=== PATIENT | female | born 1935 | race Caucasian/White ===

== ENCOUNTER 2016-08-16 06:38 | Inpatient (IN) | payer OTHER ==
[2016-07-18 09:13] VITALS: Ht 165.1 cm; Wt 96.3 kg
--- NOTE | 2016-07-18 09:52 | PAT Medication Instructions ---
Service Date Jul 18, 2016. Current Home Medication List Acetaminophen (Tylenol Arthritis Ext Rel), 1,300 MG PO Q8H PRN for Pain Alendronate Sodium (Fosamax), 70 MG PO WK Aspirin (Aspirin 81), 1 TAB PO QAM B-Complex Vitamins (Vitamin B Complex), 1 TAB PO NOON Baclofen (Lioresal), 10-20 MG PO HS PRN for Muscle Spasms Biotin (Biotin), 2,500 MCG PO QAM Calcium (Caltrate), 600 MG PO NOON/PM Epoetin Darci (Procrit), 10,000 UNITS SC [id number] Ferrous Sulfate (Ferrous Sulfate), 1 TAB PO NOON Fish Oil (Vallecitos-3), 1 CAP PO noon/pm Fluticasone Propionate (Nasal) (Flonase), 2 SPRAYS NOVA DAILY PRN for Nasal Congestion Glipizide (Glipizide Xl), 2.5 MG PO NOON/HS Insulin Aspart Protamine & Asp (Novolog Mix 70/30), 3 UNITS SC BIDM Levothyroxine Sodium (Synthroid), 75 MCG PO QAM Losartan Potassium (Cozaar), 50 MG PO noon Metoprolol Succ (Toprol Xl) (Toprol-Xl), 25 MG PO QAM Nitroglycerin (Nitrolingual 60 Union), 1 SPRAY for chest pain Pioglitazone Hcl (Actos), 45 MG PO QAM Probiotic Product (Probiotic), 1 TAB PO QAM Simvastatin (Zocor), 40 MG PO QPM Tramadol (Ultram), 50 MG PO Q6H PRN for Pain [Oxybutynin], 5 MG PO HS Medication Instructions For Your Scheduled Surgery Alendronate Sodium (Fosamax), 70 MG PO WK (continue as usual) Epoetin Darci (Procrit), 10,000 UNITS SC [id number] (continue as usual) Nitroglycerin (Nitrolingual 60 Union), 1 SPRAY for chest pain (if needed) - Hold the following medications 2 weeks prior to surgery: Fish Oil (Vallecitos-3), 1 CAP PO noon/pm Biotin (Biotin), 2,500 MCG PO QAM - Hold the following medications 24 hours prior to surgery: Losartan Potassium (Cozaar), 50 MG PO noon - Hold the following medications the morning of surgery: Probiotic Product (Probiotic), 1 TAB PO QAM Pioglitazone Hcl (Actos), 45 MG PO QAM Glipizide (Glipizide Xl), 2.5 MG PO NOON/HS Ferrous Sulfate (Ferrous Sulfate), 1 TAB PO NOON Insulin Aspart Protamine & Asp (Novolog Mix 70/30), 3 UNITS SC BIDM Calcium (Caltrate), 600 MG PO NOON/PM B-Complex Vitamins (Vitamin B Complex), 1 TAB PO NOON - Take the following medications the morning of surgery with a sip of water: Tramadol (Ultram), 50 MG PO Q6H PRN for Pain (can take up to four hours prior to surgery if needed) Metoprolol Succ (Toprol Xl) (Toprol-Xl), 25 MG PO QAM Levothyroxine Sodium (Synthroid), 75 MCG PO QAM Fluticasone Propionate (Nasal) (Flonase), 2 SPRAYS NOVA DAILY PRN for Nasal Congestion (if needed) Aspirin (Aspirin 81), 1 TAB PO QAM Acetaminophen (Tylenol Arthritis Ext Rel), 1,300 MG PO Q8H PRN for Pain (if needed) - Take the following medications as scheduled the night before surgery: Oxybutynin 5 MG PO HS Tramadol (Ultram), 50 MG PO Q6H PRN for Pain (if needed) Simvastatin (Zocor), 40 MG PO QPM Glipizide (Glipizide Xl), 2.5 MG PO NOON/HS Insulin Aspart Protamine & Asp (Novolog Mix 70/30), 3 UNITS SC BIDM Calcium (Caltrate), 600 MG PO NOON/PM Baclofen (Lioresal), 10-20 MG PO HS PRN for Muscle Spasms Acetaminophen (Tylenol Arthritis Ext Rel), 1,300 MG PO Q8H PRN for Pain If you have any questions please call us at [phone] or [phone] ( Anjali) or [phone]
[2016-07-18 10:27] LABS: BASO % 0.5 %; BASO ABS # 0.03 K/uL (0-0.2); COMPLETE YES; EOS % 3.3 %; HEMATOCRIT 29.6 % (37-47); IG% 0.2 %; LYMPH % 18.3 %; LYMPH ABS # 1.11 K/uL (1.2-3.4); MEAN CELL VOLUME 95.5 fL (80-100); MEAN CORPUSCULAR HEMOGLOBIN 29.4 pg (25-34); MEAN CORPUSCULAR HGB CONC 30.7 g/dl (32-36); MONO % 11.7 %; PLATELET COUNT 191 K/uL (130-400); WHITE BLOOD COUNT 6.08 K/uL (4.8-10.8)
[2016-07-18 10:37] LABS: PROTHROMBIN TIME (PATIENT) 11.1 SECONDS (9.0-12.0)
[2016-07-18 11:00] LABS: BUN/CREATININE RATIO 25.4 (10-20); CALCIUM 8.8 mg/dl (8.5-10.1); CREATININE 1.3 mg/dl (0.60-1.20); POTASSIUM 4.8 mmol/L (3.5-5.1)
[2016-07-18 11:07] LABS: ESTIMATED AVERAGE GLUCOSE 134 mg/dl; HA1C FLAG Normal (Normal)
--- NOTE | 2016-08-13 11:07 | HISTORY & PHYSICAL EXAMINATION ---
DATE OF ADMISSION: 08/16/2016 CHIEF COMPLAINT: Bilateral knee pain, left side greater than right. HISTORY OF PRESENT ILLNESS: The patient is a 80-year-old white female with fairly chronic underlying diabetes, stage III kidney disease and chronic anemia who presents for surgical treatment of her left knee. She has had a long history of bilateral knee pain and discomfort, left side greater than the right. This has been managed by my partner Dr. Benites. She has been getting injections which helped for about a month and that is about it. Pain has become more debilitating over time. The left side is worse than the right. She limps all the time. She has nighttime pain. She would like her left knee replaced. The patient has been seen by her medical doctor, Dr. Green, as well as her oncologist, Dr. Ulloa and is cleared for surgery. PAST MEDICAL HISTORY: Significant for: 1. Diabetes x10 years with a hemoglobin A1c of 6.3. 2. Hypothyroidism. 3. Obesity with a BMI of 35. 4. Sleep apnea. 5. Gastroesophageal reflux disease. 6. Hiatal hernia. 7. Skin cancer. 8. Stage III renal insufficiency. 9. Pernicious anemia. PAST SURGICAL HISTORY: Include: 1. Appendectomy. 2. Cholecystectomy. ALLERGIES: BENEDICT INHIBITORS, METFORMIN, CIPROFLOXACIN. CURRENT MEDICINES: Include: 1. Procrit every 4 weeks. 2. Iron infusions. 3. Ranitidine 300 mg at nighttime. 4. Levothyroxine 75 mcg a day. 5. Losartan 50 mg a day. 6. Fosamax. 7. Phenergan p.r.n. 8. Glipizide 2.5 mg 2 pills 30 minutes before meals. 9. Actos 45 mg. 10. NovoLog insulin 11. Oxybutynin 5 mg daily. 12. Toprol 25 mg. 13. Calcium with D. 14. Aspirin 81 mg a day. SOCIAL HISTORY: A 80-year-old white female. She is . FAMILY HISTORY: Significant for diabetes. REVIEW OF SYSTEMS: Significant for diabetes. Denies any chest pain, no shortness of breath. No history of DVT or PE. She has chronic renal insufficiency. She has got chronic anemia on iron infusions as well as Procrit. PHYSICAL EXAMINATION: GENERAL: Reveals pleasant elderly female. HEAD, EYES, EARS, NOSE, AND THROAT EXAMINATION: Benign. NECK: Supple. No lymphadenopathy. LUNGS: Clear to auscultation. HEART: Regular rate and rhythm. ABDOMEN: Soft, nontender, nondistended. EXTREMITY EXAMINATION: Grossly neurovascularly intact except as follows: Examination of both lower extremities reveals the patient walks independently. Examination of the left knee reveals bony hypertrophy medially. She is tender over the medial joint line. Small knee effusion. Range of motion is 5-120. No instability. X-RAYS: X-rays of the left knee revealed advanced left knee DJD. She has got complete loss of her medial joint space. She has osteophytes in all 3 compartments. ASSESSMENT: A 80-year-old white female diabetic with stage III kidney disease and chronic anemia on Procrit with advanced DJD pain. She has failed conservative treatment and would like to have her left knee replaced. She has been seen by her primary care physician as well as the weatherization director and cleared for surgery. PLAN: We are going to take her the operating room and do a left total knee replacement. The risks and benefits of this procedure to the patient including but not limited to DVT, PE, , infection, neurological injury, neurovascular, bleeding problem, pain, limited range of motion, stiffness, failure to relieve her symptoms, incomplete relief of symptoms, need for further surgery in the future, fracture, leg length inequality, nerve palsy, persistent pain. The patient understands and desires to proceed. Informed consent was obtained. We did talk to her about taking her metoprolol the morning of surgery. [facility]. She is hoping to be discharged to home using [facility] home health program and her 's assistance. I will see her back 2 weeks postop.
[2016-08-16] VITALS (7 sets, daily range): BP systolic 128–172; BP diastolic 53–78; PULSE 54–80; TEMP 36.3–37; O2SAT 92–100
[~2016-08-16] VITALS: Ht 165.1 cm; Wt 96.3 kg
[~2016-08-16 06:38] MED LIST: ACET1TAB84 PO; ACETAMINOPHEN 500 MG TAB PO SCH; ACT/45 PO; ALEN70TA4 PO; ASPI-435 PO; B-COTAB18 PO; BACL1TAB PO; BIOT1CAP4 PO; BUPIVACAINE 0.25% 30 ML VIAL ONE; BUPIVACAINE 0.5 % 5 MG/1 ML PF 10ML VIAL ONE; BUPIVACAINE LIPOSOME 266 MG, BUPIVACAINE/EPINEPHRINE INJ 50 ML, SODIUM CHLORIDE 0.9% PF... INFIL SCH; CALCTAB5 PO; CEFAZOLIN 2000 MG/60 ML D5W 60 ML IV SCH; EPGI20M SC; FAMOTIDINE 20 MG TAB PO SCH; FERR1TAB62 PO; FLUT0.0529 NAE; GABAPENTIN 300 MG CAP PO SCH; GLIP-172 PO; LACTATED RINGER'S 1000ML 1,000 ML IV SCH; LACTATED RINGER'S 1000ML IV SCH; LEVO75TA PO; LOSA50TA6 PO; METO25TA3 PO; METOCLOPRAMIDE HCL 10 MG TAB PO SCH; MISCCAP80 PO; NITRSPR6; NVLGI7030 SC; OMEG10007 PO; OXYBUTYNIN PO; SCOPOLAMINE 1.5 MG TDSY TD SCH; SIMV40TA2 PO; TRAM-10 PO; TRANEXAMIC ACID INJ 1,000 MG in SODIUM CHLORIDE 0.9% 100ML 100 ML IV SCH
--- NOTE | 2016-08-16 07:30 | History & Physical Bridge Note ---
H&P Re-Evaluation Bridge Note: I have examined the patient, reviewed the History & Physical and in the interval since the performance of the History & Physical I have noted the following changes of clinical significance: No changes noted
[2016-08-16] MEDS ORDERED: FENTANYL CITRATE INJ 50 MCG/1 ML 2 ML VIAL ONE (08:33)
[2016-08-16] MEDS ORDERED: MIDAZOLAM HCL 1 MG/ML 2ML VIAL ONE ×2 (08:33→08:34)
[2016-08-16] MEDS ORDERED: LACTATED RINGER'S 1000ML 1,000 ML IV PRN (08:50)
[2016-08-16] MEDS ORDERED: ONDANSETRON INJ 2 MG/ML 2 ML VIAL IV PRN ×2 (09:00→11:15)
[2016-08-16] MEDS ORDERED: FENTANYL CITRATE INJ 50 MCG/1 ML 2 ML VIAL IV PRN (09:00)
[2016-08-16] MEDS ORDERED: BUPIVACAINE/EPINEPHRINE 0.25% 1:200,000 30 ML VIAL ONE (09:21)
[2016-08-16] MEDS ORDERED: BACITRACIN 50000 UNIT VIAL ONE (09:21)
[2016-08-16] MEDS ORDERED: BUPIVACAINE LIPOSOME 1/3% 266 MG/20 ML VIAL INFIL ONE (09:21)
[2016-08-16] MEDS ORDERED: SODIUM CHLORIDE 0.9% PF 50 ML VIAL ONE (09:21)
[2016-08-16] MEDS ORDERED: PROPOFOL IV EMULSION 10 MG/ML 20 ML VIAL IV ONE (09:58)
[2016-08-16] MEDS ORDERED: LIDOCAINE HCL 2% 2 ML VIAL (20MG/ML) ONE (11:01)
--- NOTE | 2016-08-16 11:06 | [facility] Post Operative Brief Note ---
Immediate Operative Summary Operative Date Aug 16, 2016. Pre-Operative Diagnosis Left Knee Advanced Degenerative Joint Disease Post-Operative Diagnosis Left Knee Advanced Degenerative Joint Disease Procedure(s) Performed Left Total Knee Arthroplasty Surgeon Dr. Coronado Ship Manager Surgeon(s) TABATHA Bourne Estimated Blood Loss 50 ml Findings Left Knee DJD Fluids (cc crystalloids) 1200 cc Specimens A. Left Knee Bone and Tissue Drains HMV to OrthoPAT Anesthesia Spinal Complication(s) None Disposition Recovery Room / PACU
[2016-08-16] MEDS ORDERED: GLUCOSE 40% GEL 15 GM TUBE PO PRN (11:15)
[2016-08-16] MEDS ORDERED: BACLOFEN 10 MG TAB PO PRN (11:15)
[2016-08-16] MEDS ORDERED: GLUCAGON FOR INJ 1 MG VIAL SQ PRN (11:15)
[2016-08-16] MEDS ORDERED: METOCLOPRAMIDE HCL INJ 5 MG/ML 2 ML VIAL IV PRN (11:15)
[2016-08-16] MEDS ORDERED: ALUMINUM/MAGNESIUM/SIMETH (MAALOX MAX) 30 ML UDC PO PRN (11:15)
[2016-08-16] MEDS ORDERED: DiphenhydrAMINE HCL 50 MG/ML VIAL IV PRN (11:15)
[2016-08-16] MEDS ORDERED: NO NSAIDS SCH (11:15)
[2016-08-16] MEDS ORDERED: HYDROmorphone INJ 0.5 MG/0.5 ML SYR IV PRN (11:15)
[2016-08-16] MEDS ORDERED: BISACODYL 10 MG SUPP PR PRN (11:15)
[2016-08-16] MEDS ORDERED: FLUTICASONE PROPIONATE NA SPR 16 GM BTL NAE PRN (11:15)
[2016-08-16] MEDS ORDERED: MAGNESIUM HYDROXIDE SUSP 30 ML UDC PO PRN (11:15)
[2016-08-16] MEDS ORDERED: DEXTROSE 50% 50 ML SYR IV PRN (11:15)
[2016-08-16] MEDS ORDERED: TRAMADOL HCL 50 MG TAB PO PRN (11:15)
[2016-08-16] MEDS ORDERED: ZOLPIDEM TARTRATE 5 MG TAB PO PRN (11:15)
[2016-08-16] MEDS ORDERED: SILVER SULFADIAZINE 1% CR 50 GM JAR EXT PRN (11:15)
[2016-08-16] MEDS ORDERED: GLUCOSE 10 TABS/TUBE PO PRN (11:15)
[2016-08-16] MEDS ORDERED: NON-FORMULARY MEDICATION (B-Complex Vitamins (Vitamin B Complex) 1 TAB) PO SCH (11:15)
[2016-08-16] MEDS ORDERED: NITROGLYCERIN SL SPR 4.9 GM BTL SL PRN (11:15)
--- NOTE | 2016-08-16 11:54 | OPERATIVE REPORT ---
DATE OF OPERATION: 08/16/2016 SURGEON: Dr. Alberto Coronado. COATER OPERATOR: TABATHA Yancey PREOPERATIVE DIAGNOSIS: Left knee degenerative joint disease. POSTOPERATIVE DIAGNOSIS: Same. PROCEDURE PERFORMED: Left cemented posterior stabilized total knee arthroplasty. COMPLICATIONS: None. ESTIMATED BLOOD LOSS: Minimal. TOURNIQUET TIME: 72 minutes at 300 mmHg. ANESTHESIA: Spinal with adductor canal block. DRAINS: Hemovac drain to the OrthoPAT system. OPERATIVE INDICATIONS: The patient is a 81-year-old elderly female who has had a long history of bilateral knee pain and discomfort, left side greater than the right. The patient has been through extensive conservative treatment, which had been unsuccessful. Knees have been really limiting her activities and ability to maintain an independent lifestyle. The patient was medically optimized and indicated for total knee arthroplasty. Of note, the patient has a chronic anemia and on Procrit. As a result, we did use the OrthoPAT system to try and conserve blood for reinfusion. We also left the tourniquet up during the case until closure. OPERATIVE FINDINGS: Operative findings revealed advanced left knee DJD. She had extensive grade 4 [id number] disease in all 3 compartments, most severe in the medial side. She had extensive eburnation of the medial femoral condyle and tibial plateau. OPERATIVE IMPLANTS: Operative implants consisted of: 1. Biomet Vanguard size 62.5 left posterior stabilized femoral component. 2. Biomet size 71 tibial tray. 3. A 10-mm posterior stabilized polyethylene insert. 4. A 31 x 8 all poly patella. OPERATIVE PROCEDURE: The patient was taken to the operating room, identified and placed on the operating table in supine position. All contact areas were appropriately padded. IV antibiotics were provided by anesthesia team. A spinal anesthetic and adductor canal block had been provided in the holding area. Loco catheter was placed in sterile fashion. The left thigh tourniquet was then placed and left lower extremity was then prepped and draped in the usual sterile fashion. The left leg was elevated and exsanguinated with an Esmarch and tourniquet was placed at 300 mmHg. An anterior approach of the left knee was then performed through a longitudinal incision centered over the patella. Sharp dissection was carried through the subcutaneous tissue down to the level of the extensor mechanism. A medial parapatellar arthrotomy incision was made. Some subperiosteal dissection was carried out medially. The fat pad was resected from beneath the patellar tendon. The lateral patellofemoral ligament was released. The patella was everted and knee was flexed. The osteophytes were taken off the distal femur. The ACL and PCL were then released from the distal femur and the tibia subluxated anteriorly. The external tibial alignment jig was then placed in the anterior face of the tibia and adjusted 16 mm medially. Proximal tibial cut was made to remove about a millimeter of bone from the most deficient aspect of the posteromedial tibial plateau. This did take a fairly large piece off laterally. Tibia was then sized to a size 71. Some osteophytes were taken off medial and posteromedially. Attention was then drawn to the femur. The distal femur was entered with a sharp drill bit. Intramedullary canal was suctioned. A left 5-degree valgus cutting guide was placed. Distal femoral cutting block was pinned in place. Distal femoral cut was made to take an additional 3 mm of bone off the distal femur. Of note, the patient had significant flexion contracture. Distal femoral cut was made. The femur was then sized to a size 62.5. We did downsize this slightly. The AP cutting block was pinned parallel to the epicondylar axis, which was 6 degrees of external rotation. The anterior cut, anterior chamfer, posterior cut, and posterior chamfer cuts were made. Box cutting guide was placed and adjusted slightly lateral and the box cut was made. The knee was flexed. The remnants of the medial and lateral meniscus were excised. The osteophytes were taken off the posterior aspect of the femur. Trial femoral component was placed. Tibial tray was pinned in maximum external rotation and the drill and stem punch were used to create defect in proximal tibia for the tibial tray. The knee was then trialed and the 10-mm insert fit most appropriately. It was just a little bit loose, but I wanted to leave it loose as her knee was very tight preoperatively. Attention was then drawn to the patella. The patella was cleaned of all soft tissues. Patella thickness measured 24 mm, cut down to 14. It was sized to a size 31 patella. Lug holes were drilled for a 31 patella. The lateral osteophyte was removed. Patella button was placed. Knee was taken through range of motion and the patella tracked nicely with no thumbs test. Attention was then drawn toward placement of the permanent components. All trial components were removed. A bone plug was placed in the distal femur to limit blood loss. A double batch of Palacos G cement was mixed. A left size 62.5 posterior stabilized femoral component, size 71 tibial tray, a 10-mm posterior stabilized polyethylene insert, and a 31 x 8 all poly patella were then cemented in place. The knee was brought out into full extension until cement hardened. A final cement check was then performed. Pericapsular tissues were injected with a total of 100 mL of a combination of 20 mL of Exparel, 30 mL of normal saline, and 50 mL of 0.25% Marcaine with epinephrine. The patient did receive 1 gram of tranexamic acid. Once the cement hardened, the knee was irrigated. Two Hemovac drains were placed in the depth of the wound. The extensor mechanism was then closed with a combination of #1 PDS suture and #1 Vicryl suture in a [id number] fashion. Extensor mechanism was checked and found to be intact. Subcutaneous tissues were then closed with 2-0 Dexon suture in a buried interrupted fashion. Skin was closed skin thao. Leg was then cleaned and dried and a sterile dressing of Xeroform, 4 x 4, sterile cast padding and Neville bandage were applied. The tourniquet was then let down for a tourniquet time 72 minutes. The patient then transferred to the recovery room in stable condition. The patient tolerated the procedure well with no complications. All needle and sponge counts were correct at the end of the operation. I attest to the content of the Intraoperative Record and any orders documented therein. Any exceptio ns are noted below.
--- NOTE | 2016-08-16 11:55 | Anesthesiology Progress Note ---
Anesthesia Post Op Note Date & Time Aug 16, 2016 at 11:54 Vital Signs Pain Intensity: 0 Vital Signs Past 12 Hours Date Time Temp Pulse Resp B/P Pulse Ox O2 Delivery O2 Flow Rate FiO2 08/16/16 11:50 36.8 08/16/16 11:42 60 19 97 08/16/16 11:42 60 19 08/16/16 11:40 145/53 08/16/16 11:37 59 16 08/16/16 11:37 58 16 98 08/16/16 11:35 137/53 08/16/16 11:32 79 13 08/16/16 11:32 79 13 98 08/16/16 11:30 137/57 08/16/16 11:27 69 15 08/16/16 11:27 71 15 98 08/16/16 11:26 71 20 98 08/16/16 11:26 67 20 08/16/16 11:25 143/64 08/16/16 11:21 82 16 99 08/16/16 11:21 83 16 08/16/16 11:20 136/55 08/16/16 11:16 74 20 08/16/16 11:16 36.3 75 20 153/55 96 Nasal Cannula 2 08/16/16 11:16 67 20 153/55 94 08/16/16 07:31 36.9 68 18 172/66 97 Room Air Notes Mental Status: alert / awake / arousable, participated in evaluation Pt Amnestic to Procedure: No (recall as expected) Nausea / Vomiting: adequately controlled Pain: adequately controlled Airway Patency, RR, SpO2: stable & adequate BP & HR: stable & adequate Hydration State: stable & adequate Neuraxial Anesthesia: was administered, sensory block is resolving Anesthetic Complications: no major complications apparent Pt doing well.
[2016-08-16] MEDS ORDERED: PHENYLEPHRINE 100MCG/ML 5ML SYR ONE (12:02)
[2016-08-16] MEDS ORDERED: EpHEDrine SULFATE 50MG/5ML SYR ONE (12:07)
--- NOTE | 2016-08-16 12:14 | DIAGNOSTIC IMAGING REPORT ---
LEFT KNEE 1 OR 2 VIEWS ROUTINE CLINICAL HISTORY: AP/LATERAL IN PACU LEFT KNEE pain. Postoperative. COMPARISON: None. DISCUSSION: Status post total left knee arthroplasty. Good contact between prosthetic and underlying bone. Surgical drains are in position. Expected soft tissue postoperative change. IMPRESSION: Anatomic alignment status post total left knee arthroplasty. Electronically signed by: Dean Salinas M.D. 08/16/2016 12:11 PM Dictated Date/Time: 08/16/2016 12:11 PM
--- NOTE | 2016-08-16 14:15 | Medical Consult ---
Consultation Date of Consultation: Aug 16, 2016 @ 14:05 . Attending Physician: Alberto Coronado M.D. . Reason for Consultation: medical management . History of Present Illness 81 YO female followed by Dr. Green for Family Medicine. History of hypertension, DM type 2 on insulin, and other problems noted below. Left TKA performed today by Dr. Coronado under spinal anesthesia with adductor canal block. EBL negative. Doing well postoperatively. No chest pain. Minimal cough; no dyspnea. No nausea or vomiting. Postop pain well-controlled. Postoperative blood sugar was 132. . 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 Family History FATHER Pancreatic cancer BROTHER Cancer DAUGHTER Cervical cancer Social History Smoking Status: Former Smoker Alcohol Use: none Marital Status: Housing Status: lives with family Allergies Coded Allergies: Metformin (Verified Allergy, Intermediate, GI SYMPTOMS, 08/16/16) Ciprofloxacin (Verified Allergy, Mild, RASH, 08/16/16) BENEDICT Inhibitors (Verified Allergy, Unknown, COUGH, 08/16/16) Home Medications Reported Home Medications Medications Dose Route/Sig Max Daily Dose Days Date Category Dose Instructions [Oxybutynin] 5 Mg PO HS 07/18/16 Reported Vitamin B Complex (B-Complex Vitamins) 1 Tab Tab 1 Tab PO NOON 07/18/16 Reported Biotin 2,500 Mcg Cap 2,500 Mcg PO QAM 07/18/16 Reported [place]-3 (Fish Oil) 1 Ea Cap 1 Cap PO NOON/PM 07/18/16 Reported Probiotic (Probiotic Product) 1 Cap Cap 1 Tab PO QAM 07/18/16 Reported Caltrate (Calcium) 600 Mg Tab 600 Mg PO NOON/PM 12/09/15 Reported Tylenol Arthritis Ext Rel (Acetaminophen) 650 Mg Cplt 1,300 Mg PO Q8H PRN 12/09/15 Reported Cozaar (Losartan Potassium) 50 Mg Tab 50 Mg PO NOON 12/09/15 Reported Toprol-Xl (Metoprolol Succinate) 25 Mg Tabcr 25 Mg PO QAM 12/09/15 Reported Zocor (Simvastatin) 40 Mg Tab 40 Mg PO QPM 12/09/15 Reported Nitrolingual 60 [place] (Nitroglycerin) 1 [place] 1 [place] PRN 10/19/15 Reported Ultram (Tramadol HCl) 50 Mg Tab 50 Mg PO Q6H PRN 10/19/15 Reported Aspirin 81 (Aspirin) 81 Mg Tab 1 Tab PO QAM 11/05/14 Reported Novolog Mix 70/30 (Insulin Aspart Protamine & Asp) 1 Inj Inj 3 Units SC BIDM 11/05/14 Reported 6 units when blood sugar is high Lioresal (Baclofen) 10 Mg Tab 10-20 Mg PO HS PRN 11/05/14 Reported Ferrous Sulfate 325 Mg Tab 1 Tab PO NOON 11/05/14 Reported Flonase (Fluticasone Propionate (Nasal)) 50 Mcg/Act Spr 2 Sprays NOVA DAILY PRN 11/05/14 Reported Actos (Pioglitazone Hcl) 45 Mg Tab 45 Mg PO QAM 11/05/14 Reported Fosamax (Alendronate Sodium) 70 Mg Tab 70 Mg PO WK 11/05/14 Reported Synthroid (Levothyroxine Sodium) 75 Mcg Tab 75 Mcg PO QAM 11/05/14 Reported Glipizide Xl (Glipizide) 2.5 Mg Tab 2.5 Mg PO NOON/HS 11/05/14 Reported Procrit (Epoetin Darci) 20,000 Units Inj 10,000 Units SC [id number] 11/05/14 Reported NEXT DOSE 08/03/16 Current Inpatient Medications Current Inpatient Medications Medications (Trade) Dose Ordered Sig/Lizy Route Start Time Stop Time Status Last Admin Dose Admin Lactated Ringer's 1,000 ml @ 60 mls/hr [id number] IV 08/16/16 06:00 08/16/16 22:39 08/16/16 07:50 60 MLS/HR Cefazolin Sodium (Ancef 2000mg/60 ml D5W) 60 ml @ 100 mls/hr PREOP IV 08/16/16 06:00 08/16/16 18:00 08/16/16 09:29 100 MLS/HR Acetaminophen 1000 mg 1,000 mg PREOP PO 08/16/16 06:00 08/16/16 18:00 08/16/16 07:48 1,000 MG Bupivacaine Liposome/ Bupivacaine HCl/ Epinephrine Bitart/Sodium Chloride/Syringe (Exparel/ BUPIVACAINE/ EPINEPHRINE 0.25% Inj/Sodium Chloride 0.9% Pf Inj/Syringe) 100 ml @ 0 mls/hr 06 INFIL 08/16/16 06:00 08/16/16 18:00 08/16/16 10:30 100 MLS/HR Famotidine (Pepcid Tab) 20 mg PREOP PO 08/16/16 06:00 08/16/16 18:00 08/16/16 07:50 20 MG Gabapentin (Neurontin Cap) 300 mg PREOP PO 08/16/16 06:00 08/16/16 18:00 08/16/16 07:47 300 MG Metoclopramide HCl (Reglan Tab) 10 mg PREOP PO 08/16/16 06:00 08/16/16 18:00 08/16/16 07:48 10 MG Scopolamine (Transderm-Scop Patch) 1.5 mg PREOP TD 08/16/16 06:00 08/16/16 15:00 08/16/16 07:50 1.5 MG Miscellaneous (Remove Transderm-Scop Patch) 1 ea Q72H N/A 08/19/16 06:00 08/19/16 06:01 Miscellaneous Information 1 ea 1 ea QS N/A 08/16/16 16:00 08/18/16 05:59 Lactated Ringer's (Lr 1000ml) 1,000 ml @ 15 mls/hr Q24H IV 08/16/16 06:00 08/16/16 18:00 Fentanyl Citrate (Fentanyl Inj) 25 mcg Q5M PRN IV 08/16/16 09:00 08/16/16 16:00 Ondansetron HCl 4 mg 4 mg ONE PRN IV 08/16/16 09:00 08/16/16 16:00 Lactated Ringer's 1,000 ml @ 130 mls/hr Q7H42M PRN IV 08/16/16 08:50 08/16/16 16:00 Sodium Chloride 1,000 ml @ 100 mls/hr Q10H IV 08/16/16 14:30 08/17/16 14:29 Cefazolin Sodium/ Dextrose (Ancef Iv/D5 50ml) 60 ml @ 100 mls/hr Q8H IV 08/16/16 18:00 08/17/16 02:35 UNV Miscellaneous Medication (No Nsaids) 1 ea UD N/A 08/16/16 11:15 09/15/16 11:14 Acetaminophen (Tylenol Tab) 1,000 mg Q8H PO 08/16/16 18:00 09/15/16 17:59 Magnesium Hydroxide (Milk Of Magnesia Susp) 30 ml Q6H PRN PO 08/16/16 11:15 09/15/16 11:14 Bisacodyl (Dulcolax Supp) 10 mg DAILY PRN NM 08/16/16 11:15 09/15/16 11:14 Docusate Sodium (coLACE CAP) 100 mg BID PO 08/16/16 21:00 09/15/16 20:59 Diphenhydramine HCl (Benadryl Cap) 25 mg Q8H PRN PO 08/16/16 11:15 09/15/16 11:14 Diphenhydramine HCl (Benadryl Inj) 25 mg Q8H PRN IV 08/16/16 11:15 09/15/16 11:14 Al Hydrox/Mg Hydrox/Simethicone (Maalox Max Susp) 15 ml Q4H PRN PO 08/16/16 11:15 09/15/16 11:14 Zolpidem Tartrate (Ambien Tab) 5 mg HSZ PRN PO 08/16/16 11:15 09/15/16 11:14 Multivitamins (Multivitamin Tab) 1 tab QAM PO 08/17/16 09:00 09/16/16 08:59 Ondansetron HCl (Zofran Inj) 4 mg Q6H PRN IV 08/16/16 11:15 09/15/16 11:14 Metoclopramide HCl (Reglan Inj) 10 mg Q6H PRN IV 08/16/16 11:15 09/15/16 11:14 Ferrous Gluconate (Ferrous Gluconate Tab) 324 mg TIDM PO 08/16/16 17:45 09/15/16 17:44 Pantoprazole Sodium (Protonix Tab) 40 mg QAM PO 08/17/16 09:00 09/16/16 08:59 Silver Sulfadiazine (Silvadene 1% Crm 50GM Jar) 1 appln BID PRN EXT 08/16/16 11:15 09/15/16 11:14 Aspirin (Ecotrin Tab) 325 mg BID PO 08/16/16 21:00 09/15/16 20:59 Tramadol HCl 1 tablet for pain rating... Q4H PRN PO 08/16/16 11:15 09/15/16 11:14 Tranexamic Acid/ Sodium Chloride (Cyklokapron Inj/ Nss 100ml) 110 ml @ 660 mls/hr Q6H IV 08/16/16 16:00 08/16/16 16:09 Baclofen (Lioresal Tab) 10 mg HS PRN PO 08/16/16 11:15 09/15/16 11:14 Fluticasone Propionate (Flonase Nasal [place]) 2 sprays DAILY PRN NOVA 08/16/16 11:15 09/15/16 11:14 Insulin Aspart Prota 70%/Aspart 30% (novoLOG MIX 70/ 30) 3 units BIDM SC 08/16/16 17:45 09/15/16 17:59 UNV Levothyroxine Sodium (Synthroid Tab) 75 mcg QAM PO 08/17/16 09:00 09/16/16 08:59 UNV Losartan Potassium (coZAAR TAB) 50 mg DAILY PO 08/17/16 09:00 09/16/16 08:59 UNV Metoprolol Succinate (Toprol Xl Tab) 25 mg QAM PO 08/17/16 09:00 09/16/16 08:59 UNV Nitroglycerin (Nitrolingual [place]) 2 sprays Q1H PRN SL 08/16/16 11:15 09/15/16 11:14 UNV Pioglitazone HCl (ACTos TAB) 45 mg QAM PO 08/17/16 09:00 09/16/16 08:59 UNV Simvastatin (Zocor Tab) 40 mg QPM PO 08/16/16 21:00 09/15/16 20:59 UNV Tramadol HCl (Ultram Tab) 50 mg Q6H PRN PO 08/16/16 11:15 09/15/16 11:14 UNV Non-Formulary Medication (B-Complex Vitamins (Vitamin B Complex)) 1 tab NOON PO 08/16/16 11:15 09/15/16 11:14 UNV Non-Formulary Medication (Biotin ) 2,500 mcg QAM PO 08/17/16 09:00 09/16/16 08:59 UNV Non-Formulary Medication (Calcium (Caltrate)) 600 mg NOON/PM PO 08/16/16 11:15 09/15/16 11:14 UNV Non-Formulary Medication (Probiotic Product (Probiotic)) 1 tab QAM PO 08/17/16 09:00 09/16/16 08:59 UNV Non-Formulary Medication ([Oxybutynin] ) 5 mg HS PO 08/16/16 21:00 09/15/16 20:59 UNV Hydromorphone HCl (Dilaudid Inj) 0.5 mg Q1H PRN IV 08/16/16 11:15 08/30/16 11:14 UNV Insulin Human Regular (novoLIN-R) 1 units ACHS SC 08/16/16 16:00 09/15/16 15:59 UNV Glucose (Glucose 40% Gel) 15-30 GRAMS 15 GRAMS... UD PRN PO 08/16/16 11:15 09/15/16 11:14 UNV Glucose (Glucose Chew Tab) 4-8 Tablets 4 Tabl... UD PRN PO 08/16/16 11:15 09/15/16 11:14 UNV Dextrose (Dextrose 50% 50ML Syringe) 25-50ML OF 50% DW IV FOR... UD PRN IV 08/16/16 11:15 09/15/16 11:14 UNV Glucagon (Glucagon Inj) 1 mg UD PRN SQ 08/16/16 11:15 09/15/16 11:14 UNV Review of Systems Constitutional: No fever Respiratory: + cough (mild postop cough), No shortness of breath Cardiovascular: No chest pain Abdomen: No GI bleeding, No constipation, No diarrhea, No nausea, No vomiting Musculoskeletal: + joint pain (left knee) Genitourinary - Female: No dysuria, No hematuria Endocrine: + problem reported (blood sugars well-controlled at home) Hematologic / Lymphatic: + abnormal bleeding/bruising (bruises easily) Physical Exam Date Time Temp Pulse Resp B/P Pulse Ox O2 Delivery O2 Flow Rate FiO2 08/16/16 12:42 98 Nasal Cannula 2.0 08/16/16 12:10 36.5 68 16 136/57 98 Nasal Cannula 2.0 08/16/16 12:10 98 Nasal Cannula 2.0 08/16/16 12:00 62 20 143/55 96 Nasal Cannula 2 08/16/16 11:51 58 21 97 08/16/16 11:51 61 21 08/16/16 11:50 140/54 08/16/16 11:50 36.8 08/16/16 11:48 58 16 97 08/16/16 11:48 59 16 08/16/16 11:45 143/66 08/16/16 11:43 68 17 08/16/16 11:43 71 17 96 08/16/16 11:42 60 19 97 08/16/16 11:42 60 19 08/16/16 11:40 145/53 08/16/16 11:37 59 16 08/16/16 11:37 58 16 98 08/16/16 11:35 137/53 08/16/16 11:32 79 13 08/16/16 11:32 79 13 98 08/16/16 11:30 137/57 08/16/16 11:27 69 15 08/16/16 11:27 71 15 98 08/16/16 11:26 71 20 98 08/16/16 11:26 67 20 08/16/16 11:25 143/64 08/16/16 11:21 82 16 99 08/16/16 11:21 83 16 08/16/16 11:20 136/55 08/16/16 11:16 74 20 08/16/16 11:16 36.3 75 20 153/55 96 Nasal Cannula 2 08/16/16 11:16 67 20 153/55 94 08/16/16 07:31 36.9 68 18 172/66 97 Room Air General Appearance: WD/WN, no apparent distress Head: normocephalic, atraumatic Eyes: normal inspection, PERRL, EOMI, sclerae normal ENT: normal ENT inspection, hearing grossly normal, + pertinent finding (upper and lower dentures) Neck: supple, no adenopathy, thyroid normal, no JVD, trachea midline Respiratory/Chest: lungs clear, normal breath sounds, no respiratory distress, no accessory muscle use Cardiovascular: regular rate, rhythm, no edema, no gallop, no JVD, no murmur Abdomen/GI: normal bowel sounds, non tender, soft, no organomegaly Genitourinary - Female: + pertinent finding ([place] cath draining clear urine) Extremities/Musculoskelatal: + pertinent finding (LLE wrapped with elastic bandage; RLE w anti-embolic stocking applied; bilad SCD's applied) Neurologic/Psych: 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 II-XII nml as tested (PERRL, EOMI), alert, normal mood/ affect, oriented x 3 Lymphatic: no adenopathy (no cervical adenopathy) Laboratory Results Item Value Date Time Hemoglobin 9.1 g/dL L 07/18/16 1008 Hematocrit 29.6 % L 07/18/16 1008 White Blood Count 6.08 K/uL 07/18/16 1008 Platelet Count 191 K/uL 07/18/16 1008 Prothrombin Time 11.1 SECONDS 07/18/16 1008 Prothromb Time International Ratio 1.0 07/18/16 1008 Activated Partial Thromboplast Time 25.6 SECONDS 07/18/16 1008 Sodium Level 144 mmol/L 07/18/16 1008 Potassium Level 4.8 mmol/L 07/18/16 1008 Chloride Level 112 mmol/L H 07/18/16 1008 Carbon Dioxide Level 28 mmol/L 07/18/16 1008 Blood Urea Nitrogen 33 mg/dl H 07/18/16 1008 Creatinine 1.30 mg/dl H 07/18/16 1008 Random Glucose 109 mg/dl H 07/18/16 1008 Calcium Level 8.8 mg/dl 07/18/16 1008 EKG performed 18-JUL-2016 10:13:07 reviewed: NSR at 60 / min, no acute changes. Last 24 Hours Test 08/16/16 06:59 08/16/16 11:24 08/16/16 12:22 Bedside Glucose 117 mg/dl 132 mg/dl 146 mg/dl . Assessment & Plan S/P LEFT TKA Doing well postoperatively. HYPERTENSION Postop BP 136/57. Continue metoprolol and losartan with hold parameters. SLEEP APNEA Continue CPAP. GERD Usually takes ranitidine at home. Pantoprazole ordered postoperatively. CKD III CKD III with baseline creatinine of 1.3-1.6. Preop creatinine 1.3. Avoid NSAID's if possible. Follow labs. DM TYPE 2 Well-controlled at home. Preop Hgb A1C = 6.3. Patient appears to be very sensitive to insulin. Hold glipizide and NovoLog Mix 70/30 during hospital stay. Utilize Lantus / NovoLog during her hospital stay, approximating her home insulin dosage. HYPOTHYROIDISM Continue usual dose of levothyroxine. ANEMIA Chronic anemia, apparently due to combination of B12 deficiency and CKD. Follow H/H postop. VTE PROPHYLAXIS Per Ortho protocol. TEDS and SCD's applied postop. Thank you for this consultation. We will follow the patient with you during their hospital stay. I will be on duty until 23:[address] Nelson will be rounding during day shift starting 08/17. You can reach a member of the [facility]ist Team 28/11 via pager @ [phone]. You can reach me via cell @ [phone]. .
[2016-08-16] MEDS: TRAMADOL HCL 50 MG TAB PO PRN ×2 (14:25→18:29)
[2016-08-16] MEDS: SODIUM CHLORIDE 0.9% 1000ML 1,000 ML IV SCH (14:26)
[2016-08-16] MEDS: CHECK SCOPOLAMINE PATCH PLACEMENT SCH (15:52)
[2016-08-16] MEDS ORDERED: INSULIN HUMAN REGULAR SC SCH (16:00)
[2016-08-16] MEDS ORDERED: TRANEXAMIC ACID INJ 1,000 MG in SODIUM CHLORIDE 0.9% 100ML 100 ML IV SCH (16:00)
[2016-08-16] MEDS ORDERED: INSULIN 70% ASPART PROTAMINE/30% ASPART SC SCH (17:45)
[2016-08-16] MEDS: CEFAZOLIN IV 2,000 MG in DEXTROSE 5% 50ML 50 ML IV SCH (18:05)
[2016-08-16] MEDS: INSULIN ASPART 100 UNITS/ML 3 ML PEN SC SCH ×2 (18:13→21:24)
[2016-08-16] MEDS: ACETAMINOPHEN 500 MG TAB PO SCH (18:16)
[2016-08-16] MEDS: FERROUS GLUCONATE 324 MG TAB PO SCH (18:16)
--- NOTE | 2016-08-16 18:32 | PROGRESS NOTE ---
DATE: 08/16/2016 SUBJECTIVE: A 81-year-old female postop from a left knee replacement. She is doing well. Not having any pain yet. No chest pain or shortness of breath. Not feeling dizzy or lightheaded. OBJECTIVE: VITAL SIGNS: Temperature is 36.3. Vital signs stable. GENERAL: Physical examination reveals a pleasant elderly female. She is sitting up in bed and looks pretty comfortable. LUNGS: Clear to auscultation. HEART: Regular rate and rhythm. ABDOMEN: Soft, nontender, and nondistended. EXTREMITIES: Grossly neurovascularly intact except as follows: Examination of the left lower extremity reveals the leg to be well aligned. She can dorsiflex and plantarflex her foot appropriately. She is neurologically intact. X-RAYS: X-rays of the left knee from the recovery room reviewed. It shows left cemented posterior stabilized total knee arthroplasty. Components looked to be in good position. No signs of problems. ASSESSMENT: A 81-year-old white female postop from a left knee replacement, doing well. Pain is controlled. She is neurologically intact. PLAN: 1. DVT prophylaxis including thigh-high TEDs, SCDs, and aspirin twice a day. 2. PT/OT. Weightbearing as tolerated. Left total knee protocol. 3. Pain control. Doing well with current pain regimen. 4. IV antibiotics x24 hours. 5. Disposition: She is planning to be discharged to home with some home health once adequately recovered.
[2016-08-16] MEDS: SIMVASTATIN 40 MG TAB PO SCH (21:16)
[2016-08-16] MEDS: DOCUSATE SODIUM 100 MG CAP PO SCH (21:16)
[2016-08-16] MEDS: ASPIRIN 325 MG ECTAB PO SCH (21:16)
[2016-08-16] MEDS: INSULIN GLARGINE SOLOSTAR 100 UNITS/ML 3 ML PEN SC SCH (21:23)
[2016-08-16] MEDS: OXYBUTYNIN CHLORIDE 5 MG TAB PO SCH (21:32)
[2016-08-16] MEDS ORDERED: MICONAZOLE NITRATE POWDER 43 GM EXT PRN (23:30)
[2016-08-17] VITALS (14 sets, daily range): BP systolic 138–188; BP diastolic 62–80; PULSE 65–77; TEMP 36.5–37.6; O2SAT 87–98
[2016-08-17] MEDS: CHECK SCOPOLAMINE PATCH PLACEMENT SCH ×3 (00:07→15:43)
[2016-08-17] MEDS: SODIUM CHLORIDE 0.9% 1000ML 1,000 ML IV SCH ×2 (00:44→12:10)
[2016-08-17] MEDS: INSULIN ASPART 100 UNITS/ML 3 ML PEN SC SCH ×5 (00:47→21:21)
[2016-08-17] MEDS: CEFAZOLIN IV 2,000 MG in DEXTROSE 5% 50ML 50 ML IV SCH (02:02)
[2016-08-17] MEDS: ACETAMINOPHEN 500 MG TAB PO SCH ×3 (02:02→18:05)
[2016-08-17] MEDS: TRAMADOL HCL 50 MG TAB PO PRN ×5 (02:11→19:44)
[2016-08-17 05:35] LABS: HEMATOCRIT 26.7 % (37-47); MEAN CELL VOLUME 92.4 fL (80-100); MEAN CORPUSCULAR HEMOGLOBIN 29.8 pg (25-34); MEAN CORPUSCULAR HGB CONC 32.2 g/dl (32-36); MEAN PLATELET VOLUME 10.2 fL (7.4-10.4); PLATELET COUNT 165 K/uL (130-400); RED BLOOD COUNT 2.89 M/uL (4.2-5.4); WHITE BLOOD COUNT 9.27 K/uL (4.8-10.8)
[2016-08-17 05:56] LABS: BUN/CREATININE RATIO 17.3 (10-20); CALCIUM 8.1 mg/dl (8.5-10.1); CREATININE 1.4 mg/dl (0.60-1.20); POTASSIUM 4.3 mmol/L (3.5-5.1)
[2016-08-17] MEDS: LEVOTHYROXINE 75 MCG TAB PO SCH (06:17)
--- NOTE | 2016-08-17 07:37 | PROGRESS NOTE ---
DATE: 08/17/2016 SUBJECTIVE: A 81-year-old white female postop day 1 from a left total knee replacement. She is doing pretty well. Pain is reasonably well controlled. No chest pain or shortness of breath. Not feeling dizzy or lightheaded. OBJECTIVE: VITAL SIGNS: Temperature 36.5. Vital signs stable. PHYSICAL EXAMINATION: GENERAL: Reveals a pleasant middle-aged female. She is sitting up in bed, looks pretty comfortable. LUNGS: Clear to auscultation. HEART: Regular rate and rhythm. ABDOMEN: Soft, nontender, nondistended. EXTREMITIES: Grossly neurovascularly intact except as follows: Examination of the left lower extremity reveals the leg to be well aligned. The patient can dorsiflex and plantarflex her foot appropriately. NEUROLOGIC: She is neurologically intact. LABORATORY DATA: Hemoglobin 8.6, hematocrit 26.7. Electrolytes are stable. Creatinine stable at 1.4. ASSESSMENT: A 81-year-old white female postop day 1 from left total knee replacement, doing pretty well. She has a history of chronic anemia. She is anemic but asymptomatic currently and we will follow her H\T\H. PLAN: 1. DVT prophylaxis including thigh-high TEDs, SCDs, and aspirin twice a day. 2. PT/OT. Weight bear as tolerated. Left total knee protocol. 3. Pain control. Doing pretty well with current pain regimen. 4. Anemia. She is anemic but currently asymptomatic. We will continue to follow her H\T\H and continue with iron supplementation. She gets Procrit monthly. 5. Disposition: She is hoping to be discharged to home with some home health once adequately recovered.
--- NOTE | 2016-08-17 08:49 | Anesthesiology Progress Note ---
Anesthesia Post Op Note Date & Time Aug 17, 2016 at 08:48 Vital Signs Vital Signs Past 12 Hours Date Time Temp Pulse Resp B/P Pulse Ox O2 Delivery O2 Flow Rate FiO2 08/17/16 07:01 36.5 72 19 175/74 92 Room Air 08/17/16 03:59 36.9 77 18 138/62 95 Room Air 08/16/16 23:35 37.0 62 18 137/53 92 CPAP Notes Mental Status: alert / awake / arousable, participated in evaluation Pt Amnestic to Procedure: Yes Nausea / Vomiting: adequately controlled Pain: adequately controlled Airway Patency, RR, SpO2: stable & adequate BP & HR: stable & adequate Hydration State: stable & adequate Neuraxial Anesthesia: sensory block resolved Anesthetic Complications: no major complications apparent
[2016-08-17] MEDS: MULTIVITAMIN TAB PO SCH (08:58)
[2016-08-17] MEDS: FERROUS GLUCONATE 324 MG TAB PO SCH ×3 (08:58→18:05)
[2016-08-17] MEDS: ASPIRIN 325 MG ECTAB PO SCH ×2 (08:59→20:58)
[2016-08-17] MEDS: CALCIUM 600MG + VIT D 400 IU TAB PO SCH (08:59)
[2016-08-17] MEDS: METOPROLOL SUCC 25MG EXT REL TAB PO SCH (08:59)
[2016-08-17] MEDS ORDERED: NON-FORMULARY MEDICATION (Biotin 2,500 MCG) PO SCH (09:00)
[2016-08-17] MEDS ORDERED: NON-FORMULARY MEDICATION (Probiotic Product (Probiotic) 1 TAB) PO SCH (09:00)
[2016-08-17] MEDS: PANTOprazole SOD 40 MG TAB PO SCH (09:00)
[2016-08-17] MEDS ORDERED: PIOGLITAZONE TAB 15 MG TAB PO SCH (09:00)
[2016-08-17] MEDS: LOSARTAN POTASSIUM 50 MG TAB PO SCH (09:01)
[2016-08-17] MEDS: DOCUSATE SODIUM 100 MG CAP PO SCH ×2 (09:01→20:58)
[2016-08-17] MEDS: INSULIN GLARGINE SOLOSTAR 100 UNITS/ML 3 ML PEN SC SCH ×2 (09:06→21:22)
--- NOTE | 2016-08-17 10:31 | Progress Note ---
Medicine Progress Note Date & Time of Visit: Aug 17, 2016 at 08:59. (Mari Hansen PA-C) Subjective Patient seen and examined on POD#1 s/p L TKA by Dr. Coronado. Pt was nauseous earlier this morning which resolved with Zofran. She is currently finishing up her breakfast without issues. She rates knee pain 7/10 currently. Has received Tramadol earlier this morning which helped. She denies dizziness, chest pain, SOB, abdominal pain, vomiting. Had 2 BM's after surgery yesterday. Loco catheter was removed this morning & has not voided yet at time of my exam. (Mari Hansen PA-C) Objective Last 8 Hrs Date Time Temp Pulse Resp B/P Pulse Ox O2 Delivery O2 Flow Rate FiO2 08/17/16 07:20 Room Air 08/17/16 07:01 36.5 72 19 175/74 92 Room Air 08/17/16 03:59 36.9 77 18 138/62 95 Room Air Physical Exam: General-pleasant alert elderly female, sitting up in bed with breakfast tray Eyes-anicteric ENT-hearing grossly intact Neck-trachea midline Lungs-CTA bilaterally, no wheezes, crackles, rhonchi, no respiratory distress Heart-RRR, no murmur Abdomen-soft , nontender, normal bowel sounds Extremities- s/p L TKA, drain in place with sanguinous drainage, SCD's in place bilaterally Neuro- alert, oriented x 3, affect normal Laboratory Results: Last 24 Hours Test 08/16/16 11:24 08/16/16 12:22 08/16/16 16:55 08/16/16 20:44 Bedside Glucose 132 mg/dl 146 mg/dl 231 mg/dl 280 mg/dl Test 08/17/16 00:42 08/17/16 05:13 08/17/16 08:11 Bedside Glucose 161 mg/dl 193 mg/dl White Blood Count 9.27 K/uL Red Blood Count 2.89 M/uL Hemoglobin 8.6 g/dL Hematocrit 26.7 % Mean Corpuscular Volume 92.4 fL Mean Corpuscular Hemoglobin 29.8 pg Mean Corpuscular Hemoglobin Concent 32.2 g/dl RDW Standard Deviation 45.7 fL RDW Coefficient of Variation 13.6 % Platelet Count 165 K/uL Mean Platelet Volume 10.2 fL Sodium Level 141 mmol/L Potassium Level 4.3 mmol/L Chloride Level 109 mmol/L Carbon Dioxide Level 25 mmol/L Anion Gap 7.0 mmol/L Blood Urea Nitrogen 24 mg/dl Creatinine 1.40 mg/dl Est Creatinine Clear Calc Drug Dose 37.4 ml/min Estimated GFR () 41.3 Estimated GFR (Non- 35.6 BUN/Creatinine Ratio 17.3 Random Glucose 185 mg/dl Calcium Level 8.1 mg/dl (Mari Hansen, PA-C) Assessment & Plan S/P LEFT TKA POD #[address] Coronado Pain control, wound care, activity per ortho Continue incentive spirometry PT/ OT CHRONIC ANEMIA From B12 deficiency and CKD Hg 9.1 ->8.6 EBL from surgery 50 mL Continue to monitor daily H/H Would transfuse for Hg < 8 HYPERTENSION BP intermittently elevated likely secondary to pain Continue metoprolol and losartan CKD STAGE III Baseline creat 1.3-1.6 Creat 1.3 preop -> 1.4 Avoid nephrotoxins including NSAIDs Monitor renal function DM TYPE 2 Controlled, recent A1c =6.3 Hold home oral diabetic medications and novolog 70/30 On basal Lantus and Novolog sliding scale BSG's running high 100s SLEEP APNEA Continue CPAP GERD On ranitidine at home PPI during hospitalization HYPOTHYROIDISM Continue levothyroxine VTE PROPHYLAXIS Per ortho DISPOSITION Per ortho Thank you for this consultation. We will follow the patient with you during their hospital stay. [facility] via pager @ . Patient seen in collaboration with Dr. Nelson. Please see his addendum. Current Inpatient Medications: Current Inpatient Medications Medications (Trade) Dose Ordered Sig/Lizy Route Start Time Stop Time Status Last Admin Dose Admin Miscellaneous (Remove Transderm-Scop Patch) 1 ea Q72H N/A 08/19/16 06:00 08/19/16 06:01 Miscellaneous Information 1 ea 1 ea QS N/A 08/16/16 16:00 08/18/16 05:59 08/17/16 07:22 1 EA Sodium Chloride (Nss 1000ml) 1,000 ml @ 100 mls/hr Q10H IV 08/16/16 14:30 08/17/16 14:29 08/17/16 00:44 100 MLS/HR Miscellaneous Medication (No Nsaids) 1 ea UD N/A 08/16/16 11:15 09/15/16 11:14 Acetaminophen (Tylenol Tab) 1,000 mg Q8H PO 08/16/16 18:00 09/15/16 17:59 08/17/16 02:02 1,000 MG Magnesium Hydroxide (Milk Of Magnesia Susp) 30 ml Q6H PRN PO 08/16/16 11:15 09/15/16 11:14 Bisacodyl (Dulcolax Supp) 10 mg DAILY PRN [place] 08/16/16 11:15 09/15/16 11:14 Docusate Sodium (coLACE CAP) 100 mg BID PO 08/16/16 21:00 09/15/16 20:59 08/16/16 21:16 100 MG Diphenhydramine HCl (Benadryl Cap) 25 mg Q8H PRN PO 08/16/16 11:15 09/15/16 11:14 Diphenhydramine HCl (Benadryl Inj) 25 mg Q8H PRN IV 08/16/16 11:15 09/15/16 11:14 Al Hydrox/Mg Hydrox/Simethicone (Maalox Max Susp) 15 ml Q4H PRN PO 08/16/16 11:15 09/15/16 11:14 Zolpidem Tartrate (Ambien Tab) 5 mg HSZ PRN PO 08/16/16 11:15 09/15/16 11:14 Multivitamins (Multivitamin Tab) 1 tab QAM PO 08/17/16 09:00 09/16/16 08:59 Ondansetron HCl (Zofran Inj) 4 mg Q6H PRN IV 08/16/16 11:15 09/15/16 11:14 08/17/16 07:25 4 MG Metoclopramide HCl (Reglan Inj) 10 mg Q6H PRN IV 08/16/16 11:15 09/15/16 11:14 Ferrous Gluconate (Ferrous Gluconate Tab) 324 mg TIDM PO 08/16/16 17:45 09/15/16 17:44 08/16/16 18:16 324 MG Pantoprazole Sodium (Protonix Tab) 40 mg QAM PO 08/17/16 09:00 09/16/16 08:59 Silver Sulfadiazine (Silvadene 1% Crm 50GM Jar) 1 appln BID PRN EXT 08/16/16 11:15 09/15/16 11:14 Aspirin (Ecotrin Tab) 325 mg BID PO 08/16/16 21:00 09/15/16 20:59 08/16/16 21:16 325 MG Tramadol HCl (Ultram Tab) 1 tablet for pain rating... Q4H PRN PO 08/16/16 11:15 09/15/16 11:14 08/17/16 07:21 50 MG Baclofen (Lioresal Tab) 10 mg HS PRN PO 08/16/16 11:15 09/15/16 11:14 Fluticasone Propionate (Flonase Nasal [place]) 2 sprays DAILY PRN NOVA 08/16/16 11:15 09/15/16 11:14 Levothyroxine Sodium (Synthroid Tab) 75 mcg DAILYBB PO 08/17/16 06:00 09/16/16 05:59 08/17/16 06:17 75 MCG Losartan Potassium (coZAAR TAB) 50 mg DAILY PO 08/17/16 09:00 09/16/16 08:59 Metoprolol Succinate (Toprol Xl Tab) 25 mg QAM PO 08/17/16 09:00 09/16/16 08:59 Nitroglycerin (Nitrolingual [place]) 2 sprays Q1H PRN SL 08/16/16 11:15 09/15/16 11:14 Pioglitazone HCl (ACTos TAB) 45 mg QAM PO 08/17/16 09:00 09/16/16 08:59 Simvastatin (Zocor Tab) 40 mg QPM PO 08/16/16 21:00 09/15/16 20:59 08/16/16 21:16 40 MG Calcium/Vitamin D (Caltrate Plus Tab) 1 tab QAM PO 08/17/16 09:00 09/16/16 08:59 Hydromorphone HCl (Dilaudid Inj) 0.5 mg Q1H PRN IV 08/16/16 11:15 08/30/16 11:14 Glucose (Glucose 40% Gel) 15-30 GRAMS 15 GRAMS... UD PRN PO 08/16/16 11:15 5/11/17 11:14 Glucose (Glucose Chew Tab) 4-8 Tablets 4 Tabl... UD PRN PO 08/16/16 11:15 09/15/16 11:14 Dextrose (Dextrose 50% 50ML Syringe) 25-50ML OF 50% DW IV FOR... UD PRN IV 08/16/16 11:15 09/15/16 11:14 Glucagon (Glucagon Inj) 1 mg UD PRN SQ 08/16/16 11:15 09/15/16 11:14 Insulin Glargine (Lantus Solostar Pen) 2 unit BID SC 08/16/16 21:00 09/15/16 20:59 08/16/16 21:23 2 UNIT Oxybutynin Chloride (Ditropan Tab) 5 mg HS PO 08/16/16 21:00 09/15/16 20:59 08/16/16 21:32 5 MG Insulin Aspart (novoLOG ASPART) SLIDING SCALE G... ACHS SC 08/17/16 01:00 09/16/16 00:59 Miconazole Nitrate (Desenex Powder) 1 appln PRN PRN EXT 08/16/16 23:30 09/15/16 23:29 08/17/16 06:31 1 APPLJeramy (Mari Hansen PA-C) ATTENDING ADDENDUM care coordinated with TABATHA Hansen please refer to her notes for full details, I agree with her notes patient seen and examined, records reviewed by myself as well on exam, patient seen somewhat drowsy but easily rousable and oriented x 3 states she feels tired denies chest pain, dyspnea, dizziness, nausea no other symptoms VS noted and reviewed oriented x 3, not in distress, speaks in sentences with no effort nor accessory muscle use normal rate, regular rhythm, no murmurs clear breath sounds bilaterally non distended, soft, nontender no bipedal edema, erythema, warmth no neuro deficits Hg 8.6 Crea 1.4 ASSESSMENT/PLAN> ANEMIA - history of b12 deficiency - patient symptomatic 1 unit PRBC ordered HYPERTENSION - continue usual medications other diagnoses and plan of care as per TABATHA Hansen's notes Yehuda Nelson MD (Yehuda Nelson MD)
[2016-08-17 16:59] LABS: HEMATOCRIT 28.5 % (37-47)
[2016-08-17] MEDS: CLONIDINE HCL 0.1 MG TAB PO PRN (18:04)
[2016-08-17] MEDS ORDERED: ASPEC325 PO (20:18)
[2016-08-17] MEDS ORDERED: ACET-1138 PO (20:18)
[2016-08-17] MEDS ORDERED: ULT50X PO (20:18)
--- NOTE | 2016-08-17 20:22 | Discharge Instructions ---
Discharge Instructions Date of Service Aug 17, 2016. Admission Reason for Admission: Left Knee Degenerative Joint Disease Discharge Discharge Diagnosis / Problem: Left Knee Replacement Discharge Goals Goal(s): Decrease discomfort, Improve function, Increase independence, Improve disease control, Therapeutic intervention Activity Recommendations Activity Limitations: per Instructions/Follow-up section Weightbearing Status: Left weightbearing . Instructions / Follow-Up Instructions / Follow-Up ACTIVITY RECOMMENDATIONS: Physical Therapy: * You will go to physical therapy three times each week for four to six weeks after your surgery in order to regain your knee range of motion and to retrain your knee to work properly. * It is just as important to make sure you are getting your knee perfectly straight as it is to regain your knee bend. * Taking a pain pill an hour before therapy can help you have a more productive and comfortable therapy session. Home Exercise: * You were shown a series of exercises (heel props, heel slides, etc.) in the hospital. Do these exercises three to four times each day including the exercises you were shown in physical therapy. Walking: * Get up and walk several times each day. For the first four weeks, try not to stand or walk for more than one hour at a time. If you do stand or walk for more than one hour, you will not hurt anything, but your knee and leg will likely swell. * As you feel comfortable, you may change from the walker or crutches to a cane and then to independent walking. MEDICATIONS: New Medicine: * You will likely be taking one or more of these medications: 1. Tramadol - A quick and shorter-acting pain medication. Take one to two tablets every four to six hours to lessen your pain. 2. Iron Sulfate - Take three times each day for the month after surgery to help you replace the blood lost during surgery. 3. Aspirin - Thins your blood to lessen the chance of forming a blood clot. * The most common side effects of pain medicine and iron are nausea and constipation. If nausea or constipation is too much of a problem or if you have any questions about your new medicines or doses, call [facility] at [phone]. We will try to help you manage these issues. VERY IMPORTANT TO READ AND REVIEW" Pain: * The immediate post-operative period after knee replacement surgery is often quite painful. * You are given a prescription for pain medicine. You should take it, as directed, when you need it, especially before physical therapy and before going to bed. Pain that interferes with sleep is very common and can last several months. * You will likely need pain medicine for the first four to six weeks. It will not stop all of the pain. The pain will lessen and as you feel better, you may change to milder pain medicine such as Tylenol. * The most common side effects of pain medicine are nausea and constipation, so don't take more than you need. SPECIAL CARE INSTRUCTIONS: TEDs/Elastic Stockings: * The white elastic stockings help limit swelling and prevent blood clots from forming in your legs. The more you wear them, the more they work. * Wear them for six weeks after knee replacement surgery and four weeks after partial knee replacement. Prevention of Infection: * Take antibiotics one hour before any dental cleaning, dental work, urological procedure, gastrointestinal procedure or any invasive surgery in order to prevent your new joint from getting infected. * You may get the antibiotics from the doctor performing the procedure or you may call our office at before and we will call in a prescription to the pharmacy of your choice. Things to Watch For: * Drainage from the incision site that occurs more than one week after your surgery. * Severely increased knee/leg pain or swelling. * Increased redness at the incision site. * Fever above 102 degrees Fahrenheit. * Unusual chest pain or shortness of breath. * Unusual pain or burning with urination. Call [facility] at with any of the above problems or if you have any questions about your medicines or recovery. FOLLOW UP VISIT: Make an appointment to see your doctor for approximately two weeks after surgery for a progress check and staple removal by calling the office at . Current Hospital Diet Patient's current hospital diet: Diabetes Type 2 Diet Discharge Diet Recommended Diet: Diabetes Type 2 Diet Procedures Procedures Performed: Left Total Knee Arthroplasty Pending Studies Studies pending at discharge: no Laboratory Results Hemoglobin A1c Test 07/18/16 10:08 Range/Units Estimated Average Glucose 134 mg/dl Hemoglobin A1c 6.3 H 4.5-5.6 % Medical Emergencies . Who to Call and When: Medical Emergencies: If at any time you feel your situation is an emergency, please call 911 immediately. . Non-Emergent Contact Non-Emergency issues call your: Surgeon . "Provider Documentation" section prepared by Alberto Coronado. VTE Core Measure Inpt VTE Proph given/why not?: Other Anticoagulation, T.E.D. Alison, SCD's
[2016-08-17] MEDS: SIMVASTATIN 40 MG TAB PO SCH (20:58)
[2016-08-17] MEDS: OXYBUTYNIN CHLORIDE 5 MG TAB PO SCH (20:58)
[2016-08-18] MEDS: SODIUM CHLORIDE 0.9% 1000ML 1,000 ML IV SCH ×2 (00:24→12:09)
[2016-08-18] MEDS: CHECK SCOPOLAMINE PATCH PLACEMENT SCH (00:25)
[2016-08-18] MEDS: ACETAMINOPHEN 500 MG TAB PO SCH ×2 (01:32→09:34)
[2016-08-18 03:30] VITALS: BP 165/74; PULSE 76; TEMP 37; O2SAT 96
[2016-08-18] MEDS: CLONIDINE HCL 0.1 MG TAB PO PRN (03:50)
[2016-08-18 05:15] LABS: HEMATOCRIT 28.6 % (37-47)
[2016-08-18] MEDS: LEVOTHYROXINE 75 MCG TAB PO SCH (05:49)
[2016-08-18 05:59] LABS: BUN/CREATININE RATIO 15.4 (10-20); CALCIUM 7.9 mg/dl (8.5-10.1); CREATININE 1.3 mg/dl (0.60-1.20); POTASSIUM 4.6 mmol/L (3.5-5.1)
[2016-08-18 06:13] VITALS: BP 152/75
[2016-08-18 07:17] VITALS: BP 151/69; PULSE 68; TEMP 36.6; O2SAT 92
--- NOTE | 2016-08-18 07:29 | PROGRESS NOTE ---
DATE: 08/18/2016 SUBJECTIVE: 81-year-old white female postop day 2 from a left knee replacement. She is doing pretty well. Moderate amount of pain. Denies any chest pain or shortness of breath. Not feeling dizzy or lightheaded. OBJECTIVE: VITAL SIGNS: Temperature 37.0. Vital signs stable. PHYSICAL EXAMINATION: GENERAL: Reveals a healthy pleasant elderly female. She is lying in bed and looks reasonably comfortable. She is awake, alert and oriented. EXTREMITIES: Examination of left leg reveals the leg to be well aligned. Dressing is clean, dry and intact. She can dorsiflex and plantarflex her foot appropriately. She is neurologically intact. LABORATORY DATA: Hemoglobin 9.5, hematocrit 28.6. Electrolytes are stable. Creatinine is slightly improved at 1.30, which is about baseline. ASSESSMENT: 81-year-old white female postop day 2 from left knee replacement, doing pretty well. Some pain which is to be expected. She is anemic, but asymptomatic. PLAN: 1. DVT prophylaxis including thigh-high TEDs, SCDs, and aspirin twice a day. 2. PT/OT. Weight bear as tolerated. Left total knee protocol. 3. Pain control, doing reasonably well with current pain regimen. 4. Disposition: Plan to discharge to home with home health later today.
[2016-08-18] MEDS: TRAMADOL HCL 50 MG TAB PO PRN ×2 (07:36→12:37)
[2016-08-18] MEDS: PANTOprazole SOD 40 MG TAB PO SCH (09:04)
[2016-08-18] MEDS: DOCUSATE SODIUM 100 MG CAP PO SCH (09:04)
[2016-08-18] MEDS: MULTIVITAMIN TAB PO SCH (09:04)
[2016-08-18] MEDS: ASPIRIN 325 MG ECTAB PO SCH (09:04)
[2016-08-18] MEDS: FERROUS GLUCONATE 324 MG TAB PO SCH ×2 (09:04→12:44)
[2016-08-18] MEDS: METOPROLOL SUCC 25MG EXT REL TAB PO SCH (09:04)
[2016-08-18] MEDS: LOSARTAN POTASSIUM 50 MG TAB PO SCH (09:05)
[2016-08-18] MEDS: INSULIN GLARGINE SOLOSTAR 100 UNITS/ML 3 ML PEN SC SCH (09:11)
[2016-08-18] MEDS: INSULIN ASPART 100 UNITS/ML 3 ML PEN SC SCH ×2 (09:11→12:47)
[2016-08-18] MEDS: CALCIUM 600MG + VIT D 400 IU TAB PO SCH (09:31)
[2016-08-18 10:22] VITALS: BP 151/69; PULSE 68; TEMP 36.6; O2SAT 92
[2016-08-18] MEDS ORDERED: DOCUSATE SODIUM/SENNA 50/8.6MG TAB PO ONE (12:15)
--- NOTE | 2016-08-18 12:24 | Progress Note ---
Medicine Progress Note Date & Time of Visit: Aug 18, 2016 at 11:31. (Mari Hansen PA-C) Subjective Patient seen and examined sitting in bedside chair. Yesterday afternoon she developed generalized weakness and lethargy. She was transfused 1 unit of blood after that and states weakness has improved. She appears alert today. She tolerated breakfast without issues. Left knee pain is controlled currently. PT saw her yesterday and will see her again prior to discharge today. Denies dizziness, chest pain, SOB, nausea, vomiting. States she is voiding normally. No BM yet after surgery but did pass flatus yesterday. (Mari Hansen PA-C) Objective Last 8 Hrs Date Time Temp Pulse Resp B/P Pulse Ox O2 Delivery O2 Flow Rate FiO2 08/18/16 10:22 36.6 68 16 92 Room Air 08/18/16 07:30 Room Air 08/18/16 07:17 36.6 68 16 151/69 92 Nasal Cannula 2.0 08/18/16 06:13 152/75 Physical Exam: General-pleasant alert elderly female, sitting on bedside chair, no distress Eyes-anicteric ENT-hearing grossly intact Neck-trachea midline Lungs-CTA bilaterally, no wheezes, crackles, rhonchi, no respiratory distress Heart-RRR, no murmur Abdomen-soft , nontender, normal bowel sounds Extremities- left knee dressing in place Neuro- alert, oriented x 3, affect normal Laboratory Results: Last 24 Hours Test 08/17/16 12:00 08/17/16 16:54 08/17/16 17:27 08/17/16 20:37 Bedside Glucose 183 mg/dl 208 mg/dl 207 mg/dl Hemoglobin 9.2 g/dL Hematocrit 28.5 % Test 08/18/16 04:55 08/18/16 08:30 Hemoglobin 9.5 g/dL Hematocrit 28.6 % Sodium Level 138 mmol/L Potassium Level 4.6 mmol/L Chloride Level 107 mmol/L Carbon Dioxide Level 28 mmol/L Anion Gap 3.0 mmol/L Blood Urea Nitrogen 20 mg/dl Creatinine 1.30 mg/dl Est Creatinine Clear Calc Drug Dose 40.3 ml/min Estimated GFR () 45.2 Estimated GFR (Non- 39.0 BUN/Creatinine Ratio 15.4 Random Glucose 175 mg/dl Calcium Level 7.9 mg/dl Bedside Glucose 182 mg/dl (Mari Hansen, PAAlexxC) Assessment & Plan S/P LEFT TKA POD #[address] Coronado Pain control, wound care, activity per ortho Bowel regimen- changed Colace to Senokot S daily; continue PRN dulcolax suppository, PRN milk of magnesia Continue incentive spirometry PT/ OT CHRONIC ANEMIA From B12 deficiency and CKD EBL from surgery 50 mL Hg remained in 8s-9's postop Was symptomatic yesterday with generalized weakness -> received transfusion 1 unit pRBC Hg improved to 9.7 this am and symptom improved HYPERTENSION BP moderately elevated likely secondary to pain Continue metoprolol and losartan PRN clonidine added CKD STAGE III Baseline creat 1.3-1.6 Creat remains stable- 1.3 today Avoid nephrotoxins including NSAIDs Monitor renal function DM TYPE 2 Controlled, recent A1c =6.3 Hold home oral diabetic medications and novolog 70/30 On basal Lantus and Novolog sliding scale BSG's in 200s last night -> improved to 100s today SLEEP APNEA Continue CPAP GERD On ranitidine at home PPI during hospitalization HYPOTHYROIDISM Continue levothyroxine VTE PROPHYLAXIS Per ortho DISPOSITION Per ortho- to be DC today after PT Thank you for this consultation. We will follow the patient with you during their hospital stay. You can reach a member of the [facility] Hospitalist Team 28/11 via pager @ . Patient seen in collaboration with Dr. Nelson. Please see his addendum. Current Inpatient Medications: Current Inpatient Medications Medications (Trade) Dose Ordered Sig/Lizy Route Start Time Stop Time Status Last Admin Dose Admin Miscellaneous 1 ea 1 ea Q72H N/A 08/19/16 06:00 08/19/16 06:01 Sodium Chloride (Nss 1000ml) 1,000 ml @ 75 mls/hr [id number] IV 08/16/16 14:30 08/18/16 00:24 75 MLS/HR Miscellaneous Medication (No Nsaids) 1 ea UD N/A 08/16/16 11:15 09/15/16 11:14 Acetaminophen (Tylenol Tab) 1,000 mg Q8H PO 08/16/16 18:00 09/15/16 17:59 08/18/16 09:34 1,000 MG Magnesium Hydroxide (Milk Of Magnesia Susp) 30 ml Q6H PRN PO 08/16/16 11:15 09/15/16 11:14 Bisacodyl (Dulcolax Supp) 10 mg DAILY PRN [place] 08/16/16 11:15 09/15/16 11:14 Docusate Sodium (coLACE CAP) 100 mg BID PO 08/16/16 21:00 09/15/16 20:59 08/18/16 09:04 100 MG Diphenhydramine HCl (Benadryl Cap) 25 mg Q8H PRN PO 08/16/16 11:15 09/15/16 11:14 Diphenhydramine HCl (Benadryl Inj) 25 mg Q8H PRN IV 08/16/16 11:15 09/15/16 11:14 Al Hydrox/Mg Hydrox/Simethicone (Maalox Max Susp) 15 ml Q4H PRN PO 08/16/16 11:15 09/15/16 11:14 Zolpidem Tartrate (Ambien Tab) 5 mg HSZ PRN PO 08/16/16 11:15 09/15/16 11:14 Multivitamins (Multivitamin Tab) 1 tab QAM PO 08/17/16 09:00 09/16/16 08:59 08/18/16 09:04 1 TAB Ondansetron HCl (Zofran Inj) 4 mg Q6H PRN IV 08/16/16 11:15 09/15/16 11:14 08/17/16 07:25 4 MG Metoclopramide HCl (Reglan Inj) 10 mg Q6H PRN IV 08/16/16 11:15 09/15/16 11:14 Ferrous Gluconate (Ferrous Gluconate Tab) 324 mg TIDM PO 08/16/16 17:45 09/15/16 17:44 08/18/16 09:04 324 MG Pantoprazole Sodium (Protonix Tab) 40 mg QAM PO 08/17/16 09:00 09/16/16 08:59 08/18/16 09:04 40 MG Silver Sulfadiazine (Silvadene 1% Crm 50GM Jar) 1 appln BID PRN EXT 08/16/16 11:15 09/15/16 11:14 Aspirin (Ecotrin Tab) 325 mg BID PO 08/16/16 21:00 09/15/16 20:59 08/18/16 09:04 325 MG Tramadol HCl (Ultram Tab) 1 tablet for pain rating... Q4H PRN PO 08/16/16 11:15 09/15/16 11:14 08/18/16 07:36 100 MG Baclofen (Lioresal Tab) 10 mg HS PRN PO 08/16/16 11:15 09/15/16 11:14 Fluticasone Propionate (Flonase Nasal [place]) 2 sprays DAILY PRN NOVA 08/16/16 11:15 09/15/16 11:14 Levothyroxine Sodium (Synthroid Tab) 75 mcg DAILYBB PO 08/17/16 06:00 09/16/16 05:59 08/18/16 05:49 75 MCG Losartan Potassium (coZAAR TAB) 50 mg DAILY PO 08/17/16 09:00 09/16/16 08:59 08/18/16 09:05 50 MG Metoprolol Succinate (Toprol Xl Tab) 25 mg QAM PO 08/17/16 09:00 09/16/16 08:59 08/18/16 09:04 25 MG Nitroglycerin (Nitrolingual [place]) 2 sprays Q1H PRN SL 08/16/16 11:15 09/15/16 11:14 Simvastatin (Zocor Tab) 40 mg QPM PO 08/16/16 21:00 09/15/16 20:59 08/17/16 20:58 40 MG Calcium/Vitamin D (Caltrate Plus Tab) 1 tab QAM PO 08/17/16 09:00 09/16/16 08:59 08/18/16 09:31 1 TAB Hydromorphone HCl (Dilaudid Inj) 0.5 mg Q1H PRN IV 08/16/16 11:15 08/30/16 11:14 Glucose (Glucose 40% Gel) 15-30 GRAMS 15 GRAMS... UD PRN PO 08/16/16 11:15 09/15/16 11:14 Glucose (Glucose Chew Tab) 4-8 Tablets 4 Tabl... UD PRN PO 08/16/16 11:15 09/15/16 11:14 Dextrose (Dextrose 50% 50ML Syringe) 25-50ML OF 50% DW IV FOR... UD PRN IV 08/16/16 11:15 09/15/16 11:14 Glucagon (Glucagon Inj) 1 mg UD PRN SQ 08/16/16 11:15 09/15/16 11:14 Insulin Glargine (Lantus Solostar Pen) 2 unit BID SC 08/16/16 21:00 09/15/16 20:59 08/18/16 09:11 2 UNIT Oxybutynin Chloride (Ditropan Tab) 5 mg HS PO 08/16/16 21:00 09/15/16 20:59 08/17/16 20:58 5 MG Insulin Aspart (novoLOG ASPART) SLIDING SCALE G... ACHS SC 08/17/16 01:00 09/16/16 00:59 08/18/16 09:11 2 UNITS Miconazole Nitrate (Desenex Powder) 1 appln PRN PRN EXT 08/16/16 23:30 09/15/16 23:29 08/17/16 06:31 1 APPLN Clonidine HCl (Catapres Tab) 0.1 mg Q6H PRN PO 08/17/16 16:45 09/16/16 16:44 08/18/16 03:50 0.1 MG (Mari Hansen PA-C) ATTENDING ADDENDUM care coordinated with TABATHA Hansen please refer to her notes for full details, I agree with her notes patient seen and examined, records reviewed by myself as well on exam, patient seen resting in chair, comfortable, alert states she feels much better denies weakness, chest pain, dyspnea, dizziness no other symptoms VS noted and reviewed oriented x 3 , not in distress, speaks in sentences with no effort nor accessory muscle use normal rate, regular rhythm, no murmurs clear breath sounds b/l non distended, soft, nontender no bipedal edema, erythema, warmth no neuro deficits Hg 9.5 Crea 1.3 ASSESSMENT/PLAN> ANEMIA - Hg improved symptoms improved outpatient ff up scheduled for next week with PCP HYPERTENSION - continue other diagnoses and plan of care as per TABATHA Hansen's notes Yehuda Nelson MD (Yehuda Nelson MD)
[2016-08-18 14:18] VITALS: BP 150/83; PULSE 62; O2SAT 94
[2016-08-19] MEDS ORDERED: DOCUSATE SODIUM/SENNA 50/8.6MG TAB PO SCH (09:00)
--- NOTE | 2016-08-24 15:24 | DISCHARGE SUMMARY ---
ADMITTING PHYSICIAN AND SURGEON: Dr. Coronado. ADMITTING DIAGNOSIS: Left knee degenerative joint disease. SURGERY PERFORMED: Left total knee arthroplasty. SECONDARY DIAGNOSES: Diabetes, hypothyroidism, obesity, sleep apnea, gastroesophageal reflux disease, hiatal hernia, skin cancer stage III, renal insufficiency, and pernicious anemia. CONSULTS: Dr. Bryson, postoperative medical management. HISTORY AND PHYSICAL EXAMINATION: Well documented in the patient's chart. HOSPITAL COURSE: The patient was admitted on 08/16/2016 underwent total knee arthroplasty, tolerated the procedure well. There were no complications. She was transferred to the PACU postoperatively and later to the orthopedic floor for further care. She was given Ancef for antibiotic prophylaxis, DEBORAH stockings, SCDs and aspirin for DVT prophylaxis. Hemoglobin, hematocrit and vital signs were monitored throughout her hospital stay and remained stable. She did develop some postoperative anemia with hemoglobin down to 8.6. She was transfused 1 unit of packed red blood cells. There were no complications during her hospital stay. By postoperative day 2, she was tolerating a diabetic diet. Pain was controlled with oral pain medicine. She was participating in physical therapy and had no signs or symptoms of deep vein thrombosis. On postop day 2, she was discharged home in good condition, set up with home health services. She was given printed discharge instructions including prescriptions for extra strength Tylenol, aspirin 325 mg b.i.d., and tramadol. Continue her home medications with the exception of her home dose of Tylenol, aspirin and tramadol, which were changed. Continue physical therapy, weightbearing as tolerated. DEBORAH stockings. Follow up in 10-12 days or sooner if there are any problems or concerns.
[2017-02-08] MEDS ORDERED: ASPI81TA28 PO (09:56)
[2017-02-08] MEDS ORDERED: CALC500T83 PO (09:56)
[2017-02-08] MEDS ORDERED: OMEG10007 PO (09:56)
[2017-02-08] MEDS ORDERED: EPGI10M SQ (09:58)
[2017-02-08] MEDS ORDERED: ZNTT/150 PO (10:02)
== END 2016-08-18 14:34 | disposition home health service (06) | DRG 470 ==
LOC: ENRESERVTM → ENRESERVDT → C.ACU 06:38 → C.3E 07:10
PROVIDERS: ADMIT Orthopaedic Surgery Sports Medicine; ATTEND Orthopaedic Surgery Sports Medicine
PROC: 0SRD0J9 Replacement of Left Knee Joint with Synthetic Substitute, Cemented, Open Approach (ICD-10-PCS; principal; 2016-08-16 09:25)
DX: M17.12 Unilateral primary osteoarthritis, left knee (principal); E11.22 Type 2 diabetes mellitus with diabetic chronic kidney disease; N18.3 Chronic kidney disease, stage 3 (moderate); E03.9 Hypothyroidism, unspecified; E66.9 Obesity, unspecified; Z68.35 Body mass index [BMI] 35.0-35.9, adult; G47.30 Sleep apnea, unspecified; K21.9 Gastro-esophageal reflux disease without esophagitis; Z79.4 Long term (current) use of insulin; D64.9 Anemia, unspecified; Z79.82 Long term (current) use of aspirin; Z83.3 Family history of diabetes mellitus; I10 Essential (primary) hypertension; E53.8 Deficiency of other specified B group vitamins; F17.200 Nicotine dependence, unspecified, uncomplicated; Z87.891 Personal history of nicotine dependence

== ENCOUNTER → 2017-01-10 | Outpatient (CLI) | payer OTHER ==
[~2017-01-10] MED LIST changes: +ACET-1138 PO; -ACET1TAB84 PO; -ACETAMINOPHEN 500 MG TAB PO SCH; +ASPEC325 PO; -ASPI-435 PO; +ASPI81TA28 PO; -BUPIVACAINE 0.25% 30 ML VIAL ONE; -BUPIVACAINE 0.5 % 5 MG/1 ML PF 10ML VIAL ONE; -BUPIVACAINE LIPOSOME 266 MG, BUPIVACAINE/EPINEPHRINE INJ 50 ML, SODIUM CHLORIDE 0.9% PF... INFIL SCH; +CALC500T83 PO; -CEFAZOLIN 2000 MG/60 ML D5W 60 ML IV SCH; +EPGI10M SQ; -FAMOTIDINE 20 MG TAB PO SCH; -FERR1TAB62 PO; +FERR325T PO; -GABAPENTIN 300 MG CAP PO SCH; -LACTATED RINGER'S 1000ML 1,000 ML IV SCH; -LACTATED RINGER'S 1000ML IV SCH; -METOCLOPRAMIDE HCL 10 MG TAB PO SCH; -SCOPOLAMINE 1.5 MG TDSY TD SCH; -TRAM-10 PO; -TRANEXAMIC ACID INJ 1,000 MG in SODIUM CHLORIDE 0.9% 100ML 100 ML IV SCH; +ULT50X PO; +ZNTT/150 PO
--- NOTE | 2017-01-10 16:43 | MAMMOGRAPHY REPORT ---
BILATERAL DIGITAL SCREENING MAMMOGRAM WITH CAD: 01/10/2017 CLINICAL HISTORY: Routine screening. Patient has no complaints. TECHNIQUE: Bilateral CC, MLO and repeat left MLO views were obtained. Current study was also evaluat ed with a Computer Aided Detection (CAD) system. COMPARISON: Comparison is made to exams dated: 01/07/2016 mammogram, 01/05/2015 mammogram, 01/15/2014 ma mmogram, 01/02/2014 mammogram, 06/18/2012 mammogram, and 06/15/2011 mammogram - [facility]. BREAST COMPOSITION: There are scattered areas of fibroglandular density in both breasts. FINDINGS: There are asymmetries in the medial, middle one third of the left breast on the CC view. Although they could represent normal overlapping tissue, additional full field CC view with the nippl e in profile, and spot compression tomosynthesis views with possible ultrasound are recommended. There are diffuse bilateral benign-appearing round and coarse calcifications. No other suspicious mas s, architectural distortion or cluster of microcalcifications is seen. IMPRESSION: ACR BI-RADS CATEGORY 0: INCOMPLETE EVALUATION: NEED ADDITIONAL IMAGING EVALUATION The asymmetries in the medial left breast need additional evaluation. The patient will be called to schedule an appointment. Approximately 10% of breast cancers are not detected with mammography. A negative mammographic report should not delay biopsy if a clinically suggestive mass is present. Cinthia Werner M.D. ay/:01/10/2017 15:04:19 Volunteer Services Supervisor: Lea NEELY(Gia)([place])([place]), [facility] letter sent: Addl Imaging 0 BI-RADS Code: ACR BI-RADS Category 0: Incomplete Evaluation: Need Additional Imaging Evaluation
== END | disposition home or self-care (01) ==
LOC: C.MAMM 09:57
PROVIDERS: ATTEND Family Medicine
DX: Z12.31 Encounter for screening mammogram for malignant neoplasm of breast (principal); N64.89 Other specified disorders of breast

== ENCOUNTER → 2017-01-13 | Outpatient (CLI) | payer OTHER ==
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
== END | disposition home or self-care (01) ==
LOC: C.MAMM 09:38
PROVIDERS: ATTEND Family Medicine
DX: N64.59 Other signs and symptoms in breast (principal)

== ENCOUNTER 2017-03-02 06:03 | Inpatient (IN) | payer OTHER ==
[2017-02-08 09:58] VITALS: BMI 33.0
--- NOTE | 2017-02-08 10:22 | PAT Medication Instructions ---
Service Date Feb 08, 2017. Current Home Medication List Acetaminophen (Tylenol Extra Strength), 1,000 MG PO Q8H Alendronate Sodium (Fosamax), 70 MG PO WK Aspirin (Aspirin Ec), 81 MG PO HS B-Complex Vitamins (Vitamin B Complex), 1 TAB PO NOON Biotin (Biotin), 2,500 MCG PO QAM Calcium (Calcium), 1 TAB PO QAM Epoetin Darci (Procrit), 1 DOSE SQ MONTHLY Ferrous Sulfate (Ferrous Sulfate), 1 TAB PO NOON Fish Oil ([place]-3), 1 CAP PO noon Glipizide (Glipizide Xl), 2.5 MG PO BID Insulin Aspart Protamine & Asp (Novolog Mix 70/30), 3 UNITS SC BIDM Levothyroxine Sodium (Synthroid), 75 MCG PO QAM Losartan Potassium (Cozaar), 50 MG PO noon Probiotic Product (Probiotic), 1 TAB PO QAM Ranitidine (Zantac), 150 MG PO HS Simvastatin (Zocor), 40 MG PO QPM Medication Instructions For Your Scheduled Surgery - Hold the following medications 2 weeks prior to surgery: NAT RED ([place]-3), 1 CAP PO noon Biotin (Biotin), 2,500 MCG PO QAM - Continue as directed: Epoetin Darci (Procrit), 1 DOSE SQ MONTHLY - Hold the following medications the morning of surgery: Alendronate Sodium (Fosamax), 70 MG PO WK B-Complex Vitamins (Vitamin B Complex), 1 TAB PO NOON Calcium (Calcium), 1 TAB PO QAM Ferrous Sulfate (Ferrous Sulfate), 1 TAB PO NOON Glipizide (Glipizide Xl), 2.5 MG PO BID Losartan Potassium (Cozaar), 50 MG PO noon Probiotic Product (Probiotic), 1 TAB PO QAM - Take the following medications the morning of surgery with a sip of water OTHERWISE NOTHING TO EAT OR DRINK AFTER MIDNIGHT: Levothyroxine Sodium (Synthroid), 75 MCG PO QAM - For Insulin Dependent Diabetic patients: Test blood sugar A.M. of surgery. - If Blood Sugar is GREATER THAN 150, take HALF of your regular dose of: Insulin Aspart Protamine & Asp (Novolog Mix 70/30) - If Blood Sugar is LESS THAN 150, do not take any: Insulin Aspart Protamine & Asp (Novolog Mix 70/30) - Take the following medications as scheduled the night before surgery: Aspirin (Aspirin Ec), 81 MG PO HS Insulin Aspart Protamine & Asp (Novolog Mix 70/30), 3 UNITS SC BIDM Acetaminophen (Tylenol Extra Strength), 1,000 MG PO Q8H (may take if needed up to 4 hours prior to surgery) Ranitidine (Zantac), 150 MG PO HS Simvastatin (Zocor), 40 MG PO QPM Glipizide (Glipizide Xl), 2.5 MG PO BID If you have any questions please call us at [phone] or [phone] or [phone]
--- NOTE | 2017-02-08 11:04 | DIAGNOSTIC IMAGING REPORT ---
CHEST PREADMISSION(PA/LAT) CLINICAL HISTORY: 81 years-old Female presenting with preoperative assessment. TECHNIQUE: PA and lateral views of the chest were obtained. COMPARISON: 10/19/2015. FINDINGS: Atherosclerosis of aortic arch. Cardiac silhouette top normal in size. Lungs and pleural spaces clear. Degenerative changes of the thoracic spine. Post traumatic changes of the right humeral neck. Cholecystectomy clips noted. IMPRESSION: 1. No acute cardiopulmonary disease. Electronically signed by: Milton Ryan M.D. 02/08/2017 11:03 AM Dictated Date/Time: 02/08/2017 11:02 AM
[2017-02-08 11:11] LABS: BASO % 0.6 %; BASO ABS # 0.04 K/uL (0-0.2); COMPLETE YES; EOS % 2.3 %; HEMATOCRIT 35.2 % (37-47); IG% 0.1 %; MEAN CELL VOLUME 91.4 fL (80-100); MEAN CORPUSCULAR HEMOGLOBIN 28.6 pg (25-34); MEAN CORPUSCULAR HGB CONC 31.3 g/dl (32-36); MEAN PLATELET VOLUME 9.9 fL (7.4-10.4); MONO % 6.7 %; NEUT % 67.3 %; PLATELET COUNT 228 K/uL (130-400); RED BLOOD COUNT 3.85 M/uL (4.2-5.4); WHITE BLOOD COUNT 6.97 K/uL (4.8-10.8)
[2017-02-08 11:22] LABS: PROTHROMBIN TIME (PATIENT) 10.6 SECONDS (9.0-12.0)
[2017-02-08 11:23] LABS: BUN/CREATININE RATIO 19.2 (10-20); CALCIUM 9.4 mg/dl (8.5-10.1); CREATININE 1.2 mg/dl (0.60-1.20); POTASSIUM 4.7 mmol/L (3.5-5.1)
--- NOTE | 2017-02-25 21:37 | HISTORY & PHYSICAL EXAMINATION ---
DATE OF ADMISSION: 03/02/2017 CHIEF COMPLAINT: Right knee pain and discomfort. HISTORY OF PRESENT ILLNESS: The patient is a 81-year-old female who is now about 6 plus months out from left knee replacement, presents for surgical treatment of her right knee. She has a long history of right knee pain and discomfort. She described a global pain in her knee. Very temporary response to injection. The more she walks, the more it hurts. She is limited by knee pain. Very happy with the left knee and would like to have right knee replaced. Of note, the patient does have a history of chronic anemia and we used the OrthoPAT system last time. She was given Procrit injections, but the insurance quit paying for that. She would like to proceed with surgery on her right knee. PAST MEDICAL HISTORY: 1. Diabetes. 2. Hypothyroidism. 3. Obesity with a BMI of 34. 4. Sleep apnea. 5. Gastroesophageal reflux disease. 6. Hiatal hernia. 7. Skin cancer. PAST SURGICAL HISTORY: Include; 1. Appendectomy. 2. Cholecystectomy. 3. Left total knee replacement in August 16, 2016. ALLERGIES: None. CURRENT MEDICINES: Include; 1. Procrit which has been discontinued. 2. Ranitidine 300 mg at bedtime. 3. Levothyroxine 75 mcg a day. 4. Losartan 50 mg a day. 5. Fosamax. 6. Phenergan. 7. Glipizide 2.5 mg - 30 minutes before each meal. 8. Actos 40 mg a day. 9. NovoLog insulin. 10. Oxybutynin 5 mg. 11. Calcium with vitamin D. 12. Aspirin 81 mg a day. SOCIAL HISTORY: The patient is a 81-year-old female patient. She is from [place]. FAMILY HISTORY: Significant for diabetes. REVIEW OF SYSTEMS: Significant for diabetes. Denies any chest pain. No shortness of breath. No history of DVT or PE. She does have chronic anemia. PHYSICAL EXAMINATION: GENERAL: Pleasant elderly female who looks to be in pretty good health. HEENT: Benign. NECK: Supple. No lymphadenopathy. LUNGS: Clear to auscultation. HEART: Regular rate and rhythm. ABDOMEN: Soft, nontender, nondistended. EXTREMITIES: Grossly neurovascularly intact except as follows. Examination of the right knee reveals the patient ambulates independently. She has got moderate sized knee effusion. Varus alignment to her knee. Range of motion is 5-120. She has no clinical instability. No pain with hip motion. Examination of the left knee reveals well-healed incision. Range of motion 0-125 Good straight leg raise. X-RAYS: X-rays of the right knee reviewed. It shows advanced right knee DJD. She has complete loss of medial joint space. A little bit of tibiofemoral subluxation. Osteophytes in the anterior medial compartment. ASSESSMENT: A 81-year-old female now 6 months out from a left knee replacement with advanced right knee degenerative joint disease. She would like to have her right knee replaced. The patient is diabetic and has some underlying chronic anemia. PLAN: We are going to take her to the operating room and do right total knee replacement. The risks and benefits of this procedure were explained to the patient including but not limited to DVT, PE, , infection, neurological injury, vascular injury, bleeding problem, pain, limited range of motion, stiffness, failure to get complete relief of symptoms, need for further surgery in the future, fracture, leg length inequality, nerve palsy, need for blood transfusion, etc. The patient understands and desires to proceed. Informed consent was obtained. We will use OrthoPAT system again. She knows she is at risk for bleeding and needing transfusions. As far as discharge plans, she is planning to be discharged to home with health program. HENRIETTA
[~2017-03-02] VITALS: Ht 165.1 cm; Wt 91.2 kg
[2017-03-02] VITALS (8 sets, daily range): BP systolic 116–158; BP diastolic 58–96; PULSE 49–69; TEMP 35.8–36.6; O2SAT 93–100; Ht 165.1 cm; Wt 91.2 kg
[~2017-03-02 06:03] MED LIST changes: +ACETAMINOPHEN 500 MG TAB PO SCH; -ACT/45 PO; -ASPEC325 PO; -BACL1TAB PO; +BUPIVACAINE LIPOSOME 266 MG, BUPIVACAINE/EPINEPHRINE INJ 50 ML, SODIUM CHLORIDE 0.9% PF... INFIL SCH; -CALCTAB5 PO; +CEFAZOLIN 2000MG IV PUSH 10 ML IV SCH; -EPGI20M SC; +FAMOTIDINE 20 MG TAB PO SCH; +FERR1TAB62 PO; -FERR325T PO; -FLUT0.0529 NAE; +GABAPENTIN 300 MG CAP PO SCH; +LACTATED RINGER'S 1000ML 1,000 ML IV SCH; +LACTATED RINGER'S 1000ML 500 ML IV ONE; +LACTATED RINGER'S 1000ML IV SCH; -METO25TA3 PO; +METOCLOPRAMIDE HCL 10 MG TAB PO SCH; -NITRSPR6; -OXYBUTYNIN PO; +SCOPOLAMINE 1.5 MG TDSY TD SCH; +TRANEXAMIC ACID INJ 1,000 MG in SODIUM CHLORIDE 0.9% 100ML 100 ML IV SCH; -ULT50X PO
[2017-03-02] MEDS ORDERED: BUPIVACAINE 0.5 % 5 MG/1 ML PF 10ML VIAL ONE (06:40)
[2017-03-02] MEDS ORDERED: BUPIVACAINE 0.25% 30 ML VIAL ONE (06:40)
[2017-03-02] MEDS ORDERED: FENTANYL CITRATE INJ 50 MCG/1 ML 2 ML VIAL ONE (06:41)
[2017-03-02] MEDS ORDERED: MIDAZOLAM HCL 1 MG/ML 2ML VIAL ONE (06:41)
[2017-03-02] MEDS ORDERED: EpINEphrine INJ 1MG/ML AMP 1 MG/ML AMP ONE (06:41)
[2017-03-02] MEDS ORDERED: PROPOFOL IV EMULSION 10 MG/ML 20 ML VIAL IV ONE (06:42)
[2017-03-02] MEDS ORDERED: LIDOCAINE HCL 2% 2 ML VIAL (20MG/ML) ONE (06:42)
[2017-03-02] MEDS ORDERED: ONDANSETRON INJ 2 MG/ML 2 ML VIAL ONE (06:42)
[2017-03-02] MEDS ORDERED: LABETALOL HCL IV 5 MG/ML 20ML IV PRN (08:15)
[2017-03-02] MEDS ORDERED: HYDROmorphone INJ 2 MG/ML SYR/VIAL IV PRN (08:15)
[2017-03-02] MEDS ORDERED: ATROPINE SULFATE 0.1 MG/ML 5ML SYR IV PRN (08:15)
[2017-03-02] MEDS ORDERED: FLUMAZENIL 0.1 MG/1 ML 10 ML VIAL IV PRN (08:15)
[2017-03-02] MEDS ORDERED: ONDANSETRON INJ 2 MG/ML 2 ML VIAL IV PRN ×2 (08:15→11:15)
[2017-03-02] MEDS ORDERED: PHENYLEPHRINE 100MCG/ML 5ML SYR IV PRN (08:15)
[2017-03-02] MEDS ORDERED: FENTANYL CITRATE INJ 50 MCG/1 ML 2 ML VIAL IV PRN (08:15)
[2017-03-02] MEDS ORDERED: NALOXONE HCL 0.4 MG/1 ML VIAL/CARP IV PRN (08:15)
[2017-03-02] MEDS ORDERED: MEPERIDINE HCL 25 MG/ML CARP IV PRN (08:15)
[2017-03-02] MEDS ORDERED: EpHEDrine SULFATE INJ 50 MG/ML AMP IV PRN (08:15)
[2017-03-02] MEDS ORDERED: BACITRACIN 50000 UNIT VIAL ONE (08:36)
[2017-03-02] MEDS ORDERED: BUPIVACAINE LIPOSOME 1/3% 266 MG/20 ML VIAL INFIL ONE (08:36)
[2017-03-02] MEDS ORDERED: SODIUM CHLORIDE 0.9% PF 50 ML VIAL ONE (08:36)
[2017-03-02] MEDS ORDERED: BUPIVACAINE/EPINEPHRINE 0.25% 1:200,000 30 ML VIAL ONE (08:36)
--- NOTE | 2017-03-02 11:04 | [facility] Post Operative Brief Note ---
Immediate Operative Summary Operative Date Mar 02, 2017. Pre-Operative Diagnosis Advanced right knee degenerative joint disease Post-Operative Diagnosis Advanced right knee degenerative joint disease Procedure(s) Performed Right total knee arthroplasty, cemented Surgeon Dr. [employer] T[employer] Surgeon(s) Caleb España PA-C Estimated Blood Loss 10 mL Findings Right Knee DJD Fluids (cc crystalloids) 1000 cc Specimens A: Right knee bone and tissue Drains HMV to ORthoPAT Anesthesia Spinal Complication(s) None Disposition Recovery Room / PACU
[2017-03-02] MEDS ORDERED: MAGNESIUM HYDROXIDE SUSP 30 ML UDC PO PRN (11:15)
[2017-03-02] MEDS ORDERED: GLUCOSE 40% GEL 15 GM TUBE PO PRN (11:15)
[2017-03-02] MEDS ORDERED: ZOLPIDEM TARTRATE 5 MG TAB PO PRN (11:15)
[2017-03-02] MEDS ORDERED: SILVER SULFADIAZINE 1% CR 50 GM JAR EXT PRN (11:15)
[2017-03-02] MEDS ORDERED: BISACODYL 10 MG SUPP PR PRN (11:15)
[2017-03-02] MEDS ORDERED: DEXTROSE 50% 50 ML SYR IV PRN (11:15)
[2017-03-02] MEDS ORDERED: ALUMINUM/MAGNESIUM/SIMETH (MAALOX MAX) 30 ML UDC PO PRN (11:15)
[2017-03-02] MEDS ORDERED: METOCLOPRAMIDE HCL INJ 5 MG/ML 2 ML VIAL IV PRN (11:15)
[2017-03-02] MEDS ORDERED: GLUCOSE 10 TABS/TUBE PO PRN (11:15)
[2017-03-02] MEDS ORDERED: GLUCAGON FOR INJ 1 MG VIAL SQ PRN (11:15)
--- NOTE | 2017-03-02 11:48 | DIAGNOSTIC IMAGING REPORT ---
TWO VIEWS RIGHT KNEE CLINICAL HISTORY: Postoperative examination. FINDINGS: AP and crosstable lateral portable views of the right knee are obtained. A right knee arthroplasty is in near anatomic alignment. There has been undersurface remodeling of the patella. No acute fracture is seen. There are expected postoperative changes around the knee including skin clips, a surgical drain, soft tissue edema, and subcutaneous gas. IMPRESSION: Expected postoperative changes status post right knee arthroplasty. No acute fracture is seen. Electronically signed by: Garry Vang M.D. 03/02/2017 11:46 AM Dictated Date/Time: 03/02/2017 11:46 AM
--- NOTE | 2017-03-02 12:07 | OPERATIVE REPORT ---
DATE OF OPERATION: 03/02/2017 SURGEON: Alberto Coronado MD TACK WELDER: TABATHA Yancey PREOPERATIVE DIAGNOSIS: Right knee degenerative joint disease. POSTOPERATIVE DIAGNOSIS: Same. PROCEDURE PERFORMED: Right cemented posterior stabilized total knee arthroplasty. COMPLICATIONS: None. ESTIMATED BLOOD LOSS: Minimal. TOURNIQUET TIME: 75 minutes at 300 mmHg. ANESTHESIA: Spinal with adductor canal block. DRAINS: Hemovac drain hooked up to the OrthoPAT system. SPECIMENS: Right knee sent for pathology. OPERATIVE INDICATIONS: The patient is a 81-year-old female who has had a long history of bilateral knee pain and discomfort. She has been through extensive conservative care without adequate relief. She underwent a left knee replacement 6+ month ago and has done well from that. She has had similar findings on her right knee and elected to proceed with right total knee arthroplasty. Of note, the patient does have a history of chronic anemia. She was on erythropoietin, but her insurance stopped paying for that. Therefore, we used OrthoPAT system to try and conserve blood. OPERATIVE FINDINGS: Operative findings revealed advanced right knee DJD. She had extensive grade 4 changes in the medial femoral condyle and medial tibial plateau with eburnation of the medial femoral condyle and medial tibial plateau. She had a varus deformity to her knee. Moderate size joint effusion. OPERATIVE IMPLANTS: Operative implants consisted of: 1. Biomet Vanguard size 62.5 right posterior stabilized femoral component. 2. Biomet size 71 tibial tray. 3. A 10-mm posterior stabilized polyethylene insert. 4. A 31 x 8 all poly patella. OPERATIVE PROCEDURE: The patient was taken to the operating room, identified and placed on the operating table in the supine position. All contact areas were appropriately padded. IV antibiotics were provided by anesthesia team. A spinal anesthetic and adductor canal block had been provided in the holding area. Loco catheter was placed in sterile fashion. Right thigh tourniquet was then placed and the right lower extremity was then prepped and draped in the usual sterile fashion. The right leg was elevated and exsanguinated with Esmarch and tourniquet was placed at 300 mmHg. An anterior approach to the right knee was then performed through a longitudinal incision centered over the patella. Sharp dissection was carried through the subcutaneous tissues down to the level of the extensor mechanism. Medial parapatellar arthrotomy incision was made. Some subperiosteal dissection was carried out medially. The fat pad was resected from beneath the patellar tendon. The lateral patellofemoral ligament was released. The patella was everted and the knee was flexed. The osteophytes were taken off the distal femur. The ACL and PCL were then released from the distal femur and the tibia subluxated anteriorly. The external tibial alignment jig was then placed in the anterior face of the tibia and adjusted 16 mm medially. Proximal tibia cut was made to remove about a millimeter of bone from the most deficient aspect of the medial tibial plateau. Some osteophytes were taken off medial and posteromedially. Tibia size was size 71. Attention was then drawn to the femur. The distal femur was entered with a sharp drill. Intramedullary canal was suctioned. A right 5-degree valgus cutting guide was placed. Distal femoral cutting block was pinned in place. Distal femoral cut was made to take an additional 3 mm of bone off the distal femur. The femur was then sized to a size 62.5. We did downsize this almost an entire size. The AP cutting block was pinned parallel to the epicondylar axis, which was 4 degrees of external rotation. The anterior cut, anterior chamfer, posterior cut, and posterior chamfer cuts were made. Box cutting guide was placed and adjusted slightly laterally and the box cut was made. The knee was flexed. The remnants of the medial and lateral meniscus were excised. The osteophytes were taken off the posterior aspect of the femur. Trial femoral component was placed. Tibial tray was pinned in maximum external rotation and the drill and stem punch were used to create defect in proximal tibia for the tibial tray. The knee was then trialed and the 10-mm insert fit most appropriately. Attention was drawn to the patella. The patella was cleaned of all soft tissues. Patellar thickness measured almost 24 mm in thickness and it was cut down to 14. It was sized to a size 31 patella. Lug holes were drilled for the 31 patella. Lateral osteophyte was removed. Patella button was placed. Knee was taken through range of motion and the patella tracked nicely with no thumbs test. Attention was then drawn toward placement of permanent components. All trial components were removed. A bone plug was placed in the distal femur to limit blood loss. We actually placed 2 plugs. A double batch of Palacos G cement was mixed. A right size 62.5 posterior stabilized femoral component, size 71 tibial tray, a 10-mm posterior stabilized polyethylene insert, and a 31 x 8 all poly patella were then cemented in place. Knee was brought out into full extension until cement hardened. A final cement check was then performed. Pericapsular tissues were injected with 100 mL of a combination of 20 mL of Exparel, 30 mL of normal saline, and 50 mL of 0.25% Marcaine with epinephrine. The patient did receive 1 gram of tranexamic acid. The wound was once again irrigated. I then placed 2 Hemovac drains in the knee joint. The extensor mechanism was then closed with a combination of #1 PDS suture and #1 Vicryl suture in a [id number] fashion. Extensor mechanism was checked and found to be intact. The subcutaneous tissues were then closed with 2-0 Dexon suture in a buried interrupted fashion. Skin was closed skin thao. Leg was then cleaned and dried and a sterile dressing of Xeroform, 4 x 4, sterile cast padding and Neville bandage were applied. The tourniquet was then let down for final tourniquet time of 75 minutes. The drain was hooked up to the OrthoPAT system. The patient then transferred to the recovery room in stable condition. The patient tolerated the procedure well with no complications. All needle and sponge counts were correct at the end of the operation. I attest to the content of the Intraoperative Record and any orders documented therein. Any exception s are noted below.
[2017-03-02] MEDS: ACETAMINOPHEN 500 MG TAB PO SCH ×2 (14:00→20:58)
--- NOTE | 2017-03-02 14:15 | Anesthesiology Progress Note ---
Anesthesia Post Op Note Date & Time Mar 02, 2017 at 14:15 Vital Signs Pain Intensity: 0.0 Vital Signs Past 12 Hours Date Time Temp Pulse Resp B/P (MAP) Pulse Ox O2 Delivery O2 Flow Rate FiO2 03/02/17 13:30 36.3 54 16 137/74 (95) 99 Nasal Cannula 2.0 03/02/17 13:00 36.3 58 17 131/72 (91) 98 Nasal Cannula 2.0 03/02/17 12:37 35.8 49 18 117/58 (77) 100 Nasal Cannula 1.0 03/02/17 12:00 100 Nasal Cannula 3.0 03/02/17 12:00 100 Nasal Cannula 3.0 03/02/17 12:00 36.5 58 18 121/68 (85) 100 Nasal Cannula 3.0 03/02/17 11:40 59 16 120/65 94 Room Air 03/02/17 11:25 56 16 108/43 95 Room Air 03/02/17 11:15 58 14 117/48 100 Oxymask 4 03/02/17 11:07 36.2 60 14 114/70 100 Oxymask 4 03/02/17 06:50 36.5 63 20 153/96 94 Room Air Notes Mental Status: alert / awake / arousable, participated in evaluation Pt Amnestic to Procedure: Yes Nausea / Vomiting: adequately controlled Pain: adequately controlled Airway Patency, RR, SpO2: stable & adequate BP & HR: stable & adequate Hydration State: stable & adequate Neuraxial Anesthesia: was administered, sensory block is resolving Anesthetic Complications: no major complications apparent
[2017-03-02] MEDS: SODIUM CHLORIDE 0.9% 1000ML 1,000 ML IV SCH ×2 (14:31→23:50)
[2017-03-02] MEDS: CHECK SCOPOLAMINE PATCH PLACEMENT SCH ×2 (15:52→23:51)
[2017-03-02] MEDS: TRAMADOL HCL 50 MG TAB PO PRN (15:52)
[2017-03-02] MEDS: HYDROmorphone INJ 0.5 MG/0.5 ML SYR IV PRN (17:38)
[2017-03-02] MEDS: INSULIN HUMAN REGULAR SC SCH ×2 (18:20→20:57)
[2017-03-02] MEDS: INSULIN 70% ASPART PROTAMINE/30% ASPART SC SCH (18:21)
[2017-03-02] MEDS: FERROUS GLUCONATE 324 MG TAB PO SCH (18:22)
[2017-03-02] MEDS: KETOROLAC TROMETHAMINE 15 MG/ML VIAL IV. SCH ×2 (18:22→23:50)
[2017-03-02] MEDS: CEFAZOLIN IV 2,000 MG in SYRINGE 0 ML IV SCH (18:23)
--- NOTE | 2017-03-02 18:25 | PROGRESS NOTE ---
DATE: 03/02/2017 SUBJECTIVE: A 81-year-old white female postop from a right knee replacement. She is doing well. No significant pain yet. No chest pain or shortness of breath. Not feeling dizzy or lightheaded. OBJECTIVE: VITAL SIGNS: Temperature 36.3. Vital signs stable. GENERAL: Reveals a pleasant elderly female. She is lying in bed, looks pretty comfortable. LUNGS: Clear to auscultation. HEART: Regular rate and rhythm. ABDOMEN: Soft, nontender, nondistended. EXTREMITIES: Grossly neurovascularly intact except as follows: Examination of the right leg reveals the leg to be well aligned. She can dorsiflex and plantarflex her foot appropriately. She is neurologically intact. X-RAYS: X-rays of the right knee from recovery room were reviewed. It shows a right cemented posterior stabilized total knee arthroplasty. Components to be in good position. No signs of problems. ASSESSMENT: A 81-year-old white female postop from a right knee replacement, doing well. Pain is controlled. She is neurologically intact. PLAN: 1. DVT prophylaxis including thigh-high TEDs, SCDs, and aspirin twice a day. 2. PT/OT. Weightbearing as tolerated. Right total knee protocol. 3. Pain control, doing well with current pain regimen. We will have to limit narcotic use to avoid confusion. 4. IV antibiotics x24 hours. 5. Disposition: Plan to discharge to home with some home health likely once adequately recovered.
[2017-03-02] MEDS: ASPIRIN 325 MG ECTAB PO SCH (20:54)
[2017-03-02] MEDS: SENNA 8.6 MG TAB PO SCH (20:54)
[2017-03-02] MEDS: DOCUSATE SODIUM 100 MG CAP PO SCH (20:54)
[2017-03-02] MEDS: RANITIDINE HCL 150 MG TAB PO SCH (20:54)
[2017-03-02] MEDS: SIMVASTATIN 40 MG TAB PO SCH (20:55)
[2017-03-02] MEDS ORDERED: TRANEXAMIC ACID INJ 1,000 MG in SODIUM CHLORIDE 0.9% 100ML 100 ML IV SCH (23:00)
[2017-03-03] VITALS (8 sets, daily range): BP systolic 110–169; BP diastolic 62–82; PULSE 57–79; TEMP 36.3–37.3; O2SAT 91–92
[2017-03-03] MEDS: CEFAZOLIN IV 2,000 MG in SYRINGE 0 ML IV SCH (01:44)
[2017-03-03] MEDS: KETOROLAC TROMETHAMINE 15 MG/ML VIAL IV. SCH (06:09)
[2017-03-03] MEDS: LEVOTHYROXINE 75 MCG TAB PO SCH (06:10)
[2017-03-03] MEDS: ACETAMINOPHEN 500 MG TAB PO SCH ×3 (06:10→21:12)
[2017-03-03 06:37] LABS: HEMATOCRIT 29.4 % (37-47); MEAN CELL VOLUME 93.6 fL (80-100); MEAN CORPUSCULAR HEMOGLOBIN 29.3 pg (25-34); MEAN CORPUSCULAR HGB CONC 31.3 g/dl (32-36); MEAN PLATELET VOLUME 9.3 fL (7.4-10.4); PLATELET COUNT 181 K/uL (130-400); RED BLOOD COUNT 3.14 M/uL (4.2-5.4); WHITE BLOOD COUNT 6.96 K/uL (4.8-10.8)
[2017-03-03 07:06] LABS: CREATININE 1.66 mg/dl (0.60-1.20); POTASSIUM 4.5 mmol/L (3.5-5.1)
[2017-03-03] MEDS: INSULIN HUMAN REGULAR SC SCH ×4 (08:00→21:18)
[2017-03-03] MEDS: CHECK SCOPOLAMINE PATCH PLACEMENT SCH ×2 (08:14→16:12)
--- NOTE | 2017-03-03 08:16 | PROGRESS NOTE ---
DATE: 03/03/2017 DATE: 03/03/2017 SUBJECTIVE: A 81-year-old white female postop day 1 from right knee replacement. She is doing pretty well. Some pain but manageable. Denies any chest pain or shortness of breath. Not feeling dizzy or lightheaded. OBJECTIVE: VITAL SIGNS: Temperature 36.3. Vital signs stable. PHYSICAL EXAMINATION: GENERAL: Reveals a pleasant elderly female. She is lying in bed, looks pretty comfortable. EXTREMITIES: Examination of the right leg reveals the dressing to be clean, dry and intact. Leg is well aligned. She can dorsiflex and plantarflex her foot appropriately. She is neurologically intact. LABORATORY DATA: Hemoglobin 9.2. Hematocrit 29.4. Electrolytes are stable. Creatinine just slightly elevated at 1.66. ASSESSMENT: A 81-year-old white female postop day 1 from right knee replacement, doing pretty well. She does have chronic anemia. She is currently asymptomatic. We have her on iron supplementation. Creatinine is slightly elevated and will stop her Toradol. PLAN: 1. DVT prophylaxis including thigh-high TEDs, SCDs, and aspirin twice a day. 2. PT/OT. Weightbearing as tolerated. Right total knee protocol. 3. Pain control. Doing pretty well with current pain regimen. We are going to stop her Toradol due to her increased creatinine. 4. Anemia. Currently asymptomatic. We will follow her H&H. Continue iron supplementation. 5. Elevated renal function. We will stop her Toradol and recheck her creatinine in the morning. 6. Disposition. She is hoping to be discharged home with some health once medically stable and recovered.
[2017-03-03] MEDS: CALCIUM 600MG + VIT D 400 IU TAB PO SCH (08:19)
[2017-03-03] MEDS: DOCUSATE SODIUM 100 MG CAP PO SCH ×2 (08:19→21:11)
[2017-03-03] MEDS: ASPIRIN 325 MG ECTAB PO SCH ×2 (08:19→21:11)
[2017-03-03] MEDS: FERROUS GLUCONATE 324 MG TAB PO SCH ×3 (08:19→17:44)
[2017-03-03] MEDS: LOSARTAN POTASSIUM 50 MG TAB PO SCH (08:19)
[2017-03-03] MEDS: PANTOprazole SOD 40 MG TAB PO SCH (08:19)
[2017-03-03] MEDS: MULTIVITAMIN TAB PO SCH (08:19)
[2017-03-03] MEDS: LACTOBACILLUS ACIDOPHILUS (FLORANEX) TAB PO SCH (08:20)
[2017-03-03] MEDS: TRAMADOL HCL 50 MG TAB PO PRN ×3 (08:20→19:08)
[2017-03-03] MEDS: INSULIN 70% ASPART PROTAMINE/30% ASPART SC SCH ×2 (08:22→17:47)
[2017-03-03] MEDS ORDERED: NON-FORMULARY MEDICATION (Biotin 2,500 MCG) PO SCH (09:00)
[2017-03-03] MEDS: SODIUM CHLORIDE 0.9% 1000ML 1,000 ML IV SCH (10:16)
--- NOTE | 2017-03-03 10:35 | Clinical Documentation Query ---
CLINICAL DOCUMENTATION QUERY A 81 yo female s/p right total knee arthroplasty and hx of CKD 3: In your clinical opinion is this patient being managed for: ( ) Acute kidney failure ( x ) Not Agree (X ) Other explanation of clinical findings (Please Explain) Chronic Kidney disease made worse with NSAID. ( ) Unable to determine (Please Define) ( ) Need to Discuss The medical record reflects the following clinical findings, treatment, and risk factors. Clinical Indicators: Creatinine 1.66 from 1.20 baseline, GFR 29 from 43 baseline Treatment: IV hydration, I&O, serial PRP's Risk Factors: Age, s/p surgical intervention, CKD 3 Please clarify and document your clinical opinion in the progress notes and discharge summary. Terms such as "probable", "suspected", "likely", "questionable", "possible", or "still to be ruled out" are acceptable. IF IN AGREEMENT, YOU MUST DOCUMENT ABOVE DIAGNOSTIC STATEMENT IN DAILY PROGRESS NOTES AND DISCHARGE SUMMARY. This document is not part of the patient's record. Thank You, Deborah Juarez RN [phone]
[2017-03-03] MEDS ORDERED: NURSING VERBAL MED ORDER ONE ×2 (10:45)
[2017-03-03] MEDS ORDERED: VITAMIN B COMPLEX TAB PO SCH (12:00)
[2017-03-03] MEDS: RANITIDINE HCL 150 MG TAB PO SCH (21:11)
[2017-03-03] MEDS: SENNA 8.6 MG TAB PO SCH (21:11)
[2017-03-03] MEDS: SIMVASTATIN 40 MG TAB PO SCH (21:11)
[2017-03-04] MEDS: CHECK SCOPOLAMINE PATCH PLACEMENT SCH ×2 (00:22→08:30)
[2017-03-04] MEDS: TRAMADOL HCL 50 MG TAB PO PRN ×2 (00:55→07:21)
[2017-03-04 04:12] VITALS: BP 177/81; PULSE 82
[2017-03-04] MEDS: HYDROmorphone INJ 0.5 MG/0.5 ML SYR IV PRN (04:27)
[2017-03-04] MEDS: LEVOTHYROXINE 75 MCG TAB PO SCH (06:16)
[2017-03-04] MEDS: ACETAMINOPHEN 500 MG TAB PO SCH (06:16)
[2017-03-04 06:20] VITALS: BP 179/71; PULSE 73
[2017-03-04 06:35] LABS: HEMATOCRIT 28.5 % (37-47)
[2017-03-04] MEDS: LOSARTAN POTASSIUM 50 MG TAB PO SCH (06:58)
[2017-03-04 07:05] LABS: BUN/CREATININE RATIO 16.7 (10-20); CALCIUM 8.1 mg/dl (8.5-10.1); CREATININE 1.17 mg/dl (0.60-1.20); POTASSIUM 4.6 mmol/L (3.5-5.1)
[2017-03-04 07:13] VITALS: BP 162/61; PULSE 82; TEMP 36.9; O2SAT 95
[2017-03-04] MEDS ORDERED: KETOROLAC TROMETHAMINE 15 MG/ML VIAL IV. PRN (08:15)
[2017-03-04] MEDS ORDERED: ULT50X PO (08:17)
[2017-03-04] MEDS ORDERED: ASPEC325 PO (08:17)
[2017-03-04] MEDS ORDERED: ACET-24 PO (08:17)
[2017-03-04] MEDS ORDERED: FRRG PO (08:17)
--- NOTE | 2017-03-04 08:21 | PROGRESS NOTE ---
DATE: 03/04/2017 SUBJECTIVE: A 81-year-old white female postop day 2 from right knee placement. Pretty rough night pain nicole. Doing a little bit better this morning. Denies any chest pain or shortness of breath. Not feeling dizzy or lightheaded. OBJECTIVE: VITAL SIGNS: Temperature 36.9. Vital signs stable. GENERAL: Reveals is a pleasant elderly female. She is lying in bed, looks reasonably comfortable. EXTREMITIES: Examination of the right leg reveals the leg to be well aligned but there is just a slight bit of drainage on the inferior aspect of the wound. Her calf is soft and supple. She is neurologically intact. LABORATORY DATA: Hemoglobin 9.0, hematocrit 28.5. Electrolytes are stable with creatinine improved at 1.17. ASSESSMENT: A 81-year-old white female postop day 2 from right knee replacement doing pretty well. We will give her a little bit of Toradol which will help. PLAN: 1. DVT prophylaxis including thigh-high TEDs, SCDs, and aspirin twice a day. 2. PT/OT. Weightbearing as tolerated. Right total knee protocol. 3. Pain control, doing okay with current pain regimen. We will see if we can adjust some things to make things a little more comfortable for her. 4. Disposition: She is planning to be discharged home with some home health later today if doing okay. HENRIETTA
[2017-03-04] MEDS: LACTOBACILLUS ACIDOPHILUS (FLORANEX) TAB PO SCH (08:28)
[2017-03-04] MEDS: DOCUSATE SODIUM 100 MG CAP PO SCH (08:28)
[2017-03-04] MEDS: PANTOprazole SOD 40 MG TAB PO SCH (08:29)
[2017-03-04] MEDS: CALCIUM 600MG + VIT D 400 IU TAB PO SCH (08:29)
[2017-03-04] MEDS: MULTIVITAMIN TAB PO SCH (08:29)
[2017-03-04] MEDS: ASPIRIN 325 MG ECTAB PO SCH (08:29)
[2017-03-04] MEDS: FERROUS GLUCONATE 324 MG TAB PO SCH (08:29)
[2017-03-04] MEDS: INSULIN 70% ASPART PROTAMINE/30% ASPART SC SCH (08:35)
[2017-03-04] MEDS: INSULIN HUMAN REGULAR SC SCH (08:36)
[2017-03-04 09:00] VITALS: BP 172/82; PULSE 75; TEMP 36.9; O2SAT 95
--- NOTE | 2017-03-04 09:17 | Discharge Instructions ---
Discharge Instructions Date of Service Mar 04, 2017. Admission Reason for Admission: Right Knee Degenerative Joint Disease Discharge Discharge Diagnosis / Problem: Right Knee Replacement Discharge Goals Goal(s): Decrease discomfort, Improve function, Increase independence, Improve disease control, Therapeutic intervention Activity Recommendations Activity Limitations: per Instructions/Follow-up section Weightbearing Status: Right weightbearing . Instructions / Follow-Up Instructions / Follow-Up ACTIVITY RECOMMENDATIONS: Physical Therapy: * You will go to physical therapy three times each week for four to six weeks after your surgery in order to regain your knee range of motion and to retrain your knee to work properly. * It is just as important to make sure you are getting your knee perfectly straight as it is to regain your knee bend. * Taking a pain pill an hour before therapy can help you have a more productive and comfortable therapy session. Home Exercise: * You were shown a series of exercises (heel props, heel slides, etc.) in the hospital. Do these exercises three to four times each day including the exercises you were shown in physical therapy. Walking: * Get up and walk several times each day. For the first four weeks, try not to stand or walk for more than one hour at a time. If you do stand or walk for more than one hour, you will not hurt anything, but your knee and leg will likely swell. * As you feel comfortable, you may change from the walker or crutches to a cane and then to independent walking. MEDICATIONS: New Medicine: * You will likely be taking one or more of these medications: 1. Tramadol - A quick and shorter-acting pain medication. Take one to two tablets every four to six hours to lessen your pain. 2. Iron Sulfate - Take three times each day for the month after surgery to help you replace the blood lost during surgery. 3. Aspirin - Thins your blood to lessen the chance of forming a blood clot. * The most common side effects of pain medicine and iron are nausea and constipation. If nausea or constipation is too much of a problem or if you have any questions about your new medicines or doses, call [facility] at . We will try to help you manage these issues. VERY IMPORTANT TO READ AND REVIEW" Pain: * The immediate post-operative period after knee replacement surgery is often quite painful. * You are given a prescription for pain medicine. You should take it, as directed, when you need it, especially before physical therapy and before going to bed. Pain that interferes with sleep is very common and can last several months. * You will likely need pain medicine for the first four to six weeks. It will not stop all of the pain. The pain will lessen and as you feel better, you may change to milder pain medicine such as Tylenol. * The most common side effects of pain medicine are nausea and constipation, so don't take more than you need. SPECIAL CARE INSTRUCTIONS: TEDs/Elastic Stockings: * The white elastic stockings help limit swelling and prevent blood clots from forming in your legs. The more you wear them, the more they work. * Wear them for six weeks after knee replacement surgery and four weeks after partial knee replacement. Prevention of Infection: * Take antibiotics one hour before any dental cleaning, dental work, urological procedure, gastrointestinal procedure or any invasive surgery in order to prevent your new joint from getting infected. * You may get the antibiotics from the doctor performing the procedure or you may call our office at before and we will call in a prescription to the pharmacy of your choice. Things to Watch For: * Drainage from the incision site that occurs more than one week after your surgery. * Severely increased knee/leg pain or swelling. * Increased redness at the incision site. * Fever above 102 degrees Fahrenheit. * Unusual chest pain or shortness of breath. * Unusual pain or burning with urination. Call [facility] at with any of the above problems or if you have any questions about your medicines or recovery. FOLLOW UP VISIT: Make an appointment to see your doctor for approximately two weeks after surgery for a progress check and staple removal by calling the office at . Current Hospital Diet Patient's current hospital diet: Diabetes Type 2 Diet Discharge Diet Recommended Diet: Diabetes Type 2 Diet Procedures Procedures Performed: Right total knee arthroplasty, cemented Pending Studies Studies pending at discharge: no Medical Emergencies . Who to Call and When: Medical Emergencies: If at any time you feel your situation is an emergency, please call [phone] immediately. . Non-Emergent Contact Non-Emergency issues call your: Surgeon . "Provider Documentation" section prepared by Alberto Coronado. . VTE Core Measure Inpt VTE Proph given/why not?: Other Anticoagulation, T.E.D. Stockings, SCD's
[2017-03-04 10:28] VITALS: BP 158/69; PULSE 76; O2SAT 94
--- NOTE | 2017-03-06 15:40 | DISCHARGE SUMMARY ---
ADMITTING PHYSICIAN AND SURGEON: Dr. Coronado. ADMITTING DIAGNOSIS: Right knee degenerative joint disease. SURGERY PERFORMED: Right total knee arthroplasty. SECONDARY DIAGNOSES: Diabetes, hypothyroidism, obesity, sleep apnea, gastroesophageal reflux disease, hiatal hernia, and skin cancer. CONSULTS: None obtained. HISTORY AND PHYSICAL EXAMINATION: Well documented in the patient's chart. HOSPITAL COURSE: The patient was admitted on 03/02/2017 and underwent total knee arthroplasty. She tolerated procedure well. There were no complications. She was transferred to the PACU postoperatively and later to the orthopedic floor for further care. She was given Ancef for antibiotic prophylaxis and DEBORAH stockings, SCDs and aspirin for DVT prophylaxis. Her hemoglobin, hematocrit and vital signs were monitored during her hospital stay and remained stable. She developed some postoperative anemia and did not require any blood transfusions. She did have an elevated creatinine, it was 1.66 and Toradol was discontinued. Her creatinine did decrease then to 1.17. There were no complications. By postoperative day #2, she was tolerating a diabetic diet. Pain was controlled with oral pain medicine. She was participating in physical therapy and had no signs or symptoms of deep vein thrombosis. On postoperative day #2, she was discharged home and set up with home health services. She was given printed discharge instructions including prescriptions for extra strength Tylenol, aspirin 325 mg b.i.d., iron supplement and tramadol. Continue her home medications with the exception of Tylenol and aspirin, which were changed. Continue physical therapy, weightbearing as tolerated, and DEBORAH stockings. Follow up in 10-12 days or sooner if there are any problems or concerns.
== END 2017-03-04 11:24 | disposition home health service (06) | DRG 470 ==
LOC: C.ACU 06:03 → C.3E 06:40 → UNDOADMIN 09:09 → ENRESERV 11:26 → CANBEDREQ 12:22
PROVIDERS: ADMIT Orthopaedic Surgery Sports Medicine; ATTEND Orthopaedic Surgery Sports Medicine
PROC: 0SRC0J9 Replacement of Right Knee Joint with Synthetic Substitute, Cemented, Open Approach (ICD-10-PCS; principal; 2017-03-02 09:10)
DX: M17.11 Unilateral primary osteoarthritis, right knee (principal); E11.9 Type 2 diabetes mellitus without complications; E03.9 Hypothyroidism, unspecified; E66.9 Obesity, unspecified; K21.9 Gastro-esophageal reflux disease without esophagitis; Z79.4 Long term (current) use of insulin; Z79.82 Long term (current) use of aspirin; Z79.899 Other long term (current) drug therapy; Z68.34 Body mass index [BMI] 34.0-34.9, adult; Z96.652 Presence of left artificial knee joint

== ENCOUNTER 2017-04-12 07:52 | Emergency (ER) | payer OTHER ==
[~2017-04-12] VITALS: Ht 165.1 cm; Wt 86.3 kg
[~2017-04-12 07:52] MED LIST changes: -ACET-1138 PO; +ACET-24 PO; -ACETAMINOPHEN 500 MG TAB PO SCH; +ASPEC325 PO; -ASPI81TA28 PO; -BUPIVACAINE LIPOSOME 266 MG, BUPIVACAINE/EPINEPHRINE INJ 50 ML, SODIUM CHLORIDE 0.9% PF... INFIL SCH; -CEFAZOLIN 2000MG IV PUSH 10 ML IV SCH; -FAMOTIDINE 20 MG TAB PO SCH; +FRRG PO; -GABAPENTIN 300 MG CAP PO SCH; -LACTATED RINGER'S 1000ML 1,000 ML IV SCH; -LACTATED RINGER'S 1000ML 500 ML IV ONE; -LACTATED RINGER'S 1000ML IV SCH; -METOCLOPRAMIDE HCL 10 MG TAB PO SCH; -SCOPOLAMINE 1.5 MG TDSY TD SCH; -TRANEXAMIC ACID INJ 1,000 MG in SODIUM CHLORIDE 0.9% 100ML 100 ML IV SCH; +ULT50X PO
[2017-04-12 07:58] VITALS: TEMP 36.4; Ht 165.1 cm; Wt 86.3 kg
--- NOTE | 2017-04-12 08:10 | EMERGENCY ROOM VISIT NOTE ---
ED Visit Note First contact with patient: 08:08 I have seen and examined this patient with Margaret chow and generally agree with the treatment plan as discussed. Problem List Medical Problems: (1) Anemia due to chronic kidney disease Status: Chronic (2) CKD (chronic kidney disease), stage III Status: Chronic (3) DM type 2 (diabetes mellitus, type 2) Status: Chronic (4) Dyslipidemia Status: Chronic (5) GERD (gastroesophageal reflux disease) Status: Chronic (6) Hypothyroidism Status: Chronic (7) DORIS on CPAP Status: Chronic (8) Pernicious anemia Status: Chronic Surgical Problems: (1) History of appendectomy Status: Chronic (2) History of dilation and curettage Status: Chronic (3) S/P cholecystectomy Status: Chronic Current/Historical Medications Scheduled Acetaminophen (Sb Non-Aspirin Extra Stre), 1,000 MG PO Q8 Alendronate Sodium (Fosamax), 70 MG PO WK Aspirin (Aspirin), 325 MG PO BID B-Complex Vitamins (Vitamin B Complex), 1 TAB PO NOON Biotin (Biotin), 2,500 MCG PO QAM Calcium (Calcium), 1 TAB PO QAM Epoetin Darci (Procrit), 1 DOSE SQ Q3 weeks Ferrous Gluconate (Ferrous Gluconate), 324 MG PO BIDM Ferrous Sulfate (Ferrous Sulfate), 1 TAB PO NOON Fish Oil (Walnut-3), 1 CAP PO noon Glipizide (Glipizide Xl), 2.5 MG PO BID Insulin Aspart Protamine & Asp (Novolog Mix 70/30), 3 UNITS SC BIDM Levothyroxine Sodium (Synthroid), 75 MCG PO QAM Losartan Potassium (Cozaar), 50 MG PO noon Probiotic Product (Probiotic), 1 TAB PO QAM Ranitidine (Zantac), 150 MG PO HS Simvastatin (Zocor), 40 MG PO QPM Scheduled PRN Tramadol HCl (Tramadol HCl), 50-100 MG PO Q6H PRN for Pain Allergies Coded Allergies: Ciprofloxacin (Verified Allergy, Mild, RASH, 03/02/17) Metformin (Verified Adverse Reaction, Intermediate, GI SYMPTOMS, 03/02/17) BENEDICT Inhibitors (Verified Adverse Reaction, Unknown, COUGH, 03/02/17) Vital Signs Date Time Temp Pulse Resp B/P (MAP) Pulse Ox O2 Delivery O2 Flow Rate FiO2 04/12/17 07:58 36.4 85 20 157/84 96 Room Air Departure Information Referrals [place] M.D.([facility]) (PCP) Patient Instructions [facility]
[2017-04-12] MEDS ORDERED: SODIUM CHLORIDE 0.9% 1000ML 1,000 ML IV STA (08:16)
[2017-04-12] MEDS ORDERED: ONDANSETRON INJ 2 MG/ML 2 ML VIAL IV STA (08:16)
[2017-04-12] MEDS ORDERED: KRIL1CAP18 PO (08:29)
[2017-04-12 08:48] LABS: BASO % 0.3 %; BASO ABS # 0.02 K/uL (0-0.2); COMPLETE YES; EOS % 1.4 %; HEMATOCRIT 31.1 % (37-47); IG% 0.3 %; LYMPH % 14.5 %; LYMPH ABS # 1.12 K/uL (1.2-3.4); MEAN CELL VOLUME 93.1 fL (80-100); MEAN CORPUSCULAR HEMOGLOBIN 29.6 pg (25-34); MEAN CORPUSCULAR HGB CONC 31.8 g/dl (32-36); MONO % 7.8 %; NEUT % 75.7 %; PLATELET COUNT 185 K/uL (130-400); RED BLOOD COUNT 3.34 M/uL (4.2-5.4); WHITE BLOOD COUNT 7.73 K/uL (4.8-10.8)
[2017-04-12 09:25] LABS: ALKALINE PHOSPHATASE 47 U/L (45-117); ALT/SGPT 31 U/L (12-78); AST/SGOT 18 U/L (15-37); BLOOD UREA NITROGEN 32 mg/dl (7-18); BUN/CREATININE RATIO 26.9 (10-20); CARBON DIOXIDE 22 mmol/L (21-32); CHLORIDE 110 mmol/L (98-107); GLUCOSE 151 mg/dl (70-99); POTASSIUM 4.6 mmol/L (3.5-5.1); SODIUM 140 mmol/L (136-145)
--- NOTE | 2017-04-12 09:25 | DIAGNOSTIC IMAGING REPORT ---
ABDOMEN 2VIEW W/PA CHEST RTN CLINICAL HISTORY: vomiting COMPARISON STUDY: Chest x-ray dated 02/08/2017 FINDINGS: The erect chest reveals no free intraperitoneal air. There is no focal pulmonary consolidation. Erect and supine views the abdomen reveal no abnormally dilated loops of large or small bowel. There are no transition zones indicate bowel obstruction. There are surgical clips in the right upper quadrant consistent with a prior cholecystectomy. Left upper quadrant small bowel loops are at the upper limits of normal in size measuring 28 mm uncorrected for magnification. IMPRESSION: No evidence of bowel obstruction. No evidence of free air. Electronically signed by: Carlos Eduardo Johnson M.D. 04/12/2017 9:23 AM Dictated Date/Time: 04/12/2017 9:22 AM
[2017-04-12] MEDS ORDERED: OPTIRAY 320 IV PRN (09:45)
--- NOTE | 2017-04-12 10:21 | DIAGNOSTIC IMAGING REPORT ---
CT ABD/PELVIS IV CONTRAST ONLY CLINICAL HISTORY: Nausea and vomiting. COMPARISON STUDY: 12/09/2015 TECHNIQUE: Following the IV administration of 93 mL of Optiray-320, CT scan of the abdomen and pelvis was performed from the lung bases to the proximal femurs. Images are reviewed in the axial, sagittal, and coronal planes. IV contrast was administered without complication. A dose lowering technique was utilized adhering to the principles of ALARA. CT DOSE: 700.02 mGy.cm FINDINGS: Lower chest: The heart is normal in size and configuration, without pericardial effusion. The lung bases and pleural spaces are clear. Liver: The contrast-enhanced liver is normal in size, contour, and attenuation. There is no intrahepatic biliary ductal dilatation. The hepatic veins and portal veins are patent. Gallbladder: Surgically absent Spleen: Normal in size and attenuation. Pancreas: Unremarkable. Adrenal glands: Unremarkable. Kidneys: There is a 19 mm right renal cyst. There is a 1 cm lower pole left renal cyst. There is an extrarenal pelvis on the right. There is no significant hydronephrosis. Bowel: There are no transition zones indicate bowel obstruction. There is colonic diverticulosis. There are no acute peridiverticular inflammatory changes. There are no findings to indicate acute appendicitis. Peritoneum: There is no intraperitoneal free air or abdominal ascites. There is a small fat-containing umbilical hernia. Vasculature: The abdominal aorta is normal in course and caliber. Adenopathy: None. Pelvic viscera: The bladder, and pelvic viscera are unremarkable. Skeletal structures: No destructive osseous lesions are seen. There is SI joint sclerosis. IMPRESSION: 1. No evidence of bowel obstruction. No evidence of free air 2. Diverticulosis. No evidence of acute diverticulitis 3. No evidence of acute appendicitis Electronically signed by: Carlos Eduardo Johnson M.D. 04/12/2017 10:20 AM Dictated Date/Time: 04/12/2017 10:12 AM
[2017-04-12 10:42] LABS: URINE APPEARANCE CLOUDY (CLEAR); URINE BILIRUBIN NEG (NEG); URINE COLOR YELLOW; URINE NITRITE NEG (NEG); URINE SPECIFIC GRAVITY 1.023 (1.000-1.030); UROBILINOGEN NEG (NEG); ZZUR CULT IF INDIC CLEAN CATCH NO
[2017-04-12 10:48] LABS: MANUAL MICROSCOPIC REQUIRED? NO; REVIEW REQ? NO
--- NOTE | 2017-04-12 11:02 | EMERGENCY ROOM VISIT NOTE ---
History First contact with patient: 08:08 Chief Complaint: VOMITING Stated Complaint: FOOD POISIONING History of Present Illness The patient is a 81 year old female who presents to the Emergency Room with complaints of nausea/vomiting that started last night around 8 PM. Patient states that she ate out for dinner last night, about an hour or so after she began to feel nauseated and started to vomit shortly thereafter. She states she has vomited 6 or 7 times and has not been able to keep anything down. She denies any blood or bile in her vomit. She has not had any diarrhea or abdominal pain, denies any fevers but has had some chills. She has not tried any medications for her symptoms. She states now she is just dry heaving because she has nothing else to bring up. She denies any headaches, neck pain, vision changes, chest pain, shortness of breath, palpitations, dizziness or syncope, back pain, dysuria or urinary frequency, or rash. Review of Systems A complete 10 point review of systems was reviewed with the patient with pertinent positives and negatives as per history of present illness. All else were negative. 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 Surgical Problems: (1) History of appendectomy (2) History of dilation and curettage (3) S/P cholecystectomy Family History Cancer BROTHER Cervical cancer DAUGHTER Pancreatic cancer FATHER Social History Smoking Status: Never Smoker Alcohol Use: none Marital Status: Housing Status: lives with family Current/Historical Medications Scheduled Acetaminophen (Sb Non-Aspirin Extra Stre), 1,000 MG PO Q8 Alendronate Sodium (Fosamax), 70 MG PO WK B-Complex Vitamins (Vitamin B Complex), 1 TAB PO NOON Biotin (Biotin), 2,500 MCG PO QAM Calcium (Calcium), 1 TAB PO QAM Epoetin Darci (Procrit), 1 DOSE SQ Q3 weeks Ferrous Sulfate (Ferrous Sulfate), 1 TAB PO NOON Glipizide (Glipizide Xl), 2.5 MG PO BID Insulin Aspart Protamine & Asp (Novolog Mix 70/30), 3 UNITS SC BIDM Krill Oil ([place]-3 Krill Oil 500 mg), 500 MG PO DAILY Levothyroxine Sodium (Synthroid), 75 MCG PO QAM Losartan Potassium (Cozaar), 50 MG PO noon Ondasetron Odt (Zofran Odt), 4 MG SL Q6H Probiotic Product (Probiotic), 1 TAB PO QAM Ranitidine (Zantac), 150 MG PO HS Simvastatin (Zocor), 40 MG PO QPM Allergies Coded Allergies: Ciprofloxacin (Verified Allergy, Mild, RASH, 04/12/17) Metformin (Verified Adverse Reaction, Intermediate, GI SYMPTOMS, 04/12/17) BENEDICT Inhibitors (Verified Adverse Reaction, Unknown, COUGH, 04/12/17) Physical Exam Vital Signs Date Time Temp Pulse Resp B/P (MAP) Pulse Ox O2 Delivery O2 Flow Rate FiO2 04/12/17 13:10 78 18 161/79 96 Room Air 04/12/17 11:42 86 18 161/75 94 Room Air 04/12/17 09:50 85 19 174/70 96 Room Air 04/12/17 08:49 71 04/12/17 07:58 36.4 85 20 157/84 96 Room Air Physical Exam CONSTITUTIONAL: No acute distress, nontoxic appearing. Mildly dehydrated. Alert and oriented X 4 with normal affect. HEENT: Normocephalic, atraumatic. Pupils equal, round and reactive to light, EOMI. TMs normal. Pharynx normal. Tacky mucous membranes NECK: Supple, full active range of motion without discomfort. RESPIRATORY: Clear to auscultation bilaterally with no wheezing, crackles, rhonchi or stridor. Equal expansion bilaterally. CARDIOVASCULAR: Regular rate and rhythm with no murmurs, rubs or gallops. Normal peripheral perfusion. No edema. GASTROINTESTINAL: Soft, nontender, nondistended. No palpable masses or HSM. No rebound tenderness or guarding. Hyperactive bowel sounds present in all quadrants. MUSCULOSKELETAL: Full range of motion of all joints without discomfort. INTEGUMENTARY: No rash or other significant dermatologic conditions noted. NEUROLOGIC: Cranial nerves II-XII grossly intact. No focal neurologic deficits noted. Normal strength and sensation bilaterally, normal speech, normal gait. Medical Decision & Procedures ER Provider Diagnostic Interpretation: ABDOMEN 2VIEW W/PA CHEST RTN CLINICAL HISTORY: vomiting COMPARISON STUDY: Chest x-ray dated 02/08/2017 FINDINGS: The erect chest reveals no free intraperitoneal air. There is no focal pulmonary consolidation. Erect and supine views the abdomen reveal no abnormally dilated loops of large or small bowel. There are no transition zones indicate bowel obstruction. There are surgical clips in the right upper quadrant consistent with a prior cholecystectomy. Left upper quadrant small bowel loops are at the upper limits of normal in size measuring 28 mm uncorrected for magnification. IMPRESSION: No evidence of bowel obstruction. No evidence of free air. ----- CT ABD/PELVIS IV CONTRAST ONLY CLINICAL HISTORY: Nausea and vomiting. COMPARISON STUDY: 12/09/2015 TECHNIQUE: Following the IV administration of 93 mL of Optiray-320, CT scan of the abdomen and pelvis was performed from the lung bases to the proximal femurs. Images are reviewed in the axial, sagittal, and coronal planes. IV contrast was administered without complication. A dose lowering technique was utilized adhering to the principles of ALARA. CT DOSE: 700.02 mGy.cm FINDINGS: Lower chest: The heart is normal in size and configuration, without pericardial effusion. The lung bases and pleural spaces are clear. Liver: The contrast-enhanced liver is normal in size, contour, and attenuation. There is no intrahepatic biliary ductal dilatation. The hepatic veins and portal veins are patent. Gallbladder: Surgically absent Spleen: Normal in size and attenuation. Pancreas: Unremarkable. Adrenal glands: Unremarkable. Kidneys: There is a 19 mm right renal cyst. There is a 1 cm lower pole left renal cyst. There is an extrarenal pelvis on the right. There is no significant hydronephrosis. Bowel: There are no transition zones indicate bowel obstruction. There is colonic diverticulosis. There are no acute peridiverticular inflammatory changes. There are no findings to indicate acute appendicitis. Peritoneum: There is no intraperitoneal free air or abdominal ascites. There is a small fat-containing umbilical hernia. Vasculature: The abdominal aorta is normal in course and caliber. Adenopathy: None. Pelvic viscera: The bladder, and pelvic viscera are unremarkable. Skeletal structures: No destructive osseous lesions are seen. There is SI joint sclerosis. IMPRESSION: 1. No evidence of bowel obstruction. No evidence of free air 2. Diverticulosis. No evidence of acute diverticulitis 3. No evidence of acute appendicitis Laboratory Results 04/12/17 08:35 Red Blood Count 3.34, Mean Corpuscular Volume 93.1, Mean Corpuscular Hemoglobin 29.6, Mean Corpuscular Hemoglobin Concent 31.8, Mean Platelet Volume 10.0, Neutrophils (%) (Auto) 75.7, Lymphocytes (%) (Auto) 14.5, Monocytes (%) (Auto) 7.8, Eosinophils (%) (Auto) 1.4, Basophils (%) (Auto) 0.3, Neutrophils # (Auto) 5.86, Lymphocytes # (Auto) 1.12, Monocytes # (Auto) 0.60, Eosinophils # (Auto) 0.11, Basophils # (Auto) 0.02 04/12/17 08:35 Test 04/12/17 08:35 04/12/17 08:46 04/12/17 10:20 White Blood Count 7.73 K/uL (4.8-10.8) Red Blood Count 3.34 M/uL (4.2-5.4) Hemoglobin 9.9 g/dL (12.0-16.0) Hematocrit 31.1 % (37-47) Mean Corpuscular Volume 93.1 fL (80-100) Mean Corpuscular Hemoglobin 29.6 pg (25-34) Mean Corpuscular Hemoglobin Concent 31.8 g/dl (32-36) Platelet Count 185 K/uL (130-400) Mean Platelet Volume 10.0 fL (7.4-10.4) Neutrophils (%) (Auto) 75.7 % Lymphocytes (%) (Auto) 14.5 % Monocytes (%) (Auto) 7.8 % Eosinophils (%) (Auto) 1.4 % Basophils (%) (Auto) 0.3 % Neutrophils # (Auto) 5.86 K/uL (1.4-6.5) Lymphocytes # (Auto) 1.12 K/uL (1.2-3.4) Monocytes # (Auto) 0.60 K/uL (0.11-0.59) Eosinophils # (Auto) 0.11 K/uL (0-0.5) Basophils # (Auto) 0.02 K/uL (0-0.2) RDW Standard Deviation 46.8 fL (36.4-46.3) RDW Coefficient of Variation 13.7 % (11.5-14.5) Immature Granulocyte % (Auto) 0.3 % Immature Granulocyte # (Auto) 0.02 K/uL (0.00-0.02) Anion Gap 8.0 mmol/L (3-11) Est Creatinine Clear Calc Drug Dose 41.2 ml/min Estimated GFR () 49.8 Estimated GFR (Non- 43.0 BUN/Creatinine Ratio 26.9 (10-20) Lactic Acid Level 0.8 mmol/L (0.4-2.0) Calcium Level 9.0 mg/dl (8.5-10.1) Total Bilirubin 0.5 mg/dl (0.2-1) Direct Bilirubin 0.2 mg/dl (0-0.2) Aspartate Amino Transf (AST/SGOT) 18 U/L (15-37) Alanine Aminotransferase (ALT/SGPT) 31 U/L (12-78) Alkaline Phosphatase 47 U/L (45-117) Troponin I < 0.015 ng/ml (0-0.045) Total Protein 7.2 gm/dl (6.4-8.2) Albumin 3.5 gm/dl (3.4-5.0) Lipase 131 U/L (73-393) Bedside Glucose 134 mg/dl (70-90) Urine Color YELLOW Urine Appearance CLOUDY (CLEAR) Urine pH 5.0 (4.5-7.5) Urine Specific [place] 1.023 (1.000-1.030) Urine Protein NEG (NEG) Urine Glucose (UA) NEG (NEG) Urine Ketones NEG (NEG) Urine Occult Blood NEG (NEG) Urine Nitrite NEG (NEG) Urine Bilirubin NEG (NEG) Urine Urobilinogen NEG (NEG) Urine Leukocyte Esterase TRACE (NEG) Urine WBC (Auto) 1-5 /hpf (0-5) Urine RBC (Auto) 0-4 /hpf (0-4) Urine Hyaline Casts (Auto) 0 /lpf (0-5) Urine Epithelial Cells (Auto) 5-10 /lpf (0-5) Urine Bacteria (Auto) NEG (NEG) Medications Administered Medications (Trade) Dose Ordered Sig/Lizy Route Start Time Stop Time Status Last Admin Dose Admin Sodium Chloride 1,000 ml @ 999 mls/hr Q1H1M STAT IV 04/12/17 08:16 04/12/17 09:16 DC 04/12/17 08:16 999 MLS/HR Ondansetron HCl (Zofran Inj) 4 mg NOW STAT IV 04/12/17 08:16 04/12/17 08:20 DC 04/12/17 08:41 4 MG Acetaminophen (Tylenol Tab) 1,000 mg NOW STAT PO 04/12/17 11:05 04/12/17 11:06 DC 04/12/17 11:12 1,000 MG ECG Indication: nausea, vomiting Rate (beats per minute): 71 Rhythm: normal sinus Findings: no acute ischemic change, no ectopy Change: no significant change (when compared to EKG from 07/18/2016) Medical Decision CC: Patient presenting with complaint of nausea and vomiting Interpretation of Labs: No leukocytosis, anemia (consistent with baseline), no significant electrolyte abnormalities, renal function upper limits of normal and consistent with dehydration, normal liver enzymes and lipase. Lactic acid within normal limits. Negative troponin. UA negative. Differential Diagnosis: Includes, but not limited to gastroenteritis, gastritis , food poisoning, dehydration, electrolyte abnormality, ACS, small bowel obstruction, ileus, bowel perforation, among others. Medication Reconciliation: I attest that I have personally reviewed the patient' s current medication list. Vital signs review: I reviewed the patient's vital signs and interpret them as follows: T: Afebrile; BP: Hypertensive; HR: Within normal limits; RR: Within normal limits; Pulse Ox: Within normal limits on room air. Blood pressure screening: The patient was found to have an elevated blood pressure and was referred to their primary doctor for recheck and further treatment. Summary: Patient was evaluated at bedside, history and physical exam performed. Patient is alert and oriented, no acute distress but does appear uncomfortable, resting in the stretcher. She states that she feels very tired and nauseated. She is not actively vomiting. She does appear moderately dehydrated dry mucous membranes and dry skin. The abdomen is completely nontender and nondistended with palpation. Orders were placed at bedside for labs, UA, IV fluids for hydration, IV Zofran for nausea, acute abdominal series and CT abdomen/pelvis to evaluate for bowel obstruction, free air under. Patient discussed with Dr. Brewer, who agrees with my assessment and plan. Labs are reviewed as above, no acute abnormalities. EKG shows normal sinus rhythm with no acute ischemic changes. X-ray and CT imaging reviewed, no acute abnormalities noted. Patient reassessed multiple times throughout ED stay, she reports she is feeling much better after receiving IV fluids and Zofran. She is now tolerating oral fluids and crackers without any difficulty. I updated the patient on all results and plan for discharge, encouraged her to follow closely with her PCP. Patient was also given strict return precautions should her symptoms worsen in any way, she verbalized understanding. Patient was discharged home in stable condition and ambulatory. Impression Primary Impression: Nausea and vomiting Departure Information Dispostion Home / Self-Care Condition GOOD Prescriptions Ondasetron Odt (ZOFRAN ODT) 4 Mg Tab 4 MG SL Q6H for Nausea, #6 TAB Prov: Margaret Santos CRNP 04/12/17 Referrals Capo Green M.D.([facility]) (PCP) Patient Instructions ED Food Poison Or Gastroenteritis, My [facility] Additional Instructions You have been treated in the Emergency Department today for nausea/vomiting and dehydration. Laboratory results and imaging studies have ruled out any emergent reasons for further evaluation, surgery, or admission. You have been prescribed Zofran to be taken as needed for severe nausea or vomiting. It is ESSENTIAL that you maintain adequate hydration with oral fluids! Some suggestions include: - Water is the IDEAL replacement for lost fluids. You should initially sip at the water to help facilitate increased intestinal absorption rate and to decrease the possibility of nausea/vomiting. - Carbohydrate/Electrolyte-Containing Drinks (i.e. Gatorade, Powerade, Pedialyte). All of these are good choices, but it is important to remember that all of these drinks contain a high concentration of sugar. - Popsicles, ice chips, and fruit juices are all other options. - My FAVORITE dehydration remedy is to mix a 1:1 solution of bottled Gatorade with bottled water. This dilution allows for a palatable flavor with added benefit of a reduction in the amount of sugar consumption. As with all Emergency Department visits, you should follow-up with your Primary Care Provider in 1-2 days for reevaluation. Return to the Emergency Department if your current symptoms worsen despite treatment course outlined above, or if you develop any of the following symptoms : Severe abdominal pain, persistent vomiting, vomiting bile or blood, blood in your stool, fevers/chills, weakness, dizziness or passing out, confusion, dark urine or decreased urine output. Problem Qualifiers Primary Impression: Nausea and vomiting Vomiting type: unspecified Vomiting Intractability: non-intractable Qualified Codes: R11.2 - Nausea with vomiting, unspecified
[2017-04-12] MEDS ORDERED: ACETAMINOPHEN 500 MG TAB PO STA (11:05)
[2017-04-12 13:10] VITALS: BP 161/79; PULSE 78; O2SAT 96
[2017-04-12] MEDS ORDERED: ONDA4TAB10 SL (13:11)
== END 2017-04-12 13:26 | disposition home or self-care (01) ==
LOC: C.EDB 07:54
DX: R11.2 Nausea with vomiting, unspecified (principal); E11.22 Type 2 diabetes mellitus with diabetic chronic kidney disease; N18.3 Chronic kidney disease, stage 3 (moderate); D63.1 Anemia in chronic kidney disease; E78.5 Hyperlipidemia, unspecified; K21.9 Gastro-esophageal reflux disease without esophagitis; E03.9 Hypothyroidism, unspecified; M17.0 Bilateral primary osteoarthritis of knee; G47.33 Obstructive sleep apnea (adult) (pediatric); D51.0 Vitamin B12 deficiency anemia due to intrinsic factor deficiency; Z79.4 Long term (current) use of insulin; Z90.89 Acquired absence of other organs; Z90.49 Acquired absence of other specified parts of digestive tract; Z80.49 Family history of malignant neoplasm of other genital organs; Z80.0 Family history of malignant neoplasm of digestive organs

== ENCOUNTER → 2017-06-12 | Outpatient (CLI) | payer OTHER ==
[~2017-06-12] MED LIST changes: -ASPEC325 PO; -FRRG PO; +KRIL1CAP18 PO; -OMEG10007 PO; +ONDA4TAB10 SL; -ULT50X PO
== END | disposition home or self-care (01) ==
LOC: C.PAPS 14:06
PROVIDERS: ATTEND Obstetrics & Gynecology
DX: Z12.4 Encounter for screening for malignant neoplasm of cervix (principal); Z78.0 Asymptomatic menopausal state

== ENCOUNTER 2018-06-11 10:25 | Observation (INO) ==
[2018-06-11] MEDS ORDERED: ASPIRIN CHEW 324 MG PO STA (10:46)
--- NOTE | 2018-06-11 11:00 | XRay Report ---
SINGLE VIEW CHEST CLINICAL HISTORY: Atypical chest pain. FINDINGS: An AP, portable, upright chest radiograph is compared to study dated 04/12/2017 and correlat ed with chest CT dated 12/01/2012. The examination is moderately degraded by portable technique and pa tient rotation. The heart is top normal for projection. There is mild bibasilar atelectasis. No airs pace consolidation or large pleural effusion is identified. No pneumothorax is seen. The skeletal str uctures are osteopenic. The bony thorax is grossly intact. Degenerative change is noted in the right shoulder. IMPRESSION: No acute cardiopulmonary abnormality. Electronically signed by: Garry Vang M.D. 06/11/2018 10:59 AM
[2018-06-11 11:35] LABS: Basophils # (auto) 0.04 K/uL (0-0.2); Basophils % (auto) 0.6 %; Eosinophils # (auto) 0.21 K/uL (0-0.5); Hematocrit (blood only) 33.5 % (37-47); Hemoglobin 10.8 g/dL (12.0-16.0); Immature Granulocytes # (auto) 0.01 K/uL (0.00-0.02); Immature Granulocytes % (auto) 0.1 %; Lymphocytes # (auto) 1.89 K/uL (1.2-3.4); Lymphocytes % (auto) 27.1 %; Mean Corpuscular Hgb Conc 32.2 g/dL (32-36); Mean Corpuscular Volume 90.8 fL (80-100); Mean Platelet Volume 10.3 fL (7.4-10.4); Monocytes % (auto) 8.6 %; Neutrophils # (auto) 4.22 K/uL (1.4-6.5); Neutrophils % (auto) 60.6 %; Platelet Count 211 K/uL (130-400); RDW Coefficient of Variation 13.3 % (11.5-14.5); RDW Standard Deviation 43.3 fL (36.4-46.3); Red Blood Count 3.69 M/uL (4.2-5.4); White Blood Count 6.97 K/uL (4.8-10.8)
[2018-06-11 11:52] LABS: Alanine Aminotransferase 47 U/L (12-78); Albumin Level 3.3 gm/dl (3.4-5.0); Aspartate Aminotransferase 25 U/L (15-37); BUN Creatinine Ratio 15.9 (10-20); Blood Urea Nitrogen 24 mg/dl (7-18); Calcium 8.9 mg/dl (8.5-10.1); Carbon Dioxide 24 mmol/L (21-32); Chloride 107 mmol/L (98-107); Creatinine Clr Calc Pharmacy 32.6 ml/min; Est GFR (African American) 37.1; Glucose 247 mg/dl (70-99); Potassium 4.1 mmol/L (3.5-5.1); Sodium 140 mmol/L (136-145)
[2018-06-11 11:57] LABS: Albumin Globulin Ratio 0.8 (0.9-2); Alkaline Phosphatase 53 U/L (45-117); Bilirubin,Total 0.6 mg/dl (0.2-1); Creatine Kinase 140 U/L (26-192); Creatine Kinase MB 2.4 ng/ml (0.5-3.6); Globulin 3.9 gm/dl (2.5-4.0); Total Protein 7.2 gm/dl (6.4-8.2); Troponin I < 0.015 ng/ml (0-0.045)
--- NOTE | 2018-06-11 14:10 | History & Physical Report ---
Date of Service June 11, 2018 Assessment & Plan (1) Chest pain: This is an 82yo F with a PMH of DM II, atypical chest pain, HTN, HLD, GERD , pernicious anemia, CKD III and other medical problems listed below who presents after an episode of chest pain during the night. -Atypical in presentation with epigastric and left chest wall pain, no associated N/V/SOB or diaphoresis -Occurred at rest in middle of night, resolved with ntg -Chest pain on lying down-Angina Decubitus -R/o ACS; risk factors include DM II, HTN, HLD -EKG with non-specific T wave changes in lateral leads, which was previously noted on November 2017 EKG -Initial troponin negative -Stress exercise echo performed in Dec 2017 without inducible ischemia. 2D echo with preserved EF of 55% -Trend serial cardiac enzymes -Discussed with cardiology. Plan to rule out overnight, NPO after midnight for possible stress test in AM (2) GERD (gastroesophageal reflux disease): Possible component of epigastric/chest discomfort -Denies burning pain, denies consumption of fatty/acid foods prior to episode -Continue H2 suresh (3) Pernicious anemia: (4) Anemia due to chronic kidney disease: Hgb at baseline of 10 -Receives monthly procrit injections, most recent dose 06/04/18 -Continue supplements -Daily CBC (5) DM type 2 (diabetes mellitus, type 2): A1c of 8 on 06/04 -Hold home agents -Basal/bolus per protocol -BSG checks ACHS (6) CKD (chronic kidney disease), stage III: Kidney function at baseline -Continue to monitor with daily BMP (7) Hypothyroidism: Continue levothyroxine (8) Dyslipidemia: Continue statin (9) DORIS on CPAP: CPAP HS DVT Ppx: SQ heparin Code status: FULL PCP: Norma Dispo: Observation telemetry. Plan to return home once medically stable. Patient seen in collaboration with Dr. Ochoa. Please see addendum. History of Present Illness Chief Complaint: chest pain Primary Care Provider: Capo Green MD This is an 82yo F with a PMH of DM II, atypical chest pain, HTN, HLD, GERD, pernicious anemia, CKD III and other medical problems listed below who presents after an episode of chest pain during the night. Patient was awakened around 2: 30 AM with epigastric pain with extension over to left chest that was sharp and constant. Associated with left arm pain but no shortness of breath, nausea, vomiting or diaphoresis. Patient took 2 sprays of ntg and pain in chest and left arm resolved. Denies eating fatty or acidic foods last evening. This morning, patient was climbing a flight of stairs when noted that she became visibily short of breath. She states that this is unusual for her but also admits to significantly less walking/activity over the past month due to cold weather. Came to ED for further evaluation. No longer experiencing chest discomfort or shortness of breath. Feels fatigued. + R calf tenderness. Denies fever, chills, palpitations, SOB, orthopnea, PND, weight gain, nausea, vomiting or abdominal pain. Was evaluated by cardiology in 2015 and chest pain was thought to be atypical. PCP Dr. Green arranged for 2D echo in Dec 2017 which showed preserved EF of 55% and exercise stress echo performed at this time was negative for inducible ischemia. Per , patient has had 2 other similar instances of chest pain during the night over the past few months that has resolved with ntg. Patient does not recall these events. EKG with non-specific T wave changes in lateral leads, which was previously noted on November [address] Howell and plan for cardiac rule out overnight and possible stress test in AM. Allergies Allergy/AdvReac Type Severity Reaction Status Date / Time Cipro Allergy Mild RASH Verified 04/12/17 08:27 ciprofloxacin Allergy Mild RASH Verified 06/11/18 11:06 metformin AdvReac Intermediate GI SYMPTOMS Verified 06/11/18 11:06 BENEDICT Inhibitors AdvReac Unknown COUGH Verified 06/11/18 11:06 Home Medications Home Medications Medication Instructions Recorded Confirmed Type acetaminophen [Tylenol Extra 1,000 mg PO Q8H PRN 06/11/18 06/11/18 History Strength] biotin 1 mg PO DAILY 06/11/18 06/11/18 History calcium carbonate [Calcium 500] 500 mg PO DAILY 06/11/18 06/11/18 History epoetin lou [Procrit] 10,000 unit SUBCUT UD 06/11/18 06/11/18 History ferrous sulfate 325 mg PO DAILY 06/11/18 06/11/18 History insulin asp prt-insulin aspart 6 unit SUBCUT BIDM 06/11/18 06/11/18 History [Novolog Mix 70-30FlexPen U-100] [id number]-[id number] 1 cap PO QDL 06/11/18 06/11/18 History [krill oil] lactobacillus combination no.4 3,000 mmu cells PO QAM 06/11/18 06/11/18 History [Probiotic] levothyroxine 75 mcg PO QAM 06/11/18 06/11/18 History losartan 50 mg PO DAILY 06/11/18 06/11/18 History nitroglycerin 2 spray SUBLINGUAL UD PRN 06/11/18 06/11/18 History omega-3 fatty acids 500 mg PO DAILY@1200 06/11/18 06/11/18 History oxybutynin chloride 5 mg PO HS 06/11/18 06/11/18 History ranitidine HCl 150 mg PO BID 06/11/18 06/11/18 History simvastatin 40 mg PO HS 06/11/18 06/11/18 History tramadol 50 mg PO Q6H PRN 06/11/18 06/11/18 History vitamin B complex 1 tab PO DAILY 06/11/18 06/11/18 History Past Med/Surg History Medical History Pernicious anemia (Chronic) Hypothyroidism (Chronic) GERD (gastroesophageal reflux disease) (Chronic) CKD (chronic kidney disease), stage III (Chronic) Dyslipidemia (Chronic) DORIS on CPAP (Chronic) DM type 2 (diabetes mellitus, type 2) (Chronic) 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) Chest pain (Acute) Surgical History S/P cholecystectomy (Resolved) History of dilation and curettage (Resolved) History of appendectomy (Resolved) History of knee surgery (Resolved) Family History Mother Heart disease Diabetes Social History marital status: Current Living Situation: Spouse current occupational status: retired Other Information That Helps Us Care for You: No Feels Safe at Home: Yes Safety Concerns: Feels Safe At This Time Smoking Status: Former smoker Do You Dip or Chew Tobacco: No Smoking End Date: >/= 31 years ago Second Hand Exposure: No Hx Alcohol Use: No Hx Substance Use: No Beliefs That Will Affect Care: Congregation Congregation Beliefs: Advent Preferred Language: Sudanese Communication Ability: Effective Move Coordinator Required: No Review of Systems All systems reviewed & are unremarkable except as noted in HPI & below Physical Exam 2 Vital Signs (Past 24 Hours): Last Vital Signs Temp 36.6 C 06/11/18 10:29 Pulse 59 L 06/11/18 12:00 Resp 18 06/11/18 12:00 BP 148/66 H 06/11/18 12:00 Pulse Ox 97 06/11/18 12:00 Physical Exam: General Appearance: WD/WN, no apparent distress, resting comfortably Head: normocephalic, atraumatic Eyes: normal inspection, PERRL, EOMI ENT: hearing grossly normal, pharynx normal (moist mucous membranes) Neck: supple, no JVD, no adenopathy Respiratory/Chest: No chest wall tenderness. Lungs clear to auscultation. No wheezes, rales or rhonci. No respiratory distress or accessory muscle use Cardiovascular: regular rate, rhythm, no murmur appreciated, normal peripheral pulses Abdomen/GI: normal bowel sounds, soft, non-tender to palpation Extremities/Musculoskelatal: normal inspection, + R calf tenderness, normal capillary refill, no pedal edema Neurologic/Psych: alert, normal mood/affect, oriented x 3 Skin: normal color, warm/dry Results & Data Laboratory Results Short CBC 06/11/18 Range/Units 11:25 WBC 6.97 (4.8-10.8) K/uL Hgb 10.8 L (12.0-16.0) g/dL Hct 33.5 L (37-47) % Plt Count 211 (130-400) K/uL BMP 06/11/18 11:25 Sodium 140 Potassium 4.1 Chloride 107 Carbon Dioxide 24 BUN 24 H Creatinine 1.52 H Glucose 247 H Calcium 8.9 Cardiac Enzymes 06/11/18 Range/Units 11:25 Total Creatine Kinase 140 (26-192) U/L CK-MB (CK-2) 2.4 (0.5-3.6) ng/ml Troponin I < 0.015 (0-0.045) ng/ml Liver Function 06/11/18 Range/Units 11:25 Total Bilirubin 0.6 (0.2-1) mg/dl AST 25 (15-37) U/L ALT 47 (12-78) U/L Alkaline Phosphatase 53 (45-117) U/L Albumin 3.3 L (3.4-5.0) gm/dl Diagnostic Findings CXR: IMPRESSION: No acute cardiopulmonary abnormality. Bilateral venous dopplers: ECG Indication: chest pain Rhythm: sinus rhythm Findings: + other (non specific ST and T wave abnormalities) Change: no significant change Code Status & VTE Plan Code Status FULL Supervising Physician Co-Signing Physician Notes Attending addendum The patient was seen and examined in telemetry She was admitted with atypical chest pain, chest pain mostly on lying down but she has been quite active recently without any episode during physical activity. She denies any symptoms during the examination On Examination Lying in bed comfortably Hemodynamically stable Chest-clear to auscultate bilaterally Heart-S1-S2 regular Abdomen-benign, nontender Extremities-negative for any edema Admission labs, EKG and imaging studies reviewed Has atypical angina rule out ACS for stress test in the morning Acute assessment and plan as outlined above by Cherri Ochoa
--- NOTE | 2018-06-11 14:54 | Ultrasound Report ---
ULTRASOUND BILATERAL LOWER EXTREMITY VENOUS CLINICAL HISTORY: Leg pain. COMPARISON STUDY: Bilateral lower extremity venous ultrasound dated 07/22/2013. TECHNIQUE: Real-time, grayscale, and color Doppler sonography of the deep veins of the right and left lower extremity was performed from the inguinal crease to the calf. Compression and augmentation wer e utilized. FINDINGS: There is no sonographic evidence of deep venous thrombosis identified in the right or left lower extremity. The common femoral, superficial femoral, and popliteal veins are patent and normally compressible bilaterally. The greater saphenous vein and the profunda femoris vein at the junction w ith the common femoral vein are clear in both legs. The visualized calf veins are patent bilaterally. IMPRESSION: There is no sonographic evidence of deep venous thrombosis identified in the right or lef t lower extremity. Electronically signed by: Garry Vang M.D. 06/11/2018 2:53 PM
--- NOTE | 2018-06-11 15:20 | Emergency Department Note ---
Entered by Danna Otero acting as a scribe for History of Present Illness General Chief complaint: Chest Pain Stated complaint: CHEST PAIN, WEAK, HIGH BLOOD PRESSURE, SUGAR HIGH Time Seen by Provider: 06/11/18 10:37 Source: patient History of Present Illness Onset (ago): day(s) (last night) Location: chest Pain Consistency: + other (sudden) Relieved By: + medication (Nitroglycerin) Associated symptoms: + cough and + other (abdominal pain) The patient is an 82 year old female who presents to the Emergency Room with complaints of sudden chest pain starting last night. The patient states that she was sick with the flu for a while. She states that she has gotten over the majority of her symptoms, but still occasionally has a cough. She states that last night while she was sleeping she suddenly awoke with chest pain. She reports that she took 2 Nitroglycerin and it took the pain away. She states hat this morning she was telling her son this and he called her PCP who said to come to the ED. The patient notes that she took an Aspirin last night. The patient complains of abdominal pain that is a pressure and is worse when she sits down. She notes that she has a history of heart murmur and had a cardiac cath done at [facility], but it was not completed since they started losing her. The patient denies use of other blood thinners. Home Medications Home Medications Medication Instructions Recorded Confirmed Type acetaminophen [Tylenol Extra 1,000 mg PO Q8H PRN 06/11/18 06/11/18 History Strength] biotin 1 mg PO DAILY 06/11/18 06/11/18 History calcium carbonate [Calcium 500] 500 mg PO DAILY 06/11/18 06/11/18 History epoetin lou [Procrit] 10,000 unit SUBCUT UD 06/11/18 06/11/18 History ferrous sulfate 325 mg PO DAILY 06/11/18 06/11/18 History insulin asp prt-insulin aspart 6 unit SUBCUT BIDM 06/11/18 06/11/18 History [Novolog Mix 70-30FlexPen U-100] gbclc-he-8-fgm-[id number]-byrkodv-ast 1 cap PO QDL 06/11/18 06/11/18 History [krill oil] lactobacillus combination no.4 3,000 mmu cells PO QAM 06/11/18 06/11/18 History [Probiotic] levothyroxine 75 mcg PO QAM 06/11/18 06/11/18 History losartan 50 mg PO DAILY 06/11/18 06/11/18 History nitroglycerin 2 spray SUBLINGUAL UD PRN 06/11/18 06/11/18 History omega-3 fatty acids 500 mg PO DAILY@1200 06/11/18 06/11/18 History oxybutynin chloride 5 mg PO HS 06/11/18 06/11/18 History ranitidine HCl 150 mg PO BID 06/11/18 06/11/18 History simvastatin 40 mg PO HS 06/11/18 06/11/18 History tramadol 50 mg PO Q6H PRN 06/11/18 06/11/18 History vitamin B complex 1 tab PO DAILY 06/11/18 06/11/18 History Allergies Allergy/AdvReac Type Severity Reaction Status Date / Time Cipro Allergy Mild RASH Verified 04/12/17 08:27 ciprofloxacin Allergy Mild RASH Verified 06/11/18 11:06 metformin AdvReac Intermediate GI SYMPTOMS Verified 06/11/18 11:06 BENEDICT Inhibitors AdvReac Unknown COUGH Verified 06/11/18 11:06 Past Med/Surg History Medical History Pernicious anemia (Chronic) Hypothyroidism (Chronic) GERD (gastroesophageal reflux disease) (Chronic) CKD (chronic kidney disease), stage III (Chronic) Dyslipidemia (Chronic) DORIS on CPAP (Chronic) DM type 2 (diabetes mellitus, type 2) (Chronic) 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 and A total of 10 systems reviewed and were otherwise negative Physical Exam Vital Signs Vital Signs - 24 hr 06/11/18 10:26 06/11/18 10:29 06/11/18 11:25 Temperature 36.6 C Temperature Source Oral Oral Sepsis Recent Fever Within 48 Hours No Sepsis New/Unexplained Change in Mental Status No Sepsis Action Taken by Nursing No Action Required Pulse Rate 76 76 Pulse Rate [Apical] Pulse Rhythm [Apical] Respiratory Rate 18 18 Respiratory Effort / Characteristics Non-Labored Respiratory Depth Normal Blood Pressure 164/81 H Blood Pressure [Right Arm] Blood Pressure Mean 108 Blood Pressure Mean [Right Arm] Pulse Oximetry 96 96 96 Oxygen Delivery Method Room Air Room Air Room Air 06/11/18 12:00 06/11/18 14:00 Temperature Temperature Source Sepsis Recent Fever Within 48 Hours Sepsis New/Unexplained Change in Mental Status Sepsis Action Taken by Nursing Pulse Rate Pulse Rate [Apical] 59 L 55 L Pulse Rhythm [Apical] Regular Respiratory Rate 18 18 Respiratory Effort / Characteristics Respiratory Depth Normal Blood Pressure Blood Pressure [Right Arm] 148/66 H 162/73 H Blood Pressure Mean Blood Pressure Mean [Right Arm] 93 102 Pulse Oximetry 97 95 Oxygen Delivery Method Room Air Room Air GENERAL: Awake, alert, well-appearing, in no distress HENT: Normocephalic, atraumatic. Oropharynx unremarkable. EYES: Normal conjunctiva. Sclera non-icteric. NECK: Supple. No nuchal rigidity. FROM. No masses. RESPIRATORY: Clear to auscultation. No wheezes. No rales. Normal respiratory effort. CARDIAC: Normal rate. Normal rhythm. No murmurs. No rubs. Extremities warm and well perfused. Pulses equal. No JVD. GI: Soft, non-distended. No tenderness to palpation. No rebound or guarding. No masses. RECTAL: Deferred. MUSCULOSKELETAL: Atraumatic. Chest examination reveals no tenderness. The back is symmetrical on inspection without obvious abnormality. There is no CVA tenderness to palpation. No joint edema. LOWER EXTREMITIES: Calves are equal size bilaterally and non-tender. No edema. No discoloration. NEURO: Normal sensorium. No sensory or motor deficits noted. Course 1040: Past medical records reviewed. The patient was evaluated in room B10, and a complete history and physical examination were performed. 1222: I reevaluated the patient and discussed her test results with her and her son. I discussed the treatment plan with them. They verbally agree and understand. 1235: I reviewed the patient's case with Cherri Coronado PA-C- [facility]. She will evaluate the patient for further management. Consultations Consultation #1: I [facility] the patient's [facility] She will evaluate the patient for further management. Time: 12:35 Administered Medications Discontinued Medications Aspirin (Aspirin) 324 mg PO NOW STA Stop: 06/11/18 10:47 Last Admin: 06/11/18 11:30 Dose: 324 mg Medical Decision Making Differential Diagnosis Differential diagnosis: Etiologies such as shingles, musculoskeletal pain, pericarditis, myocarditis, cardiac ischemia, pericardial tamponade, pneumonia, pneumothorax, pleural effusion, hemothorax, pleurisy, aortic pathology, pulmonary embolism, intra- abdominal process, as well as others were considered. Medical Records Attestation: I reviewed the patient's medical records. Home Medications Current Medication List: was personally reviewed by me Laboratory Data Attestation: I reviewed the patient's lab results. Result diagrams: 06/11/18 11:25 06/11/18 11:25 Lab Results 06/11/18 06/11/18 Range/Units 11:25 11:25 WBC 6.97 (4.8-10.8) K/uL RBC 3.69 L (4.2-5.4) M/uL Hgb 10.8 L (12.0-16.0) g/dL Hct 33.5 L (37-47) % MCV 90.8 (80-100) fL MCH 29.3 (25-34) pg MCHC 32.2 (32-36) g/dL RDW Std Deviation 43.3 (36.4-46.3) fL RDW Coeff of Elpidio 13.3 (11.5-14.5) % Plt Count 211 (130-400) K/uL MPV 10.3 (7.4-10.4) fL Immature Gran % (Auto) 0.1 % Neut % (Auto) 60.6 % Lymph % (Auto) 27.1 % [place] % (Auto) 8.6 % Eos % (Auto) 3.0 % Baso % (Auto) 0.6 % Immature Gran # (Auto) 0.01 (0.00-0.02) K/uL Neut # (Auto) 4.22 (1.4-6.5) K/uL Lymph # (Auto) 1.89 (1.2-3.4) K/uL [place] # (Auto) 0.60 H (0.11-0.59) K/uL Eos # (Auto) 0.21 (0-0.5) K/uL Baso # (Auto) 0.04 (0-0.2) K/uL Sodium 140 (136-145) mmol/L Potassium 4.1 (3.5-5.1) mmol/L Chloride 107 (98-107) mmol/L Carbon Dioxide 24 (21-32) mmol/L Anion Gap 9.0 (3-11) BUN 24 H (7-18) mg/dl Creatinine 1.52 H (0.6-1.2) mg/dl Est Cr Clr Drug Dosing 32.6 ml/min Est GFR ( Amer) 37.1 Est GFR (Non-Af Amer) 32.0 BUN/Creatinine Ratio 15.9 (10-20) Glucose 247 H (70-99) mg/dl Calcium 8.9 (8.5-10.1) mg/dl Total Bilirubin 0.6 (0.2-1) mg/dl AST 25 (15-37) U/L ALT 47 (12-78) U/L Alkaline Phosphatase 53 (45-117) U/L Total Creatine Kinase 140 (26-192) U/L CK-MB (CK-2) 2.4 (0.5-3.6) ng/ml CK/CKMB % Calc 1.7 (0-3.0) Troponin I < 0.015 (0-0.045) ng/ml Total Protein 7.2 (6.4-8.2) gm/dl Albumin 3.3 L (3.4-5.0) gm/dl Globulin 3.9 (2.5-4.0) gm/dl Albumin/Globulin Ratio 0.8 L (0.9-2) Lipase 88 (73-393) U/L Imaging Data Radiologist's Impression: Radiology results as stated below per my review and the radiologist's interpretation: SINGLE VIEW CHEST CLINICAL HISTORY: Atypical chest pain. FINDINGS: An AP, portable, upright chest radiograph is compared to study dated 04/12/2017 and correlated with chest CT dated 12/01/2012. The examination is moderately degraded by portable technique and patient rotation. The heart is top normal for projection. There is mild bibasilar atelectasis. No airspace consolidation or large pleural effusion is identified. No pneumothorax is seen. The skeletal structures are osteopenic. The bony thorax is grossly intact. Degenerative change is noted in the right shoulder. IMPRESSION: No acute cardiopulmonary abnormality. Electronically signed by: Garry Vang M.D. 06/11/2018 10:59 AM ECG Data Attestation: I personally reviewed and interpreted this ECG as follows: Indication: chest pain Rate (beats per minute): 70 Rhythm: sinus rhythm Findings: + T-wave inversion (lateral leads); no ST depression and no ST elevation Comparison ECG Date: from (04/12/2017) Change: the following changes noted (TWI are new in the lateral leads) Blood Pressure Blood Pressure Findings: Elevated blood pressure Blood Pressure Disposition: further management by hospitalist MDM Narrative This is an 82-year-old female who presents emergency permit complaining of chest pain. The patient reports that the chest pain awoke her from sleep and was relieved by nitro x2. Patient was sent in by her primary care physician. She was given 324 mg of aspirin here in the emergency department. She is pain- free at this point. She has new T wave inversions in her EKG. Based on this I did discuss her case with the hospitalist service who agreed to admit the patient. The patient does not have an elevation in her CK-MB troponin her CBC. Patient was in agreement with the treatment plan. Impression & Plan Chest pain, Unstable angina Discharge Plan Visit Data Chief Complaint: Chest Pain Stated Complaint: CHEST PAIN, WEAK, HIGH BLOOD PRESSURE, SUGAR HIGH ED Provider: Homero Brewer Discharge Problem: Chest pain, Unstable angina Patient Disposition: Being Evaluated by Hospitalist Forms Stand Alone Forms: Call Back Authorization, [facility] Prescriptions Prescriptions: No Action losartan 50 mg tablet 50 mg PO DAILY RF: 0 acetaminophen [Tylenol Extra Strength] 500 mg Tablet 1,000 mg PO Q8H PRN (Reason: pain/fever) RF: 0 simvastatin 40 mg tablet 40 mg PO HS RF: 0 levothyroxine 75 mcg tablet 75 mcg PO QAM RF: 0 calcium carbonate [Calcium 500] 500 mg calcium (1,250 mg) Tablet 500 mg PO DAILY RF: 0 ferrous sulfate 325 mg (65 mg iron) Tablet 325 mg PO DAILY RF: 0 ranitidine HCl 150 mg tablet 150 mg PO BID RF: 0 vitamin B complex Tablet 1 tab PO DAILY RF: 0 epoetin lou [Procrit] 10,000 unit/mL solution 10,000 unit subcut UD RF: 0 insulin asp prt-insulin aspart [Novolog Mix 70-30FlexPen U-100] 100 unit/mL ( 70-30) insulin pen 6 unit subcut BIDM RF: 0 lactobacillus combination no.4 [Probiotic] 3 billion cell Capsule 3,000 mmu cells PO QAM RF: 0 lwqdl-ed-7-rsd-sxb-pkhusis-ast [krill oil] 105-992-77-75 mg Capsule 1 cap PO QDL RF: 0 tramadol 50 mg Tablet 50 mg PO Q6H PRN (Reason: Pain) RF: 0 nitroglycerin 400 mcg/spray spray,non-aerosol 2 spray Sublingual UD PRN (Reason: Chest Pain) RF: 0 oxybutynin chloride 5 mg Tablet 5 mg PO HS RF: 0 biotin 1 mg Tablet 1 mg PO DAILY RF: 0 omega-3 fatty acids 500 mg Capsule 500 mg PO DAILY@1200 RF: 0 Referrals Referrals: Capo Green MD [Primary Care Provider] - The scribe's documentation has been prepared under my direction and personally reviewed by me in its entirety. I confirm that the note above accurately reflects all work, treatment, procedures, and medical decision making performed by me.
[2018-06-11] MEDS ORDERED: GLUCOSE 10 TABS/TUBE PO PRN (15:50)
[2018-06-11] MEDS ORDERED: TRAMADOL HCL 50 MG TABLET PO PRN (15:50)
[2018-06-11] MEDS ORDERED: CARBOHYDRATES FOR HYPOGLYCEMIA PO PRN (15:50)
[2018-06-11] MEDS ORDERED: POLYETHYLENE (MIRALAX) 17 GM PACK PO PRN (15:50)
[2018-06-11] MEDS ORDERED: NITROGLYCERIN 60 SPRAYS/4.9 GM SPRAY SL PRN (15:50)
[2018-06-11] MEDS ORDERED: DEXTROSE 50% 50 ML SYRINGE IV PRN (15:50)
[2018-06-11] MEDS ORDERED: GLUCAGON FOR INJ 1 MG VIAL SQ PRN (15:50)
[2018-06-11] MEDS ORDERED: ACETAMINOPHEN 500 MG TAB PO PRN (15:50)
[2018-06-11] MEDS ORDERED: ONDANSETRON INJ 2 MG/ML 2 ML VIAL IV PRN (15:50)
[2018-06-11] MEDS ORDERED: GLUCOSE 40% GEL 15 GM TUBE PO PRN (15:50)
--- NOTE | 2018-06-11 17:50 | Cardiology Consultation ---
Date of Consultation June 11, 2018 Assessment & Plan (1) Chest pain: Patient symptoms have atypical features not exacerbated by exertion predominately occur when lying down at night. EKGs and enzymes are negative to date per signs or symptoms of acute ischemia Plan continue current medical therapies Potential dobutamine stress echo tomography in a.m. given multiple risk factors , aid in progression and management Consider GI evaluation as part of course (2) Dyslipidemia: (3) DORIS on CPAP: (4) DM type 2 (diabetes mellitus, type 2): History of Present Illness Reason for Consultation: Epigastric/chest pain Requesting Physician: Dr. Ochoa Attending Physician: Yehuda Nelson MD History of Present Illness Patient is an 82-year-old female whose past medical history is notable for hypertension, obstructive sleep apnea on CPAP supplementation, type 2 diabetes mellitus insulin requiring, chronic renal insufficiency, chronic anemia on Procrit supplementation, chronic gastroesophageal reflux. Patient presents now describing symptoms of pressure burning pain in her mid epigastric and lower chest when lying down at night. Symptoms are not exacerbated by activity or exertion and patient specifically walks 1 mile per day for approximately 45 minutes with good tolerance overall feels well when exerting self notes no dizziness lightest syncope near syncope notes no tachypalpitations. Symptoms did result in prior evaluation including stress echocardiography in December 2017 to low-level workload and adequate heart rate. Patient currently denies fevers chills or sweats notes no worsening shortness of breath n notes no orthopnea PND or peripheral edema. Appetite is generally fair. Sleeps okay at night except for symptoms as described. Takes medications as prescribed patient fair historian. Denies any acute weight loss or gain. Patient receives Procrit injections on a q. 3-4-week basis Notes remote to attempted cardiac catheterization greater than 30 years ago at [facility] with procedure terminated prior to completion due to procedural induced arrest Allergies Allergy/AdvReac Type Severity Reaction Status Date / Time Cipro Allergy Mild RASH Verified 04/12/17 08:27 ciprofloxacin Allergy Mild RASH Verified 06/11/18 11:06 metformin AdvReac Intermediate GI SYMPTOMS Verified 06/11/18 11:06 BENEDICT Inhibitors AdvReac Unknown COUGH Verified 06/11/18 11:06 Home Medications Home Medications Medication Instructions Recorded Confirmed Type acetaminophen [Tylenol Extra 1,000 mg PO Q8H PRN 06/11/18 06/11/18 History Strength] biotin 1 mg PO DAILY 06/11/18 06/11/18 History calcium carbonate [Calcium 500] 500 mg PO DAILY 06/11/18 06/11/18 History epoetin lou [Procrit] 10,000 unit SUBCUT UD 06/11/18 06/11/18 History ferrous sulfate 325 mg PO DAILY 06/11/18 06/11/18 History insulin asp prt-insulin aspart 6 unit SUBCUT BIDM 06/11/18 06/11/18 History [Novolog Mix 70-30FlexPen U-100] mefri-he-2-cfs-nya-pgoiaid-ast 1 cap PO QDL 06/11/18 06/11/18 History [krill oil] lactobacillus combination no.4 3,000 mmu cells PO QAM 06/11/18 06/11/18 History [Probiotic] levothyroxine 75 mcg PO QAM 06/11/18 06/11/18 History losartan 50 mg PO DAILY 06/11/18 06/11/18 History nitroglycerin 2 spray SUBLINGUAL UD PRN 06/11/18 06/11/18 History omega-3 fatty acids 500 mg PO DAILY@1200 06/11/18 06/11/18 History oxybutynin chloride 5 mg PO HS 06/11/18 06/11/18 History ranitidine HCl 150 mg PO BID 06/11/18 06/11/18 History simvastatin 40 mg PO HS 06/11/18 06/11/18 History tramadol 50 mg PO Q6H PRN 06/11/18 06/11/18 History vitamin B complex 1 tab PO DAILY 06/11/18 06/11/18 History Patient History Medical History Pernicious anemia (Chronic) Hypothyroidism (Chronic) GERD (gastroesophageal reflux disease) (Chronic) CKD (chronic kidney disease), stage III (Chronic) Dyslipidemia (Chronic) DORIS on CPAP (Chronic) DM type 2 (diabetes mellitus, type 2) (Chronic) 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) Chest pain (Acute) Surgical History S/P cholecystectomy (Resolved) History of dilation and curettage (Resolved) History of appendectomy (Resolved) History of knee surgery (Resolved) Family History Mother Heart disease Diabetes Social History marital status: Current Living Situation: Spouse current occupational status: retired Other Information That Helps Us Care for You: No Feels Safe at Home: Yes Safety Concerns: Feels Safe At This Time Smoking Status: Former smoker Do You Dip or Chew Tobacco: No Smoking End Date: >/= 31 years ago Second Hand Exposure: No Hx Alcohol Use: No Hx Substance Use: No Beliefs That Will Affect Care: Buddhism Buddhism Beliefs: Jehovah'S Witness Preferred Language: [place] Communication Ability: Effective Puppy Trainer Required: No Review of Systems Per HPI and otherwise negative with patient fair historian only Physical Exam 2 Vital Signs (Past 24 Hours): Last Vital Signs Temp 37.2 C 06/11/18 16:46 Pulse 59 L 06/11/18 16:46 Resp 21 06/11/18 16:46 BP 151/70 H 06/11/18 16:46 Pulse Ox 97 06/11/18 16:46 Physical Exam: Patient is elderly age-appropriate female currently no acute distress eating dinner. Denies chest pain or discomfort vital signs are as above HEENT exam is normocephalic and atraumatic overall skin complexion is pale pupils equal round reactive accommodation nares without discharge throat was clear Neck thin there is no palpable lymphadenopathy or jugular venous distention Lungs: Predominately clear to auscultation without rhonchi rales or wheeze Cardiovascular exam: Regular with normal S1-S2 there is no audible murmur rub Abdomen: Exam feels full but no palpable hepatomegaly or mass i no audible bruit Extremities: Intact distal pulses there is no peripheral edema Neuro patient is alert answering questions appropriately with fair recollection of most details Results & Data Laboratory Results Laboratory Results - last 24 hr 06/11/18 06/11/18 06/11/18 11:25 11:25 16:44 WBC 6.97 RBC 3.69 L Hgb 10.8 L Hct 33.5 L MCV 90.8 MCH 29.3 MCHC 32.2 RDW Std Deviation 43.3 RDW Coeff of Elpidio 13.3 Plt Count 211 MPV 10.3 Immature Gran % (Auto) 0.1 Neut % (Auto) 60.6 Lymph % (Auto) 27.1 [place] % (Auto) 8.6 Eos % (Auto) 3.0 Baso % (Auto) 0.6 Immature Gran # (Auto) 0.01 Neut # (Auto) 4.22 Lymph # (Auto) 1.89 [place] # (Auto) 0.60 H Eos # (Auto) 0.21 Baso # (Auto) 0.04 Sodium 140 Potassium 4.1 Chloride 107 Carbon Dioxide 24 Anion Gap 9.0 BUN 24 H Creatinine 1.52 H Est Cr Clr Drug Dosing 32.6 Est GFR ( Amer) 37.1 Est GFR (Non-Af Amer) 32.0 BUN/Creatinine Ratio 15.9 Glucose 247 H POC Glucose 100 H Calcium 8.9 Total Bilirubin 0.6 AST 25 ALT 47 Alkaline Phosphatase 53 Total Creatine Kinase 140 CK-MB (CK-2) 2.4 CK/CKMB % Calc 1.7 Troponin I < 0.015 Total Protein 7.2 Albumin 3.3 L Globulin 3.9 Albumin/Globulin Ratio 0.8 L Lipase 88 ECG Additional Comments: 11-JUN-2018 10:50:12 [facility] Sinus rhythm with marked sinus arrhythmia Nonspecific ST and T wave abnormality Abnormal ECG When compared with ECG of 12-APR-2017 08:37, No significant change was found
[2018-06-11 18:01] LABS: Prothrombin Time 10.5 Seconds (9.0-12.0)
[2018-06-11] MEDS: INSULIN ASPART 100 UNITS/ML 3 ML PEN SC SCH ×2 (19:13→20:46)
[2018-06-11] MEDS ORDERED: SIMVASTATIN 40 MG TAB PO SCH (21:00)
[2018-06-11] MEDS ORDERED: INSULIN GLARGINE SOLOSTAR 100 UNITS/ML 3 ML PEN SC SCH (21:00)
[2018-06-11] MEDS ORDERED: OXYBUTYNIN CHLORIDE 5 MG TAB PO SCH (21:00)
[2018-06-11] MEDS: HEPARIN SOD 5,000 UNIT/0.5 ML VIAL SQ SCH (22:18)
[2018-06-12 04:31] LABS: Hematocrit (blood only) 32.3 % (37-47); Hemoglobin 10.5 g/dL (12.0-16.0); Mean Corpuscular Hgb Conc 32.5 g/dL (32-36); Platelet Count 210 K/uL (130-400); RDW Coefficient of Variation 13.1 % (11.5-14.5); RDW Standard Deviation 42.6 fL (36.4-46.3); Red Blood Count 3.59 M/uL (4.2-5.4); White Blood Count 7.13 K/uL (4.8-10.8)
[2018-06-12 04:51] LABS: BUN Creatinine Ratio 18.1 (10-20); Calcium 8.7 mg/dl (8.5-10.1); Creatinine Clr Calc Pharmacy 35.6 ml/min; Est GFR (African American) 42.1; Est GFR (Non-African American) 36.3; Potassium 4.4 mmol/L (3.5-5.1)
[2018-06-12] MEDS ORDERED: LEVOTHYROXINE SODIUM 75 MCG TABLET PO SCH (06:30)
[2018-06-12] MEDS: HEPARIN SOD 5,000 UNIT/0.5 ML VIAL SQ SCH ×2 (06:33→15:42)
[2018-06-12] MEDS: INSULIN ASPART 100 UNITS/ML 3 ML PEN SC SCH ×3 (08:11→17:02)
[2018-06-12] MEDS ORDERED: LACTOBACILLUS ACIDOPHILUS (FLORANEX) TAB PO SCH (09:00)
[2018-06-12] MEDS ORDERED: VITAMIN B COMPLEX TAB PO SCH (09:00)
[2018-06-12] MEDS ORDERED: FERROUS SULFATE 325 MG TAB PO SCH (09:00)
[2018-06-12] MEDS ORDERED: NON-FORMULARY MEDICATION (Biotin [Biotin] 1 MG) PO SCH (09:00)
[2018-06-12] MEDS ORDERED: CALCIUM CARBONATE 1250MG TAB PO SCH (09:00)
[2018-06-12] MEDS ORDERED: LOSARTAN POTASSIUM 50 MG TAB PO SCH (09:00)
--- NOTE | 2018-06-12 10:13 | Gastrointestinal Consultation ---
Date of Consultation June 12, 2018 Assessment & Plan (1) Chest pain: 82 year old femael with history of severe GERD admitted with CP (left chest and epigastric) with negative troponins and unchanged EKG - to go for stress test today. DDX disccused: cardiac CP vs non-cardiac CP - Agree with continued cardiology work up - Would restart PO Pantoprazole 40 mg in the AM - Can continue home dosing of Zantac HS - GERD dietary/lifestyle changes - Endoscopic evaluation - She is unsure if she wishes to proceed with endoscopy - She wants to go home today after her cardiac workup - If agreeable, can have OP EGD in 1-2 weeks - GI to sign off. Thank you for allowing us to participate in the care of this patient. Please call with any acute changes, questions or concerns. Please see addendum below with additional recommendation from my supervising physician. Present on Admission?: Yes Supervising Physician Co-Signing Physician Notes I saw and evaluated the patient. We are consulted for question of chest pain. The patient did have a prior endoscopy with Dr. Ramirez several years ago and was told to continue on a proton pump inhibitor. It appears that this was stopped several years ago. She denies having difficulty with swallowing or pain with swallowing. She is presently under valuation for cardiac etiologies to her discomfort but notes that her pain has resolved. Physical examination Elderly female in no obvious distress Impression: Patient with a history of chest pain unclear if this is a cardiac or etiology such as reflux. Once the patient's cardiac workup is complete we can certainly plan for outpatient upper endoscopy for further evaluation. In the meantime I would suggest once daily PPI in case this is reflux related. Please call with any additional questions or concerns during the remainder of the hospital admission History of Present Illness Reason for Consultation: epigastric pain Requesting Physician: Omar Attending Physician: Yehuda Nelson MD History of Present Illness 82 yo female w/ history of of T2DM, CKD3, GERD atypical chest pain, HTN, HLD, GERD, pernicious anemia who presents in the ED for evaluation of chest pain. Pt was seen and evaluated, chart reviewed. She notes she has intermittent bouts of CP. Typically resolves with nitro at home. This last occurred Monday evening. Went to bed. Woke up with severe left sided chest pain and pain radiating up her throat. Denies any nausea, vomiting, radiation to arm, numbness or tingingling associated with the pain. She took a nitro at home which greatly resolved her symptoms. In the ED, EKG unchanged from prior and troponin negative. Since admission, has been feeling well. no further episoeds of CP. She does note she uses OTC zantac for heart burn. Does not often have s/s of GERD. Will occasionally have burping/belching. No dysphagia Moves bowels well. no black or bloody stools/emesis. She was previously evaluted in GI clinic years ago for severe reflux and had EGD to rule out Seun's. Was to be on Pantoprazole but appears this was D/C years ago No fever, chills, CP, SOB. Colon 2014: Diverticulosis in the sigmoid colon. Normal mucosa in the entire examined colon. Biopsied. Fluid aspiration performed. Small lipoma in the transverse colon. Otherwise normal to the terminal ileum, with retroflexedviews of the ascending colon and rectum. EGD 2011: Normal upper third of esophagus, middle third of esophagusand lower third of esophagus.Z-line regular, 41 cm from the incisors. Biopsied.Gastric mucosal abnormality in the antrum characterized byerythema. This was biopsied.Normal examined duodenum. Mucosa was biopsied in 4 quadrants. Allergies Allergy/AdvReac Type Severity Reaction Status Date / Time Cipro Allergy Mild RASH Verified 04/12/17 08:27 ciprofloxacin Allergy Mild RASH Verified 06/11/18 11:06 metformin AdvReac Intermediate GI SYMPTOMS Verified 06/11/18 11:06 BENEDICT Inhibitors AdvReac Unknown COUGH Verified 06/11/18 11:06 Home Medications Home Medications Medication Instructions Recorded Confirmed Type acetaminophen [Tylenol Extra 1,000 mg PO Q8H PRN 06/11/18 06/11/18 History Strength] biotin 1 mg PO DAILY 06/11/18 06/11/18 History calcium carbonate [Calcium 500] 500 mg PO DAILY 06/11/18 06/11/18 History epoetin lou [Procrit] 10,000 unit SUBCUT UD 06/11/18 06/11/18 History ferrous sulfate 325 mg PO DAILY 06/11/18 06/11/18 History insulin asp prt-insulin aspart 6 unit SUBCUT BIDM 06/11/18 06/11/18 History [Novolog Mix 70-30FlexPen U-100] [id number]-[id number]-ast 1 cap PO QDL 06/11/18 06/11/18 History [krill oil] lactobacillus combination no.4 3,000 mmu cells PO QAM 06/11/18 06/11/18 History [Probiotic] levothyroxine 75 mcg PO QAM 06/11/18 06/11/18 History losartan 50 mg PO DAILY 06/11/18 06/11/18 History nitroglycerin 2 spray SUBLINGUAL UD PRN 06/11/18 06/11/18 History omega-3 fatty acids 500 mg PO DAILY@1200 06/11/18 06/11/18 History oxybutynin chloride 5 mg PO HS 06/11/18 06/11/18 History ranitidine HCl 150 mg PO BID 06/11/18 06/11/18 History simvastatin 40 mg PO HS 06/11/18 06/11/18 History tramadol 50 mg PO Q6H PRN 06/11/18 06/11/18 History vitamin B complex 1 tab PO DAILY 06/11/18 06/11/18 History Patient History Medical History Pernicious anemia (Chronic) Hypothyroidism (Chronic) GERD (gastroesophageal reflux disease) (Chronic) CKD (chronic kidney disease), stage III (Chronic) Dyslipidemia (Chronic) DORIS on CPAP (Chronic) DM type 2 (diabetes mellitus, type 2) (Chronic) 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) Chest pain (Acute) Surgical History S/P cholecystectomy (Resolved) History of dilation and curettage (Resolved) History of appendectomy (Resolved) History of knee surgery (Resolved) Family History Mother Heart disease Diabetes Social History marital status: Current Living Situation: Spouse current occupational status: retired Other Information That Helps Us Care for You: No Feels Safe at Home: Yes Safety Concerns: Feels Safe At This Time Smoking Status: Former smoker Do You Dip or Chew Tobacco: No Smoking End Date: >/= 31 years ago Second Hand Exposure: No Hx Alcohol Use: No Hx Substance Use: No Beliefs That Will Affect Care: Yazidism Yazidism Beliefs: Episcopal Preferred Language: Syrian Communication Ability: Effective Candy Maker Required: No Review of Systems Constitutional: no fever, no chills and no fatigue Respiratory: no cough, no chest congestion and no dyspnea Cardiovascular: no chest pain, no chest pain at rest and no dyspnea Gastrointestinal: + belching and + heartburn; no abdominal pain, no nausea, no vomiting, no coffee ground emesis, no hematemesis, no cramping, no excessive flatulence, no change in bowel habits, no blood in stools and no melena Physical Exam 2 Vital Signs (Past 24 Hours): Last Vital Signs Temp 36.2 C L 06/12/18 04:00 Pulse 57 L 06/12/18 04:00 Resp 11 L 06/12/18 04:00 BP 136/66 06/12/18 04:00 Pulse Ox 96 06/12/18 04:00 Constitutional: well nourished, cooperative and comfortable; no acute distress Respiratory: normal respiratory effort, lungs clear to auscultation Cardiovascular: RRR, no murmur, no edema Gastrointestinal (Abdomen): normal bowel sounds, soft, nontender, no hepatosplenomegaly Results & Data Laboratory Results 06/12/18 06/12/18 06/12/18 Range/Units 08:03 04:15 04:15 WBC 7.13 (4.8-10.8) K/uL RBC 3.59 L (4.2-5.4) M/uL Hgb 10.5 L (12.0-16.0) g/dL Hct 32.3 L (37-47) % MCV 90.0 (80-100) fL MCH 29.2 (25-34) pg MCHC 32.5 (32-36) g/dL RDW Std Deviation 42.6 (36.4-46.3) fL RDW Coeff of Elpidio 13.1 (11.5-14.5) % Plt Count 210 (130-400) K/uL MPV 10.0 (7.4-10.4) fL Immature Gran % (Auto) % Neut % (Auto) % Lymph % (Auto) % [place] % (Auto) % Eos % (Auto) % Baso % (Auto) % Immature Gran # (Auto) (0.00-0.02) K/uL Neut # (Auto) (1.4-6.5) K/uL Lymph # (Auto) (1.2-3.4) K/uL [place] # (Auto) (0.11-0.59) K/uL Eos # (Auto) (0-0.5) K/uL Baso # (Auto) (0-0.2) K/uL PT (9.0-12.0) Seconds INR (0.9-1.1) Sodium 141 (136-145) mmol/L Potassium 4.4 (3.5-5.1) mmol/L Chloride 110 H (98-107) mmol/L Carbon Dioxide 26 (21-32) mmol/L Anion Gap 5.0 (3-11) BUN 25 H (7-18) mg/dl Creatinine 1.37 H (0.6-1.2) mg/dl Est Cr Clr Drug Dosing 35.6 ml/min Est GFR ( Amer) 42.1 Est GFR (Non-Af Amer) 36.3 BUN/Creatinine Ratio 18.1 (10-20) Glucose 128 H (70-99) mg/dl POC Glucose 159 H (70-99) Calcium 8.7 (8.5-10.1) mg/dl Total Bilirubin (0.2-1) mg/dl AST (15-37) U/L ALT (12-78) U/L Alkaline Phosphatase (45-117) U/L Total Creatine Kinase (26-192) U/L CK-MB (CK-2) (0.5-3.6) ng/ml CK/CKMB % Calc (0-3.0) Troponin I (0-0.045) ng/ml Total Protein (6.4-8.2) gm/dl Albumin (3.4-5.0) gm/dl Globulin (2.5-4.0) gm/dl Albumin/Globulin Ratio (0.9-2) Lipase (73-393) U/L Nasal Screen MRSA (PCR) (Negative) 06/12/18 06/11/18 06/11/18 Range/Units 00:55 23:14 20:33 WBC (4.8-10.8) K/uL RBC (4.2-5.4) M/uL Hgb (12.0-16.0) g/dL Hct (37-47) % MCV (80-100) fL MCH (25-34) pg MCHC (32-36) g/dL RDW Std Deviation (36.4-46.3) fL RDW Coeff of Elpidio (11.5-14.5) % Plt Count (130-400) K/uL MPV (7.4-10.4) fL Immature Gran % (Auto) % Neut % (Auto) % Lymph % (Auto) % [place] % (Auto) % Eos % (Auto) % Baso % (Auto) % Immature Gran # (Auto) (0.00-0.02) K/uL Neut # (Auto) (1.4-6.5) K/uL Lymph # (Auto) (1.2-3.4) K/uL [place] # (Auto) (0.11-0.59) K/uL Eos # (Auto) (0-0.5) K/uL Baso # (Auto) (0-0.2) K/uL PT (9.0-12.0) Seconds INR (0.9-1.1) Sodium (136-145) mmol/L Potassium (3.5-5.1) mmol/L Chloride (98-107) mmol/L Carbon Dioxide (21-32) mmol/L Anion Gap (3-11) BUN (7-18) mg/dl Creatinine (0.6-1.2) mg/dl Est Cr Clr Drug Dosing ml/min Est GFR ( Amer) Est GFR (Non-Af Amer) BUN/Creatinine Ratio (10-20) Glucose (70-99) mg/dl POC Glucose 125 H 172 H (70-99) Calcium (8.5-10.1) mg/dl Total Bilirubin (0.2-1) mg/dl AST (15-37) U/L ALT (12-78) U/L Alkaline Phosphatase (45-117) U/L Total Creatine Kinase (26-192) U/L CK-MB (CK-2) (0.5-3.6) ng/ml CK/CKMB % Calc (0-3.0) Troponin I < 0.015 (0-0.045) ng/ml Total Protein (6.4-8.2) gm/dl Albumin (3.4-5.0) gm/dl Globulin (2.5-4.0) gm/dl Albumin/Globulin Ratio (0.9-2) Lipase (73-393) U/L Nasal Screen MRSA (PCR) (Negative) 06/11/18 06/11/18 06/11/18 Range/Units 17:54 16:44 16:39 WBC (4.8-10.8) K/uL RBC (4.2-5.4) M/uL Hgb (12.0-16.0) g/dL Hct (37-47) % MCV (80-100) fL MCH (25-34) pg MCHC (32-36) g/dL RDW Std Deviation (36.4-46.3) fL RDW Coeff of Elpidio (11.5-14.5) % Plt Count (130-400) K/uL MPV (7.4-10.4) fL Immature Gran % (Auto) % Neut % (Auto) % Lymph % (Auto) % [place] % (Auto) % Eos % (Auto) % Baso % (Auto) % Immature Gran # (Auto) (0.00-0.02) K/uL Neut # (Auto) (1.4-6.5) K/uL Lymph # (Auto) (1.2-3.4) K/uL [place] # (Auto) (0.11-0.59) K/uL Eos # (Auto) (0-0.5) K/uL Baso # (Auto) (0-0.2) K/uL PT (9.0-12.0) Seconds INR (0.9-1.1) Sodium (136-145) mmol/L Potassium (3.5-5.1) mmol/L Chloride (98-107) mmol/L Carbon Dioxide (21-32) mmol/L Anion Gap (3-11) BUN (7-18) mg/dl Creatinine (0.6-1.2) mg/dl Est Cr Clr Drug Dosing ml/min Est GFR ( Amer) Est GFR (Non-Af Amer) BUN/Creatinine Ratio (10-20) Glucose (70-99) mg/dl POC Glucose 100 H (70-99) Calcium (8.5-10.1) mg/dl Total Bilirubin (0.2-1) mg/dl AST (15-37) U/L ALT (12-78) U/L Alkaline Phosphatase (45-117) U/L Total Creatine Kinase (26-192) U/L CK-MB (CK-2) (0.5-3.6) ng/ml CK/CKMB % Calc (0-3.0) Troponin I < 0.015 (0-0.045) ng/ml Total Protein (6.4-8.2) gm/dl Albumin (3.4-5.0) gm/dl Globulin (2.5-4.0) gm/dl Albumin/Globulin Ratio (0.9-2) Lipase (73-393) U/L Nasal Screen MRSA (PCR) Negative (Negative) 06/11/18 06/11/18 06/11/18 Range/Units 11:25 11:25 11:25 WBC 6.97 (4.8-10.8) K/uL RBC 3.69 L (4.2-5.4) M/uL Hgb 10.8 L (12.0-16.0) g/dL Hct 33.5 L (37-47) % MCV 90.8 (80-100) fL MCH 29.3 (25-34) pg MCHC 32.2 (32-36) g/dL RDW Std Deviation 43.3 (36.4-46.3) fL RDW Coeff of Elpidio 13.3 (11.5-14.5) % Plt Count 211 (130-400) K/uL MPV 10.3 (7.4-10.4) fL Immature Gran % (Auto) 0.1 % Neut % (Auto) 60.6 % Lymph % (Auto) 27.1 % [place] % (Auto) 8.6 % Eos % (Auto) 3.0 % Baso % (Auto) 0.6 % Immature Gran # (Auto) 0.01 (0.00-0.02) K/uL Neut # (Auto) 4.22 (1.4-6.5) K/uL Lymph # (Auto) 1.89 (1.2-3.4) K/uL [place] # (Auto) 0.60 H (0.11-0.59) K/uL Eos # (Auto) 0.21 (0-0.5) K/uL Baso # (Auto) 0.04 (0-0.2) K/uL PT 10.5 (9.0-12.0) Seconds INR 1.0 (0.9-1.1) Sodium 140 (136-145) mmol/L Potassium 4.1 (3.5-5.1) mmol/L Chloride 107 (98-107) mmol/L Carbon Dioxide 24 (21-32) mmol/L Anion Gap 9.0 (3-11) BUN 24 H (7-18) mg/dl Creatinine 1.52 H (0.6-1.2) mg/dl Est Cr Clr Drug Dosing 32.6 ml/min Est GFR ( Amer) 37.1 Est GFR (Non-Af Amer) 32.0 BUN/Creatinine Ratio 15.9 (10-20) Glucose 247 H (70-99) mg/dl POC Glucose (70-99) Calcium 8.9 (8.5-10.1) mg/dl Total Bilirubin 0.6 (0.2-1) mg/dl AST 25 (15-37) U/L ALT 47 (12-78) U/L Alkaline Phosphatase 53 (45-117) U/L Total Creatine Kinase 140 (26-192) U/L CK-MB (CK-2) 2.4 (0.5-3.6) ng/ml CK/CKMB % Calc 1.7 (0-3.0) Troponin I < 0.015 (0-0.045) ng/ml Total Protein 7.2 (6.4-8.2) gm/dl Albumin 3.3 L (3.4-5.0) gm/dl Globulin 3.9 (2.5-4.0) gm/dl Albumin/Globulin Ratio 0.8 L (0.9-2) Lipase 88 (73-393) U/L Nasal Screen MRSA (PCR) (Negative)
[2018-06-12] MEDS ORDERED: DOBUTamine HCL 12.5 MG/ML 20 ML VIAL IV ONE (11:22)
[2018-06-12] MEDS ORDERED: METOPROLOL TARTRATE 1 MG/ML VIAL IV ONE ×2 (11:22→11:23)
[2018-06-12] MEDS ORDERED: ATROPINE SULFATE 0.1 MG/ML 10ML SYR IV ONE (11:22)
[2018-06-12] MEDS ORDERED: PERFLUTREN LIPID MICROSPHERE (DEFINITY) IV ONE (11:54)
[2018-06-12] MEDS ORDERED: OMEGA-3 (PURIFIED FISH OIL) 1 GM CAP PO SCH (12:00)
[2018-06-12] MEDS ORDERED: AMLODIPINE BESYLATE 5 MG TAB PO SCH (14:00)
--- NOTE | 2018-06-12 14:05 | Cardiology Progress Note ---
Date of Service June 12, 2018 Assessment & Plan (1) Chest pain: Patient symptoms have atypical features not exacerbated by exertion predominately occur when lying down at night. EKGs and enzymes are negative to date per signs or symptoms of acute ischemia EKG this morning demonstrated T wave inversion in anterior precordial leads. Dobutamine stress echocardiography negative for stress-induced ischemia heart rate to 90% age-predicted maximum. No EKG changes normal resting and stress LV function study was notable for hypertension. Recommendations: Continue losartan, add amlodipine 2.5 mg/day for hypertension control. GI recommendations as noted. If symptoms persist or unexplained diagnostic cardiac catheterization would be next clinical course. Initial cardiac evaluation negative (2) Dyslipidemia: (3) DORIS on CPAP: (4) DM type 2 (diabetes mellitus, type 2): Physical Exam 2 Vital Signs (Past 24 Hours): Last Vital Signs Temp 36.8 C 06/12/18 12:00 Pulse 58 L 06/12/18 12:00 Resp 16 06/12/18 12:00 BP 126/82 06/12/18 12:00 Pulse Ox 97 06/12/18 12:00 Physical Exam: Physical Exam: Patient is elderly age-appropriate female currently no acute distress eating dinner. Denies chest pain or discomfort vital signs are as above HEENT exam is normocephalic and atraumatic overall skin complexion is pale pupils equal round reactive accommodation nares without discharge throat was clear Neck thin there is no palpable lymphadenopathy or jugular venous distention Lungs: Predominately clear to auscultation without rhonchi rales or wheeze Cardiovascular exam: Regular with normal S1-S2 there is no audible murmur rub Abdomen: Exam feels full but no palpable hepatomegaly or mass i no audible bruit Extremities: Intact distal pulses there is no peripheral edema Neuro patient is alert answering questions appropriately with fair recollection of most details Results & Data Laboratory Results Laboratory Results - last 24 hr 06/11/18 06/11/18 06/11/18 11:25 16:39 16:44 WBC RBC Hgb Hct MCV MCH MCHC RDW Std Deviation RDW Coeff of Elpidio Plt Count MPV PT 10.5 INR 1.0 Sodium Potassium Chloride Carbon Dioxide Anion Gap BUN Creatinine Est Cr Clr Drug Dosing Est GFR ( Amer) Est GFR (Non-Af Amer) BUN/Creatinine Ratio Glucose POC Glucose 100 H Calcium Troponin I Nasal Screen MRSA (PCR) Negative 06/11/18 06/11/18 06/11/18 17:54 20:33 23:14 WBC RBC Hgb Hct MCV MCH MCHC RDW Std Deviation RDW Coeff of Elpidio Plt Count MPV PT INR Sodium Potassium Chloride Carbon Dioxide Anion Gap BUN Creatinine Est Cr Clr Drug Dosing Est GFR ( Amer) Est GFR (Non-Af Amer) BUN/Creatinine Ratio Glucose POC Glucose 172 H Calcium Troponin I < 0.015 < 0.015 Nasal Screen MRSA (PCR) 06/12/18 06/12/18 06/12/18 00:55 04:15 04:15 WBC 7.13 RBC 3.59 L Hgb 10.5 L Hct 32.3 L MCV 90.0 MCH 29.2 MCHC 32.5 RDW Std Deviation 42.6 RDW Coeff of Elpidio 13.1 Plt Count 210 MPV 10.0 PT INR Sodium 141 Potassium 4.4 Chloride 110 H Carbon Dioxide 26 Anion Gap 5.0 BUN 25 H Creatinine 1.37 H Est Cr Clr Drug Dosing 35.6 Est GFR ( Amer) 42.1 Est GFR (Non-Af Amer) 36.3 BUN/Creatinine Ratio 18.1 Glucose 128 H POC Glucose 125 H Calcium 8.7 Troponin I Nasal Screen MRSA (PCR) 06/12/18 06/12/18 08:03 12:09 WBC RBC Hgb Hct MCV MCH MCHC RDW Std Deviation RDW Coeff of Elpidio Plt Count MPV PT INR Sodium Potassium Chloride Carbon Dioxide Anion Gap BUN Creatinine Est Cr Clr Drug Dosing Est GFR ( Amer) Est GFR (Non-Af Amer) BUN/Creatinine Ratio Glucose POC Glucose 159 H 163 H Calcium Troponin I Nasal Screen MRSA (PCR) ECG Additional Comments: 12-JUN-2018 07:24:13 [facility] Sinus bradycardia with marked sinus arrhythmia T wave abnormality, consider anterolateral ischemia Abnormal ECG When compared with ECG of 11-JUN-2018 10:50, T wave inversion more evident in Anterolateral leads Confirmed by ALIYAH ROJO ([id number]) on 06/12/2018 12:42:27 PM
--- NOTE | 2018-06-12 16:39 | Hospitalist Progress Note ---
Date of Service June 12, 2018 Assessment & Plan (1) Chest pain: Per admitting [facility] notes This is an 82yo F with a PMH of DM II, atypical chest pain, HTN, HLD, GERD, pernicious anemia, CKD III and other medical problems listed below who presents after an episode of chest pain during the night. -Atypical in presentation with epigastric and left chest wall pain, no associated N/V/SOB or diaphoresis -Occurred at rest in middle of night, resolved with ntg -Chest pain on lying down-Angina Decubitus -R/o ACS; risk factors include DM II, HTN, HLD -EKG with non-specific T wave changes in lateral leads, which was previously noted on November 2017 EKG -Initial troponin negative -Stress exercise echo performed in Dec 2017 without inducible ischemia. 2D echo with preserved EF of 55% -Trend serial cardiac enzymes -Discussed with cardiology. Plan to rule out overnight, NPO after midnight for possible stress test in AM 06/12/[address] Howell of Cardiology Service s/p Dobutamine Stress Test: negative Dobutamine stress echocardiography negative for stress-induced ischemia heart rate to 90% age-predicted maximum. No EKG changes normal resting and stress LV function study was notable for hypertension. - Amlodipine 2.5mg po daily recommended for BP control ff up with PCP Mon06/15/18 (2) GERD (gastroesophageal reflux disease): Possible component of epigastric/chest discomfort -Denies burning pain, denies consumption of fatty/acid foods prior to episode -Continue H2 suresh - GI consulted Dr. Posada recommend Protonix po daily outpatient EGD (3) Pernicious anemia: Hgb at baseline of 10 -Receives monthly procrit injections, most recent dose 06/04/18 -Continue supplements (4) Anemia due to chronic kidney disease: Hgb at baseline of 10 -Receives monthly procrit injections, most recent dose 06/04/18 -Continue supplements (5) DM type 2 (diabetes mellitus, type 2): A1c of 8 on 06/04 - continue usual medications (6) CKD (chronic kidney disease), stage III: Kidney function at baseline (7) Hypothyroidism: Continue levothyroxine (8) Dyslipidemia: Continue statin (9) DORIS on CPAP: CPAP HS Dispo d/c home ff up with PCP Mon06/15/18 Subjective ff up for chest pain seen resting in bed, comfortable chest pain has resolved no epigastric pain, nausea, changes with BM no dyspnea, dizziness no other symptoms reevaluated in the afternoon states she feels fine , back to baseline states she is ready and would like to be discharged today Physical Exam 2 Vital Signs (Past 24 Hours): Last Vital Signs Temp 36.8 C 06/12/18 12:00 Pulse 58 L 06/12/18 12:00 Resp 16 06/12/18 12:00 BP 126/82 06/12/18 12:00 Pulse Ox 97 06/12/18 12:00 Physical Exam: General- oriented x 3, not in distress, speaks in sentences with no effort or accessory muscle use Eyes- anicteric Neck- no JVD Lungs- clear breath sounds bilaterally, no rales/wheezes Heart- normal rate, regular rhythm; no murmurs Abdomen- normal bowel sounds, nondistended, soft, nontender Extremities- no pretibial edema, no calf tenderness Neuro- alert, oriented x 3; no gross focal neurologic deficits Skin- warm & dry Results & Data Laboratory Results Laboratory Results - last 24 hr 06/11/18 06/11/18 06/11/18 11:25 16:39 16:44 WBC RBC Hgb Hct MCV MCH MCHC RDW Std Deviation RDW Coeff of Elpidio Plt Count MPV PT 10.5 INR 1.0 Sodium Potassium Chloride Carbon Dioxide Anion Gap BUN Creatinine Est Cr Clr Drug Dosing Est GFR ( Amer) Est GFR (Non-Af Amer) BUN/Creatinine Ratio Glucose POC Glucose 100 H Calcium Troponin I Nasal Screen MRSA (PCR) Negative 06/11/18 06/11/18 06/11/18 17:54 20:33 23:14 WBC RBC Hgb Hct MCV MCH MCHC RDW Std Deviation RDW Coeff of Elpidio Plt Count MPV PT INR Sodium Potassium Chloride Carbon Dioxide Anion Gap BUN Creatinine Est Cr Clr Drug Dosing Est GFR ( Amer) Est GFR (Non-Af Amer) BUN/Creatinine Ratio Glucose POC Glucose 172 H Calcium Troponin I < 0.015 < 0.015 Nasal Screen MRSA (PCR) 06/12/18 06/12/18 06/12/18 00:55 04:15 04:15 WBC 7.13 RBC 3.59 L Hgb 10.5 L Hct 32.3 L MCV 90.0 MCH 29.2 MCHC 32.5 RDW Std Deviation 42.6 RDW Coeff of Elpidio 13.1 Plt Count 210 MPV 10.0 PT INR Sodium 141 Potassium 4.4 Chloride 110 H Carbon Dioxide 26 Anion Gap 5.0 BUN 25 H Creatinine 1.37 H Est Cr Clr Drug Dosing 35.6 Est GFR ( Amer) 42.1 Est GFR (Non-Af Amer) 36.3 BUN/Creatinine Ratio 18.1 Glucose 128 H POC Glucose 125 H Calcium 8.7 Troponin I Nasal Screen MRSA (PCR) 06/12/18 06/12/18 08:03 12:09 WBC RBC Hgb Hct MCV MCH MCHC RDW Std Deviation RDW Coeff of Elpidio Plt Count MPV PT INR Sodium Potassium Chloride Carbon Dioxide Anion Gap BUN Creatinine Est Cr Clr Drug Dosing Est GFR ( Amer) Est GFR (Non-Af Amer) BUN/Creatinine Ratio Glucose POC Glucose 159 H 163 H Calcium Troponin I Nasal Screen MRSA (PCR)
--- NOTE | 2018-06-12 16:55 | Discharge Summary ---
Date of Service June 12, 2018 Admission HPI Per Admitting Provider This is an 82yo F with a PMH of DM II, atypical chest pain, HTN, HLD, GERD, pernicious anemia, CKD III and other medical problems listed below who presents after an episode of chest pain during the night. Patient was awakened around 2: 30 AM with epigastric pain with extension over to left chest that was sharp and constant. Associated with left arm pain but no shortness of breath, nausea, vomiting or diaphoresis. Patient took 2 sprays of ntg and pain in chest and left arm resolved. Denies eating fatty or acidic foods last evening. This morning, patient was climbing a flight of stairs when noted that she became visibily short of breath. She states that this is unusual for her but also admits to significantly less walking/activity over the past month due to cold weather. Came to ED for further evaluation. No longer experiencing chest discomfort or shortness of breath. Feels fatigued. + R calf tenderness. Denies fever, chills, palpitations, SOB, orthopnea, PND, weight gain, nausea, vomiting or abdominal pain. Was evaluated by cardiology in 2015 and chest pain was thought to be atypical. PCP Dr. Green arranged for 2D echo in Dec 2017 which showed preserved EF of 55% and exercise stress echo performed at this time was negative for inducible ischemia. Per , patient has had 2 other similar instances of chest pain during the night over the past few months that has resolved with ntg. Patient does not recall these events. EKG with non-specific T wave changes in lateral leads, which was previously noted on November [address] Howell and plan for cardiac rule out overnight and possible stress test in AM. Admission Exam Per Admitting Provider Vital Signs (Past 24 Hours): Last Vital Signs Temp 36.6 C 06/11/18 10:29 Pulse 59 L 06/11/18 12:00 Resp 18 06/11/18 12:00 BP 148/66 H 06/11/18 12:00 Pulse Ox 97 06/11/18 12:00 Physical Exam: General Appearance: WD/WN, no apparent distress, resting comfortably Head: normocephalic, atraumatic Eyes: normal inspection, PERRL, EOMI ENT: hearing grossly normal, pharynx normal (moist mucous membranes) Neck: supple, no JVD, no adenopathy Respiratory/Chest: No chest wall tenderness. Lungs clear to auscultation. No wheezes, rales or rhonci. No respiratory distress or accessory muscle use Cardiovascular: regular rate, rhythm, no murmur appreciated, normal peripheral pulses Abdomen/GI: normal bowel sounds, soft, non-tender to palpation Extremities/Musculoskelatal: normal inspection, + R calf tenderness, normal capillary refill, no pedal edema Neurologic/Psych: alert, normal mood/affect, oriented x 3 Skin: normal color, warm/dry Principal Diagnosis ATYPICAL CHEST PAIN Discharge Exam Vital Signs (Past 24 Hours): Last Vital Signs Temp 36.8 C 06/12/18 12:00 Pulse 58 L 06/12/18 12:00 Resp 16 06/12/18 12:00 BP 126/82 06/12/18 12:00 Pulse Ox 97 06/12/18 12:00 Physical Exam: General- oriented x 3, not in distress, speaks in sentences with no effort or accessory muscle use Eyes- anicteric Neck- no JVD Lungs- clear breath sounds bilaterally, no rales/wheezes Heart- normal rate, regular rhythm; no murmurs Abdomen- normal bowel sounds, nondistended, soft, nontender Extremities- no pretibial edema, no calf tenderness Neuro- alert, oriented x 3; no gross focal neurologic deficits Skin- warm & dry Discharge Data Allergies Allergy/AdvReac Type Severity Reaction Status Date / Time Cipro Allergy Mild RASH Verified 04/12/17 08:27 ciprofloxacin Allergy Mild RASH Verified 06/11/18 11:06 metformin AdvReac Intermediate GI SYMPTOMS Verified 06/11/18 11:06 BENEDICT Inhibitors AdvReac Unknown COUGH Verified 06/11/18 11:06 Consultations 06/11/18 12:24 ED Decision to Admit Stat 06/11/18 12:37 ED Decision to Admit Stat 06/11/18 15:50 Consult Cardiology Routine 06/12/18 08:49 Consult Gastroenterology Routine Ordered Studies 06/11/18 13:46 US venous doppler LE BI Urgent ULTRASOUND BILATERAL LOWER EXTREMITY VENOUS CLINICAL HISTORY: Leg pain. COMPARISON STUDY: Bilateral lower extremity venous ultrasound dated 07/22/2013. TECHNIQUE: Real-time, grayscale, and color Doppler sonography of the deep veins of the right and left lower extremity was performed from the inguinal crease to the calf. Compression and augmentation were utilized. FINDINGS: There is no sonographic evidence of deep venous thrombosis identified in the right or left lower extremity. The common femoral, superficial femoral, and popliteal veins are patent and normally compressible bilaterally. The greater saphenous vein and the profunda femoris vein at the junction with the common femoral vein are clear in both legs. The visualized calf veins are patent bilaterally. IMPRESSION: There is no sonographic evidence of deep venous thrombosis identified in the right or left lower extremity. Hospital Course (1) Chest pain: Per admitting SVC notes This is an 82yo F with a PMH of DM II, atypical chest pain, HTN, HLD, GERD, pernicious anemia, CKD III and other medical problems listed below who presents after an episode of chest pain during the night. -Atypical in presentation with epigastric and left chest wall pain, no associated N/V/SOB or diaphoresis -Occurred at rest in middle of night, resolved with ntg -Chest pain on lying down-Angina Decubitus -R/o ACS; risk factors include DM II, HTN, HLD -EKG with non-specific T wave changes in lateral leads, which was previously noted on November 2017 EKG -Initial troponin negative -Stress exercise echo performed in Dec 2017 without inducible ischemia. 2D echo with preserved EF of 55% -Trend serial cardiac enzymes -Discussed with cardiology. Plan to rule out overnight, NPO after midnight for possible stress test in AM 06/12/[address] Howell of Cardiology Service s/p Dobutamine Stress Test: negative Dobutamine stress echocardiography negative for stress-induced ischemia heart rate to 90% age-predicted maximum. No EKG changes normal resting and stress LV function study was notable for hypertension. - Amlodipine 2.5mg po daily recommended for BP control ff up with PCP Mon06/15/18 (2) GERD (gastroesophageal reflux disease): Possible component of epigastric/chest discomfort -Denies burning pain, denies consumption of fatty/acid foods prior to episode -Continue H2 suresh - GI consulted Dr. Posada recommend Protonix po daily outpatient EGD (3) Pernicious anemia: Hgb at baseline of 10 -Receives monthly procrit injections, most recent dose 06/04/18 -Continue supplements (4) Anemia due to chronic kidney disease: Hgb at baseline of 10 -Receives monthly procrit injections, most recent dose 06/04/18 -Continue supplements (5) DM type 2 (diabetes mellitus, type 2): A1c of 8 on 06/04 - continue usual medications (6) CKD (chronic kidney disease), stage III: Kidney function at baseline (7) Hypothyroidism: Continue levothyroxine (8) Dyslipidemia: Continue statin (9) DORIS on CPAP: CPAP HS Dispo d/c home ff up with PCP Mon06/15/18 Total Time Total Time Spent Total Time Spent (In Minutes): 40 minutes Discharge Plan Discharge Items Patient Disposition: Home - Self-Care Reason For Visit: CHEST PAIN Discharge Diagnosis: CHEST PAIN Discharge Goals: Diagnostic testing Activity: As commented below Activity Comment: NO HEAVY EXERTION UNTIL RE-EVALUATED BY PRIMARY CARE PHYSICIAN Lifting: Wait until after follow-up appointment Exercise/Sports: Wait until after follow-up appointment Driving/Machine Use Comment: NO DRIVING UNTIL RE-EVALUATED BY PRIMARY CARE PHYSICIAN Non-emergency contact: Primary Care Provider Call non-emergency contact if: you have any medication questions, your symptoms worsen, your pain is not controlled, your pain is worsening, your pain is unusual for you, your pain is concerning for you and you have a fever Follow-up/Referrals: Capo Green MD [Primary Care Provider] - 06/15/18 12:15 pm Diet: Heart Healthy Addtl Provider Instructions: PLEASE FOLLOW UP WITH PRIMARY CARE PHYSICIAN NOTED ABOVE. PLEASE REVIEW YOUR NEW MEDICATION LIST AND FOLLOW INSTRUCTIONS CAREFULLY. CALL PRIMARY CARE PHYSICIAN OR RETURN TO ER IMMEDIATELY IF WITH RECURRENCE OF SYMPTOMS. Prescriptions: New amlodipine [Norvasc] 5 mg Tablet 2.5 mg PO QAM 30 Days Qty: 15 RF: 0 pantoprazole [Protonix] 40 mg tablet,delayed release (DR/EC) 40 mg PO DAILY Qty: 30 RF: 0 Continue losartan 50 mg tablet 50 mg PO DAILY RF: 0 acetaminophen [Tylenol Extra Strength] 500 mg Tablet 1,000 mg PO Q8H PRN (Reason: pain/fever) RF: 0 simvastatin 40 mg tablet 40 mg PO HS RF: 0 levothyroxine 75 mcg tablet 75 mcg PO QAM RF: 0 calcium carbonate [Calcium 500] 500 mg calcium (1,250 mg) Tablet 500 mg PO DAILY RF: 0 ferrous sulfate 325 mg (65 mg iron) Tablet 325 mg PO DAILY RF: 0 ranitidine HCl 150 mg tablet 150 mg PO BID RF: 0 vitamin B complex Tablet 1 tab PO DAILY RF: 0 epoetin lou [Procrit] 10,000 unit/mL solution 10,000 unit subcut UD RF: 0 insulin asp prt-insulin aspart [Novolog Mix 70-30FlexPen U-100] 100 unit/mL ( 70-30) insulin pen 6 unit subcut BIDM RF: 0 lactobacillus combination no.4 [Probiotic] 3 billion cell Capsule 3,000 mmu cells PO QAM RF: 0 [id number]-tev-dzspdsz-ast [krill oil] 053-563-55-75 mg Capsule 1 cap PO QDL RF: 0 tramadol 50 mg Tablet 50 mg PO Q6H PRN (Reason: Pain) RF: 0 nitroglycerin 400 mcg/spray spray,non-aerosol 2 spray Sublingual UD PRN (Reason: Chest Pain) RF: 0 oxybutynin chloride 5 mg Tablet 5 mg PO HS RF: 0 biotin 1 mg Tablet 1 mg PO DAILY RF: 0 omega-3 fatty acids 500 mg Capsule 500 mg PO DAILY@1200 RF: 0 Stand-Alone Forms: [facility] Discharge Orders: Discharge Order (Routine); Ordered 06/12/18 Ordered By: Yehuda Nelson Admission Data Admit Date/Time: 06/11/18 14:07 Attending Provider: Yehuda Nelson Admit Provider: Mic Ochoa Primary Care Provider: Capo Green Other Providers: Mic Ochoa ; Eleazar Howell ; Bandar Cardenas ; Dimitris Toribio ; Doreen Crews ; Kale Johns ; Steve Posada ; Gurinder Streeter ; Zulay Paul ; Gómez Ramirez ; Emile Smith ; Emily Umanzor ; Shaila Roca ; Lily Gan ; Eden Velasquez ; Murphy Regan Service: Telemetry
== END 2018-06-12 17:48 | disposition home or self-care (01) ==
LOC: 1E 10:25 → ED 10:25 → 1E 15:28

== ENCOUNTER 2019-03-27 14:29 | Observation (INO) ==
--- NOTE | 2019-03-27 14:55 | XRay Report ---
XR chest 1V portable CLINICAL HISTORY: 83 years-old Female presenting with Chest Pain. TECHNIQUE: Portable upright AP view of the chest was obtained. COMPARISON: 06/11/2018. FINDINGS: Atherosclerosis of the aortic arch. Cardiac silhouette normal in size. Prominent left pericardial fat pad. No new focal opacity. No large effusion or pneumothorax. Degenerative changes of the thoracic s pine and right glenohumeral joint. Upper abdomen normal. IMPRESSION: 1. No acute cardiopulmonary disease. Electronically signed by: Milton Ryan M.D. 03/27/2019 2:54 PM
[2019-03-27 14:58] LABS: Basophils # (auto) 0.05 K/uL (0-0.2); Basophils % (auto) 0.7 %; Eosinophils # (auto) 0.16 K/uL (0-0.5); Eosinophils % (auto) 2.2 %; Hematocrit (blood only) 35.2 % (37-47); Hemoglobin 11.6 g/dL (12.0-16.0); Lymphocytes # (auto) 2.02 K/uL (1.2-3.4); Lymphocytes % (auto) 27.2 %; Mean Corpuscular Hemoglobin 30.1 pg (25-34); Mean Corpuscular Volume 91.2 fL (80-100); Mean Platelet Volume 10.5 fL (7.4-10.4); Monocytes # (auto) 0.72 K/uL (0.11-0.59); Monocytes % (auto) 9.7 %; Neutrophils # (auto) 4.47 K/uL (1.4-6.5); Neutrophils % (auto) 60.2 %; Platelet Count 197 K/uL (130-400); RDW Coefficient of Variation 13.1 % (11.5-14.5); RDW Standard Deviation 43.6 fL (36.4-46.3); Red Blood Count 3.86 M/uL (4.2-5.4); White Blood Count 7.42 K/uL (4.8-10.8)
[2019-03-27 15:09] LABS: INR 1.1 (0.9-1.1); Partial Thromboplastin Ratio 0.9; Partial Thromboplastin Time 24.6 Seconds (21.0-31.0); Prothrombin Time 10.9 Seconds (9.0-12.0)
[2019-03-27 15:26] LABS: Alanine Aminotransferase 57 U/L (12-78); BUN Creatinine Ratio 16.6 (10-20); Blood Urea Nitrogen 29 mg/dl (7-18); Calcium 9.8 mg/dl (8.5-10.1); Carbon Dioxide 26 mmol/L (21-32); Chloride 107 mmol/L (98-107); Creatinine Clr Calc Pharmacy 25.7 ml/min; Est GFR (African American) 30.9; Est GFR (Non-African American) 26.7; Glucose 109 mg/dl (70-99); Lipase 247 U/L (73-393); Potassium 4.4 mmol/L (3.5-5.1); Sodium 139 mmol/L (136-145)
[2019-03-27 15:31] LABS: Albumin Globulin Ratio 1.1 (0.9-2); Alkaline Phosphatase 51 U/L (45-117); Aspartate Aminotransferase 35 U/L (15-37); Bilirubin,Total 0.9 mg/dl (0.2-1); Globulin 3.7 gm/dl (2.5-4.0); Total Protein 7.7 gm/dl (6.4-8.2); Troponin I < 0.015 ng/ml (0-0.045)
--- NOTE | 2019-03-27 17:01 | History & Physical Report ---
Date of Service March 27, 2019 Assessment & Plan (1) Chest pain: (2) Abnormal ECG: This is a 83-year-old female who has significant past medical history of T2 DM, HTN, HLD, CKD stage IIIB-IV, DORIS on CPAP, anemia of renal disease, hypothyroidism, history of monoclonal IgG lambda paraproteinemia, who presents to [facility] ED at the referral of PCP secondary to episode of chest pain yesterday x1 hour and ECG changes. Patient was seen in outpatient provider clinic by PAC. There was concern for anterior T wave changes and she was referred to ED for further evaluation. In ED her CBC was remarkable for chronic anemia of 11.6 and 35.2. Her BUN and creatinine elevated at 29 and 1.76 consistent with her CKD stage III-IV. Initial troponin was WNL, lipase WNL and EKG reveals sinus bradycardia with T wave inversions minimally in V2. Reviewing EKGs from office visit today 03/27 revealed sinus bradycardia with a more pronounced T wave inversion in V2 through V4. These T wave inversions were also noted on EKG 06/12/2018. 83 yr old F with risk factors of age, gender, T2DM, HTN, DORIS Pt had dobutamine stress echo 06/2018 negative for ischemia admit to PCU for cardiac evaluation and ACS r/o cycle troponin q6hr obtain echocardiogram consult cardiology repeat ecg fasting lipid panel/a1c in a.m. gentle hydration tonight NPO after midnight place on PPI for GI prophylaxis in event sx GI related Sx also potentially MSK given recent hx of lifting and lower back pain (3) Low back pain: L lower back pain, reproducible apply heat bid-tid APAP prn (4) DM type 2 (diabetes mellitus, type 2): A1c 6.4 on 01/18/19 A1c in a.m. Hold outpatient Januvia She also takes once weekly Trulicity NovoLog sliding scale per protocol (5) HTN (hypertension): Blood pressure currently elevated in ED 166/77 On losartan as outpatient Treat accordingly (6) CKD (chronic kidney disease), stage III: Baseline creatinine 1.7 BUN/creatinine 29/1.76 today Gentle hydration overnight in event need for cardiac cath in a.m. (7) Anemia due to chronic kidney disease: H&H stable at 11.6 and 35.2 Monitor CBC Procrit as outpatient (8) Dyslipidemia: Continue statin Lipid panel in a.m. (9) DORIS on CPAP: CPAP at bedtime (10) Hypothyroidism: Continue levothyroxine (11) DVT prophylaxis: SCD/TEDS monitor daily need for chemical prophylaxis Disposition: admit to PCU Follow up: PCP Dr. Green upon discharge Patient was seen and examined in collaboration with Dr. Ochoa, please see addedum History of Present Illness Chief Complaint: Chest pain x1 hour 1 day ago. Primary Care Provider: Capo Green MD This is a 83-year-old female who has significant past medical history of T2 DM, HTN, HLD, CKD stage IIIB-IV, DORIS on CPAP, anemia of renal disease, h ypothyroidism, history of monoclonal IgG lambda paraproteinemia, who presents to [facility] ED at the referral of PCP secondary to episode of chest pain yesterday x1 hour and ECG changes. She elicits yesterday she was sitting down reading a book when she developed precordial chest pain, described as "ache," rated 4/10, not made worse with deep breathing, movement, leaning forward, nothing made better, resolved on own with associated upper and lower back pain. She had upper back pain which has now resolved, but continues to have residual left lower back pain. elicits she lifted something last and feels it may be related to that. She has never had anything similar in the past. Denies any associated diaphoresis, nausea, vomiting, shortness of breath, palpitations. She denies any prior history of CAD or UT. Given age she is fairly independent. She walks daily. She denies any exertional dyspnea or chest pain with exertion. She denies any orthopnea or PND. She is compliant with her CPAP at bedtime. She denies any recent illness, fever, sweats, lightheadedness, dizziness, syncope, cough, hemoptysis, nausea, vomiting, abdominal pain, dysuria, increased urgency or frequency with urination, hematuria. Over the past 3 days she has been feeling more constipated, but otherwise denies melena or hematochezia. Her appetite has otherwise been decreased, no known weight loss. Of significance pt did have recent confinement 06/2018 for chest pain and underwent dobutamine stress echo which was negative for ischemia. Medical records in [facility] were reviewed. Patient was seen in outpatient provider clinic by PAC. There was concern for anterior T wave changes and she was referred to ED for further evaluation. In ED her CBC was remarkable for chronic anemia of 11.6 and 35.2. Her BUN and creatinine elevated at 29 and 1.76 consistent with her CKD stage III-IV. Initial troponin was WNL, lipase WNL and EKG reveals sinus bradycardia with T wave inversions minimally in V2. Reviewing EKGs from office visit today 03/27 revealed sinus bradycardia with a more pronounced T wave inversion in V2 through V4. These T wave inversions were also noted on EKG 06/12/2018. Allergies Allergy/AdvReac Type Severity Reaction Status Date / Time Cipro Allergy Mild RASH Verified 04/12/17 08:27 ciprofloxacin Allergy Mild RASH Verified 03/27/19 15:46 metformin AdvReac Intermediate GI SYMPTOMS Verified 03/27/19 15:46 BENEDICT Inhibitors AdvReac Unknown COUGH Verified 03/27/19 15:46 Home Medications Home Medications Medication Instructions Recorded Confirmed Type Probiotic 0 mmu cells PO QAM 06/11/18 03/27/19 History acetaminophen [Tylenol Extra 1,000 mg PO Q8H PRN 06/11/18 03/27/19 History Strength] biotin 1 mg PO DAILY 06/11/18 03/27/19 History levothyroxine 75 mcg PO QAM 06/11/18 03/27/19 History losartan 25 mg PO DAILY 06/11/18 03/27/19 History nitroglycerin 2 spray SUBLINGUAL DIRECTED PRN 06/11/18 03/27/19 History omega-3 fatty acids 500 mg PO DAILY@1200 06/11/18 03/27/19 History ranitidine HCl 150 mg PO BID 06/11/18 03/27/19 History simvastatin 40 mg PO HS 06/11/18 03/27/19 History aspirin 81 mg PO HS 03/27/19 03/27/19 History dulaglutide [Trulicity] 0.75 mg SUBCUT WK 03/27/19 03/27/19 History epoetin lou [Procrit] 10,000 unit SUBCUT MONTHLY 03/27/19 03/27/19 History oxybutynin chloride 5 mg PO HS 03/27/19 03/27/19 History sitagliptin [Januvia] 25 mg PO BID 03/27/19 03/27/19 History Past Med/Surg History Medical History (Updated 03/27/19 @ 17:27 by Luz Marina Us PA-C) Anemia due to chronic kidney disease CKD (chronic kidney disease), stage III DM type 2 (diabetes mellitus, type 2) Dyslipidemia GERD (gastroesophageal reflux disease) HTN (hypertension) Hypothyroidism IgM lambda paraproteinemia DORIS on CPAP Pernicious anemia Surgical History (Updated 03/27/19 @ 17:06 by Luz Marina Us PA-C) History of appendectomy History of dilation and curettage History of knee surgery History of total bilateral knee replacement (TKR) S/P cholecystectomy Family History Mother , 85 Heart disease Diabetes Father , 65 Pancreatic cancer Social History (Updated 03/27/19 @ 17:07 by Luz Marina Us PA-C) Preferred Language: Frisian Communication Ability: Effective Slip Cover Cutter Required: No Beliefs That Will Affect Care: None marital status: Current Living Situation: Spouse Current Living Situation Comment: at home current occupational status: retired Other Information That Helps Us Care for You: No Feels Safe at Home: Yes Safety Concerns: Feels Safe At This Time Smoking Status: Former smoker Number of Years Since Quit: 30 ; Second Hand Exposure: No ; Hx Alcohol Use: No Hx Substance Use: No Review of Systems Review of Systems: All systems reviewed & are unremarkable except as noted in HPI & below Physical Exam Physical Exam: Constitutional: WD/WN, vitals as above, NAD, sitting up in bed, pleasant, conversing easily Head: Normocephalic, Atraumatic Eyes: PERRL, conjunctivae normal, anicteric sclerae ENMT: external ear and nose normal, oropharynx normal Neck: trachea midline, no thyromegaly normal visual inspection Respiratory: normal respiratory effort, lungs clear to auscultation, no wheeze, rales, rhonchi. Normal insp/exp effort, no accessory muscle use Cardiovascular: RRR, 1/6 RUIZ noted cardiac base, trace edema with bilateral varicosities noted Vessels: no JVD or carotid bruit Chest: normal inspection of chest Abdomen: normal bowel sounds, soft, nontender, no hepatosplenomegaly Musculoskeletal: no cyanosis or clubbing, extremities motor strength 5/5, left lower paraspinal musculature tenderness to palpation, no erythema or edema or warmth Skin: no rashes, warm and dry normal turgor Neurologic: PERRL, EOMI, accommodation nl, no face palsy, no dysarthria CN's I I-XI intact bilaterally and moves all extremities Psychiatric: A+Ox3, euthymic affect Lymphatic: no cervical or axillary lymphadenopathy : deferred Results & Data Vital Signs (Past 12 Hours) Vital Signs Temp Pulse Resp BP Pulse Ox 03/27/19 14:50 97 03/27/19 14:34 36.5 C 61 18 166/77 H 97 Laboratory Results Short CBC 03/27/19 03/27/19 Range/Units 14:45 14:45 WBC 7.42 (4.8-10.8) K/uL Hgb 11.6 L (12.0-16.0) g/dL Hct 35.2 L (37-47) % Plt Count 197 (130-400) K/uL Creatinine 1.76 H (0.6-1.2) mg/dl BMP 03/27/19 14:45 Sodium 139 Potassium 4.4 Chloride 107 Carbon Dioxide 26 BUN 29 H Creatinine 1.76 H Glucose 109 H Calcium 9.8 Cardiac Enzymes 03/27/19 Range/Units 14:45 Troponin I < 0.015 (0-0.045) ng/ml Liver Function 03/27/19 Range/Units 14:45 Total Bilirubin 0.9 (0.2-1) mg/dl AST 35 (15-37) U/L ALT 57 (12-78) U/L Alkaline Phosphatase 51 (45-117) U/L Albumin 4.0 (3.4-5.0) gm/dl Diagnostic Findings CXR: IMPRESSION: 1. No acute cardiopulmonary disease. Medications Administered ECG Rate (beats per minute): 56 Rhythm: sinus bradycardia Findings: + nonspecific-ST abn (Anterior) Code Status & VTE Plan Code Status Full Code VTE Prophylaxis Plan VTE Prophylaxis will be ordered: Yes Supervising Physician Co-Signing Physician Notes The patient was seen and examined in ER on This is a 83-year-old female with significant past medical history of T2 DM, HTN, HLD, CKD stage IIIB-IV, DORIS on CPAP, anemia of renal disease, hypothyroidism, history of monoclonal IgG lambda paraproteinemia, who presents to [facility] ED at the referral of PCP secondary to episode of chest pain yesterday x1 hour and ECG changes. Free of pain in the emergency room Denies any other significant symptoms On examination Anxious but no other distress Hemodynamically stable Chest-clear to auscultate bilaterally Heart-S1-S2, regular Abdomen-benign Extremities-no edema Admission labs, EKG and imaging studies reviewed Had chest pain with EKG changes and history of negative dobutamine stress echo in June Will admit and rule out ACS Get an echocardiogram May need to have cardiology evaluation Agree with assessment and plan as outlined above by TRACEY Powell Dr
[2019-03-27] MEDS ORDERED: POLYETHYLENE (MIRALAX) 17 GM PACK PO PRN (17:54)
[2019-03-27] MEDS ORDERED: ONDANSETRON INJ 2 MG/ML 2 ML VIAL IV PRN (17:54)
[2019-03-27] MEDS ORDERED: GLUCOSE 10 TABS/TUBE PO PRN (17:54)
[2019-03-27] MEDS ORDERED: SODIUM CHLORIDE 0.9% 1000ML 1,000 ML IV SCH (17:54)
[2019-03-27] MEDS ORDERED: ACETAMINOPHEN 325 MG TAB PO PRN (17:54)
[2019-03-27] MEDS ORDERED: GLUCOSE 40% GEL 15 GM TUBE PO PRN (17:54)
[2019-03-27] MEDS ORDERED: NITROGLYCERIN SL 0.4 MG/TAB TAB SL PRN (17:54)
[2019-03-27] MEDS ORDERED: GLUCAGON FOR INJ 1 MG VIAL SQ PRN (17:54)
[2019-03-27] MEDS ORDERED: CARBOHYDRATES FOR HYPOGLYCEMIA PO PRN (17:54)
[2019-03-27] MEDS ORDERED: DEXTROSE 50% 50 ML SYRINGE IV PRN (17:54)
--- NOTE | 2019-03-27 17:54 | Emergency Department Note ---
Entered by Jorge Schwab acting as a scribe for Holger Knowles MD ED Provider Note CHIEF COMPLAINT: Cardiac Assessment HISTORY OF PRESENT ILLNESS: The patient is an 83 year old female who presents to the Emergency Room for a cardiac assessment after being sent by the [facility] for changes in her T waves on EKG that were noticed today. The patient reports she had intermittent chest discomfort yesterday that lasted for about an hour. The patient rated the pain as a 4/10 and notes it resolved on its own with no intervention. Currently the patient does not endorse any chest pain nor does she have any lower extremity swelling. The patient adds that she has had a recent echo done that showed her heart was strong. Additionally the patient has some lower back pain that started last week after she tried to lift a bag that was too heavy. Pt denies LOC, headache, fevers, chills, diaphoresis, visual changes, neck pain, breathing difficulties, nausea, vomiting, abdominal pain, melena, hematochezia, urinary symptoms, numbness, weakness, lymphadenopathy, rash, or other complaints. REVIEW OF SYSTEMS: See HPI for pertinent positives and negatives. A total of ten systems were reviewed and were otherwise negative. PMHx/PSHx: DM, HTN, Hypothyroidism SOCIAL HISTORY: Patient lives at home. PHYSICAL EXAM: GENERAL: Awake, alert, tired-appearing, in no distress HENT: Normocephalic, atraumatic. Oropharynx unremarkable. EYES: Normal conjunctiva. Sclera non-icteric. NECK: Inspection normal. Non-tender. Supple. No nuchal rigidity. FROM. No masses. RESPIRATORY: Clear to auscultation. No wheezes. No rales. Normal respiratory effort. CARDIAC: Borderline tachycardic rate. Normal rhythm. No murmurs. No rubs. Extremities warm and well perfused. Pulses equal. No JVD. GI: Soft, non-distended. No tenderness to palpation. No rebound or guarding. No masses. RECTAL: Deferred. MUSCULOSKELETAL: Atraumatic. Chest examination reveals no tenderness. The back is symmetrical on inspection without obvious abnormality. There is no CVA tenderness to palpation. No joint edema. LOWER EXTREMITIES: Calves are equal size bilaterally and non-tender. No edema. No discoloration. NEURO: Normal sensorium. No sensory or motor deficits noted. SKIN: No rash or jaundice noted. EMERGENCY DEPARTMENT COURSE: 1505: Past medical records reviewed. The patient was evaluated in room A10, and a complete history and physical examination were performed. 1555: I reevaluated the patient and she is resting in bed pain free. I updated the patient on the results and treatment plan which she agreed with. 1610: I discussed the patient's case with Luz Marina HERNANDEZ who is working under Dr. Don Combs Hospitalist. They are going to accept the patient for further evaluation. MEDICAL DECISION MAKING: A10 Prior records/ancillary studies reviewed. Triage Nursing notes reviewed and agree them. Additional history obtained from the family. The patient's history was concerning for chest pain. Differential diagnosis: Etiologies such as cardiac ischemia, aortic dissection, pulmonary embolism, pneu monia, pneumothorax, musculoskeletal, infections, pericarditis, myocarditis, esophageal rupture, gastrointestinal, as well as others were entertained. Physical examination: As above. ER treatment provided: No medication given. The patient was pain-free peer On reassessment the patient felt better. Diagnostic interpretation by me: The electrocardiogram was negative for pathologic change. The labs revealed an unremarkable CBC and chemistry panel except for slight anemia and mild renal insufficiency. Troponin negative. Imaging studies: Chest x-ray negative for acute process. The patient had a concerning episode of chest pain. Further management in the hospital is recommended. Patient and family in agreement. Consultation: A consultation was placed with the hospitalist. The case was discussed and diagnostics were reviewed. The patient was evaluated in the ER for further treatment. IMPRESSION: Substernal chest pain Mild anemia Renal insufficiency PLAN: Being evaluated by the hospitalist The scribe's documentation has been prepared under my direction and personally reviewed by me in its entirety. I confirm that the note above accurately reflects all work, treatment, procedures, and medical decision making performed by me. Impression & Plan Substernal chest pain Past Med/Surg History Medical History (Updated 03/27/19 @ 17:27 by Luz Marina Us PA-C) Anemia due to chronic kidney disease CKD (chronic kidney disease), stage III DM type 2 (diabetes mellitus, type 2) Dyslipidemia GERD (gastroesophageal reflux disease) HTN (hypertension) Hypothyroidism IgM lambda paraproteinemia DORIS on CPAP Pernicious anemia Surgical History (Updated 03/27/19 @ 17:06 by Luz Marina Us PA-C) History of appendectomy History of dilation and curettage History of knee surgery History of total bilateral knee replacement (TKR) S/P cholecystectomy Family History Mother , 85 Heart disease Diabetes Father , 65 Pancreatic cancer Social History (Updated 03/27/19 @ 17:07 by Luz Marina Us PA-C) Preferred Language: Lithuanian Communication Ability: Effective Nutrition Consultant Required: No Beliefs That Will Affect Care: Uatsdin Uatsdin Beliefs: Oriental Orthodox marital status: Current Living Situation: Spouse current occupational status: retired Feels Safe at Home: Yes Smoking Status: Former smoker Number of Years Since Quit: 30 ; Second Hand Exposure: No ; Hx Alcohol Use: No Hx Substance Use: No Results & Data Vital Signs Vital Signs - 24 hr 03/27/19 14:34 03/27/19 14:49 03/27/19 14:50 Temperature 36.5 C Temperature Source Oral Pulse Rate 61 63 58 L Respiratory Rate 18 21 13 Respiratory Effort / Characteristics Non-Labored Spontaneous Respiratory Depth Normal Blood Pressure 166/77 H Blood Pressure Mean 106 Pulse Oximetry 97 97 Oxygen Delivery Method Room Air Room Air Sepsis Recent Fever Within 48 Hours No Sepsis New/Unexplained Change in Mental Status No Sepsis Action Taken by Nursing No Action Required 03/27/19 15:00 03/27/19 15:10 03/27/19 15:20 Temperature Temperature Source Pulse Rate 57 L 60 57 L Respiratory Rate 12 17 22 Respiratory Effort / Characteristics Respiratory Depth Blood Pressure Blood Pressure Mean Pulse Oximetry Oxygen Delivery Method Sepsis Recent Fever Within 48 Hours Sepsis New/Unexplained Change in Mental Status Sepsis Action Taken by Nursing 03/27/19 15:30 03/27/19 15:40 03/27/19 15:50 Temperature Temperature Source Pulse Rate 60 55 L 60 Respiratory Rate 19 16 13 Respiratory Effort / Characteristics Respiratory Depth Blood Pressure Blood Pressure Mean Pulse Oximetry Oxygen Delivery Method Sepsis Recent Fever Within 48 Hours Sepsis New/Unexplained Change in Mental Status Sepsis Action Taken by Nursing 03/27/19 16:00 03/27/19 16:10 03/27/19 16:20 Temperature Temperature Source Pulse Rate 59 L 55 L 69 Respiratory Rate 17 16 22 Respiratory Effort / Characteristics Respiratory Depth Blood Pressure Blood Pressure Mean Pulse Oximetry Oxygen Delivery Method Sepsis Recent Fever Within 48 Hours Sepsis New/Unexplained Change in Mental Status Sepsis Action Taken by Nursing 03/27/19 16:30 03/27/19 16:40 Temperature Temperature Source Pulse Rate 56 L 54 L Respiratory Rate 16 16 Respiratory Effort / Characteristics Respiratory Depth Blood Pressure Blood Pressure Mean Pulse Oximetry 98 Oxygen Delivery Method Room Air Sepsis Recent Fever Within 48 Hours Sepsis New/Unexplained Change in Mental Status Sepsis Action Taken by [facility]ent[facility] Medications Current Medication List: was personally reviewed by me Laboratory Data Attestation: I reviewed the patient's lab results. Result diagrams: 03/27/19 14:45 03/27/19 14:45 Lab Results 03/27/19 03/27/19 03/27/19 Range/Units 14:45 14:45 14:45 WBC 7.42 (4.8-10.8) K/uL RBC 3.86 L (4.2-5.4) M/uL Hgb 11.6 L (12.0-16.0) g/dL Hct 35.2 L (37-47) % MCV 91.2 (80-100) fL MCH 30.1 (25-34) pg MCHC 33.0 (32-36) g/dL RDW Std Deviation 43.6 (36.4-46.3) fL RDW Coeff of Elpidio 13.1 (11.5-14.5) % Plt Count 197 (130-400) K/uL MPV 10.5 H (7.4-10.4) fL Immature Gran % (Auto) 0.0 % Neut % (Auto) 60.2 % Lymph % (Auto) 27.2 % Luna % (Auto) 9.7 % Eos % (Auto) 2.2 % Baso % (Auto) 0.7 % Immature Gran # (Auto) 0.00 (0.00-0.02) K/uL Neut # (Auto) 4.47 (1.4-6.5) K/uL Lymph # (Auto) 2.02 (1.2-3.4) K/uL Luna # (Auto) 0.72 H (0.11-0.59) K/uL Eos # (Auto) 0.16 (0-0.5) K/uL Baso # (Auto) 0.05 (0-0.2) K/uL PT 10.9 (9.0-12.0) Seconds INR 1.1 (0.9-1.1) APTT 24.6 (21.0-31.0) Seconds PTT Ratio 0.9 Sodium 139 (136-145) mmol/L Potassium 4.4 (3.5-5.1) mmol/L Chloride 107 (98-107) mmol/L Carbon Dioxide 26 (21-32) mmol/L Anion Gap 6.0 (3-11) BUN 29 H (7-18) mg/dl Creatinine 1.76 H (0.6-1.2) mg/dl Est Cr Clr Drug Dosing 25.7 ml/min Est GFR ( Amer) 30.9 Est GFR (Non-Af Amer) 26.7 BUN/Creatinine Ratio 16.6 (10-20) Glucose 109 H (70-99) mg/dl Calcium 9.8 (8.5-10.1) mg/dl Total Bilirubin 0.9 (0.2-1) mg/dl AST 35 (15-37) U/L ALT 57 (12-78) U/L Alkaline Phosphatase 51 (45-117) U/L Troponin I < 0.015 (0-0.045) ng/ml Total Protein 7.7 (6.4-8.2) gm/dl Albumin 4.0 (3.4-5.0) gm/dl Globulin 3.7 (2.5-4.0) gm/dl Albumin/Globulin Ratio 1.1 (0.9-2) Lipase 247 (73-393) U/L Imaging Data Radiologist's Impression: Radiology results as stated below per my review and the radiologist's interpretation: XR chest 1V portable CLINICAL HISTORY: 83 years-old Female presenting with Chest Pain. TECHNIQUE: Portable upright AP view of the chest was obtained. COMPARISON: 06/11/2018. FINDINGS: Atherosclerosis of the aortic arch. Cardiac silhouette normal in size. Prominent left pericardial fat pad. No new focal opacity. No large effusion or pneumothorax. Degenerative changes of the thoracic spine and right glenohumeral joint. Upper abdomen normal. IMPRESSION: 1. No acute cardiopulmonary disease. Electronically signed by: Milton Ryan M.D. 03/27/2019 2:54 PM ECG Data Attestation: I personally reviewed and interpreted this ECG as follows: Indication: + chest pain Rate (beats per minute): 56 Rhythm: sinus bradycardia ECG Intervals/blocks: + Normal QRS and + Normal QT ECG [place]: + Normal ECG ST segments: no ST depression and no ST elevation ECG Findings: + Other (Nonspecific ST changes ) Comparison ECG Date: from (06/12/18) Change: the following changes noted (TWI are less pronounced today) Additional Comments: EKG obtained from the [facility] 03/27/19 at 13:59 Anterior T wave inversions are similar to her EKG from 06/12/18 Blood Pressure Blood Pressure Findings: Elevated blood pressure Blood Pressure Disposition: further management by hospitalist Discharge Plan Visit Data Chief Complaint: Cardiac Assessment Stated Complaint: BLOCKAGE IN HEART, SENT BY DR BALLARD Provider: Holger Knowles Discharge Problem: Substernal chest pain Patient Disposition: Being Evaluated by Hospitalist The scribe's documentation has been prepared under my direction and personally reviewed by me in its entirety. I confirm that the note above accurately reflects all work, treatment, procedures, and medical decision making performed by me.
[2019-03-27] MEDS: PANTOprazole 40 MG TAB PO SCH (18:54)
[2019-03-27] MEDS ORDERED: SIMVASTATIN 40 MG TAB PO SCH (21:00)
[2019-03-27] MEDS ORDERED: ASPIRIN 81 MG ECTAB PO SCH (21:00)
[2019-03-27] MEDS ORDERED: OXYBUTYNIN CHLORIDE XL 5 MG TABCR PO SCH (21:00)
[2019-03-27] MEDS: INSULIN ASPART 100 UNITS/ML 3 ML PEN SC SCH (22:44)
[2019-03-28 02:06] LABS: Basophils # (auto) 0.05 K/uL (0-0.2); Basophils % (auto) 0.8 %; Eosinophils # (auto) 0.22 K/uL (0-0.5); Eosinophils % (auto) 3.4 %; Hematocrit (blood only) 32.6 % (37-47); Hemoglobin 10.8 g/dL (12.0-16.0); Immature Granulocytes # (auto) 0.01 K/uL (0.00-0.02); Immature Granulocytes % (auto) 0.2 %; Lymphocytes # (auto) 2.45 K/uL (1.2-3.4); Lymphocytes % (auto) 37.4 %; Mean Corpuscular Hgb Conc 33.1 g/dL (32-36); Mean Corpuscular Volume 90.6 fL (80-100); Mean Platelet Volume 10.6 fL (7.4-10.4); Monocytes # (auto) 0.55 K/uL (0.11-0.59); Monocytes % (auto) 8.4 %; Neutrophils # (auto) 3.27 K/uL (1.4-6.5); Neutrophils % (auto) 49.8 %; Platelet Count 176 K/uL (130-400); RDW Coefficient of Variation 12.9 % (11.5-14.5); RDW Standard Deviation 42.8 fL (36.4-46.3); White Blood Count 6.55 K/uL (4.8-10.8)
[2019-03-28 02:18] LABS: BUN Creatinine Ratio 16.8 (10-20); Blood Urea Nitrogen 28 mg/dl (7-18); Calcium 9.1 mg/dl (8.5-10.1); Carbon Dioxide 28 mmol/L (21-32); Chloride 110 mmol/L (98-107); Creatinine Clr Calc Pharmacy 27.4 ml/min; Est GFR (African American) 33.4; Est GFR (Non-African American) 28.8; Glucose 98 mg/dl (70-99); Magnesium 1.9 mg/dl (1.8-2.4); Potassium 4.4 mmol/L (3.5-5.1); Sodium 141 mmol/L (136-145)
[2019-03-28 02:23] LABS: Chol HDL Ratio 2; Cholesterol 93 mg/dl (0-200); HDL Cholesterol 46 mg/dl; LDL Cholesterol Calculated 19 mg/dl; Triglycerides 138 mg/dl (0-150); Troponin I < 0.015 ng/ml (0-0.045); VLDL Cholesterol 28 mg/dl
[2019-03-28 06:17] LABS: Estimated Average Glucose 137 mg/dl; Hemoglobin A1C 6.4 % (4.5-5.6)
[2019-03-28] MEDS ORDERED: LEVOTHYROXINE SODIUM 75 MCG TABLET PO SCH (06:30)
[2019-03-28] MEDS: INSULIN ASPART 100 UNITS/ML 3 ML PEN SC SCH ×2 (08:35→12:21)
[2019-03-28] MEDS: PANTOprazole 40 MG TAB PO SCH (08:37)
[2019-03-28] MEDS ORDERED: LOSARTAN POTASSIUM 25 MG TAB PO SCH (09:00)
[2019-03-28] MEDS ORDERED: OMEGA-3 (PURIFIED FISH OIL) 1 GM CAP PO SCH (12:00)
--- NOTE | 2019-03-28 14:21 | Cardiology Consultation ---
Date of Consultation March 28, 2019 Assessment & Plan (1) Substernal chest pain: She describes primarily epigastric and substernal chest discomfort lasting about 45 minute and radiating both right and left across the lower chest. She has no exertional symptoms but does walk regularly. With totally normal cardiac enzymes and no diagnostic ECG changes I doubt this is cardiac and would not investigate further in that direction. If symptoms change we can reconsider further cardiovascular testing but she has had recent stress testing initially by treadmill testing and then subsequently nuclear stress testing for what sounds like similar symptoms. I am not inclined to do a cardiac catheterization for symptoms that do not sound cardiac. (2) Abnormal ECG: She has longstanding anterior nonspecific ST and T abnormalities, the do fluctuate somewhat but aren't specific for ischemia and she has left ventricular hypertrophy and I suspect the electrocardiographic abnormalities stem from that. I would not pursue evaluation of them History of Present Illness Reason for Consultation: Chest pain Attending Physician: Destin Olivarez MD History of Present Illness This is an 83-year-old woman who has a history of hypertension, diabetes mellitus, chronic kidney disease, chronic anemia and GERD. She presented in June of this year with mid epigastric burning discomfort, at the time the symptoms were not exacerbated by activity. She had had the symptoms at least as far back as 2017 when she had a treadmill stress echo. She had a repeat stress test performed on June 11, 2018, this time a dobutamine stress echo, which was also negative for ischemia. She now presents with about 45 minutes of epigastric discomfort. She describes sitting in a chair reading a book and suddenly getting epigastric and lower sternal sharp pain with radiation to the right and left lower thorax. She was scared to get up when it happened even though she was not having hemodynamic symptoms, she did not have palpitations, and therefore she remained in the chair for about 45 minutes before it was relieved. She was seen in the [facility] the next day where I believe some T wave abnormalities were identified and she was sent to the emergency room on March 27, 2019. She has had no further chest discomfort since that particular episode. She tells me that she is quite active, she does a lot of housework, she also walks for half an hour an hour 3 times a week and she has had no exertional symptoms including dyspnea on exertion or exertional chest discomfort. She does not have orthopnea or PND and she denies lightheadedness or dizziness. Her tells me the week before she lifted a bag and had some back discomfort but that does not seem related to the chest discomfort that she had prior to this admission. Evaluation here has included troponin which is negative x3 and electrocardiograms and an echocardiogram done March 28, 2019 which showed normal left ventricular systolic function, no wall motion abnormalities but she did have left ventricular hypertrophy. She has had no recurrence of her symptoms. Allergies Allergy/AdvReac Type Severity Reaction Status Date / Time Cipro Allergy Mild RASH Verified 04/12/17 08:27 ciprofloxacin Allergy Mild RASH Verified 03/27/19 15:46 metformin AdvReac Intermediate GI SYMPTOMS Verified 03/27/19 15:46 BENEDICT Inhibitors AdvReac Unknown COUGH Verified 03/27/19 15:46 Home Medications Home Medications Medication Instructions Recorded Confirmed Type Probiotic 0 mmu cells PO QAM 06/11/18 03/27/19 History acetaminophen [Tylenol Extra 1,000 mg PO Q8H PRN 06/11/18 03/27/19 History Strength] biotin 1 mg PO DAILY 06/11/18 03/27/19 History levothyroxine 75 mcg PO QAM 06/11/18 03/27/19 History losartan 25 mg PO DAILY 06/11/18 03/27/19 History nitroglycerin 2 spray SUBLINGUAL DIRECTED PRN 06/11/18 03/27/19 History omega-3 fatty acids 500 mg PO DAILY@1200 06/11/18 03/27/19 History ranitidine HCl 150 mg PO BID 06/11/18 03/27/19 History simvastatin 40 mg PO HS 06/11/18 03/27/19 History aspirin 81 mg PO HS 03/27/19 03/27/19 History dulaglutide [Trulicity] 0.75 mg SUBCUT WK 03/27/19 03/27/19 History epoetin lou [Procrit] 10,000 unit SUBCUT MONTHLY 03/27/19 03/27/19 History oxybutynin chloride 5 mg PO HS 03/27/19 03/27/19 History sitagliptin [Januvia] 25 mg PO BID 03/27/19 03/27/19 History nitroglycerin [Nitrostat] 0.4 mg SUBLINGUAL UD PRN #30 tab 03/28/19 Rx Patient History Medical History Anemia due to chronic kidney disease CKD (chronic kidney disease), stage III DM type 2 (diabetes mellitus, type 2) Dyslipidemia GERD (gastroesophageal reflux disease) HTN (hypertension) Hypothyroidism IgM lambda paraproteinemia DORIS on CPAP Pernicious anemia Surgical History History of appendectomy History of dilation and curettage History of knee surgery History of total bilateral knee replacement (TKR) S/P cholecystectomy Family History Mother , 85 Heart disease Diabetes Father , 65 Pancreatic cancer Social History Preferred Language: Tanzanian Communication Ability: Effective Electrical And Electronic Assembler Required: No Beliefs That Will Affect Care: None marital status: Current Living Situation: Spouse Current Living Situation Comment: at home current occupational status: retired Other Information That Helps Us Care for You: No Feels Safe at Home: Yes Safety Concerns: Feels Safe At This Time Smoking Status: Former smoker Number of Years Since Quit: 30 ; Second Hand Exposure: No ; Hx Alcohol Use: No Hx Substance Use: No Review of Systems Review of Systems: All systems reviewed & are unremarkable except as noted in HPI & below Physical Exam Physical Exam: Constitutional: Alert, cooperative and in no distress. HEENT: Unremarkable Neck: No jugular venous distention, carotid pulses are normal and equal bilaterally without bruits. Pulmonary: Clear to auscultation bilaterally. Cardiac: Regular rhythm with no murmur, gallop or rub. Abdomen: Soft, nontender with normal bowel sounds. Extremities: No edema. Distal pulses intact. Neurologic: No focal findings. Gait is steady. Skin: No rash, ecchymoses or petechiae. Results & Data Vital Signs (Past 12 Hours) Vital Signs Temp Pulse Pulse Resp BP Pulse Ox 03/28/19 11:09 36.6 C 54 L 20 148/78 H 97 03/28/19 08:00 52 L 03/28/19 07:47 36.5 C 69 18 147/80 H 97 03/28/19 03:00 36.7 C 71 18 122/70 97 Laboratory Results Abnormal lab results 03/27/19 03/27/19 03/27/19 Range/Units 14:45 14:45 20:39 RBC 3.86 L (4.2-5.4) M/uL Hgb 11.6 L (12.0-16.0) g/dL Hct 35.2 L (37-47) % MPV 10.5 H (7.4-10.4) fL [place] # (Auto) 0.72 H (0.11-0.59) K/uL Chloride (98-107) mmol/L BUN 29 H (7-18) mg/dl Creatinine 1.76 H (0.6-1.2) mg/dl Glucose 109 H (70-99) mg/dl POC Glucose 123 H (70-99) Hemoglobin A1c (4.5-5.6) % 03/28/19 03/28/19 03/28/19 Range/Units 01:37 01:37 01:37 RBC 3.60 L (4.2-5.4) M/uL Hgb 10.8 L (12.0-16.0) g/dL Hct 32.6 L (37-47) % MPV 10.6 H (7.4-10.4) fL [place] # (Auto) (0.11-0.59) K/uL Chloride 110 H (98-107) mmol/L BUN 28 H (7-18) mg/dl Creatinine 1.65 H (0.6-1.2) mg/dl Glucose (70-99) mg/dl POC Glucose (70-99) Hemoglobin A1c 6.4 H (4.5-5.6) % 03/28/19 03/28/19 Range/Units 07:49 11:19 RBC (4.2-5.4) M/uL Hgb (12.0-16.0) g/dL Hct (37-47) % MPV (7.4-10.4) fL [place] # (Auto) (0.11-0.59) K/uL Chloride (98-107) mmol/L BUN (7-18) mg/dl Creatinine (0.6-1.2) mg/dl Glucose (70-99) mg/dl POC Glucose 145 H 106 H (70-99) Hemoglobin A1c (4.5-5.6) % Diagnostic Findings An electrocardiogram on March 27, 2019 at 1438 shows sinus bradycardia with some nonspecific ST-T abnormalities. On June 12, 2018 she did have inverted T waves in the anterolateral leads. Another electrocardiogram done here on March 28, 2019 shows sinus bradycardia with anterior T wave inversions. Telemetry: Sinus rhythm, sinus bradycardia, no significant arrhythmia PG Care Time/CCT Total # of Minutes Spent Total Time Spent with Patient: Total time spent is greater than 50% in coordination of care (as documented) at patient's floor/unit and/or counseling patient:
--- NOTE | 2019-03-28 14:30 | Hospitalist Progress Note ---
Date of Service March 28, 2019 Assessment & Plan (1) Chest pain: (2) Abnormal ECG: Patient is an 83 yr female with H/O DM II, HTN, HLD, CKD stage IIIB-IV, DORIS on CPAP, anemia of renal disease, hypothyroidism, history of monoclonal IgG lambda paraproteinemia, who presents to [facility] ED at the referral of PCP secondary to episode of chest pain yesterday x1 hour and ECG changes. Chest Pain CXR:No acute cardiopulmonary disease. Cardiac Enzymes X 3: Negative EKG: Nonspecific ST-T wave changes Echo: No wall motion abnormality Appreciate cardiology input No further investigations for further work-up planned Advised to follow-up with her electronic industrial controls mechanic upon discharge (3) Low back pain: Left lower back pain, reproducible Likely musculoskeletal in origin--given onset secondary to lifting weight few days ago Pain control (4) DM type 2 (diabetes mellitus, type 2): A1c 6.4 Hold outpatient Lastline NovoLog sliding scale per protocol (5) HTN (hypertension): Stable Continue home medications Monitor blood pressure (6) CKD (chronic kidney disease), stage III: Baseline creatinine 1.7 Creatinine at baseline Monitor renal function Avoid nephrotoxic agents as able (7) Anemia due to chronic kidney disease: Procrit as outpatient Hemoglobin at baseline (8) Dyslipidemia: Continue statin (9) DORIS on CPAP: CPAP at bedtime (10) Hypothyroidism: Continue levothyroxine (11) DVT prophylaxis: SCD/TEDS Disposition: Plan to discharge home today Subjective Patient is seen and examined at bedside Denies any recurrence of chest pain Also denies any shortness of breath, dizziness, nausea, abdominal pain Offers no other complaints Discussed with cardiology today Review of Systems Review of Systems: All systems reviewed & are unremarkable except as noted in HPI & below Physical Exam Physical Exam: Physical Exam: Vitals signs as noted above General Appearance:Moderately built and nourished, no apparent distress Head: normocephalic, Atraumatic Eyes: normal inspection, EOMI Neck: supple, Trachea midline Respiratory/Chest: Normal breath sounds, CTA Cardiovascular: S1, S2, No murmur Abdomen/GI:Soft, Non tender, Bowel sounds present Extremities/Musculoskelatal:normal inspection, no edema Neurologic/Psych:AAOX3, grossly no focal neurological deficits Skin: normal color, warm Results & Data Vital Signs (Past 12 Hours) Vital Signs Temp Pulse Pulse Resp BP Pulse Ox 03/28/19 11:09 36.6 C 54 L 20 148/78 H 97 03/28/19 08:00 52 L 03/28/19 07:47 36.5 C 69 18 147/80 H 97 03/28/19 03:00 36.7 C 71 18 122/70 97 Laboratory Results Short CBC 03/28/19 Range/Units 01:37 WBC 6.55 (4.8-10.8) K/uL Hgb 10.8 L (12.0-16.0) g/dL Hct 32.6 L (37-47) % Plt Count 176 (130-400) K/uL BMP 03/27/19 03/28/19 14:45 01:37 Sodium 139 141 Potassium 4.4 4.4 Chloride 107 110 H Carbon Dioxide 26 28 BUN 29 H 28 H Creatinine 1.76 H 1.65 H Glucose 109 H 98 Calcium 9.8 9.1 Cardiac Enzymes 03/27/19 03/27/19 03/28/19 Range/Units 14:45 19:42 01:37 Troponin I < 0.015 < 0.015 < 0.015 (0-0.045) ng/ml Liver Function 03/27/19 Range/Units 14:45 Total Bilirubin 0.9 (0.2-1) mg/dl AST 35 (15-37) U/L ALT 57 (12-78) U/L Alkaline Phosphatase 51 (45-117) U/L Albumin 4.0 (3.4-5.0) gm/dl
--- NOTE | 2019-03-28 15:13 | Discharge Summary ---
Date of Service March 28, 2019 Admission HPI Per Admitting Provider This is a 83-year-old female who has significant past medical history of T2 DM, HTN, HLD, CKD stage IIIB-IV, DORIS on CPAP, anemia of renal disease, hypothyroidism, history of monoclonal IgG lambda paraproteinemia, who presents to [facility] ED at the referral of PCP secondary to episode of chest pain yesterday x1 hour and ECG changes. She elicits yesterday she was sitting down reading a book when she developed precordial chest pain, described as "ache," rated 4/10, not made worse with deep breathing, movement, leaning forward, nothing made better, resolved on own with associated upper and lower back pain. She had upper back pain which has now resolved, but continues to have residual left lower back pain. elicits she lifted something last and feels it may be related to that. She has never had anything similar in the past. Denies any associated diaphoresis, nausea, vomiting, shortness of breath, palpitations. She denies any prior history of CAD or LA. Given age she is fairly independent. She walks daily. She denies any exertional dyspnea or chest pain with exertion. She denies any orthopnea or PND. She is compliant with her CPAP at bedtime. She denies any recent illness, fever, sweats, lightheadedness, dizziness, syncope, cough, hemoptysis, nausea, vomiting, abdominal pain, dysuria, increased urgency or frequency with urination, hematuria. Over the past 3 days she has been feeling more constipated, but otherwise denies melena or hematochezia. Her appetite has otherwise been decreased, no known weight loss. Of significance pt did have recent confinement 06/2018 for chest pain and underwent dobutamine stress echo which was negative for ischemia. Medical records in [facility] were reviewed. Patient was seen in outpatient provider clinic by PAC. There was concern for anterior T wave changes and she was referred to ED for further evaluation. In ED her CBC was remarkable for chronic anemia of 11.6 and 35.2. Her BUN and creatinine elevated at 29 and 1.76 consistent with her CKD stage III-IV. Initial troponin was WNL, lipase WNL and EKG reveals sinus bradycardia with T wave inversions minimally in V2. Reviewing EKGs from office visit today 03/27 revealed sinus bradycardia with a more pronounced T wave inversion in V2 through V4. These T wave inversions were also noted on EKG 06/12/2018. Admission Exam Per Admitting Provider Constitutional: WD/WN, vitals as above, NAD, sitting up in bed, pleasant, conversing easily Head: Normocephalic, Atraumatic Eyes: PERRL, conjunctivae normal, anicteric sclerae ENMT: external ear and nose normal, oropharynx normal Neck: trachea midline, no thyromegaly normal visual inspection Respiratory: normal respiratory effort, lungs clear to auscultation, no wheeze, rales, rhonchi. Normal insp/exp effort, no accessory muscle use Cardiovascular: RRR, 1/6 RUIZ noted cardiac base, trace edema with bilateral varicosities noted Vessels: no JVD or carotid bruit Chest: normal inspection of chest Abdomen: normal bowel sounds, soft, nontender, no hepatosplenomegaly Musculoskeletal: no cyanosis or clubbing, extremities motor strength 5/5, left lower paraspinal musculature tenderness to palpation, no erythema or edema or warmth Skin: no rashes, warm and dry normal turgor Neurologic: PERRL, EOMI, accommodation nl, no face palsy, no dysarthria CN's II-XI intact bilaterally and moves all extremities Psychiatric: A+Ox3, euthymic affect Lymphatic: no cervical or axillary lymphadenopathy : deferred Principal Diagnosis Chest pain Discharge Data Allergies Allergy/AdvReac Type Severity Reaction Status Date / Time Cipro Allergy Mild RASH Verified 04/12/17 08:27 ciprofloxacin Allergy Mild RASH Verified 03/27/19 15:46 metformin AdvReac Intermediate GI SYMPTOMS Verified 03/27/19 15:46 BENEDICT Inhibitors AdvReac Unknown COUGH Verified 03/27/19 15:46 Consultations 03/27/19 16:13 ED Decision to Admit Stat 03/28/19 11:12 Consult Cardiology Routine Procedures Performed CXR: No acute cardiopulmonary disease. Hospital Course (1) Chest pain: (2) Abnormal ECG: Patient is an 83 yr female with H/O DM II, HTN, HLD, CKD stage IIIB-IV, DORIS on CPAP, anemia of renal disease, hypothyroidism, history of monoclonal IgG lambda paraproteinemia, who presents to [facility] ED at the referral of PCP secondary to episode of chest pain yesterday x1 hour and ECG changes. Chest Pain CXR:No acute cardiopulmonary disease. Cardiac Enzymes X 3: Negative EKG: Nonspecific ST-T wave changes Echo: No wall motion abnormality Appreciate cardiology input No further investigations for further work-up planned Advised to follow-up with her recorder helper seismograph upon discharge (3) Low back pain: Left lower back pain, reproducible Likely musculoskeletal in origin--given onset secondary to lifting weight few days ago Pain control (4) DM type 2 (diabetes mellitus, type 2): A1c 6.4 Hold outpatient Januvia NovoLog sliding scale per protocol (5) HTN (hypertension): Stable Continue home medications Monitor blood pressure (6) CKD (chronic kidney disease), stage III: Baseline creatinine 1.7 Creatinine at baseline Monitor renal function Avoid nephrotoxic agents as able (7) Anemia due to chronic kidney disease: Procrit as outpatient Hemoglobin at baseline (8) Dyslipidemia: Continue statin (9) DORIS on CPAP: CPAP at bedtime (10) Hypothyroidism: Continue levothyroxine (11) DVT prophylaxis: SCD/TEDS Disposition: Plan to discharge home today Total Time Total Time Spent Total Time Spent (In Minutes): 28 Total Time Includes: Examination of the Patient, Discharge Planning, Medication Reconciliation, Communication With Other Providers and Other Discharge Plan Discharge Items Patient Disposition: Home - Self-Care Reason For Visit: CHEST PAIN Discharge Diagnosis: Chest pain Activity: Resume your previous activity Exercise/Sports: Gradually increase as tolerated Non-emergency contact: Primary Care Provider and Wilton Weaver Call non-emergency contact if: you have any medication questions, your symptoms worsen, your pain is not controlled, your pain is worsening, your pain is unusual for you, your pain is concerning for you and you have a fever Follow-up/Referrals: Capo Green MD [Primary Care Provider] - Diet: Carb Consistent or DM2 and Heart Healthy Addtl Attending Provider Instructions: Follow-up with your primary care physician Dr. Green on April 03, 2019 at 11:05 AM Follow-up with your recorder helper seismograph if you have recurrence of chest pain as advised Seek immediate medical attention if your symptoms reoccur or worsen Pending Studies at Discharge: No Stand-Alone Forms: My [employer], Smoking Cessation Medications and DC Order Prescriptions: New nitroglycerin [Nitrostat] 0.4 mg Tablet, Sublingual 0.4 mg sublingual UD PRN (Reason: chest pain) Qty: 30 RF: 0 Continued losartan 50 mg tablet 25 mg PO DAILY RF: 0 acetaminophen [Tylenol Extra Strength] 500 mg Tablet 1,000 mg PO Q8H PRN (Reason: Fever Or Pain) RF: 0 simvastatin 40 mg tablet 40 mg PO HS RF: 0 levothyroxine 75 mcg tablet 75 mcg PO QAM RF: 0 ranitidine HCl 150 mg tablet 150 mg PO BID RF: 0 Probiotic 3 billion cell Capsule 0 mmu cells PO QAM RF: 0 biotin 1 mg Tablet 1 mg PO DAILY RF: 0 omega-3 fatty acids 500 mg Capsule 500 mg PO DAILY@1200 RF: 0 aspirin 81 mg Tablet,Delayed Release (Dr/Ec) 81 mg PO HS RF: 0 oxybutynin chloride 5 mg tablet extended release 24hr 5 mg PO HS RF: 0 Procrit 10,000 unit/mL solution 10,000 unit subcut MONTHLY RF: 0 Januvia 50 mg tablet 25 mg PO BID RF: 0 Trulicity 0.75 mg/0.5 mL pen injector 0.75 mg SUBCUT WK RF: 0 Discontinued nitroglycerin 400 mcg/spray spray,non-aerosol 2 spray Sublingual DIRECTED PRN (Reason: Chest Pain) RF: 0 Discharge Orders: Discharge Order (Routine); Ordered 03/28/19 Ordered By: Destin Ambriz/Other Patient Handouts: Nitroglycerin Sublingual tablet Admission Data Admit Date/Time: 03/27/19 16:48 Attending Provider: Destin Olivarez Admit Provider: Mic Ochoa Primary Care Provider: Capo Green Other Providers: Mic Ochoa ; Rogelio Jorge Other Interventions: Discharge Summary Assessment (RN) Last Done: 03/28/19 15:17 DC Date/Time DO NOT enter until pt leaves facility: 03/28/19 15:38
== END 2019-03-28 15:38 | disposition home or self-care (01) ==
LOC: ED 14:29 → 2S 14:29 → SUATTDRO 16:48 → 2S 17:55

== ENCOUNTER 2022-07-20 14:12 | Inpatient (IN) ==
[2022-07-20] MEDS ORDERED: ASPIRIN CHEW 324 MG PO STA (14:23)
[2022-07-20] MEDS ORDERED: NITROGLYCERIN SL 0.4 MG/TAB TAB SL STA (14:23)
--- NOTE | 2022-07-20 14:26 | Emergency Department Note ---
Impression & Plan Chest pain, Abnormal EKG ED Provider Note NAME: KELLI ALBRIGHT AGE: 86 SEX: F : 1935 ARRIVES VIA: Walk-In INFORMANT: Patient, significant other ED PROVIDER(S): Gómez Snider DO CHIEF COMPLAINT: Chest pain HPI: The patient is an 86-year-old female who presented to the emergency department with her significant other for an evaluation of chest pain. The patient describes left-sided chest pain that goes into her left neck which began approximate 1 hour ago. She states that she was at rest when this started. She denies having any abdominal pain or vomiting. She denies having any nausea or shortness of breath. She denies have any lower extremity swelling. She did not see her family doctor for the symptoms presented directly to the emergency department. The patient states the pain has been constant. She is never had similar symptoms in the past. She is scheduled to see a manager animal this week because of an abnormal EKG that was done in her primary care physician's office. ROS: See above HPI for pertinent positives & negatives. A total of 10 systems reviewed and were otherwise negative. PAST MEDICAL HISTORY: See Below PAST SURGICAL HISTORY: See Below FAMILY HISTORY: See Below SOCIAL HISTORY: See Below HOME MEDICATIONS: See Below ALLERGIES: See Below VITALS: See Below PHYSICAL EXAMINATION: GENERAL: Patient is awake alert in no acute distress patient is resting comfortably and showing no signs of anxiety EYES: The conjunctivae are clear. The pupils are round and reactive. EARS, NOSE, MOUTH AND THROAT: The nose is without any evidence of any deformity. Mucous membranes are moist. Tongue is midline. NECK: The neck is nontender and supple. RESPIRATORY: Normal respiratory effort is noted there is no evidence of wheezing rhonchi or rales CARDIOVASCULAR: Regular rate and rhythm was noted to auscultation. Systolic murmur was suggested. GASTROINTESTINAL: The abdomen is soft. Abdomen is nontender. MUSCULOSKELETAL/EXTREMITIES: There is no evidence of gross deformity full range of motion is noted in the hips and shoulders. SKIN: There is no obvious evidence of any rash. There are no petechiae, pallor or cyanosis noted. NEUROLOGIC: Patient is awake alert and oriented x3. Gait was steady. MEDICAL DECISION MAKING: The patient is an 86-year-old female who presented to the emergency department for an evaluation of chest pain. The patient describes left-sided chest pain with radiation to the neck. The patient was treated with aspirin and nitroglycerin in the emergency department. On reevaluation she was pain-free. I discussed the patient's condition with her. I discussed the limitations of the emergency department work-up for chest pain with her. Ultimately given her abnormal EKG as well as her risk factors I feel she would be a better candidate for inpatient management and work-up for this chest pain. For this reason I discussed her case with the on-call [facility]. They have agreed to evaluate the patient in the emergency department for further management and disposition. Triage Nursing notes reviewed. Prior medical records reviewed Vital Signs: reviewed and remarkable for elevated blood pressure. Differential diagnosis: Cardiac ischemia, aortic dissection, pulmonary embolism, pneumothorax, pneu monia, pericarditis, myocarditis, esophageal rupture, GERD, cholecystitis, pancreatitis, musculoskeletal, as well as other pathologies. ER treatment provided: See below Diagnostics interpreted by me: ECG: EKG was obtained in the emergency department. My interpretation is normal sinus rhythm at [address] and T wave abnormalities were noted. Baseline is very poor. There is biphasic T waves in the anterior leads. This was compared to a tracing from May 26, 2022. The T wave abnormalities are increased compared to the previous tracing otherwise significant QRST morphology was noted. A second EKG was obtained in the emergency department. My interpretation is sinus bradycardia at 57 bpm. There is no ectopy. Nonspecific biphasic T waves were noted in the anterior leads with T wave inversions in the lateral leads. This has a similar appearance to the earlier tracing. Cardiac Monitoring: An order was placed for continuous cardiac monitoring. The monitor shows a rate of 72 bpm with sinus rhythm. Laboratory studies: As stated above and show below. Imaging studies: See below. Radiographic imaging was reviewed by myself Consultation(s): I discussed this case with Lindy who is on-call for the [facility] group. Past Med/Surg History Medical History (Updated 07/20/22 @ 15:25 by Gómez Snider DO) Anemia due to chronic kidney disease CKD (chronic kidney disease), stage III DM type 2 (diabetes mellitus, type 2) Dyslipidemia GERD (gastroesophageal reflux disease) HTN (hypertension) Hypothyroidism IgM lambda paraproteinemia DORIS on CPAP Pernicious anemia Surgical History History of appendectomy History of dilation and curettage History of gynecologic surgery anterior colporrhaphy History of hysteroscopy History of knee surgery History of total bilateral knee replacement (TKR) S/P cholecystectomy Status post tubal ligation Family History Mother , 85 Heart disease Diabetes Father , 65 Pancreatic cancer Sister Uterine cancer Breast cancer Denies family history of Ovarian cancer Colorectal cancer Social History Smoking Status: Former smoker Tobacco Type: Cigarettes Second Hand Exposure: No; Hx Alcohol Use: No Hx Substance Use: No Preferred Language: Maltese Communication Ability: Effective Rounding Machine Tender Required: No Beliefs That Will Affect Care: None marital status: Current Living Situation: Spouse Current Living Situation Comment: at home current occupational status: retired Feels Safe at Home: Yes Assistive Devices: Denture - Upper, Denture - Lower and Glasses Allergies Allergies Allergy/AdvReac Type Severity Reaction Status Date / Time ciprofloxacin Allergy Mild RASH Verified 05/05/21 21:31 BENEDICT Inhibitors AdvReac Intermediate COUGH Verified 05/05/21 21:31 metformin AdvReac Intermediate GI SYMPTOMS Verified 05/05/21 21:31 Home Meds Home Medications Medication Instructions Recorded Confirmed levothyroxine 75 mcg tablet 75 mcg PO QAM 06/11/18 05/26/22 simvastatin 40 mg tablet 40 mg PO HS 06/11/18 05/26/22 aspirin 81 mg tablet,delayed 81 mg PO HS 03/27/19 05/26/22 release dulaglutide 0.75 mg/0.5 mL 0.75 mg subcut WK 03/27/19 05/26/22 subcutaneous pen [facility] ([facility] epoetin lou 10,000 unit/mL 10,000 unit subcut MONTHLY PRN 03/27/19 05/26/22 injection solution (Procrit) WHEN NEEDED oxybutynin chloride 5 mg 5 mg PO HS 03/27/19 05/26/22 tablet,extended release 24 hr losartan 25 mg tablet 25 mg PO DAILY 05/05/21 05/26/22 albuterol sulfate 90 mcg/actuation 2 puff inhalation Q4 PRN 05/26/22 05/26/22 aerosol inhaler cogestion,cough,wheeze biotin 1 mg capsule 1 mg PO DAILY 05/26/22 05/26/22 famotidine 20 mg tablet 20 mg PO AMHS 05/26/22 05/26/22 nitroglycerin 0.6 mg sublingual 0.6 mg sublingual .EVERY 5 MINUTES 05/26/22 05/26/22 tablet (Nitrostat) PRN Chest Pain patiromer calcium sorbitex 8.4 8.4 g PO Q OTHER DAY 05/26/22 05/26/22 gram oral powder packet (Veltassa) Results & Data (ED) Vital Signs Vital Signs - 24 hr 07/20/22 14:13 07/20/22 14:25 07/20/22 14:41 Temperature 36.4 C L Temperature Source Temporal Artery Scan Pulse Rate 72 72 Pulse Rate [Apical] 66 Pulse Rhythm Regular Pulse Rhythm [Apical] Regular Respiratory Rate 16 21 20 Respiratory Effort / Characteristics Non-Labored Spontaneous Respiratory Depth Normal Blood Pressure 215/80 H Blood Pressure [Left Arm] 197/91 H Blood Pressure Mean 125 Blood Pressure Mean [Left Arm] 126 Blood Pressure Position Sitting Blood Pressure Position [Left Arm] Semi-fowlers Pulse Oximetry 94 97 94 Oxygen Delivery Method Room Air Room Air Room Air Sepsis Recent Fever Within 48 Hours No Sepsis New/Unexplained Change in Mental Status No Sepsis Action Taken by Nursing No Action Required 07/20/22 14:34 Temperature Temperature Source Pulse Rate 59 L Pulse Rate [Apical] Pulse Rhythm Pulse Rhythm [Apical] Respiratory Rate Respiratory Effort / Characteristics Respiratory Depth Blood Pressure Blood Pressure [Left Arm] Blood Pressure Mean Blood Pressure Mean [Left Arm] Blood Pressure Position Blood Pressure Position [Left Arm] Pulse Oximetry Oxygen Delivery Method Sepsis Recent Fever Within 48 Hours Sepsis New/Unexplained Change in Mental Status Sepsis Action Taken by [facility] Medications Current Medication List: was personally reviewed by me Laboratory Data Attestation: I reviewed the patient's lab results. 07/20/22 14:26 07/20/22 14:26 Lab Results 07/20/22 07/20/22 07/20/22 Range/Units 14:26 14:26 14:27 WBC 8.05 (4.8-10.8) K/ul RBC 3.66 L (4.20-5.40) M/uL Hgb 11.0 L (12.0-16.0) g/dl Hct 33.0 L (37.0-47.0) % MCV 90.2 (80.0-100.0) fL MCH 30.1 (25.0-34.0) pg MCHC 33.3 (32.0-36.0) g/dL RDW Std Deviation 39.5 (36.4-46.3) fL RDW Coeff of Elpidio 12.1 (11.5-14.5) % Plt Count 208 (130-400) K/uL MPV 11.1 (9.4-12.4) fL Immature Gran % (Auto) 0.2 % Neut % (Auto) 57.4 % Lymph % (Auto) 29.9 % [place] % (Auto) 8.6 % Eos % (Auto) 2.9 % Baso % (Auto) 1.0 % Neut # (Auto) 4.62 (1.40-6.50) K/uL Lymph # (Auto) 2.41 (1.2-3.4) K/uL [place] # (Auto) 0.69 H (0.11-0.59) K/uL Eos # (Auto) 0.23 (0-0.50) K/uL Baso # (Auto) 0.08 (0-0.2) K/uL Immature Gran # (Auto) 0.02 (0.01-0.20) K/uL Sodium 139 (136-145) mmol/L Potassium 4.2 (3.5-5.1) mmol/L Chloride 107 (98-107) mmol/L Carbon Dioxide 27 (21-32) mmol/L Anion Gap 5 (3-11) BUN 28 H (6-23) mg/dl Creatinine 1.44 H (0.6-1.2) mg/dl Est Cr Clr Drug Dosing Not Reportable Est GFR ( Amer) 38.6 ml/min Est GFR (Non-Af Amer) 33.3 ml/min BUN/Creatinine Ratio 19.4 (10-20) Glucose 156 H (70-99(Fasting)) mg/dl Calcium 9.6 (8.5-10.1) mg/dl Total Bilirubin 0.8 (0.2-1.0) mg/dl AST 46 H (13-39) U/L ALT 52 (7-52) U/L Alkaline Phosphatase 41 (34-104) U/L Troponin I High Sens 9.7 (0-14) pg/ml Total Protein 7.2 (6.0-8.3) gm/dl Albumin 4.2 (3.4-5.0) gm/dl Globulin 3.0 (2.5-4.0) gm/dl Albumin/Globulin Ratio 1.4 (0.9-2) Lipase 33 (11-82) U/L SARS-CoV-2, RNA, NAAT NEGATIVE (NEGATIVE) Administered Medications Discontinued Medications Aspirin (Aspirin Chew 324 Mg) 324 mg PO NOW STA Stop: 07/20/22 14:24 Last Admin: 07/20/22 14:34 Dose: 324 mg Documented By: Nitroglycerin (Nitroglycerin Sl 0.4 Mg/Tab Tab) 0.4 mg SL NOW STA Stop: 07/20/22 14:24 Last Admin: 07/20/22 14:34 Dose: 0.4 mg Documented By: Imaging Data Attestation: I personally reviewed and interpreted this imaging study as follows: My Impression: View chest x-ray was obtained in the emergency department. My interpretation is haziness at the left base, no free air, no definite infiltrate, no change compared to May 26, 2022. Formal report pending. Radiologist's Impression: Chest X-Ray 07/20/22 14:23 XR chest 1V portable CLINICAL HISTORY: Chest pain, nonspecific COMPARISON STUDY: Chest radiograph May 26, 2022. FINDINGS: Old right humeral neck fracture is incidentally noted. There is no pneumothorax or pleural effusion. Opacity along the left heart border favors atelectasis or epicardial fat pad. This is unchanged. Cardiomediastinal silhouette is stable. There is no evidence for pneumonia or pulmonary edema. There has been no change in appearance of the chest. IMPRESSION: No acute cardiopulmonary findings. ACT 112: Negative or not required by law. Electronically signed by: Quincy Aranda M.D. 07/20/2022 2:50 PM Discharge Plan Visit Data Chief Complaint: Chest Pain Stated Complaint: CHEST PAINS AND NUMBNESS IN ARM AND NECK ED Provider: Gómez Snider Discharge Problem: Chest pain, Abnormal EKG Patient Disposition: Being Evaluated by Hospitalist Forms Stand Alone Forms: My [facility] Prescriptions Prescriptions: No Action simvastatin 40 mg tablet 40 mg PO HS levothyroxine 75 mcg tablet 75 mcg PO QAM aspirin 81 mg Tablet,Delayed Release (Dr/Ec) 81 mg PO HS oxybutynin chloride 5 mg tablet extended release 24hr 5 mg PO HS Procrit 10,000 unit/mL solution 10,000 unit subcut MONTHLY PRN (Reason: WHEN NEEDED) Trulicity 0.75 mg/0.5 mL pen injector 0.75 mg SUBCUT WK Rx Instructions: ADMINISTER EVERY MONDAY losartan 25 mg tablet 25 mg PO DAILY Rx Instructions: takes at lunch time famotidine 20 mg tablet 20 mg PO AMHS Veltassa 8.4 gram powder in packet 8.4 g PO Q OTHER DAY nitroglycerin [Nitrostat] 0.6 mg Tablet, Sublingual 0.6 mg sublingual .EVERY 5 MINUTES PRN (Reason: Chest Pain) albuterol sulfate 90 mcg/actuation HFA aerosol inhaler 2 puff INHALATION Q4 PRN (Reason: cogestion,cough,wheeze) biotin 1 mg Capsule 1 mg PO DAILY Referrals Referrals: Milton Balderas MD [Primary Care Provider] -
--- NOTE | 2022-07-20 14:51 | XRay Report ---
XR chest 1V portable CLINICAL HISTORY: Chest pain, nonspecific COMPARISON STUDY: Chest radiograph May 26, 2022. FINDINGS: Old right humeral neck fracture is incidentally noted. There is no pneumothorax or pleural effusion. Opacity along the left heart border favors atelectasis or epicardial fat pad. This is uncha nged. Cardiomediastinal silhouette is stable. There is no evidence for pneumonia or pulmonary edema. There has been no change in appearance of the chest. IMPRESSION: No acute cardiopulmonary findings. ACT 112: Negative or not required by law. Electronically signed by: Quincy Aranda M.D. 07/20/2022 2:50 PM
[2022-07-20 15:02] LABS: Basophils # (auto) 0.08 K/uL (0-0.2); Eosinophils # (auto) 0.23 K/uL (0-0.50); Eosinophils % (auto) 2.9 %; Immature Granulocytes # (auto) 0.02 K/uL (0.01-0.20); Immature Granulocytes % (auto) 0.2 %; Lymphocytes # (auto) 2.41 K/uL (1.2-3.4); Lymphocytes % (auto) 29.9 %; Mean Corpuscular Hemoglobin 30.1 pg (25.0-34.0); Mean Corpuscular Hgb Conc 33.3 g/dL (32.0-36.0); Mean Corpuscular Volume 90.2 fL (80.0-100.0); Mean Platelet Volume 11.1 fL (9.4-12.4); Monocytes # (auto) 0.69 K/uL (0.11-0.59); Monocytes % (auto) 8.6 %; Neutrophils # (auto) 4.62 K/uL (1.40-6.50); Neutrophils % (auto) 57.4 %; Platelet Count 208 K/uL (130-400); RDW Coefficient of Variation 12.1 % (11.5-14.5); RDW Standard Deviation 39.5 fL (36.4-46.3); Red Blood Count 3.66 M/uL (4.20-5.40); White Blood Count 8.05 K/ul (4.8-10.8)
[2022-07-20 15:08] LABS: Alanine Aminotransferase 52 U/L (7-52); Albumin Globulin Ratio 1.4 (0.9-2); Albumin Level 4.2 gm/dl (3.4-5.0); Alkaline Phosphatase 41 U/L (34-104); Anion Gap 5 (3-11); Aspartate Aminotransferase 46 U/L (13-39); BUN Creatinine Ratio 19.4 (10-20); Bilirubin,Total 0.8 mg/dl (0.2-1.0); Blood Urea Nitrogen 28 mg/dl (6-23); Calcium 9.6 mg/dl (8.5-10.1); Carbon Dioxide 27 mmol/L (21-32); Chloride 107 mmol/L (98-107); Est GFR (African American) 38.6 ml/min; Est GFR (Non-African American) 33.3 ml/min; Glucose 156 mg/dl (70-99(Fasting)); Lipase 33 U/L (11-82); Potassium 4.2 mmol/L (3.5-5.1); Sodium 139 mmol/L (136-145); Total Protein 7.2 gm/dl (6.0-8.3)
[2022-07-20 15:14] LABS: Troponin I High Sensitivity 9.7 pg/ml (0-14)
--- NOTE | 2022-07-20 15:49 | History & Physical Report ---
Date of Service July 20, 2022 Assessment & Plan (1) Chest pain: Plan: Patient is 86-year-old female with PMH HTN, dyslipidemia, DM II, CKD III, chronic anemia, DORIS, hypothyroidism presented to ER with complaint of chest pain with radiation to left neck and left shoulder started today while at rest History stress echo 10/23/2020 : Negative for inducible ischemia. Below average exercise tolerance, EF: 60-65%, grade 1 diastolic dysfunction, mild aortic valve sclerosis without stenosis In ER hypertensive with BP's up to 215/80. Initial high-sensitivity troponin: 9.7. EKG sinus rhythm, T wave inversion septal, anterior lateral leads CXR: No acute cardiopulmonary findings In ER given 324mg aspirin, 1 sublingual nitroglycerin with reported relief of chest pain R/O ACS. Risk factors: HTN, hyperlipidemia, DM. DDX: Hypertensive emergency Monitor on telemetry Repeat EKG in am Will trend troponin. Troponin: 9.7-->9.4 Echo Lipid panel in am, continue statin Continue aspirin Nitro prn CP and repeat EKG for CP Increase home losartan from 25 mg to 50 mg daily IV labetalol as needed hypertension N.p.o. midnight Cardiology consult (2) HTN (hypertension): Plan: BP is elevated in ER Increase home losartan from 25 mg to 50 mg daily IV labetalol as needed hypertension (3) DM type 2 (diabetes mellitus, type 2): Plan: A1c: 6.8 on 03/18/2022 Hold home medications NovoLog sliding scale per protocol (4) CKD (chronic kidney disease), stage III: Plan: Cr: 1.4. Baseline creatinine 1.4 per outpatient chart review Monitor renal functions, avoid nephrotoxic agents when possible (5) Dyslipidemia: Plan: Continue simvastatin (6) Chronic anemia: Plan: Hgb: 11. Baseline 10-11 Monitor H&H (7) DORIS on CPAP: Plan: CPAP at bedtime (8) Hypothyroidism: Plan: TSH in a.m. Continue levothyroxine DVT Prophylaxis Heparin SQ Full Code as per discussion with pt Follows with Dr Balderas for routine care Pt was seen and care coordinated with Dr Olivarez. See addendum I spent a total of 78 minutes reviewing notes, outpatient records, labs, medication, documenting and providing care for this patient excluding time spent in the performance of separately billed services. History of Present Illness Chief Complaint: Chest pain Primary Care Provider: Milton Balderas MD Patient is 86-year-old female with PMH HTN, dyslipidemia, DM II, CKD III, chronic anemia, DORIS, hypothyroidism presented to ER with complaint of chest pain started today. History obtained from patient, , and chart review. Patient states today started with chest pressure left side of chest radiated up to left neck and shoulder. This occurred while sitting watching TV around 12:30PM. Denies SOB, diaphoresis, N/V. Was still having chest pain when presented to ER and was given 1 sublingual nitro with reported relief of chest pain. Patient states took her morning medications and also took losartan at lunch today. States for past 9 months has been having fatigue and not walking as much. Patient denies shortness of breath to this provider however it is noted she was referred by her PCP to cardiology for dyspnea on exertion and is to have appointment on 07/22/[address] Howell. Denies fever/chills, diaphoresis, N/V/D/C, BCEKER, dizziness, syncope, vision changes, orthopnea, palpitations, cough, sore throat, rhinorrhea, abdominal pain, paresthesias, extremity weakness, extremity edema, rashes, urinary symptoms. Outpatient chart review 10/23/2020 stress echo: Negative for inducible ischemia, no arrhythmias hypertensive blood pressure response to exercise. Below average exercise tolerance, EF: 60-65%, grade 1 diastolic dysfunction, mild aortic valve sclerosis without stenosis Allergies Allergy/AdvReac Type Severity Reaction Status Date / Time ciprofloxacin Allergy Mild RASH Verified 07/20/22 17:21 BENEDICT Inhibitors AdvReac Intermediate COUGH Verified 07/20/22 17:21 metformin AdvReac Intermediate GI SYMPTOMS Verified 07/20/22 17:21 Home Medications Medication Instructions Recorded Confirmed Type levothyroxine 75 mcg tablet 75 mcg PO QAM 06/11/18 07/20/22 History simvastatin 40 mg tablet 40 mg PO HS 06/11/18 07/20/22 History aspirin 81 mg tablet,delayed 81 mg PO HS 03/27/19 07/20/22 History release dulaglutide 0.75 mg/0.5 mL 0.75 mg subcut WK 03/27/19 07/20/22 History subcutaneous pen injector (Trulicity) epoetin lou 10,000 unit/mL 10,000 unit subcut MONTHLY PRN 03/27/19 07/20/22 History injection solution (Procrit) WHEN NEEDED oxybutynin chloride 5 mg 5 mg PO HS 03/27/19 07/20/22 History tablet,extended release 24 hr losartan 25 mg tablet 25 mg PO DAILY 05/05/21 07/20/22 History albuterol sulfate 90 mcg/actuation 2 puff inhalation Q4 PRN 05/26/22 07/20/22 History aerosol inhaler cogestion,cough,wheeze biotin 1 mg capsule 1 mg PO DAILY 05/26/22 07/20/22 History famotidine 20 mg tablet 20 mg PO AMHS 05/26/22 07/20/22 History nitroglycerin 0.6 mg sublingual 0.6 mg sublingual .EVERY 5 MINUTES 05/26/22 07/20/22 History tablet (Nitrostat) PRN Chest Pain patiromer calcium sorbitex 8.4 8.4 g PO Q OTHER DAY 05/26/22 07/20/22 History gram oral powder packet (Veltassa) Past Med/Surg History Medical History (Updated 07/20/22 @ 17:42 by Michelle Ward PA-C) Anemia due to chronic kidney disease Chronic anemia CKD (chronic kidney disease), stage III DM type 2 (diabetes mellitus, type 2) Dyslipidemia GERD (gastroesophageal reflux disease) HTN (hypertension) Hypothyroidism IgM lambda paraproteinemia DORIS on CPAP Pernicious anemia Surgical History History of appendectomy History of dilation and curettage History of gynecologic surgery anterior colporrhaphy History of hysteroscopy History of knee surgery History of total bilateral knee replacement (TKR) S/P cholecystectomy Status post tubal ligation Family History Mother , 85 Heart disease Diabetes Father , 65 Pancreatic cancer Sister Uterine cancer Breast cancer Denies family history of Ovarian cancer Colorectal cancer Social History Smoking Status: Former smoker Tobacco Type: Cigarettes Second Hand Exposure: No; Hx Alcohol Use: No Hx Substance Use: No Preferred Language: Albanian Communication Ability: Effective Dry Color Tester Required: No Beliefs That Will Affect Care: Advent Advent Beliefs: [employer] LENT marital status: Current Living Situation: Spouse Current Living Situation Comment: at home current occupational status: retired Feels Safe at Home: Yes Safety Concerns: Feels Safe At This Time Assistive Devices: Denture - Upper, Denture - Lower and Glasses Review of Systems Review of Systems: All systems reviewed & are unremarkable except as noted in HPI & below Physical Exam Physical Exam: General: no distress, WDWN Head: normocephalic, atraumatic Eyes: conjunctiva non-injected, anicteric ENT: normal inspection external ears, nose, mucous membranes moist Neck: supple, trachea midline Lungs: clear, no respiratory distress, no wheezing/rhonchi/rales CV: RRR, no murmur, no pretibial edema, no chest wall tenderness to palpation Abd: normal BS, soft, non-tender Ext: no cyanosis, no calf tenderness Neuro: A&O x 3, no focal deficits noted, normal affect Skin: warm, dry Results & Data Results & Data Vital Signs (Past 12 Hours) Vital Signs Temp Pulse Pulse Resp BP BP Pulse Ox 07/20/22 14:34 59 L 07/20/22 14:41 72 20 94 07/20/22 14:25 66 21 197/91 H 97 07/20/22 14:13 36.4 C L 72 16 215/80 H 94 O2 Del Method 07/20/22 14:34 07/20/22 14:41 Room Air 07/20/22 14:25 Room Air 07/20/22 14:13 Room Air Laboratory Results Short CBC 07/20/22 Range/Units 14:26 WBC 8.05 (4.8-10.8) K/ul Hgb 11.0 L (12.0-16.0) g/dl Hct 33.0 L (37.0-47.0) % Plt Count 208 (130-400) K/uL BMP 07/20/22 14:26 Sodium 139 Potassium 4.2 Chloride 107 Carbon Dioxide 27 BUN 28 H Creatinine 1.44 H Glucose 156 H Calcium 9.6 Liver Function 07/20/22 Range/Units 14:26 Total Bilirubin 0.8 (0.2-1.0) mg/dl AST 46 H (13-39) U/L ALT 52 (7-52) U/L Alkaline Phosphatase 41 (34-104) U/L Albumin 4.2 (3.4-5.0) gm/dl Diagnostic Findings Chest X-Ray 07/20/22 14:23 XR chest 1V portable CLINICAL HISTORY: Chest pain, nonspecific COMPARISON STUDY: Chest radiograph May 26, 2022. FINDINGS: Old right humeral neck fracture is incidentally noted. There is no pneumothorax or pleural effusion. Opacity along the left heart border favors atelectasis or epicardial fat pad. This is unchanged. Cardiomediastinal silhouette is stable. There is no evidence for pneumonia or pulmonary edema. There has been no change in appearance of the chest. IMPRESSION: No acute cardiopulmonary findings. ACT 112: Negative or not required by law. Electronically signed by: Quincy Aranda M.D. 07/20/2022 2:50 PM ECG Rate (beats per minute): 64 Findings: + T-wave inversion (Septal, anterior, lateral ) Supervising Physician Co-Signing Physician Notes Patient is an 86-year-old female with history of hypertension, dyslipidemia, diabetes, obstructive sleep apnea on CPAP and other medical problems presents with history of chest pain starting today. Most of the history is obtained from patient's family as patient is a poor historian. She admits to have left-sided chest pain pressure like radiating to neck and shoulder. She was noted to be in hypertensive urgency while in ED, admits to taking her antihypertensives regularly. She denies any recent infections, shortness of breath, dizziness, nausea, vomiting. Please review HPI for complete details of presentation. I personally reviewed blood work, imaging studies and EKG. Chest x-ray showed no acute cardiopulmonary findings. Initial troponin X2 negative. EKG showed sinus bradycardia, ST-T wave changes in anterolateral leads. On exam patient is moderately built and nourished, no apparent distress, normocephalic atraumatic, EOMI, normal breath sounds, clear to auscultation, S1-S2, no murmur, trace peripheral edema, abdomen soft, nontender, normal bowel sounds, alert, awake, oriented, grossly no focal deficits. Patient is admitted for management of chest pain rule out ACS. Hypertensive urgency likely contributing as well. Will trend cardiac enzymes, check resting echo. Continue aspirin. Check lipid panel, A1c. Cardiology consulted. Nitroglycerin patch to help with hypertension. Losartan dose increased to 50 mg daily. N.p.o. after midnight. I personally reviewed the record. Patient is interviewed and examined at bedside. Patient's care is coordinated with Michelle Ward PA-C. Please refer to the documentation above for details of patient's presentation and for discussion of other issues. (1) Chest pain Chest pain type: unspecified Qualified Code(s): R07.9 - Chest pain, unspecified (4) CKD (chronic kidney disease), stage III Chronic kidney disease stage 3 subtype: stage 3b (GFR 30-44) Qualified Code(s): N18.32 - Chronic kidney disease, stage 3b
[2022-07-20] MEDS ORDERED: ACETAMINOPHEN 325 MG TAB PO PRN (17:25)
[2022-07-20] MEDS ORDERED: POLYETHYLENE (MIRALAX) 17 GM PACK PO PRN (17:25)
[2022-07-20] MEDS ORDERED: NITROGLYCERIN SL 0.4 MG/TAB TAB SL PRN (17:25)
[2022-07-20] MEDS ORDERED: ONDANSETRON INJ 2 MG/ML 2 ML VIAL IV PRN (17:25)
[2022-07-20] MEDS ORDERED: LABETALOL HCL IV 5 MG/ML 20ML IV PRN (17:29)
[2022-07-20] MEDS ORDERED: CARBOHYDRATES FOR HYPOGLYCEMIA PO PRN (17:33)
[2022-07-20] MEDS ORDERED: DEXTROSE 50% 50 ML SYRINGE IV PRN (17:33)
[2022-07-20] MEDS ORDERED: GLUCOSE 40% GEL 15 GM TUBE PO PRN (17:33)
[2022-07-20] MEDS ORDERED: GLUCAGON FOR INJ 1 MG VIAL SQ PRN (17:33)
[2022-07-20] MEDS ORDERED: GLUCOSE 10 TAB/TUBE PO PRN (17:33)
[2022-07-20] MEDS: OXYBUTYNIN CHLORIDE XL 5 MG TABCR PO SCH (20:27)
[2022-07-20] MEDS: FAMOTIDINE 20 MG TAB PO SCH (20:28)
[2022-07-20] MEDS: INSULIN ASPART PER UNIT CHARGE SC SCH (20:46)
[2022-07-20] MEDS: NITROGLYCERIN 2% OINTMENT 30GM TUBE EXT SCH (20:50)
[2022-07-20] MEDS: HEPARIN SOD 5,000 UNIT/0.5 ML VIAL SQ SCH (20:56)
[2022-07-20] MEDS ORDERED: SIMVASTATIN 40 MG TAB PO SCH (21:00)
[2022-07-21] MEDS: NITROGLYCERIN 2% OINTMENT 30GM TUBE EXT SCH ×2 (02:10→10:40)
[2022-07-21] MEDS: LEVOTHYROXINE SODIUM 75 MCG TABLET PO SCH (05:27)
[2022-07-21 06:21] LABS: Hemoglobin 9.3 g/dl (12.0-16.0); Mean Corpuscular Hemoglobin 29.7 pg (25.0-34.0); Mean Corpuscular Hgb Conc 33.2 g/dL (32.0-36.0); Mean Corpuscular Volume 89.5 fL (80.0-100.0); Mean Platelet Volume 11.2 fL (9.4-12.4); Platelet Count 177 K/uL (130-400); RDW Coefficient of Variation 12.2 % (11.5-14.5); RDW Standard Deviation 39.2 fL (36.4-46.3); Red Blood Count 3.13 M/uL (4.20-5.40); White Blood Count 7.18 K/ul (4.8-10.8)
[2022-07-21 06:33] LABS: BUN Creatinine Ratio 20.4 (10-20); Calcium 8.7 mg/dl (8.5-10.1); Chol HDL Ratio 2.4 (0-5); Creatinine Clr Calc Pharmacy 31.9 ml/min; Est GFR (African American) 39.2 ml/min; Est GFR (Non-African American) 33.8 ml/min; Potassium 4.3 mmol/L (3.5-5.1)
[2022-07-21 06:39] LABS: Troponin I High Sensitivity 10.1 pg/ml (0-14)
[2022-07-21] MEDS: LOSARTAN POTASSIUM 50 MG TAB PO SCH (08:31)
[2022-07-21] MEDS: FAMOTIDINE 20 MG TAB PO SCH ×2 (08:31→20:57)
[2022-07-21] MEDS: HEPARIN SOD 5,000 UNIT/0.5 ML VIAL SQ SCH ×2 (08:32→20:56)
--- NOTE | 2022-07-21 08:43 | Cardiology Consultation ---
Date of Consultation July 21, 2022 Assessment & Plan (1) Chest pain: (2) Abnormal EKG: (3) DORIS on CPAP: (4) HTN (hypertension): (5) Chronic anemia: Plan 86-year-old female with labile blood pressures presenting with chest pain and hypertension. No acute EKG changes though chronically abnormal. Troponins are initially negative x3. Echocardiogram demonstrates preserved LV systolic function Recent symptoms of exertional fatigue and dyspnea Plan: Optimize medical therapy. Losartan already increased to 50 mg/day. We will add amlodipine 2.5 mg nightly for additional blood pressure control. Change simvastatin to rosuvastatin to allow adjustments. Continue telemetry given relative bradycardia question component of symptoms of fatigue. Avoid AV alfredo blocking drug Patient scheduled for dobutamine stress echocardiogram in a.m. after adjustments in therapies. Notable hemoglobin drop overnight CBC also ordered for a.m. History of Present Illness Reason for Consultation: Chest pain Requesting Physician: Dr. Angel Attending Physician: Edil Angel MD History of Present Illness Patient is an 86-year-old female with ongoing cardiac and medical issues as below 1. Type 2 diabetes 2. Obstructive sleep apnea, CPAP 3. Hypertension 4. Dyslipidemia 5. B12 deficiency 6. 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 Nonsustained supraventricular tachycardia and PAC's 8. Aortic valve sclerosis without stenosis Patient is referred after hospitalization last evening with symptoms of chest pain radiating to the left side of her neck while sitting quietly. Symptoms resolved after nitroglycerin administration. But were waning on ER presentation per patient. EKG is abnormal but unchanged from prior studies Troponin negative x3 Blood pressure significant elevated on presentation. Patient has been complaining of fatigue as well as exertional dyspnea times several months. Attributes this to RSV infection in March with slow recovery. No prior history of myocardial infarction, congestive heart failure. No bleeding difficulties though hemoglobin dropped overnight No current fevers chills or unexplained infections Does admit blood pressure is labile at home Sedentary as appropriate for age No further chest pain overnight. Currently comfortable without complaint. General complaints are notable fatigue Appetite only fair able to take medications without difficulty. No fevers or chills Echocardiogram demonstrates preserved LV systolic function without wall motion abnormality Stress nuclear imaging December 2020 negative for ischemia Allergies Allergy/AdvReac Type Severity Reaction Status Date / Time ciprofloxacin Allergy Mild RASH Verified 07/20/22 17:21 BENEDICT Inhibitors AdvReac Intermediate COUGH Verified 07/20/22 17:21 metformin AdvReac Intermediate GI SYMPTOMS Verified 07/20/22 17:21 Home Medications Medication Instructions Recorded Confirmed Type levothyroxine 75 mcg tablet 75 mcg PO QAM 06/11/18 07/20/22 History simvastatin 40 mg tablet 40 mg PO HS 06/11/18 07/20/22 History aspirin 81 mg tablet,delayed 81 mg PO HS 03/27/19 07/20/22 History release dulaglutide 0.75 mg/0.5 mL 0.75 mg subcut WK 03/27/19 07/20/22 History subcutaneous pen injector (Trulicity) epoetin lou 10,000 unit/mL 10,000 unit subcut MONTHLY PRN 03/27/19 07/20/22 History injection solution (Procrit) WHEN NEEDED oxybutynin chloride 5 mg 5 mg PO HS 03/27/19 07/20/22 History tablet,extended release 24 hr losartan 25 mg tablet 25 mg PO DAILY 05/05/21 07/20/22 History albuterol sulfate 90 mcg/actuation 2 puff inhalation Q4 PRN 05/26/22 07/20/22 History aerosol inhaler cogestion,cough,wheeze biotin 1 mg capsule 1 mg PO DAILY 05/26/22 07/20/22 History famotidine 20 mg tablet 20 mg PO AMHS 05/26/22 07/20/22 History nitroglycerin 0.6 mg sublingual 0.6 mg sublingual .EVERY 5 MINUTES 05/26/22 07/20/22 History tablet (Nitrostat) PRN Chest Pain patiromer calcium sorbitex 8.4 8.4 g PO Q OTHER DAY 05/26/22 07/20/22 History gram oral powder packet (Veltassa) Patient History Medical History Anemia due to chronic kidney disease Chronic anemia CKD (chronic kidney disease), stage III DM type 2 (diabetes mellitus, type 2) Dyslipidemia GERD (gastroesophageal reflux disease) HTN (hypertension) Hypothyroidism IgM lambda paraproteinemia DORIS on CPAP Pernicious anemia Surgical History History of appendectomy History of dilation and curettage History of gynecologic surgery anterior colporrhaphy History of hysteroscopy History of knee surgery History of total bilateral knee replacement (TKR) S/P cholecystectomy Status post tubal ligation Family History Mother , 85 Heart disease Diabetes Father , 65 Pancreatic cancer Sister Uterine cancer Breast cancer Denies family history of Ovarian cancer Colorectal cancer Social History Smoking Status: Former smoker Tobacco Type: Cigarettes Second Hand Exposure: No; Hx Alcohol Use: No Hx Substance Use: No Preferred Language: Turkmen Communication Ability: Effective Sleep Manager Required: No Beliefs That Will Affect Care: Adventist Adventist Beliefs: [employer] LENT marital status: Current Living Situation: Spouse Current Living Situation Comment: at home current occupational status: retired Feels Safe at Home: Yes Safety Concerns: Feels Safe At This Time Assistive Devices: Denture - Upper, Denture - Lower and Glasses Review of Systems Review of Systems: All systems reviewed & are unremarkable except as noted in HPI & below Physical Exam Constitutional: + thin; no acute distress Eyes: PERRL, conjunctivae normal, anicteric sclerae ENMT: external ear and nose normal, oropharynx normal Respiratory: normal respiratory effort, lungs clear to auscultation Cardiovascular: RRR, no murmur, no edema Gastrointestinal (Abdomen): normal bowel sounds, soft, nontender, no hepatosplenomegaly Musculoskeletal: no cyanosis or clubbing, extremities motor strength 5/5 Neurologic: PERRL, EOMI, accommodation nl, no face palsy, no dysarthria Results & Data Vital Signs (Past 12 Hours) Vital Signs Temp Pulse Pulse Resp BP Pulse Ox O2 Del Method 07/21/22 06:48 36.7 C 59 L 18 145/65 H 95 Room Air 07/21/22 02:42 36.6 C 60 18 119/60 94 Room Air 07/20/22 23:00 78 07/20/22 22:48 36.5 C 52 L 18 150/65 H 96 Room Air Laboratory Results Laboratory Results - last 24 hr 07/20/22 07/20/22 07/20/22 14:26 14:26 14:27 WBC 8.05 RBC 3.66 L Hgb 11.0 L Hct 33.0 L MCV 90.2 MCH 30.1 MCHC 33.3 RDW Std Deviation 39.5 RDW Coeff of Elpidio 12.1 Plt Count 208 MPV 11.1 Immature Gran % (Auto) 0.2 Neut % (Auto) 57.4 Lymph % (Auto) 29.9 [place] % (Auto) 8.6 Eos % (Auto) 2.9 Baso % (Auto) 1.0 Neut # (Auto) 4.62 Lymph # (Auto) 2.41 [place] # (Auto) 0.69 H Eos # (Auto) 0.23 Baso # (Auto) 0.08 Immature Gran # (Auto) 0.02 Sodium 139 Potassium 4.2 Chloride 107 Carbon Dioxide 27 Anion Gap 5 BUN 28 H Creatinine 1.44 H Est Cr Clr Drug Dosing Not Reportable Est GFR ( Amer) 38.6 Est GFR (Non-Af Amer) 33.3 BUN/Creatinine Ratio 19.4 Glucose 156 H POC Glucose Estimat Average Glucose Hemoglobin A1c Calcium 9.6 Total Bilirubin 0.8 AST 46 H ALT 52 Alkaline Phosphatase 41 Troponin I High Sens 9.7 Total Protein 7.2 Albumin 4.2 Globulin 3.0 Albumin/Globulin Ratio 1.4 Triglycerides Cholesterol LDL Cholesterol, Calc VLDL Cholesterol, Calc HDL Cholesterol Cholesterol/HDL Ratio Lipase 33 TSH SARS-CoV-2, RNA, NAAT NEGATIVE 07/20/22 07/20/22 07/20/22 16:36 20:06 22:12 WBC RBC Hgb Hct MCV MCH MCHC RDW Std Deviation RDW Coeff of Elpidio Plt Count MPV Immature Gran % (Auto) Neut % (Auto) Lymph % (Auto) [place] % (Auto) Eos % (Auto) Baso % (Auto) Neut # (Auto) Lymph # (Auto) [place] # (Auto) Eos # (Auto) Baso # (Auto) Immature Gran # (Auto) Sodium Potassium Chloride Carbon Dioxide Anion Gap BUN Creatinine Est Cr Clr Drug Dosing Est GFR ( Amer) Est GFR (Non-Af Amer) BUN/Creatinine Ratio Glucose POC Glucose 163 H Estimat Average Glucose Hemoglobin A1c Calcium Total Bilirubin AST ALT Alkaline Phosphatase Troponin I High Sens 9.4 10.0 Total Protein Albumin Globulin Albumin/Globulin Ratio Triglycerides Cholesterol LDL Cholesterol, Calc VLDL Cholesterol, Calc HDL Cholesterol Cholesterol/HDL Ratio Lipase TSH SARS-CoV-2, RNA, NAAT 07/21/22 07/21/22 07/21/22 05:34 05:34 05:34 WBC 7.18 RBC 3.13 L Hgb 9.3 L Hct 28.0 L MCV 89.5 MCH 29.7 MCHC 33.2 RDW Std Deviation 39.2 RDW Coeff of Elpidio 12.2 Plt Count 177 MPV 11.2 Immature Gran % (Auto) Neut % (Auto) Lymph % (Auto) [place] % (Auto) Eos % (Auto) Baso % (Auto) Neut # (Auto) Lymph # (Auto) [place] # (Auto) Eos # (Auto) Baso # (Auto) Immature Gran # (Auto) Sodium 141 Potassium 4.3 Chloride 110 H Carbon Dioxide 23 Anion Gap 8 BUN 29 H Creatinine 1.42 H Est Cr Clr Drug Dosing 31.9 Est GFR ( Amer) 39.2 Est GFR (Non-Af Amer) 33.8 BUN/Creatinine Ratio 20.4 H Glucose 127 H POC Glucose Estimat Average Glucose 163 Hemoglobin A1c 7.3 H Calcium 8.7 Total Bilirubin AST ALT Alkaline Phosphatase Troponin I High Sens 10.1 Total Protein Albumin Globulin Albumin/Globulin Ratio Triglycerides 152 H Cholesterol 115 LDL Cholesterol, Calc 37 VLDL Cholesterol, Calc 30 HDL Cholesterol 48 Cholesterol/HDL Ratio 2.4 Lipase TSH SARS-CoV-2, RNA, NAAT 07/21/22 07/21/22 05:34 07:45 WBC RBC Hgb Hct MCV MCH MCHC RDW Std Deviation RDW Coeff of Elpidio Plt Count MPV Immature Gran % (Auto) Neut % (Auto) Lymph % (Auto) [place] % (Auto) Eos % (Auto) Baso % (Auto) Neut # (Auto) Lymph # (Auto) [place] # (Auto) Eos # (Auto) Baso # (Auto) Immature Gran # (Auto) Sodium Potassium Chloride Carbon Dioxide Anion Gap BUN Creatinine Est Cr Clr Drug Dosing Est GFR ( Amer) Est GFR (Non-Af Amer) BUN/Creatinine Ratio Glucose POC Glucose 137 H Estimat Average Glucose Hemoglobin A1c Calcium Total Bilirubin AST ALT Alkaline Phosphatase Troponin I High Sens Total Protein Albumin Globulin Albumin/Globulin Ratio Triglycerides Cholesterol LDL Cholesterol, Calc VLDL Cholesterol, Calc HDL Cholesterol Cholesterol/HDL Ratio Lipase TSH 4.304 SARS-CoV-2, RNA, NAAT (1) Chest pain Chest pain type: unspecified Qualified Code(s): R07.9 - Chest pain, unspecified
[2022-07-21 08:53] LABS: Estimated Average Glucose 163 mg/dl; Hemoglobin A1C 7.3 % (4.5-5.6)
[2022-07-21] MEDS: INSULIN ASPART PER UNIT CHARGE SC SCH ×4 (09:00→22:13)
[2022-07-21] MEDS: ASPIRIN 81 MG ECTAB PO SCH (09:08)
[2022-07-21] MEDS: ISOSORBIDE MONO EXTENDED REL 30 MG TABCR PO SCH (12:25)
--- NOTE | 2022-07-21 13:06 | Hospitalist Progress Note ---
Date of Service July 21, 2022 Assessment & Plan (1) Chest pain: Plan: Patient is 86-year-old female with PMH HTN, dyslipidemia, DM II, CKD III, chronic anemia, DORIS, hypothyroidism presented to ER with complaint of chest pain with radiation to left neck and left shoulder started today while at rest History stress echo 10/23/2020 : Negative for inducible ischemia. Below average exercise tolerance, EF: 60-65%, grade 1 diastolic dysfunction, mild aortic valve sclerosis without stenosis In ER hypertensive with BP's up to 215/80. Initial high-sensitivity troponin x3 negative. EKG sinus rhythm, T wave inversion septal, anterior lateral leads CXR: No acute cardiopulmonary findings In ER given 324mg aspirin, 1 sublingual nitroglycerin with reported relief of chest pain Patient was then admitted to telemetry floor Cardiology recommendation appreciated. Patient to undergo stress echocardiogram in a.m. (2) Hypertensive urgency: Plan: Noted to have significant hypertension on presentation. Losartan increased to 50 mg/day and amlodipine 2.5 mg added Telemetry shows sinus bradycardia; avoid AV alfredo blocking agents (3) DM type 2 (diabetes mellitus, type 2): Plan: A1c: 7.3% ; appropriate for her age and comorbid condition. Hold home medications NovoLog sliding scale per protocol (4) CKD (chronic kidney disease), stage III: Plan: Cr: 1.4. Baseline creatinine 1.4 per outpatient chart review Monitor renal functions, avoid nephrotoxic agents when possible (5) Dyslipidemia: Plan: Changed to rosuvastatin as per GI. (6) Chronic anemia: Plan: Slight downtrend in the hemoglobin noted. No active signs of bleeding. Monitor for now (7) DORIS on CPAP: Plan: CPAP at bedtime (8) Hypothyroidism: Plan: TSH 4.3; which is within normal limits. Continue levothyroxine DVT Prophylaxis Heparin SQ Full Code as per discussion with pt Follows with Dr Balderas for routine care Admission and Anticipated Discharge Date Admission Date: July 20, 2022 Subjective Patient seen and examined at bedside. She is sitting up on the bed; not in any distress. Reports no episode of chest pain presently. Telemetry shows sinus bradycardia; no arrhythmia noted. Review of Systems Review of Systems: All systems reviewed & are unremarkable except as noted in Subjective Physical Exam Physical Exam: General: no distress, WDWN Head: normocephalic, atraumatic Eyes: conjunctiva non-injected, anicteric ENT: normal inspection external ears, nose, mucous membranes moist Neck: supple, trachea midline Lungs: clear, no respiratory distress, no wheezing/rhonchi/rales CV: RRR, no murmur, no pretibial edema, no chest wall tenderness to palpation Abd: normal BS, soft, non-tender Ext: no cyanosis, no calf tenderness Neuro: A&O x 3, no focal deficits noted, normal affect Skin: warm, dry Results & Data Results & Data Vital Signs (Past 12 Hours) Vital Signs Temp Pulse Resp BP Pulse Ox O2 Del Method 07/21/22 11:38 36.6 C 52 L 18 137/65 96 Room Air 07/21/22 06:48 36.7 C 59 L 18 145/65 H 95 Room Air 07/21/22 02:42 36.6 C 60 18 119/60 94 Room Air Laboratory Results Laboratory Results WBC 7.18 K/ul (4.8-10.8) 07/21/22 05:34 RBC 3.13 M/uL (4.20-5.40) L 07/21/22 05:34 Hgb 9.3 g/dl (12.0-16.0) L 07/21/22 05:34 Hct 28.0 % (37.0-47.0) L 07/21/22 05:34 MCV 89.5 fL (80.0-100.0) 07/21/22 05:34 MCH 29.7 pg (25.0-34.0) 07/21/22 05:34 MCHC 33.2 g/dL (32.0-36.0) 07/21/22 05:34 RDW Std Deviation 39.2 fL (36.4-46.3) 07/21/22 05:34 RDW Coeff of Elpidio 12.2 % (11.5-14.5) 07/21/22 05:34 Plt Count 177 K/uL (130-400) 07/21/22 05:34 MPV 11.2 fL (9.4-12.4) 07/21/22 05:34 Immature Gran % (Auto) 0.2 % 07/20/22 14:26 Neut % (Auto) 57.4 % 07/20/22 14:26 Lymph % (Auto) 29.9 % 07/20/22 14:26 Gilliam % (Auto) 8.6 % 07/20/22 14: Eos % (Auto) 2.9 % 07/20/22 14: Baso % (Auto) 1.0 % 07/20/22 14: Neut # (Auto) 4.62 K/uL (1.40-6.50) 07/20/22 14: Lymph # (Auto) 2.41 K/uL (1.2-3.4) 07/20/22 14: Gilliam # (Auto) 0.69 K/uL (0.11-0.59) H 07/20/22 14: Eos # (Auto) 0.23 K/uL (0-0.50) 07/20/22 14: Baso # (Auto) 0.08 K/uL (0-0.2) 07/20/22 14: Immature Gran # (Auto) 0.02 K/uL (0.01-0.20) 07/20/22 14:26 Sodium 141 mmol/L (136-145) 07/21/22 05:34 Potassium 4.3 mmol/L (3.5-5.1) 07/21/22 05:34 Chloride 110 mmol/L (98-107) H 07/21/22 05:34 Carbon Dioxide 23 mmol/L (21-32) 07/21/22 05:34 Anion Gap 8 (3-11) 07/21/22 05:34 BUN 29 mg/dl (6-23) H 07/21/22 05:34 Creatinine 1.42 mg/dl (0.6-1.2) H 07/21/22 05:34 Est Cr Clr Drug Dosing 31.9 ml/min 07/21/22 05:34 Est GFR ( Amer) 39.2 ml/min 07/21/22 05:34 Est GFR (Non-Af Amer) 33.8 ml/min 07/21/22 05:34 BUN/Creatinine Ratio 20.4 (10-20) H 07/21/22 05:34 Glucose 127 mg/dl (70-99(Fasting)) H 07/21/22 05:34 POC Glucose 168 mg/dl (70-99) H 07/21/22 11:48 Estimat Average Glucose 163 mg/dl 07/21/22 05:34 Hemoglobin A1c 7.3 % (4.5-5.6) H 07/21/22 05:34 Calcium 8.7 mg/dl (8.5-10.1) 07/21/22 05:34 Total Bilirubin 0.8 mg/dl (0.2-1.0) 07/20/22 14:26 AST 46 U/L (13-39) H 07/20/22 14:26 ALT 52 U/L (7-52) 07/20/22 14:26 Alkaline Phosphatase 41 U/L (34-104) 07/20/22 14:26 Troponin I High Sens 10.1 pg/ml (0-14) 07/21/22 05:34 Total Protein 7.2 gm/dl (6.0-8.3) 07/20/22 14:26 Albumin 4.2 gm/dl (3.4-5.0) 07/20/22 14:26 Globulin 3.0 gm/dl (2.5-4.0) 07/20/22 14:26 Albumin/Globulin Ratio 1.4 (0.9-2) 07/20/22 14:26 Triglycerides 152 mg/dl (0-150) H 07/21/22 05:34 Cholesterol 115 mg/dl (0-200) 07/21/22 05:34 LDL Cholesterol, Calc 37 mg/dl 07/21/22 05:34 VLDL Cholesterol, Calc 30 mg/dl (0-30) 07/21/22 05:34 HDL Cholesterol 48 mg/dl 07/21/22 05:34 Cholesterol/HDL Ratio 2.4 (0-5) 07/21/22 05:34 Lipase 33 U/L (11-82) 07/20/22 14:26 TSH 4.304 uIu/ml (0.300-4.500) 07/21/22 05:34 SARS-CoV-2, RNA, NAAT NEGATIVE (NEGATIVE) 07/20/22 14:27 Impressions Chest X-Ray 07/20/22 14:23 XR chest 1V portable CLINICAL HISTORY: Chest pain, nonspecific COMPARISON STUDY: Chest radiograph May 26, 2022. FINDINGS: Old right humeral neck fracture is incidentally noted. There is no pneumothorax or pleural effusion. Opacity along the left heart border favors atelectasis or epicardial fat pad. This is unchanged. Cardiomediastinal silhouette is stable. There is no evidence for pneumonia or pulmonary edema. There has been no change in appearance of the chest. IMPRESSION: No acute cardiopulmonary findings. ACT 112: Negative or not required by law. Electronically signed by: Quincy Aranda M.D. 07/20/2022 2:50 PM (1) Chest pain Chest pain type: unspecified Qualified Code(s): R07.9 - Chest pain, unspecified (4) CKD (chronic kidney disease), stage III Chronic kidney disease stage 3 subtype: stage 3b (GFR 30-44) Qualified Code(s): N18.32 - Chronic kidney disease, stage 3b
[2022-07-21] MEDS ORDERED: PATIROMER CALCIUM SORBITEX 8.4 GM PACK PO SCH (17:45)
[2022-07-21] MEDS: OXYBUTYNIN CHLORIDE XL 5 MG TABCR PO SCH (20:57)
[2022-07-21] MEDS ORDERED: ROSUVASTATIN CALCIUM 5 MG TAB PO SCH (21:00)
[2022-07-21] MEDS ORDERED: amLODIPine BESYLATE 5 MG TAB PO SCH (21:00)
[2022-07-22] MEDS ORDERED: Nursing to Pharmacy Communication SCH (05:45)
[2022-07-22] MEDS ORDERED: INSULIN ASPART PER UNIT CHARGE SC SCH (06:00)
[2022-07-22] MEDS: LEVOTHYROXINE SODIUM 75 MCG TABLET PO SCH (06:10)
[2022-07-22 06:31] LABS: Basophils # (auto) 0.06 K/uL (0-0.2); Basophils % (auto) 0.7 %; Eosinophils # (auto) 0.24 K/uL (0-0.50); Hematocrit (blood only) 28.4 % (37.0-47.0); Hemoglobin 9.5 g/dl (12.0-16.0); Immature Granulocytes # (auto) 0.01 K/uL (0.01-0.20); Immature Granulocytes % (auto) 0.1 %; Lymphocytes # (auto) 2.27 K/uL (1.2-3.4); Lymphocytes % (auto) 28.2 %; Mean Corpuscular Hemoglobin 30.2 pg (25.0-34.0); Mean Corpuscular Hgb Conc 33.5 g/dL (32.0-36.0); Mean Corpuscular Volume 90.2 fL (80.0-100.0); Monocytes # (auto) 0.74 K/uL (0.11-0.59); Monocytes % (auto) 9.2 %; Neutrophils # (auto) 4.73 K/uL (1.40-6.50); Neutrophils % (auto) 58.8 %; Platelet Count 164 K/uL (130-400); RDW Standard Deviation 39.5 fL (36.4-46.3); Red Blood Count 3.15 M/uL (4.20-5.40); White Blood Count 8.05 K/ul (4.8-10.8)
[2022-07-22 06:41] LABS: Albumin Globulin Ratio 1.3 (0.9-2); Albumin Level 3.5 gm/dl (3.4-5.0); BUN Creatinine Ratio 18.7 (10-20); Calcium 9.4 mg/dl (8.5-10.1); Creatinine Clr Calc Pharmacy 29.2 ml/min; Est GFR (African American) 36.7 ml/min; Est GFR (Non-African American) 31.7 ml/min; Globulin 2.6 gm/dl (2.5-4.0); Potassium 4.2 mmol/L (3.5-5.1); Total Protein 6.1 gm/dl (6.0-8.3)
[2022-07-22] MEDS: ASPIRIN 81 MG ECTAB PO SCH (08:24)
[2022-07-22] MEDS: LOSARTAN POTASSIUM 50 MG TAB PO SCH (08:24)
[2022-07-22] MEDS: FAMOTIDINE 20 MG TAB PO SCH (08:24)
[2022-07-22] MEDS ORDERED: METOPROLOL TARTRATE 1 MG/ML VIAL IV ONE (09:13)
[2022-07-22] MEDS ORDERED: ATROPINE SULFATE 0.1 MG/ML 10ML SYR IV ONE (09:13)
[2022-07-22] MEDS ORDERED: DOBUTamine HCL 12.5 MG/ML 20 ML VIAL IV ONE (09:13)
--- NOTE | 2022-07-22 10:38 | Cardiology Progress Note ---
Date of Service July 22, 2022 Assessment & Plan (1) Chest pain: (2) Abnormal EKG: (3) DORIS on CPAP: (4) HTN (hypertension): (5) Chronic anemia: Plan 86-year-old female with labile blood pressures presenting with chest pain and hypertension. No acute EKG changes though chronically abnormal. Troponins are initially negative x3. Echocardiogram demonstrates preserved LV systolic function Recent symptoms of exertional fatigue and dyspnea Impression: No evidence of myocardial ischemia by dobutamine stress echocardiogram but with hypertensive blood pressure response Plan: Continue current medications. No bradycardia arrhythmias observed overnight. We will trial low-dose beta-suresh metoprolol succinate 12.5mg/day in addition to multiple medication changes already made, reduce losartan back to 25 mg/day If patient ambulatory stable for discharge with follow-up cardiology 2 to 3 weeks time Admission and Anticipated Discharge Date Admission Date: July 21, 2022 Subjective Patient seen and examined, chart, medications, telemetry reviewed. Slept well overnight no chest pains or worsening shortness of breath no dizziness or lightheadedness. Blood pressure improved Review of Systems Review of Systems: All systems reviewed & are unremarkable except as noted in Subjective Physical Exam Constitutional: + thin; no acute distress Eyes: PERRL, conjunctivae normal, anicteric sclerae ENMT: external ear and nose normal, oropharynx normal Respiratory: normal respiratory effort, lungs clear to auscultation Cardiovascular: RRR, no murmur, no edema Gastrointestinal (Abdomen): normal bowel sounds, soft, nontender, no hepatosplenomegaly Musculoskeletal: no cyanosis or clubbing, extremities motor strength 5/5 Neurologic: PERRL, EOMI, accommodation nl, no face palsy, no dysarthria Results & Data Vital Signs (Past 12 Hours) Vital Signs Temp Pulse Pulse Resp BP Pulse Ox O2 Del Method 07/22/22 08:10 36.8 C 62 18 106/51 L 95 Room Air 07/22/22 03:50 36.9 C 69 16 135/67 93 Room Air 07/21/22 23:00 36.6 C 59 L 16 137/66 94 Room Air 07/21/22 23:35 57 L Laboratory Results Laboratory Results - last 24 hr 07/21/22 07/21/22 07/21/22 11:48 16:53 20:34 WBC RBC Hgb Hct MCV MCH MCHC RDW Std Deviation RDW Coeff of Elpidio Plt Count MPV Immature Gran % (Auto) Neut % (Auto) Lymph % (Auto) [place] % (Auto) Eos % (Auto) Baso % (Auto) Neut # (Auto) Lymph # (Auto) [place] # (Auto) Eos # (Auto) Baso # (Auto) Immature Gran # (Auto) Sodium Potassium Chloride Carbon Dioxide Anion Gap BUN Creatinine Est Cr Clr Drug Dosing Est GFR ( Amer) Est GFR (Non-Af Amer) BUN/Creatinine Ratio Glucose POC Glucose 168 H 147 H 113 H Calcium Total Bilirubin AST ALT Alkaline Phosphatase Total Protein Albumin Globulin Albumin/Globulin Ratio 07/22/22 07/22/22 07/22/22 05:30 05:47 05:47 WBC 8.05 RBC 3.15 L Hgb 9.5 L Hct 28.4 L MCV 90.2 MCH 30.2 MCHC 33.5 RDW Std Deviation 39.5 RDW Coeff of Elpidio 12.0 Plt Count 164 MPV 11.0 Immature Gran % (Auto) 0.1 Neut % (Auto) 58.8 Lymph % (Auto) 28.2 [place] % (Auto) 9.2 Eos % (Auto) 3.0 Baso % (Auto) 0.7 Neut # (Auto) 4.73 Lymph # (Auto) 2.27 [place] # (Auto) 0.74 H Eos # (Auto) 0.24 Baso # (Auto) 0.06 Immature Gran # (Auto) 0.01 Sodium 139 Potassium 4.2 Chloride 109 H Carbon Dioxide 24 Anion Gap 6 BUN 28 H Creatinine 1.50 H Est Cr Clr Drug Dosing 29.2 Est GFR ( Amer) 36.7 Est GFR (Non-Af Amer) 31.7 BUN/Creatinine Ratio 18.7 Glucose 143 H POC Glucose 150 H Calcium 9.4 Total Bilirubin 1.0 AST 30 ALT 37 Alkaline Phosphatase 33 L Total Protein 6.1 Albumin 3.5 Globulin 2.6 Albumin/Globulin Ratio 1.3 Diagnostic Findings Dobutamine stress echocardiography Study negative for ischemia with hypertensive blood pressure response. Patient reached greater than 90% age-predicted maximal heart without ischemic EKG or echocardiographic finding Hyperdynamic overall LV systolic (1) Chest pain Chest pain type: unspecified Qualified Code(s): R07.9 - Chest pain, unspecified
[2022-07-22] MEDS ORDERED: METOPROLOL SUCC 25MG EXT REL TAB PO SCH (10:45)
[2022-07-22] MEDS: ISOSORBIDE MONO EXTENDED REL 30 MG TABCR PO SCH (12:27)
--- NOTE | 2022-07-22 16:16 | Discharge Summary ---
Date of Service July 22, 2022 Admission HPI Per Admitting Provider Patient is 86-year-old female with PMH HTN, dyslipidemia, DM II, CKD III, chronic anemia, DORIS, hypothyroidism presented to ER with complaint of chest pain started today. History obtained from patient, , and chart review. Patient states today started with chest pressure left side of chest radiated up to left neck and shoulder. This occurred while sitting watching TV around 12:30PM. Denies SOB, diaphoresis, N/V. Was still having chest pain when presented to ER and was given 1 sublingual nitro with reported relief of chest pain. Patient states took her morning medications and also took losartan at lunch today. States for past 9 months has been having fatigue and not walking as much. Patient denies shortness of breath to this provider however it is noted she was referred by her PCP to cardiology for dyspnea on exertion and is to have appointment on 07/22/[address] Howell. Denies fever/chills, diaphoresis, N/V/D/C, BECKER, dizziness, syncope, vision changes, orthopnea, palpitations, cough, sore throat, rhinorrhea, abdominal pain, paresthesias, extremity weakness, extremity edema, rashes, urinary symptoms. Outpatient chart review 10/23/2020 stress echo: Negative for inducible ischemia, no arrhythmias hypertensive blood pressure response to exercise. Below average exercise tolerance, EF: 60-65%, grade 1 diastolic dysfunction, mild aortic valve sclerosis without stenosis Admission Exam Per Admitting Provider General: no distress, WDWN Head: normocephalic, atraumatic Eyes: conjunctiva non-injected, anicteric ENT: normal inspection external ears, nose, mucous membranes moist Neck: supple, trachea midline Lungs: clear, no respiratory distress, no wheezing/rhonchi/rales CV: RRR, no murmur, no pretibial edema, no chest wall tenderness to palpation Abd: normal BS, soft, non-tender Ext: no cyanosis, no calf tenderness Neuro: A&O x 3, no focal deficits noted, normal affect Skin: warm, dry Principal Diagnosis Chest pain, ACS rule out Discharge Exam Constitutional: WD/WN, vitals as above, NAD, sitting up in bed, pleasant, conversing easily Respiratory: normal respiratory effort, lungs clear to auscultation, no wheeze, rales, rhonchi. Normal insp/exp effort, no accessory muscle use Cardiovascular: RRR, no murmur, no edema Vessels: no JVD or carotid bruit Chest: normal inspection of chest Abdomen: normal bowel sounds, soft, nontender, no hepatosplenomegaly Musculoskeletal: no cyanosis or clubbing, extremities motor strength 5/5 Skin: no rashes, warm and dry normal turgor Neurologic: PERRL, EOMI, accommodation nl, no face palsy, no dysarthria CN's II- XI intact bilaterally and moves all extremities Psychiatric: A+Ox3, euthymic affect Lymphatic: no cervical or axillary lymphadenopathy : deferred Discharge Data Allergies Allergy/AdvReac Type Severity Reaction Status Date / Time ciprofloxacin Allergy Mild RASH Verified 07/20/22 17:21 BENEDICT Inhibitors AdvReac Intermediate COUGH Verified 07/20/22 17:21 metformin AdvReac Intermediate GI SYMPTOMS Verified 07/20/22 17:21 Consultations 07/20/22 15:43 ED Decision to Admit Stat 07/20/22 16:33 Consult Cardiology Routine Hospital Course (1) Chest pain: (2) Hypertensive urgency: (3) DM type 2 (diabetes mellitus, type 2): (4) CKD (chronic kidney disease), stage III: (5) Dyslipidemia: (6) Chronic anemia: (7) DORIS on CPAP: (8) Hypothyroidism: Plan Patient is 86-year-old female with PMH HTN, dyslipidemia, DM II, CKD III, chronic anemia, DORIS, hypothyroidism presented to ER with complaint of chest pain with radiation to left neck and left shoulder started today while at rest. In the ED, she was found to be hypertensive with blood pressure of 215/180. EKG showed sinus rhythm with T wave inversion in lateral leads. High sensitive troponin X 3 were negative. She was given aspirin, nitroglycerin resulting in pain relief. She was then admitted to PCU for further evaluation and monitoring. Cardiology was consulted; she underwent dobutamine stress echo on 07/22 which was normal. Cardiology recommended addition of 2.5 mg amlodipine, metoprolol XL 12.5 mg, Imdur and change simvastatin to rosuvastatin. Patient did not have any episode of chest pain during the hospitalization. She was discharged home with instruction to follow-up with her primary care doctor. Total Time Total Time Spent Total Time Spent (In Minutes): 40 Total Time Includes: Examination of the Patient, Discharge Planning, Medication Reconciliation, Communication With Other Providers and Other Discharge Plan Discharge Items Patient Disposition: Home - Self-Care Reason For Visit: CP Discharge Diagnosis: Chest pain, ACS ruled out. Activity: Resume your previous activity Non-emergency contact: Primary Care Provider Call non-emergency contact if: you have any medication questions and your symptoms worsen Follow-up/Referrals: Milton Balderas MD [Primary Care Provider] - 07/28/22 10:40 am (Date & Time 07/28/2022 10:40 AM Provider Milton Balderas MD Department Family Practice [facility] ) Diet: Regular Addtl Attending Provider Instructions: You were admitted to the hospital with high blood pressure and chest pain. You were evaluated by guard sergeant and underwent stress test which was normal. You were also found to have high blood pressure. Cardiology recommends following medication changes: 1) Continue to take losartan 25 mg once daily 2) Amlodipine 2.5 mg is added to be taken once daily 3) Metoprolol 25 mg half tablet(12.5mg) to be taken once daily 4) Isosorbide mononitrate 30 mg once daily 5) Stop taking simvastatin. You were switched over to rosuvastatin 5 mg once daily. Stop taking Pepcid. You are prescribed Protonix 40 mg to be taken once daily. An appointment is set up with your primary care doctor on July 28, 2022. Please measure your blood pressure daily at home at sitting position with both feet on the ground in the morning and keep a record of it to show your primary care doctor. Pending Studies at Discharge: No Stand-Alone Forms: [facility], Sm[facility] Cessation Medications and DC Order Prescriptions: New isosorbide mononitrate 30 mg Tablet Extended Release 24 Hr 30 mg PO QAM Qty: 30 0RF amlodipine [Norvasc] 5 mg Tablet 2.5 mg PO QPM Qty: 30 0RF metoprolol succinate 25 mg Tablet Extended Release 24 Hr 12.5 mg PO QAM Qty: 30 0RF rosuvastatin 5 mg Tablet 5 mg PO HS Qty: 30 0RF pantoprazole [Protonix] [address] for susp in packet 40 mg PO DAILY Qty: 30 0RF Continued levothyroxine 75 mcg tablet 75 mcg PO QAM aspirin 81 mg Tablet,Delayed Release (Dr/Ec) 81 mg PO HS oxybutynin chloride 5 mg tablet extended release 24hr 5 mg PO HS Procrit 10,000 unit/mL solution 10,000 unit subcut MONTHLY PRN (Reason: WHEN NEEDED) Trulicity 0.75 mg/0.5 mL pen injector 0.75 mg SUBCUT WK Rx Instructions: ADMINISTER EVERY MONDAY losartan 25 mg tablet 25 mg PO DAILY Rx Instructions: takes at lunch time Veltassa 8.4 gram powder in packet 8.4 g PO Q OTHER DAY nitroglycerin [Nitrostat] 0.6 mg Tablet, Sublingual 0.6 mg sublingual .EVERY 5 MINUTES PRN (Reason: Chest Pain) albuterol sulfate 90 mcg/actuation HFA aerosol inhaler 2 puff INHALATION Q4 PRN (Reason: cogestion,cough,wheeze) biotin 1 mg Capsule 1 mg PO DAILY Discontinued simvastatin 40 mg tablet 40 mg PO HS famotidine 20 mg tablet 20 mg PO AMHS Discharge Orders: Discharge Order (Routine); Ordered 07/22/22 Ordered By: Edil Ambriz/Other Patient Handouts: Managing Type 2 Diabetes Admission Data Admit Date/Time: 07/21/22 14:38 Attending Provider: Edil Angel Admit Provider: Destin Olivarez Primary Care Provider: Milton Balderas Other Providers: Destin Olivarez ; Ronald Davenport Other Interventions: Discharge Summary Assessment (RN) Last Done: 07/22/22 11:52
--- NOTE | 2022-07-22 23:41 | Electrocardiogram Report ---
Test Reason : Blood Pressure : / mmHG Vent. Rate : 064 BPM Atrial Rate : 064 BPM P-R Int : 148 ms QRS Dur : 092 ms QT Int : 390 ms P-R-T Axes : 033 026 104 degrees QTc Int : 402 ms Poor data quality, interpretation may be adversely affected Normal sinus rhythm Nonspecific ST and T wave abnormality Abnormal ECG When compared with ECG of 26-MAY-2022 16:10, Premature atrial complexes are no longer Present Confirmed by Manoj Farah ([id number]) on 07/22/2022 11:41:38 PM Referred By: Confirmed By:Manoj Farah
--- NOTE | 2022-07-22 23:44 | Electrocardiogram Report ---
Test Reason : Blood Pressure : / mmHG Vent. Rate : 057 BPM Atrial Rate : 057 BPM P-R Int : 142 ms QRS Dur : 090 ms QT Int : 416 ms P-R-T Axes : 027 018 116 degrees QTc Int : 404 ms Poor data quality, interpretation may be adversely affected Sinus bradycardia Abnormal ECG When compared with ECG of 20-JUL-2022 14:20, Inverted T waves have replaced nonspecific T wave abnormality in Lateral leads Confirmed by Manoj Farah ([id number]) on 07/22/2022 11:44:28 PM Referred By: Confirmed By:Manoj Farah
--- NOTE | 2022-07-23 00:18 | Electrocardiogram Report ---
Test Reason : Blood Pressure : / mmHG Vent. Rate : 065 BPM Atrial Rate : 065 BPM P-R Int : 142 ms QRS Dur : 084 ms QT Int : 422 ms P-R-T Axes : 034 025 083 degrees QTc Int : 438 ms Normal sinus rhythm T wave abnormality, consider anterior ischemia Abnormal ECG When compared with ECG of 20-JUL-2022 14:35, T wave inversion less evident in Lateral leads Confirmed by Manoj Farah ([id number]) on 07/23/2022 12:18:19 AM Referred By: REFERRED SELF Confirmed By:Manoj Farah
[2022-07-23] MEDS ORDERED: LOSARTAN POTASSIUM 25 MG TAB PO SCH (09:00)
--- NOTE | 2022-07-24 08:04 | Communication Note ---
Date of Service: July 22, 2022 86-year-old female was admitted with chest pain and subsequently ruled out for any ACS and underwent dobutamine stress echo by the inspector agricultural commodities which was un remarkable and the patient was sent home by the attending physician in a stable medical condition. By CMS guidelines, a determination that the admission or continued stay is not medically necessary has been made by a member of the UR committee and a physician for this hospital stay, therefore a Code 44 will be completed and the Inpatient admission will be changed to outpatient. Dr Trinidad Ochoa Member UR Committee
== END 2022-07-22 13:20 | disposition home or self-care (01) | DRG 305 ==
LOC: 4W 14:12 → ED 14:12 → SUATTDRO 16:02 → 4W 16:33
DX: E53.8 Deficiency of other specified B group vitamins; R07.9 Chest pain, unspecified; E03.9 Hypothyroidism, unspecified; E78.5 Hyperlipidemia, unspecified; D63.1 Anemia in chronic kidney disease; Z87.891 Personal history of nicotine dependence; Z20.822 Contact with and (suspected) exposure to COVID-19; Z88.1 Allergy status to other antibiotic agents; N18.30 Chronic kidney disease, stage 3 unspecified; G47.33 Obstructive sleep apnea (adult) (pediatric); I16.0 Hypertensive urgency; Z79.82 Long term (current) use of aspirin; I12.9 Hypertensive chronic kidney disease with stage 1 through stage 4 chronic kidney disease, or unspecified chronic kidney disease; Z79.85 Long-term (current) use of injectable non-insulin antidiabetic drugs; Z88.8 Allergy status to other drugs, medicaments and biological substances; E11.22 Type 2 diabetes mellitus with diabetic chronic kidney disease; Z79.899 Other long term (current) drug therapy; I47.1 Supraventricular tachycardia; Z79.890 Hormone replacement therapy; I49.1 Atrial premature depolarization; R00.1 Bradycardia, unspecified

== ENCOUNTER 2023-08-13 16:56 | Observation (INO) ==
--- OUTSIDE RECORDS SUMMARY | 2023-08-13 17:01 | External Medical Summary | Summary of Care ---
Author Name Unknown Organization [facility] Address [address] [place] [address] Phone [phone] Care Team Providers Care Graphic Manager Name Role Phone Milton Balderas MD Primary Care Provider + Reason for Visit * Reason Onset Date Comments Anemia Follow-Up 06/20/2023 Encounter Details Date Type Department Care Team (Late st Contact Info) Description 06/20/2023 9:30 AM [facility], [place] [address] [place] [address] Clinic, Anemia [address] [place], [place] [id number] Anemia of chronic renal failure, stage 4 (severe) ([facility])* Allergies Active Allergy Reactions Criticality Noted Date Comments Neville Inhibitors Cough 09/29/2010 Lisinopril causes cough Ciprofloxacin Rash Medium 05/03/2014 Rash with first IV dose in hospital Metformin Diarrhea 09/29/2010 documented as of this encounter (statuses as of 06/21/2023) Medications Medication Sig Dispensed Refills Start Date End Date Status ASPIRIN 81 MG PO TABSIndications:ta kes at night Take by mouth daily. Indications: takes at night 0 06/08/2006 Active BD PEN NEEDLE SHORT U/F 31G X 8 MM USE WITH INSULIN UP TO 4 TIMES DAILY FOR DIABETES 1 Box Dosing Unit 11 01/06/2017 Active nitroglycerin (NITROSTAT) 0.[address] 1 Tablet under the tongue every 5 minutes as needed. 0 Active Probiotic Product (PROBIOTIC DAILY) Capsule Take 1 Cap by mouth daily. 0 09/17/2019 Active Biotin 1 MG Capsule Take 1 Capsule by mouth in the morning and 1 Capsule at noon and 1 Capsule before bedtime. 0 Active Metamucil 0.36 GM Oral Capsule (Psyllium) Take by mouth every other day . 0 Active FreeStyle Lancets USE TO TEST BLOOD SUGAR 2 TIMES A DAY Dx: E11.9 200 Each 3 06/14/2022 Active Oxybutynin Chloride ER 5 MG Oral Tablet Extended Release 24 Hour (Ditropan XL)Indications:Uri nary frequency TAKE 1 TABLET DAILY (DO NOT CUT, CRUSH OR CHEW) 90 Tablet 3 06/20/2022 Active Nystatin 561968 UNIT/GM External Powder (Nystop)Indication s:Tinea corporis Apply topically to affected area 3 times a day. Apply to under breasts and belly 60 g 1 07/13/2022 Active Losartan Potassium 25 MG Oral Tablet (Cozaar) TAKE 1 TABLET DAILY AT LUNCH 90 Tablet 3 10/04/2022 Active Boost Oral Liquid Take by mouth daily. 0 Active Vitamin D3 25 MCG (1000 UT) Oral Tablet (Vitamin D3)Indications:Vit cordova D deficiency Take 1 Tablet by mouth in the morning. 0 12/22/2022 Active Veltassa 8.4 GM Oral Packet (Patiromer Sorbitex Calcium)Indication s:End stage renal disease (HCC) take 1 packet every other day 30 Each 3 12/26/2022 Active CPAP every night at bedtime. 0 Active Levothyroxine Sodium 75 MCG Oral Tablet (Levoxyl) TAKE 1 TABLET DAILY FIRST THING IN THE MORNING 90 Tablet 3 02/14/2023 Active Procrit 15852 UNIT/ML Injection SolutionIndication s:Anemia of chronic renal failure, unspecified stage Inject 10,000 units subcutaneous every 4 weeks, 84-day supply. 3 mL 3 02/23/2023 Active BD TB Syringe 27G X 1/2" 1 ML (Tuberculin Syringe) Use to inject Procrit monthly or as directed 3 Each 1 02/23/2023 Active Fluticasone Propionate 50 MCG/ACT Nasal Suspension (Flonase) Administer 2 Sprays into each nostril in the morning. 16 g 1 04/10/2023 Active Ferrous Sulfate 325 (65 Fe) MG Oral Tablet (Feosol) Take 1 Tablet by mouth daily. 90 Tablet 1 04/27/2023 Active Trulicity 0.75 MG/0.5ML Subcutaneous Solution Pen-injector (Dulaglutide)Indic ations:Type 2 diabetes mellitus with stage 4 chronic kidney disease, without long-term current use of insulin (HCC) INJECT 1 PEN WEEKLY 6 mL 1 05/02/2023 Active Trident UniversityTouch Verio In Vitro Strip (Glucose Blood) Use to test blood sugar 2 times a day. DX E11.9 200 Strip 1 06/09/2023 Active Trident UniversityTouch Delica Lancets 30G USE TO CHECK GLUCOSE UP TO 4 TIMES DAILY 400 Each 3 06/09/2023 Active documented as of this encounter (statuses as of 06/21/2023) Active Problems Problem Noted Date Diagnosed Date Mild dementia without behavi oral disturbance, psychotic disturbance, mood disturbance, or anxiety 05/25/2023 PSVT (paroxysmal supraventricular tachycardia) 0 07/15/2022 Well adult exam 07/28/2021 Overview: 02/27 colon-poor prep, f/u not rec given age Stage 3b chronic kidney disease 06/01/2021 History of 2019 novel coronavirus disease (COVID -19) 05/24/2021 Overview: 05/29 vaccinated. 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 01/21/2021 Overview: 11/27/2019 Retinal Scan Interpretation: There is mild retinopathy in left eye Kyphosis (acquired) (postural) 11/25/2020 Benign hypertension with chronic kidney disease, stage IV 08/19/2019 Overview: Per CKD protocol Anemia of chronic renal failure, stage 4 (severe ) 08/19/2019 Overview: Per CKD protocol Type 2 diabetes mellitus wit h hemoglobin A1c goal of less than 8.0% 09/29/2017 Type 2 diabetes mellitus wit h diabetic chronic kidney disease 06/09/2017 B12 deficiency 08/03/2016 Diaphragmatic hernia 11/10/2010 Overview: Found on barium swallow, 01/25/2010 at [facility] on CPAP 11/10/2010 Overview: Sleep study on 12/24/2009, [facility], Cpap 8, flex setting 3 AHP ICD-10 update of inactive term History of basal cell cancer 11/10/2010 Overview: BCC, left neck, 12/24/2009 ICD-10 update of inactive term HTN, goal below 130/80 09/29/2010 Dyslipidemia, goal LDL below 100 09/29/2010 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 Pernicious anemia Hypothyroidism GERD (gastroesophageal reflux disease) documented as of this encounter (statuses as of 06/21/2023) Resolved Problems Problem Noted Date Diagnosed Date Resolved Date Type 2 diabetes mellitus wit h stage 4 chronic kidney disease, without long-term current use of insulin 06/01/2021 05/08/2023 Anemia of chronic renal fail ure, stage 3 (moderate) 02/20/2018 08/22/2019 Overview: Per CKD protocol Anemia of chronic renal fail ure, stage 4 (severe) 06/09/2017 09/29/2017 Benign hypertension with CKD (chronic kidney disease) stage III 08/29/2016 08/22/2019 Overview: Per CKD protocol Primary osteoarthritis of both knees 06/22/2016 07/10/2018 Anemia of chronic renal fail ure, stage 3 (moderate) 07/08/2015 02/20/2018 Hypothyroidism 02/12/2015 02/12/2015 Influenza-like illness 06/17/201405/18 Fatigue 05/02/2014 02/02/2017 Diverticulitis of colon 05/02/201401/07 Diarrhea 05/02/2014 02/02/2017 Anemia of chronic renal failure 02/25/2014 07/08/2015 Type 2 diabetes mellitus wit h hemoglobin A1c goal of less than 7.0% 06/04/2012 09/29/2017 Overview: ICD-10 update of inactive term HTN, goal below 140/80 12/14/201103/07 Paraproteinemia 04/19/2011 02/02/2017 Other vitamin B12 deficiency anemia 04/19/2011 02/20/2018 Anemia in ESRD (end-stage renal disease) 11/03/2010 02/02/2017 ANEMIA IN OTHER CHRONIC ILLNESS 09/29/2010 07/08/2015 Myelodysplastic syndrome, unspecified 09/29/2010 11/03/2010 Kidney disease, chronic, sta ge III (GFR 30-59 ml/min) 09/29/2010 02/20/2019 HTN, goal to be determined 0 09/29/2010 Mixed dyslipidemia 1 documented as of this encounter (statuses as of 06/21/2023) Immunizations Name Administration Dates Next Due COVID-19 mRNA, LNP-s, No Pre serve, 2-Dose Series (Pfizer) 03/15/2021,07/15/2020,06/17/2020 Pneumococcal Conjugate Vacc, 13 Valent (Prevnar) 08/13/2014 Pneumococcal Polysaccharide PPV23 (Pneumovax) 09/29/2010 Seasonal Influenza, PF, 6 M & above, IM , (FluLaval or Fluzone) 01/06/2020,01/30/2018,02/02/2017 Seasonal Influenza, Quadriva lent Hd (Fluzone Hd) 01/17/2023,03/24/2022,01/26/2021 Seasonal Influenza, Quadriva lent Hd, 65+ Yrs 01/06/2020 Seasonal Influenza, Quadriva lent, No Preserve, IM 03/03/2016,02/12/2015 03/03/2017 Seasonal Influenza, Split, I IV3, With Preserve, Inj 02/10/2014,02/05/2013,01/25/2012,01/06,03/15/2010 Seasonal Influenza, Trivalen t, Adjuvanted, 65+ yrs 01/18/2019 TDAP (age 10 and older)(Boostrix) 10/14/2018,12/2014 Varicella Zoster Vaccine (Adult) 02/05/2013 Zoster Vaccine Recombinant (Shingrix) ,03/12/2020,01/06/2020,12/08 documented as of this encounter Social History Tobacco Use Types Packs/Day Years Used Date Smoking Tobacco: Former Cigarettes Q uit: 05/08/1979 Passive Smoke Exposure: Past Smokeless Tobacco: Never Comments:quit Alcohol Use Standard Drinks/Week Comments No 0 (1 standard drink = 0.6 oz pur e alcohol) PHQ-2 Answer Date Recorded PHQ Adult Total Score 0 05/25/2023 Hunger Vital Sign Answer Date Recorded Within the past 12 months, y ou worried that your food would run out before you got the money to buy more. Never true 05/25/19 Within the past 12 months, t he food you bought just didn't last and you didn't have money to get more. Never true 05/25/2023 Sex and Gender Information Value Date Recorded Sex Assigned at Female 05/25/2023 9:53 AM EST Gender Identity Female 05/25/2023 9:53 AM EST Sexual Orientation Straight 08/28/2020 10 :56 AM EDT Job Start Date Occupation Industry Not on file Not on file Not on file documented as of this encounter Progress Notes * Capo Treviño, [facility] - 06/20/2023 4:46 PM EST Patient Phone Numbers Called and spoke with Ekta to review labs from 06/19/23. Hgb is within target range. Iron studies adequate. B12/FA levels within target range. Patient reports she gets tired easily, but otherwise denies signs/symptoms of anemia. Plan: Continue Procrit 10,000 units SQ [id number]. Last dose: Procrit 10,000 units SQ on 05/16/23 Next dose: Procrit 10,000 units SQ on ~06/27/23 New or recurrent malignancy? none reported Follow-up [facility] scheduled for 08/01/23 at [place]. Capo Treviño, PharmD, [facility] Clinical Pharmacist Anemia Clinic P: [phone] F: [phone] 06/20/2023 4:53 PM Lab Results Component Value Date/Time HGB - [facility] 10.9 (L) 06/19/2023 04:23 PM HGB - [facility] 10.9 (L) 05/09/2023 12:14 PM HGB - [facility] 11.4 (L) 04/27/2023 11:13 AM HGB - [facility] 10.2 (L) 05/18/2020 11:02 AM HGB - [facility] 9.8 (L) 04/13/2020 10:53 AM HGB - [facility] 10.5 (L) 03/16/2020 10:39 AM Lab Results Component Value Date/Time HEMOGLOBIN-OUTSIDE LAB 10.6 (A) 03/20/2022 12:00 AM HEMOGLOBIN-OUTSIDE LAB 10.8 (A) 06/11/2018 12:00 AM HEMOGLOBIN-OUTSIDE LAB 9.9 (A) 04/12/2017 12:00 AM Results for orders placed or performed in visit on 06/19/23 IRON SCREEN, INCLUDING TIBC Result Value Ref Range Iron 44 33 - 151 ug/dL Iron Binding Capacity 311 250 - 425 ug/dL Transferrin Saturation Percent 14 (L) 15 - 55 % Results for orders placed or performed in visit on 04/27/23 IRON SCREEN, INCLUDING TIBC Result Value Ref Range Iron 220 (H) 33 - 151 ug/dL Iron Binding Capacity 325 250 - 425 ug/dL Transferrin Saturation Percent 68 (H) 15 - 55 % Results for orders placed or performed in visit on 03/23/23 IRON SCREEN, INCLUDING TIBC Result Value Ref Range Iron 171 (H) 33 - 151 ug/dL Iron Binding Capacity 347 250 - 425 ug/dL Transferrin Saturation Percent 49 15 - 55 % No results found for: "TRANSFERRIN SAT %-OUTSIDE LAB" Lab Results Component Value Date/Time FERRITIN - [facility] 438 (H) 06/19/2023 04:23 PM FERRITIN - [facility] 520 (H) 04/27/2023 11:13 AM FERRITIN - [facility] 384 (H) 03/23/2023 02:26 PM FERRITIN - [facility] 697.3 (H) 05/18/2020 11:02 AM FERRITIN - [facility] 784.3 (H) 04/13/2020 10:53 AM FERRITIN - [facility] 729.7 (H) 02/17/2020 10:24 AM No results found for: "FERRITIN-OUTSIDE LAB" documented in this encounter Plan of Treatment Upcoming Encounters Date Type Department Care Team (Late st Contact Info) Description 08/01/2023 10:00 AM EDT Laboratory Laboratory, [place] [address] [place] [facility] [place] [phone] [place] [address] [place] [address] 08/02/2023 9:30 AM EDT Pharmacy Pharmacy, [place] [address] [place] [address] Clinic, Anemia [address] [place] [address] 08/31/2023 8:30 AM EDT Office Visit Nephrology, Alisia Soriano [address] [facility] [place] [address] ZemaitisKamini PA-C [address] [place] [address] 12/28/2023 10:00 AM EDT Office Visit Family Practice [facility] [address] [facility] [place] [address] [facility]as [facility] [address] 01/30/2024 8:30 AM EDT Office Visit Sleep Disorders Ctr [facility] [address] [facility] [place] [phone] Lucila Flanagan [facility] [address] Scheduled Orders Name Type Priority Associated Diagnoses Orde r Schedule CBC WITH WBC DIFFERENTIAL AND ANEMIA REFLEX WORKUP Lab Routine Anemia of chronic renal failure, stage 4 (severe) (HCC) Expected: 08/01/2023, Expires: 07/19/2024 Health Maintenance Due Date Last Done Comments Hepatitis B (1 of 3 - Risk 3-dose series) 1997 Diabetic Eye Exam 12/23/2021 12/23/2020, , 12/19/2019, Additional history exists COVID-19 Vaccine ( season) 2023 03/15/2021, 07/15/2020, 06/17/2020 HbA1c 10/27/2023 04/27/2023, 07/07, 03/18/2022, Additional history exists Albumin/Creatinine Ratio 04/28/2024 023, 03/23/2023, 11/29/2022, Additional history exists Depression Screening 05/25/2024 05/25/2023 Diabetic Foot Exam 05/25/2024 05/25/2023, 0 08/18/2021, 08/27/2020, Additional history exists TSH 06/19/2024 06/19/2023, 04/08, 03/23/2023, Additional history exists DTaP,Tdap,and Td Vaccines (3 - Td or Tdap) 10/14/2028 10/14/2018, 08/13/2014 Pneumococcal Vaccine: 65+ Years Completed 08/13/2014, 09/29/2010 Zoster Vaccines Completed 03/12/2020, 09/2019, 01/06/2020, Additional history exists Influenza Vaccine (FLU shot) Completed 04/2023, 03/24/2022, 01/26/2021, Additional history exists GARDASIL-HPV IMMUNIZATION SERIES Aged Out No longer eligible based on patient's age to complete this topic MENINGOCOCCAL (MENACTRA/MENVEO) Aged Out No longer eligible based on patient's age to complete this topic documented as of this encounter Medical Devices Not on filedocumented as of this encounter Visit Diagnoses Diagnosis Anemia of chronic renal failure, stage 4 (severe) (HCC)- Primary documented in this encounter Care Teams Graphic Manager Relationship Specialty Start Date End Date Milton Balderas MD [address] [place] [address] PCP - General Family Medicine 10/13/20 documented as of this encounter
--- OUTSIDE RECORDS SUMMARY | 2023-08-13 17:01 | External Medical Summary ---
Author Name Unknown Address Unknown Organization [id number]:[facility] [place] [address] [facility] [place] [address] Laboratory Report Ordering Provider Test Date Status STU LANDERS 07/26/2023 14:26:58 Final Observation Date Value Abnormality Reference (Units ) Status SYNC LEUKOCYTES IN BLOOD BY AUTOMATED COUNT 07/26/2023 14:26:58 7.75 4.00-10.80 (K/uL) Final Segs 07/26/2023 14:26:58 58.5 40.0-75.0 (%) Final Lymphs % 07/26/2023 14:26:58 29.2 18.0-42.0 (%) Final Monos 07/26/2023 14:26:58 8.5 1.0-11.0 (%) Final Eosinophils 07/26/2023 14:26:58 2.6 0.0-6.0 (%) Final Basos 07/26/2023 14:26:58 0.9 0.0-2.0 (%) Final Immature Granulocyte, Percent 07/26/2023 14:26:58 0.3 0.0-2.0 (%) Final Absolute Segs 07/26/2023 14:26:58 4.54 1.80-7.70 (K/uL) Final Lymphs, absolute 07/26/2023 14:26:58 2.26 1.00-4.80 (K/ul) Final Monos, Abs 07/26/2023 14:26:58 0.66 0.00-1.10 (K/uL) Final Eos, Abs 07/26/2023 14:26:58 0.20 0.00-0.70 (K/uL) Final Basos, Abs 07/26/2023 14:26:58 0.07 0.00-0.20 (K/uL) Final Immature Granulocytes, Number 07/26/2023 14:26:58 0.02 0.00-0.20 (K/uL) Final Performing Location [facility] [place] [facility] [address] [facility] [address]
--- OUTSIDE RECORDS SUMMARY | 2023-08-13 17:01 | External Medical Summary | Summary of Care ---
Author Name Unknown Organization [facility] Address [address] [place] [address] Phone [phone] Care Team Providers Care Wire Stripping Machine Operator Name Role Phone Milton Balderas MD Primary Care Provider + Encounter Details Date Type Department Care Team (Late st Contact Info) Description 06/22/2023 Telephone Family Practice [facility] [address] [place] [address] Milton Balderas MD [address] [place] [address] Allergies Active Allergy Reactions Criticality Noted Date Comments Neville Inhibitors Cough 09/29/2010 Lisinopril causes cough Ciprofloxacin Rash Medium 05/03/2014 Rash with first IV dose in hospital Metformin Diarrhea 09/29/2010 documented as of this encounter (statuses as of 06/26/2023) Medications Medication Sig Dispensed Refills Start Date [...] CHEW) 90 Tablet 3 06/20/2022 Active Nystatin 324831 UNIT/GM External Powder (Nystop)Indication s:Tinea corporis Apply [...] MORNING 90 Tablet 3 02/14/2023 Active Procrit 35545 UNIT/ML Injection SolutionIndication s:Anemia of chronic renal [...] PEN WEEKLY 6 mL 1 05/02/2023 Active OneTouch Verio In Vitro Strip (Glucose Blood) Use to test blood sugar 2 times a day. DX E11.9 200 Strip 1 06/09/2023 Active OneTouch Delica Lancets 30G USE TO CHECK GLUCOSE UP TO 4 TIMES DAILY 400 Each 3 06/09/2023 Active documented as of this encounter (statuses as of 06/26/2023) Active Problems Problem Noted Date Diagnosed Date [...] Overview: Found on barium swallow, 01/25/2010 at [facility] on CPAP 11/10/2010 Overview: Sleep study on 12/24/2009, [facility], Cpap 8, flex setting 3 AHP ICD-10 update of inactive term History of basal cell cancer 11/10/2010 Overview: BCC, left neck, 12/24/2009 ICD-10 update of inactive term HTN, goal below 130/80 09/29/2010 Dyslipidemia, goal LDL below 100 09/29/2010 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 Pernicious anemia Hypothyroidism GERD (gastroesophageal reflux disease) documented as of this encounter (statuses as of 06/26/2023) Resolved Problems Problem Noted Date Diagnosed Date [...] as of this encounter (statuses as of 06/26/2023) Immunizations Name Administration Dates Next Due COVID-19 [...] money to buy more. Never true 05/25/19 24 Within the past 12 months, t he [...] on file documented as of this encounter Miscellaneous Notes * Telephone Encounter - Mari Reeder LPN - 06/26/2023 10:56 AM EST S/w . Aware of results. * Telephone Encounter - Milton Balderas MD - 06/22/2023 1:30 PM EST Call / patient (patient has dementia) Urine labs looked ok--no sign UTI. F/u as needed. documented in this encounter Plan of Treatment Upcoming Encounters Date Type Department Care Team (Late st Contact Info) Description 08/01/2023 10:00 AM EDT Laboratory Laboratory, [place] [address] [place] [address] [facility] [address] [place] [address] 08/02/2023 9:30 AM EDT Pharmacy Pharmacy, [address] [address] Clinic, [place] [address] [place] [address] 08/31/2023 8:30 AM EDT Office Visit [place]rology, [facility] [place] [address] [place] [address] Kamini Hyde PA-C [address] [place] [address] 12/28/2023 10:00 AM EDT Office Visit Family Practice [facility] [address] [place] [address] Milton Balderas MD [address] [place] [address] 01/30/2024 8:30 AM EDT Office Visit Sleep Disorders Ctr [facility] [address] [place] [phone] Lucila Flanagan CRNP [address] [place] [address] Health Maintenance Due Date Last Done Comments Diabetic Eye Exam 12/23/2021 12/23/2020, , 12/19/2019, [...] on patient's age to complete this topic Hepatitis B Aged Out No longer eligi ble based on patient's age to complete this topic MENINGOCOCCAL (MENACTRA/MENVEO) Aged Out No longer eligible based on patient's age to complete this topic documented as of this encounter Medical Devices Not on filedocumented as of this encounter Care Teams Wire Stripping Machine Operator Relationship Specialty Start Date End Date Milton Balderas MD [address] [place] [address] PCP - General Family Medicine 10/13/20 documented as of this encounter
--- OUTSIDE RECORDS SUMMARY | 2023-08-13 17:01 | External Medical Summary ---
Author Name Unknown Address Unknown Organization [id number]:[facility] [place] - [facility] [address] [place] [address] Laboratory Report Ordering Provider Test Date Status JORGEMICHEL 07/26/2023 14:35:05 Final Normal: <30 mg/g creatinine< br/>High: 30-300 mg/g creatinine
Very High: >300 mg/g creatinine
Nephrotic: >2200 mg/g creatinine Observation Date Value Abnormality Reference (Units ) Status Albumin, Urine 07/26/2023 14:35:05 79.19 (mg/dL) Final Creatinine, Urine 07/26/2023 14:35:05 93 (mg/dL) Final Albumin/Creatinine [Mass Ratio] in Urine 07/26/2023 14:35:05 852 Above high normal <30 (mg/g Creat) Final Performing Location [facility] [place] - [address] [place] [address]
--- OUTSIDE RECORDS SUMMARY | 2023-08-13 17:01 | External Medical Summary | Summary of Care ---
Author Name Unknown Organization [facility] Address [address] [place] [address] Phone [phone] Care Team Providers Care Potato Spotter Name Role Phone Milton Balderas MD Primary Care Provider + Reason for Visit * Reason Onset Date Comments Anemia Follow-Up 07/31/2023 Encounter Details Date Type Department Care Team (Late st Contact Info) Description 07/31/2023 9:30 AM EDT Pharmacy Pharmacy, [place] [address] [place] [address] Clinic, Anemia [address] [place] [address] Anemia of chronic renal failure, stage 4 (severe) ([facility])* Allergies Active Allergy Reactions Criticality Noted Date Comments Neville Inhibitors Cough 09/29/2010 Lisinopril causes cough Ciprofloxacin Rash Medium 05/03/2014 Rash with first IV dose in hospital Metformin Diarrhea 09/29/2010 documented as of this encounter (statuses as of 07/31/2023) Medications Medication Sig Dispensed Refills Start Date [...] CHEW) 90 Tablet 3 06/20/2022 Active Nystatin 086249 UNIT/GM External Powder (Nystop)Indication s:Tinea corporis Apply [...] MORNING 90 Tablet 3 02/14/2023 Active Procrit 67444 UNIT/ML Injection SolutionIndication s:Anemia of chronic renal failure, unspecified stage Inject 10,000 units subcutaneous every 4 weeks, 84-day supply. 3 mL 3 02/23/2023 Active BD TB Syringe 27G X 1/2" 1 ML (Tuberculin Syringe) Use to inject Procrit monthly or as directed 3 Each 1 02/23/2023 Active Ferrous Sulfate 325 (65 Fe) MG Oral Tablet (Feosol) Take 1 Tablet by mouth daily. 90 Tablet 1 04/27/2023 Active Trulicity 0.75 MG/0.5ML Subcutaneous Solution Pen-injector (Dulaglutide)Indic ations:Type 2 diabetes mellitus with stage 4 chronic kidney disease, without long-term current use of insulin (HCC) INJECT 1 PEN WEEKLY 6 mL 1 05/02/2023 Active UpshotTouch Verio In Vitro Strip (Glucose Blood) Use to test blood sugar 2 times a day. DX E11.9 200 Strip 1 06/09/2023 Active UpshotTouch Delica Lancets 30G USE TO CHECK GLUCOSE UP TO 4 TIMES DAILY 400 Each 3 06/09/2023 Active Fluticasone Propionate 50 MCG/ACT Nasal Suspension (Flonase) Administer 2 Sprays into each nostril in the morning. 16 g 1 07/07/2023 Active documented as of this encounter (statuses as of 07/31/2023) Active Problems Problem Noted Date Diagnosed Date [...] Overview: Found on barium swallow, 01/25/2010 at [facility] on CPAP 11/10/2010 Overview: Sleep study on 12/24/2009, [facility], Cpap 8, flex setting 3 AHP ICD-10 update of inactive term History of basal cell cancer 11/10/2010 Overview: BCC, left neck, 12/24/2009 ICD-10 update of inactive term HTN, goal below 130/80 09/29/2010 Dyslipidemia, goal LDL below 100 09/29/2010 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 Pernicious anemia Hypothyroidism GERD (gastroesophageal reflux disease) documented as of this encounter (statuses as of 07/31/2023) Resolved Problems Problem Noted Date Diagnosed Date [...] as of this encounter (statuses as of 07/31/2023) Immunizations Name Administration Dates Next Due COVID-19 [...] this encounter Progress Notes * Capo Treviño, [facility] - 07/31/2023 9:53 AM EDT Patient Phone Numbers Called and spoke with Ekta to review labs from 07/26/23. Hgb is above target range. Iron studies adequate. B12/FA levels within target range. Patient reports she gets tired easily, but otherwise denies signs/symptoms of anemia. Plan: HOLD Procrit 10,000 units SQ [id number]. Last dose: Procrit 10,000 units SQ on 06/27/23 Next dose: Procrit 10,000 units SQ on ~09/19/23 New or recurrent malignancy? none reported Follow-up [facility] scheduled for 09/12/23 at [place]. Capo Treviño, PharmD, [facility] Clinical Pharmacist Anemia Clinic P: [phone] F: [phone] 07/31/2023 10:19 AM Lab Results Component Value Date/Time HGB 12.5 07/26/2023 02:26 PM HGB 10.9 (L) 06/19/2023 04:23 PM HGB 10.9 (L) 05/09/2023 12:14 PM HGB 10.6 (A) 03/20/2022 12:00 AM HGB 10.2 (L) 05/18/2020 11:02 AM HGB 9.8 (L) 04/13/2020 10:53 AM HGB 10.5 (L) 03/16/2020 10:39 AM No components found for: "HEMOGLOBIN-OUTSIDE LAB" Results for orders placed or performed in [...] Care Team (Late st Contact Info) Description 08/31/2023 8:30 AM EDT Office Visit Nephrology, [facility] [address] [place] [address] Kamini Hyde PA-C [address] [place] [address] 09/12/2023 11:00 AM EDT Laboratory Laboratory, [address] [place] [address] [place], Laboratory [address] [place] [address] 09/13/2023 9:30 AM EDT Pharmacy Pharmacy, [place] [address] [place] [address] Clinic, [facility] [address] [place] [address] 12/28/2023 10:00 AM EDT Office Visit Family Practice [facility] [address] [facility] [place] [address] Milton Balderas MD [address] [facility] [place] [address] 01/30/2024 8:30 AM EDT Office Visit Sleep Disorders Ctr [facility] [address] [facility] [place] [phone] Lucila Flanagan CRNP [address] [facility] [address] Scheduled Orders Name Type Priority Associated Diagnoses Orde r Schedule CBC WITH WBC DIFFERENTIAL AND ANEMIA REFLEX WORKUP Lab Routine Anemia of chronic renal failure, stage 4 (severe) (HCC) Expected: 09/12/2023 (Approximate), Expires: 08/30/2024 Health Maintenance Due Date Last Done Comments Diabetic Eye Exam 12/23/2021 12/23/2020, , 12/19/2019, Additional history exists COVID-19 Vaccine ( season) 2023 03/15/2021, 07/15/2020, 06/17/2020 HbA1c 10/27/2023 04/27/2023, 0305/2022, 03/18/2022, Additional history exists Depression Screening 05/25/2024 05/25/2023 Diabetic Foot Exam 05/25/2024 05/25/2023, 0 08/18/2021, 08/27/2020, Additional history exists TSH 06/19/2024 06/19/2023, 04/08, 03/23/2023, Additional history exists Albumin/Creatinine Ratio 07/25/2024 024, 04/28/2023, 03/23/2023, Additional history exists DTaP,Tdap,and Td Vaccines [...] Primary documented in this encounter Care Teams Potato Spotter Relationship Specialty Start Date End Date Milton Balderas MD [address] [place] [address] PCP - General Family Medicine 10/13/20 documented as of this encounter
--- OUTSIDE RECORDS SUMMARY | 2023-08-13 17:01 | External Medical Summary ---
Author Name Unknown Address Unknown Organization K01:[facility] - [address] [facility] [address] Laboratory Report Ordering Provider Test Date Status STU LANDERS 07/26/2023 14:26:58 Final Observation Date Value Abnormality Reference (Units ) Status WBC, Total 07/26/2023 14:26:58 7.75 4.00-10.8 0 (K/uL) Final RBC 07/26/2023 14:26:58 4.01 3.85-5.15 (M/uL) Final Hemoglobin 07/26/2023 14:26:58 12.5 12.0-15.3 (g/dL) Final Anemia reflex testing trigge rs on a HGB < 12.0 for Females and HGB < 13.0 for Males in accordance with the WHO Anemia Guidelines
Anemia reflex testing triggers on a HGB < 12.0 for Females and HGB < 13.0 for Males in accordance with the WHO Anemia Guidelines HCT 07/26/2023 14:26:58 37.9 36.0-45.2 (%) Final MCV 07/26/2023 14:26:58 94.5 81.5-97.5 (fL) Final MCH 07/26/2023 14:26:58 31.2 27.0-34.0 (pg) Final MCHC 07/26/2023 14:26:58 33.0 32.0-36.0 (g/dL) Final RDW 07/26/2023 14:26:58 12.3 11.5-15.5 (%) Final Platelets 07/26/2023 14:26:58 234 140-400 (K /uL) Final MPV 07/26/2023 14:26:58 11.6 6.6-11.1 ( fL) Final Nucleated erythrocytes/100 leukocytes [Ratio] in Blood by Automated count 07/26/2023 14:26:58 0 <=0 (/100 WBCs) Fi nal Performing Location [facility] - [address] [facility] [address]
--- OUTSIDE RECORDS SUMMARY | 2023-08-13 17:01 | External Medical Summary | Summary of Care ---
Author Name Unknown Organization [facility] Address [address] [place] [address] Phone [phone] Care Team Providers Care Tower Observer Name Role Phone Milton Balderas MD Primary Care Provider + Reason for Visit * Reason Comments Outpatient Testing Encounter Details Date Type Department Care Team (Late st Contact Info) Description 07/26/2023 2:30 PM EDT Laboratory Laboratory, [place] [address] [place] [address] [place], Laboratory [address] [place] [address] Anemia of chronic renal failure, stage 4 (severe) (HCC); Worsening renal function; Persistent proteinuria; Uncontrolled hypertension, stage 1 Allergies Active Allergy Reactions Criticality Noted Date Comments Neville Inhibitors Cough 09/29/2010 Lisinopril causes cough Ciprofloxacin Rash Medium 05/03/2014 Rash with first IV dose in hospital Metformin Diarrhea 09/29/2010 documented as of this encounter (statuses as of 07/26/2023) Medications Medication Sig Dispensed Refills Start Date [...] CHEW) 90 Tablet 3 06/20/2022 Active Nystatin 940813 UNIT/GM External Powder (Nystop)Indication s:Tinea corporis Apply [...] MORNING 90 Tablet 3 02/14/2023 Active Procrit 78007 UNIT/ML Injection SolutionIndication s:Anemia of chronic renal [...] PEN WEEKLY 6 mL 1 05/02/2023 Active FreeMarketsTouch Verio In Vitro Strip (Glucose Blood) Use to test blood sugar 2 times a day. DX E11.9 200 Strip 1 06/09/2023 Active FreeMarketsTouch Delica Lancets 30G USE TO CHECK GLUCOSE UP TO 4 TIMES DAILY 400 Each 3 06/09/2023 Active Fluticasone Propionate 50 MCG/ACT Nasal Suspension (Flonase) Administer 2 Sprays into each nostril in the morning. 16 g 1 07/07/2023 Active documented as of this encounter (statuses as of 07/26/2023) Active Problems Problem Noted Date Diagnosed Date [...] Overview: Found on barium swallow, 01/25/2010 at [facility] on CPAP 11/10/2010 Overview: Sleep study on 12/24/2009, [facility], Cpap 8, flex setting 3 AHP ICD-10 update of inactive term History of basal cell cancer 11/10/2010 Overview: BCC, left neck, 12/24/2009 ICD-10 update of inactive term HTN, goal below 130/80 09/29/2010 Dyslipidemia, goal LDL below 100 09/29/2010 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 Pernicious anemia Hypothyroidism GERD (gastroesophageal reflux disease) documented as of this encounter (statuses as of 07/26/2023) Resolved Problems Problem Noted Date Diagnosed Date [...] as of this encounter (statuses as of 07/26/2023) Immunizations Name Administration Dates Next Due COVID-19 [...] on file documented as of this encounter Plan of Treatment Upcoming Encounters Date Type Department Care Team (Late st Contact Info) Description 08/02/2023 9:30 AM EDT Pharmacy Pharmacy, [address] [address] Clinic, [address] [address] 08/31/2023 8:30 AM EDT Office Visit Nephrology, [facility] [address] [place] [address] ZemaitisKamini PA-C [address] [facility] [place] [address] 12/28/2023 10:00 AM EDT Office Visit Family Practice [facility] [address] [place] [address] Milton Balderas MD [address] [place] [address] 01/30/2024 8:30 AM EDT Office Visit Sleep Disorders Ctr [facility] [address] [place] [phone] Lucila Flanagan CRNP [address] [place] [address] Pending Results Name Type Priority Associated Diagnoses Date /Time CBC WITH WBC DIFFERENTIAL AND ANEMIA REFLEX WORKUP Lab Routine Anemia of chronic renal failure, stage 4 (severe) ([facility]) 07/26/2023 2:26 PM EDT ANEMIA CBC Lab Routine Anemia of chronic renal failure, stage 4 (severe) ([facility]) 07/26/2023 2:26 PM EDT DIFFERENTIAL, AUTOMATED Lab Routine Anemia of chronic renal failure, stage 4 (severe) ([facility]) 07/26/2023 2:26 PM EDT ANEMIA REFLEX CHEMISTRY HOLD Lab Routine Anemia of chronic renal failure, stage 4 (severe) ([facility]) 07/26/2023 2:26 PM EDT ALBUMIN / CREATININE RATIO, URINE Lab Routine Worsening renal function Persistent proteinuria Uncontrolled hypertension, stage 1 07/26/2023 2:35 PM EDT Health Maintenance Due Date Last Done Comments [...] chronic renal failure, stage 4 (severe) (HCC) Worsening renal function Persistent proteinuria Proteinuria Uncontrolled hypertension, stage 1 Unspecified essential hypertension documented in this encounter Care Teams Tower Observer Relationship Specialty Start Date End Date Milton Balderas MD [address] [place] [address] PCP - General Family Medicine 10/13/20 documented as of this encounter
--- OUTSIDE RECORDS SUMMARY | 2023-08-13 17:01 | External Medical Summary | Summary of Care ---
Author Name Unknown Organization [facility] Address [address] [place] [address] Phone [phone] Care Team Providers Care Acid Retort Operator Name Role Phone Milton Balderas MD Primary Care Provider + Reason for Visit * Reason Comments Acute Pt reports weakness, and fatigue. Started while they were away in [place]- last week. Encounter Details Date Type Department Care Team (Late st Contact Info) Description 06/20/2023 5:40 PM EST Office Visit [facility] Practice [facility] [place] [address] Milton Balderas MD [address] [place] [address] Malaise and fatigue* Allergies Active Allergy Reactions Criticality Noted Date Comments Neville Inhibitors Cough 09/29/2010 Lisinopril causes cough Ciprofloxacin Rash Medium 05/03/2014 Rash with first IV dose in hospital Metformin Diarrhea 09/29/2010 documented as of this encounter (statuses as of 06/20/2023) Medications Medication Sig Dispensed Refills Start Date [...] CHEW) 90 Tablet 3 06/20/2022 Active Nystatin 347684 UNIT/GM External Powder (Nystop)Indication s:Tinea corporis Apply [...] MORNING 90 Tablet 3 02/14/2023 Active Procrit 97540 UNIT/ML Injection SolutionIndication s:Anemia of chronic renal [...] PEN WEEKLY 6 mL 1 05/02/2023 Active JustinmindTouch Verio In Vitro Strip (Glucose Blood) Use to test blood sugar 2 times a day. DX E11.9 200 Strip 1 06/09/2023 Active JustinmindTouch Delica Lancets 30G USE TO CHECK GLUCOSE UP TO 4 TIMES DAILY 400 Each 3 06/09/2023 Active documented as of this encounter (statuses as of 06/20/2023) Active Problems Problem Noted Date Diagnosed Date [...] Overview: Found on barium swallow, 01/25/2010 at [facility] on CPAP 11/10/2010 Overview: Sleep study on 12/24/2009, [facility], Cpap 8, flex setting 3 AHP ICD-10 update of inactive term History of basal cell cancer 11/10/2010 Overview: BCC, left neck, 12/24/2009 ICD-10 update of inactive term HTN, goal below 130/80 09/29/2010 Dyslipidemia, goal LDL below 100 09/29/2010 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 Pernicious anemia Hypothyroidism GERD (gastroesophageal reflux disease) documented as of this encounter (statuses as of 06/20/2023) Resolved Problems Problem Noted Date Diagnosed Date [...] as of this encounter (statuses as of 06/20/2023) Immunizations Name Administration Dates Next Due COVID-19 mRNA, LNP-s, No Pre serve, 2-Dose Series (Vozeeme) 03/15/2021,07/15/2020,06/17/2020 Pneumococcal Conjugate Vacc, 13 Valent (Prevnar) [...] Passive Smoke Exposure: Past Smokeless Tobacco: Never Tobacco Cessation:Counseling Given: Not Answered Comments:quit Alcohol Use Standard Drinks/Week Comments No [...] on file documented as of this encounter Last Filed Vital Signs Vital Sign Reading Time Taken Comments Blood Pressure 122/70 06/20/2023 4:48 PM EST Pulse 55 06/20/2023 4:48 PM EST Temperature 37.1 C (98.7 F) 06/20/2023 4:48 PM ES T Respiratory Rate 18 06/20/2023 4:48 PM EST Oxygen Saturation 98% 06/20/2023 4:48 PM EST Inhaled Oxygen Concentration - - Weight 76.3 kg (168 lb 5 oz) 06/20/2023 4:48 PM EST Height - - Body Mass Index 28.01 03/14/2023 8:08 AM EST documented in this encounter Progress Notes * Milton Balderas MD - 06/20/2023 7:46 PM EST SUBJECTIVE: Ekta Francisco is a 87 year old female here for Acute (Pt reports weakness, and fatigue. Started while they were away in [place]-last week. ) . Here w/. They recently returned about 4 days ago from a 2 week trip to [place]. Her son drove them. They had nice time visiting her brother and grandson and great grandson. She has felt more tired the last few days. She did have mild cold symptoms about 2 weeks ago but those resolved. No rhinorrhea no sore throat no cough no fever chills. No shortness of breath or chestpain no dysuria. No edema. Physical: BP 122/70 | Pulse 55 | Temp 37.1 C (98.7 F) (Tympanic) | Resp 18 | Wt 76.3 kg (168 lb 5 oz) | SpO2 98% | BMI 28.01 kg/m | BSA 1.87 m General-No apparent Distress Head, Eyes, Ears, Nose, Throat--Normocephalic, atraumatic Neck-Supple Lymph-no lymphadenopathy Lungs-Clear to Auscultation bilaterally Cardiovascular--Regular rate & Rhythm, +s1, s2, no murmur Abdomen-soft, nontender, nondistended + bowel sounds Extremities--no edema Neuro-alert & oriented to self (R53.81, R53.83) Malaise and fatigue (primary encounter diagnosis) Plan: URINALYSIS, POINT OF CARE Trace urine given--no sign UTI. May be fatigued from travel or recent URI. No red flags F/u prn persists/worsens Labs reviewed from this week are stable. (This note was completed using the dictation program Fluency Direct. As such, there may be misspellings, word substitutions, or other variations that should not change the essence of the clinical content of this encounter note.If there is need for further clarification, please direct questions to the provider listed above.) Milton Balderas MD documented in this encounter Nursing Notes * Emily Leos LPN - 06/20/2023 4:48 PM EST The patient has been properly identified by confirmation of name and date of . Chief Complaint Patient presents with Acute Pt reports weakness, and fatigue. Started while they were away in [place]-last week. documented in this encounter Plan of Treatment Upcoming Encounters Date Type Department Care Team (Late st Contact Info) Description 08/31/2023 8:30 AM EDT Office Visit Nephrology, [facility] [address] [place] [address] ZeKamini hodges PA-C [address] [place] [address] 12/28/2023 10:00 AM EDT Office Visit Family Practice [facility] [address] [place] [address] Milton Balderas MD [address] [place] [address] 01/30/2024 8:30 AM EDT Office Visit Sleep Disorders Ctr [facility] [address] [place] [phone] Lucila Flanagan CRNP [address] [place] [address] Health Maintenance Due Date Last Done Comments [...] Completed 08/13/2014, 09/29/2010 Zoster Vaccines Completed 03/12/2020, 1109/2019, 01/06/2020, Additional history exists Influenza Vaccine (FLU shot) Completed 04/2023, 03/24/2022, 01/26/2021, Additional history exists GARDASIL-HPV IMMUNIZATION SERIES Aged Out No longer eligible based on patient's age to complete this topic MENINGOCOCCAL (MENACTRA/MENVEO) Aged Out No longer eligible based on patient's age to complete this topic documented as of this encounter Medical Devices Not on filedocumented as of this encounter Procedures Procedure Name Priority Date/Time Associated Diagnosis Comments URINALYSIS, POINT OF CARE Routine 06/20/2023 5:35 PM EST Malaise and fatigue documented in this encounter Results * (ABNORMAL) URINALYSIS, POINT OF CARE (06/20/2023 5:35 PM EST) Color, Urine Yellow Light Yellow, Yellow 06/20/2023 5:38 PM EST [facility] Clarity, Urine Clear Clear 06/20/2023 5:38 PM EST [facility] Glucose, Urine Negative Negative mg/dL 06/20/2023 5:38 PM EST [facility] Bilirubin, Urine Negative Negative 06/20/2023 5:38 PM EST [facility] Ketone, Urine Negative Negative mg/dL 06/20/2023 5:38 PM EST [facility] Specific [place], Urine >=1.030 1.003 - 1.030 06/20/2023 5:38 PM EST [facility] Blood, Urine Negative Negative 06/20/2023 5:38 PM EST [facility] pH, Urine 5.5 5.0, 5.5, 6.0, 6.5, 7.0, 7.5 units 06/20/2023 5:38 PM EST [facility] Protein, Urine >=300(A) Negative mg/dL 06/20/2023 5:38 PM EST [facility] Urobilinogen, Urine 0.2 0.2, 1.0 mg/dL 06/20/2023 5:38 PM EST [facility] Nitrite, Urine Negative Negative 06/20/2023 5:38 PM EST [facility] Esterase, Urine Negative Negative 06/20/2023 5:38 PM EST [facility]ORY [facility] 57[facility]10 Urine 06/20/2023 5:35 PM EST 06/20/2023 5:38 PM EST Milton Balderas MD LAB POINT OF CAR E TEST DOCKED DEVICE UNSOLICITED RESULTS [facility]10 [address] [place] [address] documented in this encounter Visit Diagnoses Diagnosis Malaise and fatigue- Primary Other malaise and fatigue documented in this encounter Care Teams Acid Retort Operator Relationship Specialty Start Date End Date Milton Balderas MD [address] [place] [address] PCP - General Family Medicine 10/13/20 documented as of this encounter
--- OUTSIDE RECORDS SUMMARY | 2023-08-13 17:01 | External Medical Summary | Summary of Care ---
Author Name Unknown Organization [facility] Address [address] [place] [address] Phone [phone] Care Team Providers Care Trawl Net Maker Name Role Phone Milton Balderas MD Primary Care Provider + Reason for Visit * Reason Comments Acute Pt reports weakness, and fatigue. Started while they were away in [place]- last week. Encounter Details Date Type Department Care Team (Late st Contact Info) Description 06/20/2023 5:40 PM EST Office [facility] [place] [address] Milton Balderas MD [address] [place] [address] Malaise and fatigue* Allergies Active Allergy Reactions Criticality Noted Date Comments Neville Inhibitors Cough 09/29/2010 Lisinopril causes cough Ciprofloxacin Rash Medium 05/03/2014 Rash with first IV dose in hospital Metformin Diarrhea 09/29/2010 documented as of this encounter (statuses as of 06/22/2023) Medications Medication Sig Dispensed Refills Start Date [...] CHEW) 90 Tablet 3 06/20/2022 Active Nystatin 656673 UNIT/GM External Powder (Nystop)Indication s:Tinea corporis Apply [...] MORNING 90 Tablet 3 02/14/2023 Active Procrit 15603 UNIT/ML Injection SolutionIndication s:Anemia of chronic renal [...] PEN WEEKLY 6 mL 1 05/02/2023 Active SlickLoginTouch Verio In Vitro Strip (Glucose Blood) Use to test blood sugar 2 times a day. DX E11.9 200 Strip 1 06/09/2023 Active SlickLoginTouch Delica Lancets 30G USE TO CHECK GLUCOSE UP TO 4 TIMES DAILY 400 Each 3 06/09/2023 Active documented as of this encounter (statuses as of 06/22/2023) Active Problems Problem Noted Date Diagnosed Date [...] Overview: Found on barium swallow, 01/25/2010 at [facility] on CPAP 11/10/2010 Overview: Sleep study on 12/24/2009, [facility], Cpap 8, flex setting 3 AHP ICD-10 update of inactive term History of basal cell cancer 11/10/2010 Overview: BCC, left neck, 12/24/2009 ICD-10 update of inactive term HTN, goal below 130/80 09/29/2010 Dyslipidemia, goal LDL below 100 09/29/2010 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 Pernicious anemia Hypothyroidism GERD (gastroesophageal reflux disease) documented as of this encounter (statuses as of 06/22/2023) Resolved Problems Problem Noted Date Diagnosed Date [...] as of this encounter (statuses as of 06/22/2023) Immunizations Name Administration Dates Next Due COVID-19 mRNA, LNP-s, No Pre serve, 2-Dose Series (Cotap) 03/15/2021,07/15/2020,06/17/2020 Pneumococcal Conjugate Vacc, 13 Valent (Prevnar) [...] fatigue. Started while they were away in [place]-last week. ) . Here w/. They recently returned about 4 days ago from a 2 week trip to [place]. Her son drove them. They had nice [...] fatigue. Started while they were away in [place]-last week. documented in this encounter Plan of Treatment Upcoming Encounters Date Type Department Care Team (Late st Contact Info) Description 08/01/2023 10:00 AM EDT [facility] [place] [address] [facility] [phone] [place], Laboratory [address] [facility] [place] [id number] 08/02/2023 9:30 AM EDT Pharmacy Pharmacy, [place] [address] [place] [address] Clinic, [facility] [address] [place] [address] 08/31/2023 8:30 AM EDT Office Visit Nephrology, [facility] [address] [place] [address] ZemaitisKamini PA-C [address] [place] [address] 12/28/2023 10:00 AM EDT Office Visit Family Practice [facility] [address] [place] [address] Milton Balderas MD [address] [place] [address] 01/30/2024 8:30 AM EDT Office Visit Sleep Disorders Ctr [facility] [address] [facility] [place] [phone] Lucila Flanagan CRNP [address] [facility] [place] [address] Health Maintenance Due Date Last Done Comments [...] PM EST [facility] [place] [facility]10 Specific [place], Urine >=1.030 1.003 - 1.030 06/20/2023 5:38 [...] 5:38 PM EST [facility] [place] 57-10 Urine 06/20/2023 5:35 PM EST 06/20/2023 5:38 PM EST Milton Balderas MD LAB POINT OF CAR E TEST DOCKED DEVICE UNSOLICITED RESULTS [facility] [place] [facility] [place] [address] documented in this encounter Visit Diagnoses Diagnosis Malaise and fatigue- Primary Other malaise and fatigue documented in this encounter Care Teams Trawl Net Maker Relationship Specialty Start Date End Date Milton Balderas MD [address] [place] [address] PCP - General Family Medicine 10/13/20 documented as of this encounter
--- OUTSIDE RECORDS SUMMARY | 2023-08-13 17:01 | External Medical Summary | Summary of Care ---
Author Name Unknown Organization [facility] Address [address] [place] [address] Phone [phone] Care Team Providers Care Supply Service Worker Name Role Phone Milton Balderas MD Primary Care Provider + Reason for Visit * Reason Onset Date Comments Test Results 07/31/2023 Encounter Details Date Type Department Care Team (Late st Contact Info) Description 07/31/2023 Telephone Nephrology, [facility] Sor[facility] [address] [place] [address] Neelam Hilliard MD [address] [place] [address] Test Results Allergies Active Allergy Reactions Criticality Noted Date Comments Neville Inhibitors Cough 09/29/2010 Lisinopril causes cough Ciprofloxacin Rash Medium 05/03/2014 Rash with first IV dose in hospital Metformin Diarrhea 09/29/2010 documented as of this encounter (statuses as of 08/10/2023) Medications Medication Sig Dispensed Refills Start Date [...] CHEW) 90 Tablet 3 06/20/2022 Active Nystatin 868996 UNIT/GM External Powder (Nystop)Indication s:Tinea corporis Apply [...] MORNING 90 Tablet 3 02/14/2023 Active Procrit 49292 UNIT/ML Injection SolutionIndication s:Anemia of chronic renal [...] PEN WEEKLY 6 mL 1 05/02/2023 Active CREDANT TechnologiesTouch Verio In Vitro Strip (Glucose Blood) Use to test blood sugar 2 times a day. DX E11.9 200 Strip 1 06/09/2023 Active CREDANT TechnologiesTouch Delica Lancets 30G USE TO CHECK GLUCOSE UP TO 4 TIMES DAILY 400 Each 3 06/09/2023 Active Fluticasone Propionate 50 MCG/ACT Nasal Suspension (Flonase) Administer 2 Sprays into each nostril in the morning. 16 g 1 07/07/2023 Active documented as of this encounter (statuses as of 08/10/2023) Active Problems Problem Noted Date Diagnosed Date [...] Overview: Found on barium swallow, 01/25/2010 at [facility] on CPAP 11/10/2010 Overview: Sleep study on 12/24/2009, [facility], Cpap 8, flex setting 3 AHP ICD-10 update of inactive term History of basal cell cancer 11/10/2010 Overview: BCC, left neck, 12/24/2009 ICD-10 update of inactive term HTN, goal below 130/80 09/29/2010 Dyslipidemia, goal LDL below 100 09/29/2010 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 Pernicious anemia Hypothyroidism GERD (gastroesophageal reflux disease) documented as of this encounter (statuses as of 08/10/2023) Resolved Problems Problem Noted Date Diagnosed Date [...] as of this encounter (statuses as of 08/10/2023) Immunizations Name Administration Dates Next Due COVID-19 mRNA, LNP-s, No Pre serve, 2-Dose Series (QuinStreet) 03/15/2021,07/15/2020,06/17/2020 Pneumococcal Conjugate Vacc, 13 Valent (Prevnar) [...] encounter Miscellaneous Notes * Telephone Encounter - Rochelle Saldivar LPN - 07/31/2023 9:34 AM EDT Spoke with pt will discuss with you at 08/31/23 Kamini PEREIRA * Telephone Encounter - Rochelle Saldivar LPN - 07/31/2023 9:32 AM EDT ----- Message from Neelam Hilliard MD sent at 07/28/2023 5:19 PM EDT ----- Proteinuria creeping up. At next opportunity, needs to repeat BMP; if still ok would recommend losartan increase. If not able to get to lab, can consider all this at August neph visit. >pls find out plan/preference >have PA f/u either way on repeat lab documented in this encounter Plan of Treatment Upcoming Encounters Date Type Department Care Team (Late st Contact Info) Description 08/31/2023 8:30 AM EDT Office Visit Nephrology, [facility] [address] [place] [address] Kamini Hyde PA-C [address] [place] [address] 09/12/2023 11:00 AM EDT Laboratory Laboratory, [address] [phone] [place], Laboratory [address] [place] [facility] [place] [address] 09/13/2023 9:30 AM EDT Pharmacy Pharmacy, [place] [address] [place] [address] Clinic, [facility] [address] [place] [address] 12/28/2023 10:00 AM EDT Office Visit Family Practice [facility] [address] [place] [address] Milton Balderas MD [address] [place] [address] 01/30/2024 8:30 AM EDT Office Visit Sleep Disorders Ctr [facility] [address] [place] [phone] Lucila Flanagan CRNP [address] [place] [address] Health Maintenance Due Date Last Done Comments Diabetic Eye Exam 12/23/2021 12/23/2020, , 12/19/2019, Additional history exists COVID-19 Vaccine ( season) 2023 03/15/2021, 07/15/2020, 06/17/2020 HbA1c 10/27/2023 04/27/2023, 07/07, 03/18/2022, Additional history exists Depression Screening 05/25/2024 [...] filedocumented as of this encounter Care Teams Supply Service Worker Relationship Specialty Start Date End Date Milton Balderas MD [address] [place] [address] PCP - General Family Medicine 10/13/20 documented as of this encounter
--- OUTSIDE RECORDS SUMMARY | 2023-08-13 17:01 | External Medical Summary | Summary of Care ---
Author Name Unknown Organization [facility] Address [address] [place] [address] Phone [phone] Care Team Providers Care Filler Machine Operator Name Role Phone Milton De Luna MD Primary Care Provider + Reason for Visit * Reason Onset Date Comments Medication Refill 07/07/2023 Encounter Details Date Type Department Care Team (Late st Contact Info) Description 07/07/[address] [facility] [place] [address] [place] [id number] Milton De Luna MD [address] [place] [address] Allergies Active Allergy Reactions Criticality Noted Date Comments Neville Inhibitors Cough 09/29/2010 Lisinopril causes cough Ciprofloxacin Rash Medium 05/03/2014 Rash with first IV dose in hospital Metformin Diarrhea 09/29/2010 documented as of this encounter (statuses as of 07/07/2023) Medications Medication Sig Dispensed Refills Start Date End Date Status ASPIRIN 81 MG PO TABSIndications:t akes at night Take by mouth daily. Indications: [...] Oral Tablet Extended Release 24 Hour (Ditropan XL)Indications:Ur inary frequency TAKE 1 TABLET DAILY (DO NOT CUT, CRUSH OR CHEW) 90 Tablet 3 06/20/2022 Active Nystatin 221286 UNIT/GM External Powder (Nystop)Indicatio ns:Tinea corporis Apply topically to affected area 3 times a day. Apply to under breasts and belly 60 g 1 07/13/2022 Active Losartan Potassium 25 MG Oral Tablet (Cozaar) TAKE 1 TABLET DAILY AT LUNCH 90 Tablet 3 10/04/2022 Active Boost Oral Liquid Take by mouth daily. 0 Active Vitamin D3 25 MCG (1000 UT) Oral Tablet (Vitamin D3)Indications:Vi tamin D deficiency Take 1 Tablet by mouth in the morning. 0 12/22/2022 Active Veltassa 8.4 GM Oral Packet (Patiromer Sorbitex Calcium)Indicatio ns:End stage renal disease (HCC) take 1 packet every other day 30 Each 3 12/26/2022 Active CPAP every night at bedtime. 0 Active Levothyroxine Sodium 75 MCG Oral Tablet (Levoxyl) TAKE 1 TABLET DAILY FIRST THING IN THE MORNING 90 Tablet 3 02/14/2023 Active Procrit 86192 UNIT/ML Injection SolutionIndicatio ns:Anemia of chronic renal failure, unspecified stage Inject [...] Active Trulicity 0.75 MG/0.5ML Subcutaneous Solution Pen-injector (Dulaglutide)Shaylee cations:Type 2 diabetes mellitus with stage 4 chronic [...] the morning. 16 g 1 07/07/2023 Active Fluticasone Propionate 50 MCG/ACT Nasal Suspension (Flonase) Administer 2 Sprays into each nostril in the morning. 16 g 1 04/10/2023 4 Discontinu ed(Refill) documented as of this encounter (statuses as of 07/07/2023) Active Problems Problem Noted Date Diagnosed Date [...] Overview: Found on barium swallow, 01/25/2010 at [facility] on CPAP 11/10/2010 Overview: Sleep study on 12/24/2009, [facility], Cpap 8, flex setting 3 AHP ICD-10 update of inactive term History of basal cell cancer 11/10/2010 Overview: BCC, left neck, 12/24/2009 ICD-10 update of inactive term HTN, goal below 130/80 09/29/2010 Dyslipidemia, goal LDL below 100 09/29/2010 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 Pernicious anemia Hypothyroidism GERD (gastroesophageal reflux disease) documented as of this encounter (statuses as of 07/07/2023) Resolved Problems Problem Noted Date Diagnosed Date [...] as of this encounter (statuses as of 07/07/2023) Immunizations Name Administration Dates Next Due COVID-19 mRNA, LNP-s, No Pre serve, 2-Dose Series (Netatmo) 03/15/2021,07/15/2020,06/17/2020 Pneumococcal Conjugate Vacc, 13 Valent (Prevnar) [...] encounter Miscellaneous Notes * Telephone Encounter - Ursula Bell RPh - 07/07/2023 10:09 AM EST Signed Prescriptions: Disp Refills Fluticasone Propionate 50 MCG/ACT Nasal Rodriguez*16 g 1 Sig: Administer 2 Sprays into each nostril in the morning. Authorizing Provider: MILTON DE LUNA Ordering User: URSULA BELL * Telephone Encounter - Britney Franco PHARM Tech - 07/07/2023 9:52 AM EST Pt out of medication Did you pend patient's preferred pharmacy and medication before forwarding?yes Pharmacy: [id number] [facility] Pending Prescriptions: Disp Refills Fluticasone Propionate 50 MCG/ACT Nasal S*16 g 1 Sig: Administer 2 Sprays into each nostril in the morning. Last Visit: 06/20/2023 (in office), Visit date not found (telemedicine) Next Visit: 12/28/2023 If no future appointments scheduled, and last appointment is greater than a year ago, please schedule patient for a follow-up appointment Last date the medication was ordered: 04/10/23 Is this request for a controlled substance?No Urine Drug Screen:No results found. However, due to the size of the patient record, not all encounters were searched. Please check Results Review for a complete set of results. Patient Phone Numbers Labs: Lab Results Component Value Date/Time CREAT 1.6 (H) 06/19/2023 04:23 PM CREAT 1.66 (A) 03/20/2022 12:00 AM CREAT 1.4 (H) 05/18/2020 11:02 AM POTASSIUM 4.3 03/23/2023 02:26 PM POTASSIUM 4.6 03/20/2022 12:00 AM POTASSIUM 4.8 03/16/2020 10:43 AM TSH 3.12 06/19/2023 04:23 PM TSH 2.20 05/18/2020 11:02 AM LDLCALC 39 08/30/2021 10:39 AM LDLCALC 26 03/16/2020 10:44 AM LDLDIRECT 105 11/28/2022 03:27 PM LDLDIRECT NOT APPLICABLE 03/16/2020 10:44 AM LDLDIRECT 81 08/09/2011 08:19 AM ALT 56 (H) 01/02/2023 01:09 PM ALT 66 (H) 06/24/2019 09:24 AM HGBA1C 6.6 (H) 04/27/2023 11:13 AM HGBA1C 7.4 (H) 02/17/2020 10:23 AM documented in this encounter Plan of Treatment Upcoming Encounters Date Type Department Care Team (Late st Contact Info) Description 08/01/2023 10:00 AM EDT Laboratory Laboratory, [place] [facility] [phone] [facility]laine [facility] [address] 08/02/2023 9:30 AM EDT Pharmacy Pharmacy, [place] [address] [place] [address] Clinic, [facility] [address] [place] [address] 08/31/2023 8:30 AM EDT Office Visit Nephrology, [facility] [address] [facility] [address] [place] [address] Kamini Hyde PA-C [address] [place] [address] 12/28/2023 10:00 AM EDT Office Visit Family Practice [facility] [place] [address] [facility] [place] [address] Milton De Luna MD [address] [facility] [place] [address] 01/30/2024 8:30 AM EDT Office Visit Sleep Disorders Ctr [facility] [address] [facility] [place] [phone] Lucila Flanagan CRNP [address] [facility] [place] [address] Health Maintenance Due Date Last Done Comments [...] filedocumented as of this encounter Care Teams Filler Machine Operator Relationship Specialty Start Date End Date Milton De Luna MD [address] [place] [address] PCP - General Family Medicine 10/13/20 documented as of this encounter
--- OUTSIDE RECORDS SUMMARY | 2023-08-13 17:02 | External Medical Summary ---
Author Name Unknown Address Unknown Organization [id number]:LABORATORY [facility] - [address] [place] [address] Laboratory Report Ordering Provider Test Date Status STU LANDERS 06/19/2023 16:23:26 Final Observation Date Value Abnormality Reference (Units ) Status Retic, % (auto) 06/19/2023 16:23:26 1.80 0.80-1.90 (%) Final Reticulocytes, Absolute 06/19/2023 16:23:26 66.1 31.3-100.1 (K/uL) Final Reticulocyte fraction, immature 06/19/2023 16:23:26 14.3 2.5-20.6 (%) Final Reticulocyte HGB 06/19/2023 16:23:26 33.0 29.7-37.4 (pg) Final Performing Location LABORATORY [facility] - [address] [place] [address]
--- OUTSIDE RECORDS SUMMARY | 2023-08-13 17:02 | External Medical Summary ---
Author Name Unknown Address Unknown Organization [id number]:LABORATORY [facility] [place] - [address] [place] [address] Laboratory Report Ordering Provider Test Date Status STU LANDERS 06/19/2023 16:23:26 Final Observation Date Value Abnormality Reference (Units ) Status TSH 06/19/2023 16:23:26 3.12 0.27-4.20 (uIU/mL) Final Performing Location LABORATORY [facility] - [address] [place] [address]
--- OUTSIDE RECORDS SUMMARY | 2023-08-13 17:02 | External Medical Summary | Summary of Care ---
Author Name Unknown Organization [facility] Address [address] [place] [address] Phone [phone] Care Team Providers Care Developmental Psychologist Name Role Phone Milton De Luna MD Primary Care Provider + Reason for Visit * Reason Onset Date Comments Medication Refill 06/08/2023 Encounter Details Date Type Department Care Team (Late st Contact Info) Description 06/08/2023 Refill Family Practice [facility] [address] [place] [id number] Milton De Luna MD [address] [place] [address] Allergies Active Allergy Reactions Criticality Noted Date Comments Neville Inhibitors Cough 09/29/2010 Lisinopril causes cough Ciprofloxacin Rash Medium 05/03/2014 Rash with first IV dose in hospital Metformin Diarrhea 09/29/2010 documented as of this encounter (statuses as of 06/09/2023) Medications Medication Sig Dispensed Refills Start Date [...] and 1 Capsule before bedtime. 0 Active OneTouch Delica Lancets 30G USE TO CHECK GLUCOSE UP TO 4 TIMES DAILY 400 Each 3 05/24/2020 Active Metamucil 0.36 GM Oral Capsule (Psyllium) [...] CHEW) 90 Tablet 3 06/20/2022 Active Nystatin 356937 UNIT/GM External Powder (Nystop)Indicatio ns:Tinea corporis Apply [...] MORNING 90 Tablet 3 02/14/2023 Active Procrit 99588 UNIT/ML Injection SolutionIndicatio ns:Anemia of chronic renal [...] E11.9 200 Strip 1 06/09/2023 Active OneTouch Verio In Vitro Strip (Glucose Blood) Use to test blood sugar 2 times a day. DX E11.9 200 Strip 3 06/16/2022 Discontinu ed(Refill) documented as of this encounter (statuses as of 06/09/2023) Active Problems Problem Noted Date Diagnosed Date [...] Overview: Found on barium swallow, 01/25/2010 at [facility] on CPAP 11/10/2010 Overview: Sleep study on 12/24/2009, [facility], Cpap 8, flex setting 3 AHP ICD-10 update of inactive term History of basal cell cancer 11/10/2010 Overview: BCC, left neck, 12/24/2009 ICD-10 update of inactive term HTN, goal below 130/80 09/29/2010 Dyslipidemia, goal LDL below 100 09/29/2010 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 Pernicious anemia Hypothyroidism GERD (gastroesophageal reflux disease) documented as of this encounter (statuses as of 06/09/2023) Resolved Problems Problem Noted Date Diagnosed Date [...] as of this encounter (statuses as of 06/09/2023) Immunizations Name Administration Dates Next Due COVID-19 mRNA, LNP-s, No Pre serve, 2-Dose Series ([employer]) 03/15/2021,07/15/2020,06/17/2020 Pneumococcal Conjugate Vacc, 13 Valent (Prevnar) [...] Miscellaneous Notes * Telephone Encounter - Ursula Lopez [facility] - 06/09/2023 12:07 PM EST Signed Prescriptions: Disp Refills OneTouch Verio In Vitro Strip (Glucose Blo*200 St*1 Sig: Use to test blood sugar 2 times a day. DX E11.9Authorizing Provider: MILTON DE LUNAOrdering User: MILTON GONZALEZ * Telephone Encounter - Milton Gonzalez [facility] - 06/09/2023 12:07 PM EST Signed Prescriptions: Disp Refills OneTouch Verio In Vitro Strip (Glucose Blo*200 St*1 Sig: Use to test blood sugar 2 times a day. DX E11.9 Authorizing Provider: MILTON DE LUNA Ordering User: MILTON GONZALEZ * Telephone Encounter - Eveyln Kumar electric shovel operator - 06/09/2023 12:05 PM EST Pt is calling again he needs this today Thank you for your assistance Evelyn Kumar Link Trainer Maintenance Worker II [facility] Pharmacy Services (CCPS) (Formerly Telepharmacy) 06/09/2023,12:06 PM * Telephone Encounter - Carmela Figueroa LPN - 06/09/2023 10:59 AM ESTPending Prescriptions: Disp Refills OneTouch Verio In Vitro Strip (Glucose Blo*200 St*3 Sig: Use to test blood sugar 2 times a day. DX E11.9 * Telephone Encounter - Gogo Houston CPhT - 06/09/2023 10:32 AM EST Patient's calling to check on status of Rx. Caller can be reached at [phone] . Thank you, Gogo Houston Physician Ophthalmologist [facility] 06/09/2023, 10:32 AM * Telephone Encounter - Rena Ca PHARM Tech - 06/08/2023 4:31 PM EST Did you pend patient's preferred pharmacy and medication before forwarding?yes Pharmacy: [id number] [facility] Pending Prescriptions: Disp Refills OneTouch Verio In Vitro Strip (Glucose Bl*200 St*3 Sig: Use to test blood sugar 2 times a day. DX E11.9 Last Visit: 05/25/2023 (in office), Visit date not found (telemedicine) Next Visit: 12/28/2023 If no future appointments scheduled, and last appointment is greater than a year ago, please schedule patient for a follow-up appointment Last date the medication was ordered: 06/16/22 Is this request for a controlled substance?No Urine Drug Screen:No results found. However, due to the size of the patient record, not all encounters were searched. Please check Results Review for a complete set of results. Patient Phone Numbers Labs: Lab Results Component Value Date/Time CREAT 1.4 (H) 04/27/2023 11:13 AM CREAT 1.66 (A) 03/20/2022 12:00 AM CREAT 1.4 (H) 05/18/2020 11:02 AM POTASSIUM 4.3 03/23/2023 02:26 PM POTASSIUM 4.6 03/20/2022 12:00 AM POTASSIUM 4.8 03/16/2020 10:43 AM TSH 3.13 04/27/2023 11:13 AM TSH 2.20 05/18/2020 11:02 AM LDLCALC 39 [...] Team (Late st Contact Info) Description 06/20/2023 10:00 AM EST Laboratory Laboratory, [place] [address] [place] [phone] [place], [facility] [address] [place] [address] 06/21/2023 9:30 AM EST Pharmacy Pharmacy, [place] [address] [place] [address] Clinic, [facility] [address] [place] [address] 08/31/2023 8:30 AM EDT Office Visit Nephrology, [place] Sor[facility] [address] [facility] [place] [address] ZeKamini hodges PA-C [address] [facility] [place] [address] 12/28/2023 10:00 AM EDT Office Visit Family Practice [facility] [address] [place] [address] Milton De Luna MD [address] [place] [address] 01/30/2024 8:30 AM EDT Office Visit Sleep Disorders Ctr [facility] [address] [place] [phone] Lucila Flanagan CRNP [address] [place] [address] Health Maintenance Due Date Last Done Comments Hepatitis B (1 of 3 - Risk 3-dose series) 1997 Diabetic Eye Exam 12/23/2021 12/23/2020, , 12/19/2019, Additional history exists COVID-19 Vaccine ( season) 2023 03/15/2021, 07/15/2020, 06/17/2020 HbA1c 10/27/2023 04/27/2023, 07/07, 03/18/2022, Additional history exists TSH 04/27/2024 04/27/2023, 03/08, 02/21/2023, Additional history exists Albumin/Creatinine Ratio 04/28/2024 023, 03/23/2023, 11/29/2022, Additional history exists Depression Screening 05/25/2024 05/25/2023 Diabetic Foot Exam 05/25/2024 05/25/2023, 0 08/18/2021, 08/27/2020, Additional history exists DTaP,Tdap,and Td Vaccines (3 [...] Not on filedocumented as of this encounter Additional Health Concerns Infection Onset Date Last Indicated Resolved Time ESBL 04/10/2023 04/10/2023 06/09/2023 12:1 8 AM EST documented as of this encounter Care Teams Developmental Psychologist Relationship Specialty Start Date End Date Milton De Luna MD [address] [place] [address] PCP - General Family Medicine 10/13/20 documented as of this encounter
--- OUTSIDE RECORDS SUMMARY | 2023-08-13 17:02 | External Medical Summary ---
Author Name Unknown Address Unknown Organization K01:LABORATORY [facility] [place] - [facility] [address] [place] [address] Laboratory Report Ordering Provider Test Date Status STU LANDERS 06/19/2023 16:23:26 Final Observation Date Value Abnormality Reference (Units ) Status Creatinine 06/19/2023 16:23:26 1.6 Above high normal 0.5-1.0 (mg/dL) Final Glomerular filtration rate/1.73 sq M.predicted [Volume Rate/Area] in Serum, Plasma or Blood by Creatinine-based formula (CKD-EPI) 06/19/2023 16:23:26 32 Below low normal >=60 (mL/min) Final eGFR is calculated based on the CKD-EPI 2020 equation Performing Location LABORATORY [facility] - [facility] [address] [place] [address]
--- OUTSIDE RECORDS SUMMARY | 2023-08-13 17:02 | External Medical Summary | Summary of Care ---
Author Name Unknown Organization [facility] Address [address] [place] [address] Phone [phone] Care Team Providers Care Patent Legal Assistant Name Role Phone Milton Balderas MD Primary Care Provider + Reason for Visit * Reason Onset Date Comments Other 02/28/2023 Encounter Details Date Type Department Care Team (Late st Contact Info) Description 02/28/2023 Telephone Pharmacy Call Center [phone] [place] [address] Clinic, [facility] [address] [place] [address] Other Allergies Active Allergy Reactions Criticality Noted Date Comments Neville Inhibitors Cough 09/29/2010 Lisinopril causes cough Ciprofloxacin Rash Medium 05/03/2014 Rash with first IV dose in hospital Metformin Diarrhea 09/29/2010 documented as of this encounter (statuses as of 05/30/2023) Medications Medication Sig Dispensed Refills Start Date [...] Dx: E11.9 200 Each 3 06/14/2022 Active OneTouch Verio In Vitro Strip (Glucose Blood) Use to test blood sugar 2 times a day. DX E11.9 200 Strip 3 06/16/2022 Active Oxybutynin Chloride ER 5 MG Oral Tablet Extended Release 24 Hour (Ditropan XL)Indications:Ur inary frequency TAKE 1 TABLET DAILY (DO NOT CUT, CRUSH OR CHEW) 90 Tablet 3 06/20/2022 Active Nystatin 176992 UNIT/GM External Powder (Nystop)Indicatio ns:Tinea corporis Apply [...] MORNING 90 Tablet 3 02/14/2023 Active Procrit 91188 UNIT/ML Injection SolutionIndicatio ns:Anemia of chronic renal failure, unspecified stage Inject 10,000 units subcutaneous every 4 weeks, 84-day supply. 3 mL 3 02/23/2023 Active BD TB Syringe 27G X 1/2" 1 ML (Tuberculin Syringe) Use to inject Procrit monthly or as directed 3 Each 1 02/23/2023 Active documented as of this encounter (statuses as of 05/30/2023) Active Problems Problem Noted Date Diagnosed Date [...] Found on barium swallow, 01/25/2010 at [facility] on CPAP 11/10/2010 Overview: Sleep study on 12/24/2009, [facility], Cpap 8, flex setting 3 AHP ICD-10 update of inactive term History of basal cell cancer 11/10/2010 Overview: BCC, left neck, 12/24/2009 ICD-10 update of inactive term HTN, goal below 130/80 09/29/2010 Dyslipidemia, goal LDL below 100 09/29/2010 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 Pernicious anemia Hypothyroidism GERD (gastroesophageal reflux disease) documented as of this encounter (statuses as of 05/30/2023) Resolved Problems Problem Noted Date Diagnosed Date [...] as of this encounter (statuses as of 05/30/2023) Immunizations Name Administration Dates Next Due COVID-19 mRNA, LNP-s, No Pre serve, 2-Dose Series (27 Perry) 03/15/2021,07/15/2020,06/17/2020 Pneumococcal Conjugate Vacc, 13 Valent (Prevnar) [...] encounter Miscellaneous Notes * Telephone Encounter - Magdalene Gonzalez layout inspector - 02/28/2023 8:12 AM EDT Caller's name: ekta Maxwell call back number(OFFICE NUMBER FOR ): [phone] Reason for call: pt calling in regarding not receiving shots in the mail. This was left via vm, please advise pt. Thank you, Magdalene Gonzalez Data Security Coordinator [facility] ([facility]PS) (Formerly Telepharmacy) 02/28/2023,8:12 AM documented in this encounter Plan of Treatment Upcoming Encounters Date Type Department Care Team (Late st Contact Info) Description 06/20/2023 10:00 AM EST Laboratory Laboratory, [place] [address] [place] [phone] [facility] [address] [place] [address] 06/21/2023 9:30 AM EST Pharmacy Pharmacy, [address] [address] [facility] [address] [place] [address] 08/31/2023 8:30 AM EDT Office Visit Nephrology, Alisia Soriano [address] [place], [place] [address] Kamini Hyde PA-C [address] [place] [address] 12/28/2023 10:00 AM EDT Office Visit Family Practice [facility] [address] [place] [address] Milton Balderas MD [address] [place] [address] 01/30/2024 8:30 AM EDT [facility] [address] [place] [phone] Lucila Flanagan CRNP [address] [place] [address] Health Maintenance Due Date Last Done Comments [...] Last Indicated Resolved Time ESBL 04/10/2023 04/10/2023 documented as of this encounter Care Teams Patent Legal Assistant Relationship Specialty Start Date End Date Milton Balderas MD [address] [place] [address] PCP - General Family Medicine 10/13/20 documented as of this encounter
--- OUTSIDE RECORDS SUMMARY | 2023-08-13 17:02 | External Medical Summary ---
Author Name Unknown Address Unknown Organization K01:LABORATORY [facility] [place] - [address] [place] [address] Laboratory Report Ordering Provider Test Date Status SARAH LANDERSJAVI 06/19/2023 16:23:26 Final Observation Date Value Abnormality Reference (Units ) Status Ferritin 06/19/2023 16:23:26 438 Above high normal 13 -150 (ng/mL) Final Postmenopausal women have hi gher ferritin levels than pre-menopausal women. The above reference interval is based on pre-menopausal women. Performing Location LABORATORY C - [address] [place] [address]
--- OUTSIDE RECORDS SUMMARY | 2023-08-13 17:02 | External Medical Summary | Summary of Care ---
Author Name Unknown Organization [facility] Address [address] [place] [address] Phone [phone] Care Team Providers Care Cosmetic Chemist Name Role Phone Milton Balderas MD Primary Care Provider + Reason for Visit * Reason Onset Date Comments Medication Question 02/28/2023 Encounter Details Date Type Department Care Team (Late st Contact Info) Description 02/28/2023 Telephone Pharmacy, [place] [address] [place] [address] Clinic, [facility] [address] [place] [address] Medication Question Allergies Active Allergy Reactions Criticality Noted Date [...] CHEW) 90 Tablet 3 06/20/2022 Active Nystatin 464495 UNIT/GM External Powder (Nystop)Indicatio ns:Tinea corporis Apply [...] MORNING 90 Tablet 3 02/14/2023 Active Procrit 27676 UNIT/ML Injection SolutionIndicatio ns:Anemia of chronic renal [...] Overview: Found on barium swallow, 01/25/2010 at [facility] on CPAP 11/10/2010 Overview: Sleep study on 12/24/2009, [facility], Cpap 8, flex setting 3 AHP [...] mRNA, LNP-s, No Pre serve, 2-Dose Series ([employer]) 03/15/2021,07/15/2020,06/17/2020 Pneumococcal Conjugate Vacc, 13 Valent (Prevnar) [...] encounter Miscellaneous Notes * Telephone Encounter - Donna Case machine oiler - 02/28/2023 10:22 AM EDT Caller's name: Margarito Preferred call back number(OFFICE NUMBER FOR ): [phone] Reason for call: Patient's Margarito calling to speak with [facility]. Please advise and return his call. Thank you, Donna Case Calculator Operator [facility] 02/28/2023,10:22 AM documented in this encounter Plan of Treatment Upcoming Encounters Date Type Department Care Team (Late st Contact Info) Description 06/20/2023 10:00 AM EST Laboratory Laboratory, [address] [phone] [place] [address] [place] [address] 06/21/2023 9:30 AM EST Pharmacy Pharmacy, [place] [address] [place] [address] [place] [address] [place] [address] 08/31/2023 8:30 AM EDT Office Visit Nephrology, Alisia Soriano [address] [place] [address] ZemaitisKamini PA-C [address] [place] [address] 12/28/2023 10:00 AM EDT Office Visit Family Practice [facility] [address] [place] [address] Milton Balderas MD [address] [place] [address] 01/30/2024 8:30 AM EDT Office Visit Sleep Disorders Ctr [facility] [address] [place] [phone] Lucila Flanagan CRNP [address] [place] [address] Health Maintenance Due Date Last Done Comments [...] documented as of this encounter Care Teams Cosmetic Chemist Relationship Specialty Start Date End Date Milton Balderas MD [address] [place] [address] PCP - General Family Medicine 10/13/20 documented as of this encounter
--- OUTSIDE RECORDS SUMMARY | 2023-08-13 17:02 | External Medical Summary | Summary of Care ---
Author Name Unknown Organization [facility] Address [address] [place] [address] Phone [phone] Care Team Providers Care Wealth Management Director Name Role Phone Milton Balderas MD Primary Care Provider + Reason for Visit * Reason Onset Date Comments Other 02/23/2023 Encounter Details Date Type Department Care Team (Late st Contact Info) Description 02/23/2023 Telephone Pharmacy, [place] [facility] [address] [place] [address] [address] Clinic, [place] [address] [place] [address] Other Allergies Active Allergy Reactions Criticality Noted Date Comments Neville Inhibitors Cough 09/29/2010 Lisinopril causes cough Ciprofloxacin Rash Medium 05/03/2014 Rash with first IV dose in hospital Metformin Diarrhea 09/29/2010 documented as of this encounter (statuses as of 05/25/2023) Medications Medication Sig Dispensed Refills Start Date [...] CHEW) 90 Tablet 3 06/20/2022 Active Nystatin 898157 UNIT/GM External Powder (Nystop)Indicatio ns:Tinea corporis Apply [...] MORNING 90 Tablet 3 02/14/2023 Active Procrit 65897 UNIT/ML Injection SolutionIndicatio ns:Anemia of chronic renal failure, unspecified stage Inject 10,000 units subcutaneous every 4 weeks, 84-day supply. 3 mL 3 02/23/2023 Active BD TB Syringe 27G X 1/2" 1 ML (Tuberculin Syringe) Use to inject Procrit monthly or as directed 3 Each 1 02/23/2023 Active documented as of this encounter (statuses as of 05/25/2023) Active Problems Problem Noted Date Diagnosed Date [...] Overview: Found on barium swallow, 01/25/2010 at [facility] on CPAP 11/10/2010 Overview: Sleep study on 12/24/2009, [facility], Cpap 8, flex setting 3 AHP ICD-10 update of inactive term History of basal cell cancer 11/10/2010 Overview: BCC, left neck, 12/24/2009 ICD-10 update of inactive term HTN, goal below 130/80 09/29/2010 Dyslipidemia, goal LDL below 100 09/29/2010 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 Pernicious anemia Hypothyroidism GERD (gastroesophageal reflux disease) documented as of this encounter (statuses as of 05/25/2023) Resolved Problems Problem Noted Date Diagnosed Date [...] as of this encounter (statuses as of 05/25/2023) Immunizations Name Administration Dates Next Due COVID-19 mRNA, LNP-s, No Pre serve, 2-Dose Series ([employer]) 03/15/2021,07/15/2020,06/17/2020 Pneumococcal Conjugate Vacc, 13 Valent (Prevnar) [...] encounter Miscellaneous Notes * Telephone Encounter - Jaime Mcdonald ice house supervisor - 02/23/2023 10:23 AM EDT Caller's name: Ekta Maxwell call back number(OFFICE NUMBER FOR ): [phone] Reason for call: Pt requesting to speak to anemia about her procrit shots. Thank you, Jaime Mcdonald [facility] Oxygen Plant Operator [facility] 02/23/2023,10:23 AM documented in this encounter Plan of Treatment Upcoming Encounters Date Type Department Care Team (Late st Contact Info) Description 06/20/2023 10:00 AM EST Laboratory Laboratory, [place] [address] [place] [phone] [facility] [address] [place] [address] 06/21/2023 9:30 AM EST Pharmacy Pharmacy, [place] [address] [place] [address] Clinic, [facility] [address] [place] [address] 08/31/2023 8:30 AM EDT Office Visit Nephrology, Alisia Soriano [address] [place], [place] [address] Kamini Hyde PA-C [address] [place], [place] [address] 12/28/2023 10:00 AM EDT Office Visit Family Practice [facility] [address] [place] [address] Milton Balderas MD [address] [place] [address] 01/30/2024 8:30 AM EDT Office Visit Sleep Disorders Ctr [facility] [address] [place] [phone] Lucila Flanagan CRNP [address] [place] [address] Health Maintenance Due Date Last Done Comments [...] documented as of this encounter Care Teams Wealth Management Director Relationship Specialty Start Date End Date Milton Balderas MD [address] [place] [address] PCP - General Family Medicine 10/13/20 documented as of this encounter
--- OUTSIDE RECORDS SUMMARY | 2023-08-13 17:02 | External Medical Summary ---
Author Name Unknown Address Unknown Organization K01:LABORATORY [facility] [place] - [address] [place] [address] Laboratory Report Ordering Provider Test Date Status STU LANDERS 06/19/2023 16:23:26 Final Observation Date Value Abnormality Reference (Units ) Status Iron 06/19/2023 16:23:26 44 33-151 (ug/dL) Final Iron-binding capacity 06/19/2023 16:23:26 311 250-425 (ug/dL) Final Transferrin Sat % 06/19/2023 16:23:26 14 Below low normal 15-55 (%) Final Performing Location LABORATORY C - [address] [place] [address]
--- OUTSIDE RECORDS SUMMARY | 2023-08-13 17:02 | External Medical Summary ---
Author Name Unknown Address Unknown Organization K01:[facility]ORY [facility] [place] [address] [facility] [address] Laboratory Report Ordering Provider Test Date Status STU LANDERS 06/19/2023 16:23:26 Final Observation Date Value Abnormality Reference (Units ) Status WBC, Total 06/19/2023 16:23:26 10.19 4.00-10.8 0 (K/uL) Final RBC 06/19/2023 16:23:26 3.61 3.85-5.15 (M/uL) Final Hemoglobin 06/19/2023 16:23:26 10.9 Below low normal 12 .0-15.3 (g/dL) Final Anemia reflex testing trigge rs on a HGB < 12.0 for Females and HGB < 13.0 for Males in accordance with the WHO Anemia Guidelines
Anemia reflex testing triggers on a HGB < 12.0 for Females and HGB < 13.0 for Males in accordance with the WHO Anemia Guidelines HCT 06/19/2023 16:23:26 34.3 Below low normal 36. 0-45.2 (%) Final MCV 06/19/2023 16:23:26 95.0 81.5-97.5 (fL) Final MCH 06/19/2023 16:23:26 30.2 27.0-34.0 (pg) Final MCHC 06/19/2023 16:23:26 31.8 32.0-36.0 (g/dL) Final RDW 06/19/2023 16:23:26 12.8 11.5-15.5 (%) Final Platelets 06/19/2023 16:23:26 198 140-400 (K /uL) Final MPV 06/19/2023 16:23:26 12.3 6.6-11.1 ( fL) Final Nucleated erythrocytes/100 leukocytes [Ratio] in Blood by Automated count 06/19/2023 16:23:26 0 <=0 (/100 WBCs) Final Performing Location LAB[facility]ATORY [facility] [place] [facility] [address] [facility] [address]
--- OUTSIDE RECORDS SUMMARY | 2023-08-13 17:02 | External Medical Summary ---
Author Name Unknown Address Unknown Organization K01:LABORATORY [facility] [place] [address] [place] [address] Laboratory Report Ordering Provider Test Date Status STU LANDERS 06/19/2023 16:23:26 Final Observation Date Value Abnormality Reference (Units ) Status Vitamin B12 06/19/2023 16:23:26 >2000 Above high normal 232-1245 (pg/mL) Final Performing Location LABORATORY C - [address] [place] [address]
--- OUTSIDE RECORDS SUMMARY | 2023-08-13 17:02 | External Medical Summary ---
Author Name Unknown Address Unknown Organization K01:LABORATORY [facility] [place] - [address] [place] [address] Laboratory Report Ordering Provider Test Date Status STU LANDERS 06/19/2023 16:23:26 Final Observation Date Value Abnormality Reference (Units ) Status Folic Acid 06/19/2023 16:23:26 15.1 >4.5 (ng/ mL) Final Performing Location LABORATORY [facility] - [address] [place] [address]
--- OUTSIDE RECORDS SUMMARY | 2023-08-13 17:02 | External Medical Summary ---
Author Name Unknown Address Unknown Organization [id number]:[facility] [place] [address] [facility] [place] [address] Laboratory Report Ordering Provider Test Date Status STU LANDERS 06/19/2023 16:23:26 Final Observation Date Value Abnormality Reference (Units ) Status SYNC LEUKOCYTES IN BLOOD BY AUTOMATED COUNT 06/19/2023 16:23:26 10.19 4.00-10.80 (K/uL) Final Segs 06/19/2023 16:23:26 66.4 40.0-75.0 (%) Final Lymphs % 06/19/2023 16:23:26 21.3 18.0-42.0 (%) Final Monos 06/19/2023 16:23:26 9.1 1.0-11.0 (%) Final Eosinophils 06/19/2023 16:23:26 2.1 0.0-6.0 (%) Final Basos 06/19/2023 16:23:26 0.8 0.0-2.0 (%) Final Immature Granulocyte, Percent 06/19/2023 16:23:26 0.3 0.0-2.0 (%) Final Absolute Segs 06/19/2023 16:23:26 6.77 1.80-7.70 (K/uL) Final Lymphs, absolute 06/19/2023 16:23:26 2.17 1.00-4.80 (K/ul) Final Monos, Abs 06/19/2023 16:23:26 0.93 0.00-1.10 (K/uL) Final Eos, Abs 06/19/2023 16:23:26 0.21 0.00-0.70 (K/uL) Final Basos, Abs 06/19/2023 16:23:26 0.08 0.00-0.20 (K/uL) Final Immature Granulocytes, Number 06/19/2023 16:23:26 0.03 0.00-0.20 (K/uL) Final Performing Location [facility] [place] [facility] [address] [facility] [address]
--- OUTSIDE RECORDS SUMMARY | 2023-08-13 17:02 | External Medical Summary ---
Author Name Unknown Address Unknown Organization K0G:LABORATORY [place] [address] - [address] [facility] [address] Laboratory Report Ordering Provider Test Date Status ANNAMARIE ROMANO 06/20/2023 17:35:00 Final Observation Date Value Abnormality Reference (Units ) Status Color of Urine by Auto 06/20/2023 17:35:00 Yellow Light Yellow, Yellow Final Clarity, Urine 06/20/2023 17:35:00 Clear Clear Final Glucose [Mass/volume] in Urine by Automated test strip 06/20/2023 17:35:00 Negative Negative (mg/dL) Final Bilirubin.total [Presence] in Urine by Automated test strip 06/20/2023 17:35:00 Negative Negative Final Ketones [Mass/volume] in Urine by Automated test strip 06/20/2023 17:35:00 Negative Negative (mg/dL) Final Specific gravity, Urine 06/20/2023 17:35:00 >=1.030 1.003-1.030 Final Hemoglobin [Presence] in Urine by Automated test strip 06/20/2023 17:35:00 Negative Negative Final pH, Urine 06/20/2023 17:35:00 5.5 5.0, 5.5, 6.0, 6.5, 7.0, 7.5 (units) Final Protein [Mass/volume] in Urine by Automated test strip 06/20/2023 17:35:00 >=300 Abnormal Negative (mg/dL) Final Urobilinogen, Urine 06/20/2023 17:35:00 0.2 0.2, 1.0 (mg/dL) Final Nitrite [Presence] in Urine by Automated test strip 06/20/2023 17:35:00 Negative Negative Final Leukocyte esterase [Presence] in Urine by Automated test strip 06/20/2023 17:35:00 Negative Negative Final Performing Location LABORATORY [facility] [facility] [place] [address]
--- OUTSIDE RECORDS SUMMARY | 2023-08-13 17:02 | External Medical Summary | Summary of Care ---
Author Name Unknown Organization [facility] Address [address] [place] [address] Phone [phone] Care Team Providers Care Adjunct Psychology Faculty Member Name Role Phone Milton De Luna MD Primary Care Provider + Reason for Visit * Reason Onset Date Comments Medication Refill 06/08/2023 Encounter Details Date Type Department Care Team (Late st Contact Info) Description 06/08/2023 Refill Family Practice [facility] [address] [place] [id number] Milton De Luna MD [address] [place] [...] CHEW) 90 Tablet 3 06/20/2022 Active Nystatin 186794 UNIT/GM External Powder (Nystop)Indicatio ns:Tinea corporis Apply [...] MORNING 90 Tablet 3 02/14/2023 Active Procrit 77550 UNIT/ML Injection SolutionIndicatio ns:Anemia of chronic renal [...] WEEKLY 6 mL 1 05/02/2023 Active OneTouch Delica Lancets 30G USE TO CHECK GLUCOSE UP TO 4 TIMES DAILY 400 Each 3 06/09/2023 Active OneTouch Delica Lancets 30G USE TO CHECK GLUCOSE UP TO 4 TIMES DAILY 400 Each 3 05/24/2020 4 Discontinu ed(Refill) OneTouch Verio In Vitro Strip (Glucose Blood) Use to test blood sugar 2 times a day. DX E11.9 200 Strip 3 06/16/2022 4 Discontinu ed(Refill) documented as of this [...] Overview: Found on barium swallow, 01/25/2010 at [facility] on CPAP 11/10/2010 Overview: Sleep study on 12/24/2009, [facility], Cpap 8, flex setting 3 [...] mRNA, LNP-s, No Pre serve, 2-Dose Series (Robert Applebaum MD) 03/15/2021,07/15/2020,06/17/2020 Pneumococcal Conjugate Vacc, 13 Valent (Prevnar) [...] encounter Miscellaneous Notes * Telephone Encounter - Milton De Luna MD - 06/09/2023 5:31 PM ESTSigned Prescriptions: Disp Refills OneTouch Delica Lancets 30G 400 Ea*3 Sig: USE TO CHECK GLUCOSE UP TO 4 TIMES DAILY Authorizing Provider: MILTON DE LUNA * Telephone Encounter - Alla Tijerina RPh - 06/09/2023 12:18 PM ESTPending Prescriptions: Disp Refills OneTouch Delica Lancets 30G 400 Ea*3 Sig: USE TO CHECK GLUCOSE UP TO 4 TIMES DAILY * Telephone Encounter - Alla Tijerina RPh - 06/09/2023 12:18 PM EST Last sent 05/24/20. Please approve if appropriate. Thanks, Alla Tijerina Clinical Pharmacist [facility] ([facility]) (Formerly Telepharm[facility]) [phone] 06/09/2023, 12:18 PM * Telephone Encounter - Rena Ca PHARM Tech - 06/08/2023 4:41 PM EST Did you pend patient's preferred pharmacy and medication before forwarding?yes Pharmacy: [facility] Pending Prescriptions: Disp Refills OneTouch Delica Lancets 30G 400 Ea*3 Sig: USE TO CHECK GLUCOSE UP TO 4 TIMES DAILY Last Visit: 05/25/2023 (in office), Visit date not found (telemedicine) Next Visit: 12/28/2023 If no future appointments scheduled, and last appointment is greater than a year ago, please schedule patient for a follow-up appointment Last date the medication was ordered: 05/24/20 Is this request for a controlled substance?No [...] Description 06/20/2023 10:00 AM EST Laboratory Laboratory, [address] [phone] [place] [address] [place] [address] 06/21/2023 9:30 AM EST Pharmacy Pharmacy, [place] [address] [place] [address] Clinic, [place] [address] [place] [address] 08/31/2023 8:30 AM EDT Office Visit Nephrology, [facility] [address] [place] [address] ZemaitisKamini PA-C [address] [place] [address] 12/28/2023 10:00 AM EDT Office Visit Family Practice [facility] [address] [place] [address] Milton De Luna MD [address] [place] [address] 01/30/2024 8:30 AM EDT Office Visit Sleep Disorders Ctr [facility] [address] [place] [phone] Lucila Flanagan CRNP [address] [place] [address] Health Maintenance Due Date Last Done Comments [...] documented as of this encounter Care Teams Adjunct Psychology Faculty Member Relationship Specialty Start Date End Date Milton De Luna MD [address] [place] [address] PCP - General Family Medicine 10/13/20 documented as of this encounter
--- OUTSIDE RECORDS SUMMARY | 2023-08-13 17:02 | External Medical Summary | Summary of Care ---
Author Name Unknown Organization [facility] Address [address] [place] [address] Phone [phone] Care Team Providers Care Cath Lab Nurse Name Role Phone Milton Balderas MD Primary Care Provider + Reason for Visit * Reason Comments Outpatient Testing Encounter Details Date Type Department Care Team (Late st Contact Info) Description 06/19/2023 1:10 PM EST Laboratory Laboratory, [place] [address] [place] [address] [place] [address] [place] [address] Anemia of chronic renal failure, stage 4 (severe) ([facility]); Anemia of chronic renal failure, unspecified stage Allergies Active Allergy Reactions Criticality Noted Date Comments Neville Inhibitors Cough 09/29/2010 Lisinopril causes cough Ciprofloxacin Rash Medium 05/03/2014 Rash with first IV dose in hospital Metformin Diarrhea 09/29/2010 documented as of this encounter (statuses as of 06/19/2023) Medications Medication Sig Dispensed Refills Start Date [...] CHEW) 90 Tablet 3 06/20/2022 Active Nystatin 623188 UNIT/GM External Powder (Nystop)Indication s:Tinea corporis Apply [...] MORNING 90 Tablet 3 02/14/2023 Active Procrit 13238 UNIT/ML Injection SolutionIndication s:Anemia of chronic renal [...] PEN WEEKLY 6 mL 1 05/02/2023 Active The ExchangeTouch Verio In Vitro Strip (Glucose Blood) Use to test blood sugar 2 times a day. DX E11.9 200 Strip 1 06/09/2023 Active The ExchangeTouch Delica Lancets 30G USE TO CHECK GLUCOSE UP TO 4 TIMES DAILY 400 Each 3 06/09/2023 Active documented as of this encounter (statuses as of 06/19/2023) Active Problems Problem Noted Date Diagnosed Date [...] Overview: Found on barium swallow, 01/25/2010 at [facility] on CPAP 11/10/2010 Overview: Sleep study on 12/24/2009, [facility], Cpap 8, flex setting 3 AHP ICD-10 update of inactive term History of basal cell cancer 11/10/2010 Overview: BCC, left neck, 12/24/2009 ICD-10 update of inactive term HTN, goal below 130/80 09/29/2010 Dyslipidemia, goal LDL below 100 09/29/2010 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 Pernicious anemia Hypothyroidism GERD (gastroesophageal reflux disease) documented as of this encounter (statuses as of 06/19/2023) Resolved Problems Problem Noted Date Diagnosed Date [...] as of this encounter (statuses as of 06/19/2023) Immunizations Name Administration Dates Next Due COVID-19 mRNA, LNP-s, No Pre serve, 2-Dose Series ([employer]) 03/15/2021,07/15/2020,06/17/2020 Pneumococcal Conjugate Vacc, 13 Valent (Prevnar) [...] Description 06/20/2023 10:00 AM EST Laboratory Laboratory, [address] [phone] [place] [address] [place] [address] 06/20/2023 5:40 PM EST Office Visit Family Practice [facility] [address] [facility] [place] [address] Milton Balderas MD [address] [facility] [place] [address] 06/21/2023 9:30 AM EST Pharmacy Pharmacy, [place] [address] [place] [address] Clinic, [facility] [address] [place] [address] 08/31/2023 8:30 AM EDT Office Visit [facility] [address] [place], [place] [address] Kamini Hyde PA-C [address] [place] [address] 12/28/2023 10:00 AM EDT Office Visit Family Practice [facility] [address] [place] [address] Milton Balderas MD [address] [place] [address] 01/30/2024 8:30 AM EDT Office Visit Sleep Disorders Ctr [facility] [address] [place] [phone] Lucila Flanagan CRNP [address] [place] [address] Pending Results Name Type Priority Associated Diagnoses Date /Time CBC WITH WBC DIFFERENTIAL AND ANEMIA REFLEX WORKUP Lab Routine Anemia of chronic renal failure, stage 4 (severe) (HCC) Anemia of chronic renal failure, unspecified stage 06/19/2023 4:23 PM EST ANEMIA CBC Lab Routine Anemia of chronic renal failure, stage 4 (severe) (HCC) Anemia of chronic renal failure, unspecified stage 06/19/2023 4:23 PM EST DIFFERENTIAL, AUTOMATED Lab Routine Anemia of chronic renal failure, stage 4 (severe) (HCC) Anemia of chronic renal failure, unspecified stage 06/19/2023 4:23 PM EST ANEMIA REFLEX CHEMISTRY HOLD Lab Routine Anemia of chronic renal failure, stage 4 (severe) (HCC) Anemia of chronic renal failure, unspecified stage 06/19/2023 4:23 PM EST Health Maintenance Due Date Last Done Comments [...] chronic renal failure, stage 4 (severe) (HCC) Anemia of chronic renal failure, unspecified stage documented in this encounter Care Teams Cath Lab Nurse Relationship Specialty Start Date End Date Milton Balderas MD [address] [place] [address] PCP - General Family Medicine 10/13/20 documented as of this encounter
--- OUTSIDE RECORDS SUMMARY | 2023-08-13 17:02 | External Medical Summary | Summary of Care ---
Author Name Unknown Organization [facility] Address [address] [place] [address] Phone [phone] Care Team Providers Care Veterinarian Laboratory Animal Care Name Role Phone Milton Balderas MD Primary Care Provider + Reason for Visit * Reason Onset Date Comments Health Maintenance 06/02/2023 Encounter Details Date Type Department Care Team (Late st Contact Info) Description 06/02/2023 Telephone Family Practice [facility] [address] [place] [address] Milton Balderas MD [address] [place] [address] Health Maintenance Allergies Active Allergy Reactions Criticality Noted Date Comments Neville Inhibitors Cough 09/29/2010 Lisinopril causes cough Ciprofloxacin Rash Medium 05/03/2014 Rash with first IV dose in hospital Metformin Diarrhea 09/29/2010 documented as of this encounter (statuses as of 06/02/2023) Medications Medication Sig Dispensed Refills Start Date [...] CHEW) 90 Tablet 3 06/20/2022 Active Nystatin 760374 UNIT/GM External Powder (Nystop)Indication s:Tinea corporis Apply [...] MORNING 90 Tablet 3 02/14/2023 Active Procrit 27278 UNIT/ML Injection SolutionIndication s:Anemia of chronic renal [...] PEN WEEKLY 6 mL 1 05/02/2023 Active documented as of this encounter (statuses as of 06/02/2023) Active Problems Problem Noted Date Diagnosed Date [...] Overview: Found on barium swallow, 01/25/2010 at [facility] on CPAP 11/10/2010 Overview: Sleep study on 12/24/2009, [facility], Cpap 8, flex setting 3 AHP ICD-10 update of inactive term History of basal cell cancer 11/10/2010 Overview: BCC, left neck, 12/24/2009 ICD-10 update of inactive term HTN, goal below 130/80 09/29/2010 Dyslipidemia, goal LDL below 100 09/29/2010 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 Pernicious anemia Hypothyroidism GERD (gastroesophageal reflux disease) documented as of this encounter (statuses as of 06/02/2023) Resolved Problems Problem Noted Date Diagnosed Date [...] as of this encounter (statuses as of 06/02/2023) Immunizations Name Administration Dates Next Due COVID-19 [...] encounter Miscellaneous Notes * Telephone Encounter - Irasema Paula LPN - 06/02/2023 2:55 PM EST Care Gaps Comprehensive Care Outreach Last Office/Telemedicine Visit: 05/25/2023 (in office), Visit date not found (telemedicine) Next Office Visit: 12/28/2023 Hemoglobin AIC Results: Lab Results Component Value Date/Time HEMOGLOBIN A1C - [facility] 6.6 (H) 04/27/2023 11:13 AM HEMOGLOBIN A1C - [facility] 7.1 (H) 07/26/2022 03:25 PM HEMOGLOBIN A1C - [facility] 6.8 (H) 03/18/2022 10:20 AM HEMOGLOBIN A1C - [facility] 7.4 (H) 02/17/2020 10:23 AM HEMOGLOBIN A1C - [facility] 7.0 (H) 07/29/2019 09:52 AM HEMOGLOBIN A1C - [facility] 6.4 (H) 01/18/2019 01:37 PM Reviewed Health Maintenance below: Health Maintenance Topic Date Due Hepatitis B (1 of 3 - Risk 3-dose series) Never done Diabetic Eye Exam 12/23/2021 COVID-19 Vaccine ( season) 2023 Eye requested vera gaffney Care Gap Outreach Action Taken: Outside records requested documented in this encounter Plan of Treatment Upcoming Encounters Date Type Department Care Team ([place] st Contact Info) Description 06/20/2023 10:00 AM EST Laboratory Laboratory, [place] [address] [place], [facility] [address] [place] [address] 06/21/2023 9:30 AM EST Pharmacy Pharmacy, [place] [address] [place] [address] Clinic, [facility] [address] [place] [address] 08/31/2023 8:30 AM EDT Office Visit Nephrology, [facility] [address] [facility] [address] [place] [address] Kamini Hyde PA-C 200 [facility] [place] [address] 12/28/2023 10:00 AM EDT Office Visit Family Practice [facility] [address] [place] [address] Milton Balderas MD [address] [place] [address] 01/30/2024 8:30 AM EDT Office Visit Sleep Disorders Ctr [facility] [address] [phone] Lucila Flanagan CRNP [address] [place] [address] Health Maintenance Due Date Last Done Comments Hepatitis B (1 of 3 - Risk 3-dose series) 1997 Diabetic Eye Exam 12/23/2021 12/23/2020, , 12/19/2019, Additional history exists COVID-19 Vaccine ( season) 2023 03/15/2021, 07/15/2020, 06/17/2020 HbA1c 10/27/2023 04/27/2023, 0305/2022, 03/18/2022, Additional history exists TSH 04/27/2024 04/27/2023, [...] documented as of this encounter Care Teams Veterinarian Laboratory Animal Care Relationship Specialty Start Date End Date Milton Balderas MD [address] [place] [address] PCP - General Family Medicine 10/13/20 documented as of this encounter
--- OUTSIDE RECORDS SUMMARY | 2023-08-13 17:03 | External Medical Summary | Summary of Care ---
Author Name Unknown Organization [facility] Address [address] [place] [address] Phone [phone] Care Team Providers Care Oil Dispenser Name Role Phone Milton Balderas MD Primary Care Provider + Reason for Visit * Reason Comments Return Visit 6 month return Encounter Details Date Type Department Care Team (Latest Contact Info) Description 05/25/2023 9:40 AM EST Office Visit [facility] [address] [facility] [place] [id number] Milton Balderas MD [address] [facility] [place] [id number] Acute diverticulitis*; Risk and functional assessment; DM type 2 nursing care encounter (HCC); Mild dementia without behavioral disturbance, psychotic disturbance, mood disturbance, or anxiety, unspecified dementia type ([facility]); PSVT (paroxysmal supraventricular tachycardia); Stage 3b chronic kidney disease (HCC); 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, macular edema presence unspecified, unspecified retinopathy severity ([facility]); Anemia of chronic renal failure, stage 4 (severe) ; Acquired hypothyroidism; Vitamin D deficiency Allergies Active Allergy Reactions Criticality Noted Date [...] CHEW) 90 Tablet 3 06/20/2022 Active Nystatin 195189 UNIT/GM External Powder (Nystop)Indicatio ns:Tinea corporis Apply [...] MORNING 90 Tablet 3 02/14/2023 Active Procrit 15331 UNIT/ML Injection SolutionIndicatio ns:Anemia of chronic renal [...] PEN WEEKLY 6 mL 1 05/02/2023 Active Cyclobenzaprine HCl 5 MG Oral Tablet (Flexeril) Take 1 Tablet by mouth 2 times a day as needed (Muscle spasm). 12 Tablet 0 11/21/2022 4 Discontinu ed(Medicat ion List Clean Up) documented as of this encounter (statuses as [...] Overview: Found on barium swallow, 01/25/2010 at [facility] on CPAP 11/10/2010 Overview: Sleep study on 12/24/2009, [facility], Cpap 8, flex setting [...] mRNA, LNP-s, No Pre serve, 2-Dose Series (Kwelia) 03/15/2021,07/15/2020,06/17/2020 Pneumococcal Conjugate Vacc, 13 Valent (Prevnar) [...] Sign Reading Time Taken Comments Blood Pressure 118/70 05/25/2023 9:48 AM EST Pulse 56 05/25/2023 9:48 AM EST Temperature - - Respiratory Rate 20 05/25/2023 9:48 AM EST Oxygen Saturation 97% 05/25/2023 9:48 AM EST Inhaled Oxygen Concentration - - Weight 76.8 kg (169 lb 5 oz) 05/25/2023 9:48 AM EST Height - - Body Mass Index 28.18 03/14/2023 8:08 AM EST documented in this encounter Patient Instructions * Patient Instructions* Emily Leos LPN - 05/25/2023 9:46 AM EST Patient Instructions - Fall Prevention (This education is for all patients over 65 regardless of symptoms) Remember to take your current medications as prescribed. In order to prevent falls, you are encouraged to: Exercise Utilize assistive/adaptive devices Avoid multifocal lenses when walking Avoid hazards in home Maintain a regular toileting schedule Any questions please contact our office. Preventing Falls in the Home (This education is for all patients over 65 regardless of symptoms) As you get older, falls are more likely. Thats because your reaction time slows. Your muscles and joints may also get stiffer, making them less flexible. Illness, medications, and vision changes can also affect your balance. A fall could leave you unable to live on your own. To make your home safer, follow these tips: Floors Put nonskid pads under area rugs Remove throw rugs Replace worn floor coverings Tack carpets firmly to each step on carpeted stairs. Put nonskid strips on the edges of uncarpeted stairs Keep floors and stairs free of clutter and cords Arrange furniture so there are clear pathways Clean up any spills right away Bathrooms Install grab bars in the tub or shower Apply nonskid strips or put a nonskid rubber mat in the tub or shower Sit on a bath chair to bathe Use bathmats with nonskid backing Lighting Keep a flashlight in each room Put a nightlight along the pathway between the bedroom and the bathroom [employer] Patient Education Copyright 2008 - 2010 Katina except where otherwise noted Preventing Falls: Exercises to Improve Balance, Flexibility, Strength, and Staying Power (This education is for all patients over 65 regardless of symptoms) Certain types of exercises may help make you less likely to fall. Try the ones below. Or do other exercises that your healthcare provider suggests. Depending on your health, you may need to start slowly. Dont let that stop you. Even small amounts of exercise can help you. Be sure to talk to yourhealthcare provider before starting any exercise program. Improve Balance Many types of exercise can help improve balance. Woo chi and yoga are good examples. Heres another one to try. You can do it anytime and almost anywhere. Stand next to a counter or solid support. Push yourself up onto your tiptoes. Hold for 5 seconds. If you start to lose your balance, hold on to the counter. Rest and repeat 5 times. Work up to holding for 20 to 30 seconds, if you can. Increase Flexibility Being more flexible makes it easier for you to move around safely. Try exercises like the seated hamstring stretch. Sit in a chair and put one foot on a stool. Straighten your leg and reach with both hands down either side of your leg. Reach as far down your leg as you can. Hold for about 20 seconds. Go back to the starting position. Then repeat 5 times. Switch legs. Build Strength Resistance exercises help build strength. You can do them without equipment. Or you can use weights, elastic bands, or special machines. One such exercise is called the biceps curl. You can hold a 1 pound weight or even a can of soup. Do this exercise at least 3 times a week. Strive for everyday. Sit up straight in a chair. Keep your elbow close to your body and your wrist straight. Bend your arm, moving your hand up to your shoulder. Then slowly lower your arm. Repeat 5 times. Switch to the other arm. Build Your Staying Power Aerobic exercises make your heart and lungs stronger so you can keep moving longer. Walking and swimming are two of the best types of exercises you can do. Using a stationary bike is great, too. Find an aerobic exercise that you enjoy. Start slowly and build up. Even 5 minutes is helpful. Aimfor a goal of 30 minutes, at least 3 times a week. You dont have to do 30 minutes in one session. Break it up and walk a little throughout the day. More Helpful Tips Start easy. Slowly work up to doing more. Talk with your healthcare provider about the best exercises for you. Call senior centers or health clubs about exercise programs. If needed, have a family member watch you walk every so often to check your stability. Exercise with a friend. Choose an activity you both enjoy. Try exercises that you can do anytime, anywhere. Here are two examples. Have someone with you when you first try these: Practice walking by placing one foot right in front of the other. Stand up and sit down 10 times. Repeat this throughout the day. [employer]ina Patient Education Copyright 2009 - 2010 Katina except where otherwise noted. Preventing Falls: Moving Safely Using a Cane or Walker (This education is for all patients over 65 regardless of symptoms) Keep the cane away from your feet so you dont trip. A walking aid, such as a cane or walker, can help you stay more independent and avoid falls. Remember to keep your walking aid within easy reach when youre in a chair or in bed. And learn how to use it safely so you dont injure yourself. Using a Cane If you have a stronger side, hold the cane on that side. Get your balance. Move the cane and your weaker leg forward. Support your weight on both the cane and your weaker side. Step with your stronger leg. Start again from step 1. If youre using a folding walker, be sure you know how to lock it open. Check that its locked open before each use. Using a Walker Roll the walker (or lift it, if youre using one without wheels) forward about 12 inches. Step forward with your weaker leg first. Use the walker to help keep your balance. Bring your other foot forward to the center of the walker. Start again from step 1. Helpful Tips Check with your healthcare provider about the right walking aid to use. Ask about a walker with a seat attached. Check the tips of your cane or walker to make sure they have nonskid covers. Move slowly from room to room. Dont prince. Sit down to get dressed. Use a carroll pack or backpack to keep your hands free. Get help for jobs that mean climbing, even on a stepstool. Katina Patient Education Copyright 2008 - 2010 Katina except where otherwise noted. Urinary Incontinence Plan of Care Documentation: (This education is for all patients over 65 regardless of symptoms) Current medications reconciled. Patient encouraged to: Practice kegal exercises Provide education materials Use the restroom every 2 hours throughout the day Limit caffeine, alcohol, spicy foods and acidic foods Keep a bladder diary Limit fluid intake 3-4 hours before bed Lose weight Prevent constipation Take fluid pills at a time when you can get to the bathroom quickly Control sugar better if diabetic Limit fluid intake to 60 oz. per day Wear support stockings (TEDs)if you have edema Emily Leos LPN 05/25/2023 Kegel Exercises Kegel exercises dont require special clothing or equipment. Theyre easy to learn and simple to do. And if you do them right, no one can tell youre doing them, so they can be done almost anywhere. Your doctor, nurse, or physical therapist can answer any questions you have and help you get started. A Weak Pelvic Floor The pelvic floor muscles may weaken due to aging, and vaginal childbirth, injury, surgery, chronic cough, or lack of exercise. If the pelvic floor is weak, your bladder and other pelvic organs may sag out of place. The urethra may also open too easily and allow urine to leak out. Kegel exercises can help you strengthen your pelvic floor muscles so they can better support the pelvic organs and control urine flow. How Kegel Exercises Are Done Try each of the Kegel exercises described below. When youre doing them, try not to move your leg, buttock, or stomach muscles. While youre urinating, try to stop the flow of urine. Start and stop it as often as you can. Contract as if you were stopping your urine stream, but do it when youre not urinating. Tighten your rectum as if trying not to pass gas. Contract your anus, but dont move your buttocks. Helpful Hints Do your Kegels as often as you can. The more you do them, the faster youll feel the results. Pick an activity you do often as a reminder. For instance, do your Kegels every time you sit down. Tighten your pelvic floor before you sneeze, get up from a chair, cough, laugh, or lift. This protects your pelvic floor from injury and can help prevent urine leakage. Try to hold each Kegel for a slow count to five. You probably wont be able to hold them for thatlong at first, but keep practicing. It will get easier as your pelvic floor gets stronger. Eventually, special weights that you place in your vagina may be recommended to help make your Kegels even more effective. Katina Patient Education Copyright 2009 - 2010 Katina except where otherwise noted. Here are some helpful tips for your urinary incontinence: (This education is for all patients over 65 regardless of symptoms) Practice Kegel exercises Use the restroom every 2 hours throughout the day Limit caffeine, alcohol, spicy foods, and acidic foods Keep a bladder diary Limit fluid intake 3-4 hours before bed Lose weight Prevent constipation Take fluid pills at a time when can get to the bathroom quickly Control sugar better if diabetic Limit fluid intake to 60 oz. per day Any questions, please feel free to contact our office. Diabetes: Keeping Feet Healthy Inspect your feet every day for signs of a problem. Diabetes can damage nerves in your feet and cause neuropathy. This condition makes it hard for you to feel injuries or sore spots. Diabetes can also change blood flow, making it harder for small problems, like a blister, to heal properly. In fact, minor injuries can quickly become serious infections that send you to the hospital. Practice self-care to protect your feet and keep them healthy. Take Special Care Inspect your feet daily for problems such as redness, blisters, cracks, dry skin, or numbness. Use a mirror to see the bottoms of your feet. Or, ask for help. Manage your diabetes. Monitor and control your blood sugar. Take all your medications as prescribed. Avoid walking barefoot, even indoors. Wash your feet with warm water and mild soap. Dry well, especially between toes. Dont treat corns or calluses yourself. Talk to your doctor or winding machine operator (a doctor who specializes in foot care) if you need assistance trimming your toenails. Use moisturizing cream or lotion if you have dry skin, but dont use it between toes. Dont use heating pads on your feet. If you have neuropathy, you could get a burn and not feel it. Stop smoking. Smoking restricts blood flow and can make it harder for wounds to heal. Have Regular Checkups Foot problems can develop quickly. So be sure to follow your healthcare teams schedule for regular checkups. During office visits, take off your shoes and socks as soon as you get in the exam room. Ask your healthcare provider to examine your feet for problems. This will make it easier to find and treat small skin irritations before they get worse. Regular checkups can also help keep track of the blood flow and feeling in your feet. If you have neuropathy, you may need to have checkups more often. Wear Proper Footwear Wearing proper footwear is very important. If areas of your feet have been damaged by too much pressure, your healthcare provider may recommend changing your footwear. In some cases, avoiding high heels or tight work boots may be all thats needed. Or, your healthcare provider may recommend special shoes or custom inserts. These help protect your feet and keep existing irritations from getting worse. If you need special footwear, ask your healthcare provider if you qualify for [facility] diabetic shoe program. Make Sure Shoes and Socks Fit Any pair of shoes--new or old--should feel comfortable as soon as you put them on. There shouldnt be any rubbing when you walk. Wear the right shoe for any activity. For instance, a running shoe is designed to keep your feet injury-free while jogging. Buy shoes at the end of the day, when your feet are larger. Make sure they provide support without feeling too loose. Make sure your socks fit, t oo. Wear soft, seamless, well-padded socks for activity. Cotton or microfiber socks are best to help to absorb sweat. To protect your feet, avoid shoes that are open-toed or open-heeled. If you have questions about what kinds of shoes and socks are best, talk to your healthcare team. Get Regular Exercise Regular exercise improves blood flow in your feet. It also increases foot strength and flexibility.Gentle exercises, like walking or riding a stationary bicycle, are best. You can also do special foot exercises. Just be sure to talk with your healthcare provider before starting any exercise program. Also mention if any exercise causes pain, redness, or other signs of foot problems. Note: If you have any kind of break in the skin of your foot or ankle, keep the area clean. Then call your doctor--especially if the area doesnt appear to be healing. [phone] [employer], [address] [place] [address], [place] [address]. All rights reserved. This information is not intended as a substitute for professional medical care. Always follow your healthcare professional's instructions. documented in this encounter Progress Notes * Milton Balderas MD - 05/25/2023 10:23 AM EST SUBJECTIVE: Ekta Francisco is a 87 year old female here for Return Visit (6 month return) . Here for f/u with . Patient went to the emergency room with complaint of left lower quadrantpain and nausea with vomiting. She had labs at looked stable and CT abdomen that showed acute diverticulitis. She was given a prescription for antibiotics but she threw up the pelvis she was given int hospital after discharge from the emergency room, so decided that she should not take her antibiotics. At any rate in the last 3 days her pain has completely resolved. No fever no chills she feels back to normal. She went out to eat yesterday at the restaurant and has felt fine. She is passing bowel movements normally. She has had diverticulitis at least a couple times in the past. They are going to [place] for 2 weeks and are looking forward to that trip. Otherwise doing quite well. dementia is stable. Has very poor memory. coordinates her dailycare. No fever, chills, chest pain, shortness of breath, headache, nausea, vomit, diarrhea, constipation or vision changes Apprec Nephro consult ROS: Negative except above. Past Medical History: Diagnosis Date GERD (gastroesophageal reflux disease) severe on 2011 swallow study History of 2019 novel coronavirus disease (COVID-19) 05/24/202105/29 vaccinated. HTN, goal to be determined Hypothyroidism Mixed dyslipidemia Pernicious anemia Sleep apnea, obstructive Type 2 diabetes mellitus with hemoglobin A1c goal of less than 8.0% ([facility]) 09/29/2017 Past Surgical History: Procedure Laterality Date ARTHROPLASTY KNEE TOTAL Left 08/16/2016 ARTHROPLASTY KNEE TOTAL Right 03/02/2017 Knee replacement COLONOSCOPY THRU STOMA, W/BIOPSY 06/2006 path-normal COLONOSCOPY, DIAGNOSTIC (RECTUM) 06/26/2014 normal bx, diverticulosis, lipoma/COLONOSCOPY FLEXIBLE PROXIMAL DIAGNOSTIC performed by Gómez Ramirez MD at ENDOSCOPY [facility] COLONOSCOPY, DIAGNOSTIC (RECTUM) 05/05/2020 normal / COLONOSCOPY FLEXIBLE PROXIMAL DIAGNOSTIC performed by Kale Johns MD at ENDOSCOPY [facility] COLONOSCOPY, DIAGNOSTIC (RECTUM) 02/01/2023 COLONOSCOPY FLEXIBLE PROXIMAL DIAGNOSTIC performed by Irena Acosta DO at ENDOSCOPY [facility] DILATION AND CURETTAGE (D&C) 09/06/1999 EGD, FLEXIBLE, DIAGNOSTIC 02/15/2012 UPPER GI ENDOSCOPY DIAGNOSTIC performed by Gómez Ramirez MD at ENDOSCOPY [facility] no h-pylori or barretts changes EGD, FLEXIBLE, W/BIOPSY 07/27/2006 path-normal REMOVAL OF APPENDIX REMOVE GALLBLADDER 1996 Social History Socioeconomic History Marital status: Spouse name: Not on file Number of children: Not on file Years of education: Not on file Highest education level: Not on file Occupational History 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 1st , 4kids, 6 grand.. husb w/2 kids (not in touch). Other Topics Concern Not on file Social History Narrative Likes--travel, beaches. Social Determinants of Health Financial Resource Strain: Not on file Food Insecurity: No Food Insecurity (05/25/2023) Hunger Vital Sign Worried About Running Out of Food in the Last Year: Never true Ran Out of Food in the Last Year: Never true Transportation Needs: Not on file Physical Activity: Not on file Stress: Not on file Social Connections: Not on file Intimate Partner Violence: Not on file Housing Stability: Not on file Family History Problem Relation Age of Onset Alzheimer's disease Mother 80 Cancer Father pancreatic Breast Cancer Sister 62 Cancer Brother throat Alzheimer's disease Brother 76 reitred prof Cancer Daughter cervical Current Outpatient Medications Medication Sig Dispense Refill ASPIRIN 81 MG PO TABS Take by mouth daily. Indications: takes at night 0 BD PEN NEEDLE SHORT U/F 31G X 8 MM USE WITH INSULIN UP TO 4 TIMES DAILY FOR DIABETES 1 Box Dosing Unit 11 nitroglycerin (NITROSTAT) 0.[address] 1 Tablet under the tongue every 5 minutes as needed. Probiotic Product (PROBIOTIC DAILY) Capsule Take 1 Cap by mouth daily. Biotin 1 MG Capsule Take 1 Capsule by mouth in the morning and 1 Capsule at noon and 1 Capsule before bedtime. OneTouch Delica Lancets 30G USE TO CHECK GLUCOSE UP TO 4 TIMES DAILY 400 Each 3 Metamucil 0.36 GM Oral Capsule (Psyllium) Take by mouth every other day . OneTouch Verio In Vitro Strip (Glucose Blood) Use to test blood sugar 2 times a day. DX E11.9 200 Strip 3 Oxybutynin Chloride ER 5 MG Oral Tablet Extended Release 24 Hour (Ditropan XL) TAKE 1 TABLET DAILY (DO NOT CUT, CRUSH OR CHEW) 90 Tablet 3 Nystatin 302786 UNIT/GM External Powder (Nystop) Apply topically to affected area 3 times a day. Apply to under breasts and belly 60 g 1 Losartan Potassium 25 MG Oral Tablet (Cozaar) TAKE 1 TABLET DAILY AT LUNCH 90 Tablet 3 Boost Oral Liquid Take by mouth daily. Vitamin D3 25 MCG (1000 UT) Oral Tablet (Vitamin D3) Take 1 Tablet by mouth in the morning. Veltassa 8.4 GM Oral Packet (Patiromer Sorbitex Calcium) take 1 packet every other day 30 Each 3 CPAP every night at bedtime. Levothyroxine Sodium 75 MCG Oral Tablet (Levoxyl) TAKE 1 TABLET DAILY FIRST THING IN THE MORNING 90Tablet 3 Procrit 36428 UNIT/ML Injection Solution Inject 10,000 units subcutaneous every 4 weeks, 84-day supply. 3 mL 3 BD TB Syringe 27G X 1/2" 1 ML (Tuberculin Syringe) Use to inject Procrit monthly or as directed 3 Each 1 Fluticasone Propionate 50 MCG/ACT Nasal Suspension (Flonase) Administer 2 Sprays into each nostril in the morning. 16 g 1 Ferrous Sulfate 325 (65 Fe) MG Oral Tablet (Feosol) Take 1 Tablet by mouth daily. 90 Tablet 1 Trulicity 0.75 MG/0.5ML Subcutaneous Solution Pen-injector (Dulaglutide) INJECT 1 PEN WEEKLY 6 mL 1 FreeStyle Lancets USE TO TEST BLOOD SUGAR 2 TIMES A DAY Dx: E11.9 200 Each 3 No current facility-administered medications for this visit. Physical: BP 118/70 | Pulse 56 | Resp 20 | Wt 76.8 kg (169 lb 5 oz) | SpO2 97% | BMI 28.18 kg/m | BSA 1.88m General-No apparent Distress Head, Eyes, Ears, Nose, Throat--Normocephalic, atraumatic Neck-Supple Lymph-no lymphadenopathy Lungs-Clear to Auscultation bilaterally Cardiovascular--Regular rate & Rhythm, +s1, s2, no murmur Abdomen-soft, nontender, nondistended + bowel sounds Extremities--no edema Neuro-alert & oriented x3 (K57.92) Acute diverticulitis (primary encounter diagnosis) Plan: resolved. In future, rec liquid diet, if needs abx, can give zofran prn (Z13.9) Risk and functional assessment Plan: (E11.9) DM type 2 nursing care encounter (HCC) Plan: DIABETES FOOT EXAM Labs reviewed/ordered (F03.A0) Mild dementia without behavioral disturbance, psychotic disturbance, mood disturbance, or anxiety, unspecified dementia type (HCC) Plan: stable. (I47.10) PSVT (paroxysmal supraventricular tachycardia) Plan: cont med mgmt (N18.32) Stage 3b chronic kidney disease (HCC) Plan: cont mgmt f/u nephro (E11.319) 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, macular edema presence unspecified, unspecified retinopathy severity (HCC) Plan: BASIC METABOLIC PANEL As above (N18.4, D63.1) Anemia of chronic renal failure, stage 4 (severe) Plan: f/u nephro (E03.9) Acquired hypothyroidism Plan: TSH WITH FREE T4 IF INDICATED Cont mgt (E55.9) Vitamin D deficiency Plan: 25-HYDROXY VITAMIN D (This note was completed using the dictation program Fluency Direct. As such, there may be misspellings, word substitutions, or other variations that should not change the essence of the clinical content of this encounter note.If there is need for further clarification, please direct questions to the provider listed above.) Milton Baldears MD * Emily Leos LPN - 05/25/2023 9:52 AM EST DM Foot Exam completed today. Provider aware. Emily Leos LPN Socks and Shoes Removed for Annual Diabetic Foot Screening RIGHT FOOT: Area of Concern: Dry skin on heels-uses lotions . RIGHT Dorsalis Pedis Pulse: Palpable RIGHT Posterior Tibial Pulse: Palpable RIGHT Monofilament:Patient reports feeling monofilament pressure on plantar surface of foot LEFT FOOT: Area of Concern Dry skin on heels-uses lotions LEFT Dorsalis Pedis Pulse: Palpable LEFT Posterior Tibial Pulse: Palpable LEFT Monofilament:Patient reports feeling monofilament pressure on plantar surface of foot Do you need diabetic shoes: No documented in this encounter Nursing Notes * Emily Leos LPN - 05/25/2023 9:48 AM EST The patient has been properly identified by confirmation of name and date of . Chief Complaint Patient presents with Return Visit 6 month return documented in this encounter Plan of Treatment Upcoming Encounters Date Type Department Care Team (Late st Contact Info) Description 06/20/2023 10:00 AM EST Laboratory Laboratory, [place] [address] [place] [id number] [place] [address] [place] [address] 06/21/2023 9:30 AM EST Pharmacy Pharmacy, [address] [address] Clinic, [address] [address] 08/31/2023 8:30 AM EDT Office Visit Nephrology, [facility] [address] [place] [address] ZemaitisKamini PA-C [address] [place] [address] 12/28/2023 10:00 AM EDT Office Visit Family Practice [facility] [address] [address] Milton Balderas MD [address] [address] 01/30/2024 8:30 AM EDT [facility] [address] [place] [phone] Lucila Flanagan CRNP [address] [place] [address] Scheduled Orders Name Type Priority Associated Diagnoses Orde r Schedule BASIC METABOLIC PANEL Lab Routine 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, macular edema presence unspecified, unspecified retinopathy severity (HCC) Expected: 11/15/2023 (Approximate), Expires: 05/24/2024 TSH WITH FREE T4 IF INDICATED Lab Routine Acquired hypothyroidism Expected: 11/15/2023 (Approximate), Expires: 05/24/2024 25-HYDROXY VITAMIN D Lab Routine Vitamin D deficiency Expected: 11/15/2023 (Approximate), Expires: 05/24/2024 Health Maintenance Due Date Last Done Comments [...] as of this encounter Visit Diagnoses Diagnosis Acute diverticulitis- Primary Diverticulitis of colon (without mention of hemorrhage) Risk and functional assessment Screening for unspecified condition DM type 2 nursing care encounter (HCC) Type II or unspecified type diabetes mellitus without mention of complication, not stated as uncontrolled Mild dementia without behavioral disturbance, psychotic disturbance, mood disturbance, or anxiety, unspecified dementia type (HCC) PSVT (paroxysmal supraventricular tachycardia) Paroxysmal supraventricular tachycardia Stage 3b chronic kidney disease (HCC) 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
--- NOTE | 2023-08-13 17:13 | Emergency Department Note ---
Impression & Plan Chest pain, Elevated troponin, Generalized weakness, Hypomagnesemia ED Provider Note Name: KELLI ALBRIGHT Age: 88 Sex: Female Arrives Via: Walk-In Informant: Patient & ED Provider: Patrick Lees MD Chief Complaint: Chest pain Impression: As per impressions above Medical Decision Makin-year-old female arrives for evaluation of episodic chest pain over the last few days. Associated with some weakness and fatigue along with several other nonspecific complaints. No specific history of cardiac disease though does have hypertension, dyslipidemia, diabetes. EKG is unchanged from previous. Laboratory workup does reveal mild elevation of troponin. Nonspecific and could just be some dehydration. That said with recent chest pain she was given some aspirin. Patient also noted to be moderately hypomagnesemic. This could be due to her weakness. notes she really has not been eating well recently either. IV mag given. Hospitalist consulted for further management. Of note I did get a CT of the head given the weakness and vague headaches. Fortunately this is unremarkable. I would hold off on further anticoagulation until further workup and evaluation is obtained. Patient was quite hypertensive on arrival. She was given 5 mg IV labetalol and blood pressure did start coming down nicely. It could be that she is having hypertensive emergency causing these symptoms though will defer to further workup. No evidence of infectious etiology at this time. Triage/Nursing Notes reviewed by Me Differential:Cardiac ischemia, aortic dissection, pulmonary embolism, pneumothorax, pneumonia, pericarditis, myocarditis, esophageal rupture, GERD, cholecystitis, pancreatitis, musculoskeletal, as well as other pathologies. Vital Signs: reviewed and remarkable for significantly hypertensive Interventions: Labetalol 5 mg IV, magnesium 1 g IV, aspirin 324 mg p.o. Labs:ED labs Reviewed by me and remarkable for elevated troponin mildly, mild increase in creatinine, low magnesium Imaging:CT of the head without contrast as per my informal interpretation reveals no intracranial hemorrhage or mass effect. 1 view chest x-ray as per my interpretation no infiltrate, effusion or significantly enlarged cardiac border. EKG:As per my interpretation. Indication chest pain. Normal sinus rhythm at 70 bpm without ectopy nor ischemia. Nonspecific lateral and anterior T wave inversions. These are similar to EKG from September 29, 2022. There is no STEMI appreciated. Cardiac/Tele Monitoring: Cardiac Monitoring: An Order was placed for continuous cardiac monitoring. The monitor shows a rate of 70 with a normal sinus rhythm. Consults:Dr Renetta Combs Hospitalist Plan: Disposition:Hospitalization. Condition: Good History of Present Illness: 88-year-old female arrives for evaluation of chest pain. Patient with on and off episodes of chest pain over the last few days. Substernal in nature when it occurs. Tight. Associated with several days of fatigue, weakness, mild headaches, lack of appetite and generalized exhaustion. Notes symptoms are all worse when she exerts herself. Denies any falls, trauma, injuries. Denies any neurodeficits. She is not having any difficulty breathing, fevers, abdominal pain, vomiting, diarrhea, leg swelling or other concerning signs or symptoms. No medications prior to arrival. Patient denies any previous history of cardiac disease. Past Medical History:Hypertension, anemia, dyslipidemia, type 2 diabetes, GERD, hypothyroidism, sleep apnea Home Medications:See Below Allergies:Cipro, BENEDICT, metformin Vitals:Blood Pressure: 205/87, Pulse 78, RR 18, T 36.5C, O2 95% on RA Physical Exam: GENERAL: Patient is mildly anxious appearing and in minimal distress. RESPIRATORY: No dyspnea. Clear to auscultation and equal bilaterally. CARDIOVASCULAR: Regular rate and rhythm.Slight systolic murmur appreciated. GASTROINTESTINAL: Abdomen soft, non-tender, no peritonitis. BACK: No midline tenderness, no CVA tenderness EXTREMITIES: Normal motion all extremities, no cyanosis, no edema. NEUROLOGIC: NIH 0. Alert and oriented. No focal neurologic deficits appreciated SKIN: No rash, no jaundice, no diaphoresis. PSYCH: Appropriate GCS: 15 ED Course: Times/Reassessments: Patient stable throughout. No further symptoms. Agreeable to hospitalization. Patrick Lees MD Past Med/Surg History Medical History Hypertensive urgency Chronic anemia IgM lambda paraproteinemia HTN (hypertension) Anemia due to chronic kidney disease DM type 2 (diabetes mellitus, type 2) DORIS on CPAP Dyslipidemia CKD (chronic kidney disease), stage III GERD (gastroesophageal reflux disease) Hypothyroidism Pernicious anemia Surgical History History of gynecologic surgery anterior colporrhaphy History of hysteroscopy Status post tubal ligation History of total bilateral knee replacement (TKR) History of knee surgery History of appendectomy History of dilation and curettage S/P cholecystectomy Family History Mother , 85 Heart disease Diabetes Father , 65 Pancreatic cancer Sister Uterine cancer Breast cancer Denies family history of Ovarian cancer Colorectal cancer Social History Smoking Status: Former smoker Tobacco Type: Cigarettes Second Hand Exposure: No; Do You Dip or Chew Tobacco: No; Hx Alcohol Use: No Hx Substance Use: No Preferred Language: Swiss Communication Ability: Effective Air Bag Stripper Required: No Beliefs That Will Affect Care: None marital status: Current Living Situation: Spouse Current Living Situation Comment: at home current occupational status: retired Feels Safe at Home: Yes Safety Concerns: Feels Safe At This Time Assistive Devices: CPAP Allergies Allergies Allergy/AdvReac Type Severity Reaction Status Date / Time ciprofloxacin Allergy Intermediate RASH Verified 08/13/23 18:03 BENEDICT Inhibitors AdvReac Intermediate COUGH Verified 08/13/23 18:03 metformin AdvReac Intermediate GI SYMPTOMS Verified 08/13/23 18:03 Home Meds Home Medications Medication Instructions Recorded Confirmed levothyroxine 75 mcg tablet 75 mcg PO QAM 06/11/18 08/13/23 aspirin 81 mg tablet,delayed 81 mg PO HS 03/27/19 08/13/23 release dulaglutide 0.75 mg/0.5 mL 0.75 mg subcut WK 03/27/19 08/13/23 subcutaneous pen injector (Trulicity) epoetin lou 10,000 unit/mL 10,000 unit subcut MONTHLY PRN 03/27/19 08/13/23 injection solution (Procrit) WHEN NEEDED oxybutynin chloride 5 mg 5 mg PO HS 03/27/19 08/13/23 tablet,extended release 24 hr losartan 25 mg tablet 25 mg PO QDL 05/05/21 08/13/23 biotin 1 mg capsule 1 mg PO DAILY 05/26/22 08/13/23 nitroglycerin 0.6 mg sublingual 0.6 mg sublingual DIRECTED PRN 05/26/22 08/13/23 tablet (Nitrostat) Chest Pain patiromer calcium sorbitex 8.4 8.4 g PO Q OTHER DAY 05/26/22 08/13/23 gram oral powder packet (Veltassa) cholecalciferol (vitamin D3) 25 25 mcg PO DAILY 05/22/23 08/13/23 mcg (1,000 unit) tablet (Vitamin D3) ferrous sulfate 325 mg (65 mg 325 mg PO DAILY 05/22/23 08/13/23 iron) tablet (FeroSul) fluticasone propionate 50 2 spray intranasal DAILY PRN Nasal 05/22/23 08/13/23 mcg/actuation nasal Congestion spray,suspension food supplemt, lactose-reduced 1 ea PO DAILY 05/22/23 08/13/23 nystatin 100,000 unit/gram topical 1 applic topical TID PRN irritation 05/22/23 08/13/23 powder (Nyamyc) Saccharomyces boulardii 250 mg 250 mg PO DAILY 08/13/23 08/13/23 capsule (Florastor) psyllium husk 0.4 gram capsule 0.4 g PO Q OTHER DAY 08/13/23 08/13/23 (Metamucil) Results & Data (ED) Vital Signs Vital Signs - 24 hr 08/13/23 16:59 08/13/23 17:10 08/13/23 17:16 Temperature 36.5 C Temperature Source Temporal Artery Scan Pulse Rate 78 70 Pulse Rate [Apical] Pulse Rate from SpO2 Sensor 74 Pulse Rhythm [Apical] Pulse Strength [Apical] Respiratory Rate 18 16 Respiratory Effort / Characteristics Non-Labored Spontaneous Non-Labored Spontaneous Respiratory Depth Normal Normal Blood Pressure 205/87 H Blood Pressure [Right Arm] Blood Pressure Mean 126 Blood Pressure Mean [Right Arm] Blood Pressure Position Sitting Pulse Oximetry 95 96 Oxygen Delivery Method Room Air Room Air Sepsis Recent Fever Within 48 Hours No Sepsis New/Unexplained Change in Mental Status N/A Sepsis Action Taken by Nursing No Action Required 08/13/23 17:16 08/13/23 17:16 08/13/23 17:16 Temperature Temperature Source Pulse Rate Pulse Rate [Apical] 66 Pulse Rate from SpO2 Sensor Pulse Rhythm [Apical] Regular Pulse Strength [Apical] Normal Respiratory Rate 20 Respiratory Effort / Characteristics Non-Labored Spontaneous Respiratory Depth Normal Blood Pressure 185/81 H Blood Pressure [Right Arm] 185/81 H Blood Pressure Mean 110 Blood Pressure Mean [Right Arm] 115 Blood Pressure Position Pulse Oximetry 95 95 Oxygen Delivery Method Room Air Room Air Sepsis Recent Fever Within 48 Hours Sepsis New/Unexplained Change in Mental Status Sepsis Action Taken by Nursing 08/13/23 17:16 08/13/23 17:19 08/13/23 17:20 Temperature Temperature Source Pulse Rate 66 66 66 Pulse Rate [Apical] Pulse Rate from SpO2 Sensor 67 64 Pulse Rhythm [Apical] Pulse Strength [Apical] Respiratory Rate 27 H 26 H Respiratory Effort / Characteristics Respiratory Depth Blood Pressure 185/81 H 166/91 H Blood Pressure [Right Arm] Blood Pressure Mean 116 Blood Pressure Mean [Right Arm] Blood Pressure Position Pulse Oximetry 93 95 Oxygen Delivery Method Sepsis Recent Fever Within 48 Hours Sepsis New/Unexplained Change in Mental Status Sepsis Action Taken by Nursing 08/13/23 17:21 08/13/23 17:21 08/13/23 17:23 Temperature Temperature Source Pulse Rate 69 72 Pulse Rate [Apical] Pulse Rate from SpO2 Sensor 69 Pulse Rhythm [Apical] Pulse Strength [Apical] Respiratory Rate 25 H Respiratory Effort / Characteristics Respiratory Depth Blood Pressure 166/91 H Blood Pressure [Right Arm] Blood Pressure Mean 132 Blood Pressure Mean [Right Arm] Blood Pressure Position Pulse Oximetry 96 Oxygen Delivery Method Sepsis Recent Fever Within 48 Hours Sepsis New/Unexplained Change in Mental Status Sepsis Action Taken by Nursing 08/13/23 17:30 08/13/23 17:30 08/13/23 17:38 Temperature Temperature Source Pulse Rate 64 68 Pulse Rate [Apical] Pulse Rate from SpO2 Sensor 65 Pulse Rhythm [Apical] Pulse Strength [Apical] Respiratory Rate 16 Respiratory Effort / Characteristics Respiratory Depth Blood Pressure 160/76 H 168/73 H Blood Pressure [Right Arm] Blood Pressure Mean 121 Blood Pressure Mean [Right Arm] Blood Pressure Position Pulse Oximetry 94 Oxygen Delivery Method Sepsis Recent Fever Within 48 Hours Sepsis New/Unexplained Change in Mental Status Sepsis Action Taken by Nursing 08/13/23 17:39 08/13/23 17:39 08/13/23 17:40 Temperature Temperature Source Pulse Rate 70 64 Pulse Rate [Apical] Pulse Rate from SpO2 Sensor 69 64 Pulse Rhythm [Apical] Pulse Strength [Apical] Respiratory Rate 22 21 Respiratory Effort / Characteristics Respiratory Depth Blood Pressure 168/73 H Blood Pressure [Right Arm] Blood Pressure Mean 96 Blood Pressure Mean [Right Arm] Blood Pressure Position Pulse Oximetry 92 94 Oxygen Delivery Method Sepsis Recent Fever Within 48 Hours Sepsis New/Unexplained Change in Mental Status Sepsis Action Taken by Nursing 08/13/23 17:45 08/13/23 17:45 08/13/23 17:57 Temperature Temperature Source Pulse Rate 66 68 Pulse Rate [Apical] Pulse Rate from SpO2 Sensor 65 68 Pulse Rhythm [Apical] Pulse Strength [Apical] Respiratory Rate 23 17 Respiratory Effort / Characteristics Respiratory Depth Blood Pressure 177/75 H Blood Pressure [Right Arm] Blood Pressure Mean 90 Blood Pressure Mean [Right Arm] Blood Pressure Position Pulse Oximetry 94 95 Oxygen Delivery Method Sepsis Recent Fever Within 48 Hours Sepsis New/Unexplained Change in Mental Status Sepsis Action Taken by Nursing 08/13/23 18:00 08/13/23 18:07 08/13/23 18:07 Temperature Temperature Source Pulse Rate 64 69 Pulse Rate [Apical] Pulse Rate from SpO2 Sensor 63 66 Pulse Rhythm [Apical] Pulse Strength [Apical] Respiratory Rate 16 23 Respiratory Effort / Characteristics Respiratory Depth Blood Pressure 168/77 H Blood Pressure [Right Arm] Blood Pressure Mean 137 Blood Pressure Mean [Right Arm] Blood Pressure Position Pulse Oximetry 96 95 Oxygen Delivery Method Sepsis Recent Fever Within 48 Hours Sepsis New/Unexplained Change in Mental Status Sepsis Action Taken by Nursing 08/13/23 18:10 08/13/23 18:16 08/13/23 18:16 Temperature Temperature Source Pulse Rate 63 76 Pulse Rate [Apical] Pulse Rate from SpO2 Sensor 64 77 Pulse Rhythm [Apical] Pulse Strength [Apical] Respiratory Rate 22 23 Respiratory Effort / Characteristics Respiratory Depth Blood Pressure 200/94 H Blood Pressure [Right Arm] Blood Pressure Mean 129 Blood Pressure Mean [Right Arm] Blood Pressure Position Pulse Oximetry 95 91 Oxygen Delivery Method Sepsis Recent Fever Within 48 Hours Sepsis New/Unexplained Change in Mental Status Sepsis Action Taken by Nursing 08/13/23 18:20 08/13/23 18:30 08/13/23 18:30 Temperature Temperature Source Pulse Rate 71 75 Pulse Rate [Apical] Pulse Rate from SpO2 Sensor 69 73 Pulse Rhythm [Apical] Pulse Strength [Apical] Respiratory Rate 24 19 Respiratory Effort / Characteristics Respiratory Depth Blood Pressure 184/90 H Blood Pressure [Right Arm] Blood Pressure Mean 123 Blood Pressure Mean [Right Arm] Blood Pressure Position Pulse Oximetry 95 96 Oxygen Delivery Method Sepsis Recent Fever Within 48 Hours Sepsis New/Unexplained Change in Mental Status Sepsis Action Taken by Nursing Laboratory Data 08/14/23 05:17 08/14/23 05:17 Lab Results 08/13/23 08/13/23 Range/Units 17:20 17:21 WBC 9.45 (4.8-10.8) K/ul RBC 3.69 L (4.20-5.40) M/uL Hgb 11.0 L (12.0-16.0) g/dl Hct 33.2 L (37.0-47.0) % MCV 90.0 (80.0-100.0) fL MCH 29.8 (25.0-34.0) pg MCHC 33.1 (32.0-36.0) g/dL RDW Std Deviation 41.5 (36.4-46.3) fL RDW Coeff of Elpidio 12.7 (11.5-14.5) % Plt Count 181 (130-400) K/uL MPV 10.7 (9.4-12.4) fL Immature Gran % (Auto) 0.3 % Neut % (Auto) 61.6 % Lymph % (Auto) 24.8 % Floyd % (Auto) 9.4 % Eos % (Auto) 3.3 % Baso % (Auto) 0.6 % Neut # (Auto) 5.82 (1.40-6.50) K/uL Lymph # (Auto) 2.34 (1.20-3.40) K/uL Floyd # (Auto) 0.89 H (0.11-0.59) K/uL Eos # (Auto) 0.31 (0.00-0.50) K/uL Baso # (Auto) 0.06 (0.00-0.20) K/uL Immature Gran # (Auto) 0.03 (0.01-0.20) K/uL Sodium 140 (136-145) mmol/L Potassium 3.7 (3.5-5.1) mmol/L Chloride 107 (98-107) mmol/L Carbon Dioxide 25 (21-32) mmol/L Anion Gap 8 (3-11) BUN 24 H (6-23) mg/dl Creatinine 1.18 (0.6-1.2) mg/dl Est Cr Clr Drug Dosing 34.1 ml/min Est GFR ( Amer) 48.4 ml/min Est GFR (Non-Af Amer) 41.7 ml/min BUN/Creatinine Ratio 20.3 H (10-20) Glucose 171 H (70-99(Fasting)) mg/dl Calcium 9.2 (8.6-10.3) mg/dl Magnesium 1.2 L (1.7-2.4) mg/dl Total Bilirubin 0.7 (0.2-1.0) mg/dl Direct Bilirubin 0.1 (0-0.2) mg/dl AST 24 (13-39) U/L ALT 29 (7-52) U/L Alkaline Phosphatase 46 (34-104) U/L Troponin I High Sens 27.9 H (0-14) pg/ml Total Protein 6.4 (6.0-8.3) gm/dl Albumin 3.7 (3.4-5.0) gm/dl SARS-CoV-2 (PCR) NEGATIVE (Negative) Influenza Type A (PCR) Negative (Neg) Influenza Type B (PCR) Negative (Neg) RSV (RT-PCR) Negative (Neg) Administered Medications Enoxaparin Sodium (Enoxaparin Inj 40 Mg/0.4 Ml Syr) 40 mg SQ Q24H [facility] Stop: 09/12/23 21:59 Last Admin: 08/13/23 23:17 Dose: 40 mg Documented By: AM Sodium Chloride (Nss) 1,000 mls @ 50 mls/hr IV .Q20H ONE Stop: 08/14/23 23:44 Last Admin: 08/14/23 03:57 Dose: 50 mls/hr Documented By: AM Insulin Aspart (Insulin Aspart Per Unit Charge) 0 units SC Q6 [facility] Stop: 09/13/23 05:59 Last Admin: 08/14/23 06:29 Dose: Not Given Documented By: AM Co-signed By: VK Levothyroxine Sodium (Levothyroxine Sodium 75 Mcg Tablet) 75 mcg PO QAM [facility] Stop: 09/13/23 08:59 Last Admin: 08/14/23 08:26 Dose: 75 mcg Documented By: ALN Losartan Potassium (Losartan Potassium 50 Mg Tab) 100 mg PO QAM [facility] Stop: 09/13/23 03:49 Last Admin: 08/14/23 04:03 Dose: 100 mg Documented By: AM Oxybutynin Chloride (Oxybutynin Chloride Xl 5 Mg Tabcr) 5 mg PO HS [facility] Stop: 09/12/23 20:59 Last Admin: 08/13/23 20:17 Dose: 5 mg Documented By: RATNA Psyllium Hydrophilic Mucilloid (Psyllium Or Guar Gum Fiber 4gm Packet) 2 gm PO Q2D [facility] Stop: 09/12/23 19:14 Last Admin: 08/13/23 20:18 Dose: 2 gm Documented By: RATNA Discontinued Medications Aspirin (Aspirin 81 Mg Chew) 324 mg PO NOW STA Stop: 08/13/23 18:10 Last Admin: 08/13/23 18:14 Dose: 324 mg Documented By: RATNA Hydralazine HCl (Hydralazine Hcl 20 Mg/Ml Vial) 5 mg IV NOW STA Stop: 08/13/23 19:11 Last Admin: 08/13/23 19:15 Dose: 5 mg Documented By: RATNA Magnesium Sulfate/Dextrose (Magnesium Sulfate / D5w) 1 gm in 100 mls @ 100 mls/hr IV NOW STA Stop: 08/13/23 19:08 Last Infusion: 08/13/23 19:14 Dose: Infused Documented By: Admin: 08/13/23 18:14 Dose: 100 mls/hr Documented By: RATNA Magnesium Sulfate/Dextrose (Magnesium Sulfate / D5w) 1 gm in 100 mls @ 50 mls/hr IV Q2H [facility] Stop: 08/13/23 23:14 Last Infusion: 08/14/23 00:12 Dose: Infused Documented By: Admin: 08/13/23 22:08 Dose: 50 mls/hr Documented By: Infusion: 08/13/23 21:54 Dose: Infused Documented By: Admin: 08/13/23 19:18 Dose: 50 mls/hr Documented By: RATNA Sodium Chloride (Nss) 1,000 mls @ 80 mls/hr IV .[id number] [facility] Stop: 09/12/23 21:50 Last Infusion: 08/14/23 03:57 Dose: Infused Documented By: Admin: 08/13/23 22:09 Dose: 80 mls/hr Documented By: AM Magnesium Sulfate/Dextrose (Magnesium Sulfate / D5w) 1 gm in 100 mls @ 50 mls/hr IV ONE ONE Stop: 08/14/23 08:19 Last Infusion: 08/14/23 09:38 Dose: Infused Documented By: Admin: 08/14/23 06:37 Dose: 50 mls/hr Documented By: AM Insulin Aspart (Insulin Aspart Per Unit Charge) 0 units SC ACHS [facility] Stop: 09/12/23 20:59 Last Admin: 08/13/23 20:47 Dose: Not Given Documented By: RATNA Co-signed By: SERA Labetalol HCl (Labetalol Hcl Iv 5 Mg/Ml 20ml) 5 mg IV NOW STA Stop: 08/13/23 17:11 Last Admin: 08/13/23 17:19 Dose: 5 mg Documented By: RATNA Co-signed By: SUJIT Losartan Potassium (Losartan Potassium 50 Mg Tab) 50 mg PO HS [facility] Stop: 09/12/23 20:59 Last Admin: 08/13/23 20:17 Dose: 50 mg Documented By: RATNA Potassium Chloride (Potassium Chloride Crtab 20 Meq Tabcr) 40 meq PO NOW STA Stop: 08/14/23 06:21 Last Admin: 08/14/23 06:34 Dose: 40 meq Documented By: ANNE-MARIE Potassium Chloride (Potassium Chloride Crtab 20 Meq Tabcr) 40 meq PO ONE ONE Stop: 08/14/23 08:31 Last Admin: 08/14/23 08:26 Dose: 40 meq Documented By: MINA Discharge Plan Visit Data Chief Complaint: Chest Pain Stated Complaint: CHEST PAIN ED Provider: Patrick Lees Discharge Problem: Chest pain, Elevated troponin, Generalized weakness, Hypomagnesemia Patient Disposition: Admitted As Inpatient Discharge Instructions Interventions: ED Discharge Assessment Last Done: 08/13/23 20:52 Discharge Problem: Chest pain Qualifiers: Chest pain type: unspecified Qualified Code(s): R07.9 - Chest pain, unspecified
[2023-08-13] MEDS: LABETALOL HCL IV 5 MG/ML 20ML IV STA (17:19)
[2023-08-13 17:36] LABS: Basophils # (auto) 0.06 K/uL (0.00-0.20); Basophils % (auto) 0.6 %; Eosinophils # (auto) 0.31 K/uL (0.00-0.50); Eosinophils % (auto) 3.3 %; Hematocrit (blood only) 33.2 % (37.0-47.0); Immature Granulocytes # (auto) 0.03 K/uL (0.01-0.20); Immature Granulocytes % (auto) 0.3 %; Lymphocytes # (auto) 2.34 K/uL (1.20-3.40); Lymphocytes % (auto) 24.8 %; Mean Corpuscular Hemoglobin 29.8 pg (25.0-34.0); Mean Corpuscular Hgb Conc 33.1 g/dL (32.0-36.0); Mean Platelet Volume 10.7 fL (9.4-12.4); Monocytes # (auto) 0.89 K/uL (0.11-0.59); Monocytes % (auto) 9.4 %; Neutrophils # (auto) 5.82 K/uL (1.40-6.50); Neutrophils % (auto) 61.6 %; Platelet Count 181 K/uL (130-400); RDW Coefficient of Variation 12.7 % (11.5-14.5); RDW Standard Deviation 41.5 fL (36.4-46.3); Red Blood Count 3.69 M/uL (4.20-5.40); White Blood Count 9.45 K/ul (4.8-10.8)
[2023-08-13 17:54] LABS: Albumin Level 3.7 gm/dl (3.4-5.0); BUN Creatinine Ratio 20.3 (10-20); Bilirubin Direct 0.1 mg/dl (0-0.2); Bilirubin,Total 0.7 mg/dl (0.2-1.0); Calcium 9.2 mg/dl (8.6-10.3); Creatinine Clr Calc Pharmacy 34.1 ml/min; Est GFR (African American) 48.4 ml/min; Est GFR (Non-African American) 41.7 ml/min; Magnesium 1.2 mg/dl (1.7-2.4); Potassium 3.7 mmol/L (3.5-5.1); Total Protein 6.4 gm/dl (6.0-8.3)
[2023-08-13 18:03] LABS: Troponin I High Sensitivity 27.9 pg/ml (0-14)
--- NOTE | 2023-08-13 18:03 | CT Scan Report ---
CT head/brain wo con CLINICAL HISTORY: hypertension, weakness Technique: Contiguous axial CT images of the head were acquired from the base of the skull to the lexus janna without intravenous contrast administration. Images were viewed in brain, subdural and [facility]. Automated dose lowering techniques and/or adjustment according to patient size were utilized for this exam. Comparison: Comparison is made to CT head 10/19/2015 Findings: Areas of decreased attenuation are present in the periventricular and subcortical white matter bilate rally consistent with small vessel ischemic disease. Generalized cerebral atrophy with commensurate e nlargement of the ventricles, sulci, and cisterns is also present. There is no acute intracranial hem orrhage or evidence of acute territorial infarction. No shift of the midline structures, mass effect, or extra-axial abnormalities are shown. Atherosclerotic calcifications are present in the intracran ial segments of the internal carotid arteries. Imaged portions of the paranasal sinuses and mastoid air cells are clear. The orbits appear normal. There are no acute fractures of the calvaria or scalp swelling. Impression: No acute intracranial hemorrhage, no evidence of acute territorial infarction or other acute intracra nial disease process. ACT 112: Negative or not required by law. Electronically signed by: Ludwig Beevrly M.D. 08/13/2023 6:01 PM
[2023-08-13 18:07] LABS: Influenza A virus by PCR Negative (Neg); Influenza B virus by PCR Negative (Neg); RSV by PCR Negative (Neg); SARS CoV2 RNA(COVID-19) Ceph NEGATIVE (Negative)
[2023-08-13] MEDS: MAGNESIUM SULFATE / D5W 1 GM/100 ML BAG IV STA (18:14)
[2023-08-13] MEDS: ASPIRIN 81 MG CHEW PO STA (18:14)
--- NOTE | 2023-08-13 18:14 | XRay Report ---
XR chest 1V portable CLINICAL HISTORY: chest pain TECHNIQUE: Single frontal radiograph of the chest was obtained. Comparison: Comparison is made to chest radiograph 09/29/2022 FINDINGS: No lines and tubes are seen. Cardiomegaly is noted. The lungs are clear. No evidence of pleural effus ion or pneumothorax. IMPRESSION: No acute chest disease. ACT 112: Negative or not required by law. Electronically signed by: Ludwig Beverly M.D. 08/13/2023 6:12 PM
[2023-08-13] MEDS: hydrALAZINE HCL 20 MG/ML VIAL IV STA (19:15)
[2023-08-13] MEDS: MAGNESIUM SULFATE / D5W 1 GM/100 ML BAG IV SCH (19:18)
[2023-08-13 20:05] LABS: Appearance Urine Clear (Clear); Bacteria Urine Automated Negative (Negative); Bilirubin Urine Negative (Negative); Blood Urine Negative (Negative); Color Urine Yellow; Epithelial Cell Urine Auto >30 /lpf (0-5); Glucose Urine UA Negative (Negative); Ketones Urine Negative (Negative); Leukocyte Esterase Urine 1+ (Negative); Nitrite Urine Negative (Negative); Protein Urine 2+ (Negative); RBC Urine Automated 0-4 /hpf (0-4); Urobilinogen Urine Negative (Negative)
[2023-08-13] MEDS ORDERED: DEXTROSE 50% 50 ML SYRINGE IV PRN (20:14)
[2023-08-13] MEDS ORDERED: GLUCAGON FOR INJ 1 MG VIAL SQ PRN (20:14)
[2023-08-13] MEDS ORDERED: GLUCOSE 10 TAB/TUBE PO PRN (20:14)
[2023-08-13] MEDS ORDERED: GLUCOSE 40% GEL 15 GM TUBE PO PRN (20:14)
[2023-08-13] MEDS ORDERED: CARBOHYDRATES FOR HYPOGLYCEMIA PO PRN (20:14)
--- NOTE | 2023-08-13 20:16 | History & Physical Report ---
Date of Service August 13, 2023 Assessment & Plan (1) Chest pain: (2) Elevated troponin: (3) Hypomagnesemia: (4) Hypertensive urgency: (5) DORIS on CPAP: (6) Hypothyroidism: (7) DM type 2 (diabetes mellitus, type 2): (8) Generalized weakness: (9) Decreased appetite: Plan 88 year old female with HTN, DM, CKD, DORIS, hypothyroid who presented to the ED with CP, generalized weakness and decreased appetite Chest pain- details above, intermittent for past 3 days, currently chest pain free. Given full dose aspirin in ED. Trop mildly elevated, could be from HTNsive urgency. EKG changes as before. Had echo and stress test 1 year back which was normal and was evaluated by cardio. Will trend trop, tele. If dynamic EKG changes or increasing trop, consider cardio eval otherwise consider ordering stress test in am. Will keep npo overnight. Continue ASA, BB not started due to low HR. Hypertensive urgency- States she is not taking any BP meds currently. Will start on losartan at 50 mg hs. Will have HLZ prn with hold parameters DM-2- takes trulicity weekly. Will have SSI prn Generalized weakness- PT OT eval Decreased appetite- consider remeron at discharge or as OP. Continue boost Hypothyroid- on synthroid DORIS on CPAP- doesn't know the setting. Ordered CPAP per protocol DVT ppx- sc lovenox Dispo- PCU on tele Updated at bedside Full code Time spent- approx 85 mins History of Present Illness Chief Complaint: CP, generalized weakness, decreased appetite Primary Care Provider: Milton Balderas MD 88 year old female with h/o HTN, DM, CKD, HLD, DORIS, hypothyroidism who presented to the ED with intermittent CP, generalized weakness and decreased appetite. States decreased appetite for many month now and has generalized weakness, however over the past 3 days she was having intermittent midsternal chest pain without any radiation, not exertional, no known provoking or relieving factors, no other associated symptoms. Describes as dull pressure. Denies any heart burn symptoms. No fever, chills, N/V, SOB. States she has not felt the same after she had Flu Feb last year. In the ED, she was hypertensive but otherwise vitals stable. She had mild elevation in troponin and hypomagnesemia. Hospitalist service consulted for further management. at bedside. Allergies Allergy/AdvReac Type Severity Reaction Status Date / Time ciprofloxacin Allergy Intermediate RASH Verified 08/13/23 18:03 BENEDICT Inhibitors AdvReac Intermediate COUGH Verified 08/13/23 18:03 metformin AdvReac Intermediate GI SYMPTOMS Verified 08/13/23 18:03 Home Medications Medication Instructions Recorded Confirmed Type levothyroxine 75 mcg tablet 75 mcg PO QAM 06/11/18 08/13/23 History aspirin 81 mg tablet,delayed 81 mg PO HS 03/27/19 08/13/23 History release dulaglutide 0.75 mg/0.5 mL 0.75 mg subcut WK 03/27/19 08/13/23 History subcutaneous pen injector (Trulicity) epoetin lou 10,000 unit/mL 10,000 unit subcut MONTHLY PRN 03/27/19 08/13/23 History injection solution (Procrit) WHEN NEEDED oxybutynin chloride 5 mg 5 mg PO HS 03/27/19 08/13/23 History tablet,extended release 24 hr losartan 25 mg tablet 25 mg PO QDL 05/05/21 08/13/23 History biotin 1 mg capsule 1 mg PO DAILY 05/26/22 08/13/23 History nitroglycerin 0.6 mg sublingual 0.6 mg sublingual DIRECTED PRN 05/26/22 08/13/23 History tablet (Nitrostat) Chest Pain patiromer calcium sorbitex 8.4 8.4 g PO Q OTHER DAY 05/26/22 08/13/23 History gram oral powder packet (Veltassa) cholecalciferol (vitamin D3) 25 25 mcg PO DAILY 05/22/23 08/13/23 History mcg (1,000 unit) tablet (Vitamin D3) ferrous sulfate 325 mg (65 mg 325 mg PO DAILY 05/22/23 08/13/23 History iron) tablet (FeroSul) fluticasone propionate 50 2 spray intranasal DAILY PRN Nasal 05/22/23 08/13/23 History mcg/actuation nasal Congestion spray,suspension food supplemt, lactose-reduced 1 ea PO DAILY 05/22/23 08/13/23 History nystatin 100,000 unit/gram topical 1 applic topical TID PRN irritation 05/22/23 08/13/23 History powder (Nyamyc) Saccharomyces boulardii 250 mg 250 mg PO DAILY 08/13/23 08/13/23 History capsule (Florastor) psyllium husk 0.4 gram capsule 0.4 g PO Q OTHER DAY 08/13/23 08/13/23 History (Metamucil) Past Med/Surg History Medical History Hypertensive urgency Chronic anemia IgM lambda paraproteinemia HTN (hypertension) Anemia due to chronic kidney disease DM type 2 (diabetes mellitus, type 2) DORIS on CPAP Dyslipidemia CKD (chronic kidney disease), stage III GERD (gastroesophageal reflux disease) Hypothyroidism Pernicious anemia Surgical History History of gynecologic surgery anterior colporrhaphy History of hysteroscopy Status post tubal ligation History of total bilateral knee replacement (TKR) History of knee surgery History of appendectomy History of dilation and curettage S/P cholecystectomy Family History Mother , 85 Heart disease Diabetes Father , 65 Pancreatic cancer Sister Uterine cancer Breast cancer Denies family history of Ovarian cancer Colorectal cancer Social History Smoking Status: Former smoker Tobacco Type: Cigarettes Second Hand Exposure: No; Do You Dip or Chew Tobacco: No; Hx Alcohol Use: No Hx Substance Use: No Preferred Language: Congolese Communication Ability: Effective Client Portfolio Manager Required: No Beliefs That Will Affect Care: Caodaism Caodaism Beliefs: [employer] LENT marital status: Current Living Situation: Spouse Current Living Situation Comment: at home current occupational status: retired Feels Safe at Home: Yes Assistive Devices: None Review of Systems Review of Systems: All systems reviewed & are unremarkable except as noted in Subjective Physical Exam Physical Exam: General: Elderly female, Lying comfortably in bed, not in distress, on room air HEENT: EOMI, NEERU, MMM Chest: Clear breath sounds bilaterally, no wheezes or crackles CVS: Regular rate and rhythm, normal heart sounds Abdomen: Soft, non tender, not distended, normal bowel sounds Neuro: Awake, alert, oriented, conversing well, non focal Extremities: No cyanosis, clubbing or edema Results & Data Results & Data Vital Signs (Past 12 Hours) Vital Signs Temp Pulse Pulse Resp BP BP Pulse Ox 08/13/23 19:40 59 L 19 96 08/13/23 19:30 57 L 23 95 08/13/23 19:30 169/90 H 08/13/23 19:20 63 25 H 96 08/13/23 19:10 67 25 H 95 08/13/23 19:02 198/89 H 08/13/23 19:02 61 29 H 95 08/13/23 19:00 202/115 H 08/13/23 19:00 65 18 96 08/13/23 19:00 63 20 198/89 H 97 08/13/23 18:50 66 16 97 08/13/23 18:45 180/90 H 08/13/23 18:45 60 20 96 08/13/23 18:40 64 22 95 08/13/23 18:30 184/90 H 08/13/23 18:30 75 19 96 08/13/23 18:20 71 24 95 08/13/23 18:16 200/94 H 08/13/23 18:16 76 23 91 08/13/23 18:10 63 22 95 08/13/23 18:07 168/77 H 08/13/23 18:07 69 23 95 08/13/23 18:00 64 16 96 08/13/23 17:57 68 17 95 08/13/23 17:45 66 23 94 08/13/23 17:45 177/75 H 08/13/23 17:40 64 21 94 08/13/23 17:39 168/73 H 08/13/23 17:39 70 22 92 08/13/23 17:38 68 168/73 H 08/13/23 17:30 160/76 H 08/13/23 17:30 64 16 94 08/13/23 17:23 72 08/13/23 17:21 69 25 H 96 08/13/23 17:21 166/91 H 08/13/23 17:20 66 26 H 166/91 H 95 08/13/23 17:19 66 185/81 H 08/13/23 17:16 66 27 H 93 08/13/23 17:16 185/81 H 08/13/23 17:16 66 20 185/81 H 95 08/13/23 17:16 95 08/13/23 17:16 08/13/23 17:10 70 16 96 08/13/23 16:59 36.5 C 78 18 205/87 H 95 O2 Del Method 08/13/23 19:40 08/13/23 19:30 08/13/23 19:30 08/13/23 19:20 08/13/23 19:10 08/13/23 19:02 08/13/23 19:02 08/13/23 19:00 08/13/23 19:00 08/13/23 19:00 Room Air 08/13/23 18:50 08/13/23 18:45 08/13/23 18:45 08/13/23 18:40 08/13/23 18:30 08/13/23 18:30 08/13/23 18:20 08/13/23 18:16 08/13/23 18:16 08/13/23 18:10 08/13/23 18:07 08/13/23 18:07 08/13/23 18:00 08/13/23 17:57 08/13/23 17:45 08/13/23 17:45 08/13/23 17:40 08/13/23 17:39 08/13/23 17:39 08/13/23 17:38 08/13/23 17:30 08/13/23 17:30 08/13/23 17:23 08/13/23 17:21 08/13/23 17:21 08/13/23 17:20 08/13/23 17:19 08/13/23 17:16 08/13/23 17:16 08/13/23 17:16 Room Air 08/13/23 17:16 Room Air 08/13/23 17:16 Room Air 08/13/23 17:10 08/13/23 16:59 Room Air Code Status & VTE Plan VTE Prophylaxis Plan VTE Prophylaxis will be ordered: Yes (1) Chest pain Chest pain type: unspecified Qualified Code(s): R07.9 - Chest pain, unspecified
[2023-08-13] MEDS: OXYBUTYNIN CHLORIDE XL 5 MG TABCR PO SCH (20:17)
[2023-08-13] MEDS: LOSARTAN POTASSIUM 50 MG TAB PO SCH (20:17)
[2023-08-13] MEDS: PSYLLIUM or GUAR GUM FIBER 4GM PACKET PO SCH (20:18)
[2023-08-13] MEDS: INSULIN ASPART PER UNIT CHARGE SC SCH (20:47)
[2023-08-13] MEDS: SODIUM CHLORIDE 0.9% 1,000 ML IV SCH (22:09)
[2023-08-13] MEDS: ENOXAPARIN INJ 40 MG/0.4 ML SYR SQ SCH (23:17)
[2023-08-14] MEDS ORDERED: Nursing to Pharmacy Communication SCH ×2 (00:30→15:00)
[2023-08-14] MEDS ORDERED: hydrOXYzine HCl 10 MG TAB PO PRN (03:47)
[2023-08-14] MEDS: SODIUM CHLORIDE 0.9% 1,000 ML IV ONE (03:57)
[2023-08-14] MEDS: LOSARTAN POTASSIUM 50 MG TAB PO SCH (04:03)
[2023-08-14 05:40] LABS: Hematocrit (blood only) 31.2 % (37.0-47.0); Hemoglobin 10.4 g/dl (12.0-16.0); Mean Corpuscular Hgb Conc 33.3 g/dL (32.0-36.0); Mean Corpuscular Volume 89.9 fL (80.0-100.0); Mean Platelet Volume 10.5 fL (9.4-12.4); Platelet Count 166 K/uL (130-400); RDW Coefficient of Variation 12.7 % (11.5-14.5); RDW Standard Deviation 41.3 fL (36.4-46.3); Red Blood Count 3.47 M/uL (4.20-5.40); White Blood Count 7.61 K/ul (4.8-10.8)
[2023-08-14 05:56] LABS: BUN Creatinine Ratio 16.4 (10-20); Calcium 8.7 mg/dl (8.6-10.3); Creatinine Clr Calc Pharmacy 37.6 ml/min; Est GFR (African American) 52.6 ml/min; Est GFR (Non-African American) 45.4 ml/min; Magnesium 1.9 mg/dl (1.7-2.4); Potassium 3.3 mmol/L (3.5-5.1)
[2023-08-14 06:03] LABS: Troponin I High Sensitivity 28.1 pg/ml (0-14)
[2023-08-14 06:12] LABS: Thyroid Stimulating Hormone 3.931 uIu/ml (0.300-4.500)
[2023-08-14 06:18] LABS: Ferritin 234.9 ng/ml (8-388)
[2023-08-14] MEDS: INSULIN ASPART PER UNIT CHARGE SC SCH ×2 (06:29→18:11)
[2023-08-14] MEDS: POTASSIUM CHLORIDE CRTAB 20 MEQ TABCR PO STA (06:34)
[2023-08-14] MEDS: MAGNESIUM SULFATE / D5W 1 GM/100 ML BAG IV ONE (06:37)
[2023-08-14] MEDS: LEVOTHYROXINE SODIUM 75 MCG TABLET PO SCH (08:26)
[2023-08-14] MEDS: POTASSIUM CHLORIDE CRTAB 20 MEQ TABCR PO ONE (08:26)
[2023-08-14] MEDS ORDERED: NON-FORMULARY MEDICATION (Food Supplemt, Lactose-Reduced Liquid) PO SCH (09:00)
[2023-08-14] MEDS: POTASSIUM CHLORIDE / WTR 10 MEQ/100 ML PLCT IV SCH (10:08)
--- NOTE | 2023-08-14 18:30 | Hospitalist Progress Note ---
Date of Service August 14, 2023 Assessment & Plan (1) Chest pain: Plan: 88 year old female with HTN, DM, CKD, DORIS, hypothyroid who presented to the ED with CP, generalized weakness and decreased appetite Chest pain Intermittent for past 3 days, currently chest pain free. Given full dose aspirin in ED. Trop mildly elevated and subsequent troponins were not significantly elevated. EKG changes has anterolateral T wave inversion may be secondary to ischemia/LV hypertrophy .no change compared with before Has had echo and stress test 1 year back which was normal and was evaluated by cardio. Remains free from any pain Wanted to have cardiology evaluation as she is having this pain and that has been frightening to her Will ask for dobutamine stress echo as this was done in 2022 Will keep her n.p.o. after midnight (2) Elevated troponin: (3) Hypomagnesemia: (4) Hypertensive urgency: (5) DORIS on CPAP: (6) Hypothyroidism: (7) DM type 2 (diabetes mellitus, type 2): (8) Generalized weakness: (9) Decreased appetite: Plan Other significant medical problems are as follows: Hypertensive urgency- States she is not taking any BP meds currently. Will start on losartan at 50 mg hs. Will have HLZ prn with hold parameters Blood pressure remains at the upper end at 152/76 DM-2- takes trulicity weekly. Will have SSI prn Blood sugar is controlled Generalized weakness- Minimally mobile at home PT OT eval Decreased appetite- consider remeron at discharge or as OP. Continue boost Hypothyroid- on synthroid DORIS on CPAP- doesn't know the setting. Ordered CPAP per protocol DVT ppx- sc lovenox Dispo- PCU on tele Full code Admission and Anticipated Discharge Date Admission Date: August 13, 2023 Subjective 08/14/2023 The patient was seen and examined in telemetry unit in presence of the She was admitted with chest pain and with fear of having heart attack and synco pe She has been ruled out for any possibility of ACS Remains free from any chest pain Wants to make sure that is not from the heart before if she can be discharged Review of Systems Review of Systems: Unobtainable due to cognitive status Physical Exam Physical Exam: Lying in bed comfortably Constitutional: well developed, well nourished, + ill appearing and + obese Eyes: PERRL, conjunctivae normal, anicteric sclerae ENMT: external ear and nose normal, oropharynx normal Neck: trachea midline, no thyromegaly Respiratory: no respiratory distress Auscultation: + diminished lung sounds and + crackles (Minimal crackles at the bases) Cardiovascular: Rate/Rhythm: regular rate and regular rhythm; not tachycardic Heart Sounds: normal S1, normal S2 and + murmur (2/6 ESM over precordium) Gastrointestinal (Abdomen): Inspection/Auscultation: normal bowel sounds; abdomen not distended Percussion/Palpation: abdomen soft; abdomen nontender Musculoskeletal: No acute arthritis involving any joint Neurologic: normal touch/pain/proprioception and moves all extremities; no focal motor deficits Psychiatric: A+Ox3, euthymic affect Lymphatic: no cervical or axillary lymphadenopathy Results & Data Results & Data Vital Signs (Past 12 Hours) Vital Signs Temp Pulse Pulse Resp BP BP Pulse Ox 08/14/23 15:23 37.0 C 67 19 152/76 H 93 08/14/23 15:00 64 08/14/23 11:20 36.7 C 68 19 175/90 H 97 08/14/23 07:23 36.6 C 58 L 19 135/72 94 08/14/23 07:00 60 O2 Del Method 08/14/23 15:23 Room Air 08/14/23 15:00 08/14/23 11:20 Room Air 08/14/23 07:23 Room Air 08/14/23 07:00 Laboratory Results Short CBC 08/14/23 Range/Units 05:17 WBC 7.61 (4.8-10.8) K/ul Hgb 10.4 L (12.0-16.0) g/dl Hct 31.2 L (37.0-47.0) % Plt Count 166 (130-400) K/uL BMP 08/14/23 05:17 Sodium 141 Potassium 3.3 L Chloride 109 H Carbon Dioxide 26 BUN 18 Creatinine 1.10 Glucose 130 H Calcium 8.7 Urine 08/13/23 Range/Units 19:54 Urine Color Yellow Urine Appearance Clear (Clear) Urine pH 5.0 (4.5-7.5) Ur Specific [place] 1.010 (1.000-1.030) Urine Protein 2+ H (Negative) Urine Glucose (UA) Negative (Negative) Medications Administered Current Inpatient Medications Aspirin (Aspirin 81 Mg Ectab) 81 mg PO HS SIGRID Stop: 09/13/23 20:59 Dextrose (Dextrose 50% 50 Ml Syringe) 25 - 50 ml IV UD PRN; Protocol PRN Reason: Hypoglycemia Protocol Stop: 09/12/23 20:13 Enoxaparin Sodium (Enoxaparin Inj 40 Mg/0.4 Ml Syr) 40 mg SQ Q24H SIGRID Stop: 09/12/23 21:59 Last Admin: 08/13/23 23:17 Dose: 40 mg Glucagon (Glucagon For Inj 1 Mg Vial) 1 mg SQ UD PRN; Protocol PRN Reason: Hypoglycemia Protocol Stop: 09/12/23 20:13 Glucose (Glucose 10 Tab/Tube) 4 - 8 tab PO UD PRN; Protocol PRN Reason: Hypoglycemia Treatment Stop: 09/12/23 20:13 Glucose (Glucose 40% Gel 15 Gm Tube) 15 - 30 gm PO UD PRN; Protocol PRN Reason: Hypoglycemia Protocol Stop: 09/12/23 20:13 Hydralazine HCl (Hydralazine Hcl 20 Mg/Ml Vial) 5 mg IV Q6H PRN PRN Reason: Hypertension Stop: 09/12/23 21:50 Hydroxyzine HCl (Hydroxyzine Hcl 10 Mg Tab) 10 mg PO QID PRN PRN Reason: Anxiety Stop: 09/13/23 03:46 Sodium Chloride (Nss) 1,000 mls @ 50 mls/hr IV .Q20H ONE Stop: 08/14/23 23:44 Last Infusion: 08/14/23 13:54 Dose: Infused Insulin Aspart (Insulin Aspart Per Unit Charge) 0 units SC ACHS [facility] Stop: 09/13/23 05:59 Last Admin: 08/14/23 18:11 Dose: 2 units Levothyroxine Sodium (Levothyroxine Sodium 75 Mcg Tablet) 75 mcg PO QAM SIGRID Stop: 09/13/23 08:59 Last Admin: 08/14/23 08:26 Dose: 75 mcg Losartan Potassium (Losartan Potassium 50 Mg Tab) 100 mg PO QAM SIGRID Stop: 09/13/23 03:49 Last Admin: 08/14/23 04:03 Dose: 100 mg Miscellaneous (Carbohydrates For Hypoglycemia ) 15 - 30 gm PO UD PRN PRN Reason: Hypoglycemia Protocol Stop: 09/12/23 20:13 Oxybutynin Chloride (Oxybutynin Chloride Xl 5 Mg Tabcr) 5 mg PO HS [facility] Stop: 09/12/23 20:59 Last Admin: 08/13/23 20:17 Dose: 5 mg Psyllium Hydrophilic Mucilloid (Psyllium Or Guar Gum Fiber 4gm Packet) 2 gm PO Q2D [facility] Stop: 09/12/23 19:14 Last Admin: 08/13/23 20:18 Dose: 2 gm (1) Chest pain Chest pain type: unspecified Qualified Code(s): R07.9 - Chest pain, unspecified
[2023-08-14] MEDS: ASPIRIN 81 MG ECTAB PO SCH (20:45)
[2023-08-14] MEDS: hydrALAZINE HCL 20 MG/ML VIAL IV PRN (23:59)
--- NOTE | 2023-08-15 05:44 | Electrocardiogram Report ---
Test Reason : Blood Pressure : / mmHG Vent. Rate : 070 BPM Atrial Rate : 070 BPM P-R Int : 136 ms QRS Dur : 090 ms QT Int : 396 ms P-R-T Axes : 020 013 197 degrees QTc Int : 427 ms Normal sinus rhythm with sinus arrhythmia Abnormal ECG When compared with ECG of 29-SEP-2022 13:34, T wave inversion more evident in Anterior leads Confirmed by Manoj Farah ([id number]) on 08/15/2023 5:44:38 AM Referred By: REFERRED SELF Confirmed By:Manoj Farah
[2023-08-15 08:43] LABS: BUN Creatinine Ratio 12.9 (10-20); Calcium 9.1 mg/dl (8.6-10.3); Creatinine Clr Calc Pharmacy 29.4 ml/min; Est GFR (African American) 39.7 ml/min; Est GFR (Non-African American) 34.2 ml/min; Magnesium 1.8 mg/dl (1.7-2.4); Phosphorus 2.2 mg/dl (2.5-4.9); Potassium 4.5 mmol/L (3.5-5.1)
[2023-08-15] MEDS ORDERED: DOBUTamine HCL 12.5 MG/ML 20 ML VIAL IV ONE (09:39)
[2023-08-15] MEDS ORDERED: METOPROLOL TARTRATE 1 MG/ML VIAL IV ONE (09:39)
[2023-08-15] MEDS ORDERED: ATROPINE SULFATE 0.1 MG/ML 10ML SYR IV ONE (09:39)
[2023-08-15] MEDS ORDERED: NITROGLYCERIN SL 0.4 MG/TAB TAB ONE (09:40)
--- NOTE | 2023-08-15 12:56 | Hospitalist Progress Note ---
Date of Service August 15, 2023 Assessment & Plan (1) Chest pain: Plan: 88 year old female with HTN, DM, CKD, DORIS, hypothyroid who presented to the ED with CP, generalized weakness and decreased appetite Chest pain Intermittent for past 3 days, currently chest pain free. Given full dose aspirin in ED. Trop mildly elevated and subsequent troponins were not significantly elevated. EKG changes has anterolateral T wave inversion may be secondary to ischemia/LV hypertrophy .no change compared with before Has had echo and stress test 1 year back which was normal and was evaluated by cardio. Remains free from any pain Wanted to have cardiology evaluation as she is having this pain and that has been frightening to her Will ask for dobutamine stress echo as this was done in 2022 Will keep her n.p.o. after midnight Status post negative dobutamine stress echo She remains totally asymptomatic and wants to go home (2) Elevated troponin: (3) Hypomagnesemia: (4) Hypertensive urgency: Plan: She has not been taking the lisinopril Her blood pressure remains elevated and she will be put back on lisinopril as before This can be changed by her PCP (5) DORIS on CPAP: (6) Hypothyroidism: (7) DM type 2 (diabetes mellitus, type 2): (8) Generalized weakness: (9) Decreased appetite: Plan Other significant medical problems are as follows: Hypertensive urgency- States she is not taking any BP meds currently. Will start on losartan at 50 mg hs. Will have HLZ prn with hold parameters Blood pressure remains at the upper end at 152/76 Lisinopril has been restarted and will be continued for better control of blood pressure DM-2- takes trulicity weekly. Will have SSI prn Blood sugar is controlled She has diabetes and lisinopril will be a good choice to control the blood pressure Generalized weakness- Minimally mobile at home Has had PT and OT evaluation and recommended home She has been ambulating and she is back to her baseline Decreased appetite- consider remeron at discharge or as OP. Continue boost Hypothyroid- on synthroid DORIS on CPAP- doesn't know the setting. Ordered CPAP per protocol DVT ppx- sc lovenox Dispo- PCU on tele Full code Will be discharged home today Admission and Anticipated Discharge Date Admission Date: August 13, 2023 Subjective 08/14/2023 The patient was seen and examined in telemetry unit in presence of the She was admitted with chest pain and with fear of having heart attack and syncope She has been ruled out for any possibility of ACS Remains free from any chest pain Wants to make sure that is not from the heart before if she can be discharged 08/15/2023 The patient was seen and examined in telemetry unit in presence of the family member She is a status post negative dobutamine stress echo She wants to go home Denies any more symptoms Review of Systems Review of Systems: All systems reviewed and are unremarkable except as noted below Physical Exam Physical Exam: Lying in bed comfortably Constitutional: well developed, well nourished, + ill appearing and + obese Eyes: PERRL, conjunctivae normal, anicteric sclerae ENMT: external ear and nose normal, oropharynx normal Neck: trachea midline, no thyromegaly Respiratory: no respiratory distress Auscultation: + diminished lung sounds and + crackles (Minimal crackles at the bases) Cardiovascular: Rate/Rhythm: regular rate and regular rhythm; not tachycardic Heart Sounds: normal S1, normal S2 and + murmur (2/6 ESM over precordium) Gastrointestinal (Abdomen): Inspection/Auscultation: normal bowel sounds; abdomen not distended Percussion/Palpation: abdomen soft; abdomen nontender Musculoskeletal: No acute arthritis involving any joint Neurologic: normal touch/pain/proprioception and moves all extremities; no focal motor deficits Psychiatric: A+Ox3, euthymic affect Lymphatic: no cervical or axillary lymphadenopathy Results & Data Results & Data Vital Signs (Past 12 Hours) Vital Signs Temp Pulse Resp BP BP Pulse Ox O2 Del Method 08/15/23 12:15 36.8 C 66 17 155/84 H 96 Room Air 08/15/23 07:14 37.0 C 62 18 118/67 94 Room Air 08/15/23 03:52 36.6 C 62 135/70 95 Room Air Laboratory Results [facility] 08/15/23 07:55 Sodium 139 Potassium 4.5 D Chloride 109 H Carbon Dioxide 24 BUN 18 Creatinine 1.39 H Glucose 142 H Calcium 9.1 Medications Administered Current Inpatient Medications Aspirin (Aspirin 81 Mg Ectab) 81 mg PO HS SIGRID Stop: 09/13/23 20:59 Last Admin: 08/14/23 20:45 Dose: 81 mg Dextrose (Dextrose 50% 50 Ml Syringe) 25 - 50 ml IV UD PRN; Protocol PRN Reason: Hypoglycemia Protocol Stop: 09/12/23 20:13 Enoxaparin Sodium (Enoxaparin Inj 30 Mg/0.3 Ml Syr) 30 mg SQ HS SIGRID Stop: 09/14/23 20:59 Glucagon (Glucagon For Inj 1 Mg Vial) 1 mg SQ UD PRN; Protocol PRN Reason: Hypoglycemia Protocol Stop: 09/12/23 20:13 Glucose (Glucose 10 Tab/Tube) 4 - 8 tab PO UD PRN; Protocol PRN Reason: Hypoglycemia Treatment Stop: 09/12/23 20:13 Glucose (Glucose 40% Gel 15 Gm Tube) 15 - 30 gm PO UD PRN; Protocol PRN Reason: Hypoglycemia Protocol Stop: 09/12/23 20:13 Hydralazine HCl (Hydralazine Hcl 20 Mg/Ml Vial) 5 mg IV Q6H PRN PRN Reason: Hypertension Stop: 09/12/23 21:50 Last Admin: 08/14/23 23:59 Dose: 5 mg Hydroxyzine HCl (Hydroxyzine Hcl 10 Mg Tab) 10 mg PO QID PRN PRN Reason: Anxiety Stop: 09/13/23 03:46 Insulin Aspart (Insulin Aspart Per Unit Charge) 0 units SC ACHS SIGRID Stop: 09/13/23 05:59 Last Admin: 08/15/23 10:43 Dose: Not Given Levothyroxine Sodium (Levothyroxine Sodium 75 Mcg Tablet) 75 mcg PO QAM SIGRID Stop: 09/13/23 08:59 Last Admin: 08/15/23 07:55 Dose: 75 mcg Losartan Potassium (Losartan Potassium 50 Mg Tab) 100 mg PO QAM SIGRID Stop: 09/13/23 03:49 Last Admin: 08/15/23 07:55 Dose: 100 mg Miscellaneous (Carbohydrates For Hypoglycemia ) 15 - 30 gm PO UD PRN PRN Reason: Hypoglycemia Protocol Stop: 09/12/23 20:13 Oxybutynin Chloride (Oxybutynin Chloride Xl 5 Mg Tabcr) 5 mg PO HS SIGRID Stop: 09/12/23 20:59 Last Admin: 08/14/23 20:45 Dose: 5 mg Psyllium Hydrophilic Mucilloid (Psyllium Or Guar Gum Fiber 4gm Packet) 2 gm PO Q2D [facility]RID Stop: 09/12/23 19:14 Last Admin: 08/13/23 20:18 Dose: 2 gm (1) Chest pain Chest pain type: unspecified Qualified Code(s): R07.9 - Chest pain, unspecified
[2023-08-15] MEDS ORDERED: ENOXAPARIN INJ 30 MG/0.3 ML SYR SQ SCH (21:00)
--- NOTE | 2023-08-16 08:00 | Discharge Summary ---
Date of Service August 15, 2023 Admission HPI Per Admitting Provider 88 year old female with h/o HTN, DM, CKD, HLD, DORIS, hypothyroidism who presented to the ED with intermittent CP, generalized weakness and decreased appetite. States decreased appetite for many month now and has generalized weakness, however over the past 3 days she was having intermittent midsternal chest pain without any radiation, not exertional, no known provoking or relieving factors, no other associated symptoms. Describes as dull pressure. Denies any heart burn symptoms. No fever, chills, N/V, SOB. States she has not felt the same after she had Flu Jun last year. In the ED, she was hypertensive but otherwise vitals stable. She had mild elevation in troponin and hypomagnesemia. Hospitalist service consulted for further management. at bedside. Admission Exam Per Admitting Provider Physical Exam: General: Elderly female, Lying comfortably in bed, not in distress, on room air HEENT: EOMI, NEERU, MMM Chest: Clear breath sounds bilaterally, no wheezes or crackles CVS: Regular rate and rhythm, normal heart sounds Abdomen: Soft, non tender, not distended, normal bowel sounds Neuro: Awake, alert, oriented, conversing well, non focal Extremities: No cyanosis, clubbing or edema Principal Diagnosis Chest pain, negative DSE Discharge Exam Lying in bed comfortably Constitutional well developed, well nourished, + ill appearing and + obese Eyes PERRL, conjunctivae normal, anicteric sclerae ENMT external ear and nose normal, oropharynx normal Neck trachea midline, no thyromegaly Respiratory no respiratory distress Auscultation: + diminished lung sounds and + crackles (Minimal crackles at the bases) Cardiovascular Rate/Rhythm: regular rate and regular rhythm; not tachycardic Heart Sounds: normal S1, normal S2 and + murmur (2/6 ESM over precordium) Gastrointestinal (Abdomen) Inspection/Auscultation: normal bowel sounds; abdomen not distended Percussion/Palpation: abdomen soft; abdomen nontender Neurologic normal touch/pain/proprioception and moves all extremities; no focal motor deficits Psychiatric A+Ox3, euthymic affect Lymphatic no cervical or axillary lymphadenopathy Discharge Data Allergies Allergy/AdvReac Type Severity Reaction Status Date / Time ciprofloxacin Allergy Intermediate RASH Verified 08/13/23 18:03 BENEDICT Inhibitors AdvReac Intermediate COUGH Verified 08/13/23 18:03 metformin AdvReac Intermediate GI SYMPTOMS Verified 08/13/23 18:03 Ordered Studies 08/13/23 17:10 CT head/brain wo con Stat Hospital Course (1) Chest pain: 88 year old female with HTN, DM, CKD, DORIS, hypothyroid who presented to the ED with CP, generalized weakness and decreased appetite Chest pain Intermittent for past 3 days, currently chest pain free. Given full dose aspirin in ED. Trop mildly elevated and subsequent troponins were not significantly elevated. EKG changes has anterolateral T wave inversion may be secondary to ischemia/LV hypertrophy .no change compared with before Has had echo and stress test 1 year back which was normal and was evaluated by cardio. Remains free from any pain Wanted to have cardiology evaluation as she is having this pain and that has been frightening to her Will ask for dobutamine stress echo as this was done in 2022 Will keep her n.p.o. after midnight Status post negative dobutamine stress echo She remains totally asymptomatic and wants to go home (2) Elevated troponin: (3) Hypomagnesemia: (4) Hypertensive urgency: She has not been taking the lisinopril Her blood pressure remains elevated and she will be put back on lisinopril as before This can be changed by her PCP (5) DORIS on CPAP: (6) Hypothyroidism: (7) DM type 2 (diabetes mellitus, type 2): (8) Generalized weakness: (9) Decreased appetite: Plan Other significant medical problems are as follows: Hypertensive urgency- States she is not taking any BP meds currently. Will start on losartan at 50 mg hs. Will have HLZ prn with hold parameters Blood pressure remains at the upper end at 152/76 Lisinopril has been restarted and will be continued for better control of blood pressure DM-2- takes trulicity weekly. Will have SSI prn Blood sugar is controlled She has diabetes and lisinopril will be a good choice to control the blood pressure Generalized weakness- Minimally mobile at home Has had PT and OT evaluation and recommended home She has been ambulating and she is back to her baseline Decreased appetite- consider remeron at discharge or as OP. Continue boost Hypothyroid- on synthroid DORIS on CPAP- doesn't know the setting. Ordered CPAP per protocol DVT ppx- sc lovenox Dispo- PCU on tele Full code Will be discharged home today Total Time Total Time Spent Total Time Spent (In Minutes): 40 minutes Discharge Plan Discharge Items Patient Disposition: Home - Self-Care Reason For Visit: CP, WEAKNESS, DECREASED APPETITE Discharge Diagnosis: Chest pain, negative DSE Condition on Discharge: Good Activity: Resume your previous activity Non-emergency contact: Primary Care Provider Call non-emergency contact if: you have any medication questions and your symptoms worsen Follow-up/Referrals: Milton Balderas MD [Primary Care Provider] - (Your doctor office will give you a call with an appointment within 7 days) Diet: Heart Healthy Addtl Attending Provider Instructions: Please take precautions to avoid falls Your lisinopril has been restarted for better control of blood pressure and this is good for your kidney involvement with diabetes as well No change with her other medications Please keep appointments with your healthcare provider Pending Studies at Discharge: No Stand-Alone Forms: My OnHand, Smoking Cessation Medications and DC Order Prescriptions: New losartan 50 mg tablet 50 mg PO DAILY Qty: 30 0RF Continued levothyroxine 75 mcg tablet 75 mcg PO QAM aspirin 81 mg Tablet,Delayed Release (Dr/Ec) 81 mg PO HS oxybutynin chloride 5 mg tablet extended release 24hr 5 mg PO HS Procrit 10,000 unit/mL solution 10,000 unit subcut MONTHLY PRN (Reason: WHEN NEEDED) Trulicity 0.75 mg/0.5 mL pen injector 0.75 mg SUBCUT WK Rx Instructions: ADMINISTER EVERY MONDAY Veltassa 8.4 gram powder in packet 8.4 g PO Q OTHER DAY nitroglycerin [Nitrostat] 0.6 mg Tablet, Sublingual 0.6 mg sublingual DIRECTED PRN (Reason: Chest Pain) biotin 1 mg Capsule 1 mg PO DAILY ferrous sulfate [FeroSul] 325 mg (65 mg iron) tablet 325 mg PO DAILY nystatin [Nyamyc] 100,000 unit/gram powder 1 applic TOPICAL TID PRN (Reason: irritation) fluticasone propionate 50 mcg/actuation spray,suspension 2 spray INTRANASAL DAILY PRN (Reason: Nasal Congestion) food supplemt, lactose-reduced Liquid 1 ea PO DAILY cholecalciferol (vitamin D3) [Vitamin D3] 25 mcg (1,000 unit) Tablet 25 mcg PO DAILY psyllium husk [Metamucil] 0.4 gram Capsule 0.4 g PO Q OTHER DAY Saccharomyces boulardii [Florastor] 250 mg capsule 250 mg PO DAILY Rx Instructions: swallow whole Discontinued losartan 25 mg tablet 25 mg PO QDL Discharge Orders: Discharge Order (Routine); Ordered 08/15/23 Ordered By: Mic Ochoa Admission Data Admit Date/Time: 08/13/23 18:34 Attending Provider: Jose Alfredo Jackson Admit Provider: Jose Alfredo Jackson Primary Care Provider: Milton Balderas Other Interventions: Discharge Summary Assessment (RN) Last Done: 08/15/23 14:05
== END 2023-08-15 14:05 | disposition home or self-care (01) ==
LOC: 4W 16:56 → ED 16:56 → 4W 20:52

== ENCOUNTER 2023-10-14 19:56 | Inpatient (IN) ==
--- OUTSIDE RECORDS SUMMARY | 2023-10-14 20:05 | External Medical Summary | Summary of Care ---
Author Name Unknown Organization [facility] Address [address] [place] [address] Phone [phone] Care Team Providers Care Reliability Manager Name Role Phone Milton Balderas MD Primary Care Provider + Reason for Visit * Reason Onset Date Comments Medication Question 10/13/2023 Encounter Details Date Type Department Care Team (Late st Contact Info) Description 10/13/2023 Telephone Family Practice [facility] [address] [place] [address] Milton Balderas MD [address] [place] [address] Medication Question Allergies Active Allergy Reactions Criticality Noted Date Comments Neville Inhibitors Cough 09/29/2010 Lisinopril causes cough Ciprofloxacin Rash Medium 05/03/2014 Rash with first IV dose in hospital Metformin Diarrhea 09/29/2010 documented as of this encounter (statuses as of 10/13/2023) Medications Medication Sig Dispensed Refills Start Date [...] the tongue every 5 minutes as needed. Active Probiotic Product (PROBIOTIC DAILY) Capsule Take 1 Cap by mouth daily. 09/17/2019 Active Biotin 1 MG Capsule Take 1 Capsule by mouth in the morning and 1 Capsule at noon and 1 Capsule before bedtime. Active Metamucil 0.36 GM Oral Capsule (Psyllium) Take by mouth every other day . Active FreeStyle Lancets USE TO TEST BLOOD SUGAR 2 TIMES A DAY Dx: E11.9 200 Each 3 06/14/2022 Active Oxybutynin Chloride ER 5 MG Oral Tablet Extended Release 24 Hour (Ditropan XL)Indications:Uri nary frequency TAKE 1 TABLET DAILY (DO NOT CUT, CRUSH OR CHEW) 90 Tablet 3 06/20/2022 Active Nystatin 418354 UNIT/GM External Powder (Nystop)Indication s:Tinea corporis Apply topically to affected area 3 times a day. Apply to under breasts and belly 60 g 1 07/13/2022 Active Additional Information Patient not taking.Reported on 08/21/2023 Boost Oral Liquid Take by mouth daily. Active Vitamin D3 25 MCG (1000 UT) Oral Tablet (Vitamin D3)Indications:Vit cordova D deficiency Take 1 Tablet by mouth in the morning. 12/22/2022 Active Veltassa 8.4 GM Oral Packet (Patiromer Sorbitex Calcium)Indication s:End stage renal disease (HCC) take 1 packet every other day 30 Each 3 12/26/2022 Active CPAP every night at bedtime. Active Levothyroxine Sodium 75 MCG Oral Tablet (Levoxyl) TAKE 1 TABLET DAILY FIRST THING IN THE MORNING 90 Tablet 3 02/14/2023 Active Procrit 88793 UNIT/ML Injection SolutionIndication s:Anemia of chronic renal [...] PEN WEEKLY 6 mL 1 05/02/2023 Active FandeavorTouch Verio In Vitro Strip (Glucose Blood) Use to test blood sugar 2 times a day. DX E11.9 200 Strip 1 06/09/2023 Active FandeavorTouch Delica Lancets 30G USE TO CHECK GLUCOSE UP TO 4 TIMES DAILY 400 Each 3 06/09/2023 Active Fluticasone Propionate 50 MCG/ACT Nasal Suspension (Flonase) Administer 2 Sprays into each nostril in the morning. 16 g 1 07/07/2023 Active Losartan Potassium 50 MG Oral Tablet (Cozaar)Indication s:HTN, goal below 130/80 Take 1 Tablet by mouth in the morning. 90 Tablet 3 09/11/2023 Active Sulfamethoxazole-T rimethoprim 800-160 MG Oral Tablet (Bactrim DS) Take 1 Tablet by mouth in the morning and 1 Tablet before bedtime. Do all this for 7 days. Until gone. 14 Tablet 10/12/2023 Active documented as of this encounter (statuses as of 10/13/2023) Active Problems Problem Noted Date Diagnosed Date [...] Overview: Found on barium swallow, 01/25/2010 at [facility] DORIS on CPAP 11/10/2010 Overview: Sleep study on 12/24/2009, [facility], Cpap 8, flex setting 3 AHP ICD-10 update of inactive term History of basal cell cancer 11/10/2010 Overview: BCC, left neck, 12/24/2009 ICD-10 update of inactive term HTN, goal below 130/80 09/29/2010 Dyslipidemia, goal LDL below 100 09/29/2010 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 Pernicious anemia Hypothyroidism GERD (gastroesophageal reflux disease) documented as of this encounter (statuses as of 10/13/2023) Resolved Problems Problem Noted Date Diagnosed Date [...] as of this encounter (statuses as of 10/13/2023) Immunizations Name Administration Dates Next Due COVID-19 mRNA, LNP-s, No Pre serve, 2-Dose Series (Symonics) 03/15/2021,07/15/2020,06/17/2020 Pneumococcal Conjugate Vacc, 13 Valent (Prevnar) [...] Date Recorded PHQ Adult Total Score 0 08/23/2023 Hunger Vital Sign Answer Date Recorded Within the past 12 months, y ou worried that your food would run out before you got the money to buy more. Never true 08/23/19 24 Within the past 12 months, t he food you bought just didn't last and you didn't have money to get more. Never true 08/23/2023 Sex and Gender Information Value Date Recorded Sex Assigned at Female 05/25/2023 9:53 AM EST Gender Identity Female 05/25/2023 9:53 AM EST Sexual Orientation Straight 08/28/2020 10 :56 AM EDT Job Start Date Occupation Industry Not on file Not on file Not on file documented as of this encounter Miscellaneous Notes * Telephone Encounter - Emily Leos LPN - 10/13/2023 3:19 PM EDT Called and spoke with patient. Notified of messages. Questions answered. Final culture results just came back today. Unfortunately she is growing a quite resistant strain of E. Coli. It is sensitive to bactrim orally and no other agent so we will need to treat it with that. Rx called to pharmacy. She MUST stay well hydrated on this or risk further decrement to her kidney function. CrCl calculated at 35 so she can take full dose Tm/smx safely. Sent to pharmacy. - [facility] [address] in [place]. thanks * Telephone Encounter - Dianne Mora CPhT - 10/13/2023 9:51 AM EDT Pt calling stating doctor office LM on Pt phone stating they have prescribe the wrong antibiotic which is Sulfamethoxazole-Trimethoprim 800-160 MG Oral Tablet (Bactrim DS) Pt was not sure what time was message or who left the message on Pt phone please advise . Caller can be reached at [phone]. Thank you, Dianne Mora CPhT [facility] ([facility]) 10/13/2023,9:55 AM documented in this encounter Plan of Treatment Upcoming Encounters Date Type Department Care Team (Late st Contact Info) Description 10/24/2023 11:00 AM EDT Laboratory Laboratory, [place] [address] [place] [address] [facility] [address] [place] [address] 10/25/2023 9:30 AM EDT Pharmacy Pharmacy, [id number] [address] 12/28/2023 10:00 AM EDT Office Visit Family Practice [facility] [address] [place] [address] Milton Balderas MD 132 [facility] [place] [address] 01/30/2024 8:30 AM EDT Office Visit [facility] Disorders [facility]tr [facility] [address] [place] [phone] Lucila Flanagan CRNP [address] [place] [address] 02/01/2024 2:30 PM EDT Office Visit Nephrology, [address] [place] [address] Kamini Hyde PA-C [address] [place] [address] Health Maintenance Due Date Last Done Comments Diabetic Eye Exam 12/23/2021 12/23/2020, , 12/19/2019, Additional history exists COVID-19 Vaccine ( season) 2023 03/15/2021, 07/15/2020, 06/17/2020 HbA1c 10/27/2023 04/27/2023, 07/07, 03/18/2022, Additional history exists Diabetic Foot Exam 05/25/2024 05/25/2023, 0 08/18/2021, 08/27/2020, Additional history exists Depression Screening 08/22/2024 08/23/2023 Albumin/Creatinine Ratio 08/30/2024 024, 07/26/2023, 04/28/2023, Additional history exists TSH 09/11/2024 09/12/2023, 06/08, 04/27/2023, Additional history exists DTaP,Tdap,and Td Vaccines (3 [...] Onset Date Last Indicated Resolved Time ESBL 10/09/2023 10/09/2023 documented as of this encounter Care Teams Reliability Manager Relationship Specialty Start Date End Date Milton Balderas MD [address] [place] [address] PCP - General Family Medicine 10/13/20 documented as of this encounter
--- OUTSIDE RECORDS SUMMARY | 2023-10-14 20:05 | External Medical Summary | Summary of Care ---
Author Name Unknown Organization [facility] Address [address] [place] [address] Phone [phone] Care Team Providers Care Fitness Technician Name Role Phone Milton Balderas MD Primary Care Provider + Reason for Visit * Reason Onset Date Comments Test Results 10/10/2023 Encounter Details Date Type Department Care Team (Late st Contact Info) Description 10/10/2023 Telephone Family Practice [facility] [address] [place] [address] Reza Tubbs MD [address] [place] [address] Test Results Allergies Active Allergy Reactions Criticality Noted Date Comments Neville Inhibitors Cough 09/29/2010 Lisinopril causes cough Ciprofloxacin Rash Medium 05/03/2014 Rash with first IV dose in hospital Metformin Diarrhea 09/29/2010 documented as of this encounter (statuses as of 10/12/2023) Medications Medication Sig Dispensed Refills Start Date [...] CHEW) 90 Tablet 3 06/20/2022 Active Nystatin 930491 UNIT/GM External Powder (Nystop)Indication s:Tinea corporis Apply [...] MORNING 90 Tablet 3 02/14/2023 Active Procrit 73738 UNIT/ML Injection SolutionIndication s:Anemia of chronic renal [...] as of this encounter (statuses as of 10/12/2023) Active Problems Problem Noted Date Diagnosed Date [...] as of this encounter (statuses as of 10/12/2023) Resolved Problems Problem Noted Date Diagnosed Date [...] as of this encounter (statuses as of 10/12/2023) Immunizations Name Administration Dates Next Due COVID-19 mRNA, LNP-s, No Pre serve, 2-Dose Series (LatamLeap) 03/15/2021,07/15/2020,06/17/2020 Pneumococcal Conjugate Vacc, 13 Valent (Prevnar) [...] encounter Miscellaneous Notes * Telephone Encounter - Reza Tubbs MD - 10/12/2023 3:47 PM EDT Final culture results just came back today. [...] to pharmacy. - [facility] [address] in [place]. thanks * Telephone Encounter - Grabiel Verma OSA - 10/10/2023 9:10 AM EDT Pt calling checking on urine labs from yesterday 10/08. Pt is having increased pressure and burning with urination. Pt is having urgency and frequency as well. Pt asking what she can do until she gets results. Pt uses [facility] in [place]. Please advise pt at [phone]. documented in this encounter Plan of Treatment Upcoming Encounters Date Type Department Care Team (Late st Contact Info) Description 10/24/2023 11:00 AM EDT Laboratory Laboratory, [place] [address] [place] [address] [facility] [address] [place] [address] 10/25/2023 9:30 AM EDT Pharmacy Pharmacy, [address] [id number] Clinic, [address] [address] 12/28/2023 10:00 AM EDT Office Visit Family Practice [facility] [address] [place] [address] Milton Balderas MD 132 [facility] [place] [address] 01/30/2024 8:30 AM EDT Office Visit Sleep Disorders [facility] [address] [place] [phone] Lucila Flanagan CRNP 132 [facility] [place] [address] 02/01/2024 2:30 PM EDT Office Visit Nephrology, [facility] [address] [place] [address] ZemaitisKamini PA-C [address] [place] [address] Health Maintenance Due Date Last Done Comments [...] documented as of this encounter Care Teams Fitness Technician Relationship Specialty Start Date End Date Milton Balderas MD [address] [place] [address] PCP - General Family Medicine 10/13/20 documented as of this encounter
--- OUTSIDE RECORDS SUMMARY | 2023-10-14 20:06 | External Medical Summary ---
Author Name Unknown Address Unknown Organization [id number][place] [place] [address] [facility] [address] Laboratory Report Ordering Provider Test Date Status ASHLEY CISNEROS 10/09/2023 15:49:04 Final <10,000 colonies/ml normal f clarence, one colony type Observation Date Value Abnormality Reference (Units ) Status Bacteria identified in Specimen by Culture 10/09/2023 15:49:04 [id number]^ESCHE RICHIA COLI ESBL Abnormal Final 10,000 to 100,000 colonies/m L Escherichia coli ESBL producing organism, This patient may require isolation.
This gram negative bacilli displays in vitro resistance to multiple antibiotics. This patient may require isolation. Carbapenem use is preferred. Contact infectious disease service for further recommendations. Performing Location [facility] [place] [address] [facility] [address] Ordering Provider Test Date Status ASHLEY CISNEROS 10/09/2023 15:49:04 Final Observation Date Value Abnormality Reference (Units ) Status Ampicillin 10/09/2023 15:49:04 >=32 Resistant Final Ampicillin + Sulbactam 10/09/2023 15:49:04 >=32 Resistant Final Cefazolin 10/09/2023 15:49:04 >=64 Resistant Final Cefepime susceptibility 10/09/2023 15:49:04 >=64 Resistant Final Ceftriaxone suceptibility 10/09/2023 15:49:04 >=64 Resistant Final Ciprofloxacin 10/09/2023 15:49:04 >=4 Resistant Final Due to serious side effects, the FDA has advised against using Ciprofloxacin to treat uncomplicated UTIs and respiratory tract infections unless there are no alternative treatment options. Gentamicin susceptibility 10/09/2023 15:49:04 >=16 Resi stant Final Levofloxacin susceptibility 10/09/2023 15:49:04 >=8 Re sistant Final Due to serious side effects, the FDA has advised against using Levofloxacin to treat uncomplicated UTIs and respiratory tract infections unless there are no alternative treatment options. Meropenem [Susceptibility] 10/09/2023 15:49:04 <=0.25 Tanja ceptible Final Nitrofurantoin susceptibility 10/09/2023 15:49:04 64 Intermediate Final Piperacillin + Tazobactamsusceptibility 10/09/2023 15:49:04 64 Resistant Final Tobramycinsusceptibility 10/09/2023 15:49:04 8 Resis tant Final TMP-SMZ susceptibility 10/09/2023 15:49:04 <=20 Suscept ible Final Performing Location [facility] [place] [address] [facility] [address] Ordering Provider Test Date Status ASHLEY ICSNEROS 10/09/2023 15:49:04 Final Observation Date Value Abnormality Reference (Units ) Status Ertapenem [Susceptibility] 10/09/2023 15:49:04 26 Susceptible Susceptible >21 , Intermediate <=21 , Resistant <=18 Final Test: Culture, Urine, Quant itative
Specimen Source: Urine, Clean Catch
Specimen Type: Urine
Specimen Date: 10/09/2023 1549
Result Date: 10/13/2023 1000
Result Status: Final result
Abnormal: Yes
Resulting Lab: [facility] [place]
[address]
[facility] [address]

CULTURE

10,000 to 100,000 colonies/mL Escherichia coli ESBL producing organism, This
patient may require isolation. (Abnormal)

This gram negative bacilli displays in vitro resistance to multiple
antibiotics. This patient may require isolation. Carbapenem use is
preferred. Contact infectious disease service for further recommendations.

<10,000 colonies/ml normal roberth, one colony type

SUSCEPTIBILITY

Escherichia coli Escherichia coli
ESBL producing ESBL producing
organism, This organism, This
patient may require patient may require
isolation. isolation.
METHOD CHAMORRO COHEN MICROBROTH DILUTIONS

AMPICILLIN >=32 Resistant
AMPICILLIN/SULBACTAM >=32 Resistant
CEFAZOLIN >=64 Resistant
CEFEPIME >=64 Resistant
CEFTRIAXONE >=64 Resistant
CIPROFLOXACIN >=4 Resistant
[1]
ERTAPENEM 26 Susceptible
GENTAMICIN >=16 Resistant
LEVOFLOXACIN >=8 Resistant
[2]
MEROPENEM <=0.25 Susceptible
NITROFURANTOIN 64 Intermediate
PIPERACILLIN TAZOBACTAM 64 Resistant
TOBRAMYCIN 8 Resistant
TRIMETH/SULFAMETHOXAZOLE <=20 Susceptible

[1] Due to serious side effects, the FDA has advised against using
Ciprofloxacin to treat uncomplicated UTIs and respiratory tract infections
unless there are no alternative treatment options.

[2] Due to serious side effects, the FDA has advised against using
Levofloxacin to treat uncomplicated UTIs and respiratory tract infections
unless there are no alternative treatment options.

null Performing Location [facility] [place] [address] [facility] [address]
--- NOTE | 2023-10-14 20:46 | Emergency Department Note ---
Impression & Plan Generalized weakness, Hypomagnesemia, SOL (acute kidney injury), Abnormal LFTs, History of ESBL E. coli infection ED Provider Note NAME: KELLI ALBRIGHT AGE: 88 SEX: F : 1935 ARRIVES VIA: Walk-In INFORMANT: Patient, the patient's family member ED PROVIDER(S): Gómez Snider DO CHIEF COMPLAINT: Generalized weakness HPI: Patient is an 88-year-old female who presented to the emergency department for generalized weakness. The patient states that she was seen in our facility recently twice. She was diagnosed with urinary tract infection. She was started on Keflex recently. She was then started on Bactrim after her urinalysis came back positive for E. coli with ESBL. The patient denies having any vomiting but has had nausea. She denies having any abdominal pain at this time. She denies having any flank pain. She complains of generalized weakness and difficulty ambulating. She states that she does not feel well and has not been eating. The patient has not been able to see her family doctor for the symptoms. The patient presented to the emergency department because of ongoing symptoms and concern that she was not doing well at home. ROS: See above HPI for pertinent positives & negatives. A total of 10 systems reviewed and were otherwise negative. PAST MEDICAL HISTORY: See Below PAST SURGICAL HISTORY: See Below FAMILY HISTORY: See Below SOCIAL HISTORY: See Below HOME MEDICATIONS: See Below ALLERGIES: See Below VITALS: See Below PHYSICAL EXAMINATION: GENERAL: Patient is awake alert in no acute distress patient is resting comfortably and showing no signs of anxiety EYES: The conjunctivae are clear. The pupils are round and reactive. EARS, NOSE, MOUTH AND THROAT: The nose is without any evidence of any deformity. Mucous membranes are dry. NECK: The neck is nontender and supple. RESPIRATORY: Normal respiratory effort is noted there is no evidence of wheezing rhonchi or rales CARDIOVASCULAR: Regular rate and rhythm noted there no murmurs rubs or gallops normal S1 normal S2. GASTROINTESTINAL: The abdomen is soft and nondistended. There is no specific tenderness guarding or rigidity. MUSCULOSKELETAL/EXTREMITIES: There is no evidence of gross deformity full range of motion is noted in the hips and shoulders. SKIN: There is no obvious evidence of any rash. There are no petechiae, pallor or cyanosis noted. NEUROLOGIC: Patient is awake alert and oriented x3. Strength was symmetric but diminished bilaterally. Patient speech was soft but understandable. MEDICAL DECISION MAKING: The patient is an 82-year-old female who presented to the emergency department for an evaluation of generalized weakness. The patient presented with a family member. The patient's been in our facility multiple times over the course of the last few weeks. She has not been able to get in with her family doctor. The patient was diagnosed with a urinary tract infection on her previous 2 visits. The patient states that she was not doing well and was started on Bactrim recently. Her creatinine was found to be elevated compared to previous. This could be from the Bactrim although she was diagnosed with an ESBL E. coli urine infection. She was treated with meropenem and IV fluids in the emergency department. She was also treated with magnesium replacement. The patient's urinalysis does not appear to be overwhelmingly consistent with a urinary tract infection at this time. The patient's LFTs were also elevated. For this reason ultrasound was obtained. There is no signs of any ductal dilatation and the patient has a history of cholecystectomy in the past. Given the patient's presentation as well as her worsening creatinine I will discuss her condition with the on-call [facility]ist. Triage Nursing notes reviewed. Prior medical records reviewed Vital Signs: reviewed and remarkable for no significant abnormalities Differential diagnosis: Infection, dehydration, metabolic abnormality, hypo/hyperglycemia, electrolyte disturbance, anemia, hypoxia, cardiac sources, intracerebral event, toxicologic, neurologic, as well as other pathologies. ER treatment provided: See below Diagnostics interpreted by me: ECG: EKG was obtained in the emergency department. My interpretation is atrial fibrillation at 76 bpm. There was inferior and lateral ST depressions with T wave inversions noted in the lateral leads. This was compared to a tracing from September 28, 2023. No significant changes were noted Cardiac Monitoring: An order was placed for continuous cardiac monitoring. The monitor shows a rate of 71 bpm with atrial fibrillation. Laboratory studies: As stated above and show below. Imaging studies: See below. Radiographic imaging was reviewed by myself Consultation(s): The [facility] Hospitalist, Dr. Coello was notified about the patient. He will evaluate the patient in the emergency department. Past Med/Surg History Problem List (Updated 10/15/23 @ 01:43 by Gómez Snider DO) History of ESBL E. coli infection (Acute) Abnormal LFTs (Acute) SOL (acute kidney injury) (Acute) Hypomagnesemia (Acute) Generalized weakness (Acute) Dysuria (Acute) UTI (urinary tract infection) (Acute) Hypomagnesemia (Acute) Generalized weakness (Acute) Elevated troponin (Acute) Chest pain (Acute) Decreased appetite Generalized weakness Elevated troponin Chronic anemia Chest pain (Acute) Abnormal EKG (Acute) Chronic RLQ pain Basal cell carcinoma of skin of ankle (Acute) Left knee DJD (Acute) Lichen sclerosus et atrophicus (Acute) Myelodysplastic syndrome (Acute) Right knee DJD (Acute) Urge and stress incontinence (Acute) Low back pain DVT prophylaxis Abnormal ECG Pernicious anemia DORIS on CPAP Hypothyroidism GERD (gastroesophageal reflux disease) Dyslipidemia DM type 2 (diabetes mellitus, type 2) CKD (chronic kidney disease), stage III (Acute) Anemia due to chronic kidney disease HTN (hypertension) Substernal chest pain (Acute) Chest pain (Acute) Medical History Hypertensive urgency IgM lambda paraproteinemia Surgical History History of gynecologic surgery anterior colporrhaphy History of hysteroscopy Status post tubal ligation History of total bilateral knee replacement (TKR) History of knee surgery History of appendectomy History of dilation and curettage S/P cholecystectomy Family History Mother , 85 Heart disease Diabetes Father , 65 Pancreatic cancer Sister Uterine cancer Breast cancer Denies family history of Ovarian cancer Colorectal cancer Social History Smoking Status: Former smoker Tobacco Type: Cigarettes Second Hand Exposure: No; Do You Dip or Chew Tobacco: No; Hx Alcohol Use: No Hx Substance Use: No Preferred Language: Syriac Communication Ability: Effective Pony Ride Attendant Required: No Beliefs That Will Affect Care: None marital status: Current Living Situation: Spouse Current Living Situation Comment: at home current occupational status: retired Feels Safe at Home: Yes Assistive Devices: None Allergies Allergies Allergy/AdvReac Type Severity Reaction Status Date / Time ciprofloxacin Allergy Intermediate RASH Verified 10/14/23 21:16 BENEDICT Inhibitors AdvReac Intermediate COUGH Verified 10/14/23 21:16 metformin AdvReac Intermediate GI SYMPTOMS Verified 10/14/23 21:16 Home Meds Home Medications Medication Instructions Recorded Confirmed levothyroxine 75 mcg tablet 75 mcg PO QAM 06/11/18 10/14/23 aspirin 81 mg tablet,delayed 81 mg PO HS 03/27/19 10/14/23 release dulaglutide 0.75 mg/0.5 mL 0.75 mg subcut WK 03/27/19 10/14/23 subcutaneous pen injector (Trulicity) epoetin lou 10,000 unit/mL 10,000 unit subcut MONTHLY PRN 03/27/19 10/14/23 injection solution (Procrit) WHEN NEEDED oxybutynin chloride 5 mg 5 mg PO HS 03/27/19 10/14/23 tablet,extended release 24 hr biotin 1 mg capsule 1 mg PO DAILY 05/26/22 10/14/23 nitroglycerin 0.6 mg sublingual 0.6 mg sublingual DIRECTED PRN 05/26/22 10/14/23 tablet (Nitrostat) Chest Pain patiromer calcium sorbitex 8.4 8.4 g PO Q OTHER DAY 05/26/22 10/14/23 gram oral powder packet (Veltassa) cholecalciferol (vitamin D3) 25 25 mcg PO DAILY 05/22/23 10/14/23 mcg (1,000 unit) tablet (Vitamin D3) ferrous sulfate 325 mg (65 mg 325 mg PO DAILY 05/22/23 10/14/23 iron) tablet (FeroSul) fluticasone propionate 50 2 spray intranasal DAILY PRN Nasal 05/22/23 10/14/23 mcg/actuation nasal Congestion spray,suspension food supplemt, lactose-reduced 1 ea PO DAILY 05/22/23 10/14/23 nystatin 100,000 unit/gram topical 1 applic topical TID PRN irritation 05/22/23 10/14/23 powder (Nyamyc) Saccharomyces boulardii 250 mg 250 mg PO DAILY 08/13/23 10/14/23 capsule (Florastor) psyllium husk 0.4 gram capsule 0.4 g PO Q OTHER DAY 08/13/23 10/14/23 (Metamucil) sulfamethoxazole 800 1 tab PO BID 10/14/23 10/14/23 mg-trimethoprim 160 mg tablet Previous Rx's Medication Instructions Recorded losartan 50 mg tablet 50 mg PO DAILY #30 tabs 08/15/23 Results & Data (ED) Vital Signs Vital Signs - 24 hr 10/14/23 20:07 10/14/23 20:28 10/14/23 20:50 Temperature 36.6 C Temperature Source Temporal Artery Scan Pulse Rate 72 73 73 Pulse Rhythm Regular Pulse Strength Normal Respiratory Rate 18 16 Respiratory Effort / Characteristics Non-Labored Spontaneous Respiratory Depth Normal Respiratory Pattern Regular Blood Pressure 154/79 H Blood Pressure Mean 104 Blood Pressure Position Sitting Pulse Oximetry 96 95 Oxygen Delivery Method Room Air Room Air Sepsis Recent Fever Within 48 Hours No Sepsis New/Unexplained Change in Mental Status N/A Sepsis Action Taken by Nursing No Action Required 10/14/23 20:58 10/15/23 01:06 Temperature Temperature Source Pulse Rate 71 Pulse Rhythm Pulse Strength Respiratory Rate Respiratory Effort / Characteristics Respiratory Depth Respiratory Pattern Blood Pressure Blood Pressure Mean Blood Pressure Position Pulse Oximetry 97 Oxygen Delivery Method Room Air Sepsis Recent Fever Within 48 Hours Sepsis New/Unexplained Change in Mental Status Sepsis Action Taken by Detention Medications Current Medication List: was personally reviewed by me Laboratory Data Attestation: I reviewed the patient's lab results. 10/14/23 21:21 10/14/23 21:21 Lab Results 10/14/23 10/14/23 Range/Units 21:21 21:40 WBC 6.15 (4.8-10.8) K/ul RBC 3.35 L (4.20-5.40) M/uL Hgb 10.0 L (12.0-16.0) g/dl Hct 29.7 L (37.0-47.0) % MCV 88.7 (80.0-100.0) fL MCH 29.9 (25.0-34.0) pg MCHC 33.7 (32.0-36.0) g/dL RDW Std Deviation 40.7 (36.4-46.3) fL RDW Coeff of Elpidio 12.5 (11.5-14.5) % Plt Count 196 (130-400) K/uL MPV 10.7 (9.4-12.4) fL Immature Gran % (Auto) 0.2 % Neut % (Auto) 68.3 % Lymph % (Auto) 15.0 % Rush % (Auto) 11.7 % Eos % (Auto) 4.1 % Baso % (Auto) 0.7 % Neut # (Auto) 4.21 (1.40-6.50) K/uL Lymph # (Auto) 0.92 L (1.20-3.40) K/uL Rush # (Auto) 0.72 H (0.11-0.59) K/uL Eos # (Auto) 0.25 (0.00-0.50) K/uL Baso # (Auto) 0.04 (0.00-0.20) K/uL Immature Gran # (Auto) 0.01 (0.01-0.20) K/uL PT 10.8 (9.0-12.0) Seconds INR 1.0 (0.9-1.1) APTT 23 (21-31) Seconds PTT Ratio 0.9 Sodium 135 L (136-145) mmol/L Potassium 4.6 (3.5-5.1) mmol/L Chloride 102 (98-107) mmol/L Carbon Dioxide 25 (21-32) mmol/L Anion Gap 8 (3-11) BUN 31 H (6-23) mg/dl Creatinine 2.03 H (0.6-1.2) mg/dl Est Cr Clr Drug Dosing 20.4 ml/min Est GFR ( Amer) 25.1 ml/min Est GFR (Non-Af Amer) 21.7 ml/min BUN/Creatinine Ratio 15.3 (10-20) Glucose 141 H (70-99(Fasting)) mg/dl Calcium 9.5 (8.6-10.3) mg/dl Magnesium 1.4 L (1.7-2.4) mg/dl Total Bilirubin 2.5 H (0.2-1.0) mg/dl Direct Bilirubin 1.1 H (0-0.2) mg/dl AST 226 H (13-39) U/L ALT 260 H (7-52) U/L Alkaline Phosphatase 72 (34-104) U/L Total Creatine Kinase 63 (26-192) U/L Troponin I High Sens 9.2 (0-14) pg/ml C-Reactive Protein < 0.50 (0-0.5) mg/dl Total Protein 6.8 (6.0-8.3) gm/dl Albumin 3.7 (3.4-5.0) gm/dl Globulin 3.1 (2.5-4.0) gm/dl Albumin/Globulin Ratio 1.2 (0.9-2) Procalcitonin 0.54 H (0-0.5) ng/ml TSH 0.586 (0.300-4.500) uIu/ml Urine Color Yellow Urine Appearance Clear (Clear) Urine pH 6.0 (4.5-7.5) Ur Specific [place] 1.011 (1.000-1.030) Urine Protein 1+ H (Negative) Urine Glucose (UA) Negative (Negative) Urine Ketones Negative (Negative) Urine Blood Negative (Negative) Urine Nitrite Negative (Negative) Urine Bilirubin Negative (Negative) Urine Urobilinogen Negative (Negative) Ur Leukocyte Esterase Negative (Negative) Urine WBC (Auto) 0-5 (0-5) /hpf Urine RBC (Auto) 0-2 (0-2) /hpf U Hyaline Cast (Auto) 0-2 (0-2) /lpf U Epithel Cells (Auto) 0-2 (0-2) /hpf Urine Bacteria (Auto) None Seen (None Seen) Administered Medications Discontinued Medications Sodium Chloride (Nss) 500 mls @ 999 mls/hr IV .Q31M SIGRID Stop: 10/14/23 21:00 Last Infusion: 10/14/23 22:44 Dose: Infused Documented By: Admin: 10/14/23 21:26 Dose: 999 mls/hr Documented By: CLAIRE Meropenem 500 mg/ Syringe 10 mls @ 2 mls/min IV ONE ONE; Protocol Stop: 10/14/23 20:34 Last Admin: 10/15/23 00:33 Dose: 2 mls/min Documented By: NELLY Magnesium Sulfate/Dextrose (Magnesium Sulfate / D5w) 1 gm in 100 mls @ 100 mls/hr IV Q1H [facility] Stop: 10/15/23 00:41 Last Admin: 10/15/23 00:59 Dose: 100 mls/hr Documented By: Infusion: 10/14/23 23:51 Dose: Infused Documented By: Admin: 10/14/23 22:51 Dose: 100 mls/hr Documented By: CLAIRE Sodium Chloride (Nss) 500 mls @ 999 mls/hr IV .Q31M ONE Stop: 10/14/23 23:12 Last Admin: 10/14/23 22:57 Dose: 999 mls/hr Documented By: CLAIRE Imaging Data Attestation: I personally reviewed and interpreted this imaging study as follows: My Impression: 1 view chest x-ray was obtained in the emergency department. My interpretation is no definite infiltrate or free air, final report pending. Radiologist's Impression: Gallbladder Ultrasound 10/14/23 22:41 Exam(s): US GALLBLADDER EXAM: US Abdomen Limited, Gallbladder CLINICAL HISTORY: Reason for exam: Abnormal LFT. TECHNIQUE: Real-time ultrasound of the right upper quadrant with image documentation. COMPARISON: No relevant prior studies available. FINDINGS: Liver: The liver is slightly echogenic but normal in size measuring 14. 2 cm. No focal liver lesion is seen. The portal vein is patent with normal hepatopetal flow. Gallbladder: The gallbladder is absent. Common bile duct: The common bile duct is nondilated measuring 5 mm. Pancreas: The visualized portion of the pancreas is unremarkable. Right kidney: The right kidney measures 10 cm craniocaudad. No hydronephrosis. The renal cortex is somewhat and diffusely. There is a 7 mm simple cyst in the right kidney. No follow-up is required. 1.3 cm simple cyst in the mid right kidney. No follow-up is required. IMPRESSION: Previous cholecystectomy. No biliary duct dilation is seen. Mild right renal atrophy. No hydronephrosis or mass. Possible mild fatty infiltration of the liver. No focal liver lesion is seen. Electronically signed by: Sree Coronado MD 10/15/23 01:34 AM Discharge Plan Visit Data Chief Complaint: Weakness Stated Complaint: WEAKNESS ED Provider: Gómez Snider Discharge Problem: Generalized weakness, Hypomagnesemia, SOL (acute kidney injury), Abnormal LFTs, History of ESBL E. coli infection Patient Disposition: Being Evaluated by Hospitalist Forms Stand Alone Forms: My [facility] Prescriptions Prescriptions: No Action levothyroxine 75 mcg tablet 75 mcg PO QAM aspirin 81 mg Tablet,Delayed Release (Dr/Ec) 81 mg PO HS oxybutynin chloride 5 mg tablet extended release 24hr 5 mg PO HS Procrit 10,000 unit/mL solution 10,000 unit subcut MONTHLY PRN (Reason: WHEN NEEDED) Trulicity 0.75 mg/0.5 mL pen injector 0.75 mg SUBCUT WK Rx Instructions: ADMINISTER EVERY MONDAY Veltassa 8.4 gram powder in packet 8.4 g PO Q OTHER DAY nitroglycerin [Nitrostat] 0.6 mg Tablet, Sublingual 0.6 mg sublingual DIRECTED PRN (Reason: Chest Pain) biotin 1 mg Capsule 1 mg PO DAILY ferrous sulfate [FeroSul] 325 mg (65 mg iron) tablet 325 mg PO DAILY nystatin [Nyamyc] 100,000 unit/gram powder 1 applic TOPICAL TID PRN (Reason: irritation) fluticasone propionate 50 mcg/actuation spray,suspension 2 spray INTRANASAL DAILY PRN (Reason: Nasal Congestion) food supplemt, lactose-reduced Liquid 1 ea PO DAILY cholecalciferol (vitamin D3) [Vitamin D3] 25 mcg (1,000 unit) Tablet 25 mcg PO DAILY psyllium husk [Metamucil] 0.4 gram Capsule 0.4 g PO Q OTHER DAY Saccharomyces boulardii [Florastor] 250 mg capsule 250 mg PO DAILY Rx Instructions: swallow whole losartan 50 mg tablet 50 mg PO DAILY Qty: 30 0RF sulfamethoxazole-trimethoprim 800-160 mg tablet 1 tab PO BID Rx Instructions: STARTED 10/12/23 FOR 7 DAYS Referrals Referrals: Milton Balderas MD [Primary Care Provider] -
[2023-10-14] MEDS: SODIUM CHLORIDE 0.9% 500 ML IV SCH (21:26)
[2023-10-14 21:38] LABS: Basophils # (auto) 0.04 K/uL (0.00-0.20); Basophils % (auto) 0.7 %; Eosinophils # (auto) 0.25 K/uL (0.00-0.50); Eosinophils % (auto) 4.1 %; Hematocrit (blood only) 29.7 % (37.0-47.0); Immature Granulocytes # (auto) 0.01 K/uL (0.01-0.20); Immature Granulocytes % (auto) 0.2 %; Lymphocytes # (auto) 0.92 K/uL (1.20-3.40); Mean Corpuscular Hemoglobin 29.9 pg (25.0-34.0); Mean Corpuscular Hgb Conc 33.7 g/dL (32.0-36.0); Mean Corpuscular Volume 88.7 fL (80.0-100.0); Mean Platelet Volume 10.7 fL (9.4-12.4); Monocytes # (auto) 0.72 K/uL (0.11-0.59); Monocytes % (auto) 11.7 %; Neutrophils # (auto) 4.21 K/uL (1.40-6.50); Neutrophils % (auto) 68.3 %; Platelet Count 196 K/uL (130-400); RDW Coefficient of Variation 12.5 % (11.5-14.5); RDW Standard Deviation 40.7 fL (36.4-46.3); Red Blood Count 3.35 M/uL (4.20-5.40); White Blood Count 6.15 K/ul (4.8-10.8)
[2023-10-14 21:53] LABS: Alanine Aminotransferase 260 U/L (7-52); Albumin Globulin Ratio 1.2 (0.9-2); Albumin Level 3.7 gm/dl (3.4-5.0); Alkaline Phosphatase 72 U/L (34-104); Anion Gap 8 (3-11); Aspartate Aminotransferase 226 U/L (13-39); Bilirubin,Total 2.5 mg/dl (0.2-1.0); Blood Urea Nitrogen 31 mg/dl (6-23); C Reactive Protein < 0.50 mg/dl (0-0.5); Calcium 9.5 mg/dl (8.6-10.3); Carbon Dioxide 25 mmol/L (21-32); Chloride 102 mmol/L (98-107); Creatine Kinase 63 U/L (26-192); Globulin 3.1 gm/dl (2.5-4.0); Glucose 141 mg/dl (70-99(Fasting)); Magnesium 1.4 mg/dl (1.7-2.4); Potassium 4.6 mmol/L (3.5-5.1); Sodium 135 mmol/L (136-145); Total Protein 6.8 gm/dl (6.0-8.3)
[2023-10-14 21:59] LABS: Troponin I High Sensitivity 9.2 pg/ml (0-14)
[2023-10-14 22:08] LABS: Thyroid Stimulating Hormone 0.586 uIu/ml (0.300-4.500)
[2023-10-14 22:12] LABS: Appearance Urine Clear (Clear); Bacteria Urine Automated None Seen (None Seen); Bilirubin Urine Negative (Negative); Blood Urine Negative (Negative); Cast Urine Automated 0-2 /lpf (0-2); Color Urine Yellow; Epithelial Cell Urine Auto 0-2 /hpf (0-2); Glucose Urine UA Negative (Negative); Ketones Urine Negative (Negative); Leukocyte Esterase Urine Negative (Negative); Nitrite Urine Negative (Negative); Protein Urine 1+ (Negative); RBC Urine Automated 0-2 /hpf (0-2); Specific Gravity Urine 1.011 (1.000-1.030); Urobilinogen Urine Negative (Negative); WBC Urine Automated 0-5 /hpf (0-5)
[2023-10-14 22:15] LABS: Partial Thromboplastin Ratio 0.9; Partial Thromboplastin Time 23 Seconds (21-31); Prothrombin Time 10.8 Seconds (9.0-12.0)
[2023-10-14] MEDS: MAGNESIUM SULFATE / D5W 1 GM/100 ML BAG IV SCH (22:51)
[2023-10-14 22:53] LABS: BUN Creatinine Ratio 15.3 (10-20); Creatinine Clr Calc Pharmacy 20.4 ml/min; Est GFR (African American) 25.1 ml/min; Est GFR (Non-African American) 21.7 ml/min
[2023-10-14] MEDS: SODIUM CHLORIDE 0.9% 500 ML IV ONE (22:57)
[2023-10-14 23:06] LABS: Bilirubin Direct 1.1 mg/dl (0-0.2)
[2023-10-15] MEDS: MEROPENEM 500 MG in SYRINGE 0 ML IV ONE (00:33)
--- NOTE | 2023-10-15 01:35 | Ultrasound Report ---
Exam(s): US GALLBLADDER EXAM: US Abdomen Limited, Gallbladder CLINICAL HISTORY: Reason for exam: Abnormal LFT. TECHNIQUE: Real-time ultrasound of the right upper quadrant with image documentation. COMPARISON: No relevant prior studies available. FINDINGS: Liver: The liver is slightly echogenic but normal in size measuring 14. 2 cm. No focal liver lesion is seen. The portal vein is patent with normal hepatopetal flow. Gallbladder: The gallbladder is absent. Common bile duct: The common bile duct is nondilated measuring 5 mm. Pancreas: The visualized portion of the pancreas is unremarkable. Right kidney: The right kidney measures 10 cm craniocaudad. No hydronephrosis. The renal cortex is somewhat and diffusely. There is a 7 mm simple cyst in the right kidney. No follow-up is required. 1.3 cm simple cyst in the mid right kidney. No follow-up is required. IMPRESSION: Previous cholecystectomy. No biliary duct dilation is seen. Mild right renal atrophy. No hydronephrosis or mass. Possible mild fatty infiltration of the liver. No focal liver lesion is seen. Electronically signed by: Sree Coronado MD 10/15/23 01:34 AM
--- NOTE | 2023-10-15 03:32 | History & Physical Report ---
Date of Service October 15, 2023 Assessment & Plan (1) SOL (acute kidney injury): Plan: 88-year-old female with past medical History significant for type 2 diabetes, diabetic neuropathy, hyperlipidemia, hypothyroidism, obstructive sleep apnea on CPAP, CKD stage IV, hypertension, paroxysmal supraventricular tachycardia, GERD, B12 deficiency, kyphosis, mild dementia, anemia of chronic kidney disease, pernicious anemia, history of COVID, presents with weakness and found to have elevated LFTs And SOL. Patient was here in September 28, 2023 with weakness and UA showed possible UTI and was discharged on Omnicef. Again, came to ER on October 10 with dysuria for 3 days .Was also seen by PCP before came to the ER. And she was discharged on Keflex but urine culture came back with ESBL. She was called back and prescribed Bactrim as it was sensitive to Bactrim. But patient comes back today because of generalized weakness, poor appetite ,difficulty ambulation and not feeling well. In the ER labs showed SOL and increased LFTs. Today's urinalysis was negative. Er empirically gave iv meropenem. Patient currently resting comfortably. Hemodynamically stable. Denies any fevers. No chest pain or shortness of breath. No cough. No headache. No runny nose or sore throat. No abdominal pain. Somewhat constipated. Micturating okay. Lives with her . SOL on CKD stage IV baseline creatinine around 1.4 presented creatinine of 2 possible from Bactrim and UTI will hold losartan gentle fluids close monitor elevated LFTs hyperbilirubinemia and elevated AST and ALT probably from Bactrim gallbladder ultrasound was okay we will follow repeat labs if worsening will consult GI ESBL UTI on cultures drawn October 10 currently UA is negative but will follow urine cultures procalcitonin elevated ER empirically give meropenem will continue with Invanz renally dose hypomagnesia replaced follow labs obstructive sleep apnea on CPAP nightly hypertension holding losartan for sol IV hydralazine as needed for now anemia of CKD hemoglobin 10 will follow labs diabetes insulin sliding scale will follow HbA1c levels will monitor hypothyroidism on Synthyroid DVT prophylaxis heparin subcu disposition med/telemetry full code History of Present Illness Chief Complaint: weakness Primary Care Provider: Milton Balderas MD 88-year-old female with past medical History significant for type 2 diabetes, diabetic neuropathy, hyperlipidemia, hypothyroidism, obstructive sleep apnea on CPAP, CKD stage IV, hypertension, paroxysmal supraventricular tachycardia, GERD, B12 deficiency, kyphosis, mild dementia, anemia of chronic kidney disease, pernicious anemia, history of COVID, presents with weakness and found to have elevated LFTs And SOL. Patient was here in September 28, 2023 with weakness and UA showed possible UTI and was discharged on Omnicef. Again, came to ER on October 10 with dysuria for 3 days .Was also seen by PCP before came to the ER. And she was discharged on Keflex but urine culture came back with ESBL. She was called back and prescribed Bactrim as it was sensitive to Bactrim. But patient comes back today because of generalized weakness, poor appetite ,difficulty ambulation and not feeling well. In the ER labs showed SOL and increased LFTs. Today's urinalysis was negative. Er empirically gave iv meropenem. Patient currently resting comfortably. Hemodynamically stable. Denies any fevers. No chest pain or shortness of breath. No cough. No headache. No runny nose or sore throat. No abdominal pain. Somewhat constipated. Micturating okay. Lives with her . Past medical history. As mentioned above Past surgical history. Bilateral knee arthroplasty. Colonoscopy. Colonoscopy biopsy. Dilatation and curettage. EGD. EGD with biopsy. Appendectomy .cholecystectomy. Social history. . Quit smoking 1979. No alcohol use. No drug use. Family history. Mother had Alzheimer's disease. Father had pancreatic cancer. Brother had Throat cancer. sister had breast cancer. Allergies Allergy/AdvReac Type Severity Reaction Status Date / Time ciprofloxacin Allergy Intermediate RASH Verified 10/14/23 21:16 BENEDICT Inhibitors AdvReac Intermediate COUGH Verified 10/14/23 21:16 metformin AdvReac Intermediate GI SYMPTOMS Verified 10/14/23 21:16 Home Medications Medication Instructions Recorded Confirmed Type levothyroxine 75 mcg tablet 75 mcg PO QAM 06/11/18 10/14/23 History aspirin 81 mg tablet,delayed 81 mg PO HS 03/27/19 10/14/23 History release dulaglutide 0.75 mg/0.5 mL 0.75 mg subcut WK 03/27/19 10/14/23 History subcutaneous pen injector (Trulicity) epoetin lou 10,000 unit/mL 10,000 unit subcut MONTHLY PRN 03/27/19 10/14/23 History injection solution (Procrit) WHEN NEEDED oxybutynin chloride 5 mg 5 mg PO HS 03/27/19 10/14/23 History tablet,extended release 24 hr biotin 1 mg capsule 1 mg PO DAILY 05/26/22 10/14/23 History nitroglycerin 0.6 mg sublingual 0.6 mg sublingual DIRECTED PRN 05/26/22 10/14/23 History tablet (Nitrostat) Chest Pain patiromer calcium sorbitex 8.4 8.4 g PO Q OTHER DAY 05/26/22 10/14/23 History gram oral powder packet (Veltassa) cholecalciferol (vitamin D3) 25 25 mcg PO DAILY 05/22/23 10/14/23 History mcg (1,000 unit) tablet (Vitamin D3) ferrous sulfate 325 mg (65 mg 325 mg PO DAILY 05/22/23 10/14/23 History iron) tablet (FeroSul) fluticasone propionate 50 2 spray intranasal DAILY PRN Nasal 05/22/23 10/14/23 History mcg/actuation nasal Congestion spray,suspension food supplemt, lactose-reduced 1 ea PO DAILY 05/22/23 10/14/23 History nystatin 100,000 unit/gram topical 1 applic topical TID PRN irritation 05/22/23 10/14/23 History powder (Nyamyc) Saccharomyces boulardii 250 mg 250 mg PO DAILY 08/13/23 10/14/23 History capsule (Florastor) psyllium husk 0.4 gram capsule 0.4 g PO Q OTHER DAY 08/13/23 10/14/23 History (Metamucil) losartan 50 mg tablet 50 mg PO DAILY #30 tabs 08/15/23 10/14/23 Rx sulfamethoxazole 800 1 tab PO BID 10/14/23 10/14/23 History mg-trimethoprim 160 mg tablet Past Med/Surg History Problem List (Updated 10/15/23 @ 01:43 by Gómez Snider DO) History of ESBL E. coli infection (Acute) Abnormal LFTs (Acute) SOL (acute kidney injury) (Acute) Hypomagnesemia (Acute) Generalized weakness (Acute) Dysuria (Acute) UTI (urinary tract infection) (Acute) Hypomagnesemia (Acute) Generalized weakness (Acute) Elevated troponin (Acute) Chest pain (Acute) Decreased appetite Generalized weakness Elevated troponin Chronic anemia Chest pain (Acute) Abnormal EKG (Acute) Chronic RLQ pain Basal cell carcinoma of skin of ankle (Acute) Left knee DJD (Acute) Lichen sclerosus et atrophicus (Acute) Myelodysplastic syndrome (Acute) Right knee DJD (Acute) Urge and stress incontinence (Acute) Low back pain DVT prophylaxis Abnormal ECG Pernicious anemia DORIS on CPAP Hypothyroidism GERD (gastroesophageal reflux disease) Dyslipidemia DM type 2 (diabetes mellitus, type 2) CKD (chronic kidney disease), stage III (Acute) Anemia due to chronic kidney disease HTN (hypertension) Substernal chest pain (Acute) Chest pain (Acute) Medical History Hypertensive urgency IgM lambda paraproteinemia Surgical History History of gynecologic surgery anterior colporrhaphy History of hysteroscopy Status post tubal ligation History of total bilateral knee replacement (TKR) History of knee surgery History of appendectomy History of dilation and curettage S/P cholecystectomy Family History Mother , 85 Heart disease Diabetes Father , 65 Pancreatic cancer Sister Uterine cancer Breast cancer Denies family history of Ovarian cancer Colorectal cancer Social History Smoking Status: Former smoker Tobacco Type: Cigarettes Second Hand Exposure: No; Do You Dip or Chew Tobacco: No; Hx Alcohol Use: No Hx Substance Use: No Preferred Language: Sami Communication Ability: Effective Log Buncher Required: No Beliefs That Will Affect Care: None marital status: Current Living Situation: Spouse Current Living Situation Comment: at home current occupational status: retired Feels Safe at Home: Yes Assistive Devices: None Review of Systems Review of Systems: All systems reviewed & are unremarkable except as noted in HPI & below Physical Exam Physical Exam: General- Not in distress Head- atraumatic Eyes- PERRL. ENT- oropharynx clear Neck- supple, no JVD. Lungs- clear to auscultation no wheezing or crackles. Heart- regular rate and rhythm; no murmur, no gallop. Abdomen- normal bowel sounds, soft, nontender, no distension Extremities- no pretibial edema, no erythema seen Neuro- alert, oriented PERRL, EOMI; no facial palsy; no dysarthria; moves extremities Results & Data Results & Data Vital Signs (Past 12 Hours) Vital Signs Temp Pulse Resp BP Pulse Ox O2 Del Method 10/15/23 01:06 71 10/14/23 20:58 97 Room Air 10/14/23 20:50 73 10/14/23 20:28 73 16 95 Room Air 10/14/23 20:07 36.6 C 72 18 154/79 H 96 Room Air Diagnostic Findings Laboratory Results WBC 6.15 K/ul (4.8-10.8) 10/14/23 21:21 RBC 3.35 M/uL (4.20-5.40) L 10/14/23 21:21 Hgb 10.0 g/dl (12.0-16.0) L 10/14/23 21:21 Hct 29.7 % (37.0-47.0) L 10/14/23 21:21 MCV 88.7 fL (80.0-100.0) 10/14/23 21:21 MCH 29.9 pg (25.0-34.0) 10/14/23 21:21 MCHC 33.7 g/dL (32.0-36.0) 10/14/23 21:21 RDW Std Deviation 40.7 fL (36.4-46.3) 10/14/23 21:21 RDW Coeff of Elpidio 12.5 % (11.5-14.5) 10/14/23 21:21 Plt Count 196 K/uL (130-400) 10/14/23 21:21 MPV 10.7 fL (9.4-12.4) 10/14/23 21:21 Immature Gran % (Auto) 0.2 % 10/14/23 21:21 Neut % (Auto) 68.3 % 10/14/23 21:21 Lymph % (Auto) 15.0 % 10/14/23 21:21 [place] % (Auto) 11.7 % 10/14/23 21:21 Eos % (Auto) 4.1 % 10/14/23 21:21 Baso % (Auto) 0.7 % 10/14/23 21:21 Neut # (Auto) 4.21 K/uL (1.40-6.50) 10/14/23 21:21 Lymph # (Auto) 0.92 K/uL (1.20-3.40) L 10/14/23 21:21 [place] # (Auto) 0.72 K/uL (0.11-0.59) H 10/14/23 21:21 Eos # (Auto) 0.25 K/uL (0.00-0.50) 10/14/23 21:21 Baso # (Auto) 0.04 K/uL (0.00-0.20) 10/14/23 21:21 Immature Gran # (Auto) 0.01 K/uL (0.01-0.20) 10/14/23 21:21 PT 10.8 Seconds (9.0-12.0) 10/14/23 21:21 INR 1.0 (0.9-1.1) 10/14/23 21:21 APTT 23 Seconds (21-31) 10/14/23 21:21 PTT Ratio 0.9 10/14/23 21:21 Sodium 135 mmol/L (136-145) L 10/14/23 21:21 Potassium 4.6 mmol/L (3.5-5.1) 10/14/23 21:21 Chloride 102 mmol/L (98-107) 10/14/23 21:21 Carbon Dioxide 25 mmol/L (21-32) 10/14/23 21:21 Anion Gap 8 (3-11) 10/14/23 21:21 BUN 31 mg/dl (6-23) H 10/14/23 21:21 Creatinine 2.03 mg/dl (0.6-1.2) H 10/14/23 21:21 Est Cr Clr Drug Dosing 20.4 ml/min 10/14/23 21:21 Est GFR ( Amer) 25.1 ml/min 10/14/23 21:21 Est GFR (Non-Af Amer) 21.7 ml/min 10/14/23 21:21 BUN/Creatinine Ratio 15.3 (10-20) 10/14/23 21:21 Glucose 141 mg/dl (70-99(Fasting)) H 10/14/23 21:21 Calcium 9.5 mg/dl (8.6-10.3) 10/14/23 21:21 Magnesium 1.4 mg/dl (1.7-2.4) L 10/14/23 21:21 Total Bilirubin 2.5 mg/dl (0.2-1.0) H 10/14/23 21:21 Direct Bilirubin 1.1 mg/dl (0-0.2) H 10/14/23 21:21 AST 226 U/L (13-39) H 10/14/23 21:21 ALT 260 U/L (7-52) H 10/14/23 21:21 Alkaline Phosphatase 72 U/L (34-104) 10/14/23 21:21 Total Creatine Kinase 63 U/L (26-192) 10/14/23 21:21 Troponin I High Sens 9.2 pg/ml (0-14) 10/14/23 21:21 C-Reactive Protein < 0.50 mg/dl (0-0.5) 10/14/23 21:21 Total Protein 6.8 gm/dl (6.0-8.3) 10/14/23 21:21 Albumin 3.7 gm/dl (3.4-5.0) 10/14/23 21:21 Globulin 3.1 gm/dl (2.5-4.0) 10/14/23 21:21 Albumin/Globulin Ratio 1.2 (0.9-2) 10/14/23 21:21 Procalcitonin 0.54 ng/ml (0-0.5) H 10/14/23 21:21 TSH 0.586 uIu/ml (0.300-4.500) 10/14/23 21:21 Urine Color Yellow 10/14/23 21:40 Urine Appearance Clear (Clear) 10/14/23 21:40 Urine pH 6.0 (4.5-7.5) 10/14/23 21:40 Ur Specific [place] 1.011 (1.000-1.030) 10/14/23 21:40 Urine Protein 1+ (Negative) H 10/14/23 21:40 Urine Glucose (UA) Negative (Negative) 10/14/23 21:40 Urine Ketones Negative (Negative) 10/14/23 21:40 Urine Blood Negative (Negative) 10/14/23 21:40 Urine Nitrite Negative (Negative) 10/14/23 21:40 Urine Bilirubin Negative (Negative) 10/14/23 21:40 Urine Urobilinogen Negative (Negative) 10/14/23 21:40 Ur Leukocyte Esterase Negative (Negative) 10/14/23 21:40 Urine WBC (Auto) 0-5 /hpf (0-5) 10/14/23 21:40 Urine RBC (Auto) 0-2 /hpf (0-2) 10/14/23 21:40 U Hyaline Cast (Auto) 0-2 /lpf (0-2) 10/14/23 21:40 U Epithel Cells (Auto) 0-2 /hpf (0-2) 10/14/23 21:40 Urine Bacteria (Auto) None Seen (None Seen) 10/14/23 21:40 Impressions Gallbladder Ultrasound 10/14/23 22:41 Exam(s): US GALLBLADDER EXAM: US Abdomen Limited, Gallbladder CLINICAL HISTORY: Reason for exam: Abnormal LFT. TECHNIQUE: Real-time ultrasound of the right upper quadrant with image documentation. COMPARISON: No relevant prior studies available. FINDINGS: Liver: The liver is slightly echogenic but normal in size measuring 14. 2 cm. No focal liver lesion is seen. The portal vein is patent with normal hepatopetal flow. Gallbladder: The gallbladder is absent. Common bile duct: The common bile duct is nondilated measuring 5 mm. Pancreas: The visualized portion of the pancreas is unremarkable. Right kidney: The right kidney measures 10 cm craniocaudad. No hydronephrosis. The renal cortex is somewhat and diffusely. There is a 7 mm simple cyst in the right kidney. No follow-up is required. 1.3 cm simple cyst in the mid right kidney. No follow-up is required. IMPRESSION: Previous cholecystectomy. No biliary duct dilation is seen. Mild right renal atrophy. No hydronephrosis or mass. Possible mild fatty infiltration of the liver. No focal liver lesion is seen. Electronically signed by: Sree Coronado MD 10/15/23 01:34 AM ECG Additional Comments: ECG. Atrial fibrillation rate of 76. ST and T wave abnormality lateral leads. Code Status & VTE Plan VTE Prophylaxis Plan VTE Prophylaxis will be ordered: Yes
[2023-10-15] MEDS ORDERED: GLUCAGON FOR INJ 1 MG VIAL SQ PRN (04:49)
[2023-10-15] MEDS ORDERED: CARBOHYDRATES FOR HYPOGLYCEMIA PO PRN (04:49)
[2023-10-15] MEDS ORDERED: FLUTICASONE PROPIONATE NA SPR 16 GM BTL PRN (04:49)
[2023-10-15] MEDS ORDERED: NITROGLYCERIN SL 0.4 MG/TAB TAB SL PRN (04:49)
[2023-10-15] MEDS ORDERED: NYSTATIN POWDER 15GM BTL EXT PRN (04:49)
[2023-10-15] MEDS ORDERED: GLUCOSE 40% GEL 15 GM TUBE PO PRN (04:49)
[2023-10-15] MEDS ORDERED: GLUCOSE 10 TAB/TUBE PO PRN (04:49)
[2023-10-15] MEDS ORDERED: DEXTROSE 50% 50 ML SYRINGE IV PRN (04:49)
[2023-10-15] MEDS ORDERED: POLYETHYLENE (MIRALAX) 17 GM PACK PO PRN (04:49)
[2023-10-15] MEDS ORDERED: hydrALAZINE HCL 20 MG/ML VIAL IV PRN (04:49)
[2023-10-15] MEDS: SODIUM CHLORIDE 0.9% 1,000 ML IV SCH (05:08)
[2023-10-15 06:35] LABS: Basophils # (auto) 0.04 K/uL (0.00-0.20); Basophils % (auto) 0.6 %; Eosinophils # (auto) 0.29 K/uL (0.00-0.50); Eosinophils % (auto) 4.6 %; Hematocrit (blood only) 29.8 % (37.0-47.0); Hemoglobin 9.9 g/dl (12.0-16.0); Immature Granulocytes # (auto) 0.02 K/uL (0.01-0.20); Immature Granulocytes % (auto) 0.3 %; Lymphocytes % (auto) 17.3 %; Mean Corpuscular Hemoglobin 29.6 pg (25.0-34.0); Mean Corpuscular Hgb Conc 33.2 g/dL (32.0-36.0); Mean Platelet Volume 10.8 fL (9.4-12.4); Monocytes # (auto) 0.82 K/uL (0.11-0.59); Monocytes % (auto) 12.9 %; Neutrophils # (auto) 4.09 K/uL (1.40-6.50); Neutrophils % (auto) 64.3 %; Platelet Count 193 K/uL (130-400); RDW Coefficient of Variation 12.6 % (11.5-14.5); RDW Standard Deviation 41.1 fL (36.4-46.3); Red Blood Count 3.35 M/uL (4.20-5.40); White Blood Count 6.36 K/ul (4.8-10.8)
[2023-10-15] MEDS: LEVOTHYROXINE SODIUM 75 MCG TABLET PO SCH (06:47)
[2023-10-15 06:50] LABS: Albumin Level 3.6 gm/dl (3.4-5.0); BUN Creatinine Ratio 14.9 (10-20); Bilirubin Direct 1.5 mg/dl (0-0.2); Bilirubin,Total 3.2 mg/dl (0.2-1.0); Calcium 9.3 mg/dl (8.6-10.3); Creatinine Clr Calc Pharmacy 23.7 ml/min; Est GFR (Non-African American) 25.9 ml/min; Magnesium 2.1 mg/dl (1.7-2.4); Phosphorus 2.3 mg/dl (2.5-4.9); Potassium 4.3 mmol/L (3.5-5.1); Total Protein 6.5 gm/dl (6.0-8.3)
--- NOTE | 2023-10-15 07:23 | Electrocardiogram Report ---
Test Reason : Blood Pressure : / mmHG Vent. Rate : 076 BPM Atrial Rate : 000 BPM P-R Int : 000 ms QRS Dur : 086 ms QT Int : 394 ms P-R-T Axes : 000 023 163 degrees QTc Int : 443 ms Sinus rhythm with PACs Abnormal ECG When compared with ECG of 28-SEP-2023 12:37, T wave inversion no longer evident in Inferior leads Confirmed by Yovany Kruger ([id number]) on 10/15/2023 7:23:15 AM Referred By: REFERRED SELF Confirmed By:Beau Kruger
--- NOTE | 2023-10-15 08:00 | XRay Report ---
SINGLE VIEW CHEST CLINICAL HISTORY: Generalized weakness. FINDINGS: An AP, portable, upright chest radiograph is compared to study dated 09/28/2023. The heart i s enlarged noting atherosclerotic calcification of the thoracic aorta. The pulmonary vasculature is n oncongested. Chronic interstitial thickening similar to previous. There is bibasilar scarring/atelect asis. The lungs and pleural spaces are otherwise clear. No pneumothorax is seen. The skeletal structu res are osteopenic. The bony thorax is grossly intact. Arthritic change is noted in the right shoulde r. IMPRESSION: Cardiomegaly with no active disease in the chest. ACT 112: Negative or not required by law. Electronically signed by: Garry Vang M.D. 10/15/2023 7:59 AM
[2023-10-15] MEDS: ERTAPENEM SODIUM 500 MG in SYRINGE 0 ML IV SCH (08:30)
[2023-10-15] MEDS: CHOLECALCIFEROL 25 MCG (1000 UNITS) TAB PO SCH (08:32)
[2023-10-15] MEDS: SACCHAROMYCES BOULARDII 250 MG CAP PO SCH (08:32)
[2023-10-15] MEDS: FERROUS SULFATE 325 MG TAB PO SCH (08:32)
[2023-10-15] MEDS: HEPARIN SOD 5,000 UNIT/0.5 ML VIAL SQ SCH (08:34)
[2023-10-15] MEDS: PSYLLIUM or GUAR GUM FIBER 4GM PACKET PO SCH (08:36)
[2023-10-15] MEDS: INSULIN ASPART PER UNIT CHARGE SC SCH (09:34)
[2023-10-15] MEDS: ONDANSETRON INJ 2 MG/ML 2 ML VIAL IV PRN (09:42)
[2023-10-15] MEDS: PATIROMER CALCIUM SORBITEX 8.4 GM PACK PO SCH (11:41)
--- NOTE | 2023-10-15 15:00 | Communication Note ---
Date of Service: October 15, 2023 Patient seen and examined at bedside. She is lying on the bed comfortably; endorses nausea and had episode of vomiting. Her is at bedside as well. On physical exam; Constitutional: Alert oriented x 3; not in distress. Respiratory: normal respiratory effort, lungs clear to auscultation, no wheeze, rales, rhonchi. Normal insp/exp effort, no accessory muscle use Cardiovascular: RRR, no murmur, no edema Vessels: no JVD or carotid bruit Chest: normal inspection of chest Abdomen: normal bowel sounds, soft, nontender, no hepatosplenomegaly Musculoskeletal: no cyanosis or clubbing, extremities motor strength 5/5 Skin: no rashes, warm and dry normal turgor Neurologic: PERRL, EOMI, accommodation nl, no face palsy, no dysarthria CN's II- XI intact bilaterally and moves all extremities Psychiatric: A+Ox3, euthymic affect Assessment/plan SOL on CKD Elevated LFTs Likely related with Bactrim use Patient was recently discharged on Bactrim; presents with weakness. Creatinine up trended from baseline to 2. LFTs elevated Gallbladder ultrasound shows possible mild fatty infiltration of the liver. Currently on ertapenem. Avoid nephrotoxic agent CMP in a.m. Continue other home meds Full progress note to follow tomorrow Please note the above document was generated using voice recognition software. It may contain grammatical, syntax or spelling errors. Any formal questions or concerns about the content, text or information contained within the body of this dictation should be directly addressed to the provider for clarification
[2023-10-15] MEDS: ASPIRIN 81 MG ECTAB PO SCH (20:58)
[2023-10-16 06:32] LABS: Basophils # (auto) 0.04 K/uL (0.00-0.20); Basophils % (auto) 0.7 %; Eosinophils # (auto) 0.36 K/uL (0.00-0.50); Eosinophils % (auto) 6.5 %; Hemoglobin 9.1 g/dl (12.0-16.0); Immature Granulocytes # (auto) 0.01 K/uL (0.01-0.20); Immature Granulocytes % (auto) 0.2 %; Lymphocytes # (auto) 1.26 K/uL (1.20-3.40); Lymphocytes % (auto) 22.8 %; Mean Corpuscular Hemoglobin 29.6 pg (25.0-34.0); Mean Corpuscular Hgb Conc 32.5 g/dL (32.0-36.0); Mean Corpuscular Volume 91.2 fL (80.0-100.0); Monocytes # (auto) 0.83 K/uL (0.11-0.59); Neutrophils # (auto) 3.02 K/uL (1.40-6.50); Neutrophils % (auto) 54.8 %; Platelet Count 178 K/uL (130-400); RDW Coefficient of Variation 12.7 % (11.5-14.5); Red Blood Count 3.07 M/uL (4.20-5.40); White Blood Count 5.52 K/ul (4.8-10.8)
[2023-10-16 06:47] LABS: Albumin Globulin Ratio 1.1 (0.9-2); Albumin Level 3.2 gm/dl (3.4-5.0); BUN Creatinine Ratio 12.6 (10-20); Bilirubin,Total 1.9 mg/dl (0.2-1.0); Calcium 8.9 mg/dl (8.6-10.3); Creatinine Clr Calc Pharmacy 20.8 ml/min; Est GFR (African American) 25.7 ml/min; Est GFR (Non-African American) 22.2 ml/min; Globulin 2.8 gm/dl (2.5-4.0)
[2023-10-16 08:01] LABS: Estimated Average Glucose 148 mg/dl; Hemoglobin A1C 6.8 % (4.5-5.6)
--- NOTE | 2023-10-16 15:17 | Hospitalist Progress Note ---
Date of Service October 16, 2023 Assessment & Plan (1) SOL (acute kidney injury): Plan: 88-year-old female with past medical History significant for type 2 diabetes, diabetic neuropathy, hyperlipidemia, hypothyroidism, obstructive sleep apnea on CPAP, CKD stage IV, hypertension, paroxysmal supraventricular tachycardia, GERD, B12 deficiency, kyphosis, mild dementia, anemia of chronic kidney disease, pernicious anemia, history of COVID, presents with weakness and found to have elevated LFTs and SOL. Patient was recently treated for UTI with Bactrim. SOL on CKD stage IV baseline creatinine around 1.4 to 1.7 presented creatinine of 2 possible from Bactrim and UTI will hold losartan continue iv fluids Elevated LFTs hyperbilirubinemia and elevated AST and ALT probably from Bactrim gallbladder ultrasound didn't show acute abnormality Liver enzymes trending down ESBL UTI on cultures drawn October 10 currently UA is negative but will follow urine cultures procalcitonin elevated ER empirically give meropenem will continue with Invanz renally dose Hypomagnesia replaced obstructive sleep apnea on CPAP nightly Hypertension holding losartan for sol Anemia of CKD Hb near baseline Type 2 Diabetes Mellitus insulin sliding scale HbA1c- 6.8% will monitor hypothyroidism on Synthyroid DVT prophylaxis heparin subcu disposition med/telemetry full code Time spent evaluating patient, direct bedside care, chart review, placing orders, interpretation of diagnostic studies, discussion with consultants, patient, and family members, as well as other required patient management activities is 50 minutes Please note the above document was generated using voice recognition software. It may contain grammatical, syntax or spelling errors. Any formal questions or concerns about the content, text or information contained within the body of this dictation should be directly addressed to the provider for clarification Admission and Anticipated Discharge Date Admission Date: October 15, 2023 Subjective Patient seen and examined at bedside. Comfortable; not in distress. Denies fever, chills, chest pain, shortness of breath, abdominal pain or urinary symptoms. No significant overnight events Review of Systems Review of Systems: All systems reviewed & are unremarkable except as noted in Subjective Physical Exam Physical Exam: Constitutional: Alert oriented x 3; not in distress. Respiratory: normal respiratory effort, lungs clear to auscultation, no wheeze, rales, rhonchi. Normal insp/exp effort, no accessory muscle use Cardiovascular: RRR, no murmur, no edema Vessels: no JVD or carotid bruit Chest: normal inspection of chest Abdomen: normal bowel sounds, soft, nontender, no hepatosplenomegaly Musculoskeletal: no cyanosis or clubbing, extremities motor strength 5/5 Skin: no rashes, warm and dry normal turgor Neurologic: PERRL, EOMI, accommodation nl, no face palsy, no dysarthria CN's II- XI intact bilaterally and moves all extremities Psychiatric: A+Ox3, euthymic affect Results & Data Results & Data Vital Signs (Past 12 Hours) Vital Signs Temp Pulse Pulse Resp BP Pulse Ox O2 Del Method 10/16/23 11:47 36.7 C 76 20 120/68 91 Room Air 10/16/23 07:44 36.8 C 62 18 132/74 93 Room Air 10/16/23 07:17 Room Air 10/16/23 07:04 65 10/16/23 03:25 37.1 C 62 18 124/63 92 Room Air
[2023-10-16] MEDS: LACTATED RINGER'S 1,000 ML IV SCH (15:23)
[2023-10-17 07:21] LABS: Basophils # (auto) 0.06 K/uL (0.00-0.20); Eosinophils # (auto) 0.41 K/uL (0.00-0.50); Eosinophils % (auto) 6.5 %; Hematocrit (blood only) 33.6 % (37.0-47.0); Hemoglobin 11.1 g/dl (12.0-16.0); Immature Granulocytes # (auto) 0.01 K/uL (0.01-0.20); Immature Granulocytes % (auto) 0.2 %; Lymphocytes # (auto) 1.99 K/uL (1.20-3.40); Lymphocytes % (auto) 31.8 %; Mean Corpuscular Hemoglobin 30.1 pg (25.0-34.0); Mean Corpuscular Volume 91.1 fL (80.0-100.0); Mean Platelet Volume 10.9 fL (9.4-12.4); Monocytes # (auto) 0.75 K/uL (0.11-0.59); Neutrophils # (auto) 3.04 K/uL (1.40-6.50); Neutrophils % (auto) 48.5 %; Platelet Count 230 K/uL (130-400); RDW Coefficient of Variation 12.5 % (11.5-14.5); RDW Standard Deviation 41.1 fL (36.4-46.3); Red Blood Count 3.69 M/uL (4.20-5.40); White Blood Count 6.26 K/ul (4.8-10.8)
[2023-10-17 07:40] LABS: Albumin Globulin Ratio 1.2 (0.9-2); Albumin Level 3.8 gm/dl (3.4-5.0); BUN Creatinine Ratio 14.8 (10-20); Bilirubin,Total 1.4 mg/dl (0.2-1.0); Calcium 9.7 mg/dl (8.6-10.3); Creatinine Clr Calc Pharmacy 24.5 ml/min; Est GFR (African American) 31.3 ml/min; Globulin 3.3 gm/dl (2.5-4.0); Potassium 4.7 mmol/L (3.5-5.1); Total Protein 7.1 gm/dl (6.0-8.3)
--- NOTE | 2023-10-17 14:53 | Discharge Summary ---
Date of Service October 17, 2023 Admission HPI Per Admitting Provider 88-year-old female with past medical History significant for type 2 diabetes, diabetic neuropathy, hyperlipidemia, hypothyroidism, obstructive sleep apnea on CPAP, CKD stage IV, hypertension, paroxysmal supraventricular tachycardia, GERD, B12 deficiency, kyphosis, mild dementia, anemia of chronic kidney disease, pernicious anemia, history of COVID, presents with weakness and found to have elevated LFTs And SOL. Patient was here in September 28, 2023 with weakness and UA showed possible UTI and was discharged on Omnicef. Again, came to ER on October 10 with dysuria for 3 days .Was also seen by PCP before came to the ER. And she was discharged on Keflex but urine culture came back with ESBL. She was called back and prescribed Bactrim as it was sensitive to Bactrim. But patient comes back today because of generalized weakness, poor appetite ,difficulty ambulation and not feeling well. In the ER labs showed SOL and increased LFTs. Today's urinalysis was negative. Er empirically gave iv meropenem. Patient currently resting comfortably. Hemodynamically stable. Denies any fevers. No chest pain or shortness of breath. No cough. No headache. No runny nose or sore throat. No abdominal pain. Somewhat constipated. Micturating okay. Lives with her . Past medical history. As mentioned above Past surgical history. Bilateral knee arthroplasty. Colonoscopy. Colonoscopy biopsy. Dilatation and curettage. EGD. EGD with biopsy. Appendectomy .cholecystectomy. Social history. . Quit smoking 1979. No alcohol use. No drug use. Family history. Mother had Alzheimer's disease. Father had pancreatic cancer. Brother had Throat cancer. sister had breast cancer. Admission Exam Per Admitting Provider General- Not in distress Head- atraumatic Eyes- PERRL. ENT- oropharynx clear Neck- supple, no JVD. Lungs- clear to auscultation no wheezing or crackles. Heart- regular rate and rhythm; no murmur, no gallop. Abdomen- normal bowel sounds, soft, nontender, no distension Extremities- no pretibial edema, no erythema seen Neuro- alert, oriented PERRL, EOMI; no facial palsy; no dysarthria; moves extremities Principal Diagnosis Acute kidney injury Elevated liver enzymes Likely secondary to Bactrim use Discharge Exam Constitutional: Alert oriented x 3; not in distress. Respiratory: normal respiratory effort, lungs clear to auscultation, no wheeze, rales, rhonchi. Normal insp/exp effort, no accessory muscle use Cardiovascular: RRR, no murmur, no edema Vessels: no JVD or carotid bruit Chest: normal inspection of chest Abdomen: normal bowel sounds, soft, nontender, no hepatosplenomegaly Musculoskeletal: no cyanosis or clubbing, extremities motor strength 5/5 Skin: no rashes, warm and dry normal turgor Neurologic: PERRL, EOMI, accommodation nl, no face palsy, no dysarthria CN's II- XI intact bilaterally and moves all extremities Psychiatric: A+Ox3, euthymic affect Discharge Data Allergies Allergy/AdvReac Type Severity Reaction Status Date / Time ciprofloxacin Allergy Intermediate RASH Verified 10/14/23 21:16 BENEDICT Inhibitors AdvReac Intermediate COUGH Verified 10/14/23 21:16 metformin AdvReac Intermediate GI SYMPTOMS Verified 10/14/23 21:16 Ordered Studies 10/14/23 22:41 US gallbladder Stat Hospital Course (1) SOL (acute kidney injury): 88-year-old female with past medical History significant for type 2 diabetes, diabetic neuropathy, hyperlipidemia, hypothyroidism, obstructive sleep apnea on CPAP, CKD stage IV, hypertension, paroxysmal supraventricular tachycardia, GERD, B12 deficiency, kyphosis, mild dementia, anemia of chronic kidney disease, p ernicious anemia, history of COVID, presents with weakness and found to have elevated LFTs and SOL. Patient was recently treated for UTI with Bactrim. SOL on CKD stage IV Baseline creatinine around 1.4 to 1.7 presented creatinine of 2 possible from Bactrim and UTI Patient treated with IV fluids during the hospitalization Creatinine down trended to 1.69 Losartan hold on DC Follow-up with PCP with repeat CMP Elevated LFTs hyperbilirubinemia and elevated AST and ALT probably from Bactrim gallbladder ultrasound didn't show acute abnormality Liver enzymes trended down ESBL UTI on cultures drawn October 10 Treated with meropenem and Invanz during the hospitalization Blood culture negative Completed antibiotic course during the hospitalization Please note the above document was generated using voice recognition software. It may contain grammatical, syntax or spelling errors. Any formal questions or concerns about the content, text or information contained within the body of this dictation should be directly addressed to the provider for clarification Total Time Total Time Spent Total Time Spent (In Minutes): 34 Total Time Includes: Examination of the Patient, Discharge Planning, Medication Reconciliation, Communication With Other Providers and Other Discharge Plan Discharge Items Patient Disposition: Home - Self-Care Reason For Visit: WEAKNESS Discharge Diagnosis: Acute kidney injury Elevated liver enzymes Activity: Resume your previous activity Non-emergency contact: Primary Care Provider Call non-emergency contact if: you have any medication questions and your symptoms worsen Follow-up/Referrals: Milton Balderas MD [Primary Care Provider] - (Date & Time 10/23/2023 11:20 AM Provider Milton Balderas MD Department Family [facility] ) Diet: Regular Addtl Attending Provider Instructions: You were admitted to the hospital due to acute kidney and liver injury. Your l ab work suggest improvement today. Please stop taking Bactrim (antiboitics). Please hold losartan until you follow-up with your primary care doctor and repeat kidney function and liver function test. An appointment will be set up with your primary care doctor for next week Pending Studies at Discharge: No Stand-Alone Forms: My [employer], Smoking Cessation Medications and DC Order Prescriptions: Continued levothyroxine 75 mcg tablet 75 mcg PO QAM aspirin 81 mg Tablet,Delayed Release (Dr/Ec) 81 mg PO HS oxybutynin chloride 5 mg tablet extended release 24hr 5 mg PO HS Procrit 10,000 unit/mL solution 10,000 unit subcut MONTHLY PRN (Reason: WHEN NEEDED) Trulicity 0.75 mg/0.5 mL pen injector 0.75 mg SUBCUT WK Rx Instructions: ADMINISTER EVERY MONDAY Veltassa 8.4 gram powder in packet 8.4 g PO Q OTHER DAY nitroglycerin [Nitrostat] 0.6 mg Tablet, Sublingual 0.6 mg sublingual DIRECTED PRN (Reason: Chest Pain) biotin 1 mg Capsule 1 mg PO DAILY ferrous sulfate [FeroSul] 325 mg (65 mg iron) tablet 325 mg PO DAILY nystatin [Nyamyc] 100,000 unit/gram powder 1 applic TOPICAL TID PRN (Reason: irritation) fluticasone propionate 50 mcg/actuation spray,suspension 2 spray INTRANASAL DAILY PRN (Reason: Nasal Congestion) food supplemt, lactose-reduced Liquid 1 ea PO DAILY cholecalciferol (vitamin D3) [Vitamin D3] 25 mcg (1,000 unit) Tablet 25 mcg PO DAILY psyllium husk [Metamucil] 0.4 gram Capsule 0.4 g PO Q OTHER DAY Saccharomyces boulardii [Florastor] 250 mg capsule 250 mg PO DAILY Rx Instructions: swallow whole Held losartan 50 mg tablet 50 mg PO DAILY Qty: 30 0RF Hold Instructions: Resume on 10/23/23. Hold until you see your PCP and repeat BMP Discontinued sulfamethoxazole-trimethoprim 800-160 mg tablet 1 tab PO BID Rx Instructions: STARTED 10/12/23 FOR 7 DAYS Discharge Orders: Discharge Order (Routine); Ordered 10/17/23 Ordered By: Edil Ambriz/Other Patient Handouts: Managing Type 2 Diabetes Admission Data Admit Date/Time: 10/15/23 03:12 Attending Provider: Edil Angel Admit Provider: Luis Coello Primary Care Provider: Milton Balderas Other Interventions: Discharge Summary Assessment (RN) Last Done: 10/17/23 11:22
== END 2023-10-17 12:29 | disposition home or self-care (01) | DRG 683 ==
LOC: ED 19:56 → EDINP 10-15 03:12 → 2W 10-15 17:29

== ENCOUNTER 2023-12-07 09:42 | Inpatient (IN) ==
--- NOTE | 2023-12-07 10:36 | Emergency Department Note ---
Impression & Plan Urinary tract infection, Acute alteration in mental status ED Provider Note NAME: KELLI ALBRIGHT AGE: 88 SEX: F : 1935 ARRIVES VIA: Walk-In INFORMANT: Patient, the patient's family member ED PROVIDER(S): Gómez Snider DO CHIEF COMPLAINT: UTI symptoms HPI: The patient is an 88-year-old female who presented to the emergency department for altered mental status. The patient has been having some problems with confusion. She was recently treated for an ESBL E. coli urine infection. Her family doctor sent her to the emergency department today because they feel this is what could be going on again. There is no reported trauma although the patient has been stumbling with her ambulation recently according to her family member. There is no reported fever or vomiting. ROS: See above HPI for pertinent positives & negatives. A total of 10 systems reviewed and were otherwise negative. PAST MEDICAL HISTORY: See Below PAST SURGICAL HISTORY: See Below FAMILY HISTORY: See Below SOCIAL HISTORY: See Below HOME MEDICATIONS: See Below ALLERGIES: See Below VITALS: See Below PHYSICAL EXAMINATION: GENERAL: Patient is awake alert in no acute distress patient is resting comfortably and showing no signs of anxiety EYES: The conjunctivae are clear. The pupils are round and reactive. EARS, NOSE, MOUTH AND THROAT: The nose is without any evidence of any deformity. Mucous membranes are moist. Tongue is midline. NECK: The neck is nontender and supple. RESPIRATORY: Normal respiratory effort is noted there is no evidence of wheezing rhonchi or rales CARDIOVASCULAR: Regular rate and rhythm noted there no murmurs rubs or gallops normal S1 normal S2. GASTROINTESTINAL: The abdomen is soft. Abdomen is nontender. MUSCULOSKELETAL/EXTREMITIES: There is no evidence of gross deformity full range of motion is noted in the hips and shoulders. SKIN: the skin is warm and dry. Trace pedal edema was noted bilaterally. NEUROLOGIC: Patient is awake alert and oriented to person place and situation. Strength is symmetric. The patient recognize her family member. Gait was steady. MEDICAL DECISION MAKING: The patient is an 88-year-old female who presented to the emergency department for an evaluation of altered mental status. The patient has a history of urinary tract infection in the past. This is complicated by the fact that it is not ESBL E. coli infection. I discussed the patient's laboratory and radiographic studies with her. There is no acute abnormality noted on CT of the brain but she was found to have another urinary tract infection. I do feel the patient would be a poor candidate for outpatient management at this time. She will require IV antibiotics. Previously she was tried on Bactrim but she ended having some kidney issues because of this. For this reason I discussed her condition with the on-call [facility] hospitalist. They have agreed to evaluate the patient in the emergency department for further management and disposition. Triage Nursing notes reviewed. Prior medical records reviewed Vital Signs: reviewed and remarkable for no significant abnormalities Differential diagnosis: Infection, hypoglycemia, electrolyte abnormalities, overdose, toxicologic, cardiac sources, intracerebral event, neurologic, trauma, as well as other pathologies. ER treatment provided: See below Diagnostics interpreted by me: ECG: EKG was obtained in the emergency department. My interpretation is sinus rhythm at 62 bpm. There is no ectopy. Sinus arrhythmia was noted. Nonspecific ST depressions were noted with T wave versions. This was compared to a tracing from October 14, 2023. No changes were noted. Cardiac Monitoring: An order was placed for continuous cardiac monitoring. The monitor shows a rate of 66 bpm with sinus rhythm. Laboratory studies: As stated above and show below. Imaging studies: See below. Radiographic imaging was reviewed by myself Consultation(s): I discussed this case [facility]. Past Med/Surg History Problem List (Updated 12/07/23 @ 12:46 by Cherri Coronado PA-C) Complicated UTI (urinary tract infection) Acute metabolic encephalopathy Acute alteration in mental status (Acute) Urinary tract infection (Acute) Abnormal LFTs (Acute) SOL (acute kidney injury) (Acute) Hypomagnesemia (Acute) Generalized weakness (Acute) Hypomagnesemia (Acute) Generalized weakness (Acute) Elevated troponin (Acute) Chest pain (Acute) Decreased appetite Generalized weakness Elevated troponin Chronic anemia Chest pain (Acute) Abnormal EKG (Acute) Chronic RLQ pain Basal cell carcinoma of skin of ankle (Acute) Left knee DJD (Acute) Lichen sclerosus et atrophicus (Acute) Myelodysplastic syndrome (Acute) Right knee DJD (Acute) Urge and stress incontinence (Acute) Low back pain DVT prophylaxis Abnormal ECG Pernicious anemia DORIS on CPAP Hypothyroidism GERD (gastroesophageal reflux disease) Dyslipidemia DM type 2 (diabetes mellitus, type 2) CKD (chronic kidney disease), stage III (Acute) Anemia due to chronic kidney disease HTN (hypertension) Substernal chest pain (Acute) Chest pain (Acute) Medical History (Updated 12/07/23 @ 12:46 by Cherri Coronado PA-C) CKD (chronic kidney disease) History of ESBL E. coli infection Hypertensive urgency IgM lambda paraproteinemia Surgical History History of gynecologic surgery anterior colporrhaphy History of hysteroscopy Status post tubal ligation History of total bilateral knee replacement (TKR) History of knee surgery History of appendectomy History of dilation and curettage S/P cholecystectomy Family History Mother , 85 Heart disease Diabetes Father , 65 Pancreatic cancer Sister Uterine cancer Breast cancer Denies family history of Ovarian cancer Colorectal cancer Social History Smoking Status: Never smoker Tobacco Type: Cigarettes Second Hand Exposure: No; Do You Dip or Chew Tobacco: No; Hx Alcohol Use: No Hx Substance Use: No Preferred Language: Uzbek Communication Ability: Effective Treadle Cut Off Saw Operator Required: No Beliefs That Will Affect Care: None marital status: Current Living Situation: Spouse Current Living Situation Comment: at home current occupational status: retired Feels Safe at Home: Yes Assistive Devices: Cane, CPAP and Walker Allergies Allergies Allergy/AdvReac Type Severity Reaction Status Date / Time ciprofloxacin Allergy Intermediate RASH Verified 10/14/23 21:16 BENEDICT Inhibitors AdvReac Intermediate COUGH Verified 10/14/23 21:16 metformin AdvReac Intermediate GI SYMPTOMS Verified 10/14/23 21:16 Home Meds Home Medications Medication Instructions Recorded Confirmed levothyroxine 75 mcg tablet 75 mcg PO QAM 06/11/18 12/07/23 aspirin 81 mg tablet,delayed 81 mg PO HS 03/27/19 12/07/23 release dulaglutide 0.75 mg/0.5 mL 0.75 mg subcut WK 03/27/19 12/07/23 subcutaneous pen injector ([facility]) epoetin lou 10,000 unit/mL 10,000 unit subcut MONTHLY PRN 03/27/19 12/07/23 injection solution (Procrit) WHEN NEEDED oxybutynin chloride 5 mg 5 mg PO HS 03/27/19 12/07/23 tablet,extended release 24 hr biotin 1 mg capsule 1 mg PO DAILY 05/26/22 12/07/23 nitroglycerin 0.6 mg sublingual 0.6 mg sublingual DIRECTED PRN 05/26/22 12/07/23 tablet (Nitrostat) Chest Pain patiromer calcium sorbitex 8.4 8.4 g PO Q OTHER DAY 05/26/22 12/07/23 gram oral powder packet (Veltassa) cholecalciferol (vitamin D3) 25 25 mcg PO DAILY 05/22/23 12/07/23 mcg (1,000 unit) tablet (Vitamin D3) ferrous sulfate 325 mg (65 mg 325 mg PO DAILY 05/22/23 12/07/23 iron) tablet (FeroSul) fluticasone propionate 50 2 spray intranasal DAILY PRN Nasal 05/22/23 12/07/23 mcg/actuation nasal Congestion spray,suspension food supplemt, lactose-reduced 1 ea PO DAILY 05/22/23 12/07/23 nystatin 100,000 unit/gram topical 1 applic topical TID PRN irritation 05/22/23 12/07/23 powder (Nyamyc) Saccharomyces boulardii 250 mg 250 mg PO DAILY 08/13/23 12/07/23 capsule (Florastor) psyllium husk 0.4 gram capsule 0.4 g PO Q OTHER DAY 08/13/23 12/07/23 (Metamucil) Results & Data (ED) Vital Signs Vital Signs - 24 hr 12/07/23 09:47 12/07/23 10:13 12/07/23 10:52 Temperature 36.8 C 36.8 C Temperature Source Temporal Artery Scan Oral Pulse Rate 79 69 Pulse Rate [Right Finger] 67 Respiratory Rate 18 18 18 Respiratory Effort / Characteristics Non-Labored Non-Labored Respiratory Depth Normal Respiratory Pattern Regular Blood Pressure 182/9 H Blood Pressure [Right Arm] 151/75 H Blood Pressure Mean 66 Blood Pressure Mean [Right Arm] 100 Blood Pressure Position [Right Arm] Lying Pulse Oximetry 97 95 96 Oxygen Delivery Method Room Air Room Air Room Air Sepsis Recent Fever Within 48 Hours No Sepsis New/Unexplained Change in Mental Status N/A Sepsis Action Taken by Nursing No Action Required 12/07/23 11:12 Temperature Temperature Source Pulse Rate 66 Pulse Rate [Right Finger] Respiratory Rate 13 Respiratory Effort / Characteristics Respiratory Depth Respiratory Pattern Blood Pressure Blood Pressure [Right Arm] Blood Pressure Mean Blood Pressure Mean [Right Arm] Blood Pressure Position [Right Arm] Pulse Oximetry 95 Oxygen Delivery Method Sepsis Recent Fever Within 48 Hours Sepsis New/Unexplained Change in Mental Status Sepsis Action Taken by Jail Medications Current Medication List: was personally reviewed by me Laboratory Data Attestation: I reviewed the patient's lab results. 12/07/23 10:28 12/07/23 10:28 Lab Results 12/07/23 Range/Units 10:28 WBC 8.33 (4.8-10.8) K/ul RBC 3.73 L (4.20-5.40) M/uL Hgb 11.2 L (12.0-16.0) g/dl Hct 33.7 L (37.0-47.0) % MCV 90.3 (80.0-100.0) fL MCH 30.0 (25.0-34.0) pg MCHC 33.2 (32.0-36.0) g/dL RDW Std Deviation 41.5 (36.4-46.3) fL RDW Coeff of Elpidio 12.6 (11.5-14.5) % Plt Count 193 (130-400) K/uL MPV 11.1 (9.4-12.4) fL Immature Gran % (Auto) 0.2 % Neut % (Auto) 65.5 % Lymph % (Auto) 21.7 % [place] % (Auto) 8.9 % Eos % (Auto) 2.9 % Baso % (Auto) 0.8 % Neut # (Auto) 5.45 (1.40-6.50) K/uL Lymph # (Auto) 1.81 (1.20-3.40) K/uL [place] # (Auto) 0.74 H (0.11-0.59) K/uL Eos # (Auto) 0.24 (0.00-0.50) K/uL Baso # (Auto) 0.07 (0.00-0.20) K/uL Immature Gran # (Auto) 0.02 (0.01-0.20) K/uL PT 10.5 (9.0-12.0) Seconds INR 1.0 (0.9-1.1) APTT 23 (21-31) Seconds PTT Ratio 0.9 Sodium 139 (136-145) mmol/L Potassium 4.3 (3.5-5.1) mmol/L Chloride 105 (98-107) mmol/L Carbon Dioxide 26 (21-32) mmol/L Anion Gap 8 (3-11) BUN 31 H (6-23) mg/dl Creatinine 1.46 H (0.6-1.2) mg/dl Est Cr Clr Drug Dosing 28.3 ml/min Est GFR ( Amer) 37.4 ml/min Est GFR (Non-Af Amer) 32.3 ml/min BUN/Creatinine Ratio 21.2 H (10-20) Glucose 182 H (70-99(Fasting)) mg/dl Calcium 10.2 (8.6-10.3) mg/dl Total Bilirubin 0.7 (0.2-1.0) mg/dl AST 53 H (13-39) U/L ALT 61 H (7-52) U/L Alkaline Phosphatase 44 (34-104) U/L Troponin I High Sens 8.2 (0-14) pg/ml Total Protein 7.0 (6.0-8.3) gm/dl Albumin 4.3 (3.4-5.0) gm/dl Globulin 2.7 (2.5-4.0) gm/dl Albumin/Globulin Ratio 1.6 (0.9-2) Lipase 51 (11-82) U/L Urine Color Yellow Urine Appearance Turbid A (Clear) Urine pH 5.5 (4.5-7.5) Ur Specific Mark 1.013 (1.000-1.030) Urine Protein 2+ H (Negative) Urine Glucose (UA) Negative (Negative) Urine Ketones Negative (Negative) Urine Blood 1+ H (Negative) Urine Nitrite Negative (Negative) Urine Bilirubin Negative (Negative) Urine Urobilinogen Negative (Negative) Ur Leukocyte Esterase 3+ H (Negative) Urine WBC (Auto) >50 H (0-5) /hpf Urine RBC (Auto) 0-2 (0-2) /hpf U Hyaline Cast (Auto) 3-5 H (0-2) /lpf U Epithel Cells (Auto) 3-5 H (0-2) /hpf Urine Bacteria (Auto) 2+ H (None Seen) Administered Medications Discontinued Medications Sodium Chloride (Nss) 500 mls @ 999 mls/hr IV .Q31M STA Stop: 12/07/23 10:48 Last Infusion: 12/07/23 13:10 Dose: Infused Documented By: Admin: 12/07/23 11:08 Dose: 999 mls/hr Documented By: BRANDY Ertapenem (Invanz) 10 mls @ 2 mls/min IV NOW STA Stop: 12/07/23 11:41 Last Admin: 12/07/23 12:10 Dose: 2 mls/min Documented By: BRANDY Imaging Data Attestation: I personally reviewed and interpreted this imaging study as follows: My Impression: CT the brain was obtained in the emergency department. My interpretation is no intracranial hemorrhage or mass effect, final report below. Radiologist's Impression: Head CT 12/07/23 10:22 CT head/brain wo con CLINICAL HISTORY: AMS Technique: Contiguous axial CT images of the head were acquired from the base of the skull to the vertex without intravenous contrast administration. Images were viewed in brain, subdural and bone windows. Automated dose lowering techniques and/or adjustment according to patient size were utilized for this exam. Comparison: Comparison is made to CT head 09/28/2023 Findings: The ventricles, basal cisterns, and cerebral sulci are normal. There is no acute intracranial hemorrhage or evidence of acute territorial infarction. Neither mass effect, shift of the midline structures, nor abnormal extra-axial fluid collections are shown. Imaged portions of the paranasal sinuses and mastoid air cells are clear. The orbits appear normal. There are no acute fractures of the calvaria or scalp swelling. Impression: No acute intracranial hemorrhage, no evidence of acute territorial infarction or other acute intracranial disease process. ACT 112: Negative or not required by law. Electronically signed by: Ludwig Beverly M.D. 12/07/2023 11:05 AM Discharge Plan Visit Data Chief Complaint: Referred by Doctor Stated Complaint: KIDNEY ISSUES, REF BY DOC ED Provider: Gómez Snider Discharge Problem: Urinary tract infection, Acute alteration in mental status Patient Disposition: Being Evaluated by Hospitalist Forms Stand Alone Forms: My [facility] Prescriptions Prescriptions: No Action levothyroxine 75 mcg tablet 75 mcg PO QAM aspirin 81 mg Tablet,Delayed Release (Dr/Ec) 81 mg PO HS oxybutynin chloride 5 mg tablet extended release 24hr 5 mg PO HS Procrit 10,000 unit/mL solution 10,000 unit subcut MONTHLY PRN (Reason: WHEN NEEDED) Trulicity 0.75 mg/0.5 mL pen injector 0.75 mg SUBCUT WK Rx Instructions: ADMINISTER EVERY MONDAY Veltassa 8.4 gram powder in packet 8.4 g PO Q OTHER DAY nitroglycerin [Nitrostat] 0.6 mg Tablet, Sublingual 0.6 mg sublingual DIRECTED PRN (Reason: Chest Pain) biotin 1 mg Capsule 1 mg PO DAILY ferrous sulfate [FeroSul] 325 mg (65 mg iron) tablet 325 mg PO DAILY nystatin [Nyamyc] 100,000 unit/gram powder 1 applic TOPICAL TID PRN (Reason: irritation) fluticasone propionate 50 mcg/actuation spray,suspension 2 spray INTRANASAL DAILY PRN (Reason: Nasal Congestion) food supplemt, lactose-reduced Liquid 1 ea PO DAILY cholecalciferol (vitamin D3) [Vitamin D3] 25 mcg (1,000 unit) Tablet 25 mcg PO DAILY psyllium husk [Metamucil] 0.4 gram Capsule 0.4 g PO Q OTHER DAY Saccharomyces boulardii [Florastor] 250 mg capsule 250 mg PO DAILY Rx Instructions: swallow whole Referrals Referrals: Milton Balderas MD [Primary Care Provider] - Discharge Problem: Urinary tract infection Qualifiers: Urinary tract infection type: site unspecified Hematuria presence: without hematuria Qualified Code(s): N39.0 - Urinary tract infection, site not specified
[2023-12-07 11:03] LABS: Basophils # (auto) 0.07 K/uL (0.00-0.20); Basophils % (auto) 0.8 %; Eosinophils # (auto) 0.24 K/uL (0.00-0.50); Eosinophils % (auto) 2.9 %; Hematocrit (blood only) 33.7 % (37.0-47.0); Hemoglobin 11.2 g/dl (12.0-16.0); Immature Granulocytes # (auto) 0.02 K/uL (0.01-0.20); Immature Granulocytes % (auto) 0.2 %; Lymphocytes # (auto) 1.81 K/uL (1.20-3.40); Lymphocytes % (auto) 21.7 %; Mean Corpuscular Hgb Conc 33.2 g/dL (32.0-36.0); Mean Corpuscular Volume 90.3 fL (80.0-100.0); Mean Platelet Volume 11.1 fL (9.4-12.4); Monocytes # (auto) 0.74 K/uL (0.11-0.59); Monocytes % (auto) 8.9 %; Neutrophils # (auto) 5.45 K/uL (1.40-6.50); Neutrophils % (auto) 65.5 %; Platelet Count 193 K/uL (130-400); RDW Coefficient of Variation 12.6 % (11.5-14.5); RDW Standard Deviation 41.5 fL (36.4-46.3); Red Blood Count 3.73 M/uL (4.20-5.40); White Blood Count 8.33 K/ul (4.8-10.8)
[2023-12-07 11:06] LABS: Appearance Urine Turbid (Clear); Bacteria Urine Automated 2+ (None Seen); Bilirubin Urine Negative (Negative); Blood Urine 1+ (Negative); Color Urine Yellow; Glucose Urine UA Negative (Negative); Ketones Urine Negative (Negative); Leukocyte Esterase Urine 3+ (Negative); Nitrite Urine Negative (Negative); Protein Urine 2+ (Negative); RBC Urine Automated 0-2 /hpf (0-2); Specific Gravity Urine 1.013 (1.000-1.030); Urobilinogen Urine Negative (Negative); WBC Urine Automated >50 /hpf (0-5); pH Urine 5.5 (4.5-7.5)
--- NOTE | 2023-12-07 11:07 | CT Scan Report ---
CT head/brain wo con CLINICAL HISTORY: AMS Technique: Contiguous axial CT images of the head were acquired from the base of the skull to the lexus janna without intravenous contrast administration. Images were viewed [facility] brain, subdural [facility]. Automated dose lowering techniques and/or adjustment according to patient size were utilized for this exam. Comparison: Comparison is made to CT head 09/28/2023 Findings: The ventricles, basal cisterns, and cerebral sulci are normal. There is no acute intracranial hemorrh age or evidence of acute territorial infarction. Neither mass effect, shift of the midline structures , nor abnormal extra-axial fluid collections are shown. Imaged portions of the paranasal sinuses and mastoid air cells are clear. The orbits appear normal. There are no acute fractures of the calvaria or scalp swelling. Impression: No acute intracranial hemorrhage, no evidence of acute territorial infarction or other acute intracra nial disease process. ACT 112: Negative or not required by law. Electronically signed by: Ludwig Beverly M.D. 12/07/2023 11:05 AM
[2023-12-07] MEDS: SODIUM CHLORIDE 0.9% 500 ML IV STA (11:08)
[2023-12-07 11:11] LABS: Albumin Globulin Ratio 1.6 (0.9-2); Albumin Level 4.3 gm/dl (3.4-5.0); BUN Creatinine Ratio 21.2 (10-20); Bilirubin,Total 0.7 mg/dl (0.2-1.0); Calcium 10.2 mg/dl (8.6-10.3); Creatinine Clr Calc Pharmacy 28.3 ml/min; Est GFR (African American) 37.4 ml/min; Est GFR (Non-African American) 32.3 ml/min; Globulin 2.7 gm/dl (2.5-4.0); Potassium 4.3 mmol/L (3.5-5.1)
[2023-12-07 11:16] LABS: Troponin I High Sensitivity 8.2 pg/ml (0-14)
[2023-12-07 11:19] LABS: Partial Thromboplastin Ratio 0.9; Partial Thromboplastin Time 23 Seconds (21-31); Prothrombin Time 10.5 Seconds (9.0-12.0)
[2023-12-07] MEDS: ERTAPENEM SODIUM 10 ML IV STA (12:10)
--- NOTE | 2023-12-07 12:35 | History & Physical Report ---
Date of Service December 07, 2023 Assessment & Plan (1) Acute metabolic encephalopathy: (2) Complicated UTI (urinary tract infection): (3) History of ESBL E. coli infection: (4) Hypothyroidism: (5) DM type 2 (diabetes mellitus, type 2): (6) HTN (hypertension): (7) CKD (chronic kidney disease): (8) DORIS on CPAP: Plan This is an 88-year-old female with PMH of type 2 diabetes, hypothyroidism, dyslipidemia, CKD stage IV, hypertension, PSVT, ODRIS on CPAP, anemia of chronic disease and other medical problems listed below who presents with confusion and urinary symptoms over the past few days. Was recently admitted at the beginning of October for ESBL UTI and was admitted to [facility], treated with Invanz. Sent in by PCP this morning due to confusion and abnormal UA. Acute metabolic encephalopathy Complicated UTI H/o ESBL UTI Non-toxic appearance, does not meet sepsis criteria 3 days of symptoms, abnormal UA as an outpatient Recent admission for ESBL UTI Treat with Ertapenem based on previous culture Hold oxybutynin as no sx of OAB Contact precautions Follow repeat culture Gentle fluids CKD stage IV Cr 1.4 today (baseline creatinine ~ 1.4-1.6) Renally dose antibiotic Daily BMP Anemia of chronic disease Hgb improved to 11.2 Receiving Procrit Q monthly, continue daily iron HTN Previously on losartan, has not been resumed BP 151/75 - monitor while admitted DM II A1c 6.4 on 12/04/23 Hold home agents SSI while in-patient BSG AC HS Hypothyroidism Continue levothyroxine DVT Ppx: SQ heparin Code status: FULL PCP: Sherrie Dispo: admitted to med/surg Patient seen in collaboration with Dr. Jackson. Please see addendum. I spent a total of 75 minutes coordinating, documenting, and providing care for this patient excluding time spent in the performance of separately billed services. History of Present Illness Chief Complaint: Confusion, abnormal labs Primary Care Provider: Milton Balderas MD This is an 88-year-old female with PMH of type 2 diabetes, hypothyroidism, dyslipidemia, CKD stage IV, hypertension, PSVT, DORIS on CPAP, anemia of chronic disease and other medical problems listed below who presents with confusion and urinary symptoms over the past few days. Per , patient has been notably more forgetful and less steady on her feet over the past few days. Denies any fever, chills, nausea, vomiting or abdominal pain. No CP or SOB. Endorses some dysuria, more frequent urination and pressure in her bladder over the past few days. Was recently admitted at the beginning of October for ESBL UTI and was admitted to [facility], treated with Invanz. Does take oxybutynin but has difficulty answering whether or not she has urge incontinence. Allergies Allergy/AdvReac Type Severity Reaction Status Date / Time ciprofloxacin Allergy Intermediate RASH Verified 10/14/23 21:16 BENEDICT Inhibitors AdvReac Intermediate COUGH Verified 10/14/23 21:16 metformin AdvReac Intermediate GI SYMPTOMS Verified 10/14/23 21:16 Home Medications Medication Instructions Recorded Confirmed Type levothyroxine 75 mcg tablet 75 mcg PO QAM 06/11/18 12/07/23 History aspirin 81 mg tablet,delayed 81 mg PO HS 03/27/19 12/07/23 History release dulaglutide 0.75 mg/0.5 mL 0.75 mg subcut WK 03/27/19 12/07/23 History subcutaneous pen injector (Trulicity) epoetin lou 10,000 unit/mL 10,000 unit subcut MONTHLY PRN 03/27/19 12/07/23 History injection solution (Procrit) WHEN NEEDED oxybutynin chloride 5 mg 5 mg PO HS 03/27/19 12/07/23 History tablet,extended release 24 hr biotin 1 mg capsule 1 mg PO DAILY 05/26/22 12/07/23 History nitroglycerin 0.6 mg sublingual 0.6 mg sublingual DIRECTED PRN 05/26/22 12/07/23 History tablet (Nitrostat) Chest Pain patiromer calcium sorbitex 8.4 8.4 g PO Q OTHER DAY 05/26/22 12/07/23 History gram oral powder packet (Veltassa) cholecalciferol (vitamin D3) 25 25 mcg PO DAILY 05/22/23 12/07/23 History mcg (1,000 unit) tablet (Vitamin D3) ferrous sulfate 325 mg (65 mg 325 mg PO DAILY 05/22/23 12/07/23 History iron) tablet (FeroSul) fluticasone propionate 50 2 spray intranasal DAILY PRN Nasal 05/22/23 12/07/23 History mcg/actuation nasal Congestion spray,suspension food supplemt, lactose-reduced 1 ea PO DAILY 05/22/23 12/07/23 History nystatin 100,000 unit/gram topical 1 applic topical TID PRN irritation 05/22/23 12/07/23 History powder (Nyamyc) Saccharomyces boulardii 250 mg 250 mg PO DAILY 08/13/23 12/07/23 History capsule (Florastor) psyllium husk 0.4 gram capsule 0.4 g PO Q OTHER DAY 08/13/23 12/07/23 History (Metamucil) Past Med/Surg History Problem List (Updated 12/07/23 @ 12:46 by Cherri Coronado PA-C) Complicated UTI (urinary tract infection) Acute metabolic encephalopathy Acute alteration in mental status (Acute) Urinary tract infection (Acute) Abnormal LFTs (Acute) SOL (acute kidney injury) (Acute) Hypomagnesemia (Acute) Generalized weakness (Acute) Hypomagnesemia (Acute) Generalized weakness (Acute) Elevated troponin (Acute) Chest pain (Acute) Decreased appetite Generalized weakness Elevated troponin Chronic anemia Chest pain (Acute) Abnormal EKG (Acute) Chronic RLQ pain Basal cell carcinoma of skin of ankle (Acute) Left knee DJD (Acute) Lichen sclerosus et atrophicus (Acute) Myelodysplastic syndrome (Acute) Right knee DJD (Acute) Urge and stress incontinence (Acute) Low back pain DVT prophylaxis Abnormal ECG Pernicious anemia DORIS on CPAP Hypothyroidism GERD (gastroesophageal reflux disease) Dyslipidemia DM type 2 (diabetes mellitus, type 2) CKD (chronic kidney disease), stage III (Acute) Anemia due to chronic kidney disease HTN (hypertension) Substernal chest pain (Acute) Chest pain (Acute) Medical History (Updated 12/07/23 @ 12:46 by Cherri Coronado PA-C) CKD (chronic kidney disease) History of ESBL E. coli infection Hypertensive urgency IgM lambda paraproteinemia Surgical History History of gynecologic surgery anterior colporrhaphy History of hysteroscopy Status post tubal ligation History of total bilateral knee replacement (TKR) History of knee surgery History of appendectomy History of dilation and curettage S/P cholecystectomy Family History Mother , 85 Heart disease Diabetes Father , 65 Pancreatic cancer Sister Uterine cancer Breast cancer Denies family history of Ovarian cancer Colorectal cancer Social History Smoking Status: Never smoker Tobacco Type: Cigarettes Second Hand Exposure: No; Do You Dip or Chew Tobacco: No; Hx Alcohol Use: No Hx Substance Use: No Preferred Language: Tajik Communication Ability: Effective Mini Lab Operator Required: No Beliefs That Will Affect Care: None marital status: Current Living Situation: Spouse Current Living Situation Comment: at home current occupational status: retired Feels Safe at Home: Yes Assistive Devices: Cane, CPAP and Walker Review of Systems Review of Systems: At least ten systems reviewed and negative except as noted in the HPI. Physical Exam Physical Exam: Please see Dr. Jackson's addendum for physical exam. Results & Data Results & Data Vital Signs (Past 12 Hours) Vital Signs Temp Pulse Pulse Resp BP BP Pulse Ox 12/07/23 10:52 69 18 96 12/07/23 10:13 36.8 C 67 18 151/75 H 95 12/07/23 09:47 36.8 C 79 18 182/9 H 97 O2 Del Method 12/07/23 10:52 Room Air 12/07/23 10:13 Room Air 12/07/23 09:47 Room Air Laboratory Results Short CBC 12/07/23 Range/Units 10:28 WBC 8.33 (4.8-10.8) K/ul Hgb 11.2 L (12.0-16.0) g/dl Hct 33.7 L (37.0-47.0) % Plt Count 193 (130-400) K/uL BMP 12/07/23 10:28 Sodium 139 Potassium 4.3 Chloride 105 Carbon Dioxide 26 BUN 31 H Creatinine 1.46 H Glucose 182 H Calcium 10.2 Liver Function 12/07/23 Range/Units 10:28 Total Bilirubin 0.7 (0.2-1.0) mg/dl AST 53 H (13-39) U/L ALT 61 H (7-52) U/L Alkaline Phosphatase 44 (34-104) U/L Albumin 4.3 (3.4-5.0) gm/dl Urine 12/07/23 Range/Units 10:28 Urine Color Yellow Urine Appearance Turbid A (Clear) Urine pH 5.5 (4.5-7.5) Ur Specific [place] 1.013 (1.000-1.030) Urine Protein 2+ H (Negative) Urine Glucose (UA) Negative (Negative) Diagnostic Findings Head CT 12/07/23 10:22 CT head/brain wo con CLINICAL HISTORY: AMS Technique: Contiguous axial CT images of the head were acquired from the base of the skull to the vertex without intravenous contrast administration. Images were viewed in brain, subdural and bone windows. Automated dose lowering techniques and/or adjustment according to patient size were utilized for this exam. Comparison: Comparison is made to CT head 09/28/2023 Findings: The ventricles, basal cisterns, and cerebral sulci are normal. There is no acute intracranial hemorrhage or evidence of acute territorial infarction. Neither mass effect, shift of the midline structures, nor abnormal extra-axial fluid collections are shown. Imaged portions of the paranasal sinuses and mastoid air cells are clear. The orbits appear normal. There are no acute fractures of the calvaria or scalp swelling. Impression: No acute intracranial hemorrhage, no evidence of acute territorial infarction or other acute intracranial disease process. ACT 112: Negative or not required by law. Electronically signed by: Ludwig Beverly M.D. 12/07/2023 11:05 AM Code Status & VTE Plan VTE Prophylaxis Plan VTE Prophylaxis will be ordered: Yes Supervising Physician Co-Signing Physician Notes Patient was seen and examined with Cherri Coronado PA-C at bedside. Chart reviewed. Case discussed with Cherri and agree with the documentation above. In summary, this is a 88 year old female with h/o recurrent UTIs is being admitted for symptomatic UTI with suggestive UA. Last urine clx in October with ESBL E coli sensitive to ertapenem. Patient is currently non-toxic. No fever, no leucocytosis, vital stable. AAOx3, conversing well. Will start on iv ertapenem 500 mg q24 hr (renally dosed) pending urine clx results. Will hold oxybutynin as she denies any h/o OAB- can consider discontinuing if no issues. Rest as per the note above. at bedside. On exam- General: Lying comfortably in bed, not in distress, on room air HEENT: EOMI, NEERU, MMM Chest: Clear breath sounds bilaterally, no wheezes or crackles CVS: Regular rate and rhythm, normal heart sounds, no murmur Abdomen: Soft, non tender, not distended, normal bowel sounds Neuro: Awake, alert, oriented, conversing well, non focal Extremities: No cyanosis, clubbing or edema
[2023-12-07] MEDS ORDERED: GLUCOSE 10 TAB/TUBE PO PRN (12:53)
[2023-12-07] MEDS ORDERED: DEXTROSE 50% 50 ML SYRINGE IV PRN (12:53)
[2023-12-07] MEDS ORDERED: CARBOHYDRATES FOR HYPOGLYCEMIA PO PRN (12:53)
[2023-12-07] MEDS ORDERED: GLUCAGON FOR INJ 1 MG VIAL SQ PRN (12:53)
[2023-12-07] MEDS ORDERED: GLUCOSE 40% GEL 15 GM TUBE PO PRN (12:53)
[2023-12-07] MEDS: SODIUM CHLORIDE 0.9% 1,000 ML IV SCH (13:40)
[2023-12-07] MEDS ORDERED: POLYETHYLENE (MIRALAX) 17 GM PACK PO PRN (14:47)
[2023-12-07] MEDS ORDERED: FLUTICASONE PROPIONATE NA SPR 16 GM BTL NAE PRN (14:47)
[2023-12-07] MEDS ORDERED: ONDANSETRON INJ 2 MG/ML 2 ML VIAL IV PRN (14:47)
[2023-12-07] MEDS ORDERED: EPOETIN ALFA 10,000 UNITS/ML VIAL SQ PRN (14:47)
[2023-12-07] MEDS ORDERED: NYSTATIN POWDER 15GM BTL EXT PRN (14:47)
[2023-12-07] MEDS ORDERED: ACETAMINOPHEN 325 MG TAB PO PRN (14:47)
--- OUTSIDE RECORDS SUMMARY | 2023-12-07 14:51 | External Medical Summary ---
Author Name Unknown Address Unknown Organization [id number]:[facility] [address] [facility] [address] Laboratory Report Ordering Provider Test Date Status TRENA ARCE 12/07/2023 08:48:00 Final Observation Date Value Abnormality Reference (Units ) Status Color of Urine by Auto 12/07/2023 08:48:00 Yellow Light Yellow, Yellow Final Clarity, Urine 12/07/2023 08:48:00 Cloudy Abnormal Clear Final Glucose [Mass/volume] in Urine by Automated test strip 12/07/2023 08:48:00 Negative Negative (mg/dL) Final Bilirubin.total [Presence] in Urine by Automated test strip 12/07/2023 08:48:00 Negative Negative Final Ketones [Mass/volume] in Urine by Automated test strip 12/07/2023 08:48:00 Negative Negative (mg/dL) Final Specific gravity, Urine 12/07/2023 08:48:00 1.025 1.003-1.030 Final Hemoglobin [Presence] in Urine by Automated test strip 12/07/2023 08:48:00 Small Abnormal Negative Final pH, Urine 12/07/2023 08:48:00 5.5 5.0, 5.5, 6.0, 6.5, 7.0, 7.5 (units) Final Protein [Mass/volume] in Urine by Automated test strip 12/07/2023 08:48:00 >=300 Abnormal Negative (mg/dL) Final Urobilinogen, Urine 12/07/2023 08:48:00 0.2 0.2, 1.0 (mg/dL) Final Nitrite [Presence] in Urine by Automated test strip 12/07/2023 08:48:00 Negative Negative Final Leukocyte esterase [Presence] in Urine by Automated test strip 12/07/2023 08:48:00 Large Abnormal Negative Final Performing Location [facility] [address] [place] [address]
--- OUTSIDE RECORDS SUMMARY | 2023-12-07 14:51 | External Medical Summary | Summary of Care ---
Author Name Unknown Organization [facility] Address [address] [place] [address] Phone [phone] Care Team Providers Care Hide Paster Name Role Phone Milton Balderas MD Primary Care Provider + Reason for Visit * Reason Onset Date Comments TRIAGE 12/06/2023 Encounter Details Date Type Department Care Team (Late st Contact Info) Description 12/06/2023 Telephone Family Practice [facility] [address] [place] [address] July Duran CRNP [address] [facility] [place] [address] TRIAGE Allergies Active Allergy Reactions Criticality Noted Date Comments Neville Inhibitors Cough 09/29/2010 Lisinopril causes cough Ciprofloxacin Rash Medium 05/03/2014 Rash with first IV dose in hospital Metformin Diarrhea 09/29/2010 documented as of this encounter (statuses as of 12/07/2023) Medications Medication Sig Dispensed Refills Start Date [...] CHEW) 90 Tablet 3 06/20/2022 Active Nystatin 889358 UNIT/GM External Powder (Nystop)Indication s:Tinea corporis Apply topically to affected area 3 times a day. Apply to under breasts and belly 60 g 1 07/13/2022 Active Boost Oral Liquid Take by mouth [...] MORNING 90 Tablet 3 02/14/2023 Active Procrit 09698 UNIT/ML Injection SolutionIndication s:Anemia of chronic renal [...] mouth daily. 90 Tablet 1 04/27/2023 Active OneTouch Verio In Vitro Strip (Glucose Blood) Use to test blood sugar 2 times a day. DX E11.9 200 Strip 1 06/09/2023 Active OneTouch Delica Lancets 30G USE TO CHECK GLUCOSE UP TO 4 TIMES DAILY 400 Each 3 06/09/2023 Active Fluticasone Propionate 50 MCG/ACT Nasal Suspension (Flonase) Administer 2 Sprays into each nostril in the morning. 16 g 1 07/07/2023 Active Trulicity 0.75 MG/0.5ML Subcutaneous Solution Pen-injector (Dulaglutide)Indic ations:Type 2 diabetes mellitus with stage 4 chronic kidney disease, without long-term current use of insulin (HCC) INJECT 1 PEN WEEKLY 6 mL 1 10/17/2023 Active Estradiol 0.1 MG/GM Vaginal Cream (Estrace)Indicatio ns:Recurrent UTI Use 1gm nightly -rub around vaginal opening and use inside , for 2 weeks. Then use twice weekly. 42.5 g 3 10/27/2023 Active documented as of this encounter (statuses as of 12/07/2023) Active Problems Problem Noted Date Diagnosed Date [...] Overview: Found on barium swallow, 01/25/2010 at [facility] DORIS on CPAP 11/10/2010 Overview: Sleep study on 12/24/2009, [facility], Cpap 8, flex setting 3 AHP ICD-10 update of inactive term History of basal cell cancer 11/10/2010 Overview: BCC, left neck, 12/24/2009 ICD-10 update of inactive term HTN, goal below 130/80 09/29/2010 Dyslipidemia, goal LDL below 100 09/29/2010 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 Pernicious anemia Hypothyroidism GERD (gastroesophageal reflux disease) documented as of this encounter (statuses as of 12/07/2023) Resolved Problems Problem Noted Date Diagnosed Date [...] as of this encounter (statuses as of 12/07/2023) Immunizations Name Administration Dates Next Due COVID-19 mRNA, LNP-s, No Pre serve, 2-Dose Series (Pfizer) 03/15/2021,07/15/2020,06/17/2020 Pneumococcal Conjugate Vacc, 13 Valent (Prevnar) 08/13/2014 Pneumococcal Polysaccharide PPV23 (Pneumovax) 09/29/2010 RSV Vac., Recomb, Adjuvant, PF,0.5 Ml (Arexvy) 06/05/2023 Seasonal Influenza, PF, 6 M & above, [...] money to get more. Never true 08/23/2023 Childcare Answer Date Recorded Do you feel overwhelmed with taking care of a child, family member or friend? No 08/23/2023 Does your family need help f inding childcare? (Household - for ages 0-17 years) Not on file 08/23/2023 Clothing Answer Date Recorded Have you been unable to get clothing when it was really needed? No 08/23/2023 Is your family able to get c lothes or diapers when needed? (Household - for ages 0-17 years) Not on file 08/23/2023 Personal Safety Answer Date Recorded Do you feel unsafe or have concerns for your saf ety? No 08/23/2023 Do you have concerns for you r family's safety? (Household - for ages 0-17 years) Not on file 08/23/2023 Utilities Answer Date Recorded Do you have trouble paying y our heating, water, or electric bill? No 08/23/2023 Is your family able to pay t he heat, water, or electric bill? (Household - for ages 0-17 years) Not on file 08/23/2023 Does your family have access to good internet? (Household - for ages 0-17 years) Not on file 08/23/2023 Employment Status Answer Date Recorded Are you unemployed or without regular income? No 08/23/2023 Does the household have a re gular source of income? (Household - for ages 0-17 years) Not on file 08/23/2023 Social Connections Answer Date Recorded How often do you feel lonely or isolated from th ose around you? Never 08/23/2023 Financial Resource Strain Answer Date R ecorded Do you have any trouble payi ng for your medications, or do you think you might in the future? No 08/23/2023 Does your family have troubl e paying for medicine? (Household - for ages 0-17 years) Not on file 08/23/2023 Transportation Needs Answer Date Record ed READ ONLY Do you have troubl e getting a ride to medical visits or work? Never True 08/23/2023 Does your family have a hard time getting a ride to doctors visits? (Household - for ages 0-17 years) Not on file 08/23/2023 Has lack of transportation k ept you from medical appointments, meetings, work, or from getting things needed for daily living? Check all that apply. (Adult - for ages 18 years and over) Not on file 08/23/2023 Do you (or your family) have trouble finding or paying for a ride (transportation)? (Household - for ages 0-17 years) Not on file 08/23/2023 Housing Stability Answer Date Recorded Do you currently live in a s helter or have no steady place to sleep at night? No 08/23/2023 READ ONLY Do you think you a re at risk of becoming homeless? No 08/23/2023 Does your family worry about paying for your home or becoming homeless? (Household - for ages 0-17 years) Not on file 0 08/23/2023 Are you homeless or worried that you might be in the future? (Adult - for ages 18 years and over) Not on file Are you (or your family) enrrique eless or worried that you might be in the future? (Household - for ages 0-17 years) Not on file Food Insecurity Answer Date Recorded Do you need food for this week? No 08/23/2023 Are you able to get enough f ood for your family? (Household - for ages 0-17 years) Not on file 08/23/2023 Does your family need food t his week? (Household - for ages 0-17 years) Not on file 08/23/2023 Do you always have enough fo od for your family? (Household - for ages 0-17 years) Not on file 08/23/2023 Sex and Gender Information Value Date Recorded Sex Assigned at Female 05/25/2023 9:53 AM EST Gender Identity Female 05/25/2023 9:53 AM EST Sexual Orientation Straight 08/28/2020 10 :56 AM EDT Job Start Date Occupation Industry Not on file Not on file Not on file documented as of this encounter Miscellaneous Notes * Telephone Encounter - Mari Reeder LPN - 12/07/2023 7:02 AM EDT S/w who says this is not a new thing. "Coming on slowly and it's more forgetful, forgettingshe took meds, or thinks she doesn't have her medications" I confirmed that this was not a new problem, has been slowing getting worse. No new or sudden changes in memory or confusion. He does not let her drive anymore. I asked if there had been more trips to the bathroom, and he did say that she does go to the bathroom more often. Would like her evaluated here, I will do a urine. agrees. Will come to appt. * Telephone Encounter - July Duran CRNP - 12/06/2023 4:45 PM EDT Patient on schedule for fatigue and weakness. If she is having weakness- needs triaged. Potentiallyneeds ER now instead of waiting on appt. King, JULIO, JEWEL [facility] Medicine documented in this encounter Plan of Treatment Upcoming Encounters Date Type Department Care Team (Late st Contact Info) Description 12/07/2023 9:00 AM EDT Office Visit [facility] [address] [address] July Duran CRNP [address] [place] [address] 12/28/2023 10:00 AM EDT Office Visit [facility] [address] [place] [address] Milton Balderas MD [address] [facility] [place] [address] 01/15/2024 9:50 AM EDT Laboratory Laboratory, [place] [address] [place] [id number] [facility] [address] [place] [address] 01/16/2024 9:30 AM EDT Pharmacy Pharmacy, [address] [address] Clinic, [address] [address] 01/30/2024 8:30 AM EDT Office Visit [facility] [place] [address] [facility] [place] [phone] [facility] [place] [address] 02/01/2024 2:30 PM EDT Office Visit Nephrology, [facility] [address] [facility] [place] [address] Zemaitis, Kamini Paz PA-C [address] [facility] [place] [address] Health Maintenance Due Date Last Done Comments Diabetic Eye Exam 12/23/2021 12/23/2020, , 12/19/2019, Additional history exists COVID-19 Vaccine (2022- season) 2023 03/15/2021, 07/15/2020, 06/17/2020 Influenza Vaccine (FLU shot) (#1) 2024 01/17/2023, 03/24/2022, 01/26/2021, Additional history exists Diabetic Foot Exam 05/25/2024 05/25/2023, 0 08/18/2021, 08/27/2020, Additional history exists HbA1c 06/05/2024 12/04/2023, 04/08, 07/26/2022, Additional history exists Depression Screening 08/22/2024 08/23/2023 Albumin/Creatinine Ratio 12/03/2024 024, 08/31/2023, 07/26/2023, Additional history exists TSH 12/03/2024 12/04/2023, 11/06, 10/20/2023, Additional history exists DTaP,Tdap,and Td Vaccines (3 - Td or Tdap) 10/14/2028 10/14/2018, 08/13/2014 Pneumococcal Vaccine: 65+ Years Completed 08/13/2014, 09/29/2010 Zoster Vaccines Completed 03/12/2020, 09/2019, 01/06/2020, Additional history exists HPV (Gardasil) Vaccine Aged Out No lo nger eligible based on patient's age to complete this topic Hepatitis B Vaccine Aged Out No longe r eligible based on patient's age to complete this topic MENINGOCOCCAL (MENACTRA/MENVEO) Aged Out No longer eligible based on patient's age to complete this topic documented as of this encounter Medical Devices Not on filedocumented as of this encounter Additional Health Concerns Infection Onset Date Last Indicated Resolved Time ESBL 10/09/2023 10/09/2023 documented as of this encounter Care Teams Hide Paster Relationship Specialty Start Date End Date Milton Balderas MD [address] [place] [address] PCP - General Family Medicine 10/13/20 documented as of this encounter
--- OUTSIDE RECORDS SUMMARY | 2023-12-07 14:51 | External Medical Summary | Summary of Care ---
Author Name Unknown Organization [facility] Address [address] [place] [address] Phone [phone] Care Team Providers Care Supervisor Carbon Electrodes Name Role Phone Milton Balderas MD Primary Care Provider + Reason for Visit * Reason Comments Outpatient Testing Encounter Details Date Type Department Care Team (Late st Contact Info) Description 12/04/2023 9:50 AM EDT Laboratory Laboratory, [place] [address] [place] [address] [place], Laboratory [address] [place] [address] 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, macular edema presence unspecified, unspecified retinopathy severity ([facility]); Acquired hypothyroidism; Vitamin D deficiency; Type 2 diabetes mellitus with stage 3b chronic kidney disease, without long-term current use of insulin ([facility]); Anemia of chronic renal failure, stage 4 (severe) ([facility]) Allergies Active Allergy Reactions Criticality Noted Date Comments Neville Inhibitors Cough 09/29/2010 Lisinopril causes cough Ciprofloxacin Rash Medium 05/03/2014 Rash with first IV dose in hospital Metformin Diarrhea 09/29/2010 documented as of this encounter (statuses as of 12/04/2023) Medications Medication Sig Dispensed Refills Start Date [...] CHEW) 90 Tablet 3 06/20/2022 Active Nystatin 706314 UNIT/GM External Powder (Nystop)Indication s:Tinea corporis Apply [...] MORNING 90 Tablet 3 02/14/2023 Active Procrit 45637 UNIT/ML Injection SolutionIndication s:Anemia of chronic renal [...] as of this encounter (statuses as of 12/04/2023) Active Problems Problem Noted Date Diagnosed Date [...] Overview: Found on barium swallow, 01/25/2010 at [facility] on CPAP 11/10/2010 Overview: Sleep study on 12/24/2009, [facility], Cpap 8, flex setting 3 AHP ICD-10 update of inactive term History of basal cell cancer 11/10/2010 Overview: BCC, left neck, 12/24/2009 ICD-10 update of inactive term HTN, goal below 130/80 09/29/2010 Dyslipidemia, goal LDL below 100 09/29/2010 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 Pernicious anemia Hypothyroidism GERD (gastroesophageal reflux disease) documented as of this encounter (statuses as of 12/04/2023) Resolved Problems Problem Noted Date Diagnosed Date [...] as of this encounter (statuses as of 12/04/2023) Immunizations Name Administration Dates Next Due COVID-19 mRNA, LNP-s, No Pre serve, 2-Dose Series ([employer]) 03/15/2021,07/15/2020,06/17/2020 Pneumococcal Conjugate Vacc, 13 Valent (Prevnar) [...] Care Team (Late st Contact Info) Description 12/05/2023 9:30 AM EDT Pharmacy Pharmacy, [place] [address] [place] [address] Clinic, [facility] [address] [place] [address] 12/28/2023 10:00 AM EDT Office Visit Family Practice [facility] [address] [place] [address] Milton Balderas MD [address] [place] [address] 01/30/2024 8:30 AM EDT Office Visit Sleep Disorders Ctr [facility] [address] [place] [phone] Lucila Flanagan CRNP [address] [facility] [place] [address] 02/01/2024 2:30 PM EDT Office Visit Nephrology, [facility] Sor[facility] [address] [place] [address] ZemaitisKamini PA-C [address] [place] [address] [address] Pending Results Name Type Priority Associated Diagnoses Date /Time BASIC METABOLIC PANEL Lab Routine 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, macular edema presence unspecified, unspecified retinopathy severity (HCC) 12/04/2023 9:33 AM EDT TSH WITH FREE T4 IF INDICATED Lab Routine Acquired hypothyroidism 12/04/2023 9:33 AM EDT 25-HYDROXY VITAMIN D Lab Routine Vitamin D deficiency 12/04/2023 9:33 AM EDT HEMOGLOBIN A1C Lab Routine Type 2 diabetes mellitus with stage 3b chronic kidney disease, without long-term current use of insulin ([facility]) 12/04/2023 9:33 AM EDT ALBUMIN / CREATININE RATIO, URINE Lab Routine Type 2 diabetes mellitus with stage 3b chronic kidney disease, without long-term current use of insulin ([facility]) 12/04/2023 11:38 AM EDT LIPID PANEL WITH DIRECT LDL IF TG IS HIGH Lab Routine Type 2 diabetes mellitus with stage 3b chronic kidney disease, without long-term current use of insulin ([facility]) 12/04/2023 9:33 AM EDT CBC WITH WBC DIFFERENTIAL AND ANEMIA REFLEX WORKUP Lab Routine Anemia of chronic renal failure, stage 4 (severe) ([facility]) 12/04/2023 9:33 AM EDT ANEMIA CBC Lab Routine Anemia of chronic renal failure, stage 4 (severe) ([facility]) 12/04/2023 9:33 AM EDT DIFFERENTIAL, AUTOMATED Lab Routine Anemia of chronic renal failure, stage 4 (severe) ([facility]) 12/04/2023 9:33 AM EDT ANEMIA REFLEX CHEMISTRY HOLD Lab Routine Anemia of chronic renal failure, stage 4 (severe) ([facility]) 12/04/2023 9:33 AM EDT Health Maintenance Due Date Last Done Comments Diabetic Eye Exam 12/23/2021 12/23/2020, , 12/19/2019, Additional history exists COVID-19 Vaccine ( season) 2023 03/15/2021, 07/15/2020, 06/17/2020 HbA1c 10/27/2023 04/27/2023, 0305/2022, 03/18/2022, Additional history exists Influenza Vaccine (FLU shot) (#1) 2024 01/17/2023, 03/24/2022, 01/26/2021, Additional history exists Diabetic Foot Exam 05/25/2024 05/25/2023, 0 08/18/2021, 08/27/2020, Additional history exists Depression Screening 08/22/2024 08/23/2023 Albumin/Creatinine Ratio 08/30/202408/30/ 024, 07/26/2023, 04/28/2023, Additional history exists TSH 10/19/2024 10/20/2023, 11/2023, 06/19/2023, Additional history exists DTaP,Tdap,and Td Vaccines (3 [...] as of this encounter Visit Diagnoses Diagnosis 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, macular edema presence unspecified, unspecified retinopathy severity (HCC) Acquired hypothyroidism Unspecified hypothyroidism Vitamin D deficiency Unspecified vitamin D deficiency Type 2 diabetes mellitus with stage 3b chronic kidney disease, without long-term current use of insulin (HCC) Anemia of chronic renal failure, stage 4 (severe) (HCC) documented in this encounter Additional Health Concerns Infection Onset Date Last Indicated Resolved Time ESBL 10/09/2023 10/09/2023 documented as of this encounter Care Teams Supervisor [employer] Relationship Specialty Start Date End Date Milton Balderas MD [address] [place] [address] PCP - General Family Medicine 10/13/20 documented as of this encounter
--- OUTSIDE RECORDS SUMMARY | 2023-12-07 14:51 | External Medical Summary | Summary of Care ---
Author Name Unknown Organization [facility] Address [address] [place] [address] Phone [phone] Care Team Providers Care Caregiver Assisted Living Name Role Phone Milton Balderas MD Primary Care Provider + Reason for Visit * Reason Onset Date Comments Anemia Follow-Up 12/06/2023 Encounter Details Date Type Department Care Team (Late st Contact Info) Description 12/05/2023 9:30 AM EDT Pharmacy Pharmacy, [place] [address] [place] [address] Clinic, [place] [address] [place] [address] Anemia of chronic renal failure, stage 4 (severe) ([facility])* Allergies Active Allergy Reactions Criticality Noted Date Comments Neville Inhibitors Cough 09/29/2010 Lisinopril causes cough Ciprofloxacin Rash Medium 05/03/2014 Rash with first IV dose in hospital Metformin Diarrhea 09/29/2010 documented as of this encounter (statuses as of 12/06/2023) Medications Medication Sig Dispensed Refills Start Date [...] CHEW) 90 Tablet 3 06/20/2022 Active Nystatin 917273 UNIT/GM External Powder (Nystop)Indication s:Tinea corporis Apply [...] MORNING 90 Tablet 3 02/14/2023 Active Procrit 63389 UNIT/ML Injection SolutionIndication s:Anemia of chronic renal [...] as of this encounter (statuses as of 12/06/2023) Active Problems Problem Noted Date Diagnosed Date [...] Overview: Found on barium swallow, 01/25/2010 at [facility] on CPAP 11/10/2010 Overview: Sleep study on 12/24/2009, [facility], Cpap 8, flex setting 3 AHP ICD-10 update of inactive term History of basal cell cancer 11/10/2010 Overview: BCC, left neck, 12/24/2009 ICD-10 update of inactive term HTN, goal below 130/80 09/29/2010 Dyslipidemia, goal LDL below 100 09/29/2010 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 Pernicious anemia Hypothyroidism GERD (gastroesophageal reflux disease) documented as of this encounter (statuses as of 12/06/2023) Resolved Problems Problem Noted Date Diagnosed Date [...] as of this encounter (statuses as of 12/06/2023) Immunizations Name Administration Dates Next Due COVID-19 [...] this encounter Progress Notes * Capo Treviño, [facility] - 12/06/2023 3:05 PM EDT Patient Phone Numbers Called and spoke with Ekta to review labs from 12/04/23. Hgb is within target range. Iron studies adequate. B12/FA levels within target range. Patient reports she gets tired easily, but otherwise denies signs/symptoms of anemia. Plan: Continue Procrit 10,000 units SQ [id number]. Last dose: Procrit 10,000 units SQ on 10/31/23 Next dose: Procrit 10,000 units SQ on ~12/12/23 Called to refill prescription Confirmation# [id number] - EXP Scripts New or recurrent malignancy? none reported Follow-up [facility] scheduled for 01/15/24 at [place]. Capo Treviño, PharmD, [facility] Clinical Pharmacist Anemia Clinic P: [phone] F: [phone] 12/06/2023 3:09 PM Lab Results Component Value Date/Time HGB 10.9 (L) 12/04/2023 09:33 AM HGB 10.7 (L) 10/20/2023 10:25 AM HGB 11.8 (L) 09/12/2023 10:30 AM HGB 10.6 (A) 03/20/2022 12:00 AM HGB 10.2 (L) 05/18/2020 11:02 AM HGB 9.8 (L) 04/13/2020 10:53 AM HGB 10.5 (L) 03/16/2020 10:39 AM No results found for: "HEMOGLOBIN-OUTSIDE LAB" Results for orders placed or performed in visit on 12/04/23 IRON SCREEN, INCLUDING TIBC Result Value Ref Range Iron 153 (H) 33 - 151 ug/dL Iron Binding Capacity 299 250 - 425 ug/dL Transferrin Saturation Percent 51 15 - 55 % Results for orders placed or performed in visit on 10/20/23 IRON SCREEN, INCLUDING TIBC Result Value Ref Range Iron 107 33 - 151 ug/dL Iron Binding Capacity 365 250 - 425 ug/dL Transferrin Saturation Percent 29 15 - 55 % Results for orders placed or performed in visit on 09/12/23 IRON SCREEN, INCLUDING TIBC Result Value Ref Range Iron 158 (H) 33 - 151 ug/dL Iron Binding Capacity 302 250 - 425 ug/dL Transferrin Saturation Percent 52 15 - 55 % No results found for: "TRANSFERRIN SAT %-OUTSIDE LAB" Lab Results Component Value Date/Time FERRITIN - [facility] 521 (H) 12/04/2023 09:33 AM FERRITIN - [facility] 653 (H) 10/20/2023 10:25 AM F[facility]ITIN - [facility] 503 (H) 09/12/2023 10:30 AM FERRITIN - [facility] 697.3 (H) 05/18/2020 11:02 AM F[facility]ITIN - [facility] 784.3 (H) 04/13/2020 10:53 AM F[facility]ITIN - [facility] 729.7 (H) 02/17/2020 10:24 AM No results found for: "FERRITIN-OUTSIDE LAB" documented in this encounter Plan of Treatment Upcoming Encounters Date Type Department Care Team (Late st Contact Info) Description 12/07/2023 9:00 AM EDT Office Visit [facility] [address] [place] [address] July Duran CRNP [address] [place] [address] 12/28/2023 10:00 AM EDT Office Visit [facility] [address] [place] [address] Milton Balderas MD [address] [place] [address] 01/15/2024 9:50 AM EDT Laboratory [address] [place] [phone] [place], Laboratory [address] [place] [address] 01/16/2024 9:30 AM EDT Pharmacy Pharmacy, [place] [address] [place] [address] Clinic, [place] [address] [place] [address] 01/30/2024 8:30 AM EDT Office Visit Sleep Disorders Ctr [facility] [place] [address] [facility] [place] [phone] Lucila Flanagan CRNP [address] [facility] [place] [address] 02/01/2024 2:30 PM EDT Office Visit Nephrology, [facility] [address] [place] [address] Zemaitis, Kamini Paz PA-C [address] [facility] [place] [address] Scheduled Orders Name Type Priority Associated Diagnoses Orde r Schedule CBC WITH WBC DIFFERENTIAL AND ANEMIA REFLEX WORKUP Lab Routine Anemia of chronic renal failure, stage 4 (severe) (HCC) Expected: 01/15/2024 (Approximate), Expires: 01/05/2025 Health Maintenance Due Date Last Done Comments Diabetic Eye Exam 12/23/2021 12/23/2020, , 12/19/2019, Additional history exists COVID-19 Vaccine ( season) 2023 03/15/2021, 07/15/2020, 06/17/2020 Influenza Vaccine (FLU shot) (#1) 2024 01/17/2023, 03/24/2022, 01/26/2021, Additional history exists Diabetic Foot Exam 05/25/2024 05/25/2023, 0 08/18/2021, 08/27/2020, Additional history exists HbA1c 06/05/2024 12/04/2023, 12/2 05/2022, 07/26/2022, Additional history exists Depression Screening 08/22/2024 [...] (severe) (HCC)- Primary documented in this encounter Additional Health Concerns Infection Onset Date Last Indicated Resolved Time ESBL 10/09/2023 10/09/2023 documented as of this encounter Care Teams Caregiver Assisted Living Relationship Specialty Start Date End Date Milton Balderas MD [address] [place] [address] PCP - General Family Medicine 10/13/20 documented as of this encounter
--- OUTSIDE RECORDS SUMMARY | 2023-12-07 14:52 | External Medical Summary ---
Author Name Unknown Address Unknown Organization [id number]:[facility]ORY [facility] - [facility] [address] [place] [address] Laboratory Report Ordering Provider Test Date Status ANNAMARIE ROMANO 12/04/2023 09:33:24 Final Observation Date Value Abnormality Reference (Units ) Status BUN 12/04/2023 09:33:24 32 Above high normal 6-20 (mg/dL) Final Creatinine 12/04/2023 09:33:24 1.5 Above high normal 0.5-1.0 (mg/dL) Final Glomerular filtration rate/1.73 sq M.predicted [Volume Rate/Area] in Serum, Plasma or Blood by Creatinine-based formula (CKD-EPI) 12/04/2023 09:33:24 33 Below low normal >=60 (mL/min) Final eGFR is calculated based on the CKD-EPI 2020 equation. Sodium 12/04/2023 09:33:24 142 135-146 (m mol/L) Final Potassium 12/04/2023 09:33:24 4.1 3.5-5.1 (m mol/L) Final Cl 12/04/2023 09:33:24 105 98-107 (mm ol/L) Final CO2 12/04/2023 09:33:24 25 22-32 (mmo l/L) Final Anion gap 12/04/2023 09:33:24 12 7-15 (mmol /L) Final Glucose 12/04/2023 09:33:24 150 Above high normal 70 -120 (mg/dL) Final Calcium 12/04/2023 09:33:24 10.0 8.4-10.2 ( mg/dL) Final Performing Location [facility] - [address] [place] [address]
--- OUTSIDE RECORDS SUMMARY | 2023-12-07 14:52 | External Medical Summary ---
Author Name Unknown Address Unknown Organization [id number]:LABORATORY [facility] - [address] [place] [address] Laboratory Report Ordering Provider Test Date Status STU LANDERS 12/04/2023 09:33:24 Final Observation Date Value Abnormality Reference (Units ) Status WBC, Total 12/04/2023 09:33:24 7.67 4.00-10.8 0 (K/uL) Final RBC 12/04/2023 09:33:24 3.59 3.85-5.15 (M/uL) Final Hemoglobin 12/04/2023 09:33:24 10.9 Below low normal 12 .0-15.3 (g/dL) Final Anemia reflex testing trigge rs on a HGB < 12.0 for Females and HGB < 13.0 for Males in accordance with the WHO Anemia Guidelines
Anemia reflex testing triggers on a HGB < 12.0 for Females and HGB < 13.0 for Males in accordance with the WHO Anemia Guidelines HCT 12/04/2023 09:33:24 33.4 Below low normal 36. 0-45.2 (%) Final MCV 12/04/2023 09:33:24 93.0 81.5-97.5 (fL) Final MCH 12/04/2023 09:33:24 30.4 27.0-34.0 (pg) Final MCHC 12/04/2023 09:33:24 32.6 32.0-36.0 (g/dL) Final RDW 12/04/2023 09:33:24 12.8 11.5-15.5 (%) Final Platelets 12/04/2023 09:33:24 201 140-400 (K /uL) Final MPV 12/04/2023 09:33:24 11.1 6.6-11.1 ( fL) Final Nucleated erythrocytes/100 leukocytes [Ratio] in Blood by Automated count 12/04/2023 09:33:24 0 <=0 (/100 WBCs) Final Performing Location LAB[facility]ATORY [facility] - [facility] [address] [facility] [address]
--- OUTSIDE RECORDS SUMMARY | 2023-12-07 14:52 | External Medical Summary | Summary of Care ---
Author Name Unknown Organization [facility] Address [address] [place] [address] Phone [phone] Care Team Providers Care Wash Tank Tender Name Role Phone Milton Balderas MD Primary Care Provider + Reason for Visit * Reason Comments Outpatient Testing Encounter Details Date Type Department Care Team (Late st Contact Info) Description 12/04/2023 9:50 AM EDT Laboratory Laboratory, [place] [address] [place] [address] [place], Laboratory [address] [place] [address] 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, macular edema presence unspecified, unspecified retinopathy severity ([facility]); Acquired hypothyroidism; Vitamin D deficiency; Type 2 diabetes mellitus with stage 3b chronic kidney disease, without long-term current use of insulin ([facility]); Anemia of chronic renal failure, stage 4 (severe) ([facility]) Allergies Active Allergy Reactions Criticality Noted Date [...] CHEW) 90 Tablet 3 06/20/2022 Active Nystatin 504661 UNIT/GM External Powder (Nystop)Indication s:Tinea corporis Apply [...] MORNING 90 Tablet 3 02/14/2023 Active Procrit 72844 UNIT/ML Injection SolutionIndication s:Anemia of chronic renal [...] Overview: Found on barium swallow, 01/25/2010 at [facility] on CPAP 11/10/2010 Overview: Sleep study on 12/24/2009, [facility], Cpap 8, flex setting 3 AHP ICD-10 [...] mRNA, LNP-s, No Pre serve, 2-Dose Series ([employer] 03/15/2021,07/15/2020,06/17/2020 Pneumococcal Conjugate Vacc, 13 Valent (Prevnar) [...] Description 12/05/2023 9:30 AM EDT Pharmacy Pharmacy, [place] [address] [place] [address] Clinic, [facility] [address] [place] [address] 12/28/2023 10:00 AM EDT Office Visit Family Practice [facility] [address] [place] [address] Milton Balderas MD [address] [place] [address] 01/30/2024 8:30 AM EDT Office Visit Sleep Disorders Ctr [facility] [address] [place] [phone] Lucila Flanagan CRNP [address] [facility] [place] [address] 02/01/2024 2:30 PM EDT Office Visit Nephrology, [facility] [address] [place] [address] ZemaitisaKmini PA-C [address] [place] [address] [address] Pending Results Name Type Priority Associated Diagnoses [...] without long-term current use of insulin ([facility]) 12/04/2023 9:33 AM EDT LIPID PANEL WITH DIRECT LDL IF TG IS HIGH Lab Routine Type 2 diabetes mellitus with stage 3b chronic kidney disease, without long-term current use of insulin ([facility]) 12/04/2023 9:33 AM EDT CBC WITH WBC DIFFERENTIAL AND ANEMIA REFLEX WORKUP Lab Routine Anemia of chronic renal failure, stage 4 (severe) ([facility]) 12/04/2023 9:33 AM EDT ANEMIA CBC Lab Routine Anemia of chronic renal failure, stage 4 (severe) ([facility]) 12/04/2023 9:33 AM EDT DIFFERENTIAL, AUTOMATED Lab Routine Anemia of chronic renal failure, stage 4 (severe) ([facility]) 12/04/2023 9:33 AM EDT ANEMIA REFLEX CHEMISTRY HOLD Lab Routine Anemia of chronic renal failure, stage 4 (severe) ([facility]) 12/04/2023 9:33 AM EDT Health Maintenance Due [...] exists Depression Screening 08/22/2024 08/23/2023 Albumin/Creatinine Ratio 08/30/202408/30/2 024, 07/26/2023, 04/28/2023, Additional history exists TSH 10/19/2024 10/20/2023, 05/0 11/2023, 06/19/2023, Additional history exists DTaP,Tdap,and Td [...] documented as of this encounter Care Teams Wash Tank Tender Relationship Specialty Start Date End Date Milton Balderas MD [address] [place] [address] PCP - General Family Medicine 10/13/20 documented as of this encounter
--- OUTSIDE RECORDS SUMMARY | 2023-12-07 14:52 | External Medical Summary ---
Author Name Unknown Address Unknown Organization [id number]:[facility] - [facility] [address] [place] [address] Laboratory Report Ordering Provider Test Date Status ANNAMARIE ROMANO 12/04/2023 11:38:40 Final Normal: <30 mg/g creatinine< br/>High: 30-300 mg/g creatinine
Very High: >300 mg/g creatinine
Nephrotic: >2200 mg/g creatinine Observation Date Value Abnormality Reference (Units ) Status Albumin, Urine 12/04/2023 11:38:40 119.24 (mg/dL) Final Creatinine, Urine 12/04/2023 11:38:40 179 (mg/dL) Final Albumin/Creatinine [Mass Ratio] in Urine 12/04/2023 11:38:40 666 Above high normal <30 (mg/g Creat) Final Performing Location [facility] - [facility] [address] [place] [address]
--- OUTSIDE RECORDS SUMMARY | 2023-12-07 14:52 | External Medical Summary | Summary of Care ---
Author Name Unknown Organization [facility] Address [address] [place] [address] Phone [phone] Care Team Providers Care Gas Appliance Servicer Helper Name Role Phone Milton Balderas MD Primary Care Provider + Reason for Visit * Reason Onset Date Comments MyCode Nonconsent - Not interested at this time 12/04/2023 Encounter Details Date Type Department Care Team (Late st Contact Info) Description 12/04/2023 Orders Only Outcomes Research Department [address], [place] [phone] Naa Guerrero CHRA MyCode Nonconsent Documentation Allergies Active Allergy Reactions Criticality Noted Date [...] CHEW) 90 Tablet 3 06/20/2022 Active Nystatin 080322 UNIT/GM External Powder (Nystop)Indication s:Tinea corporis Apply [...] MORNING 90 Tablet 3 02/14/2023 Active Procrit 94757 UNIT/ML Injection SolutionIndication s:Anemia of chronic renal [...] Overview: Found on barium swallow, 01/25/2010 at [facility] on CPAP 11/10/2010 Overview: Sleep study on 12/24/2009, [facility], Cpap 8, flex setting 3 AHP ICD-10 [...] mRNA, LNP-s, No Pre serve, 2-Dose Series ([employer]) 03/15/2021,07/15/2020,06/17/2020 Pneumococcal Conjugate Vacc, 13 Valent (Prevnar) [...] as of this encounter Progress Notes * Naa Guerrero CHRA - 12/04/2023 9:33 AM EDT MyCode Nonconsent Documentation Ekta Francisco was approached in the clinic regarding participation in the MyCode Project and didnot consent. documented in this encounter Plan of Treatment Upcoming Encounters Date Type Department Care Team (Late st Contact Info) Description 12/04/2023 9:50 AM EDT Laboratory Laboratory, [place] [address] [place] [address] [facility] [address] [place] [address] 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, macular edema presence unspecified, unspecified retinopathy severity (HCC); Acquired hypothyroidism; Vitamin D deficiency; Type 2 diabetes mellitus with stage 3b chronic kidney disease, without long-term current use of insulin (HCC); Anemia of chronic renal failure, stage 4 (severe) (HCC) 12/05/2023 9:30 AM EDT Pharmacy Pharmacy, [place] [address] [place] [address] Clinic, [facility] [address] [place] [address] 12/28/2023 10:00 AM EDT Office Visit Family Practice [facility] [address] [address] Milton Balderas MD [address] [place] [address] 01/30/2024 8:30 AM EDT Office Visit Sleep Disorders Ctr [facility] [address] [phone] Lucila Flanagan CRNP [address] [address] 02/01/2024 2:30 PM EDT Office Visit Nephrology, [place] Soriano [address] [place], [place] [address] ZeKamini hodges PA-C [address] [place] [address] Health Maintenance Due Date Last Done Comments Diabetic Eye Exam 12/23/2021 12/23/2020, , 12/19/2019, Additional history exists COVID-19 Vaccine ( season) 2023 03/15/2021, 07/15/2020, 06/17/2020 HbA1c 10/27/2023 04/27/2023, 07/07, 03/18/2022, Additional history exists Influenza Vaccine (FLU [...] Completed 03/12/2020, 1109/2019, 01/06/2020, Additional history exists HPV (Gardasil) Vaccine [...] documented as of this encounter Care Teams Gas Appliance Servicer Helper Relationship Specialty Start Date End Date Milton Balderas MD [address] [place] [address] PCP - General Family Medicine 10/13/20 documented as of this encounter
--- OUTSIDE RECORDS SUMMARY | 2023-12-07 14:52 | External Medical Summary ---
Author Name Unknown Address Unknown Organization [id number]:LABORATORY [facility] [place] - [address] [place] [address] Laboratory Report Ordering Provider Test Date Status STU LANDERS 12/04/2023 09:33:24 Final Observation Date Value Abnormality Reference (Units ) Status Vitamin B12 12/04/2023 09:33:24 >2000 Above high normal 232-1245 (pg/mL) Final Performing Location LABORATORY C - [address] [place] [address]
--- OUTSIDE RECORDS SUMMARY | 2023-12-07 14:52 | External Medical Summary ---
Author Name Unknown Address Unknown Organization [id number]:LABORATORY [place] [address] [place] [address] Laboratory Report Ordering Provider Test Date Status STU LANDERS 12/04/2023 09:33:24 Final Observation Date Value Abnormality Reference (Units ) Status Retic, % (auto) 12/04/2023 09:33:24 1.77 0.80-1.90 (%) Final Reticulocytes, Absolute 12/04/2023 09:33:24 63.4 31.3-100.1 (K/uL) Final Reticulocyte fraction, immature 12/04/2023 09:33:24 21.0 Above high normal 2.5-20.6 (%) Final Reticulocyte HGB 12/04/2023 09:33:24 33.1 29.7-37.4 (pg) Final Performing Location LABORATORY [facility] [place] - [facility] [address] [place] [address]
--- OUTSIDE RECORDS SUMMARY | 2023-12-07 14:52 | External Medical Summary ---
Author Name Unknown Address Unknown Organization [id number]:LABORATORY [facility] [place] - [address] [place] [address] Laboratory Report Ordering Provider Test Date Status MAGGIE LANDERSOSIRIS 12/04/2023 09:33:24 Final Observation Date Value Abnormality Reference (Units ) Status Ferritin 12/04/2023 09:33:24 521 Above high normal 13 -150 (ng/mL) Final Postmenopausal women have hi gher ferritin levels than pre-menopausal women. The above reference interval is based on pre-menopausal women. Performing Location LABORATORY [facility] - [address] [place] [address]
--- OUTSIDE RECORDS SUMMARY | 2023-12-07 14:52 | External Medical Summary ---
Author Name Unknown Address Unknown Organization [id number]:LABORATORY [facility] [place] - [address] [facility] [place] [address] Laboratory Report Ordering Provider Test Date Status STU LANDERS 12/04/2023 09:33:24 Final Observation Date Value Abnormality Reference (Units ) Status SYNC LEUKOCYTES IN BLOOD BY AUTOMATED COUNT 12/04/2023 09:33:24 7.67 4.00-10.80 (K/uL) Final Segs 12/04/2023 09:33:24 50.3 40.0-75.0 (%) Final Lymphs % 12/04/2023 09:33:24 35.1 18.0-42.0 (%) Final Monos 12/04/2023 09:33:24 9.3 1.0-11.0 (%) Final Eosinophils 12/04/2023 09:33:24 4.0 0.0-6.0 (%) Final Basos 12/04/2023 09:33:24 1.0 0.0-2.0 (%) Final Immature Granulocyte, Percent 12/04/2023 09:33:24 0.3 0.0-2.0 (%) Final Absolute Segs 12/04/2023 09:33:24 3.86 1.80-7.70 (K/uL) Final Lymphs, absolute 12/04/2023 09:33:24 2.69 1.00-4.80 (K/ul) Final Monos, Abs 12/04/2023 09:33:24 0.71 0.00-1.10 (K/uL) Final Eos, Abs 12/04/2023 09:33:24 0.31 0.00-0.70 (K/uL) Final Basos, Abs 12/04/2023 09:33:24 0.08 0.00-0.20 (K/uL) Final Immature Granulocytes, Number 12/04/2023 09:33:24 0.02 0.00-0.20 (K/uL) Final Performing Location LABORATORY [facility] [place] - [facility] [address] [facility] [address]
--- OUTSIDE RECORDS SUMMARY | 2023-12-07 14:52 | External Medical Summary ---
Author Name Unknown Address Unknown Organization [id number]:LABORATORY [facility] [place] - [address] [facility] [address] Laboratory Report Ordering Provider Test Date Status RIK ROMANOPREET 12/04/2023 09:33:24 Final Observation Date Value Abnormality Reference (Units ) Status HbA1C 12/04/2023 09:33:24 6.4 Above high normal 4. 0-5.6 (%) Final The use of HbA1c to monitor glycemic status is based on normal hemoglobin and HbA composition. This test should not be used in patients with abnormal hemoglobin that affects the half life of the red blood cell or the in vivo glycation rates. Glucose, estimated average 12/04/2023 09:33:24 137 Above high normal <126 (mg/dL) Harjinder be Performing Location LABORATORY [facility] [place] - [address] [facility] [place] [address]
--- OUTSIDE RECORDS SUMMARY | 2023-12-07 14:52 | External Medical Summary ---
Author Name Unknown Address Unknown Organization K01:[facility] [place] [address] [place] [address] Laboratory Report Ordering Provider Test Date Status ROSALINARIKPREET 12/04/2023 09:33:24 Final Deficient: <20 ng/mL
Ins ufficient: 20-29 ng/mL
Recommended/Optimum:30-50 ng/mL

Vitamin D intoxication is rare. If suspicious of Vitamin D toxicity, evaluation of serum Calcium and PTH is recommended. Observation Date Value Abnormality Reference (Units ) Status 25-OH Vitamin D total 12/04/2023 09:33:24 24 >19 (ng/mL) Final Performing Location LABORATORY C - [address] [place] [address]
--- OUTSIDE RECORDS SUMMARY | 2023-12-07 14:52 | External Medical Summary ---
Author Name Unknown Address Unknown Organization K01:[facility] [place] [address] [place] [address] Laboratory Report Ordering Provider Test Date Status ROSALINARIKPREET 12/04/2023 09:33:24 Final Observation Date Value Abnormality Reference (Units ) Status TSH 12/04/2023 09:33:24 3.39 0.27-4.20 (uIU/mL) Final Performing Location LABORATORY [facility] - [address] [place] [address]
--- OUTSIDE RECORDS SUMMARY | 2023-12-07 14:52 | External Medical Summary ---
Author Name Unknown Address Unknown Organization K01:LABORATORY [facility] [place] - [address] [place] [address] Laboratory Report Ordering Provider Test Date Status STU LANDERS 12/04/2023 09:33:24 Final Observation Date Value Abnormality Reference (Units ) Status Iron 12/04/2023 09:33:24 153 Above high normal 33-151 (ug/dL) Final Iron-binding capacity 12/04/2023 09:33:24 299 250-425 (ug/dL) Final Transferrin Sat % 12/04/2023 09:33:24 51 15-55 (%) Final Performing Location LABORATORY [facility] [place] - [address] [place] [address]
--- OUTSIDE RECORDS SUMMARY | 2023-12-07 14:52 | External Medical Summary ---
Author Name Unknown Address Unknown Organization K01:[facility] [address] [facility] [address] Laboratory Report Ordering Provider Test Date Status ANNAMARIE ROMANO 12/04/2023 09:33:24 Final Observation Date Value Abnormality Reference (Units ) Status Triglyceride 12/04/2023 09:33:24 102 <=174 ( mg/dL) Final Triglyceride Reference Range s (mg/dL):
<150 Acceptable
150-174 Borderline high
175-499 High
>=500 Very high Cholesterol 12/04/2023 09:33:24 209 Above high normal <200 (mg/dL) Final Total Cholesterol Reference Ranges (mg/dL):
<200 Desirable
200-239 Borderline high
>=240 High HDL 12/04/2023 09:33:24 59 >49 (mg/dL ) Final HDL Cholesterol Reference Ra nges (mg/dL):
>=60 High (Desirable)
<50 Low (Undesirable) For Females
<40 Low (Undesirable) For Males NON-HDL CHOLESTEROL 12/04/2023 09:33:24 150 <=159 (mg/dL) Final Non-HDL Cholesterol Referenc e Range (mg/dL):
<100 Target level for high risk ASCVD patient
<130 Optimal for general population
130-159 Near optimal for general population
160-189 Borderline High
190-219 High
>=220 Very High LDL, (calculated) 12/04/2023 09:33:24 130 Above high n ormal <=129 (mg/dL) Final LDL Cholesterol Reference Ra nges (mg/dL):
<70 Target level for high risk ASCVD patient
<100 Optimal for general population
100-129 Near optimal for general population
130-159 Borderline high
160-189 High
>=190 Very high Performing Location LABORATORY [facility] [place] - [address] [facility] [address]
--- OUTSIDE RECORDS SUMMARY | 2023-12-07 14:52 | External Medical Summary ---
Author Name Unknown Address Unknown Organization K01:LABORATORY [facility] [place] - [address] [place] [address] Laboratory Report Ordering Provider Test Date Status STU LANDERS 12/04/2023 09:33:24 Final Observation Date Value Abnormality Reference (Units ) Status TSH 12/04/2023 09:33:24 3.49 0.27-4.20 (uIU/mL) Final Performing Location LABORATORY [facility] - [address] [place] [address]
--- OUTSIDE RECORDS SUMMARY | 2023-12-07 14:53 | External Medical Summary | Summary of Care ---
Author Name Unknown Organization [facility] Address [address] [place] [address] Phone [phone] Care Team Providers Care Stock Tracer Name Role Phone Milton Balderas MD Primary Care Provider + Reason for Visit * Reason Onset Date Comments Other 07/31/2023 Encounter Details Date Type Department Care Team (Late st Contact Info) Description 07/31/[address] [facility] [address], [place] [phone] Clinic, Anemia [address], [place] [phone] Other Allergies Active Allergy Reactions Criticality Noted Date Comments Neville Inhibitors Cough 09/29/2010 Lisinopril causes cough Ciprofloxacin Rash Medium 05/03/2014 Rash with first IV dose in hospital Metformin Diarrhea 09/29/2010 documented as of this encounter (statuses as of 10/30/2023) Medications Medication Sig Dispensed Refills Start Date [...] CHEW) 90 Tablet 3 06/20/2022 Active Nystatin 964000 UNIT/GM External Powder (Nystop)Indicatio ns:Tinea corporis Apply [...] MORNING 90 Tablet 3 02/14/2023 Active Procrit 82542 UNIT/ML Injection SolutionIndicatio ns:Anemia of chronic renal [...] as of this encounter (statuses as of 10/30/2023) Active Problems Problem Noted Date Diagnosed Date [...] Found on barium swallow, 01/25/2010 at [facility] on CPAP 11/10/2010 Overview: Sleep study on 12/24/2009, [facility], Cpap 8, flex setting 3 AHP ICD-10 update of inactive term History of basal cell cancer 11/10/2010 Overview: BCC, left neck, 12/24/2009 ICD-10 update of inactive term HTN, goal below 130/80 09/29/2010 Dyslipidemia, goal LDL below 100 09/29/2010 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 source of income? (Household - for ages [...] Notes * Telephone Encounter - Magdalene Gonzalez OSA - 07/31/2023 9:05 AM EDT Caller's name: ekta Maxwell call back number(OFFICE NUMBER FOR ): [phone] Reason for call: please call regarding labs Thank you, Magdalene Gonzalez Rehab Director Occupational Therapist [facility] ([facility]) (Formerly Telepharmacy) 07/31/2023,9:05 AM documented in this encounter Plan of Treatment Upcoming Encounters Date Type Department Care Team (Late st Contact Info) Description 12/04/2023 9:50 AM EDT Laboratory Laboratory, [place] [address] [place] [address] [facility] [address] [place] [address] 12/05/2023 9:30 AM EDT Pharmacy Pharmacy, [address] [id number] [address] [address] 12/28/2023 10:00 AM EDT Office Visit Family Practice [facility] [address] [facility] [place] [address] Milton Balderas MD [address] [facility] [place] [address] 01/30/2024 8:30 AM EDT Office Visit Sleep Disorders Ctr [facility] [address] [facility] [place] [phone] Lucila Flanagan CRNP [address] [facility] [place] [address] 02/01/2024 2:30 PM EDT Office Visit Nephrology, [place] [address] [place] [address] ZemaKamini wolf PA-C [address] [place] [address] Health Maintenance Due Date Last Done Comments Diabetic Eye Exam 12/23/2021 12/23/2020, , 12/19/2019, Additional history exists COVID-19 Vaccine (2022-24 season) 2023 03/15/2021, 07/15/2020, 06/17/2020 HbA1c 10/27/2023 04/27/2023, 032 05/2022, 03/18/2022, Additional history exists Diabetic Foot Exam 05/25/2024 05/25/2023, 0 08/18/2021, 08/27/2020, Additional history exists Depression Screening 08/22/2024 08/23/2023 Albumin/Creatinine Ratio 08/30/2024 024, 07/26/2023, 04/28/2023, Additional history exists TSH 10/19/2024 10/20/2023, 0 11/2023, 06/19/2023, Additional history exists DTaP,Tdap,and Td Vaccines (3 - Td or Tdap) 10/14/2028 10/14/2018, 08/13/2014 Pneumococcal Vaccine: 65+ Years Completed 08/13/2014, 09/29/2010 Zoster Vaccines Completed 03/12/2020, 0 09/2019, 01/06/2020, Additional history exists Influenza Vaccine [...] documented as of this encounter Care Teams Stock Tracer Relationship Specialty Start Date End Date Milton Balderas MD [address] [place] [address] PCP - General Family Medicine 10/13/20 documented as of this encounter
--- OUTSIDE RECORDS SUMMARY | 2023-12-07 14:53 | External Medical Summary | Summary of Care ---
Author Name Unknown Organization [facility] Address [address] [place] [address] Phone [phone] Care Team Providers Care Fireman Helper Name Role Phone Milton Balderas MD Primary Care Provider + Reason for Visit * Reason Comments Hospital Follow-Up [facility] 10/14-10/16: SOL, elevated LVT's Encounter Details Date Type Department Care Team (Late st Contact Info) Description 10/27/2023 10:40 AM EDT Office Visit Family Practice [facility] [address] [place] [address] Milton Balderas MD [address] [place] [id number] SOL (acute kidney injury) (HCC)*; Urinary tract infection without hematuria, site unspecified; Elevated LFTs; Recurrent UTI Allergies Active Allergy Reactions Criticality Noted Date Comments Neville Inhibitors Cough 09/29/2010 Lisinopril causes cough Ciprofloxacin Rash Medium 05/03/2014 Rash with first IV dose in hospital Metformin Diarrhea 09/29/2010 documented as of this encounter (statuses as of 10/27/2023) Medications Medication Sig Dispensed Refills Start Date [...] CHEW) 90 Tablet 3 06/20/2022 Active Nystatin 245893 UNIT/GM External Powder (Nystop)Indicatio ns:Tinea corporis Apply [...] MORNING 90 Tablet 3 02/14/2023 Active Procrit 85971 UNIT/ML Injection SolutionIndicatio ns:Anemia of chronic renal [...] 10/17/2023 Active Estradiol 0.1 MG/GM Vaginal Cream (Estrace)Indicati ons:Recurrent UTI Use 1gm nightly -rub around vaginal opening and use inside , for 2 weeks. Then use twice weekly. 42.5 g 3 10/27/2023 Active Losartan Potassium 50 MG Oral Tablet (Cozaar)Indicatio ns:HTN, goal below 130/80 Take 1 Tablet by mouth in the morning. 90 Tablet 3 09/11/2023 4 Discontinu ed(Medicat ion List Clean Up) documented as of this encounter (statuses as of 10/27/2023) Active Problems Problem Noted Date Diagnosed Date [...] Found on barium swallow, 01/25/2010 at [facility] on CPAP 11/10/2010 Overview: Sleep study on 12/24/2009, [facility], Cpap 8, flex setting 3 AHP ICD-10 update of inactive term History of basal cell cancer 11/10/2010 Overview: BCC, left neck, 12/24/2009 ICD-10 update of inactive term HTN, goal below 130/80 09/29/2010 Dyslipidemia, goal LDL below 100 09/29/2010 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 Pernicious anemia Hypothyroidism GERD (gastroesophageal reflux disease) documented as of this encounter (statuses as of 10/27/2023) Resolved Problems Problem Noted Date Diagnosed Date [...] as of this encounter (statuses as of 10/27/2023) Immunizations Name Administration Dates Next Due COVID-19 mRNA, LNP-s, No Pre serve, 2-Dose Series ([employer]) 03/15/2021,07/15/2020,06/17/2020 Pneumococcal Conjugate Vacc, 13 Valent (Prevnar) [...] Sign Reading Time Taken Comments Blood Pressure 126/74 10/27/2023 10:38 AM EDT Pulse 69 10/27/2023 10:38 AM EDT Temperature - - Respiratory Rate 16 10/27/2023 10:38 AM EDT Oxygen Saturation 97% 10/27/2023 10:38 AM EDT Inhaled Oxygen Concentration - - Weight - - Height - - Body Mass Index - - documented in this encounter Progress Notes * Milton Balderas MD - 10/27/2023 11:05 AM EDT SUBJECTIVE: Ekta Francisco is a 88 year old female here for Hospital Follow-Up ([facility] 10/14- 10/16: SOL, elevated LVT's) . Here for hosp f/u with . Admit [facility] 10/15/23 d/c 10/17/23. Patient was admitted on September 27 with weakness and possible urine infection was discharged on Omnicef. Return to the ER on October 10 withdysuria for 3 days. Also was seen in our office. Discharged on Keflex but culture came back with ESBL. She was then prescribed Bactrim as it was sensitive to Bactrim. Patient about worsening weakness, decreased appetite, harder time walking and generally not feeling well. On this admission she would SOL and increased LFTs. ER empirically gave IV meropenem. Was admitted. Losartan was held due to her SOL. Bactrim may have been contributing so that was stopped. She was treated with IV fluids. Creatinine down trended from 2 to 1.69. baseline 1.4-1.7. She had some hyperbilirubinemia and elevated AST ALT. Gallbladder ultrasound did not show any abnormality. Liver enzymes trended down. ESBL from October 10 culture was treated with meropenem and Invanz. Blood cultures were negative. She completed her course during the hospitalization ramirez. She has been feeling well since she has been home no dysuria no frequency. Slightly more unsteady gait per but still walking well without a [id number]. No fever, chills, chest pain, shortness of breath, headache, nausea, vomit, diarrhea, constipation or vision changes ROS: Negative except above. Past Medical History: Diagnosis Date GERD (gastroesophageal reflux disease) severe on 2011 swallow study History of 2019 novel coronavirus disease (COVID-19) 05/24/202105/29 vaccinated. HTN, goal to be determined Hypothyroidism Mixed dyslipidemia Pernicious anemia Sleep apnea, obstructive Type 2 diabetes mellitus with hemoglobin A1c goal of less than 8.0% ([facility]) 09/29/2017 Past Surgical History: Procedure Laterality Date ARTHROPLASTY KNEE TOTAL Left 08/16/2016 ARTHROPLASTY KNEE TOTAL Right 03/02/2017 Knee replacement COLONOSCOPY THRU STOMA, W/BIOPSY 06/2006 path-normal COLONOSCOPY, DIAGNOSTIC (RECTUM) 06/26/2014 normal bx, diverticulosis, lipoma/COLONOSCOPY FLEXIBLE PROXIMAL DIAGNOSTIC performed by Gómez Ramirez MD at ENDOSCOPY [facility] COLONOSCOPY, DIAGNOSTIC (RECTUM) 05/05/2020 normal / COLONOSCOPY FLEXIBLE PROXIMAL DIAGNOSTIC performed by Kale Johns MD at ENDOSCOPY [facility] COLONOSCOPY, DIAGNOSTIC (RECTUM) 02/01/2023 poor prep/severe diverticulosis, narrowing of colon diverticular opening/COLONOSCOPY FLEXIBLE PROXIMAL DIAGNOSTIC performed by Irena Acosta DO at ENDOSCOPY [facility] DILATION AND CURETTAGE (D&C) 09/06/1999 EGD, FLEXIBLE, DIAGNOSTIC 02/15/2012 UPPER GI ENDOSCOPY DIAGNOSTIC performed by Gómez Ramirez MD at ENDOSCOPY [facility] no h-pylori or barretts changes EGD, FLEXIBLE, W/BIOPSY 07/27/2006 path-normal REMOVAL OF APPENDIX REMOVE GALLBLADDER 1996 Social History Socioeconomic History Marital status: Spouse name: Not on file Number of children: Not on file Years of education: Not on file Highest education level: Not on file Occupational History 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 1st , 4kids, 6 grand.. husb w/2 kids (not in touch). Other Topics Concern Not on file Social History Narrative Likes--travel, beaches. Social Determinants of Health Financial Resource Strain: Low Risk (08/23/2023) Financial Resource Strain Do you have any trouble paying for your medications, or do you think you might in the future? (Adult - for ages 18 years and over): No Does your family have trouble paying for medicine? (Household - for ages 0-17 years): Not on file Food Insecurity: No Food Insecurity (08/23/2023) Food Insecurity Do you need food for this week? (Adult - for ages 18 years and over): No Are you able to get enough food for your family? (Household - for ages 0-17 years): Not on file Does your family need food this week? (Household - for ages 0-17 years): Not on file Do you always have enough food for your family? (Household - for ages 0-17 years): Not on file Transportation Needs: No Transportation Needs (08/23/2023) Transportation Needs Do you have trouble getting a ride to medical visits or work? (Adult - for ages 18 years and over):Never True Does your family have a hard time getting a ride to doctors visits? (Household - for ages 0-17 years): Not on file Has lack of transportation kept you from medical appointments, meetings, work, or from getting things needed for daily living? Check all that apply. (Adult - for ages 18 years and over): Not on file Do you (or your family) have trouble finding or paying for a ride (transportation)? (Household - for ages 0-17 years): Not on file Social Connections: Socially Integrated (08/23/2023) Social Connections How often do you feel lonely or isolated from those around you? (Adult - for ages 18 years and over): Never Housing Stability: Low Risk (08/23/2023) Housing Stability Do you currently live in a snf or have no steady place to sleep at night? (Adult - for ages 18 years and over): No Do you think you are at risk of becoming homeless? (Adult - for ages 18 years and over): No Does your family worry about paying for your home or becoming homeless? (Household - for ages 0-17 years): Not on file Are you homeless or worried that you might be in the future? (Adult - for ages 18 years and over): Not on file Are you (or your family) homeless or worried that you might be in the future? (Household - for ages0-17 years): Not on file Family History Problem Relation Name Age of Onset Alzheimer's disease Mother 80 Cancer Father pancreatic Breast Cancer Sister 62 Cancer Brother throat Alzheimer's disease Brother Lorenzo 76 reitred prof Cancer Daughter cervical Current [...] at noon and 1 Capsule before bedtime. Metamucil 0.36 GM Oral Capsule (Psyllium) Take by mouth every other day . Oxybutynin Chloride ER 5 MG Oral Tablet Extended Release 24 Hour (Ditropan XL) TAKE 1 TABLET DAILY (DO NOT CUT, CRUSH OR CHEW) 90 Tablet 3 Nystatin 670400 UNIT/GM External Powder (Nystop) Apply topically to affected area 3 times a day. Apply to under breasts and belly 60 g 1 Boost Oral Liquid Take by mouth daily. [...] THING IN THE MORNING 90Tablet 3 Procrit 10091 UNIT/ML Injection Solution Inject 10,000 units subcutaneous every 4 weeks, 84-day supply. 3 mL 3 BD TB Syringe 27G X 1/2" 1 ML (Tuberculin Syringe) Use to inject Procrit monthly or as directed 3 Each 1 Ferrous Sulfate 325 (65 Fe) MG Oral Tablet (Feosol) Take 1 Tablet by mouth daily. 90 Tablet 1 OneTouch Verio In Vitro Strip (Glucose Blood) Use to test blood sugar 2 times a day. DX E11.9 200 Strip 1 OneTouch Delica Lancets 30G USE TO CHECK GLUCOSE UP TO 4 TIMES DAILY 400 Each 3 Fluticasone Propionate 50 MCG/ACT Nasal Suspension (Flonase) Administer 2 Sprays into each nostril in the morning. 16 g 1 Trulicity 0.75 MG/0.5ML Subcutaneous Solution Pen-injector (Dulaglutide) INJECT 1 PEN WEEKLY 6 mL 1 Estradiol 0.1 MG/GM Vaginal Cream (Estrace) Use 1gm nightly -rub around vaginal opening and use inside , for 2 weeks. Then use twice weekly. 42.5 g 3 FreeStyle Lancets USE TO TEST BLOOD SUGAR 2 TIMES A DAY Dx: E11.9 200 Each 3 No current facility-administered medications for this visit. Physical: BP 126/74 | Pulse 69 | Resp 16 | SpO2 97% General-No apparent Distress Head, Eyes, Ears, Nose, Throat--Normocephalic, atraumatic Neck-Supple Lymph-no lymphadenopathy Lungs-Clear to Auscultation bilaterally Cardiovascular--Regular rate & Rhythm, +s1, s2, no murmur Abdomen-soft, nontender, nondistended + bowel sounds Extremities--no edema Neuro-alert & oriented , gait pretty normal (N17.9) SOL (acute kidney injury) (HCC) (primary encounter diagnosis) Plan: BASIC METABOLIC PANEL Barber today May have been 2ary bactrim/dehydration (N39.0) Urinary tract infection without hematuria, site unspecified Plan: resolved (R79.89) Elevated LFTs Plan: HEPATIC FUNCTION PANEL (N39.0) Recurrent UTI Plan: Estradiol 0.1 MG/GM Vaginal Cream (Estrace) Counseled on use, risk, benefits, and alternatives of medications. Questions answered, patient expressed understanding. Will start to help prevent recurrent UTIs. (This note was completed using the dictation program Fluency Direct. As such, there may be misspellings, word substitutions, or other variations that should not change the essence of the clinical content of this encounter note.If there is need for further clarification, please direct questions to the provider listed above.) Milton Balderas MD H documented in this encounter Nursing Notes * Emily Leos LPN - 10/27/2023 10:38 AM EDT The patient has been properly identified by confirmation of name and date of . Chief Complaint Patient presents with Hospital Follow-Up [facility] 10/14-10/16: SOL, elevated LVT's documented in this encounter Plan of Treatment Upcoming Encounters Date Type Department Care Team (Late st Contact Info) Description 12/04/2023 9:50 AM EDT Laboratory Laboratory, [place] [address] [place] [address] [facility] [address] [place] [address] 12/05/2023 9:30 AM EDT Pharmacy Pharmacy, [address] [address] [facility], [place] [address] [place] [address] 12/28/2023 10:00 AM EDT Office Visit Family Practice [facility] [address] [place] [address] Milton Balderas MD [address] [place] [address] 01/30/2024 8:30 AM EDT Office Visit Sleep Disorders Ctr [facility] [address] [place] [phone] Lucila Flanagan CRNP [address] [place] [address] 02/01/2024 2:30 PM EDT Office Visit Nephrology, Alisia Soriano [address] [facility] [place] [address] Kamini Hyde PA-C [address] [facility] [place] [address] Pending Results Name Type Priority Associated Diagnoses Date /Time HEPATIC FUNCTION PANEL Lab Routine Elevated LFTs 10/27/2023 11:13 AM EDT BASIC METABOLIC PANEL Lab Routine SOL (acute kidney injury) (HCC) 10/27/2023 11:13 AM EDT Scheduled Orders Name Type Priority Associated Diagnoses Orde r Schedule HEPATIC FUNCTION PANEL Lab Routine Elevated LFTs Expected: 10/27/2023 (Approximate), Expires: 10/26/2024 BASIC METABOLIC PANEL Lab Routine SOL (acute kidney injury) (HCC) Expected: 10/27/2023 (Approximate), Expires: 10/26/2024 Health Maintenance Due Date Last Done Comments Diabetic Eye Exam 12/23/2021 12/23/2020, , 12/19/2019, Additional history exists COVID-19 Vaccine ( season) 2023 03/15/2021, 07/15/2020, 06/17/2020 HbA1c 10/27/2023 04/27/2023, 03/2 05/2022, 03/18/2022, Additional history exists Diabetic Foot [...] as of this encounter Visit Diagnoses Diagnosis SOL (acute kidney injury) (HCC)- Primary Acute kidney failure, unspecified Urinary tract infection without hematuria, site unspecified Elevated LFTs Other abnormal blood chemistry Recurrent UTI Urinary tract infection, site not specified documented in this encounter Additional Health Concerns Infection Onset Date Last Indicated Resolved Time ESBL 10/09/2023 10/09/2023 documented as of this encounter Care Teams Fireman Helper Relationship Specialty Start Date End Date Milton Balderas MD [address] [place] [address] PCP - General Family Medicine 10/13/20 documented as of this encounter
--- OUTSIDE RECORDS SUMMARY | 2023-12-07 14:53 | External Medical Summary | Summary of Care ---
Author Name Unknown Organization [facility] Address [address] [place] [address] Phone [phone] Care Team Providers Care Aerodynamicist Name Role Phone Milton Balderas MD Primary Care Provider + Reason for Visit * Reason Onset Date Comments Medication Refill 11/01/2023 Encounter Details Date Type Department Care Team (Late st Contact Info) Description 11/01/2023 Refill Family Practice [facility] [address] [facility] [place] [phone] Milton Balderas MD [address] [place] [address] Recurrent UTI Allergies Active Allergy Reactions Criticality Noted Date Comments Neville Inhibitors Cough 09/29/2010 Lisinopril causes cough Ciprofloxacin Rash Medium 05/03/2014 Rash with first IV dose in hospital Metformin Diarrhea 09/29/2010 documented as of this encounter (statuses as of 11/01/2023) Medications Medication Sig Dispensed Refills Start Date [...] CHEW) 90 Tablet 3 06/20/2022 Active Nystatin 182141 UNIT/GM External Powder (Nystop)Indicatio ns:Tinea corporis Apply [...] MORNING 90 Tablet 3 02/14/2023 Active Procrit 55096 UNIT/ML Injection SolutionIndicatio ns:Anemia of chronic renal [...] twice weekly. 42.5 g 3 10/27/2023 Active Estradiol 0.1 MG/GM Vaginal Cream (Estrace)Indicati ons:Recurrent UTI Use 1gm nightly -rub around vaginal opening and use inside , for 2 weeks. Then use twice weekly. 42.5 g 11/01/2023 4 Discontinu ed(Refill) documented as of this encounter (statuses as of 11/01/2023) Active Problems Problem Noted Date Diagnosed Date [...] Found on barium swallow, 01/25/2010 at [facility] [place] on CPAP 11/10/2010 Overview: Sleep study on 12/24/2009, [facility], Cpap 8, flex setting 3 AHP ICD-10 update of inactive term History of basal cell cancer 11/10/2010 Overview: BCC, left neck, 12/24/2009 ICD-10 update of inactive term HTN, goal below 130/80 09/29/2010 Dyslipidemia, goal LDL below 100 09/29/2010 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 Pernicious anemia Hypothyroidism GERD (gastroesophageal reflux disease) documented as of this encounter (statuses as of 11/01/2023) Resolved Problems Problem Noted Date Diagnosed Date [...] as of this encounter (statuses as of 11/01/2023) Immunizations Name Administration Dates Next Due COVID-19 mRNA, LNP-s, No Pre serve, 2-Dose Series ([employer] 03/15/2021,07/15/2020,06/17/2020 Pneumococcal Conjugate Vacc, 13 Valent (Prevnar) [...] encounter Miscellaneous Notes * Telephone Encounter - Maggi Beltran CPhT - 11/01/2023 2:22 PM EDT Pt's spouse stating when he called [facility] they said they did not get any script. Called pharmacy to confirm, and they did receive the script will not pay for the short supply. Pharmacy did state when he ran the script it was saying they can fill it 11/02. Thank you, Maggi Beltran CPhT Childrens Club Attendant II [facility] 11/01/2023,2:28 PM * Telephone Encounter - Ursula Lopez RPh - 11/01/2023 12:09 PM EDTNo prescriptions requested or ordered in this encounter * Telephone Encounter - Ursula Lopez RPh - 11/01/2023 12:09 PM EDT [id number] as requested to hold patient until Mail Order is received. Removed short supply order from med list once verified rx was sent/received at the pharmacy to not have duplicates on med list. Thank you, Ursula Lopez, PharmD. Clinical Pharmacist [facility] ([facility]) 11/01/2023, 12:09 PM * Telephone Encounter - Deandre Johnson PHARM Tech - 11/01/2023 11:22 AM EDT Pt's calling to request short supply for Estradiol 0.1 MG/GM Vaginal Cream (Estrace) until mail order arrives. Please review and approve if appropriate. Pending Prescriptions: Disp Refills Estradiol 0.1 MG/GM Vaginal Cream (Estrac*42.5 g 0 Sig: Use 1gm nightly -rub around vaginal opening and use inside , for 2 weeks. Then use twice weekly. Last Visit: 10/27/2023 (in office), Visit date not found (telemedicine) 12/28/2023 Thank you, Peter Johnson, Hand Shaker Childrens Club Attendant 1 [facility] ([facility]) (Formerly Telepharmacy) 11/01/2023,11:23 AM documented in this encounter Plan of Treatment Upcoming Encounters Date Type Department Care Team (Late st Contact Info) Description 12/04/2023 9:50 AM EDT Laboratory Laboratory, [place] [address] [place] [address] [place] [address] [place] [address] 12/05/2023 9:30 AM EDT Pharmacy Pharmacy, [place] [address] [place] [address] [place] [address] [place] [address] 12/28/2023 10:00 AM EDT Office Visit [facility] [address] [facility] [place] [address] Milton Balderas MD [address] [place] [address] 01/30/2024 8:30 AM EDT Office Visit Sleep Disorders Ctr [facility] [place] [address] [place] [phone] Lucila Flanagan CRNP [address] [place] [address] 02/01/2024 2:30 PM EDT Office Visit Nephrology, Alisia Soriano [facility] [place] [address] ZemaitisKamini PA-C [address] [place] [address] Health Maintenance Due Date Last Done Comments [...] as of this encounter Visit Diagnoses Diagnosis Recurrent UTI Urinary tract infection, site not specified documented in this encounter Additional Health Concerns Infection Onset Date Last Indicated Resolved Time ESBL 10/09/2023 10/09/2023 documented as of this encounter Care Teams Aerodynamicist Relationship Specialty Start Date End Date Milton Balderas MD [address] [place] [address] PCP - General Family Medicine 10/13/20 documented as of this encounter
--- OUTSIDE RECORDS SUMMARY | 2023-12-07 14:53 | External Medical Summary | Summary of Care ---
Author Name Unknown Organization [facility] Address [address] [place] [address] Phone [phone] Care Team Providers Care Commercial Trailer Truck Driver Name Role Phone Milton Balderas MD Primary Care Provider + Reason for Visit * Reason Onset Date Comments Medication Refill 11/01/2023 Encounter Details Date Type Department Care Team (Late st Contact Info) Description 11/01/2023 Refill Family Practice [facility] [address] [facility] [place] [phone] Milton Balderas MD [address] [place] [...] CHEW) 90 Tablet 3 06/20/2022 Active Nystatin 414557 UNIT/GM External Powder (Nystop)Indicatio ns:Tinea corporis Apply [...] MORNING 90 Tablet 3 02/14/2023 Active Procrit 51420 UNIT/ML Injection SolutionIndicatio ns:Anemia of chronic renal [...] mRNA, LNP-s, No Pre serve, 2-Dose Series ([employer]) 03/15/2021,07/15/2020,06/17/2020 Pneumococcal Conjugate Vacc, 13 Valent (Prevnar) [...] it 11/02. Thank you, Maggi Beltran CPhT Properties Supervisor II [facility] 11/01/2023,2:28 PM * Telephone Encounter - Ursula Lopez RPh - 11/01/2023 12:09 PM EDTNo prescriptions requested or ordered in this encounter * Telephone Encounter - Ursula Lopez RPh - 11/01/2023 12:09 PM EDT [id number] requested to hold patient until [...] found (telemedicine) 12/28/2023 Thank you, Peter Johnson, Out Patient Therapist Properties Supervisor 1 [facility] ([facility] (Formerly Telepharmacy) 11/01/2023,11:23 AM documented in this encounter Plan of Treatment Upcoming Encounters Date Type Department Care Team (Late st Contact Info) Description 12/04/2023 9:50 AM EDT Laboratory Laboratory, [place] [address] [place] [address] [place] [address] [place] [address] 12/05/2023 9:30 AM EDT Pharmacy Pharmacy, [place] [address] [place] [address] [place] [address] [place] [address] 12/28/2023 10:00 AM EDT Office Visit [facility] [address] [facility] [place] [address] Milton Balderas MD [address] [place] [address] 01/30/2024 8:30 AM EDT Office Visit [facility] Disorders [facility] [place] [address] [place] [phone] Lucila Flanagan CRNP [address] [place] [address] 02/01/2024 2:30 PM EDT Office Visit Nephrology, Alisia Soriano [address] [facility] [place] [address] ZemaitisKamini PA-C [address] [place] [address] Health Maintenance Due Date Last Done Comments [...] documented as of this encounter Care Teams Commercial Trailer Truck Driver Relationship Specialty Start Date End Date Milton Balderas MD [address] [place] [address] PCP - General Family Medicine 10/13/20 documented as of this encounter
--- OUTSIDE RECORDS SUMMARY | 2023-12-07 14:53 | External Medical Summary ---
Author Name Unknown Address Unknown Organization K0G:[facility] [place] [address] - [address] [place] [address] Laboratory Report Ordering Provider Test Date Status ANNAMARIE ROMANO 10/27/2023 11:13:27 Final Observation Date Value Abnormality Reference (Units ) Status BUN 10/27/2023 11:13:27 29 Above high normal 6-20 (mg/dL) Final Creatinine 10/27/2023 11:13:27 1.6 Above high normal 0.5-1.0 (mg/dL) Final Glomerular filtration rate/1.73 sq M.predicted [Volume Rate/Area] in Serum, Plasma or Blood by Creatinine-based formula (CKD-EPI) 10/27/2023 11:13:27 32 Below low normal >=60 (mL/min) Final eGFR is calculated based on the CKD-EPI 2020 equation Sodium 10/27/2023 11:13:27 140 135-146 (m mol/L) Final Potassium 10/27/2023 11:13:27 4.5 3.5-5.1 (m mol/L) Final Cl 10/27/2023 11:13:27 105 98-107 (mm ol/L) Final CO2 10/27/2023 11:13:27 25 22-32 (mmo l/L) Final Anion gap 10/27/2023 11:13:27 10 7-15 (mmol /L) Final Glucose 10/27/2023 11:13:27 136 Above high normal 70 -120 (mg/dL) Final Calcium 10/27/2023 11:13:27 10.3 Above high normal 8. 4-10.2 (mg/dL) Final Performing Location LABORATORY [facility] [address] - [address] [place] [address]
--- OUTSIDE RECORDS SUMMARY | 2023-12-07 14:53 | External Medical Summary | Summary of Care ---
Author Name Unknown Organization [facility] Address [address] [place] [address] Phone [phone] Care Team Providers Care School Principal Name Role Phone Milton Balderas MD Primary Care Provider + Reason for Visit * Reason Onset Date Comments Anemia Follow-Up 10/26/2023 Encounter Details Date Type Department Care Team (Late st Contact Info) Description 10/23/2023 9:30 AM EDT Pharmacy Pharmacy, [facility] [address] [place] [address] Clinic, Anemia [address] [place] [address] Anemia of chronic renal failure, stage 4 (severe) ([facility])* Allergies Active Allergy Reactions Criticality Noted Date Comments Neville Inhibitors Cough 09/29/2010 Lisinopril causes cough Ciprofloxacin Rash Medium 05/03/2014 Rash with first IV dose in hospital Metformin Diarrhea 09/29/2010 documented as of this encounter (statuses as of 10/26/2023) Medications Medication Sig Dispensed Refills Start Date [...] CHEW) 90 Tablet 3 06/20/2022 Active Nystatin 715460 UNIT/GM External Powder (Nystop)Indication s:Tinea corporis Apply [...] MORNING 90 Tablet 3 02/14/2023 Active Procrit 01924 UNIT/ML Injection SolutionIndication s:Anemia of chronic renal [...] the morning. 90 Tablet 3 09/11/2023 Active Trulicity 0.75 MG/0.5ML Subcutaneous Solution Pen-injector (Dulaglutide)Indic ations:Type 2 diabetes mellitus with stage 4 chronic kidney disease, without long-term current use of insulin (HCC) INJECT 1 PEN WEEKLY 6 mL 1 10/17/2023 Active documented as of this encounter (statuses as of 10/26/2023) Active Problems Problem Noted Date Diagnosed Date [...] as of this encounter (statuses as of 10/26/2023) Resolved Problems Problem Noted Date Diagnosed Date [...] as of this encounter (statuses as of 10/26/2023) Immunizations Name Administration Dates Next Due COVID-19 mRNA, LNP-s, No Pre serve, 2-Dose Series ([employer]) 03/15/2021,07/15/2020,06/17/2020 Pneumococcal Conjugate Vacc, 13 Valent (Prevnar) [...] this encounter Progress Notes * Capo Treviño, [facility] - 10/26/2023 9:04 AM EDT Patient Phone Numbers Called and spoke with Ekta to review labs from 10/20/23. Hgb is within target range. Iron studies adequate. B12/FA levels within target range. Patient reports she gets tired easily, but otherwise denies signs/symptoms of anemia. Plan: Resume Procrit 10,000 units SQ [id number]. Last dose: Procrit 10,000 units SQ on 06/27/23 Next dose: Procrit 10,000 units SQ on ~10/31/23 Called to refill prescription Confirmation# [id number] - EXP Scripts New or recurrent malignancy? none reported Follow-up [facility] scheduled for 12/04/23 at [place]. Capo Treviño, PharmD, [facility] Clinical Pharmacist Anemia Clinic P: [phone] F: [phone] 10/26/2023 9:59 AM Lab Results Component Value Date/Time HGB 10.7 (L) 10/20/2023 10:25 AM HGB 11.8 (L) 09/12/2023 10:30 AM HGB 12.5 07/26/2023 02:26 PM HGB 10.6 (A) 03/20/2022 12:00 AM [...] Saturation Percent 52 15 - 55 % Results for orders placed or performed in visit on 06/19/23 IRON SCREEN, INCLUDING TIBC Result Value Ref Range Iron 44 33 - 151 ug/dL Iron Binding Capacity 311 250 - 425 ug/dL Transferrin Saturation Percent 14 (L) 15 - 55 % No results found for: "TRANSFERRIN SAT %-OUTSIDE LAB" Lab Results Component Value Date/Time FERRITIN - [facility] 653 (H) 10/20/2023 10:25 AM F[facility]ITIN - [facility] 503 (H) 09/12/2023 10:30 AM FERRITIN - [facility] 438 (H) 06/19/2023 04:23 PM FERRITIN - [facility] 697.3 (H) 05/18/2020 11:02 AM [facility]IT[facility] - [facility] 784.3 (H) 04/13/2020 10:53 AM [facility]ITIN - [facility] 729.7 (H) 02/17/2020 10:24 AM No results found for: "FERRITIN-OUTSIDE LAB" documented in this encounter Plan of Treatment Upcoming Encounters Date Type Department Care Team (Late st Contact Info) Description 10/27/2023 10:40 AM EDT Office Visit [facility] [address] [place] [address] Milton Balderas MD [address] [place] [address] 12/04/2023 9:50 AM EDT Laboratory Laboratory, [place] [address] [place] [address] [facility] [address] [place] [address] 12/05/2023 9:30 AM EDT Pharmacy Pharmacy, [place] [address] [place] [address] Clinic, [place] [address] [place] [address] 12/28/2023 10:00 AM EDT Office Visit Family Practice [facility] 132 [facility] [place] [address] Milton Balderas MD 132 [facility] [place] [address] 01/30/2024 8:30 AM EDT Office Visit Sleep Disorders Ctr [facility] 132 [facility] [place] [phone] Lucila Flanagan CRNP 132 [facility] [place] [address] 02/01/2024 2:30 PM EDT Office Visit Nephrology, [facility] 200 [facility] [place] [address] ZemaitisKamini PA-C 200 [facility] [place] [address] Scheduled Orders Name Type Priority Associated Diagnoses Orde r Schedule CBC WITH WBC DIFFERENTIAL AND ANEMIA REFLEX WORKUP Lab Routine Anemia of chronic renal failure, stage 4 (severe) (HCC) Expected: 12/04/2023 (Approximate), Expires: 11/24/2024 Health Maintenance Due Date Last Done Comments Diabetic Eye Exam 12/23/2021 12/23/2020, , 12/19/2019, Additional history exists COVID-19 Vaccine ( season) 2023 03/15/2021, 07/15/2020, 06/17/2020 HbA1c 10/27/2023 04/27/2023, 0305/2022, 03/18/2022, Additional history exists Diabetic Foot Exam [...] documented as of this encounter Care Teams School Principal Relationship Specialty Start Date End Date Milton Balderas MD [address] [place] [address] PCP - General Family Medicine 10/13/20 documented as of this encounter
--- OUTSIDE RECORDS SUMMARY | 2023-12-07 14:53 | External Medical Summary ---
Author Name Unknown Address Unknown Organization K0G:[facility] [place] [address] - [address] [place] [address] Laboratory Report Ordering Provider Test Date Status ANNAMARIE ROMANO 10/27/2023 11:13:27 Final Observation Date Value Abnormality Reference (Units ) Status Albumin 10/27/2023 11:13:27 4.1 3.8-5.0 (g/dL) Final AST (Aspartate aminotransferase) 10/27/2023 11:13:27 50 Above high normal 10-35 (U/L) Final Alk Phos 10/27/2023 11:13:27 76 35-130 (U/L) Final ALT (Alanine aminotransferase) 10/27/2023 11:13:27 66 Above high normal 10-35 (U/L) Final Bilirubin, Total 10/27/2023 11:13:27 0.6 <=1.2 (mg/dL) Final Bilirubin, Direct 10/27/2023 11:13:27 <0.2 0.0-0.3 (mg/dL) Final Protein 10/27/2023 11:13:27 6.9 6.0-8.3 (g/dL) Final Performing Location [facility] [place] [address] [place] [address]
--- OUTSIDE RECORDS SUMMARY | 2023-12-07 14:53 | External Medical Summary | Summary of Care ---
Author Name Unknown Organization [facility] Address [address] [place] [address] Phone [phone] Care Team Providers Care Stock Worker And Deliverer Name Role Phone Milton Balderas MD Primary Care Provider + Reason for Visit * Reason Onset Date Comments Medication Refill 11/01/2023 Encounter Details Date Type Department Care Team (Late st Contact Info) Description 11/01/2023 Refill Family Practice [facility] [address] [facility] [place] [id number] Milton Balderas MD [address] [place] [...] CHEW) 90 Tablet 3 06/20/2022 Active Nystatin 543710 UNIT/GM External Powder (Nystop)Indicatio ns:Tinea corporis Apply [...] MORNING 90 Tablet 3 02/14/2023 Active Procrit 02924 UNIT/ML Injection SolutionIndicatio ns:Anemia of chronic renal [...] swallow, 01/25/2010 at [facility] on CPAP 11/10/2010 Overview: Sleep study on 12/24/2009, [facility], Cpap 8, flex setting 3 [...] mRNA, LNP-s, No Pre serve, 2-Dose Series ([employer]) 03/15/2021,07/15/2020,06/17/2020 Pneumococcal Conjugate Vacc, 13 Valent (Prevnar) [...] Notes * Telephone Encounter - Ursula Lopez RP - 11/01/2023 12:09 PM EDTNo prescriptions requested or ordered in this encounter * Telephone Encounter - Ursula Lopez RP - 11/01/2023 12:09 PM EDT Short supply sent to [id number] [address] [employer] as requested to hold patient until Mail Order is received. Removed short supply order from med list once verified rx was sent/received at the pharmacy to not have duplicates on med list. Thank you, Ursula Lopez, Joni. Clinical Pharmacist [facility] Clinical Pharmacy Services ([facility]) [...] found (telemedicine) 12/28/2023 Thank you, Peter Johnson, Expansion Envelope Maker Hand Band Instrument Maker 1 [facility] Services ([facility]) (Formerly Telepharmacy) 11/01/2023,11:23 AM documented in this encounter Plan of Treatment Upcoming Encounters Date Type Department Care Team (Late st Contact Info) Description 12/04/2023 9:50 AM EDT Laboratory Laboratory, [place] [address] [place] [address] [place] [address] [place] [address] 12/05/2023 9:30 AM EDT Pharmacy Pharmacy, [address] [id number] Clinic, [place] [address] [place] [address] 12/28/2023 10:00 AM EDT Office Visit Family Practice [facility] [address] [facility] [place] [address] Milton Balderas MD 132 [employer] [place] [address] 01/30/2024 8:30 AM EDT Office Visit Sleep Disorders Ctr [facility] [address] [place] [phone] Lucila Flanagan CRNP [address] [facility] [address] 02/01/2024 2:30 PM EDT Office Visit Nephrology, [address] [place] [address] Kamini Hyed PA-C 200 [facility] [place] [address] Health Maintenance Due Date Last Done Comments [...] as of this encounter Care Teams Stock Worker And Deliverer Relationship Specialty Start Date End Date Milton Balderas MD [address] [place] [address] PCP - General Family Medicine 10/13/20 documented as of this encounter
--- OUTSIDE RECORDS SUMMARY | 2023-12-07 14:53 | External Medical Summary | Summary of Care ---
Author Name Unknown Organization [facility] Address [address] [place] [address] Phone [phone] Care Team Providers Care Assistant Principal Name Role Phone Milton Balderas MD Primary Care Provider + Reason for Visit * Reason Onset Date Comments Medication Refill 11/01/2023 Encounter Details Date Type Department Care Team (Late st Contact Info) Description 11/01/2023 Refill Family Practice [facility] [address] [facility] [place] [phone] Milton Balderas MD [address] [place] [...] CHEW) 90 Tablet 3 06/20/2022 Active Nystatin 736918 UNIT/GM External Powder (Nystop)Indicatio ns:Tinea corporis Apply [...] MORNING 90 Tablet 3 02/14/2023 Active Procrit 00964 UNIT/ML Injection SolutionIndicatio ns:Anemia of chronic renal [...] barium swallow, 01/25/2010 at [facility] on CPAP 11/10/2010 Overview: Sleep study on 12/24/2009, [facility], Cpap 8, flex setting 3 [...] mRNA, LNP-s, No Pre serve, 2-Dose Series ([employer]) 03/15/2021,07/15/2020,06/17/2020 Pneumococcal Conjugate Vacc, 13 Valent (Prevnar) [...] it 11/02. Thank you, Maggi Beltran CPhT Laser Specialist II [facility] Clinical Pharmacy Services ([facility]) 11/01/2023,2:28 [...] found (telemedicine) 12/28/2023 Thank you, Peter Johnson, Cheese Maker Laser Specialist 1 [facility] Services ([facility]) (Formerly Telepharmacy) 11/01/2023,11:23 AM documented in this encounter Plan of Treatment Upcoming Encounters Date Type Department Care Team (Late st Contact Info) Description 12/04/2023 9:50 AM EDT Laboratory Laboratory, [place] [address] [place] [address] [place] [address] [place] [address] 12/05/2023 9:30 AM EDT Pharmacy Pharmacy, [place] [address] [place] [address] [place] [address] [place] [address] 12/28/2023 10:00 AM EDT Office Visit [facility] 132 [facility] [place] [address] Milton Balderas MD [address] [place] [address] 01/30/2024 8:30 AM EDT Office Visit Sleep Disorders Ctr [facility] [place] [address] [place] [phone] Lucila Flanagan CRNP [address] [place] [address] 02/01/2024 2:30 PM EDT Office Visit Nephrology, [place] 200 [facility] [place] [address] ZemaitisKamini PA-C [address] [place] [address] Health Maintenance Due Date Last Done Comments [...] documented as of this encounter Care Teams Assistant Principal Relationship Specialty Start Date End Date Milton Balderas MD [address] [place] [address] PCP - General Family Medicine 10/13/20 documented as of this encounter
--- OUTSIDE RECORDS SUMMARY | 2023-12-07 14:53 | External Medical Summary | Summary of Care ---
Author Name Unknown Organization [facility] Address [address] [place] [address] Phone [phone] Care Team Providers Care Aircraft Loadmaster Superintendent Name Role Phone Milton Balderas MD Primary Care Provider + Reason for Visit * Reason Comments Outpatient Testing Encounter Details Date Type Department Care Team (Late st Contact Info) Description 10/27/2023 11:20 AM EDT Laboratory Laboratory, [facility] [address] [place] [address] [facility] [address] [place] [address] Elevated LFTs; SOL (acute kidney injury) (HCC) Allergies Active Allergy Reactions Criticality Noted Date [...] CHEW) 90 Tablet 3 06/20/2022 Active Nystatin 974724 UNIT/GM External Powder (Nystop)Indication s:Tinea corporis Apply [...] MORNING 90 Tablet 3 02/14/2023 Active Procrit 30149 UNIT/ML Injection SolutionIndication s:Anemia of chronic renal [...] mRNA, LNP-s, No Pre serve, 2-Dose Series ([employer]) 03/15/2021,07/15/2020,06/17/2020 Pneumococcal Conjugate Vacc, 13 Valent [...] Description 12/04/2023 9:50 AM EDT Laboratory Laboratory, [place] [address] [place] [facility] [place] [address] [place], Laboratory [address] [place] [address] 12/05/2023 9:30 AM EDT Pharmacy Pharmacy, [address] [id number] Clinic, [place] [address] [place] [address] 12/28/2023 10:00 AM EDT Office Visit Family Practice [facility] 132 [facility] [place] [address] Milton Balderas MD [address] [facility] [place] [address] 01/30/2024 8:30 AM EDT Office Visit Sleep Disorders Ctr [facility] 132 [facility] [place] [phone] Lucila Flanagan CRNP 132 [facility] [place] [address] 02/01/2024 2:30 PM EDT Office Visit Nephrology, [place] [address] [place] [address] ZeKamini hodges PA-C [address] [place] [address] Pending Results Name Type Priority Associated Diagnoses Date /Time HEPATIC FUNCTION PANEL Lab Routine Elevated LFTs 10/27/2023 11:13 AM EDT BASIC METABOLIC PANEL Lab Routine SOL (acute kidney injury) (HCC) 10/27/2023 11:13 AM EDT Health Maintenance Due Date Last Done Comments Diabetic Eye Exam 12/23/2021 12/23/2020, , 12/19/2019, Additional history exists COVID-19 Vaccine ( season) 2023 03/15/2021, 07/15/2020, 06/17/2020 HbA1c 10/27/2023 04/27/2023, 07/07, 03/18/2022, Additional history exists Diabetic Foot Exam 05/25/2024 05/25/2023, 0 08/18/2021, 08/27/2020, Additional history exists Depression Screening 08/22/2024 08/23/2023 Albumin/Creatinine Ratio 08/30/2024 024, 07/26/2023, 04/28/2023, Additional history exists TSH 10/19/2024 10/20/2023, 050 11/2023, 06/19/2023, Additional history exists DTaP,Tdap,and Td [...] as of this encounter Visit Diagnoses Diagnosis Elevated LFTs Other abnormal blood chemistry SOL (acute kidney injury) (HCC) Acute kidney failure, unspecified documented in this encounter Additional Health Concerns Infection Onset Date Last Indicated Resolved Time ESBL 10/09/2023 10/09/2023 documented as of this encounter Care Teams Aircraft Loadmaster Superintendent Relationship Specialty Start Date End Date Milton Balderas MD [address] [place] [address] PCP - General Family Medicine 10/13/20 documented as of this encounter
--- OUTSIDE RECORDS SUMMARY | 2023-12-07 14:54 | External Medical Summary ---
Author Name Unknown Address Unknown Organization K01:LABORATORY [facility] - [address] [place] [address] Laboratory Report Ordering Provider Test Date Status STU LANDERS 10/20/2023 10:25:47 Final Observation Date Value Abnormality Reference (Units ) Status Folic Acid 10/20/2023 10:25:47 15.4 >4.5 (ng/ mL) Final Performing Location LAB[facility]ATORY [facility] - [address] [place] [address]
--- OUTSIDE RECORDS SUMMARY | 2023-12-07 14:54 | External Medical Summary ---
Author Name Unknown Address Unknown Organization K01:LABORATORY [facility] - [facility] [address] [place] [address] Laboratory Report Ordering Provider Test Date Status STU LANDERS 10/20/2023 10:25:47 Final Observation Date Value Abnormality Reference (Units ) Status Creatinine 10/20/2023 10:25:47 1.6 Above high normal 0.5-1.0 (mg/dL) Final Glomerular filtration rate/1.73 sq M.predicted [Volume Rate/Area] in Serum, Plasma or Blood by Creatinine-based formula (CKD-EPI) 10/20/2023 10:25:47 32 Below low normal >=60 (mL/min) Final eGFR is calculated based on the CKD-EPI 2020 equation Performing Location LABORATORY [facility] - [facility] [address] [place] [address]
--- OUTSIDE RECORDS SUMMARY | 2023-12-07 14:54 | External Medical Summary ---
Author Name Unknown Address Unknown Organization K01:LABORATORY [facility] - [address] [place] [address] Laboratory Report Ordering Provider Test Date Status STU LANDERS 10/20/2023 10:25:47 Final Observation Date Value Abnormality Reference (Units ) Status TSH 10/20/2023 10:25:47 1.77 0.27-4.20 (uIU/mL) Final Performing Location LABORATORY [facility] - [address] [place] [address]
--- OUTSIDE RECORDS SUMMARY | 2023-12-07 14:54 | External Medical Summary | Summary of Care ---
Author Name Unknown Organization [facility] Address [address] [place] [address] Phone [phone] Care Team Providers Care Manager Of Medical Name Role Phone Milton Balderas MD Primary Care Provider + Reason for Visit * Reason Comments Outpatient Testing Encounter Details Date Type Department Care Team (Late st Contact Info) Description 10/20/2023 10:30 AM EDT Laboratory Laboratory, [place] [address] [place] [address] [place], Laboratory [address] [place] [address] Anemia of chronic renal failure, stage 4 (severe) ([facility]) Allergies Active Allergy Reactions Criticality Noted Date Comments Neville Inhibitors Cough 09/29/2010 Lisinopril causes cough Ciprofloxacin Rash Medium 05/03/2014 Rash with first IV dose in hospital Metformin Diarrhea 09/29/2010 documented as of this encounter (statuses as of 10/20/2023) Medications Medication Sig Dispensed Refills Start Date [...] CHEW) 90 Tablet 3 06/20/2022 Active Nystatin 591085 UNIT/GM External Powder (Nystop)Indication s:Tinea corporis Apply [...] MORNING 90 Tablet 3 02/14/2023 Active Procrit 10374 UNIT/ML Injection SolutionIndication s:Anemia of chronic renal [...] as of this encounter (statuses as of 10/20/2023) Active Problems Problem Noted Date Diagnosed Date [...] on barium swallow, 01/25/2010 at [facility] on CPAP 11/10/2010 Overview: Sleep study on 12/24/2009, [facility], Cpap 8, flex setting 3 AHP ICD-10 update of inactive term History of basal cell cancer 11/10/2010 Overview: BCC, left neck, 12/24/2009 ICD-10 update of inactive term HTN, goal below 130/80 09/29/2010 Dyslipidemia, goal LDL below 100 09/29/2010 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 Pernicious anemia Hypothyroidism GERD (gastroesophageal reflux disease) documented as of this encounter (statuses as of 10/20/2023) Resolved Problems Problem Noted Date Diagnosed Date [...] as of this encounter (statuses as of 10/20/2023) Immunizations Name Administration Dates Next Due COVID-19 mRNA, LNP-s, No Pre serve, 2-Dose Series ([employer]) 03/15/2021,07/15/2020,06/17/2020 Pneumococcal Conjugate Vacc, 13 Valent [...] Description 10/24/2023 11:00 AM EDT Laboratory Laboratory, [place] [address] [place] [address] [place] [address] [place] [address] 10/25/2023 9:30 AM EDT Pharmacy Pharmacy, [address] [address] Clinic, [address] [address] 10/27/2023 10:40 AM EDT Office Visit [facility] [address] [place] [address] Milton Balderas MD [address] [place] [address] 12/28/2023 10:00 AM EDT Office Visit [facility] [address] [place] [address] Milton Balderas MD [address] [place] [address] 01/30/2024 8:30 AM EDT Office Visit [facility] C[facility] [place] [place] [address] [place] [phone] Lucila Flanagan CRNP [address] [place] [address] 02/01/2024 2:30 PM EDT Office Visit Nephrology, [place] 200 [facility] [place] [address] ZemaKamini wolf PA-C 200 [facility] [place] [address] Pending Results Name Type Priority Associated Diagnoses Date /Time CBC WITH WBC DIFFERENTIAL AND ANEMIA REFLEX WORKUP Lab Routine Anemia of chronic renal failure, stage 4 (severe) ([facility]) 10/20/2023 10:25 AM EDT ANEMIA CBC Lab Routine Anemia of chronic renal failure, stage 4 (severe) ([facility]) 10/20/2023 10:25 AM EDT DIFFERENTIAL, AUTOMATED Lab Routine Anemia of chronic renal failure, stage 4 (severe) ([facility]) 10/20/2023 10:25 AM EDT ANEMIA REFLEX CHEMISTRY HOLD Lab Routine Anemia of chronic renal failure, stage 4 (severe) ([facility]) 10/20/2023 10:25 AM EDT Health Maintenance Due Date Last [...] documented as of this encounter Care Teams Manager Of Medical Relationship Specialty Start Date End Date Milton Balderas MD [address] [place] [address] PCP - General Family Medicine 10/13/20 documented as of this encounter
--- OUTSIDE RECORDS SUMMARY | 2023-12-07 14:54 | External Medical Summary ---
Author Name Unknown Address Unknown Organization K01:LABORATORY [facility] [place] - [address] [facility] [address] Laboratory Report Ordering Provider Test Date Status STU LANDERS 10/20/2023 10:25:47 Final Observation Date Value Abnormality Reference (Units ) Status WBC, Total 10/20/2023 10:25:47 9.09 4.00-10.8 0 (K/uL) Final RBC 10/20/2023 10:25:47 3.58 3.85-5.15 (M/uL) Final Hemoglobin 10/20/2023 10:25:47 10.7 Below low normal 12 .0-15.3 (g/dL) Final Anemia reflex testing trigge rs on a HGB < 12.0 for Females and HGB < 13.0 for Males in accordance with the WHO Anemia Guidelines
Anemia reflex testing triggers on a HGB < 12.0 for Females and HGB < 13.0 for Males in accordance with the WHO Anemia Guidelines HCT 10/20/2023 10:25:47 34.1 Below low normal 36. 0-45.2 (%) Final MCV 10/20/2023 10:25:47 95.3 81.5-97.5 (fL) Final MCH 10/20/2023 10:25:47 29.9 27.0-34.0 (pg) Final MCHC 10/20/2023 10:25:47 31.4 32.0-36.0 (g/dL) Final RDW 10/20/2023 10:25:47 12.6 11.5-15.5 (%) Final Platelets 10/20/2023 10:25:47 273 140-400 (K /uL) Final MPV 10/20/2023 10:25:47 11.2 6.6-11.1 ( fL) Final Nucleated erythrocytes/100 leukocytes [Ratio] in Blood by Automated count 10/20/2023 10:25:47 0 <=0 (/100 WBCs) Final Performing Location LABORATORY [facility] [place] - [facility] [address] [facility] [address]
--- OUTSIDE RECORDS SUMMARY | 2023-12-07 14:54 | External Medical Summary ---
Author Name Unknown Address Unknown Organization K01:LABORATORY [place] [address] [place] [address] Laboratory Report Ordering Provider Test Date Status STU LANDERS 10/20/2023 10:25:47 Final Observation Date Value Abnormality Reference (Units ) Status Retic, % (auto) 10/20/2023 10:25:47 2.45 Above high normal 0.80-1.90 (%) Final Reticulocytes, Absolute 10/20/2023 10:25:47 88.4 31.3-100.1 (K/uL) Final Reticulocyte fraction, immature 10/20/2023 10:25:47 24.5 Above high normal 2.5-20.6 (%) Final Reticulocyte HGB 10/20/2023 10:25:47 33.7 29.7-37.4 (pg) Final Performing Location LABORATORY [facility] [place] - [facility] [address] [place] [address]
--- OUTSIDE RECORDS SUMMARY | 2023-12-07 14:54 | External Medical Summary ---
Author Name Unknown Address Unknown Organization K01:LABORATORY [facility] [place] - [address] [place] [address] Laboratory Report Ordering Provider Test Date Status STU LANDERS 10/20/2023 10:25:47 Final Observation Date Value Abnormality Reference (Units ) Status Ferritin 10/20/2023 10:25:47 653 Above high normal 13 -150 (ng/mL) Final Postmenopausal women have hi gher ferritin levels than pre-menopausal women. The above reference interval is based on pre-menopausal women. Performing Location LABORATORY [facility] [place] - [address] [place] [address]
--- OUTSIDE RECORDS SUMMARY | 2023-12-07 14:54 | External Medical Summary ---
Author Name Unknown Address Unknown Organization K01[place] [facility] [place] [address] [place] [address] Laboratory Report Ordering Provider Test Date Status STU LANDERS 10/20/2023 10:25:47 Final Observation Date Value Abnormality Reference (Units ) Status SYNC LEUKOCYTES IN BLOOD BY AUTOMATED COUNT 10/20/2023 10:25:47 9.09 4.00-10.80 (K/uL) Final Segs 10/20/2023 10:25:47 59.9 40.0-75.0 (%) Final Lymphs % 10/20/2023 10:25:47 27.3 18.0-42.0 (%) Final Monos 10/20/2023 10:25:47 6.8 1.0-11.0 (%) Final Eosinophils 10/20/2023 10:25:47 4.8 0.0-6.0 (%) Final Basos 10/20/2023 10:25:47 1.0 0.0-2.0 (%) Final Immature Granulocyte, Percent 10/20/2023 10:25:47 0.2 0.0-2.0 (%) Final Absolute Segs 10/20/2023 10:25:47 5.44 1.80-7.70 (K/uL) Final Lymphs, absolute 10/20/2023 10:25:47 2.48 1.00-4.80 (K/ul) Final Monos, Abs 10/20/2023 10:25:47 0.62 0.00-1.10 (K/uL) Final Eos, Abs 10/20/2023 10:25:47 0.44 0.00-0.70 (K/uL) Final Basos, Abs 10/20/2023 10:25:47 0.09 0.00-0.20 (K/uL) Final Immature Granulocytes, Number 10/20/2023 10:25:47 0.02 0.00-0.20 (K/uL) Final Performing Location [place] [facility] [place] [facility] [address] [facility] [address]
--- OUTSIDE RECORDS SUMMARY | 2023-12-07 14:54 | External Medical Summary ---
Author Name Unknown Address Unknown Organization K01:[place] [facility] [place] [address] [place] [address] Laboratory Report Ordering Provider Test Date Status STU LANDERS 10/20/2023 10:25:47 Final Observation Date Value Abnormality Reference (Units ) Status Vitamin B12 10/20/2023 10:25:47 >2000 Above high normal 232-1245 (pg/mL) Final Performing Location LABORATORY C - [address] [place] [address]
--- OUTSIDE RECORDS SUMMARY | 2023-12-07 14:54 | External Medical Summary | Summary of Care ---
Author Name Unknown Organization [facility] Address [address] [place] [address] Phone [phone] Care Team Providers Care World Language Teacher Name Role Phone Milton De Luna MD Primary Care Provider + Reason for Visit * Reason Comments eRx-Medication Refill Encounter Details Date Type Department Care Team (Late st Contact Info) Description 10/16/2023 Refill Family Practice [facility] [address] [place] [id number] Milton De Luna MD [address] [place] [address] Type 2 diabetes mellitus with stage 4 chronic kidney disease, without long-term current use of insulin ([facility]) Allergies Active Allergy Reactions Criticality Noted Date Comments Neville Inhibitors Cough 09/29/2010 Lisinopril causes cough Ciprofloxacin Rash Medium 05/03/2014 Rash with first IV dose in hospital Metformin Diarrhea 09/29/2010 documented as of this encounter (statuses as of 10/17/2023) Medications Medication Sig Dispensed Refills Start Date End Date Status ASPIRIN 81 MG PO TABSIndications:t akes at night Take by mouth daily. Indications: takes at night 0 7 Active BD PEN NEEDLE SHORT U/F 31G X 8 MM USE WITH INSULIN UP TO 4 TIMES DAILY FOR DIABETES 1 Box Dosing Unit 11 7 Active nitroglycerin (NITROSTAT) 0.[address] 1 Tablet under the tongue every 5 minutes as needed. Active Probiotic Product (PROBIOTIC DAILY) Capsule Take 1 Cap by mouth daily. 0 Active Biotin 1 MG Capsule Take 1 Capsule by mouth in the morning and 1 Capsule at noon and 1 Capsule before bedtime. Active Metamucil 0.36 GM Oral Capsule (Psyllium) Take by mouth every other day . Active FreeStyle Lancets USE TO TEST BLOOD SUGAR 2 TIMES A DAY Dx: E11.9 200 Each 3 3 Active Oxybutynin Chloride ER 5 MG Oral Tablet Extended Release 24 Hour (Ditropan XL)Indications:Ur inary frequency TAKE 1 TABLET DAILY (DO NOT CUT, CRUSH OR CHEW) 90 Tablet 3 3 Active Nystatin 779199 UNIT/GM External Powder (Nystop)Indicatio ns:Tinea corporis Apply topically to affected area 3 times a day. Apply to under breasts and belly 60 g 1 3 Active Additional Information Patient not taking.Reported on 08/21/2023 Boost Oral Liquid Take by mouth daily. Active Vitamin D3 25 MCG (1000 UT) Oral Tablet (Vitamin D3)Indications:Vi tamin D deficiency Take 1 Tablet by mouth in the morning. 3 Active Veltassa 8.4 GM Oral Packet (Patiromer Sorbitex Calcium)Indicatio ns:End stage renal disease (HCC) take 1 packet every other day 30 Each 3 3 Active CPAP every night at bedtime. Active Levothyroxine Sodium 75 MCG Oral Tablet (Levoxyl) TAKE 1 TABLET DAILY FIRST THING IN THE MORNING 90 Tablet 3 3 Active Procrit 62650 UNIT/ML Injection SolutionIndicatio ns:Anemia of chronic renal failure, unspecified stage Inject 10,000 units subcutaneous every 4 weeks, 84-day supply. 3 mL 3 3 Active BD TB Syringe 27G X 1/2" 1 ML (Tuberculin Syringe) Use to inject Procrit monthly or as directed 3 Each 1 3 Active Ferrous Sulfate 325 (65 Fe) MG Oral Tablet (Feosol) Take 1 Tablet by mouth daily. 90 Tablet 1 3 Active OneTouch Verio In Vitro Strip (Glucose Blood) Use to test blood sugar 2 times a day. DX E11.9 200 Strip 1 4 Active OneTouch Delica Lancets 30G USE TO CHECK GLUCOSE UP TO 4 TIMES DAILY 400 Each 3 4 Active Fluticasone Propionate 50 MCG/ACT Nasal Suspension (Flonase) Administer 2 Sprays into each nostril in the morning. 16 g 1 4 Active Losartan Potassium 50 MG Oral Tablet (Cozaar)Indicatio ns:HTN, goal below 130/80 Take 1 Tablet by mouth in the morning. 90 Tablet 3 4 Active Sulfamethoxazole- Trimethoprim 800-160 MG Oral Tablet (Bactrim DS) Take 1 Tablet by mouth in the morning and 1 Tablet before bedtime. Do all this for 7 days. Until gone. 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, without long-term current use of insulin (HCC) INJECT 1 PEN WEEKLY 6 mL 1 3 10/17/19 24 Discontinued documented as of this encounter (statuses as of 10/17/2023) Active Problems Problem Noted Date Diagnosed Date [...] Found on barium swallow, 01/25/2010 at [facility] [place] on CPAP 11/10/2010 Overview: Sleep study on 12/24/2009, [facility], Cpap 8, flex setting 3 AHP ICD-10 update of inactive term History of basal cell cancer 11/10/2010 Overview: BCC, left neck, 12/24/2009 ICD-10 update of inactive term HTN, goal below 130/80 09/29/2010 Dyslipidemia, goal LDL below 100 09/29/2010 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 Pernicious anemia Hypothyroidism GERD (gastroesophageal reflux disease) documented as of this encounter (statuses as of 10/17/2023) Resolved Problems Problem Noted Date Diagnosed Date [...] as of this encounter (statuses as of 10/17/2023) Immunizations Name Administration Dates Next Due COVID-19 mRNA, LNP-s, No Pre serve, 2-Dose Series (InfoHubble) 03/15/2021,07/15/2020,06/17/2020 Pneumococcal Conjugate Vacc, 13 Valent (Prevnar) [...] encounter Miscellaneous Notes * Telephone Encounter - Alla Tijerina RPh - 10/17/2023 10:18 AM EDTSigned Prescriptions: Disp Refills Trulicity 0.75 MG/0.5ML Subcutaneous Solut*6 mL 1 Sig: INJECT 1 PEN WEEKLYAuthorizing Provider: MILTON DE LUNA User: ALLA TIJERINA documented in this encounter Plan of Treatment Upcoming Encounters Date Type Department Care Team (Late st Contact Info) Description 10/23/2023 11:20 AM EDT Office Visit [facility] [address] [address] Milton De Luna MD [address] [address] 10/24/2023 11:00 AM EDT Laboratory Laboratory, [place] [address] [place] [id number] [facility] [address] [place] [address] 10/25/2023 9:30 AM EDT Pharmacy Pharmacy, [id number] [address] 12/28/2023 10:00 AM EDT Office Visit [facility] [address] [address] Milton De Luna MD [address] [address] 01/30/2024 8:30 AM EDT Office Visit [facility] [address] [phone] Lucila Flanagan CRNP [address] [address] 02/01/2024 2:30 PM EDT Office Visit Nephrology, [address] [place] [address] ZeKamini hodges PA-C [address] [address] Health Maintenance Due Date Last Done Comments [...] as of this encounter Visit Diagnoses Diagnosis Type 2 diabetes mellitus with stage 4 chronic kidney disease, without long-term current use of insulin (HCC) documented in this encounter Additional Health Concerns Infection Onset Date Last Indicated Resolved Time ESBL 10/09/2023 10/09/2023 documented as of this encounter Care Teams World Language Teacher Relationship Specialty Start Date End Date Milton De Luna MD [address] [id number] PCP - General Family Medicine 10/13/20 documented as of this encounter
--- OUTSIDE RECORDS SUMMARY | 2023-12-07 14:54 | External Medical Summary ---
Author Name Unknown Address Unknown Organization K01:[place] [facility] [place] [address] [place] [address] Laboratory Report Ordering Provider Test Date Status STU LANDERS 10/20/2023 10:25:47 Final Observation Date Value Abnormality Reference (Units ) Status Iron 10/20/2023 10:25:47 107 33-151 (ug /dL) Final Iron-binding capacity 10/20/2023 10:25:47 365 250-425 (ug/dL) Final Transferrin Sat % 10/20/2023 10:25:47 29 15 -55 (%) Final Performing Location LABORATORY C - [address] [place] [address]
[2023-12-07] MEDS: HEPARIN SOD 5,000 UNIT/0.5 ML VIAL SQ SCH (15:37)
[2023-12-07] MEDS: PSYLLIUM or GUAR GUM FIBER 4GM PACKET PO SCH (15:38)
[2023-12-07] MEDS: PATIROMER CALCIUM SORBITEX 8.4 GM PACK PO SCH (15:38)
[2023-12-07] MEDS: INSULIN ASPART PER UNIT CHARGE SC SCH (17:50)
[2023-12-07] MEDS: ASPIRIN 81 MG ECTAB PO SCH (20:47)
--- OUTSIDE RECORDS SUMMARY | 2023-12-08 00:31 | External Medical Summary | Summary of Care ---
Author Name Unknown Organization [facility] Address [address] [place] [address] Phone [phone] Care Team Providers Care [employer] Supervisor Name Role Phone Milton Balderas MD Primary Care Provider + Reason for Visit * Reason Comments Flank Pain OVER 1 WEEK AGO, FLA NK PAIN "KIDNEY PAIN". Encounter Details Date Type Department Care Team (Late st Contact Info) Description 12/07/2023 9:00 AM EDT Office Visit Family Practice [facility] [address] [place] [id number] July Duran CRNP [address] [place] [address] Acute confusion*; UTI symptoms; Benign hypertension with chronic kidney disease, stage IV (HCC); Memory loss Allergies Active Allergy Reactions Criticality Noted Date [...] CHEW) 90 Tablet 3 06/20/2022 Active Nystatin 948393 UNIT/GM External Powder (Nystop)Indication s:Tinea corporis Apply [...] MORNING 90 Tablet 3 02/14/2023 Active Procrit 62847 UNIT/ML Injection SolutionIndication s:Anemia of chronic renal [...] Active Problems Problem Noted Date Diagnosed Date Memory loss 12/07/2023 UTI symptoms 12/07/2023 Acute confusion 12/07/2023 Mild dementia without behavi oral disturbance, psychotic [...] mRNA, LNP-s, No Pre serve, 2-Dose Series (Xanga) 03/15/2021,07/15/2020,06/17/2020 Pneumococcal Conjugate Vacc, 13 Valent (Prevnar) [...] Sign Reading Time Taken Comments Blood Pressure 140/70 12/07/2023 8:43 AM EDT Pulse 83 12/07/2023 8:43 AM EDT Temperature - - Respiratory Rate - - Oxygen Saturation - - Inhaled Oxygen Concentration - - Weight 76.4 kg (168 lb 7 oz) 12/07/2023 8:43 AM EDT Height - - Body Mass Index 28.03 09/11/2023 9:08 AM EDT documented in this encounter Progress Notes * July Duran CRNP - 12/07/2023 9:13 AM EDT Acute UTI Family Medicine Visit CC: History of Present Illness: Ekta Francisco is a 88 year old female presenting for complaint of DYSURIA AND FREQUENCY. This has been present for 1-2 WEEKS. Her reports weakness and tired. Sometimes of confusion for a while now. -constipation -fever -flank pain -nv/d +dysuria -hematuria -bladder pain +pelvic pain +frequency +urgency -vaginal discharge -vaginal burning LMP post menopausal Last use of antibiotics-unknown Hx of EBSL uti- treated and admitted to [facility] [place] October 16. Treated with invanaz and merepenem. 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 HTN, goal to be determined Hypothyroidism Mixed dyslipidemia Pernicious anemia Sleep apnea, obstructive Type 2 diabetes mellitus with hemoglobin A1c goal of less than 8.0% ([facility]) 09/29/2017 Past Surgical History: Procedure Laterality Date ARTHROPLASTY KNEE TOTAL Left 08/16/2016 ARTHROPLASTY KNEE TOTAL Right 03/02/2017 Knee replacement COLONOSCOPY THRU STOMA, W/BIOPSY 06/2006 path-normal COLONOSCOPY, DIAGNOSTIC (RECTUM) 06/26/2014 normal bx, diverticulosis, lipoma/COLONOSCOPY FLEXIBLE PROXIMAL DIAGNOSTIC performed by Gómez Ramirez MD at ENDOSCOPY [facility] COLONOSCOPY, DIAGNOSTIC (RECTUM) 05/05/2020 normal / COLONOSCOPY FLEXIBLE PROXIMAL DIAGNOSTIC performed by Kale Johns MD at ENDOSCOPY [facility] COLONOSCOPY, DIAGNOSTIC (RECTUM) 02/01/2023 poor prep/severe diverticulosis, narrowing of colon diverticular opening/COLONOSCOPY FLEXIBLE PROXIMAL DIAGNOSTIC performed by Irena Acosta DO at ENDOSCOPY [facility] DILATION AND CURETTAGE (D&C) 09/06/1999 EGD, FLEXIBLE, DIAGNOSTIC 02/15/2012 UPPER GI ENDOSCOPY DIAGNOSTIC performed by Gómez Ramirez MD at ENDOSCOPY [facility] no h-pylori or barretts changes EGD, FLEXIBLE, W/BIOPSY 07/27/2006 path-normal REMOVAL OF APPENDIX REMOVE GALLBLADDER 1996 Current Outpatient Medications Medication Sig Dispense Refill Estradiol 0.1 MG/GM Vaginal Cream (Estrace) Use 1gm nightly -rub around vaginal opening and use inside , for 2 weeks. Then use twice weekly. 42.5 g 3 Trulicity 0.75 MG/0.5ML Subcutaneous Solution Pen-injector (Dulaglutide) INJECT 1 PEN WEEKLY 6 mL 1 Fluticasone Propionate 50 MCG/ACT Nasal Suspension (Flonase) Administer 2 Sprays into each nostril in the morning. 16 g 1 OneTouch Delica Lancets 30G USE TO CHECK GLUCOSE UP TO 4 TIMES DAILY 400 Each 3 OneTouch Verio In Vitro Strip (Glucose Blood) Use to test blood sugar 2 times a day. DX E11.9 200 Strip 1 Ferrous Sulfate 325 (65 Fe) MG Oral Tablet (Feosol) Take 1 Tablet by mouth daily. 90 Tablet 1 BD TB Syringe 27G X 1/2" 1 ML (Tuberculin Syringe) Use to inject Procrit monthly or as directed 3 Each 1 Procrit 54187 UNIT/ML Injection Solution Inject 10,000 units subcutaneous every 4 weeks, 84-day supply. 3 mL 3 Levothyroxine Sodium 75 MCG Oral Tablet (Levoxyl) TAKE 1 TABLET DAILY FIRST THING IN THE MORNING 90Tablet 3 CPAP every night at bedtime. Veltassa 8.4 GM Oral Packet (Patiromer Sorbitex Calcium) take 1 packet every other day 30 Each 3 Vitamin D3 25 MCG (1000 UT) Oral Tablet (Vitamin D3) Take 1 Tablet by mouth in the morning. Boost Oral Liquid Take by mouth daily. Nystatin 034738 UNIT/GM External Powder (Nystop) Apply topically to affected area 3 times a day. Apply to under breasts and belly 60 g 1 Oxybutynin Chloride ER 5 MG Oral Tablet Extended Release 24 Hour (Ditropan XL) TAKE 1 TABLET DAILY (DO NOT CUT, CRUSH OR CHEW) 90 Tablet 3 FreeStyle Lancets USE TO TEST BLOOD SUGAR 2 TIMES A DAY Dx: E11.9 200 Each 3 Metamucil 0.36 GM Oral Capsule (Psyllium) Take by mouth every other day . Biotin 1 MG Capsule Take 1 Capsule by mouth in the morning and 1 Capsule at noon and 1 Capsule before bedtime. Probiotic Product (PROBIOTIC DAILY) Capsule Take 1 Cap by mouth daily. BD PEN NEEDLE SHORT U/F 31G X 8 MM USE WITH INSULIN UP TO 4 TIMES DAILY FOR DIABETES 1 Box Dosing Unit 11 ASPIRIN 81 MG PO TABS Take by mouth daily. Indications: takes at night 0 nitroglycerin (NITROSTAT) 0.[address] 1 Tablet under the tongue every 5 minutes as needed. No current facility-administered medications for this visit. Review of patient's allergies indicates: Allergen Reactions Ciprofloxacin Rash Rash with first IV dose in hospital [place] Inhibitors Cough Lisinopril causes cough Metformin Diarrhea Most Recent Immunizations Administered Date(s) Administered COVID-19 mRNA, LNP-s, No Preserve, 2-Dose Series (Pfizer) 03/15/2021 Iron Sucrose 10/23/2013 Pneumococcal Conjugate Vacc, 13 Valent (Prevnar) 08/13/2014 Pneumococcal Polysaccharide PPV23 (Pneumovax) 09/29/2010 RSV Vac., Recomb, Adjuvant, PF,0.5 Ml (Arexvy) 06/05/2023 Seasonal Influenza, PF, 6 M & above, IM , (FluLaval or Fluzone) 01/06/2020 Seasonal Influenza, Quadrivalent Hd (Fluzone Hd) 01/17/2023 Seasonal Influenza, Quadrivalent Hd, 65+ Yrs 01/06/2020 Seasonal Influenza, Quadrivalent, No Preserve, IM 03/03/2016 Seasonal Influenza, Split, IIV3, With Preserve, Inj 02/10/2014 Seasonal Influenza, Trivalent, Adjuvanted, 65+ yrs 01/18/2019 TDAP (age 10 and older)(Boostrix) 10/14/2018 Varicella Zoster Vaccine (Adult) 02/05/2013 Vitamin B12 Injection 10/28/2010 Zoster Vaccine Recombinant (Shingrix) 03/12/2020, 03/12/2020 Physical Exam: BP 140/70 | Pulse 83 | Wt 76.4 kg (168 lb 7 oz) | BMI 28.03 kg/m | BSA 1.87 m Physical Exam HENT: Head: Normocephalic. Eyes: Pupils: Pupils are equal, round, and reactive to light. Cardiovascular: Rate and Rhythm: Normal rate and regular rhythm. Pulmonary: Effort: Pulmonary effort is normal. Breath sounds: Normal breath sounds. Abdominal: General: Bowel sounds are normal. Palpations: Abdomen is soft. Tenderness: There is no abdominal tenderness. Musculoskeletal: General: Normal range of motion. Cervical back: Normal range of motion. Neurological: General: No focal deficit present. Mental Status: She is alert. Psychiatric: Mood and Affect: Mood normal. Behavior: Behavior normal. Thought Content: Thought content normal. Judgment: Judgment normal. Assessment and Plan: 1. Acute confusion Patient reports increased confusion for the last 2 weeks but she has had memory changes thelast year. - CULTURE, URINE, QUANTITATIVE Recommend ED eval- patient agreeable to transport to ED Report called to [facility] [place] "Gabriela" 2. UTI symptoms X 1-2 weeks Hx of EBSL resistant Unable to take bactrim due to SOL - CULTURE, URINE, QUANTITATIVE 3. Benign hypertension with chronic kidney disease, stage IV (HCC) Stage 4 Recently hospitalized for SOL secondary to bactrim 4. Memory loss Ongoing for 1 year per her I have advised the patient to call our office incase of any worsening or new symptoms. I spent a total of 40-54 minutes (exact time 40 mins) on the date of service in preparation, delivery, and documentation of the care provided to Ekta Francisco excluding any time spent in the performance of separately billed services or time spent by another provider/QHP. King, MSN, JEWEL [facility] documented in this encounter Plan of Treatment Upcoming Encounters Date Type Department Care Team (Late st Contact Info) Description 12/28/2023 10:00 AM EDT Office Visit Family Practice [facility] [address] [place] [id number] Milton Balderas MD [address] [place] [address] 01/15/2024 9:50 AM EDT Laboratory Laboratory, [place] [address] [place] [address] [facility] [place] [address] 01/16/2024 9:30 AM EDT Pharmacy Pharmacy, [place] [address] [place] [address] Clinic, [place] [address] [place] [address] 01/30/2024 8:30 AM EDT Office Visit [facility] [address] [place] [phone] Lucila Flanagan CRNP [address] [place] [address] 02/01/2024 2:30 PM EDT Office Visit Nephrology, Alisia Soriano [address] [facility] [place] [address] Zemaitis, Kamini Paz PA-C [address] [facility] [place] [address] Scheduled Orders Name Type Priority Associated Diagnoses Orde r Schedule CULTURE, URINE, QUANTITATIVE Lab Routine Acute confusion UTI symptoms Ordered: 12/07/2023 Health Maintenance Due Date Last Done Comments [...] Associated Diagnosis Comments URINALYSIS, POINT OF CARE JONATHAN 12/07/2023 8:48 AM EDT documented in this encounter Results * (ABNORMAL) URINALYSIS, POINT OF CARE (12/07/2023 8:48 AM EDT) Color, Urine Yellow Light Yellow, Yellow 12/07/2023 8:52 AM EDT [facility] Clarity, Urine Cloudy(A) Clear 12/07/2023 8:52 AM EDT [facility] Glucose, Urine Negative Negative mg/dL 12/07/2023 8:52 AM EDT [facility] Bilirubin, Urine Negative Negative 12/07/2023 8:52 AM EDT [facility] Ketone, Urine Negative Negative mg/dL 12/07/2023 8:52 AM EDT [facility] Specific [place], Urine 1.025 1.003 - 1.030 12/07/2023 8:52 AM EDT [facility] Blood, Urine Small(A) Negative 12/07/2023 8:52 AM EDT [facility] pH, Urine 5.5 5.0, 5.5, 6.0, 6.5, 7.0, 7.5 units 12/07/2023 8:52 AM EDT [facility] Protein, Urine >=300(A) Negative mg/dL 12/07/2023 8:52 AM EDT [facility] Urobilinogen, Urine 0.2 0.2, 1.0 mg/dL 12/07/2023 8:52 AM EDT [facility] Nitrite, Urine Negative Negative 12/07/2023 8:52 AM EDT [facility] Esterase, Urine Large(A) Negative 12/07/2023 8:52 AM EDT [facility] Urine 12/07/2023 8:48 AM EDT 12/07/2023 8:52 AM EDT July [facility] POINT OF C ARE TEST DOCKED DEVICE UNSOLICITED RESULTS [facility] [address] [place] [id number] documented in this encounter Visit Diagnoses Diagnosis Acute confusion- Primary Delirium due to conditions classified elsewhere UTI symptoms Other symptoms involving urinary system Benign hypertension with chronic kidney disease, stage IV (HCC) 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
[2023-12-08] MEDS: LEVOTHYROXINE SODIUM 75 MCG TABLET PO SCH (06:07)
[2023-12-08 07:16] LABS: Hematocrit (blood only) 28.8 % (37.0-47.0); Hemoglobin 9.6 g/dl (12.0-16.0); Mean Corpuscular Hemoglobin 29.9 pg (25.0-34.0); Mean Corpuscular Hgb Conc 33.3 g/dL (32.0-36.0); Mean Corpuscular Volume 89.7 fL (80.0-100.0); Mean Platelet Volume 11.2 fL (9.4-12.4); Platelet Count 166 K/uL (130-400); RDW Coefficient of Variation 12.7 % (11.5-14.5); RDW Standard Deviation 41.9 fL (36.4-46.3); Red Blood Count 3.21 M/uL (4.20-5.40); White Blood Count 5.55 K/ul (4.8-10.8)
[2023-12-08 07:32] LABS: BUN Creatinine Ratio 17.6 (10-20); Calcium 8.7 mg/dl (8.6-10.3); Creatinine Clr Calc Pharmacy 30.4 ml/min; Est GFR (African American) 40.7 ml/min; Est GFR (Non-African American) 35.1 ml/min; Potassium 4.3 mmol/L (3.5-5.1)
[2023-12-08] MEDS: CHOLECALCIFEROL 25 MCG (1000 UNITS) TAB PO SCH (08:42)
[2023-12-08] MEDS: SACCHAROMYCES BOULARDII 250 MG CAP PO SCH (08:43)
[2023-12-08] MEDS: FERROUS SULFATE 325 MG TAB PO SCH (08:43)
[2023-12-08] MEDS ORDERED: NON-FORMULARY MEDICATION (Biotin 1 mg Capsule) PO SCH (09:00)
[2023-12-08] MEDS ORDERED: NON-FORMULARY MEDICATION (Food Supplemt, Lactose-Reduced Liquid) PO SCH (09:00)
[2023-12-08] MEDS: ERTAPENEM SODIUM 500 MG in SYRINGE 0 ML IV SCH (12:44)
--- NOTE | 2023-12-08 14:14 | Hospitalist Progress Note ---
Date of Service December 08, 2023 Assessment & Plan (1) Acute metabolic encephalopathy: (2) Complicated UTI (urinary tract infection): (3) History of ESBL E. coli infection: (4) Hypothyroidism: (5) DM type 2 (diabetes mellitus, type 2): (6) HTN (hypertension): (7) CKD (chronic kidney disease): (8) DORIS on CPAP: Plan This is an 88-year-old female with PMH of type 2 diabetes, hypothyroidism, dyslipidemia, CKD stage IV, hypertension, PSVT, DORIS on CPAP, anemia of chronic disease and other medical problems listed below who presents with confusion and urinary symptoms over the past few days. Was recently admitted at the beginning of October for ESBL UTI and was admitted to [facility], treated with Invanz. Sent in by PCP this morning due to confusion and abnormal UA. Acute metabolic encephalopathy Complicated UTI H/o ESBL UTI 3 days of symptoms, abnormal UA as an outpatient Recent admission for ESBL UTI Treat with Ertapenem based on previous culture Contact precautions will Follow repeat culture CKD stage IV Cr 1.4 today (baseline creatinine ~ 1.4-1.6) Renally dose antibiotic Daily BMP Anemia of chronic disease Hgb improved to 11.2 Receiving Procrit Q monthly, continue daily iron HTN Previously on losartan, has not been resumed monitor fo now. DM II A1c 6.4 on 12/04/23 Hold home agents SSI while in-patient BSG AC HS Hypothyroidism Continue levothyroxine DVT Ppx: SQ heparin Code status: FULL PCP: Sherrie Dispo: admitted to med/surg Please note the above document was generated using voice recognition software. It may contain grammatical, syntax or spelling errors. Any formal questions or concerns about the content, text or information contained within the body of this dictation should be directly addressed to the provider for clarification Admission and Anticipated Discharge Date Admission Date: December 07, 2023 Subjective Patient seen and examined at bedside. Comfortable; not in distress. Denies fever, chills, chest pain, shortness of breath, abdominal pain or urinary symptoms. No significant overnight events Review of Systems Review of Systems: All systems reviewed & are unremarkable except as noted in Subjective Physical Exam Physical Exam: Constitutional: WD/WN, vitals as above, NAD, sitting up in bed, pleasant, conversing easily Respiratory: normal respiratory effort, lungs clear to auscultation, no wheeze, rales, rhonchi. Normal insp/exp effort, no accessory muscle use Cardiovascular: RRR, no murmur, no edema Vessels: no JVD or carotid bruit Chest: normal inspection of chest Abdomen: normal bowel sounds, soft, nontender, no hepatosplenomegaly Musculoskeletal: no cyanosis or clubbing, extremities motor strength 5/5 Skin: no rashes, warm and dry normal turgor Neurologic: PERRL, EOMI, accommodation nl, no face palsy, no dysarthria CN's II- XI intact bilaterally and moves all extremities Psychiatric: A+Ox3, euthymic affect Results & Data Results & Data Vital Signs (Past 12 Hours) Vital Signs Temp Pulse Resp BP Pulse Ox O2 Del Method 12/08/23 07:55 36.5 C 62 18 160/79 H 95 Room Air 12/08/23 07:45 CPAP
--- NOTE | 2023-12-08 19:20 | Electrocardiogram Report ---
Test Reason : Blood Pressure : / mmHG Vent. Rate : 062 BPM Atrial Rate : 062 BPM P-R Int : 140 ms QRS Dur : 084 ms QT Int : 416 ms P-R-T Axes : 029 016 161 degrees QTc Int : 422 ms Sinus rhythm with Premature supraventricular complexes Minimal voltage criteria for LVH, may be normal variant ( R in aVL ) Abnormal ECG When compared with ECG of 14-OCT-2023 20:58, No significant change Confirmed by Manoj Farah ([id number]) on 12/08/2023 7:20:19 PM Referred By: Milton Balderas Confirmed By:Manoj Farah
[2023-12-09 07:10] LABS: Hematocrit (blood only) 32.5 % (37.0-47.0); Hemoglobin 10.7 g/dl (12.0-16.0); Mean Corpuscular Hemoglobin 29.7 pg (25.0-34.0); Mean Corpuscular Hgb Conc 32.9 g/dL (32.0-36.0); Mean Corpuscular Volume 90.3 fL (80.0-100.0); Mean Platelet Volume 10.9 fL (9.4-12.4); Platelet Count 196 K/uL (130-400); RDW Coefficient of Variation 12.6 % (11.5-14.5); RDW Standard Deviation 41.1 fL (36.4-46.3); White Blood Count 7.32 K/ul (4.8-10.8)
[2023-12-09 07:24] LABS: BUN Creatinine Ratio 17.5 (10-20); Calcium 9.2 mg/dl (8.6-10.3); Creatinine Clr Calc Pharmacy 28.9 ml/min; Est GFR (African American) 38.3 ml/min; Est GFR (Non-African American) 33.1 ml/min; Potassium 4.3 mmol/L (3.5-5.1)
--- NOTE | 2023-12-09 09:29 | Hospitalist Progress Note ---
Date of Service December 09, 2023 Assessment & Plan (1) Acute metabolic encephalopathy: (2) Complicated UTI (urinary tract infection): (3) History of ESBL E. coli infection: (4) Hypothyroidism: (5) DM type 2 (diabetes mellitus, type 2): (6) HTN (hypertension): (7) CKD (chronic kidney disease): (8) DORIS on CPAP: Plan This is an 88-year-old female with PMH of type 2 diabetes, hypothyroidism, dyslipidemia, CKD stage IV, hypertension, PSVT, DORIS on CPAP, anemia of chronic disease and other medical problems listed below who presents with confusion and urinary symptoms over the past few days. Was recently admitted at the beginning of October for ESBL UTI and was admitted to [facility], treated with Invanz. Sent in by PCP this morning due to confusion and abnormal UA. Acute metabolic encephalopathy Complicated UTI H/o ESBL UTI 3 days of symptoms, abnormal UA as an outpatient Recent admission for ESBL UTI Patient was treated with ertapenem during the hospitalization for 3 days She denies any symptoms of fever, chills, urinary urgency or frequency. Recommended hydration to prevent further UTI in the future. CKD stage IV Cr 1.4 today (baseline creatinine ~ 1.4-1.6) Renally dose antibiotic Daily BMP Anemia of chronic disease Hgb improved to 11.2 Receiving Procrit Q monthly, continue daily iron HTN Previously on losartan, has not been resumed monitor fo now. DM II A1c 6.4 on 12/04/23 Hold home agents SSI while in-patient BSG AC HS Hypothyroidism Continue levothyroxine DVT Ppx: SQ heparin Code status: FULL PCP: Sherrie Dispo: admitted to med/surg Please note the above document was generated using voice recognition software. It may contain grammatical, syntax or spelling errors. Any formal questions or concerns about the content, text or information contained within the body of this dictation should be directly addressed to the provider for clarification Admission and Anticipated Discharge Date Admission Date: December 07, 2023 Subjective Patient seen and examined at bedside This is comfortable; not in any distress She wants to go home today. Vital signs are stable Review of Systems Review of Systems: All systems reviewed & are unremarkable except as noted in Subjective Physical Exam Physical Exam: Constitutional: WD/WN, vitals as above, NAD, sitting up in bed, pleasant, conversing easily Respiratory: normal respiratory effort, lungs clear to auscultation, no wheeze, rales, rhonchi. Normal insp/exp effort, no accessory muscle use Cardiovascular: RRR, no murmur, no edema Vessels: no JVD or carotid bruit Chest: normal inspection of chest Abdomen: normal bowel sounds, soft, nontender, no hepatosplenomegaly Musculoskeletal: no cyanosis or clubbing, extremities motor strength 5/5 Skin: no rashes, warm and dry normal turgor Neurologic: PERRL, EOMI, accommodation nl, no face palsy, no dysarthria CN's II- XI intact bilaterally and moves all extremities Psychiatric: A+Ox3, euthymic affect Results & Data Results & Data Vital Signs (Past 12 Hours) Vital Signs Temp Pulse Resp BP Pulse Ox O2 Del Method 12/09/23 07:38 36.6 C 70 18 147/74 H 95 Room Air 12/08/23 22:05 60 174/74 H
--- NOTE | 2023-12-09 09:31 | Discharge Summary ---
Date of Service December 09, 2023 Admission HPI Per Admitting Provider This is an 88-year-old female with PMH of type 2 diabetes, hypothyroidism, dyslipidemia, CKD stage IV, hypertension, PSVT, DORIS on CPAP, anemia of chronic disease and other medical problems listed below who presents with confusion and urinary symptoms over the past few days. Per , patient has been notably more forgetful and less steady on her feet over the past few days. Denies any fever, chills, nausea, vomiting or abdominal pain. No CP or SOB. Endorses some dysuria, more frequent urination and pressure in her bladder over the past few days. Was recently admitted at the beginning of October for ESBL UTI and was admitted to [facility], treated with Invanz. Does take oxybutynin but has difficulty answering whether or not she has urge incontinence. Admission Exam Per Admitting Provider General: Lying comfortably in bed, not in distress, on room air HEENT: EOMI, NEERU, MMM Chest: Clear breath sounds bilaterally, no wheezes or crackles CVS: Regular rate and rhythm, normal heart sounds, no murmur Abdomen: Soft, non tender, not distended, normal bowel sounds Neuro: Awake, alert, oriented, conversing well, non focal Extremities: No cyanosis, clubbing or edema Principal Diagnosis ESBL E.coli UTI Discharge Exam Constitutional: WD/WN, vitals as above, NAD, sitting up in bed, pleasant, conversing easily Respiratory: normal respiratory effort, lungs clear to auscultation, no wheeze, rales, rhonchi. Normal insp/exp effort, no accessory muscle use Cardiovascular: RRR, no murmur, no edema Vessels: no JVD or carotid bruit Chest: normal inspection of chest Abdomen: normal bowel sounds, soft, nontender, no hepatosplenomegaly Musculoskeletal: no cyanosis or clubbing, extremities motor strength 5/5 Skin: no rashes, warm and dry normal turgor Neurologic: PERRL, EOMI, accommodation nl, no face palsy, no dysarthria CN's II-XI intact bilaterally and moves all extremities Psychiatric: A+Ox3, euthymic affect Discharge Data Allergies Allergy/AdvReac Type Severity Reaction Status Date / Time ciprofloxacin Allergy Intermediate RASH Verified 10/14/23 21:16 BENEDICT Inhibitors AdvReac Intermediate COUGH Verified 10/14/23 21:16 metformin AdvReac Intermediate GI SYMPTOMS Verified 10/14/23 21:16 Consultations 12/07/23 11:54 ED Decision to Admit Stat Ordered Studies 12/07/23 10:22 CT head/brain wo con Stat Hospital Course (1) Acute metabolic encephalopathy: (2) Complicated UTI (urinary tract infection): (3) History of ESBL E. coli infection: (4) Hypothyroidism: (5) DM type 2 (diabetes mellitus, type 2): (6) HTN (hypertension): (7) CKD (chronic kidney disease): (8) DORIS on CPAP: Plan This is an 88-year-old female with PMH of type 2 diabetes, hypothyroidism, dyslipidemia, CKD stage IV, hypertension, PSVT, DORSI on CPAP, anemia of chronic disease and other medical problems listed below who presents with confusion and urinary symptoms over the past few days. Was recently admitted at the beginning of October for ESBL UTI and was admitted to [facility], treated with Invanz. Sent in by PCP due to confusion and abnormal UA. Acute metabolic encephalopathy- Resolved Complicated UTI H/o ESBL UTI 3 days of symptoms, abnormal UA as an outpatient Recent admission for ESBL UTI Patient was treated with ertapenem during the hospitalization for 3 days She denies any symptoms of fever, chills, urinary urgency or frequency. Recommended hydration to prevent further UTI in the future. Her past urine culture has also grown ESBL; I discussed with the patient to monitor symptoms for UTI. She was discharged home with instruction to follow-up with her primary care doctor Please note the above document was generated using voice recognition software. It may contain grammatical, syntax or spelling errors. Any formal questions or concerns about the content, text or information contained within the body of this dictation should be directly addressed to the provider for clarification Total Time Total Time Spent Total Time Spent (In Minutes): 45 Total Time Includes: Examination of the Patient, Discharge Planning, Medication Reconciliation, Communication With Other Providers and Other Discharge Plan Discharge Items Patient Disposition: Home - Self-Care Reason For Visit: CONFUSION, UTI (H/O ESBL) Discharge Diagnosis: Acute UTI Activity: Resume your previous activity Non-emergency contact: Primary Care Provider Call non-emergency contact if: you have any medication questions and your symptoms worsen Follow-up/Referrals: Milton Balderas MD [Primary Care Provider] - Diet: Regular Addtl Attending Provider Instructions: You were treated in the hospital with IV antibiotics for the UTI. Please make sure you avoid your bladder completely. Please continue to maintain hydration. Please follow-up with your primary care doctor Pending Studies at Discharge: No Stand-Alone Forms: My [facility], Smoking Cessation Medications and DC Order Prescriptions: Continued levothyroxine 75 mcg tablet 75 mcg PO QAM aspirin 81 mg Tablet,Delayed Release (Dr/Ec) 81 mg PO HS oxybutynin chloride 5 mg tablet extended release 24hr 5 mg PO HS Procrit 10,000 unit/mL solution 10,000 unit subcut MONTHLY PRN (Reason: WHEN NEEDED) Trulicity 0.75 mg/0.5 mL pen injector 0.75 mg SUBCUT WK Rx Instructions: ADMINISTER EVERY MONDAY Veltassa 8.4 gram powder in packet 8.4 g PO Q OTHER DAY nitroglycerin [Nitrostat] 0.6 mg Tablet, Sublingual 0.6 mg sublingual DIRECTED PRN (Reason: Chest Pain) biotin 1 mg Capsule 1 mg PO DAILY ferrous sulfate [FeroSul] 325 mg (65 mg iron) tablet 325 mg PO DAILY nystatin [Nyamyc] 100,000 unit/gram powder 1 applic TOPICAL TID PRN (Reason: irritation) fluticasone propionate 50 mcg/actuation spray,suspension 2 spray INTRANASAL DAILY PRN (Reason: Nasal Congestion) food supplemt, lactose-reduced Liquid 1 ea PO DAILY cholecalciferol (vitamin D3) [Vitamin D3] 25 mcg (1,000 unit) Tablet 25 mcg PO DAILY psyllium husk [Metamucil] 0.4 gram Capsule 0.4 g PO Q OTHER DAY Saccharomyces boulardii [Florastor] 250 mg capsule 250 mg PO DAILY Rx Instructions: swallow whole Discharge Orders: Discharge Order (Routine); Ordered 12/09/23 Ordered By: Edil Angel Admission Data Admit Date/Time: 12/07/23 12:28 Attending Provider: Edil Angel Admit Provider: Jose Alfredo Jackson Primary Care Provider: Milton Balderas Other Providers: Jose Alfredo Jackson Other Interventions: Discharge Summary Assessment (RN) Last Done: 12/09/23 12:13
== END 2023-12-09 13:00 | disposition home or self-care (01) | DRG 689 ==
LOC: ED 09:42 → SUATTDRO 12:28 → 3W 12:28

== ENCOUNTER 2024-01-14 18:49 | Inpatient (IN) ==
--- OUTSIDE RECORDS SUMMARY | 2024-01-14 18:57 | External Medical Summary | Summary of Care ---
Author Name Unknown Organization [facility] Address [address] [place] [address] Phone [phone] Care Team Providers Care Litigation Legal Assistant Name Role Phone Milton Balderas MD Primary Care Provider + Reason for Visit * Reason Onset Date Comments Test Results 09/19/2023 Encounter Details Date Type Department Care Team (Late st Contact Info) Description 09/19/2023 Telephone Pharmacy, [facility] [address] [place] [address] Clinic, Anemia [address] [place] [address] Test Results Allergies Active Allergy Reactions Criticality Noted Date Comments Neville Inhibitors Cough 09/29/2010 Lisinopril causes cough Ciprofloxacin Rash Medium 05/03/2014 Rash with first IV dose in hospital Metformin Diarrhea 09/29/2010 documented as of this encounter (statuses as of 12/19/2023) Medications Medication Sig Dispensed Refills Start Date [...] CHEW) 90 Tablet 3 06/20/2022 Active Nystatin 447556 UNIT/GM External Powder (Nystop)Indicatio ns:Tinea corporis Apply [...] MORNING 90 Tablet 3 02/14/2023 Active Procrit 26340 UNIT/ML Injection SolutionIndicatio ns:Anemia of chronic renal [...] as of this encounter (statuses as of 12/19/2023) Active Problems Problem Noted Date Diagnosed Date [...] Overview: Found on barium swallow, 01/25/2010 at [facility] DORIS on CPAP 11/10/2010 Overview: Sleep study on 12/24/2009, [facility], Cpap 8, flex setting 3 AHP ICD-10 update of inactive term History of basal cell cancer 11/10/2010 Overview: BCC, left neck, 12/24/2009 ICD-10 update of inactive term HTN, goal below 130/80 09/29/2010 Dyslipidemia, goal LDL below 100 09/29/2010 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 Pernicious anemia Hypothyroidism GERD (gastroesophageal reflux disease) documented as of this encounter (statuses as of 12/19/2023) Resolved Problems Problem Noted Date Diagnosed Date [...] to be determined 0 09/29/2010 Mixed dyslipidemia 05/25/201 1 documented as of this encounter (statuses as of 12/19/2023) Immunizations Name Administration Dates Next Due COVID-19 [...] Notes * Telephone Encounter - Jaime Mcdonald CPhT - 09/19/2023 9:39 AM EDT Caller's name: [facility] call back number(OFFICE NUMBER FOR ): [phone] Reason for call: Pt calling for test results from anemia clinic Thank you, Jaime Mcdonald CPhT [employer] [facility] 09/19/2023,9:39 AM documented in this encounter Plan of Treatment Upcoming Encounters Date Type Department Care Team (Late st Contact Info) Description 12/21/2023 10:40 AM EDT Office Visit [facility] [address] [place] [address] Milton Balderas MD [address] [facility] [place] [address] 12/28/2023 10:00 AM EDT Office Visit [facility] [address] [place] [address] Milton Balderas MD 132 [facility] [place] [address] 01/15/2024 9:50 AM EDT Laboratory Laboratory, [place] [address] [place] [phone] [place] [address] [place] [address] 01/16/2024 9:30 AM EDT Pharmacy Pharmacy, [place] [address] [place] [address] Clinic, Anemia [address] [place] [address] 01/30/2024 8:30 AM EDT Office Visit [facility] [address] [facility] [place] [phone] Lucila Flanagan CRNP [address] [facility] [place] [address] 02/01/2024 2:30 PM EDT Office Visit Nephrology, [facility] [address] [place], [place] [address] Kamini Hyde PA-C [address] [place] [address] Health Maintenance Due Date Last Done Comments Diabetic Eye Exam 12/23/2021 12/23/2020, , 12/19/2019, Additional history exists Adult Wellness Visit 12/25/2021 12/25/2020 COVID-19 Vaccine ( season) 2023 03/15/2021, 07/15/2020, [...] Last Indicated Resolved Time ESBL 10/09/2023 10/09/2023 12/08/2023 12:1 8 AM EDT ESBL 12/07/2023 12/07/2023 documented as of this encounter Care Teams Litigation Legal Assistant Relationship Specialty Start Date End Date Milton Balderas MD [address] [address] PCP - General Family Medicine 10/13/20 documented as of this encounter
--- OUTSIDE RECORDS SUMMARY | 2024-01-14 18:57 | External Medical Summary | Summary of Care ---
Author Name Unknown Organization [facility] Address [address] [place] [address] Phone [phone] Care Team Providers Care Film Editor Name Role Phone Milton Balderas MD Primary Care Provider + Reason for Visit * Reason Comments Return Visit 6 month follow up-se jacinto eye doctor this afternoon for routine eye exam Encounter Details Date Type Department Care Team (Late st Contact Info) Description 12/28/2023 10:00 AM EDT Office Visit Family Practice [facility] [address] [place] [address] Milton Balderas MD [address] [place] [address] Type 2 diabetes mellitus with stage 3b chronic kidney disease, without long-term current use of insulin ([facility])*; HTN, goal below 130/80; Anemia of chronic renal failure, stage 4 (severe) ([facility]) Allergies Active Allergy Reactions Criticality Noted Date Comments Neville Inhibitors Cough 09/29/2010 Lisinopril causes cough Ciprofloxacin Rash Medium 05/03/2014 Rash with first IV dose in hospital Metformin Diarrhea 09/29/2010 documented as of this encounter (statuses as of 01/01/2024) Medications Medication Sig Dispensed Refills Start Date [...] CHEW) 90 Tablet 3 06/20/2022 Active Nystatin 405185 UNIT/GM External Powder (Nystop)Indicatio ns:Tinea corporis Apply [...] MORNING 90 Tablet 3 02/14/2023 Active Procrit 97142 UNIT/ML Injection SolutionIndicatio ns:Anemia of chronic renal failure, unspecified stage Inject 10,000 units subcutaneous every 4 weeks, 84-day supply. 3 mL 3 02/23/2023 Active BD TB Syringe 27G X 1/2" 1 ML (Tuberculin Syringe) Use to inject Procrit monthly or as directed 3 Each 1 02/23/2023 Active OneTouch Verio In Vitro Strip (Glucose [...] twice weekly. 42.5 g 3 10/27/2023 Active Ferrous Sulfate 325 (65 Fe) MG Oral Tablet (Feosol) Take 1 Tablet by mouth daily. 90 Tablet 1 12/28/2023 Active Ferrous Sulfate 325 (65 Fe) MG Oral Tablet (Feosol) Take 1 Tablet by mouth daily. 90 Tablet 1 04/27/2023 4 Discontinu ed(Refill) documented as of this encounter (statuses as of 01/01/2024) Active Problems Problem Noted Date Diagnosed Date [...] Overview: Found on barium swallow, 01/25/2010 at [facility] DORIS on CPAP 11/10/2010 Overview: Sleep study on 12/24/2009, [facility], Cpap 8, flex setting 3 AHP ICD-10 update of inactive term History of basal cell cancer 11/10/2010 Overview: BCC, left neck, 12/24/2009 ICD-10 update of inactive term HTN, goal below 130/80 09/29/2010 Dyslipidemia, goal LDL below 100 09/29/2010 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 Pernicious anemia Hypothyroidism GERD (gastroesophageal reflux disease) documented as of this encounter (statuses as of 01/01/2024) Resolved Problems Problem Noted Date Diagnosed Date [...] as of this encounter (statuses as of 01/01/2024) Immunizations Name Administration Dates Next Due COVID-19 mRNA, LNP-s, No Pre serve, 2-Dose Series (Agorafy) 03/15/2021,07/15/2020,06/17/2020 Pneumococcal Conjugate Vacc, 13 Valent (Prevnar) [...] Sign Reading Time Taken Comments Blood Pressure 138/90 12/28/2023 10:09 AM EDT Pulse 65 12/28/2023 10:09 AM EDT Temperature - - Respiratory Rate 18 12/28/2023 10:09 AM EDT Oxygen Saturation 97% 12/28/2023 10:09 AM EDT Inhaled Oxygen Concentration - - Weight - - Height - - Body Mass Index - - documented in this encounter Progress Notes * Milton Balderas MD - 12/28/2023 11:15 AM EDT SUBJECTIVE: Ekta Francisco is a 88 year old female here for Return Visit (6 month follow up-seeing eye doctorthis afternoon for routine eye exam) . Here for f/u with . Doing well overall. Dementia stable No complaints. Likes going out for lunch No polyuria/dipsia. No fever, chills, chest pain, shortness of breath, headache, nausea, vomit, diarrhea, constipation or vision changes Physical: BP 138/90 | Pulse 65 | Resp 18 | SpO2 97% General-No apparent Distress Head, Eyes, Ears, Nose, Throat--Normocephalic, atraumatic Neck-Supple Lymph-no lymphadenopathy Lungs-Clear to Auscultation bilaterally Cardiovascular--Regular rate & Rhythm, +s1, s2, no murmur Abdomen-soft, nontender, nondistended + bowel sounds Extremities--no edema Neuro-alert & oriented (E11.22, N18.32) Type 2 diabetes mellitus with stage 3b chronic kidney disease, without long-term current use of insulin (HCC) (primary encounter diagnosis) Plan: labs review/ordered Cont mgmt (I10) HTN, goal below 130/80 Plan: cont mgt--will give some upper leeway given age, risk factors (N18.4, D63.1) Anemia of chronic renal failure, stage 4 (severe) (HCC) Plan: cont mgmt Iron has been high w/high ferritin, so decrease iron pills to 1 a day from BID, may consider stopping. Received Procrit last year. (This note was completed using the dictation program Fluency Direct. As such, there may be misspellings, word substitutions, or other variations that should not change the essence of the clinical content of this encounter note.If there is need for further clarification, please direct questions to the provider listed above.) Milton Balderas MD documented in this encounter Nursing Notes * Emily Leos LPN - 12/28/2023 10:09 AM EDT The patient has been properly identified by confirmation of name and date of . Chief Complaint Patient presents with Return Visit 6 month follow up documented in this encounter Plan of Treatment Upcoming Encounters Date Type Department Care Team (Late st Contact Info) Description 01/15/2024 9:50 AM EDT Laboratory Laboratory, [place] [address] [place] [address] [facility] [address] [place] [address] 01/16/2024 9:30 AM EDT Pharmacy Pharmacy, [place] [address] [place] [address] Clinic, Anemia [address] [place] [address] 01/30/2024 8:30 AM EDT Office Visit [facility] Disorders Ctr [facility] [address] [place] [phone] Lucila Flanagan CRNP [address] [place] [address] 02/01/2024 2:30 PM EDT Office Visit Nephrology, [facility] Sor[facility] [address] [facility] [place] [address] [place], Kamini Paz PA-C [address] [place] [address] 07/03/2024 3:20 PM EST Office Visit Family Practice [facility] [address] [place] [address] Milton Balderas MD [address] [place] [address] Health Maintenance Due Date Last Done Comments [...] Diagnosis Type 2 diabetes mellitus with stage 3b chronic kidney disease, without long-term current use of insulin (HCC)- Primary HTN, goal below 130/80 Unspecified essential hypertension Anemia of chronic renal failure, stage 4 (severe) (HCC) documented in this encounter Additional Health Concerns Infection Onset Date Last Indicated Resolved Time ESBL 12/07/2023 12/07/2023 documented as of this encounter Care Teams Film Editor Relationship Specialty Start Date End Date Milton Balderas MD [address] [place] [address] PCP - General Family Medicine 10/13/20 documented as of this encounter
--- OUTSIDE RECORDS SUMMARY | 2024-01-14 18:57 | External Medical Summary | Summary of Care ---
Author Name Unknown Organization [facility] Address [address] [place] [address] Phone [phone] Care Team Providers Care Heavy Duty Diesel Mechanic Name Role Phone Milton Balderas MD Primary Care Provider + Reason for Visit * Reason Comments Flank Pain OVER 1 WEEK AGO, FLA NK PAIN "KIDNEY PAIN". Encounter Details Date Type Department Care Team (Late st Contact Info) Description 12/07/2023 9:00 AM EDT Office Visit Family Practice [facility] [address] [place] [address] July Duran CRNP [address] [place] [address] Acute confusion*; UTI symptoms; Benign hypertension with chronic kidney disease, stage IV (HCC); Memory loss Allergies Active Allergy Reactions Criticality Noted Date Comments Neville Inhibitors Cough 09/29/2010 Lisinopril causes cough Ciprofloxacin Rash Medium 05/03/2014 Rash with first IV dose in hospital Metformin Diarrhea 09/29/2010 documented as of this encounter (statuses as of 12/10/2023) Medications Medication Sig Dispensed Refills Start Date [...] CHEW) 90 Tablet 3 06/20/2022 Active Nystatin 775383 UNIT/GM External Powder (Nystop)Indication s:Tinea corporis Apply [...] MORNING 90 Tablet 3 02/14/2023 Active Procrit 61194 UNIT/ML Injection SolutionIndication s:Anemia of chronic renal [...] as of this encounter (statuses as of 12/10/2023) Active Problems Problem Noted Date Diagnosed Date [...] Found on barium swallow, 01/25/2010 at [facility] [place] on CPAP 11/10/2010 Overview: Sleep study on 12/24/2009, [facility], Cpap 8, flex setting 3 AHP ICD-10 update of inactive term History of basal cell cancer 11/10/2010 Overview: BCC, left neck, 12/24/2009 ICD-10 update of inactive term HTN, goal below 130/80 09/29/2010 Dyslipidemia, goal LDL below 100 09/29/2010 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 Pernicious anemia Hypothyroidism GERD (gastroesophageal reflux disease) documented as of this encounter (statuses as of 12/10/2023) Resolved Problems Problem Noted Date Diagnosed Date [...] as of this encounter (statuses as of 12/10/2023) Immunizations Name Administration Dates Next Due COVID-19 mRNA, LNP-s, No Pre serve, 2-Dose Series ([employer]) 03/15/2021,07/15/2020,06/17/2020 Pneumococcal Conjugate Vacc, 13 Valent (Prevnar) [...] of EBSL uti- treated and admitted to [facility] October 16. Treated with invanaz and merepenem. 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 Tobacco Use Smoking status: Former Current [...] Stability Do you currently live in a senior care or have no steady place to sleep [...] hemoglobin A1c goal of less than 8.0% ([facility]) 09/29/2017 Past Surgical History: Procedure Laterality Date ARTHROPLASTY KNEE TOTAL Left 08/16/2016 ARTHROPLASTY KNEE TOTAL Right 03/02/2017 Knee replacement COLONOSCOPY THRU STOMA, W/BIOPSY 06/2006 path-normal COLONOSCOPY, DIAGNOSTIC (RECTUM) 06/26/2014 normal bx, diverticulosis, lipoma/COLONOSCOPY FLEXIBLE PROXIMAL DIAGNOSTIC performed by Gómez Ramirez MD at ENDOSCOPY [facility] COLONOSCOPY, DIAGNOSTIC (RECTUM) 05/05/2020 normal / COLONOSCOPY FLEXIBLE PROXIMAL DIAGNOSTIC performed by Kale Johns MD at [facility]COPY [facility] COLONOSCOPY, DIAGNOSTIC (RECTUM) 02/01/2023 poor prep/severe diverticulosis, narrowing of colon diverticular opening/COLONOSCOPY FLEXIBLE PROXIMAL DIAGNOSTIC performed by Irena Acosta DO at ENDOSCOPY [facility] DILATION AND CURETTAGE (D&C) 09/06/1999 EGD, FLEXIBLE, DIAGNOSTIC 02/15/2012 UPPER GI ENDOSCOPY DIAGNOSTIC performed by Gómez Ramirez MD at ENDOSCOPY [facility] no h-pylori or barretts changes EGD, [...] or as directed 3 Each 1 Procrit 50652 UNIT/ML Injection Solution Inject 10,000 units subcutaneous [...] Oral Liquid Take by mouth daily. Nystatin 144337 UNIT/GM External Powder (Nystop) Apply topically to [...] to transport to ED Report called to [facility] "Gabriela" 2. UTI symptoms X 1-2 weeks [...] spent by another provider/QHP. King, MSN, JEWEL [facility] documented in this encounter Plan of Treatment Upcoming Encounters Date Type Department Care Team (Late st Contact Info) Description 12/28/2023 10:00 AM EDT Office Visit Family Practice [facility] [address] [place] [address] Milton Balderas MD [address] [place] [address] 01/15/2024 9:50 AM EDT Laboratory Laboratory, [place] [address] [place] [address] [facility] [place] [address] 01/16/2024 9:30 AM EDT Pharmacy Pharmacy, [place] [address] [place] [address] Clinic, [place] [address] [place] [address] 01/30/2024 8:30 AM EDT Office Visit Sleep Disorders Ctr [facility] [address] [place] [phone] Lucila Flanagan CRNP [address] [place] [address] 02/01/2024 2:30 PM EDT Office Visit Nephrology, [place] [address] [place] [address] ZemaitisKamini PA-C 200 [facility] [place] [address] Health Maintenance Due Date Last Done Comments [...] Procedure Name Priority Date/Time Associated Diagnosis Comments CULTURE, URINE, QUANTITATIVE Routine 12/07/2023 9:26 AM EDT Acute confusion UTI symptoms URINALYSIS, POINT OF CARE JONATHAN 12/07/2023 8:48 AM EDT documented in this encounter Results * (ABNORMAL) CULTURE, URINE, QUANTITATIVE (12/07/2023 9:26 AM EDT) Culture Growth >100,000 colonies/mL Escherichia coli ESBL producing organism, This patient may require isolation.(A) MICROBROTH DILUTIONS 12/10/2023 12:05 PM EDT [facility] Comment:This gram negative b acilli displays in vitro resistance to multiple antibiotics. This patient may require isolation. Carbapenem use is preferred. Contact infectious disease service for further recommendations. Urine Urine specimen obtained by clean catch procedure / Unknown Non-blood Collection / Unknown 12/07/2023 9:26 AM EDT 12/07/2023 10:19 AM EDT Narrative [facility] - 12/10/2023 12:05 PM EDT <10,000 colonies/ml mixed normal roberth Organism Antibiotic Method Susceptibility Escherichia coli ESBL producing organism, This patient may require isolation. Ampicillin MICROBROTH DILUTIONS >=32: Resistant Escherichia coli ESBL producing organism, This patient may require isolation. Ampicillin/Sulbactam MICROBROTH DILUTIONS 16: Intermediate Escherichia coli ESBL producing organism, This patient may require isolation. Cefazolin MICROBROTH DILUTIONS >=64: Resistant Escherichia coli ESBL producing organism, This patient may require isolation. Cefepime MICROBROTH DILUTIONS Susceptible - Dose Dependent Comment:This is an a ppended report. These results have been appended to a previously preliminary verified report. Escherichia coli ESBL producing organism, This patient may require isolation. Ceftriaxone MICROBROTH DILUTIONS 32: Resistant Escherichia coli ESBL producing organism, This patient may require isolation. Ciprofloxacin MICROBROTH DILUTIONS >=4: Resistant Comment:Due to olman us side effects, the FDA has advised against using Ciprofloxacin to treat uncomplicated UTIs and respiratory tract infections unless there are no alternative treatment options. Escherichia coli ESBL producing organism, This patient may require isolation. Gentamicin MICROBROTH DILUTIONS >=16: Resistant Escherichia coli ESBL producing organism, This patient may require isolation. Levofloxacin MICROBROTH DILUTIONS >=8: Resistant Comment:Due to olman us side effects, the FDA has advised against using Levofloxacin to treat uncomplicated UTIs and respiratory tract infections unless there are no alternative treatment options. Escherichia coli ESBL producing organism, This patient may require isolation. Meropenem MICROBROTH DILUTIONS <=0.25: Susceptible Escherichia coli ESBL producing organism, This patient may require isolation. Nitrofurantoin MICROBROTH DILUTIONS 64: Intermediate Escherichia coli ESBL producing organism, This patient may require isolation. Piperacillin Tazobactam MICROBROTH DILUTIONS <=4: Susceptible Escherichia coli ESBL producing organism, This patient may require isolation. Tobramycin MICROBROTH DILUTIONS 8: Resistant Escherichia coli ESBL producing organism, This patient may require isolation. Trimeth/Sulfamethoxazol e MICROBROTH DILUTIONS <=20: Susceptible Escherichia coli ESBL producing organism, This patient may require isolation. Ertapenem PEDRO PABLO COHEN 29: Susceptible July [facility] - GE NERAL ORDERABLES [facility] [address] [place] [address] * (ABNORMAL) URINALYSIS, POINT OF CARE (12/07/2023 [...] AM EDT LAB[facility]AT[facility]10 Specific [place], Urine 1.025 1.003 - 1.030 12/07/2023 8:52 [...] Large(A) Negative 12/07/2023 8:52 AM EDT LAB[facility]AT[facility] 57[facility]10 Urine 12/07/2023 8:48 AM EDT 12/07/2023 8:52 AM EDT July [facility] POINT OF C ARE TEST DOCKED DEVICE UNSOLICITED RESULTS LAB[facility]10 [address] [place] [address] documented in this encounter Visit Diagnoses Diagnosis [...] 10/09/2023 10/09/2023 12/08/2023 12:1 8 AM EDT documented as of this encounter Care Teams Heavy Duty Diesel Mechanic Relationship Specialty Start Date End Date Milton Balderas MD [address] [place] [address] PCP - General Family Medicine 10/13/20 documented as of this encounter
--- OUTSIDE RECORDS SUMMARY | 2024-01-14 18:57 | External Medical Summary | Summary of Care ---
Author Name Unknown Organization [facility] Address [address] [place] [address] Phone [phone] Care Team Providers Care County Demonstrator Name Role Phone Milton Balderas MD Primary Care Provider + Reason for Visit * Reason Onset Date Comments Test Results 12/06/2023 Encounter Details Date Type Department Care Team (Late st Contact Info) Description 12/06/2023 Telephone Centralized Clinical Pharm[facility] Services, Kwaku Neal [address] [place] [address] [place] [address] Clinic, [facility] [address] [place] [address] Test Results Allergies Active Allergy Reactions Criticality Noted Date Comments Neville Inhibitors Cough 09/29/2010 Lisinopril causes cough Ciprofloxacin Rash Medium 05/03/2014 Rash with first IV dose in hospital Metformin Diarrhea 09/29/2010 documented as of this encounter (statuses as of 12/12/2023) Medications Medication Sig Dispensed Refills Start Date [...] CHEW) 90 Tablet 3 06/20/2022 Active Nystatin 920305 UNIT/GM External Powder (Nystop)Indication s:Tinea corporis Apply [...] MORNING 90 Tablet 3 02/14/2023 Active Procrit 44044 UNIT/ML Injection SolutionIndication s:Anemia of chronic renal [...] as of this encounter (statuses as of 12/12/2023) Active Problems Problem Noted Date Diagnosed Date [...] as of this encounter (statuses as of 12/12/2023) Resolved Problems Problem Noted Date Diagnosed Date [...] as of this encounter (statuses as of 12/12/2023) Immunizations Name Administration Dates Next Due COVID-19 mRNA, LNP-s, No Pre serve, 2-Dose Series ([employer]) 03/15/2021,07/15/2020,06/17/2020 Pneumococcal Conjugate Vacc, 13 Valent [...] Telephone Encounter - Mari Reeder LPN - 12/12/2023 9:46 AM EDT Noted. * Telephone Encounter - July Duran CRNP - 12/10/2023 3:50 PM EDT Lab shows she has resistant bacteria infection. She is currently admitted to [facility] and on the right medication per their notes. /King, JULIO, JEEWL [facility] * Telephone Encounter - Frannie aBjwa pipe fitter maintenance - 12/06/2023 11:30 AM EDT Caller's name: Margarito Preferred call back number(OFFICE NUMBER FOR ): [phone] Reason for call: Patients calling for 's lab results taken on 12/03. Would like a call back from [facility] when available. Frannie Bajwa Sheet Metal Layout Mechanic [facility] [address] [place] [address] Dr. [address] [phone] 12/06/2023,11:30 AM documented in this encounter Plan of Treatment Upcoming Encounters Date Type Department Care Team (Late st Contact Info) Description 12/21/2023 10:40 AM EDT Office Visit Family Practice [facility] [address] [address] Milton Balderas MD [address] [place] [address] 12/28/2023 10:00 AM EDT Office Visit Family Practice [facility] 132 [facility] [place] [address] Milton Balderas MD 132 [facility] [place] [address] 01/15/2024 9:50 AM EDT Laboratory Laboratory, [place] [address] [place] [phone] [facility] [address] [place], [place] [address] 01/16/2024 9:30 AM EDT Pharmacy Pharmacy, [id number] [address] 01/30/2024 8:30 AM EDT Office Visit Sleep Disorders Ctr [facility] 132 [facility] [place] [phone] Lucila Flanagan CRNP 132 [place] [address] 02/01/2024 2:30 PM EDT Office Visit Nephrology, [place] [address] [place] [address] ZemaitisKamini PA-C [address] [place] [address] Health Maintenance Due Date Last Done Comments Diabetic Eye Exam 12/23/2021 12/23/2020, , 12/19/2019, Additional history exists Adult Wellness Visit 12/25/2021 12/25/2020 COVID-19 Vaccine ( season) 2023 03/15/2021, 07/15/2020, 06/17/2020 Influenza Vaccine (FLU shot) (#1) 2024 01/17/2023, 03/24/2022, 01/26/2021, Additional history exists Diabetic Foot Exam 05/25/2024 05/25/2023, 0 08/18/2021, 08/27/2020, Additional history exists HbA1c 06/05/2024 12/04/2023, 1205/2022, 07/26/2022, Additional history exists Depression Screening 08/22/2024 [...] documented as of this encounter Care Teams County Demonstrator Relationship Specialty Start Date End Date Milton Balderas MD [address] [place] [address] PCP - General Family Medicine 10/13/20 documented as of this encounter
--- OUTSIDE RECORDS SUMMARY | 2024-01-14 18:57 | External Medical Summary | Summary of Care ---
Author Name Unknown Organization [facility] Address [address] [place] [address] Phone [phone] Care Team Providers Care Civil Engineering Project Manager Name Role Phone Milton Balderas MD Primary Care Provider + Reason for Visit * Reason Comments Hospital Follow-Up [facility] 12/06-12/08: UTI Encounter Details Date Type Department Care Team (Late st Contact Info) Description 12/21/2023 10:40 AM EDT Office Visit Family Practice [facility] [address] [place] [address] Milton Balderas MD [address] [place] [address] Recurrent UTI* Allergies Active Allergy Reactions Criticality Noted Date Comments Neville Inhibitors Cough 09/29/2010 Lisinopril causes cough Ciprofloxacin Rash Medium 05/03/2014 Rash with first IV dose in hospital Metformin Diarrhea 09/29/2010 documented as of this encounter (statuses as of 12/21/2023) Medications Medication Sig Dispensed Refills Start Date [...] CHEW) 90 Tablet 3 06/20/2022 Active Nystatin 399207 UNIT/GM External Powder (Nystop)Indication s:Tinea corporis Apply [...] MORNING 90 Tablet 3 02/14/2023 Active Procrit 68532 UNIT/ML Injection SolutionIndication s:Anemia of chronic renal [...] as of this encounter (statuses as of 12/21/2023) Active Problems Problem Noted Date Diagnosed Date [...] Overview: Found on barium swallow, 01/25/2010 at [facility] on CPAP 11/10/2010 Overview: Sleep study on 12/24/2009, [facility], Cpap 8, flex setting 3 AHP ICD-10 update of inactive term History of basal cell cancer 11/10/2010 Overview: BCC, left neck, 12/24/2009 ICD-10 update of inactive term HTN, goal below 130/80 09/29/2010 Dyslipidemia, goal LDL below 100 09/29/2010 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 Pernicious anemia Hypothyroidism GERD (gastroesophageal reflux disease) documented as of this encounter (statuses as of 12/21/2023) Resolved Problems Problem Noted Date Diagnosed Date [...] as of this encounter (statuses as of 12/21/2023) Immunizations Name Administration Dates Next Due COVID-19 mRNA, LNP-s, No Pre serve, 2-Dose Series ([employer]) 03/15/2021,07/15/2020,06/17/2020 Pneumococcal Conjugate Vacc, 13 Valent (Prevnar) [...] Sign Reading Time Taken Comments Blood Pressure 142/76 12/21/2023 10:53 AM EDT Pulse 73 12/21/2023 10:53 AM EDT Temperature 37 C (98.6 F) 12/21/2023 10:53 AM EDT Respiratory Rate 16 12/21/2023 10:53 AM EDT Oxygen Saturation 96% 12/21/2023 10:53 AM EDT Inhaled Oxygen Concentration - - Weight - - Height - - Body Mass Index - - documented in this encounter Progress Notes * Milton Balderas MD - 12/21/2023 11:29 AM EDT SUBJECTIVE: Ekta Francisco is a 88 year old female here for Hospital Follow-Up ([facility] 12/06- 12/08: UTI) . Here for hosp f/u with . Patient developed confusion and increased urinary frequency over the few days before her admission.Has a history of urine infections in the past. On estradiol cream. Recently had a admission in Octoberwith ESBL UTI treated with Invanz. Takes oxybutynin. In the hospital she was treated with ertapenem for 3 days. Urinary and mental symptoms resolved. No symptoms since home. No polyuria/dipsia. No freq No fever, chills, chest pain, shortness of [...] goal of less than 8.0% ([facility]) 09/29/2017 Past Surgical History: Procedure Laterality Date ARTHROPLASTY KNEE TOTAL Left 08/16/2016 ARTHROPLASTY KNEE TOTAL Right 03/02/2017 Knee replacement COLONOSCOPY THRU STOMA, W/BIOPSY 06/2006 path-normal COLONOSCOPY, DIAGNOSTIC (RECTUM) 06/26/2014 normal bx, diverticulosis, lipoma/COLONOSCOPY FLEXIBLE PROXIMAL DIAGNOSTIC performed by Gómez Ramirez MD at ENDOSCOPY [facility] COLONOSCOPY, DIAGNOSTIC (RECTUM) 05/05/2020 normal / COLONOSCOPY FLEXIBLE PROXIMAL DIAGNOSTIC performed by Kale Johns MD at ENDOSCOPY [facility] COLONOSCOPY, DIAGNOSTIC (RECTUM) 02/01/2023 poor prep/severe diverticulosis, narrowing of colon diverticular opening/COLONOSCOPY FLEXIBLE PROXIMAL DIAGNOSTIC performed by Irena Acosta DO at ENDOSCOPY [facility] DILATION AND CURETTAGE (D&C) 09/06/1999 EGD, FLEXIBLE, DIAGNOSTIC 02/15/2012 UPPER GI ENDOSCOPY DIAGNOSTIC performed by Gómez Ramirez MD at ENDOSCOPY [facility] no h-pylori or barretts changes EGD, FLEXIBLE, W/BIOPSY 07/27/2006 path-normal REMOVAL OF APPENDIX REMOVE GALLBLADDER 1996 Social History Socioeconomic History Marital status: Spouse name: Not on file Number of children: Not on file Years of education: Not on file Highest education level: Not on file Occupational History 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 FreeStyle Lancets USE TO TEST BLOOD SUGAR 2 TIMES A DAY Dx: E11.9 200 Each 3 Oxybutynin Chloride ER 5 MG Oral Tablet Extended Release 24 Hour (Ditropan XL) TAKE 1 TABLET DAILY (DO NOT CUT, CRUSH OR CHEW) 90 Tablet 3 Nystatin 152472 UNIT/GM External Powder (Nystop) Apply topically to [...] THING IN THE MORNING 90Tablet 3 Procrit 67385 UNIT/ML Injection Solution Inject 10,000 units subcutaneous [...] Then use twice weekly. 42.5 g 3 No current facility-administered medications for this visit. Physical: BP 142/76 | Pulse 73 | Temp 37 C (98.6 F) (Tympanic) | Resp 16 | SpO2 96% General-No apparent Distress Head, Eyes, Ears, Nose, Throat--Normocephalic, atraumatic Neck-Supple Lymph-no lymphadenopathy Lungs-Clear to Auscultation bilaterally Cardiovascular--Regular rate & Rhythm, +s1, s2, no murmur Abdomen-soft, nontender, nondistended + bowel sounds Extremities--no edema Neuro-alert & oriented (N39.0) Recurrent UTI (primary encounter diagnosis) Plan: currently asympt Cont estrace Push fluids. F/u prn I spent a total of 30-39 minutes (exact time 33 mins) on the date of service in preparation, delivery, and documentation of the care provided to Ekta Francisco excluding any time spent in the performance of separately billed services or time spent by another provider/QHP. (This note was completed using the dictation program Fluency Direct. As such, there may be misspellings, word substitutions, or other variations that should not change the essence of the clinical content of this encounter note.If there is need for further clarification, please direct questions to the provider listed above.) Milton Balderas MD documented in this encounter Nursing Notes * Emily Leos LPN - 12/21/2023 10:52 AM EDT The patient has been properly identified by confirmation of name and date of . Chief Complaint Patient presents with Hospital Follow-Up [facility] 12/06-12/08: UTI documented in this encounter Plan of Treatment Upcoming Encounters Date Type Department Care Team (Late st Contact Info) Description 12/28/2023 10:00 AM EDT Office Visit [facility] [address] [address] Milton Balderas MD [address] [place] [address] 01/15/2024 9:50 AM EDT Laboratory Laboratory, [place] [address] [place] [address] [facility] [address] [place] [address] 01/16/2024 9:30 AM EDT Pharmacy Pharmacy, [place] [address] [place] [address] Clinic, [place] [address] [place] [address] 01/30/2024 8:30 AM EDT Office Visit Sleep Disorders Ctr [facility] [place] [address] [facility] [place] [phone] Lucila Flanagan CRNP 132 [facility] [place] [address] 02/01/2024 2:30 PM EDT Office Visit Nephrology, [place] [address] [place] [address] ZemaitisKamini PA-C [address] [facility] [place] [address] Health Maintenance Due Date Last Done Comments [...] of this encounter Visit Diagnoses Diagnosis Recurrent UTI- Primary Urinary tract infection, site not specified documented in this encounter Additional Health Concerns Infection Onset Date Last Indicated Resolved Time ESBL 12/07/2023 12/07/2023 documented as of this encounter Care Teams Civil Engineering Project Manager Relationship Specialty Start Date End Date Milotn Balderas MD [address] [place] [address] PCP - General Family Medicine 10/13/20 documented as of this encounter
--- OUTSIDE RECORDS SUMMARY | 2024-01-14 18:57 | External Medical Summary | Summary of Care ---
Author Name Unknown Organization [facility] Address [address] [place] [address] Phone [phone] Care Team Providers Care Secondary [employer] Principal Name Role Phone Milton Balderas MD Primary Care Provider + Reason for Visit * Reason Onset Date Comments Hospital Follow-Up 12/12/2023 Hospital fu q uestions Encounter Details Date Type Department Care Team (Late st Contact Info) Description 12/12/2023 Telephone Family Practice [facility] [address] [place] [address] Milton Balderas MD [address] [place] [id number] Hospital Follow-Up (Hospital fu questions) Allergies Active Allergy Reactions Criticality Noted Date Comments Neville Inhibitors Cough 09/29/2010 Lisinopril causes cough Ciprofloxacin Rash Medium 05/03/2014 Rash with first IV dose in hospital Metformin Diarrhea 09/29/2010 documented as of this encounter (statuses as of 12/13/2023) Medications Medication Sig Dispensed Refills Start Date [...] CHEW) 90 Tablet 3 06/20/2022 Active Nystatin 416838 UNIT/GM External Powder (Nystop)Indication s:Tinea corporis Apply [...] MORNING 90 Tablet 3 02/14/2023 Active Procrit 21481 UNIT/ML Injection SolutionIndication s:Anemia of chronic renal [...] as of this encounter (statuses as of 12/13/2023) Active Problems Problem Noted Date Diagnosed Date [...] Overview: Found on barium swallow, 01/25/2010 at [facility] on CPAP 11/10/2010 Overview: Sleep study on 12/24/2009, [facility], Cpap 8, flex setting 3 AHP ICD-10 update of inactive term History of basal cell cancer 11/10/2010 Overview: BCC, left neck, 12/24/2009 ICD-10 update of inactive term HTN, goal below 130/80 09/29/2010 Dyslipidemia, goal LDL below 100 09/29/2010 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 Pernicious anemia Hypothyroidism GERD (gastroesophageal reflux disease) documented as of this encounter (statuses as of 12/13/2023) Resolved Problems Problem Noted Date Diagnosed Date [...] as of this encounter (statuses as of 12/13/2023) Immunizations Name Administration Dates Next Due COVID-19 mRNA, LNP-s, No Pre serve, 2-Dose Series (ROKT) 03/15/2021,07/15/2020,06/17/2020 Pneumococcal Conjugate Vacc, 13 Valent (Prevnar) [...] on file Are you (or your family) nerrique eless or worried that you might be [...] encounter Miscellaneous Notes * Telephone Encounter - Celena Block OSA - 12/13/2023 10:37 AM EDT Unfortunately it looks like 12/20 is the earliest for ER follow ups or for returns * Telephone Encounter - Mari Reeder LPN - 12/13/2023 10:09 AM EDT Check to see if someone else has a sooner Hosp f/u slot. * Telephone Encounter - Rosy Howell OSA - 12/12/2023 9:01 AM EDT Patient spouse scheduling hospital follow up discharge date 802 scheduled first available [phone]. Ptspouse has questions and requesting call back documented in this encounter Plan of Treatment Upcoming Encounters Date Type Department Care Team (Late st Contact Info) Description 12/21/2023 10:40 AM EDT Office Visit [facility] [address] [address] Milton Balderas MD [address] [address] 12/28/2023 10:00 AM EDT Office Visit [facility] [address] [address] Milton Balderas MD [address] [address] 01/15/2024 9:50 AM EDT Laboratory Laboratory, [place] [address] [place] [address] [place], Laboratory [address] [place] [address] 01/16/2024 9:30 AM EDT Pharmacy Pharmacy, [address] [address] Clinic, [place] [address] [place] [address] 01/30/2024 8:30 AM EDT Office Visit [facility] [place] [address] [place] [phone] Lucila Flanagan CRNP [address] [place] [address] 02/01/2024 2:30 PM EDT Office Visit Nephrology, [facility] Soriano [address] [place] [address] ZemaitisKamini PA-C [address] [place] [address] Health Maintenance Due Date Last Done Comments Diabetic Eye Exam 12/23/2021 12/23/2020, , 12/19/2019, Additional history exists Adult Wellness Visit 12/25/2021 12/25/2020 COVID-19 Vaccine ( season) 2023 03/15/2021, 07/15/2020, 06/17/2020 Influenza Vaccine (FLU shot) (#1) 2024 01/17/2023, 03/24/2022, 01/26/2021, Additional history exists Diabetic Foot Exam 05/25/2024 05/25/2023, 0 08/18/2021, 08/27/2020, Additional history exists HbA1c 06/05/2024 12/04/2023, 122 05/2022, 07/26/2022, Additional history exists Depression Screening [...] documented as of this encounter Care Teams Secondary School Principal Relationship Specialty Start Date End Date Milton Balderas MD [address] [address] PCP - General Family Medicine 10/13/20 documented as of this encounter
--- OUTSIDE RECORDS SUMMARY | 2024-01-14 18:57 | External Medical Summary | Summary of Care ---
Author Name Unknown Organization [facility] Address [address] [place] [address] Phone [phone] Care Team Providers Care Manager Credit Collections Name Role Phone Milton Balderas MD Primary Care Provider + Reason for Visit * Reason Comments Return Visit 6 month follow up-se [facility] eye doctor this afternoon for routine eye exam Encounter Details Date Type Department Care Team (Late st Contact Info) Description 12/28/2023 10:00 AM EDT Office Visit Family Practice [facility] [address] [place] [address] Milton Balderas MD [address] [place] [address] Type 2 diabetes mellitus with stage 3b chronic kidney disease, without long-term current use of insulin ([facility])*; HTN, goal below 130/80; Anemia of chronic renal failure, stage 4 (severe) ([facility]) Allergies Active Allergy Reactions Criticality Noted Date Comments Neville Inhibitors Cough 09/29/2010 Lisinopril causes cough Ciprofloxacin Rash Medium 05/03/2014 Rash with first IV dose in hospital Metformin Diarrhea 09/29/2010 documented as of this encounter (statuses as of 01/02/2024) Medications Medication Sig Dispensed Refills Start Date [...] CHEW) 90 Tablet 3 06/20/2022 Active Nystatin 634066 UNIT/GM External Powder (Nystop)Indicatio ns:Tinea corporis Apply [...] MORNING 90 Tablet 3 02/14/2023 Active Procrit 72995 UNIT/ML Injection SolutionIndicatio ns:Anemia of chronic renal [...] as of this encounter (statuses as of 01/02/2024) Active Problems Problem Noted Date Diagnosed Date [...] as of this encounter (statuses as of 01/02/2024) Resolved Problems Problem Noted Date Diagnosed Date [...] as of this encounter (statuses as of 01/02/2024) Immunizations Name Administration Dates Next Due COVID-19 mRNA, LNP-s, No Pre serve, 2-Dose Series (CureVac) 03/15/2021,07/15/2020,06/17/2020 Pneumococcal Conjugate Vacc, 13 Valent (Prevnar) [...] Description 01/15/2024 9:50 AM EDT Laboratory Laboratory, [place] [address] [place] [address] [facility] [address] [place] [address] 01/16/2024 9:30 AM EDT Pharmacy Pharmacy, [place] [address] [place] [address] Clinic, [place] [address] [place] [address] 01/30/2024 8:30 AM EDT Office Visit Sleep Disorders Ctr [facility] [address] [place] [phone] Lucila Flanagan CRNP [address] [place] [place] [address] 02/01/2024 2:30 PM EDT Office Visit Nephrology, [facility] Sor[facility] [address] [facility] [place] [address] Zemaitis, Kamini Paz PA-C [address] [facility] [place] [address] 07/03/2024 3:20 PM EST Office Visit Family Practice [facility] [address] [place] [address] Milton Balderas MD [address] [place] [address] Health Maintenance Due Date Last Done Comments Adult Wellness Visit 12/25/2021 12/25/2020 COVID-19 Vaccine [...] 12/03/2024 12/04/2023, 11/06, 10/20/2023, Additional history exists Diabetic Eye Exam 12/27/2024 12/28/2023 (Do ne elsewhere), 12/23/2020, 12/19/2019, Additional history exists DTap/Tdap Vaccines (3 - Td or Tdap) 10/14/2028 [...] as of this encounter Care Teams Manager Credit Collections Relationship Specialty Start Date End Date Milton Balderas MD [address] [address] PCP - General Family Medicine 10/13/20 documented as of this encounter
--- OUTSIDE RECORDS SUMMARY | 2024-01-14 18:57 | External Medical Summary | Summary of Care ---
Author Name Unknown Organization [facility] Address [address] [place] [address] Phone [phone] Care Team Providers Care Skin Grader Name Role Phone Milton Balderas MD Primary Care Provider + Reason for Visit * Reason Comments Return Visit 6 month follow up-se [facility] eye doctor this afternoon for routine eye exam Encounter Details Date Type Department Care Team (Late st Contact Info) Description 12/28/2023 10:00 AM EDT Office Visit Family Practice [facility] [address] [place] [address] Milton Balderas MD [address] [place] [address] Type 2 diabetes mellitus with stage 3b chronic kidney disease, without long-term current use of insulin ([facility])*; HTN, goal below 130/80; Anemia of chronic renal failure, stage 4 (severe) ([facility]) Allergies Active Allergy Reactions Criticality Noted Date Comments Neville Inhibitors Cough 09/29/2010 Lisinopril causes cough Ciprofloxacin Rash Medium 05/03/2014 Rash with first IV dose in hospital Metformin Diarrhea 09/29/2010 documented as of this encounter (statuses as of 12/28/2023) Medications Medication Sig Dispensed Refills Start Date [...] CHEW) 90 Tablet 3 06/20/2022 Active Nystatin 701133 UNIT/GM External Powder (Nystop)Indicatio ns:Tinea corporis Apply [...] MORNING 90 Tablet 3 02/14/2023 Active Procrit 32380 UNIT/ML Injection SolutionIndicatio ns:Anemia of chronic renal [...] as of this encounter (statuses as of 12/28/2023) Active Problems Problem Noted Date Diagnosed Date [...] as of this encounter (statuses as of 12/28/2023) Resolved Problems Problem Noted Date Diagnosed Date [...] as of this encounter (statuses as of 12/28/2023) Immunizations Name Administration Dates Next Due COVID-19 mRNA, LNP-s, No Pre serve, 2-Dose Series (PowerCard) 03/15/2021,07/15/2020,06/17/2020 Pneumococcal Conjugate Vacc, 13 Valent (Prevnar) [...] Description 01/15/2024 9:50 AM EDT Laboratory Laboratory, [place] [address] [place] [address] [facility] [address] [place] [address] 01/16/2024 9:30 AM EDT Pharmacy Pharmacy, [place] [address] [place] [address] Clinic, [place] [address] [place] [address] 01/30/2024 8:30 AM EDT Office Visit Sleep Disorders Ctr [facility] [address] [place] [phone] Lucila Flanagan CRNP [address] [place] [address] 02/01/2024 2:30 PM EDT Office Visit Nephrology, [facility] Sor[facility] [address] [facility] [place] [address] Zemaitis, Kamini Paz PA-C [address] [place] [address] 07/03/2024 3:20 PM EST Office Visit Family Practice [facility] [address] [place] [address] Milton Balderas MD [address] [place] [address] Health Maintenance Due Date Last Done Comments [...] documented as of this encounter Care Teams Skin Grader Relationship Specialty Start Date End Date Milton Balderas MD [address] [address] PCP - General Family Medicine 10/13/20 documented as of this encounter
--- OUTSIDE RECORDS SUMMARY | 2024-01-14 18:57 | External Medical Summary ---
Author Name Unknown Address Unknown Organization [id number]:LABORATORY [facility] - [address] [facility] [address] Laboratory Report Ordering Provider Test Date Status TRENA ARCE 12/07/2023 09:26:43 Final <10,000 colonies/ml mixed no rmal roberth Observation Date Value Abnormality Reference (Units ) Status Bacteria identified in Specimen by Culture 12/07/2023 09:26:43 [id number]^ESCHE RICHIA COLI ESBL Abnormal Final >100,000 colonies/mL Escheri elvin coli ESBL producing organism, This patient may require isolation.
This gram negative bacilli displays in vitro resistance to multiple antibiotics. This patient may require isolation. Carbapenem use is preferred. Contact infectious disease service for further recommendations. Performing Location LABORATORY [facility] - [address] [facility] [address] Ordering Provider Test Date Status TRENA ARCE 12/07/2023 09:26:43 Final Observation Date Value Abnormality Reference (Units ) Status Ampicillin 12/07/2023 09:26:43 >=32 Resistant Final Ampicillin + Sulbactam 12/07/2023 09:26:43 16 Intermediate Final Cefazolin 12/07/2023 09:26:43 >=64 Resistant Final Cefepime susceptibility 12/07/2023 09:26:43 Susceptible Final This is an appended report. These results have been appended to a previously preliminary verified report. Ceftriaxone suceptibility 12/07/2023 09:26:43 32 Resi stant Final Ciprofloxacin 12/07/2023 09:26:43 >=4 Resistant Final Due to serious side effects, the FDA has advised against using Ciprofloxacin to treat uncomplicated UTIs and respiratory tract infections unless there are no alternative treatment options. Gentamicin susceptibility 12/07/2023 09:26:43 >=16 Resi stant Final Levofloxacin susceptibility 12/07/2023 09:26:43 >=8 Re sistant Final Due to serious side effects, the FDA has advised against using Levofloxacin to treat uncomplicated UTIs and respiratory tract infections unless there are no alternative treatment options. Meropenem [Susceptibility] 12/07/2023 09:26:43 <=0.25 Tanja ceptible Final Nitrofurantoin susceptibility 12/07/2023 09:26:43 64 Intermediate Final Piperacillin + Tazobactamsusceptibility 12/07/2023 09:26:43 <=4 Susceptible Final Tobramycinsusceptibility 12/07/2023 09:26:43 8 Resis tant Final TMP-SMZ susceptibility 12/07/2023 09:26:43 <=20 Suscept ible Final Performing Location LABORATORY [facility] - [address] [facility] [address] Ordering Provider Test Date Status TRENA ARCE 12/07/2023 09:26:43 Final Observation Date Value Abnormality Reference (Units ) Status Ertapenem [Susceptibility] 12/07/2023 09:26:43 29 Susceptible Susceptible >21 , Intermediate <=21 , Resistant <=18 Final Test: Culture, Urine, Quanti tative
Specimen Source: Urine, Clean Catch
Specimen Type: Urine
Specimen Date: 12/07/2023925
Result Date: 12/10/2023 120
Result Status: Final result
Abnormal: Yes
Resulting Lab: LABORATORY [facility]
[address]
[place] [address]

CULTURE

>100,000 colonies/mL Escherichia coli ESBL producing organism, This patient may
require isolation. (Abnormal)

This gram negative bacilli displays in vitro resistance to multiple
antibiotics. This patient may require isolation. Carbapenem use is
preferred. Contact infectious disease service for further recommendations.

<10,000 colonies/ml mixed normal roberth

SUSCEPTIBILITY

Escherichia coli ESBL producing
organism, This patient may require
isolation.
METHOD CHAMORRO COHEN

AMPICILLIN
AMPICILLIN/SULBACTAM
CEFAZOLIN
CEFEPIME
CEFTRIAXONE
CIPROFLOXACIN
ERTAPENEM 29 Susceptible
GENTAMICIN
LEVOFLOXACIN
MEROPENEM
NITROFURANTOIN
PIPERACILLIN TAZOBACTAM
TOBRAMYCIN
TRIMETH/SULFAMETHOXAZOLE

Escherichia coli ESBL producing
organism, This patient may require
isolation.
METHOD MICROBROTH DILUTIONS

AMPICILLIN >=32 Resistant
AMPICILLIN/SULBACTAM 16 Intermediate
CEFAZOLIN >=64 Resistant
CEFEPIME -- Susceptible - Dose Dependent
[1]
CEFTRIAXONE 32 Resistant
CIPROFLOXACIN >=4 Resistant [2]
ERTAPENEM
GENTAMICIN >=16 Resistant
LEVOFLOXACIN >=8 Resistant [3]
MEROPENEM <=0.25 Susceptible
NITROFURANTOIN 64 Intermediate
PIPERACILLIN TAZOBACTAM <=4 Susceptible
TOBRAMYCIN 8 Resistant
TRIMETH/SULFAMETHOXAZOLE <=20 Susceptible

[1] This is an appended report. These results have been appended to a
previously preliminary verified report.

[2] Due to serious side effects, the FDA has advised against using
Ciprofloxacin to treat uncomplicated UTIs and respiratory tract infections
unless there are no alternative treatment options.

[3] Due to serious side effects, the FDA has advised against using
Levofloxacin to treat uncomplicated UTIs and respiratory tract infections
unless there are no alternative treatment options.

null Performing Location LABORATORY [facility] - [address] [facility] [address]
--- NOTE | 2024-01-14 19:17 | Emergency Department Note ---
Impression & Plan Abdominal pain, LLQ (left lower quadrant), Chest pain, Diverticulitis of sigmoid colon ED Provider Note HISTORY OF PRESENT ILLNESS: Patient is an 88-year-old female presenting with lower abdominal pain. Patient reports that just after lunch this afternoon she started having pain in her bilateral lower abdomen. States that the pain has been relatively constant since onset. She locates the pain to her bilateral lower quadrants, but states it slightly worse in her left lower quadrant. Denies any nausea, vomiting or diarrhea. Denies any recent travel or recent sick contact exposures. She reports an abdominal surgical history significant for cholecystectomy and appendectomy. She states that the pain is a pressure-like sensation. Denies any chest pain or shortness of breath. Denies any dysuria or hematuria. Denies any alleviating or exacerbating factors to the pain. She denies any history of atrial fibrillation and is not on any anticoagulation. ROS: as above PHYSICAL EXAM: Constitutional: Patient appears in no acute distress. HENT: Head: Normocephalic and atraumatic. Eyes: EOMI, PERRL Mouth/Throat: Mucous membranes moist. Neck: Trachea midline. Neck supple. Cardiovascular: RRR, No murmurs, rubs or gallops. Intact distal pulses. Pulmonary/Chest: No respiratory distress. Breath sounds clear and equal bilaterally. No wheezes or rales. No chest wall tenderness to palpation. Abdominal: Abdomen soft, no rebound or guarding. LLQ TTP Musculoskeletal: No edema, tenderness or deformity noted. Skin: Warm and dry. No rash, erythema, pallor or cyanosis Psychiatric: Appropriate mood and affect for situation. Neurological: Alert and keenly responsive. CN II-XII grossly intact, moving all extremities equally and fully. MDM: - Vitals signs showed hypertension - History obtained via patient. History as above. - Chronic conditions affecting care: CKD; HTN; DM-2; GERD; hypothyroidism; myelodysplastic disorder - Differential diagnoses include, but are not limited to: Aortic aneurysm; diverticulitis; ischemic colitis; ureteral calculi; UTI - Order placed for continuous cardiac monitoring. At this time, monitor showed rate of 80 bpm with normal sinus rhythm, per my interpretation. - External medical records reviewed. Discharge summary dated 12/09/2023 was reviewed. Patient was admitted that time for complicated urinary tract infection secondary to ESBL E. coli. - EKG interpreted by myself showed normal sinus rhythm. Rate 79 bpm. QT 392. Noted to have some ST depressions with T wave inversions in leads V4 through V6. - Laboratory workup interpreted by myself showed slight leukocytosis (WBC 11.03); normal PT/INR; stable electrolytes; CKD; normal lipase; elevated troponin (14.5) - UA negative for infection - CT abdomen/pelvis wo contrast showed sigmoid diverticulitis. IV Zosyn ordered for antibiotic coverage. - Patient was not initially complaining of chest pain in the emergency department. However, she started complaining of some chest pain with her elevated blood pressure. She given 10 mg of IV hydralazine with improvement in her pressure and chest pain symptoms. - UA negative for infection. - Discussion was had with registered nurse hh case manager about patient's case and need for admission - Hospitalist, Dr. Coello, consulted for admission - Patient admitted to [facility] for further evaluation and management. ASSESSMENT AND PLAN: Diagnosis: LLQ abdominal pain; sigmoid diverticulitis; chest pain Plan: Admit Past Med/Surg History Problem List (Updated 01/14/24 @ 22:10 by Alla Rosario MD) Diverticulitis of sigmoid colon (Acute) Chest pain (Acute) Abdominal pain, LLQ (left lower quadrant) (Acute) Acute metabolic encephalopathy Acute alteration in mental status (Acute) Urinary tract infection (Acute) Abnormal LFTs (Acute) SOL (acute kidney injury) (Acute) Hypomagnesemia (Acute) Generalized weakness (Acute) Hypomagnesemia (Acute) Generalized weakness (Acute) Elevated troponin (Acute) Chest pain (Acute) Decreased appetite Generalized weakness Elevated troponin Chronic anemia Chest pain (Acute) Abnormal EKG (Acute) Chronic RLQ pain Basal cell carcinoma of skin of ankle (Acute) Left knee DJD (Acute) Lichen sclerosus et atrophicus (Acute) Myelodysplastic syndrome (Acute) Right knee DJD (Acute) Urge and stress incontinence (Acute) Low back pain DVT prophylaxis Abnormal ECG Pernicious anemia DORIS on CPAP Hypothyroidism GERD (gastroesophageal reflux disease) Dyslipidemia DM type 2 (diabetes mellitus, type 2) CKD (chronic kidney disease), stage III (Acute) Anemia due to chronic kidney disease HTN (hypertension) Substernal chest pain (Acute) Chest pain (Acute) Medical History (Updated 01/14/24 @ 22:10 by Alla Rosario MD) CKD (chronic kidney disease) Complicated UTI (urinary tract infection) History of ESBL E. coli infection Hypertensive urgency IgM lambda paraproteinemia Surgical History History of gynecologic surgery anterior colporrhaphy History of hysteroscopy Status post tubal ligation History of total bilateral knee replacement (TKR) History of knee surgery History of appendectomy History of dilation and curettage S/P cholecystectomy Family History Mother , 85 Heart disease Diabetes Father , 65 Pancreatic cancer Sister Uterine cancer Breast cancer Denies family history of Ovarian cancer Colorectal cancer Social History Smoking Status: Former smoker Tobacco Type: Cigarettes Second Hand Exposure: No; Do You Dip or Chew Tobacco: No; Hx Alcohol Use: No Hx Substance Use: No Preferred Language: German Communication Ability: Effective Ship Purser Required: No Beliefs That Will Affect Care: None marital status: Current Living Situation: Spouse Current Living Situation Comment: at home current occupational status: retired Feels Safe at Home: Yes Assistive Devices: Cane, Denture - Upper, Denture - Lower, Glasses and Walker Allergies Allergies Allergy/AdvReac Type Severity Reaction Status Date / Time ciprofloxacin Allergy Intermediate RASH Verified 10/14/23 21:16 BENEDICT Inhibitors AdvReac Intermediate COUGH Verified 10/14/23 21:16 metformin AdvReac Intermediate GI SYMPTOMS Verified 10/14/23 21:16 Home Meds Home Medications Medication Instructions Recorded Confirmed levothyroxine 75 mcg tablet 75 mcg PO DAILYBB 06/11/18 01/14/24 aspirin 81 mg tablet,delayed 81 mg PO HS 03/27/19 01/14/24 release dulaglutide 0.75 mg/0.5 mL 0.75 mg subcut WK 03/27/19 01/14/24 subcutaneous pen injector (TrulicTour Engine) epoetin lou 10,000 unit/mL 10,000 unit subcut MONTHLY PRN 03/27/19 01/14/24 injection solution (Procrit) WHEN NEEDED oxybutynin chloride 5 mg 5 mg PO HS 03/27/19 01/14/24 tablet,extended release 24 hr biotin 1 mg capsule 1 mg PO QDL 05/26/22 01/14/24 nitroglycerin 0.6 mg sublingual 0.6 mg sublingual DIRECTED PRN 05/26/22 01/14/24 tablet (Nitrostat) Chest Pain patiromer calcium sorbitex 8.4 8.4 g PO Q OTHER DAY 05/26/22 01/14/24 gram oral powder packet (Veltassa) cholecalciferol (vitamin D3) 25 25 mcg PO QAM 05/22/23 01/14/24 mcg (1,000 unit) tablet (Vitamin D3) ferrous sulfate 325 mg (65 mg 325 mg PO QDB 05/22/23 01/14/24 iron) tablet (FeroSul) fluticasone propionate 50 2 spray intranasal DAILY PRN Nasal 05/22/23 01/14/24 mcg/actuation nasal Congestion spray,suspension nystatin 100,000 unit/gram topical 1 applic topical TID PRN irritation 05/22/23 01/14/24 powder (Nyamyc) Saccharomyces boulardii 250 mg 250 mg PO DAILY 08/13/23 01/14/24 capsule (Florastor) psyllium husk 0.4 gram capsule 0.4 g PO Q OTHER DAY 08/13/23 01/14/24 (Metamucil) Results & Data (ED) Vital Signs Vital Signs - 24 hr 01/14/24 18:51 01/14/24 19:14 01/14/24 19:14 Temperature 36.3 C L Temperature Source Temporal Artery Scan Pulse Rate 84 Pulse Rate [Apical] 76 Pulse Rhythm [Apical] Pulse Strength [Apical] Respiratory Rate 18 20 Respiratory Effort / Characteristics Non-Labored Spontaneous Non-Labored Spontaneous Respiratory Depth Normal Normal Respiratory Pattern Regular Blood Pressure 199/95 H Blood Pressure [Right Arm] 184/82 H Blood Pressure Mean 129 Blood Pressure Mean [Right Arm] 116 Pulse Oximetry 97 96 96 Oxygen Delivery Method Room Air Room Air Room Air Sepsis Recent Fever Within 48 Hours No Sepsis New/Unexplained Change in Mental Status N/A Sepsis Action Taken by Nursing No Action Required 01/14/24 19:19 01/14/24 19:57 01/14/24 21:00 Temperature Temperature Source Pulse Rate 67 Pulse Rate [Apical] 74 77 Pulse Rhythm [Apical] Pulse Strength [Apical] Respiratory Rate 22 22 Respiratory Effort / Characteristics Non-Labored Spontaneous Non-Labored Respiratory Depth Normal Normal Respiratory Pattern Blood Pressure Blood Pressure [Right Arm] 175/94 H 215/87 H Blood Pressure Mean Blood Pressure Mean [Right Arm] 121 129 Pulse Oximetry 96 96 Oxygen Delivery Method Room Air Sepsis Recent Fever Within 48 Hours Sepsis New/Unexplained Change in Mental Status Sepsis Action Taken by Nursing 01/14/24 22:03 Temperature 36.9 C Temperature Source Oral Pulse Rate Pulse Rate [Apical] 80 Pulse Rhythm [Apical] Regular Pulse Strength [Apical] Normal Respiratory Rate 19 Respiratory Effort / Characteristics Non-Labored Spontaneous Respiratory Depth Normal Respiratory Pattern Blood Pressure Blood Pressure [Right Arm] 172/84 H Blood Pressure Mean Blood Pressure Mean [Right Arm] 113 Pulse Oximetry 98 Oxygen Delivery Method Sepsis Recent Fever Within 48 Hours Sepsis New/Unexplained Change in Mental Status Sepsis Action Taken by Nursing Laboratory Data 01/14/24 19:12 01/14/24 19:12 Lab Results 01/14/24 01/14/24 Range/Units 19:12 20:33 WBC 11.03 H (4.8-10.8) K/ul RBC 3.68 L (4.20-5.40) M/uL Hgb 11.1 L (12.0-16.0) g/dl Hct 33.3 L (37.0-47.0) % MCV 90.5 (80.0-100.0) fL MCH 30.2 (25.0-34.0) pg MCHC 33.3 (32.0-36.0) g/dL RDW Std Deviation 40.2 (36.4-46.3) fL RDW Coeff of Elpidio 12.2 (11.5-14.5) % Plt Count 184 (130-400) K/uL MPV 10.7 (9.4-12.4) fL Immature Gran % (Auto) 0.2 % Neut % (Auto) 68.2 % Lymph % (Auto) 21.8 % Douglas % (Auto) 6.9 % Eos % (Auto) 2.4 % Baso % (Auto) 0.5 % Neut # (Auto) 7.51 H (1.40-6.50) K/uL Lymph # (Auto) 2.41 (1.20-3.40) K/uL Douglas # (Auto) 0.76 H (0.11-0.59) K/uL Eos # (Auto) 0.27 (0.00-0.50) K/uL Baso # (Auto) 0.06 (0.00-0.20) K/uL Immature Gran # (Auto) 0.02 (0.01-0.20) K/uL PT 10.5 (9.0-12.0) Seconds INR 1.0 (0.9-1.1) Sodium 140 (136-145) mmol/L Potassium 3.7 (3.5-5.1) mmol/L Chloride 104 (98-107) mmol/L Carbon Dioxide 28 (21-32) mmol/L Anion Gap 8 (3-11) BUN 25 H (6-23) mg/dl Creatinine 1.37 H (0.6-1.2) mg/dl Est Cr Clr Drug Dosing 30.3 ml/min Est GFR ( Amer) 40.4 ml/min Est GFR (Non-Af Amer) 34.8 ml/min BUN/Creatinine Ratio 18.2 (10-20) Glucose 214 H (70-99(Fasting)) mg/dl Lactate 1.0 (0.4-2.0) mmol/L Calcium 9.2 (8.6-10.3) mg/dl Total Bilirubin 0.6 (0.2-1.0) mg/dl AST 30 (13-39) U/L ALT 36 (7-52) U/L Alkaline Phosphatase 51 (34-104) U/L Troponin I High Sens 14.5 H 14.9 H (0-14) pg/ml Total Protein 6.7 (6.0-8.3) gm/dl Albumin 4.0 (3.4-5.0) gm/dl Globulin 2.7 (2.5-4.0) gm/dl Albumin/Globulin Ratio 1.5 (0.9-2) Lipase 36 (11-82) U/L Urine Color Yellow Urine Appearance Clear (Clear) Urine pH 5.5 (4.5-7.5) Ur Specific [place] 1.017 (1.000-1.030) Urine Protein 3+ H (Negative) Urine Glucose (UA) Negative (Negative) Urine Ketones Negative (Negative) Urine Blood Negative (Negative) Urine Nitrite Negative (Negative) Urine Bilirubin Negative (Negative) Urine Urobilinogen Negative (Negative) Ur Leukocyte Esterase Negative (Negative) Urine WBC (Auto) 6-10 H (0-5) /hpf Urine RBC (Auto) 0-2 (0-2) /hpf U Hyaline Cast (Auto) 0-2 (0-2) /lpf U Epithel Cells (Auto) 0-2 (0-2) /hpf Urine Bacteria (Auto) None Seen (None Seen) Administered Medications Discontinued Medications Hydralazine HCl (Hydralazine Hcl 20 Mg/Ml Vial) 10 mg IV NOW STA Stop: 01/14/24 21:22 Last Admin: 01/14/24 21:27 Dose: 10 mg Documented By: ROSALINDA Piperacillin Sod/Tazobactam Sod (Zosyn) 4.5 gm in 100 mls @ 200 mls/hr IV NOW ONE Stop: 01/14/24 22:02 Last Admin: 01/14/24 22:03 Dose: 200 mls/hr Documented By: ROSALINDA Imaging Data Radiologist's Impression: Abdomen/Pelvis CT 01/14/24 19:43 Exam(s): CT ABDOMEN + PELVIS Without Contrast EXAM: CT Abdomen and Pelvis Without Intravenous Contrast CLINICAL HISTORY: Left lower quadrant Pain. TECHNIQUE: Axial computed tomography images of the abdomen and pelvis without intravenous contrast. CTDI is 26.49 mGy and DLP is 1240.15 mGy-cm. Automated exposure control was utilized for the study. A dose lowering technique was utilized adhering to the principles of ALARA. COMPARISON: Abdominal ultrasound 10/14/[address] abdomen and pelvis 05/22/2023 FINDINGS: Lung bases: Unremarkable. No mass. No consolidation. ABDOMEN: Liver: Unremarkable. Gallbladder and bile ducts: Cholecystectomy. No ductal dilation. Pancreas: Unremarkable. No ductal dilation. Spleen: Unremarkable. No splenomegaly. Adrenals: Unremarkable. No mass. Kidneys and ureters: Simple appearing bilateral renal cysts are present, no follow up is needed. The kidneys are otherwise unremarkable. No hydronephrosis. Stomach and bowel: Sigmoid diverticulitis. No obstruction. PELVIS: Appendix: No findings to suggest acute appendicitis. Bladder: Unremarkable. No stones. Reproductive: Unremarkable as visualized. ABDOMEN and PELVIS: Intraperitoneal space: Unremarkable. No free air. No significant fluid collection. Bones/joints: There are degenerative changes of the spine. No acute fracture. No dislocation. Soft tissues: Unremarkable. Vasculature: Mild atherosclerosis. No abdominal aortic aneurysm. Lymph nodes: Unremarkable. No enlarged lymph nodes. IMPRESSION: Sigmoid diverticulitis. No abscess or perforation. Electronically signed by: Mallory Padron MD 01/14/24 21:30 PM Discharge Plan Visit Data Chief Complaint: Abdominal Pain Stated Complaint: ABD PAIN, AND SWOLLEN, ED Provider: Alla Rosario Discharge Problem: Abdominal pain, LLQ (left lower quadrant), Chest pain, Diverticulitis of sigmoid colon Forms Stand Alone Forms: [facility] Prescriptions Prescriptions: No Action levothyroxine 75 mcg tablet 75 mcg PO DAILYBB aspirin 81 mg Tablet,Delayed Release (Dr/Ec) 81 mg PO HS oxybutynin chloride 5 mg tablet extended release 24hr 5 mg PO HS Procrit 10,000 unit/mL solution 10,000 unit subcut MONTHLY PRN (Reason: WHEN NEEDED) Trulicity 0.75 mg/0.5 mL pen injector 0.75 mg SUBCUT WK Rx Instructions: ADMINISTER EVERY MONDAY Veltassa 8.4 gram powder in packet 8.4 g PO Q OTHER DAY nitroglycerin [Nitrostat] 0.6 mg Tablet, Sublingual 0.6 mg sublingual DIRECTED PRN (Reason: Chest Pain) biotin 1 mg Capsule 1 mg PO QDL ferrous sulfate [FeroSul] 325 mg (65 mg iron) tablet 325 mg PO QDB nystatin [Nyamyc] 100,000 unit/gram powder 1 applic TOPICAL TID PRN (Reason: irritation) fluticasone propionate 50 mcg/actuation spray,suspension 2 spray INTRANASAL DAILY PRN (Reason: Nasal Congestion) cholecalciferol (vitamin D3) [Vitamin D3] 25 mcg (1,000 unit) Tablet 25 mcg PO QAM psyllium husk [Metamucil] 0.4 gram Capsule 0.4 g PO Q OTHER DAY Saccharomyces boulardii [Florastor] 250 mg capsule 250 mg PO DAILY Rx Instructions: swallow whole Referrals Referrals: Milton Balderas MD [Primary Care Provider] -
[2024-01-14 19:28] LABS: Basophils # (auto) 0.06 K/uL (0.00-0.20); Basophils % (auto) 0.5 %; Eosinophils # (auto) 0.27 K/uL (0.00-0.50); Eosinophils % (auto) 2.4 %; Hematocrit (blood only) 33.3 % (37.0-47.0); Hemoglobin 11.1 g/dl (12.0-16.0); Immature Granulocytes # (auto) 0.02 K/uL (0.01-0.20); Immature Granulocytes % (auto) 0.2 %; Lymphocytes # (auto) 2.41 K/uL (1.20-3.40); Lymphocytes % (auto) 21.8 %; Mean Corpuscular Hemoglobin 30.2 pg (25.0-34.0); Mean Corpuscular Hgb Conc 33.3 g/dL (32.0-36.0); Mean Corpuscular Volume 90.5 fL (80.0-100.0); Mean Platelet Volume 10.7 fL (9.4-12.4); Monocytes # (auto) 0.76 K/uL (0.11-0.59); Monocytes % (auto) 6.9 %; Neutrophils # (auto) 7.51 K/uL (1.40-6.50); Neutrophils % (auto) 68.2 %; Platelet Count 184 K/uL (130-400); RDW Coefficient of Variation 12.2 % (11.5-14.5); RDW Standard Deviation 40.2 fL (36.4-46.3); Red Blood Count 3.68 M/uL (4.20-5.40); White Blood Count 11.03 K/ul (4.8-10.8)
[2024-01-14 19:38] LABS: Appearance Urine Clear (Clear); Bacteria Urine Automated None Seen (None Seen); Bilirubin Urine Negative (Negative); Blood Urine Negative (Negative); Cast Urine Automated 0-2 /lpf (0-2); Color Urine Yellow; Epithelial Cell Urine Auto 0-2 /hpf (0-2); Glucose Urine UA Negative (Negative); Ketones Urine Negative (Negative); Leukocyte Esterase Urine Negative (Negative); Nitrite Urine Negative (Negative); Protein Urine 3+ (Negative); RBC Urine Automated 0-2 /hpf (0-2); Specific Gravity Urine 1.017 (1.000-1.030); Urobilinogen Urine Negative (Negative); pH Urine 5.5 (4.5-7.5)
[2024-01-14 19:42] LABS: Albumin Globulin Ratio 1.5 (0.9-2); BUN Creatinine Ratio 18.2 (10-20); Bilirubin,Total 0.6 mg/dl (0.2-1.0); Calcium 9.2 mg/dl (8.6-10.3); Creatinine Clr Calc Pharmacy 30.3 ml/min; Est GFR (African American) 40.4 ml/min; Est GFR (Non-African American) 34.8 ml/min; Globulin 2.7 gm/dl (2.5-4.0); Potassium 3.7 mmol/L (3.5-5.1); Total Protein 6.7 gm/dl (6.0-8.3)
[2024-01-14 19:49] LABS: Troponin I High Sensitivity 14.5 pg/ml (0-14)
[2024-01-14 19:50] LABS: Prothrombin Time 10.5 Seconds (9.0-12.0)
[2024-01-14] MEDS: hydrALAZINE HCL 20 MG/ML VIAL IV STA (21:27)
--- NOTE | 2024-01-14 21:31 | CT Scan Report ---
Exam(s): CT ABDOMEN + PELVIS Without Contrast EXAM: CT Abdomen and Pelvis Without Intravenous Contrast CLINICAL HISTORY: Left lower quadrant Pain. TECHNIQUE: Axial computed tomography images of the abdomen and pelvis without intravenous contrast. CTDI is 26.49 mGy and DLP is 1240.15 mGy-cm. Automated exposure control was utilized for the study. A dose lowering technique was utilized adhering to the principles of ALARA. COMPARISON: Abdominal ultrasound 10/14/[address] abdomen and pelvis 05/22/2023 FINDINGS: Lung bases: Unremarkable. No mass. No consolidation. ABDOMEN: Liver: Unremarkable. Gallbladder and bile ducts: Cholecystectomy. No ductal dilation. Pancreas: Unremarkable. No ductal dilation. Spleen: Unremarkable. No splenomegaly. Adrenals: Unremarkable. No mass. Kidneys and ureters: Simple appearing bilateral renal cysts are present, no follow up is needed. The kidneys are otherwise unremarkable. No hydronephrosis. Stomach and bowel: Sigmoid diverticulitis. No obstruction. PELVIS: Appendix: No findings to suggest acute appendicitis. Bladder: Unremarkable. No stones. Reproductive: Unremarkable as visualized. ABDOMEN and PELVIS: Intraperitoneal space: Unremarkable. No free air. No significant fluid collection. Bones/joints: There are degenerative changes of the spine. No acute fracture. No dislocation. Soft tissues: Unremarkable. Vasculature: Mild atherosclerosis. No abdominal aortic aneurysm. Lymph nodes: Unremarkable. No enlarged lymph nodes. IMPRESSION: Sigmoid diverticulitis. No abscess or perforation. Electronically signed by: Mallory Padron MD 01/14/24 21:30 PM
[2024-01-14] MEDS: PIPERACILLIN/TAZOBACTAM 4.5 GM/100 ML BAG IV ONE (22:03)
[2024-01-14] MEDS: fentaNYL citrate PF 100 MCG/2 ML VIAL IV STA (22:58)
[2024-01-14] MEDS: ONDANSETRON INJ 2 MG/ML 2 ML VIAL IV STA (23:09)
--- NOTE | 2024-01-14 23:19 | History & Physical Report ---
Date of Service January 14, 2024 Assessment & Plan (1) Diverticulitis of sigmoid colon: Plan: 88-year-old female with past medical history significant for type 2 diabetes, diabetic neuropathy, hyperlipidemia, hypothyroidism, obstructive sleep apnea on CPAP, CKD stage IV, hypertension, paroxysmal supraventricular tachycardia, GERD, B12 deficiency, kyphosis, mild dementia, anemia of chronic kidney disease, pernicious anemia, history of COVID, and recent admissions for ESBL UTI presents with abdominal pain in the left lower quadrant region starting today 5/10 in severity. Denies any nausea. Did not move her bowels today. Had normal bowel movements yesterday. Normal micturition as per patient. She is getting chest pains on and off when asked when and how severe she says she do not know. Denies shortness of breath. Denies cough. Afebrile. Denies headache. No runny nose or sore throat. She states that she ambulate without support. Lives with her . Patient blood pressure was running high in the ER. Received a dose of hydralazine. Seems uncomfortable with the pain. Diverticulitis of sigmoid colon No abscess or perforation on CAT scan Started on IV Zosyn N.p.o. for now IV fluids IV antiemetics and pain control Consult surgery in a.m. Hypertensive urgency Chest pains on and off Currently not on any medical blood pressure medications Mild elevation of troponins mostly demand ischemia IV labetalol as needed Continue home aspirin Serial cardiac enzymes and echo Telemetry close monitor Cardiology consult in a.m. for further recommendations CKD stage IV Baseline creatinine around 1.4 Presented with creatinine 1.37 Will follow labs Obstructive sleep apnea On CPAP nightly Diabetes On Trulicity Sliding scale Will follow blood sugars and HbA1c levels Anemia of chronic kidney disease Hemoglobin 11.1 We will follow labs Hx of esbl uti Ua is ok Hypothyroidism On Synthyroid DVT prophylaxis SCDs for now If no procedures planned will place on heparin subcu Disposition Telemetry Full code. History of Present Illness Chief Complaint: Abdominal pain, chest pains Primary Care Provider: Milton Balderas MD 88-year-old female with past medical history significant for type 2 diabetes, diabetic neuropathy, hyperlipidemia, hypothyroidism, obstructive sleep apnea on CPAP, CKD stage IV, hypertension, paroxysmal supraventricular tachycardia, GERD, B12 deficiency, kyphosis, mild dementia, anemia of chronic kidney disease, pernicious anemia, history of COVID, and recent admissions for ESBL UTI presents with abdominal pain in the left lower quadrant region starting today 10 in severity. Denies any nausea. Did not move her bowels today. Had normal bowel movements yesterday. Normal micturition as per patient. She is getting chest pains on and off and when asked when and how severe she says she do not know. Denies shortness of breath. Denies cough. Afebrile. Denies headache. No runny nose or sore throat. She states that she ambulate without support. Lives with her . Patient blood pressure was running high in the ER. Received a dose of hydralazine. Seems uncomfortable with the pain. Past medical history. As mentioned above Past surgical history. Bilateral knee arthroplasty. Colonoscopy. Colonoscopy biopsy. Dilatation and curettage. EGD. EGD with biopsy. Appendectomy .cholecystectomy. Social history. . Quit smoking 1979. No alcohol use. No drug use. Family history. Mother had Alzheimer's disease. Father had pancreatic cancer. Brother had throat cancer. Sister had breast cancer Allergies Allergy/AdvReac Type Severity Reaction Status Date / Time ciprofloxacin Allergy Intermediate RASH Verified 10/14/23 21:16 BENEDICT Inhibitors AdvReac Intermediate COUGH Verified 10/14/23 21:16 metformin AdvReac Intermediate GI SYMPTOMS Verified 10/14/23 21:16 Home Medications Medication Instructions Recorded Confirmed Type levothyroxine 75 mcg tablet 75 mcg PO DAILYBB 06/11/18 01/14/24 History aspirin 81 mg tablet,delayed 81 mg PO HS 03/27/19 01/14/24 History release dulaglutide 0.75 mg/0.5 mL 0.75 mg subcut WK 03/27/19 01/14/24 History subcutaneous pen injector (Trulicity) epoetin lou 10,000 unit/mL 10,000 unit subcut MONTHLY PRN 03/27/19 01/14/24 History injection solution (Procrit) WHEN NEEDED oxybutynin chloride 5 mg 5 mg PO HS 03/27/19 01/14/24 History tablet,extended release 24 hr biotin 1 mg capsule 1 mg PO QDL 05/26/22 01/14/24 History nitroglycerin 0.6 mg sublingual 0.6 mg sublingual DIRECTED PRN 05/26/22 01/14/24 History tablet (Nitrostat) Chest Pain patiromer calcium sorbitex 8.4 8.4 g PO Q OTHER DAY 05/26/22 01/14/24 History gram oral powder packet (Veltassa) cholecalciferol (vitamin D3) 25 25 mcg PO QAM 05/22/23 01/14/24 History mcg (1,000 unit) tablet (Vitamin D3) ferrous sulfate 325 mg (65 mg 325 mg PO QDB 05/22/23 01/14/24 History iron) tablet (FeroSul) fluticasone propionate 50 2 spray intranasal DAILY PRN Nasal 05/22/23 01/14/24 History mcg/actuation nasal Congestion spray,suspension nystatin 100,000 unit/gram topical 1 applic topical TID PRN irritation 05/22/23 01/14/24 History powder (Nyamyc) Saccharomyces boulardii 250 mg 250 mg PO DAILY 08/13/23 01/14/24 History capsule (Florastor) psyllium husk 0.4 gram capsule 0.4 g PO Q OTHER DAY 08/13/23 01/14/24 History (Metamucil) Past Med/Surg History Problem List Diverticulitis of sigmoid colon (Acute) Chest pain (Acute) Abdominal pain, LLQ (left lower quadrant) (Acute) Acute metabolic encephalopathy Acute alteration in mental status (Acute) Urinary tract infection (Acute) Abnormal LFTs (Acute) SOL (acute kidney injury) (Acute) Hypomagnesemia (Acute) Generalized weakness (Acute) Hypomagnesemia (Acute) Generalized weakness (Acute) Elevated troponin (Acute) Chest pain (Acute) Decreased appetite Generalized weakness Elevated troponin Chronic anemia Chest pain (Acute) Abnormal EKG (Acute) Chronic RLQ pain Basal cell carcinoma of skin of ankle (Acute) Left knee DJD (Acute) Lichen sclerosus et atrophicus (Acute) Myelodysplastic syndrome (Acute) Right knee DJD (Acute) Urge and stress incontinence (Acute) Low back pain DVT prophylaxis Abnormal ECG Pernicious anemia DORIS on CPAP Hypothyroidism GERD (gastroesophageal reflux disease) Dyslipidemia DM type 2 (diabetes mellitus, type 2) CKD (chronic kidney disease), stage III (Acute) Anemia due to chronic kidney disease HTN (hypertension) Substernal chest pain (Acute) Chest pain (Acute) Medical History CKD (chronic kidney disease) Complicated UTI (urinary tract infection) History of ESBL E. coli infection Hypertensive urgency IgM lambda paraproteinemia Surgical History History of gynecologic surgery anterior colporrhaphy History of hysteroscopy Status post tubal ligation History of total bilateral knee replacement (TKR) History of knee surgery History of appendectomy History of dilation and curettage S/P cholecystectomy Family History Mother , 85 Heart disease Diabetes Father , 65 Pancreatic cancer Sister Uterine cancer Breast cancer Denies family history of Ovarian cancer Colorectal cancer Social History Smoking Status: Former smoker Tobacco Type: Cigarettes Second Hand Exposure: No; Do You Dip or Chew Tobacco: No; Hx Alcohol Use: No Hx Substance Use: No Preferred Language: [place]ian Communication Ability: Effective Health Sciences Program Coordinator Required: No Beliefs That Will Affect Care: None marital status: Current Living Situation: Spouse Current Living Situation Comment: at home current occupational status: retired Other Information That Helps Us Care for You: No Feels Safe at Home: Yes Safety Concerns: Feels Safe At This Time Assistive Devices: CPAP, Denture - Upper, Denture - Lower and Glasses Review of Systems Review of Systems: All systems reviewed & are unremarkable except as noted in HPI & below Physical Exam Physical Exam: General- Not in acute distress Head- atraumatic Eyes- PERRL. ENT- oropharynx clear Neck- supple, no JVD. Lungs- clear to auscultation no wheezing or crackles. Heart- regular rate and rhythm; no murmur, no gallop. Abdomen- normal bowel sounds, soft, LLQ tenderness present, No distension Extremities- no pretibial edema, no erythema seen Neuro- alert, oriented PERRL, no facial palsy; no dysarthria; moves extremities Results & Data Results & Data Vital Signs (Past 12 Hours) Vital Signs Temp Pulse Pulse Resp BP BP Pulse Ox 01/14/24 22:44 79 14 181/79 H 96 01/14/24 22:03 36.9 C 80 19 172/84 H 98 01/14/24 21:00 77 22 215/87 H 96 01/14/24 19:57 74 22 175/94 H 96 01/14/24 19:19 67 01/14/24 19:14 96 01/14/24 19:14 76 20 184/82 H 96 01/14/24 18:51 36.3 C L 84 18 199/95 H 97 O2 Del Method 01/14/24 22:44 Room Air 01/14/24 22:03 01/14/24 21:00 01/14/24 19:57 Room Air 01/14/24 19:19 01/14/24 19:14 Room Air 01/14/24 19:14 Room Air 01/14/24 18:51 Room Air Diagnostic Findings Laboratory Results WBC 11.03 K/ul (4.8-10.8) H 01/14/24 19:12 RBC 3.68 M/uL (4.20-5.40) L 01/14/24 19:12 Hgb 11.1 g/dl (12.0-16.0) L 01/14/24 19:12 Hct 33.3 % (37.0-47.0) L 01/14/24 19:12 MCV 90.5 fL (80.0-100.0) 01/14/24 19:12 MCH 30.2 pg (25.0-34.0) 01/14/24 19:12 MCHC 33.3 g/dL (32.0-36.0) 01/14/24 19:12 RDW Std Deviation 40.2 fL (36.4-46.3) 01/14/24 19:12 RDW Coeff of Elpidio 12.2 % (11.5-14.5) 01/14/24 19:12 Plt Count 184 K/uL (130-400) 01/14/24 19:12 MPV 10.7 fL (9.4-12.4) 01/14/24 19:12 Immature Gran % (Auto) 0.2 % 01/14/24 19:12 Neut % (Auto) 68.2 % 01/14/24 19:12 Lymph % (Auto) 21.8 % 01/14/24 19:12 [place] % (Auto) 6.9 % 01/14/24 19:12 Eos % (Auto) 2.4 % 01/14/24 19:12 Baso % (Auto) 0.5 % 01/14/24 19:12 Neut # (Auto) 7.51 K/uL (1.40-6.50) H 01/14/24 19:12 Lymph # (Auto) 2.41 K/uL (1.20-3.40) 01/14/24 19:12 [place] # (Auto) 0.76 K/uL (0.11-0.59) H 01/14/24 19:12 Eos # (Auto) 0.27 K/uL (0.00-0.50) 01/14/24 19:12 Baso # (Auto) 0.06 K/uL (0.00-0.20) 01/14/24 19:12 Immature Gran # (Auto) 0.02 K/uL (0.01-0.20) 01/14/24 19:12 PT 10.5 Seconds (9.0-12.0) 01/14/24 19:12 INR 1.0 (0.9-1.1) 01/14/24 19:12 Sodium 140 mmol/L (136-145) 01/14/24 19:12 Potassium 3.7 mmol/L (3.5-5.1) 01/14/24 19:12 Chloride 104 mmol/L (98-107) 01/14/24 19:12 Carbon Dioxide 28 mmol/L (21-32) 01/14/24 19:12 Anion Gap 8 (3-11) 01/14/24 19:12 BUN 25 mg/dl (6-23) H 01/14/24 19:12 Creatinine 1.37 mg/dl (0.6-1.2) H 01/14/24 19:12 Est Cr Clr Drug Dosing 30.3 ml/min 01/14/24 19:12 Est GFR ( Amer) 40.4 ml/min 01/14/24 19:12 Est GFR (Non-Af Amer) 34.8 ml/min 01/14/24 19:12 BUN/Creatinine Ratio 18.2 (10-20) 01/14/24 19:12 Glucose 214 mg/dl (70-99(Fasting)) H 01/14/24 19:12 Lactate 1.0 mmol/L (0.4-2.0) 01/14/24 19:12 Calcium 9.2 mg/dl (8.6-10.3) 01/14/24 19:12 Total Bilirubin 0.6 mg/dl (0.2-1.0) 01/14/24 19:12 AST 30 U/L (13-39) 01/14/24 19:12 ALT 36 U/L (7-52) 01/14/24 19:12 Alkaline Phosphatase 51 U/L (34-104) 01/14/24 19:12 Troponin I High Sens 14.9 pg/ml (0-14) H 01/14/24 20:33 Total Protein 6.7 gm/dl (6.0-8.3) 01/14/24 19:12 Albumin 4.0 gm/dl (3.4-5.0) 01/14/24 19:12 Globulin 2.7 gm/dl (2.5-4.0) 01/14/24 19:12 Albumin/Globulin Ratio 1.5 (0.9-2) 01/14/24 19:12 Lipase 36 U/L (11-82) 01/14/24 19:12 Urine Color Yellow 01/14/24 19:12 Urine Appearance Clear (Clear) 01/14/24 19:12 Urine pH 5.5 (4.5-7.5) 01/14/24 19:12 Ur Specific [place] 1.017 (1.000-1.030) 01/14/24 19:12 Urine Protein 3+ (Negative) H 01/14/24 19:12 Urine Glucose (UA) Negative (Negative) 01/14/24 19:12 Urine Ketones Negative (Negative) 01/14/24 19:12 Urine Blood Negative (Negative) 01/14/24 19:12 Urine Nitrite Negative (Negative) 01/14/24 19:12 Urine Bilirubin Negative (Negative) 01/14/24 19:12 Urine Urobilinogen Negative (Negative) 01/14/24 19:12 Ur Leukocyte Esterase Negative (Negative) 01/14/24 19:12 Urine WBC (Auto) 6-10 /hpf (0-5) H 01/14/24 19:12 Urine RBC (Auto) 0-2 /hpf (0-2) 01/14/24 19:12 U Hyaline Cast (Auto) 0-2 /lpf (0-2) 01/14/24 19:12 U Epithel Cells (Auto) 0-2 /hpf (0-2) 01/14/24 19:12 Urine Bacteria (Auto) None Seen (None Seen) 01/14/24 19:12 Impressions Abdomen/Pelvis CT 01/14/24 19:43 Exam(s): CT ABDOMEN + PELVIS Without Contrast EXAM: CT Abdomen and Pelvis Without Intravenous Contrast CLINICAL HISTORY: Left lower quadrant Pain. TECHNIQUE: Axial computed tomography images of the abdomen and pelvis without intravenous contrast. CTDI is 26.49 mGy and DLP is 1240.15 mGy-cm. Automated exposure control was utilized for the study. A dose lowering technique was utilized adhering to the principles of ALARA. COMPARISON: Abdominal ultrasound 10/14/[address] abdomen and pelvis 05/22/2023 FINDINGS: Lung bases: Unremarkable. No mass. No consolidation. ABDOMEN: Liver: Unremarkable. Gallbladder and bile ducts: Cholecystectomy. No ductal dilation. Pancreas: Unremarkable. No ductal dilation. Spleen: Unremarkable. No splenomegaly. Adrenals: Unremarkable. No mass. Kidneys and ureters: Simple appearing bilateral renal cysts are present, no follow up is needed. The kidneys are otherwise unremarkable. No hydronephrosis. Stomach and bowel: Sigmoid diverticulitis. No obstruction. PELVIS: Appendix: No findings to suggest acute appendicitis. Bladder: Unremarkable. No stones. Reproductive: Unremarkable as visualized. ABDOMEN and PELVIS: Intraperitoneal space: Unremarkable. No free air. No significant fluid collection. Bones/joints: There are degenerative changes of the spine. No acute fracture. No dislocation. Soft tissues: Unremarkable. Vasculature: Mild atherosclerosis. No abdominal aortic aneurysm. Lymph nodes: Unremarkable. No enlarged lymph nodes. IMPRESSION: Sigmoid diverticulitis. No abscess or perforation. Electronically signed by: Mallory Padron MD 01/14/24 21:30 PM ECG Additional Comments: ECG. Normal sinus rhythm with rate of 79. T wave inversions in anterolateral leads mostly similar to previous. Code Status & VTE Plan VTE Prophylaxis Plan VTE Prophylaxis will be ordered: Yes
--- NOTE | 2024-01-14 23:28 | Surgery Consultation ---
Date of Consultation January 14, 2024 Assessment & Plan (1) Diverticulitis of sigmoid colon: Patient is being admitted on the hospitalist service. From surgery perspective we recommend the following: Provide analgesics Provide antiemetics Implement n.p.o. status. Consideration can be given to advancing her diet beginning with clear liquids as her symptomatology improves Follow serial labs Provide IV fluid for hydration Antibiotic should be implemented. She has had Zosyn initiated in the [facility] department and this should continue I discussed with the patient that would prefer to treat this in a conservative manner as outlined above as any emergency surgery would likely necessitate a colostomy. At the present time the patient is nontoxic-appearing as she is normotensive without tachycardia fever and only has a slight elevation of white blood cell count. Therefore, I feel conservative management is the best initial approach to this problem Additional recommendations be forthcoming based on her clinical course as unfolds History of Present Illness Reason for Consultation: Diverticulitis History of Present Illness This is an 88-year-old female who presented to the emergency department secondary to abdominal pain. Patient notes that her pain began earlier today and is located in her lower abdomen greatest in the left lower quadrant. She denies any nausea or vomiting. She denies any fevers, shakes, or chills. She notes that she has had prior abdominal surgeries in the form of a cholecystectomy and an appendectomy. She says that she does have a history of diverticulitis many years ago and to the best of her knowledge was treated successfully in a conservative fashion. She notes her most recent bowel movement was yesterday. She denies any bright blood per rectum or hematochezia. Since arrival to the emergency department she has had labs and imaging which I independent reviewed. A CT scan of the abdomen pelvis showed that she had sigmoid diverticulitis without any abscess or perforation. There is no free intraperitoneal air or free intraperitoneal free fluid. Labs include a CBC with a white blood cell count had a slight elevation 11.0. Hemoglobin and hematocrit are 11.1 and 33.3. Platelet count was normal. Chemistry profile showed sodium and potassium were normal her BUN and creatinine were 25 and 1.3. Coagulation studies were normal. There is no elevation of her LFTs or lipase. A urinalysis was done indicative of infection. At the time of my interview she was resting comfortably in bed and she was in no distress. Allergies Allergy/AdvReac Type Severity Reaction Status Date / Time ciprofloxacin Allergy Intermediate RASH Verified 10/14/23 21:16 BENEDICT Inhibitors AdvReac Intermediate COUGH Verified 10/14/23 21:16 metformin AdvReac Intermediate GI SYMPTOMS Verified 10/14/23 21:16 Home Medications Medication Instructions Recorded Confirmed Type levothyroxine 75 mcg tablet 75 mcg PO DAILYBB 06/11/18 01/14/24 History aspirin 81 mg tablet,delayed 81 mg PO HS 03/27/19 01/14/24 History release dulaglutide 0.75 mg/0.5 mL 0.75 mg subcut WK 03/27/19 01/14/24 History subcutaneous pen injector (Trulicity) epoetin lou 10,000 unit/mL 10,000 unit subcut MONTHLY PRN 03/27/19 01/14/24 History injection solution (Procrit) WHEN NEEDED oxybutynin chloride 5 mg 5 mg PO HS 03/27/19 01/14/24 History tablet,extended release 24 hr biotin 1 mg capsule 1 mg PO QDL 05/26/22 01/14/24 History nitroglycerin 0.6 mg sublingual 0.6 mg sublingual DIRECTED PRN 05/26/22 01/14/24 History tablet (Nitrostat) Chest Pain patiromer calcium sorbitex 8.4 8.4 g PO Q OTHER DAY 05/26/22 01/14/24 History gram oral powder packet (Veltassa) cholecalciferol (vitamin D3) 25 25 mcg PO QAM 05/22/23 01/14/24 History mcg (1,000 unit) tablet (Vitamin D3) ferrous sulfate 325 mg (65 mg 325 mg PO QDB 05/22/23 01/14/24 History iron) tablet (FeroSul) fluticasone propionate 50 2 spray intranasal DAILY PRN Nasal 05/22/23 01/14/24 History mcg/actuation nasal Congestion spray,suspension nystatin 100,000 unit/gram topical 1 applic topical TID PRN irritation 05/22/23 01/14/24 History powder (Nyamyc) Saccharomyces boulardii 250 mg 250 mg PO DAILY 08/13/23 01/14/24 History capsule (Florastor) psyllium husk 0.4 gram capsule 0.4 g PO Q OTHER DAY 08/13/23 01/14/24 History (Metamucil) Patient History Medical History CKD (chronic kidney disease) Complicated UTI (urinary tract infection) History of ESBL E. coli infection Hypertensive urgency IgM lambda paraproteinemia Surgical History History of gynecologic surgery anterior colporrhaphy History of hysteroscopy Status post tubal ligation History of total bilateral knee replacement (TKR) History of knee surgery History of appendectomy History of dilation and curettage S/P cholecystectomy Family History Mother , 85 Heart disease Diabetes Father , 65 Pancreatic cancer Sister Uterine cancer Breast cancer Denies family history of Ovarian cancer Colorectal cancer Social History Smoking Status: Former smoker Tobacco Type: Cigarettes Second Hand Exposure: No; Do You Dip or Chew Tobacco: No; Hx Alcohol Use: No Hx Substance Use: No Preferred Language: [place] Communication Ability: Effective Inspector And Hand Packager Required: No Beliefs That Will Affect Care: None marital status: Current Living Situation: Spouse Current Living Situation Comment: at home current occupational status: retired Feels Safe at Home: Yes Assistive Devices: Cane, Denture - Upper, Denture - Lower, Glasses and Walker Review of Systems Review of Systems: All systems reviewed & are unremarkable except as noted in HPI & below Physical Exam Constitutional: WD/WN, vitals as above Eyes: Wears glasses ENMT: Ears: no hearing impairment and no external ear abnormality Mouth: no oropharynx abnormality Neck: trachea midline Respiratory: normal respiratory effort; no respiratory distress and no labored breathing Cardiovascular: Rate/Rhythm: regular rate and regular rhythm Gastrointestinal (Abdomen): Abdomen soft and nondistended. It is nonrigid. Patient did have some slight tenderness to palpation in the right lower quadrant and some slightly greater pain to palpation the left lower quadrant. There is no rebound tenderness or guarding. Musculoskeletal: No calf tenderness Skin: no rashes Neurologic: moves all extremities Results & Data Vital Signs (Past 12 Hours) Vital Signs Temp Pulse Pulse Resp BP BP Pulse Ox 01/14/24 22:44 79 14 181/79 H 96 01/14/24 22:03 36.9 C 80 19 172/84 H 98 01/14/24 21:00 77 22 215/87 H 96 01/14/24 19:57 74 22 175/94 H 96 01/14/24 19:19 67 01/14/24 19:14 96 01/14/24 19:14 76 20 184/82 H 96 01/14/24 18:51 36.3 C L 84 18 199/95 H 97 O2 Del Method 01/14/24 22:44 Room Air 01/14/24 22:03 01/14/24 21:00 01/14/24 19:57 Room Air 01/14/24 19:19 01/14/24 19:14 Room Air 01/14/24 19:14 Room Air 01/14/24 18:51 Room Air PG Care Time/CCT Total # of Minutes Spent Total Time Spent with Patient: Total time spent is greater than 50% in coordination of care (as documented) at patient's floor/unit and/or counseling patient: Coding Level of Care Code 44712 INT INP/OBS CARE MIN Diagnoses Diverticulitis of sigmoid colon K57.32
[2024-01-15] MEDS ORDERED: CARBOHYDRATES FOR HYPOGLYCEMIA PO PRN (00:41)
[2024-01-15] MEDS ORDERED: HYDROmorphone INJ 0.5 MG/0.5 ML SYR IV PRN ×2 (00:41)
[2024-01-15] MEDS ORDERED: DEXTROSE 50% 50 ML SYRINGE IV PRN (00:41)
[2024-01-15] MEDS ORDERED: FLUTICASONE PROPIONATE NA SPR 16 GM BTL PRN (00:41)
[2024-01-15] MEDS ORDERED: GLUCAGON FOR INJ 1 MG VIAL SQ PRN (00:41)
[2024-01-15] MEDS ORDERED: GLUCOSE 40% GEL 15 GM TUBE PO PRN (00:41)
[2024-01-15] MEDS ORDERED: NYSTATIN POWDER 15GM BTL EXT PRN (00:41)
[2024-01-15] MEDS ORDERED: GLUCOSE 10 TAB/TUBE PO PRN (00:41)
[2024-01-15] MEDS ORDERED: NITROGLYCERIN SL 0.4 MG/TAB TAB SL PRN (00:41)
[2024-01-15] MEDS: SODIUM CHLORIDE 0.9% 1,000 ML IV SCH (00:56)
[2024-01-15] MEDS: INSULIN ASPART PER UNIT CHARGE SC SCH ×2 (00:58→20:35)
[2024-01-15] MEDS: PIPERACILLIN/TAZOBACTAM 4.5 GM/100 ML BAG IV SCH (04:06)
[2024-01-15] MEDS: LEVOTHYROXINE SODIUM 75 MCG TABLET PO SCH (05:51)
[2024-01-15 06:19] LABS: Basophils # (auto) 0.05 K/uL (0.00-0.20); Basophils % (auto) 0.4 %; Eosinophils # (auto) 0.05 K/uL (0.00-0.50); Eosinophils % (auto) 0.4 %; Hematocrit (blood only) 30.9 % (37.0-47.0); Hemoglobin 10.4 g/dl (12.0-16.0); Immature Granulocytes # (auto) 0.04 K/uL (0.01-0.20); Immature Granulocytes % (auto) 0.3 %; Lymphocytes # (auto) 1.98 K/uL (1.20-3.40); Lymphocytes % (auto) 15.2 %; Mean Corpuscular Hemoglobin 30.1 pg (25.0-34.0); Mean Corpuscular Hgb Conc 33.7 g/dL (32.0-36.0); Mean Corpuscular Volume 89.6 fL (80.0-100.0); Mean Platelet Volume 10.7 fL (9.4-12.4); Monocytes # (auto) 1.21 K/uL (0.11-0.59); Monocytes % (auto) 9.3 %; Neutrophils # (auto) 9.71 K/uL (1.40-6.50); Neutrophils % (auto) 74.4 %; Platelet Count 166 K/uL (130-400); RDW Coefficient of Variation 12.3 % (11.5-14.5); Red Blood Count 3.45 M/uL (4.20-5.40); White Blood Count 13.04 K/ul (4.8-10.8)
[2024-01-15 06:36] LABS: BUN Creatinine Ratio 18.8 (10-20); Calcium 8.6 mg/dl (8.6-10.3); Creatinine Clr Calc Pharmacy 32.5 ml/min; Est GFR (African American) 43.8 ml/min; Est GFR (Non-African American) 37.8 ml/min; Magnesium 1.2 mg/dl (1.7-2.4); Potassium 3.6 mmol/L (3.5-5.1)
[2024-01-15 06:43] LABS: Troponin I High Sensitivity 17.9 pg/ml (0-14)
[2024-01-15 07:15] LABS: Estimated Average Glucose 140 mg/dl; Hemoglobin A1C 6.5 % (4.5-5.6)
[2024-01-15] MEDS: FERROUS SULFATE 325 MG TAB PO SCH (08:21)
[2024-01-15] MEDS: PSYLLIUM or GUAR GUM FIBER 4GM PACKET PO SCH (08:21)
[2024-01-15] MEDS: CHOLECALCIFEROL 25 MCG (1000 UNITS) TAB PO SCH (08:21)
[2024-01-15] MEDS: SACCHAROMYCES BOULARDII 250 MG CAP PO SCH (08:21)
[2024-01-15] MEDS: MAGNESIUM SULFATE / D5W 1 GM/100 ML BAG IV SCH (08:22)
--- NOTE | 2024-01-15 08:54 | Surgery Progress Note ---
Date of Service January 15, 2024 Assessment & Plan (1) Diverticulitis of sigmoid colon: Plan: abd soft TTP, non distended, pt reports abd feeling same as yesterday VSS wbc 13, continue IV antibiotics NPO no acute surgical intervention will follow Admission and Anticipated Discharge Date Admission Date: January 14, 2024 Supervising Physician Co-Signing Physician Notes No plans for any surgical intervention Can trial clear liquids today Will follow Subjective pt reports feeling same as yesterday LLQ TTP denies fevers, N/V, flatus Review of Systems Constitutional: no fever and no chills Respiratory: no dyspnea Cardiovascular: no chest pain Gastrointestinal: + abdominal pain; no nausea and no vomit ing Physical Exam Constitutional: cooperative and comfortable; no acute distress Respiratory: able to speak in complete sentences; no respiratory distress Cardiovascular: Rate/Rhythm: regular rate Gastrointestinal (Abdomen): Inspection/Auscultation: abdomen not distended Percussion/Palpation: + abdomen tender and abdomen soft Results & Data Vital Signs (Past 12 Hours) Vital Signs Temp Pulse Pulse Resp BP Pulse Ox O2 Del Method 01/15/24 07:58 98.2 F 83 18 126/63 95 Room Air 01/15/24 02:45 98.1 F 69 16 139/66 96 Room Air 01/15/24 02:29 Room Air 01/15/24 02:05 63 17 94 01/15/24 01:07 98.2 F 85 18 177/67 H 94 Room Air 01/15/24 00:41 70 01/14/24 22:44 79 14 181/79 H 96 Room Air 01/14/24 22:03 98.5 F 80 19 172/84 H 98 01/14/24 21:00 77 22 215/87 H 96 PG Care Time/CCT Total # of Minutes Spent Total Time Spent with Patient: Total time spent is greater than 50% in coordination of care (as documented) at patient's floor/unit and/or counseling patient: Coding Level of Care Code 77946 SUB INP/OBS CARE 06/01MIN Diagnoses Diverticulitis of sigmoid colon K57.32
--- NOTE | 2024-01-15 10:00 | Hospitalist Progress Note ---
Date of Service January 15, 2024 Assessment & Plan (1) Diverticulitis of sigmoid colon: Plan: 88-year-old female with past medical history significant for type 2 diabetes, diabetic neuropathy, hyperlipidemia, hypothyroidism, obstructive sleep apnea on CPAP, CKD stage IV, hypertension, paroxysmal supraventricular tachycardia, GERD, B12 deficiency, kyphosis, mild dementia, anemia of chronic kidney disease, pernicious anemia, history of COVID, and recent admissions for ESBL UTI presents with abdominal pain in the left lower quadrant region starting today 5/10 in severity. Denies any nausea. Did not move her bowels today. Had normal bowel movements yesterday. Normal micturition as per patient. She is getting chest pains on and off when asked when and how severe she says she do not know. Denies shortness of breath. Denies cough. Afebrile. Denies headache. No runny nose or sore throat. She states that she ambulate without support. Lives with her . Patient blood pressure was running high in the ER. Received a dose of hydralazine. Seems uncomfortable with the pain. Diverticulitis of sigmoid colon No abscess or perforation on CAT scan Started on IV Zosyn N.p.o. ---> per Gen surg can start clears trial today IV fluids IV antiemetics and pain control General surgery consulted, appreciate recs Hypertensive urgency Chest pains on and off Currently not on any medical blood pressure medications Mild elevation of troponins mostly demand ischemia IV labetalol as needed Continue home aspirin Serial cardiac enzymes and echo Telemetry, closely monitor Cardiology was consulted, appreciate recs CKD stage IV Baseline creatinine around 1.4 Presented with creatinine 1.37 Will follow labs Obstructive sleep apnea On CPAP nightly Diabetes On Trulicity Sliding scale Will follow blood sugars and HbA1c levels Anemia of chronic kidney disease Hemoglobin 11.1 We will follow labs Hx of esbl uti UA unremarkable this admission Hypothyroidism On Synthroid Diet: advancing as tolerated DVT prophylaxis: Heparin SQ Disposition: PT/OT once medically stable Admission and Anticipated Discharge Date Admission Date: January 14, 2024 Subjective pt was seen in the AM. States still having abdominal pain. Review of Systems Review of Systems: All systems reviewed & are unremarkable except as noted in Subjective Physical Exam Physical Exam: General: Alert, oriented Psych: Appropriate mood and affect Neuro: No gross deficits HEENT: NC/AT CV: RRR Resp: Breath sounds clear bilaterally, no increased effort of breathing. Abdomen: Soft, tender in lower quadrants Extremities: No edema in lower extremities bilaterally. Results & Data Results & Data Vital Signs (Past 12 Hours) Vital Signs Temp Pulse Pulse Resp BP Pulse Ox O2 Del Method 01/15/24 07:58 36.8 C 83 18 126/63 95 Room Air 01/15/24 02:45 36.7 C 69 16 139/66 96 Room Air 01/15/24 02:29 Room Air 01/15/24 02:05 63 17 94 01/15/24 01:07 36.8 C 85 18 177/67 H 94 Room Air 01/15/24 00:41 70 01/14/24 22:44 79 14 181/79 H 96 Room Air 01/14/24 22:03 36.9 C 80 19 172/84 H 98 Diagnostic Findings Abdomen/Pelvis CT 01/14/24 19:43 Exam(s): CT ABDOMEN + PELVIS Without Contrast EXAM: CT Abdomen and Pelvis Without Intravenous Contrast CLINICAL HISTORY: Left lower quadrant Pain. TECHNIQUE: Axial computed tomography images of the abdomen and pelvis without intravenous contrast. CTDI is 26.49 mGy and DLP is 1240.15 mGy-cm. Automated exposure control was utilized for the study. A dose lowering technique was utilized adhering to the principles of ALARA. COMPARISON: Abdominal ultrasound 10/14/[address] abdomen and pelvis 05/22/2023 FINDINGS: Lung bases: Unremarkable. No mass. No consolidation. ABDOMEN: Liver: Unremarkable. Gallbladder and bile ducts: Cholecystectomy. No ductal dilation. Pancreas: Unremarkable. No ductal dilation. Spleen: Unremarkable. No splenomegaly. Adrenals: Unremarkable. No mass. Kidneys and ureters: Simple appearing bilateral renal cysts are present, no follow up is needed. The kidneys are otherwise unremarkable. No hydronephrosis. Stomach and bowel: Sigmoid diverticulitis. No obstruction. PELVIS: Appendix: No findings to suggest acute appendicitis. Bladder: Unremarkable. No stones. Reproductive: Unremarkable as visualized. ABDOMEN and PELVIS: Intraperitoneal space: Unremarkable. No free air. No significant fluid collection. Bones/joints: There are degenerative changes of the spine. No acute fracture. No dislocation. Soft tissues: Unremarkable. Vasculature: Mild atherosclerosis. No abdominal aortic aneurysm. Lymph nodes: Unremarkable. No enlarged lymph nodes. IMPRESSION: Sigmoid diverticulitis. No abscess or perforation. Electronically signed by: Mallory Padron MD 01/14/24 21:30 PM
--- NOTE | 2024-01-15 10:43 | Cardiology Consultation ---
Date of Consultation January 15, 2024 Assessment & Plan (1) Chest pain: (2) Diverticulitis of sigmoid colon: (3) HTN (hypertension): Plan 88-year-old female admitted with acute abdominal pain and discomfort, CT evidence of sigmoid diverticulitis EKG with chronic strain LVH with strain pattern in the setting of known hypertension and hypertensive urgency on presentation secondary to pain Echocardiogram with hyperdynamic LV function and no wall motion abnormalities. Stress echocardiogram/dobutamine August 2023 without ischemia with similar EKG fine No evidence suggest acute coronary syndrome or cardiac concern Suspect patient will require additional antihypertensive regimen as clinical course progresses Consider holding Veltassa due to GI complaints. No hyperkalemia currently Contact with further question History of Present Illness Reason for Consultation: Chest/abdominal pain Requesting Physician: Lauryn hospitalist Attending Physician: Shirley Polo MD History of Present Illness Patient is an 88-year-old female hospitalized for acute malaise and abdominal pain discomfort. CT diagnosis of sigmoid diverticulitis. Past medical history notable for hypertension, type 2 diabetes mellitus, obstructive sleep apnea, recurrent urinary tract infections with chronic renal insufficiency EKG in past with left ventricular with strain pattern similar to current findings. Dobutamine stress echocardiography and evaluation August 2023 without ischemia Still feels poorly this morning. Abdominal pain left lower quadrant. Diffuse tenderness throughout. Does not recollect chest pain currently denies chest pain tachycardia palpitations dizziness or lightheadedness Remains n.p.o. since admission Allergies Allergy/AdvReac Type Severity Reaction Status Date / Time ciprofloxacin Allergy Intermediate RASH Verified 10/14/23 21:16 BENEDICT Inhibitors AdvReac Intermediate COUGH Verified 10/14/23 21:16 metformin AdvReac Intermediate GI SYMPTOMS Verified 10/14/23 21:16 Home Medications Medication Instructions Recorded Confirmed Type levothyroxine 75 mcg tablet 75 mcg PO DAILYBB 06/11/18 01/14/24 History aspirin 81 mg tablet,delayed 81 mg PO HS 03/27/19 01/14/24 History release dulaglutide 0.75 mg/0.5 mL 0.75 mg subcut WK 03/27/19 01/14/24 History subcutaneous pen injector (Trulicity) epoetin lou 10,000 unit/mL 10,000 unit subcut MONTHLY PRN 03/27/19 01/14/24 History injection solution (Procrit) WHEN NEEDED oxybutynin chloride 5 mg 5 mg PO HS 03/27/19 01/14/24 History tablet,extended release 24 hr biotin 1 mg capsule 1 mg PO QDL 05/26/22 01/14/24 History nitroglycerin 0.6 mg sublingual 0.6 mg sublingual DIRECTED PRN 05/26/22 01/14/24 History tablet (Nitrostat) Chest Pain patiromer calcium sorbitex 8.4 8.4 g PO Q OTHER DAY 05/26/22 01/14/24 History gram oral powder packet (Veltassa) cholecalciferol (vitamin D3) 25 25 mcg PO QAM 05/22/23 01/14/24 History mcg (1,000 unit) tablet (Vitamin D3) ferrous sulfate 325 mg (65 mg 325 mg PO QDB 05/22/23 01/14/24 History iron) tablet (FeroSul) fluticasone propionate 50 2 spray intranasal DAILY PRN Nasal 05/22/23 01/14/24 History mcg/actuation nasal Congestion spray,suspension nystatin 100,000 unit/gram topical 1 applic topical TID PRN irritation 05/22/23 01/14/24 History powder (Nyamyc) Saccharomyces boulardii 250 mg 250 mg PO DAILY 08/13/23 01/14/24 History capsule (Florastor) psyllium husk 0.4 gram capsule 0.4 g PO Q OTHER DAY 08/13/23 01/14/24 History (Metamucil) Patient History Medical History CKD (chronic kidney disease) Complicated UTI (urinary tract infection) History of ESBL E. coli infection Hypertensive urgency IgM lambda paraproteinemia Surgical History History of gynecologic surgery anterior colporrhaphy History of hysteroscopy Status post tubal ligation History of total bilateral knee replacement (TKR) History of knee surgery History of appendectomy History of dilation and curettage S/P cholecystectomy Family History Mother , 85 Heart disease Diabetes Father , 65 Pancreatic cancer Sister Uterine cancer Breast cancer Denies family history of Ovarian cancer Colorectal cancer Social History Smoking Status: Former smoker Tobacco Type: Cigarettes Second Hand Exposure: No; Do You Dip or Chew Tobacco: No; Hx Alcohol Use: No Hx Substance Use: No Preferred Language: Norwegian Communication Ability: Effective Edger Technician Required: No Beliefs That Will Affect Care: None marital status: Current Living Situation: Spouse Current Living Situation Comment: at home current occupational status: retired Other Information That Helps Us Care for You: No Feels Safe at Home: Yes Safety Concerns: Feels Safe At This Time Assistive Devices: CPAP, Denture - Upper, Denture - Lower and Glasses Review of Systems Review of Systems: All systems reviewed & are unremarkable except as noted in HPI & below Physical Exam Constitutional: + ill appearing and average body habitus Eyes: PERRL, conjunctivae normal, anicteric sclerae ENMT: external ear and nose normal, oropharynx normal Neck: trachea midline, no thyromegaly Respiratory: normal respiratory effort, lungs clear to auscultation Cardiovascular: Rate/Rhythm: regular rate and regular rhythm Heart Sounds: normal S1, normal S2 and + murmur (Grade 1/6 systolic murmur) Vessels: no JVD Extremities: no edema Gastrointestinal (Abdomen): Percussion/Palpation: + abdomen tender and + guarding (Left lower quadrant and midline) Musculoskeletal: no cyanosis or clubbing, extremities motor strength 5/5 Results & Data Vital Signs (Past 12 Hours) Vital Signs Temp Pulse Pulse Resp BP Pulse Ox O2 Del Method 01/15/24 07:58 36.8 C 83 18 126/63 95 Room Air 01/15/24 02:45 36.7 C 69 16 139/66 96 Room Air 01/15/24 02:29 Room Air 01/15/24 02:05 63 17 94 01/15/24 01:07 36.8 C 85 18 177/67 H 94 Room Air 01/15/24 00:41 70 01/14/24 22:44 79 14 181/79 H 96 Room Air Laboratory Results Echocardiogram 01/15/2024 Moderate left ventricular hypertrophy with hyperdynamic LV function EF greater than 70% aortic sclerosis without stenosis. No wall motion abnormality Diagnostic Findings Laboratory Results - last 24 hr 01/14/24 01/14/24 01/15/24 19:12 20:33 00:44 WBC 11.03 H RBC 3.68 L Hgb 11.1 L Hct 33.3 L MCV 90.5 MCH 30.2 MCHC 33.3 RDW Std Deviation 40.2 RDW Coeff of Elpidio 12.2 Plt Count 184 MPV 10.7 Immature Gran % (Auto) 0.2 Neut % (Auto) 68.2 Lymph % (Auto) 21.8 [place] % (Auto) 6.9 Eos % (Auto) 2.4 Baso % (Auto) 0.5 Neut # (Auto) 7.51 H Lymph # (Auto) 2.41 [place] # (Auto) 0.76 H Eos # (Auto) 0.27 Baso # (Auto) 0.06 Immature Gran # (Auto) 0.02 PT 10.5 INR 1.0 Sodium 140 Potassium 3.7 Chloride 104 Carbon Dioxide 28 Anion Gap 8 BUN 25 H Creatinine 1.37 H Est Cr Clr Drug Dosing 30.3 Est GFR ( Amer) 40.4 Est GFR (Non-Af Amer) 34.8 BUN/Creatinine Ratio 18.2 Glucose 214 H POC Glucose 198 H Estimat Average Glucose Hemoglobin A1c Lactate 1.0 Calcium 9.2 Magnesium Total Bilirubin 0.6 AST 30 ALT 36 Alkaline Phosphatase 51 Troponin I High Sens 14.5 H 14.9 H Total Protein 6.7 Albumin 4.0 Globulin 2.7 Albumin/Globulin Ratio 1.5 Lipase 36 Urine Color Yellow Urine Appearance Clear Urine pH 5.5 Ur Specific Satin 1.017 Urine Protein 3+ H Urine Glucose (UA) Negative Urine Ketones Negative Urine Blood Negative Urine Nitrite Negative Urine Bilirubin Negative Urine Urobilinogen Negative Ur Leukocyte Esterase Negative Urine WBC (Auto) 6-10 H Urine RBC (Auto) 0-2 U Hyaline Cast (Auto) 0-2 U Epithel Cells (Auto) 0-2 Urine Bacteria (Auto) None Seen 01/15/24 01/15/24 05:48 05:53 WBC 13.04 H RBC 3.45 L Hgb 10.4 L Hct 30.9 L MCV 89.6 MCH 30.1 MCHC 33.7 RDW Std Deviation 40.0 RDW Coeff of Elpidio 12.3 Plt Count 166 MPV 10.7 Immature Gran % (Auto) 0.3 Neut % (Auto) 74.4 Lymph % (Auto) 15.2 [place] % (Auto) 9.3 Eos % (Auto) 0.4 Baso % (Auto) 0.4 Neut # (Auto) 9.71 H Lymph # (Auto) 1.98 [place] # (Auto) 1.21 H Eos # (Auto) 0.05 Baso # (Auto) 0.05 Immature Gran # (Auto) 0.04 PT INR Sodium 141 Potassium 3.6 Chloride 107 Carbon Dioxide 26 Anion Gap 8 BUN 24 H Creatinine 1.28 H Est Cr Clr Drug Dosing 32.5 Est GFR ( Amer) 43.8 Est GFR (Non-Af Amer) 37.8 BUN/Creatinine Ratio 18.8 Glucose 158 H POC Glucose 160 H Estimat Average Glucose 140 Hemoglobin A1c 6.5 H Lactate Calcium 8.6 Magnesium 1.2 L Total Bilirubin AST ALT Alkaline Phosphatase Troponin I High Sens 17.9 H Total Protein Albumin Globulin Albumin/Globulin Ratio Lipase Urine Color Urine Appearance Urine pH Ur Specific Satin Urine Protein Urine Glucose (UA) Urine Ketones Urine Blood Urine Nitrite Urine Bilirubin Urine Urobilinogen Ur Leukocyte Esterase Urine WBC (Auto) Urine RBC (Auto) U Hyaline Cast (Auto) U Epithel Cells (Auto) Urine Bacteria (Auto)
[2024-01-15] MEDS: ACETAMINOPHEN 325 MG TAB PO PRN (11:52)
--- NOTE | 2024-01-15 12:56 | Electrocardiogram Report ---
Test Reason : Blood Pressure : */* mmHG Vent. Rate : 79 BPM Atrial Rate : 79 BPM P-R Int : 154 ms QRS Dur : 90 ms QT Int : 392 ms P-R-T Axes : 34 20 183 degrees QTcB Int : 449 ms Normal sinus rhythm Abnormal ECG When compared with ECG of 07-Dec-2023 10:36, Premature supraventricular complexes are no longer Present Confirmed by Gómez Victoria ([id number]) on 01/15/2024 12:56:15 PM Referred By: REFERRED SELF Confirmed By: Gómez Victoria
--- NOTE | 2024-01-15 13:04 | Electrocardiogram Report ---
Test Reason : Blood Pressure : */* mmHG Vent. Rate : 75 BPM Atrial Rate : 75 BPM P-R Int : 138 ms QRS Dur : 88 ms QT Int : 358 ms P-R-T Axes : 39 19 130 degrees QTcB Int : 399 ms Normal sinus rhythm with sinus arrhythmia Abnormal ECG When compared with ECG of 14-Jan-2024 20:27, (unconfirmed) No significant change was found Confirmed by Gómez Victoria ([id number]) on 01/15/2024 1:04:28 PM Referred By: REFERRED SELF Confirmed By: Gómez Victoria
[2024-01-15] MEDS: ALBUT/IPRATROP 3MG/0.5MG NEB 3 ML VIAL NEB PRN (14:00)
[2024-01-15] MEDS: ASPIRIN 81 MG ECTAB PO SCH (20:45)
[2024-01-15] MEDS: OXYBUTYNIN CHLORIDE XL 5 MG TABCR PO SCH (20:45)
[2024-01-15] MEDS: HEPARIN SOD 5,000 UNIT/0.5 ML VIAL SQ SCH (20:45)
[2024-01-16 07:38] LABS: Basophils # (auto) 0.06 K/uL (0.00-0.20); Basophils % (auto) 0.8 %; Eosinophils # (auto) 0.29 K/uL (0.00-0.50); Eosinophils % (auto) 3.9 %; Hemoglobin 9.4 g/dl (12.0-16.0); Immature Granulocytes # (auto) 0.02 K/uL (0.01-0.20); Immature Granulocytes % (auto) 0.3 %; Lymphocytes # (auto) 1.68 K/uL (1.20-3.40); Lymphocytes % (auto) 22.8 %; Mean Corpuscular Hemoglobin 30.1 pg (25.0-34.0); Mean Corpuscular Hgb Conc 33.6 g/dL (32.0-36.0); Mean Corpuscular Volume 89.7 fL (80.0-100.0); Mean Platelet Volume 11.1 fL (9.4-12.4); Monocytes # (auto) 0.79 K/uL (0.11-0.59); Monocytes % (auto) 10.7 %; Neutrophils # (auto) 4.52 K/uL (1.40-6.50); Neutrophils % (auto) 61.5 %; Platelet Count 148 K/uL (130-400); RDW Coefficient of Variation 12.7 % (11.5-14.5); RDW Standard Deviation 41.6 fL (36.4-46.3); Red Blood Count 3.12 M/uL (4.20-5.40); White Blood Count 7.36 K/ul (4.8-10.8)
[2024-01-16 08:05] LABS: Bilirubin,Total 1.3 mg/dl (0.2-1.0)
[2024-01-16 08:06] LABS: Albumin Globulin Ratio 1.4 (0.9-2); Albumin Level 3.2 gm/dl (3.4-5.0); BUN Creatinine Ratio 10.3 (10-20); Calcium 8.1 mg/dl (8.6-10.3); Creatinine Clr Calc Pharmacy 26.9 ml/min; Est GFR (African American) 34.8 ml/min; Globulin 2.3 gm/dl (2.5-4.0); Magnesium 1.9 mg/dl (1.7-2.4); Phosphorus 2.9 mg/dl (2.5-4.9); Total Protein 5.5 gm/dl (6.0-8.3)
--- NOTE | 2024-01-16 09:54 | Surgery Progress Note ---
Date of Service January 16, 2024 Assessment & Plan (1) Diverticulitis of sigmoid colon: Plan: She is improved with less abdominal pain Trial clear liquids Keep on IV antibiotics today, white blood cell count decreased Can slowly advance as tolerated with tentative discharge tomorrow Admission and Anticipated Discharge Date Admission Date: January 14, 2024 Subjective Patient seen and examined. Pains improved. Afebrile. No nausea or vomiting. Review of Systems Constitutional: no fever and no chills Gastrointestinal: no abdominal pain, no nausea and no vomiting Genitourinary: no dysuria and no nocturia Integumentary: no acne, no skin ulcer and no sores Neurologic: no gait abnormality and no headache(s) Psychiatric: no behavioral changes and no depression Physical Exam Constitutional: WD/WN, vitals as above Eyes: PERRL, conjunctivae normal, anicteric sclerae ENMT: external ear and nose normal, oropharynx normal Gastrointestinal (Abdomen): Inspection/Auscultation: abdomen normal to inspection; abdomen not distended Percussion/Palpation: abdomen soft; abdomen nontender and no guarding Skin: no rashes, warm and dry Psychiatric: A+Ox3, euthymic affect Results & Data Vital Signs (Past 12 Hours) Vital Signs Temp Pulse Pulse Resp BP Pulse Ox O2 Del Method 01/16/24 08:00 36.8 C 65 18 151/77 H 94 Room Air 01/16/24 02:50 36.6 C 61 21 147/71 H 97 CPAP 01/16/24 00:05 88 01/15/24 23:02 73 21 168/71 H 99 CPAP PG Care Time/CCT Total # of Minutes Spent Total Time Spent with Patient: Total time spent is greater than 50% in coordination of care (as documented) at patient's floor/unit and/or counseling patient: Coding Level of Care Code 10183 SUB INP/OBS CARE Diagnoses Diverticulitis of sigmoid colon K57.32
--- NOTE | 2024-01-16 11:57 | Electrocardiogram Report ---
Test Reason : Blood Pressure : */* mmHG Vent. Rate : 61 BPM Atrial Rate : 61 BPM P-R Int : 148 ms QRS Dur : 86 ms QT Int : 420 ms P-R-T Axes : 35 18 193 degrees QTcB Int : 422 ms Normal sinus rhythm with sinus arrhythmia Abnormal ECG When compared with ECG of 15-Jan-2024 06:04, Inverted T waves have replaced nonspecific T wave abnormality in Inferior leads Confirmed by Gómez Victoria ([id number]) on 01/16/2024 11:57:40 AM Referred By: REFERRED SELF Confirmed By: Gómez Victoria
[2024-01-16] MEDS: PATIROMER CALCIUM SORBITEX 8.4 GM PACK PO SCH (13:26)
--- NOTE | 2024-01-16 14:34 | Hospitalist Progress Note ---
Date of Service January 16, 2024 Assessment & Plan (1) Diverticulitis of sigmoid colon: Plan: 88-year-old female with past medical history significant for type 2 diabetes, diabetic neuropathy, hyperlipidemia, hypothyroidism, obstructive sleep apnea on CPAP, CKD stage IV, hypertension, paroxysmal supraventricular tachycardia, GERD, B12 deficiency, kyphosis, mild dementia, anemia of chronic kidney disease, pernicious anemia, history of COVID, and recent admissions for ESBL UTI presents with abdominal pain in the left lower quadrant region starting today 5/10 in severity. Denies any nausea. Did not move her bowels today. Had normal bowel movements yesterday. Normal micturition as per patient. She is getting chest pains on and off when asked when and how severe she says she do not know. Denies shortness of breath. Denies cough. Afebrile. Denies headache. No runny nose or sore throat. She states that she ambulate without support. Lives with her . Patient blood pressure was running high in the ER. Received a dose of hydralazine. Seems uncomfortable with the pain. Diverticulitis of sigmoid colon No abscess or perforation on CAT scan Started on IV Zosyn N.p.o. ---> per Gen surg can start clears trial--> transitioned to full liquids today IV fluids IV antiemetics and pain control General surgery consulted, appreciate recs Hypertensive urgency Chest pains on and off Currently not on any medical blood pressure medications Mild elevation of troponins mostly demand ischemia IV labetalol as needed Continue home aspirin Serial cardiac enzymes and echo Telemetry, closely monitor Cardiology was consulted, appreciate recs CKD stage IV Baseline creatinine around 1.4 Presented with creatinine 1.37 Will follow labs Obstructive sleep apnea On CPAP nightly Diabetes On Trulicity Sliding scale Will follow blood sugars and HbA1c levels Anemia of chronic kidney disease Hemoglobin 11.1 We will follow labs Hx of esbl uti UA unremarkable this admission Hypothyroidism On Synthroid Diet: advancing as tolerated DVT prophylaxis: Heparin SQ Disposition: PT/OT once medically stable Admission and Anticipated Discharge Date Admission Date: January 14, 2024 Subjective Pt was seen in AM. Resting comfortably in bed reading a newspaper. notes abd pain improving. Agreeable to advancement of diet to full liquids today. Review of Systems Review of Systems: All systems reviewed & are unremarkable except as noted in Subjective Physical Exam Physical Exam: General: Alert, oriented Psych: Appropriate mood and affect Neuro: No gross deficits HEENT: NC/AT CV: RRR Resp: Breath sounds clear bilaterally, no increased effort of breathing. Abdomen: Soft, tender in lower quadrants Extremities: No edema in lower extremities bilaterally. Results & Data Results & Data Vital Signs (Past 12 Hours) Vital Signs Temp Pulse Resp BP Pulse Ox O2 Del Method 01/16/24 12:22 36.8 C 61 18 172/77 H 95 Room Air 01/16/24 08:00 36.8 C 65 18 151/77 H 94 Room Air 01/16/24 02:50 36.6 C 61 21 147/71 H 97 CPAP
[2024-01-17 03:46] VITALS: O2SAT 96
[2024-01-17 05:55] LABS: Basophils # (auto) 0.07 K/uL (0.00-0.20); Basophils % (auto) 1.1 %; Eosinophils % (auto) 7.9 %; Hematocrit (blood only) 26.2 % (37.0-47.0); Hemoglobin 8.7 g/dl (12.0-16.0); Lymphocytes # (auto) 2.07 K/uL (1.20-3.40); Lymphocytes % (auto) 32.6 %; Mean Corpuscular Hemoglobin 30.1 pg (25.0-34.0); Mean Corpuscular Hgb Conc 33.2 g/dL (32.0-36.0); Mean Corpuscular Volume 90.7 fL (80.0-100.0); Mean Platelet Volume 10.8 fL (9.4-12.4); Monocytes # (auto) 0.74 K/uL (0.11-0.59); Monocytes % (auto) 11.7 %; Neutrophils # (auto) 2.96 K/uL (1.40-6.50); Neutrophils % (auto) 46.7 %; Platelet Count 137 K/uL (130-400); RDW Coefficient of Variation 12.5 % (11.5-14.5); RDW Standard Deviation 41.1 fL (36.4-46.3); Red Blood Count 2.89 M/uL (4.20-5.40); White Blood Count 6.34 K/ul (4.8-10.8)
[2024-01-17 06:36] LABS: Albumin Globulin Ratio 1.3 (0.9-2); Albumin Level 3.1 gm/dl (3.4-5.0); BUN Creatinine Ratio 7.4 (10-20); Bilirubin,Total 0.8 mg/dl (0.2-1.0); Calcium 8.2 mg/dl (8.6-10.3); Creatinine Clr Calc Pharmacy 28.3 ml/min; Est GFR (African American) 36.5 ml/min; Est GFR (Non-African American) 31.5 ml/min; Globulin 2.3 gm/dl (2.5-4.0); Magnesium 1.7 mg/dl (1.7-2.4); Phosphorus 2.4 mg/dl (2.5-4.9); Potassium 3.6 mmol/L (3.5-5.1); Total Protein 5.4 gm/dl (6.0-8.3)
[2024-01-17] MEDS ORDERED: SODIUM PHOSPHATE 3 MMOL/1 ML INFUSION IV STA (08:10)
[2024-01-17] MEDS: SODIUM PHOSPHATE 21 MMOL in SODIUM CHLORIDE 0.9% 500 ML IV ONE (08:48)
--- NOTE | 2024-01-17 09:55 | Surgery Progress Note ---
Date of Service January 17, 2024 Assessment & Plan (1) Diverticulitis of sigmoid colon: Plan: She is tolerating full liquids without abdominal pain Advance her diet to low fiber Would give her 2 weeks of oral antibiotics upon discharge Surgical sign off at this time, please call with any questions or concerns Admission and Anticipated Discharge Date Admission Date: January 14, 2024 Subjective Patient seen and examined. She is tolerating full liquids. Afebrile. Denies abdominal pain. Review of Systems Constitutional: no fever and no chills Eyes: no blind spots and no dry eyes Ear, Nose, Mouth, Throat: no ear pain and no tinnitus Respiratory: no cough and no dyspnea Cardiovascular: no chest pain Gastrointestinal: no abdominal pain, no nausea and no vomiting Genitourinary: no dysuria and no urinary urgency Integumentary: no acne, no changing lesions and no sores Neurologic: no gait abnormality and no headache(s) Psychiatric: no behavioral changes and no depression Physical Exam Constitutional: WD/WN, vitals as above Eyes: PERRL, conjunctivae normal, anicteric sclerae ENMT: external ear and nose normal, oropharynx normal Gastrointestinal (Abdomen): Inspection/Auscultation: abdomen normal to inspection; abdomen not distended Percussion/Palpation: abdomen soft; abdomen nontender and no guarding Skin: no rashes, warm and dry Psychiatric: A+Ox3, euthymic affect Results & Data Vital Signs (Past 12 Hours) Vital Signs Temp Pulse Pulse Resp BP Pulse Ox O2 Del Method 01/17/24 07:24 36.4 C L 60 17 161/74 H 96 Room Air 01/17/24 02:57 36.5 C 55 L 18 154/72 H 96 Room Air 01/16/24 23:33 81 01/16/24 23:08 36.5 C 58 L 18 179/73 H 95 Room Air, BiPAP PG Care Time/CCT Total # of Minutes Spent Total Time Spent with Patient: Total time spent is greater than 50% in coordination of care (as documented) at patient's floor/unit and/or counseling patient: Coding Level of Care Code 34263 SUB INP/OBS CARE Diagnoses Diverticulitis of sigmoid colon K57.32
[2024-01-17 11:24] VITALS: TEMP 97.9
[2024-01-17 15:32] LABS: Hemoglobin 9.2 g/dl (12.0-16.0)
[2024-01-17 15:52] VITALS: BP 179/75; PULSE 66; RESP 17
--- NOTE | 2024-01-17 18:01 | Discharge Summary ---
Discharge Summary Date of Service January 17, 2024 Principal Dx & Hospital Course #1 = Principal Diagnosis (1) Diverticulitis of sigmoid colon: 88-year-old female with past medical history significant for type 2 diabetes, diabetic neuropathy, hyperlipidemia, hypothyroidism, obstructive sleep apnea on CPAP, CKD stage IV, hypertension, paroxysmal supraventricular tachycardia, GERD, B12 deficiency, kyphosis, mild dementia, anemia of chronic kidney disease, pernicious anemia, history of COVID, and recent admissions for ESBL UTI presents with abdominal pain in the left lower quadrant region starting today 5/10 in severity. Patient improved with conservative management. Surgery signed off. On day of discharge, patient ambulating in room at baseline, passing stool, and eating well without pain. Diverticulitis of sigmoid colon No abscess or perforation on CAT scan s/p IVF and zosyn Discharged on 10 days renally dosed augmentin for total 14 days of abx Hypertensive urgency Chest pains on and off Currently not on any medical blood pressure medications Mild elevation of troponins mostly demand ischemia IV labetalol as needed resolved CKD stage IV Baseline creatinine around 1.4 Presented with creatinine 1.37 Will follow labs Obstructive sleep apnea On CPAP nightly Diabetes On Trulicity resume Anemia of chronic kidney disease Hemoglobin 11.1 We will follow labs Hx of esbl uti UA unremarkable this admission Hypothyroidism On Synthroid Notes For Next Care Provider Medication Changes From Visit Augmentin 500mg q8h renally dosed for diverticulitis Admission HPI Per Admitting Provider 88-year-old female with past medical history significant for type 2 diabetes, diabetic neuropathy, hyperlipidemia, hypothyroidism, obstructive sleep apnea on CPAP, CKD stage IV, hypertension, paroxysmal supraventricular tachycardia, GERD, B12 deficiency, kyphosis, mild dementia, anemia of chronic kidney disease, pernicious anemia, history of COVID, and recent admissions for ESBL UTI presents with abdominal pain in the left lower quadrant region starting today 5/10 in severity. Denies any nausea. Did not move her bowels today. Had normal bowel movements yesterday. Normal micturition as per patient. She is getting chest pains on and off and when asked when and how severe she says she do not know. Denies shortness of breath. Denies cough. Afebrile. Denies headache. No runny nose or sore throat. She states that she ambulate without support. Lives with her . Patient blood pressure was running high in the ER. Received a dose of hydralazine. Seems uncomfortable with the pain. Past medical history. As mentioned above Past surgical history. Bilateral knee arthroplasty. Colonoscopy. Colonoscopy biopsy. Dilatation and curettage. EGD. EGD with biopsy. Appendectomy .cholecystectomy. Social history. . Quit smoking 1979. No alcohol use. No drug use. Family history. Mother had Alzheimer's disease. Father had pancreatic cancer. Brother had throat cancer. Sister had breast cancer Admission Exam Per Admitting Provider General- Not in acute distress Head- atraumatic Eyes- PERRL. ENT- oropharynx clear Neck- supple, no JVD. Lungs- clear to auscultation no wheezing or crackles. Heart- regular rate and rhythm; no murmur, no gallop. Abdomen- normal bowel sounds, soft, LLQ tenderness present, No distension Extremities- no pretibial edema, no erythema seen Neuro- alert, oriented PERRL, no facial palsy; no dysarthria; moves extremities Discharge Exam Constitutional WD/WN, vitals as above Respiratory normal respiratory effort, lungs clear to auscultation Cardiovascular RRR, no murmur, no edema Gastrointestinal (Abdomen) normal bowel sounds, soft, nontender, no hepatosplenomegaly Updated Medication List Medication Instructions Recorded Confirmed Type levothyroxine 75 mcg tablet 75 mcg PO DAILYBB 06/11/18 01/14/24 History aspirin 81 mg tablet,delayed 81 mg PO HS 03/27/19 01/14/24 History release dulaglutide 0.75 mg/0.5 mL 0.75 mg subcut WK 03/27/19 01/14/24 History subcutaneous pen injector (Trulicity) epoetin lou 10,000 unit/mL 10,000 unit subcut MONTHLY PRN 03/27/19 01/14/24 History injection solution (Procrit) WHEN NEEDED oxybutynin chloride 5 mg 5 mg PO HS 03/27/19 01/14/24 History tablet,extended release 24 hr biotin 1 mg capsule 1 mg PO QDL 05/26/22 01/14/24 History nitroglycerin 0.6 mg sublingual 0.6 mg sublingual DIRECTED PRN 05/26/22 01/14/24 History tablet (Nitrostat) Chest Pain patiromer calcium sorbitex 8.4 8.4 g PO Q OTHER DAY 05/26/22 01/14/24 History gram oral powder packet (Veltassa) cholecalciferol (vitamin D3) 25 25 mcg PO QAM 05/22/23 01/14/24 History mcg (1,000 unit) tablet (Vitamin D3) ferrous sulfate 325 mg (65 mg 325 mg PO QDB 05/22/23 01/14/24 History iron) tablet (FeroSul) fluticasone propionate 50 2 spray intranasal DAILY PRN Nasal 05/22/23 01/14/24 History mcg/actuation nasal Congestion spray,suspension nystatin 100,000 unit/gram topical 1 applic topical TID PRN irritation 05/22/23 01/14/24 History powder (Nyamyc) Saccharomyces boulardii 250 mg 250 mg PO DAILY 08/13/23 01/14/24 History capsule (Florastor) psyllium husk 0.4 gram capsule 0.4 g PO Q OTHER DAY 08/13/23 01/14/24 History (Metamucil) amoxicillin 500 mg-potassium 1 tab PO Q8H #30 tabs 01/17/24 Rx clavulanate 125 mg tablet Hospital Stay Data Consultations 01/14/24 22:32 ED Decision to Admit Stat 01/15/24 08:00 Consult Cardiology Routine Consult General Surgery Routine Diagnostic Imagining Performed 01/14/24 19:43 CT Abd and Pelvis [CT abd pelvis wo con] Stat Pending Results Patient Have Any Pending Studies at Discharge: No Discharge Instructions Given to Patient (Per Discharging Provider) You were admitted for abdominal pain and found to have acute diverticulitis. You were evaluated by surgery and no surgical intervention necessary. You will meed to continue a course of antibiotics. You will complete ten more days with the following -Augmentin 500mg three times a day, your next dose is this evening Please take with milk or food. Total Time Total Time Spent Total Time Spent (In Minutes): 45
== END 2024-01-17 18:27 | disposition home or self-care (01) | DRG 392 ==
LOC: ED 18:49 → SUATTDRO 23:06 → 4W 23:06
DX: E03.9 Hypothyroidism, unspecified; D63.1 Anemia in chronic kidney disease; E78.5 Hyperlipidemia, unspecified; Z90.49 Acquired absence of other specified parts of digestive tract; Z87.891 Personal history of nicotine dependence; I24.89 Other forms of acute ischemic heart disease; Z88.8 Allergy status to other drugs, medicaments and biological substances; Z87.440 Personal history of urinary (tract) infections; I12.9 Hypertensive chronic kidney disease with stage 1 through stage 4 chronic kidney disease, or unspecified chronic kidney disease; Z79.85 Long-term (current) use of injectable non-insulin antidiabetic drugs; K21.9 Gastro-esophageal reflux disease without esophagitis; Z99.89 Dependence on other enabling machines and devices; Z79.82 Long term (current) use of aspirin; E11.22 Type 2 diabetes mellitus with diabetic chronic kidney disease; Z83.3 Family history of diabetes mellitus; F03.A0 Unspecified dementia, mild, without behavioral disturbance, psychotic disturbance, mood disturbance, and anxiety; E11.40 Type 2 diabetes mellitus with diabetic neuropathy, unspecified; M40.209 Unspecified kyphosis, site unspecified; N18.4 Chronic kidney disease, stage 4 (severe); Z79.899 Other long term (current) drug therapy; G47.33 Obstructive sleep apnea (adult) (pediatric); K57.32 Diverticulitis of large intestine without perforation or abscess without bleeding; I16.0 Hypertensive urgency; D51.0 Vitamin B12 deficiency anemia due to intrinsic factor deficiency; Z88.1 Allergy status to other antibiotic agents; Z86.16 Personal history of COVID-19; I47.10 Supraventricular tachycardia, unspecified; R07.9 Chest pain, unspecified; Z79.890 Hormone replacement therapy

== ENCOUNTER 2024-02-21 16:27 | Inpatient (IN) ==
[2024-02-21 16:57] LABS: Basophils # (auto) 0.06 K/uL (0.00-0.20); Basophils % (auto) 0.7 %; Eosinophils % (auto) 3.4 %; Hematocrit (blood only) 34.1 % (37.0-47.0); Hemoglobin 11.3 g/dl (12.0-16.0); Immature Granulocytes # (auto) 0.01 K/uL (0.01-0.20); Immature Granulocytes % (auto) 0.1 %; Lymphocytes % (auto) 30.5 %; Mean Corpuscular Hemoglobin 29.8 pg (25.0-34.0); Mean Corpuscular Hgb Conc 33.1 g/dL (32.0-36.0); Mean Platelet Volume 10.8 fL (9.4-12.4); Monocytes # (auto) 0.69 K/uL (0.11-0.59); Monocytes % (auto) 7.8 %; Neutrophils % (auto) 57.5 %; Platelet Count 192 K/uL (130-400); RDW Coefficient of Variation 12.3 % (11.5-14.5); RDW Standard Deviation 40.9 fL (36.4-46.3); Red Blood Count 3.79 M/uL (4.20-5.40); White Blood Count 8.86 K/ul (4.8-10.8)
[2024-02-21 17:13] LABS: Albumin Globulin Ratio 1.3 (0.9-2); BUN Creatinine Ratio 22.1 (10-20); Bilirubin,Total 0.8 mg/dl (0.2-1.0); Calcium 10.2 mg/dl (8.6-10.3); Creatinine Clr Calc Pharmacy 29.4 ml/min; Globulin 3.1 gm/dl (2.5-4.0); Potassium 4.1 mmol/L (3.5-5.1); Total Protein 7.1 gm/dl (6.0-8.3)
[2024-02-21 17:42] LABS: Adenovirus PCR Not Detected (NotDetected); Bordetella parapertussis PCR Not Detected (NotDetected); Bordetella pertussis PCR Not Detected (NotDetected); Chlamydia pneumoniae PCR Not Detected (NotDetected); Coronavirus 229E PCR Not Detected (NotDetected); Coronavirus CoV-2 (COVID19)PCR Not Detected (NotDetected); Coronavirus HKU1 PCR Not Detected (NotDetected); Coronavirus NL63 PCR Not Detected (NotDetected); Coronavirus OC43PCR Not Detected (NotDetected); Human Metapneumovirus PCR Not Detected (NotDetected); Influenza A PCR Not Detected (NotDetected); Influenza B PCR Not Detected (NotDetected); Mycoplasma pneumoniae PCR Not Detected (NotDetected); Parainfluenza Virus 1 PCR Not Detected (NotDetected); Parainfluenza Virus 2 PCR Not Detected (NotDetected); Parainfluenza Virus 3 PCR Not Detected (NotDetected); Parainfluenza Virus 4 PCR Not Detected (NotDetected); Respiratory Syncytial VirusPCR Not Detected (NotDetected); Rhinovirus/Enterovirus PCR Not Detected (NotDetected)
--- NOTE | 2024-02-21 18:15 | XRay Report ---
XR chest 1V portable HISTORY: 88 years-old Female weakness COMPARISON: 10/14/2023 TECHNIQUE: AP view the chest FINDINGS: Cardiac silhouette is upper limits of normal in size. No pneumothorax, large pleural effusion or over t pulmonary edema. There is unchanged blunting of the costophrenic angles with bibasilar atelectasis versus scarring. Healed chronic right proximal humeral fracture deformity. IMPRESSION: Cardiomegaly without acute process. ACT 112: Negative or not required by law. The above report was generated using voice recognition software. It may contain grammatical, syntax o r spelling errors. Electronically signed by: Grupo Wood M.D. 02/21/2024 6:14 PM
[2024-02-21] MEDS: OPTIRAY 320 100ml IV ONE (19:29)
--- NOTE | 2024-02-21 19:35 | Emergency Department Note ---
History of Present Illness General Chief complaint: Illness Stated complaint: RASH LOWER ABD, UNSTABLE ON FEET Time Seen by Provider: 02/21/24 17:59 Source: patient and family (Patient son at bedside) History of Present Illness Provider complaint: Weakness off balance 88-year-old female presents emergency department for weakness off balance. Son reports that this has been going on for the last 4 days. Patient also reports that she has a rash over her left inguinal area. No fevers. No abdominal pain. No chest pain difficulty breathing or headache. No hematuria or dysuria. Home Medications Medication Instructions Recorded Confirmed Type levothyroxine 75 mcg tablet 75 mcg PO DAILYBB 06/11/18 02/21/24 History aspirin 81 mg tablet,delayed 81 mg PO HS 03/27/19 02/21/24 History release dulaglutide 0.75 mg/0.5 mL 0.75 mg subcut WK 03/27/19 02/21/24 History subcutaneous pen injector (Trulicity) epoetin lou 10,000 unit/mL 10,000 unit subcut MONTHLY PRN 03/27/19 02/21/24 History injection solution (Procrit) WHEN NEEDED oxybutynin chloride 5 mg 5 mg PO HS 03/27/19 02/21/24 History tablet,extended release 24 hr biotin 1 mg capsule 1 mg PO QDL 05/26/22 02/21/24 History nitroglycerin 0.6 mg sublingual 0.6 mg sublingual DIRECTED PRN 05/26/22 02/21/24 History tablet (Nitrostat) Chest Pain patiromer calcium sorbitex 8.4 8.4 g PO .EVERY OTHER NIGHT 05/26/22 02/21/24 History gram oral powder packet (Veltassa) cholecalciferol (vitamin D3) 25 25 mcg PO QAM 05/22/23 02/21/24 History mcg (1,000 unit) tablet (Vitamin D3) nystatin 100,000 unit/gram topical 1 applic topical TID PRN irritation 05/22/23 02/21/24 History powder (Nyamyc) Saccharomyces boulardii 250 mg 250 mg PO DAILY 08/13/23 02/21/24 History capsule (Florastor) psyllium husk 0.4 gram capsule 0.4 g PO .EVERY OTHER NIGHT 08/13/23 02/21/24 History (Metamucil) amlodipine 2.5 mg tablet 2.5 mg PO DAILY 02/21/24 02/21/24 History estradiol 0.01% (0.1 mg/gram) 1 applic vaginal UD 02/21/24 02/21/24 History vaginal cream losartan 25 mg tablet 25 mg PO DAILY 02/21/24 02/21/24 History ondansetron 4 mg disintegrating 4 mg PO Q8 PRN Nausea And Vomiting 02/21/24 02/21/24 History tablet Allergies Allergy/AdvReac Type Severity Reaction Status Date / Time corn Allergy Severe Diarrhea Unverified 01/27/24 13:47 ciprofloxacin Allergy Intermediate RASH Verified 01/27/24 13:47 BENEDICT Inhibitors AdvReac Intermediate COUGH Verified 01/27/24 13:47 metformin AdvReac Intermediate GI SYMPTOMS Verified 01/27/24 13:47 Past Med/Surg History Problem List (Updated 02/21/24 @ 22:37 by Josiah Restrepo MD) Hypomagnesemia (Acute) Diverticulitis (Acute) Diverticulitis of sigmoid colon (Acute) Acute metabolic encephalopathy Acute alteration in mental status (Acute) Urinary tract infection (Acute) Abnormal LFTs (Acute) SOL (acute kidney injury) (Acute) Hypomagnesemia (Acute) Generalized weakness (Acute) Hypomagnesemia (Acute) Generalized weakness (Acute) Elevated troponin (Acute) Chest pain (Acute) Decreased appetite Generalized weakness Elevated troponin Chronic anemia Chest pain (Acute) Abnormal EKG (Acute) Chronic RLQ pain Basal cell carcinoma of skin of ankle (Acute) Left knee DJD (Acute) Lichen sclerosus et atrophicus (Acute) 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 coli infection Hypertensive urgency IgM lambda paraproteinemia Surgical History History of gynecologic surgery anterior colporrhaphy History of hysteroscopy Status post tubal ligation History of total bilateral knee replacement (TKR) History of knee surgery History of appendectomy History of dilation and curettage S/P cholecystectomy Family History Mother , 85 Heart disease Diabetes Father , 65 Pancreatic cancer Sister Uterine cancer Breast cancer Denies family history of Ovarian cancer Colorectal cancer Social History Smoking Status: Never smoker Tobacco Type: Cigarettes Second Hand Exposure: No; Do You Dip or Chew Tobacco: No; Hx Alcohol Use: No Hx Substance Use: No Preferred Language: Portuguese Communication Ability: Effective Flight Data Technician Required: No Beliefs That Will Affect Care: None marital status: Current Living Situation: Spouse Current Living Situation Comment: at home current occupational status: retired Feels Safe at Home: Yes Assistive Devices: Cane, CPAP and Walker Physical Exam Vital Signs Vital Signs - 24 hr 02/21/24 16:30 02/21/24 18:14 02/21/24 18:37 Temperature 36.4 C L Temperature Source Temporal Artery Scan Pulse Rate 67 57 L Pulse Rate [Apical] 60 Pulse Rhythm [Apical] Regular Pulse Strength [Apical] Normal Respiratory Rate 18 16 Respiratory Effort / Characteristics Non-Labored Non-Labored Respiratory Depth Normal Normal Respiratory Pattern Regular Regular Blood Pressure 146/75 H Blood Pressure [Right Arm] 159/84 H Blood Pressure Mean 98 Blood Pressure Mean [Right Arm] 109 Blood Pressure Position [Right Arm] Lying Pulse Oximetry 97 95 Oxygen Delivery Method Room Air Room Air Sepsis Recent Fever Within 48 Hours No Sepsis New/Unexplained Change in Mental Status N/A Sepsis Action Taken by Nursing No Action Required 02/21/24 20:21 Temperature Temperature Source Pulse Rate Pulse Rate [Apical] 62 Pulse Rhythm [Apical] Pulse Strength [Apical] Respiratory Rate 12 Respiratory Effort / Characteristics Respiratory Depth Respiratory Pattern Blood Pressure Blood Pressure [Right Arm] 172/79 H Blood Pressure Mean Blood Pressure Mean [Right Arm] 110 Blood Pressure Position [Right Arm] Pulse Oximetry 95 Oxygen Delivery Method Room Air Sepsis Recent Fever Within 48 Hours Sepsis New/Unexplained Change in Mental Status Sepsis Action Taken by Nursing Physical Exam HENT: Exam performed. -Head: Normocephalic and atraumatic. EYES: Conjunctivae and EOM are normal. Pupils are equal, round, and reactive to light. Right eye exhibits no discharge. Left eye exhibits no discharge. No scleral icterus. NECK: Normal range of motion. Neck supple. No JVD present. CV: Normal rate, regular rhythm, normal heart sounds and intact distal pulses. There is no peripheral edema. Palpable radial pulses bue. PULM/CHEST: Effort normal and breath sounds normal. No respiratory distress. No stridor. She has no wheezes. She has no rales. ABD: The abdomen is soft.She has no distension. No mass is present. There is no tenderness. There is no rebound, no guarding. MUSC/SKEL: Pelvis stable. NEURO: She is alert and oriented to person, place, and time. She has normal strength. No cranial nerve deficit or sensory deficit. Coordination and gait normal. GCS eye subscore is 4. GCS verbal subscore is 5. GCS motor subscore is 6. Cerebellar tests wnl. SKIN: Dry scaly erythematous plaques over the patient's right inguinal area. Nikolsky negative. No vesicles. No warmth. No fluctuant areas. Consistent with appearance of a candidal infection. Course Course 175: The patient was evaluated in room A3. A complete history and physical exam was performed Cardiac monitoring: An order was placed for continuous cardiac monitoring. The monitor shows a rate of 70 with sinus arrhythmia interpreted by ga 2150: Vital signs stable. Labs are significant for a magnesium of 1.3. Otherwise unremarkable. Imaging is unremarkable. Magnesium repletion started in the emergency department. [facility]. Administered Medications Discontinued Medications Magnesium Sulfate/Dextrose (Magnesium Sulfate / D5w) 1 gm in 100 mls @ 100 mls/hr IV NOW STA Stop: 02/21/24 21:44 Last Infusion: 02/21/24 22:09 Dose: Infused Documented By: Admin: 02/21/24 21:06 Dose: 100 mls/hr Documented By: NASH Ioversol (Optiray 320 100ml) 93 ml IV ONCE ONE Stop: 02/21/24 19:28 Last Admin: 02/21/24 19:29 Dose: 93 ml Documented By: HARSHA Ondansetron HCl (Ondansetron Inj 2 Mg/Ml 2 Ml Vial) 4 mg IV NOW STA Stop: 02/21/24 21:55 Last Admin: 02/21/24 22:06 Dose: 4 mg Documented By: NASH Medical Decision Making Laboratory Data Attestation: I reviewed the patient's lab results. 02/21/24 16:32 02/21/24 16:32 Lab Results 02/21/24 02/21/24 02/21/24 Range/Units 16:32 19:20 20:13 WBC 8.86 (4.8-10.8) K/ul RBC 3.79 L (4.20-5.40) M/uL Hgb 11.3 L (12.0-16.0) g/dl Hct 34.1 L (37.0-47.0) % MCV 90.0 (80.0-100.0) fL MCH 29.8 (25.0-34.0) pg MCHC 33.1 (32.0-36.0) g/dL RDW Std Deviation 40.9 (36.4-46.3) fL RDW Coeff of Elpidio 12.3 (11.5-14.5) % Plt Count 192 (130-400) K/uL MPV 10.8 (9.4-12.4) fL Immature Gran % (Auto) 0.1 % Neut % (Auto) 57.5 % Lymph % (Auto) 30.5 % [place] % (Auto) 7.8 % Eos % (Auto) 3.4 % Baso % (Auto) 0.7 % Neut # (Auto) 5.10 (1.40-6.50) K/uL Lymph # (Auto) 2.70 (1.20-3.40) K/uL [place] # (Auto) 0.69 H (0.11-0.59) K/uL Eos # (Auto) 0.30 (0.00-0.50) K/uL Baso # (Auto) 0.06 (0.00-0.20) K/uL Immature Gran # (Auto) 0.01 (0.01-0.20) K/uL VBG pH 7.35 L (7.36-7.41) VBG pCO2 50 (38-50) mmHg VBG pO2 33 mmHg VBG HCO3 28 mmol/L VBG O2 Saturation < 60.0 % VBG Base Excess 1.2 mEq/L Sodium 139 (136-145) mmol/L Potassium 4.1 (3.5-5.1) mmol/L Chloride 106 (98-107) mmol/L Carbon Dioxide 25 (21-32) mmol/L Anion Gap 8 (3-11) BUN 30 H (6-23) mg/dl Creatinine 1.36 H (0.6-1.2) mg/dl Est Cr Clr Drug Dosing 29.4 ml/min eGFR 37.94 BUN/Creatinine Ratio 22.1 H (10-20) Glucose 177 H (70-99(Fasting)) mg/dl Calcium 10.2 (8.6-10.3) mg/dl Magnesium 1.3 L (1.7-2.4) mg/dl Total Bilirubin 0.8 (0.2-1.0) mg/dl AST 38 (13-39) U/L ALT 41 (7-52) U/L Alkaline Phosphatase 53 (34-104) U/L Ammonia 16.0 L (18-72) umol/L Total Protein 7.1 (6.0-8.3) gm/dl Albumin 4.0 (3.4-5.0) gm/dl Globulin 3.1 (2.5-4.0) gm/dl Albumin/Globulin Ratio 1.3 (0.9-2) Lipase 38 (11-82) U/L Urine Color Yellow Urine Appearance Clear (Clear) Urine pH 5.0 (4.5-7.5) Ur Specific [place] 1.014 (1.000-1.030) Urine Protein 2+ H (Negative) Urine Glucose (UA) Negative (Negative) Urine Ketones Negative (Negative) Urine Blood Negative (Negative) Urine Nitrite Negative (Negative) Urine Bilirubin Negative (Negative) Urine Urobilinogen Negative (Negative) Ur Leukocyte Esterase 2+ H (Negative) Urine WBC (Auto) 11-20 H (0-5) /hpf Urine RBC (Auto) 0-2 (0-2) /hpf U Hyaline Cast (Auto) 0-2 (0-2) /lpf U Epithel Cells (Auto) 3-5 H (0-2) /hpf Urine Bacteria (Auto) None Seen (None Seen) Adenovirus (PCR) Not Detected (NotDetected) B. pertussis DNA (PCR) Not Detected (NotDetected) B.parapertussis DNA PCR Not Detected (NotDetected) C. pneumoniae DNA (PCR) Not Detected (NotDetected) Coronavirus OC43 (PCR) Not Detected (NotDetected) Coronavirus HKU1 (PCR) Not Detected (NotDetected) Coronavirus 229E (PCR) Not Detected (NotDetected) SARS-CoV-2 (PCR) Not Detected (NotDetected) Coronavirus NL63 (PCR) Not Detected (NotDetected) Human Metapneumovir PCR Not Detected (NotDetected) Influenza Type A (PCR) Not Detected (NotDetected) Influenza Type B (PCR) Not Detected (NotDetected) M. pneumoniae (PCR) Not Detected (NotDetected) Parainfluenza 1 (PCR) Not Detected (NotDetected) Parainfluenza 2 (PCR) Not Detected (NotDetected) Parainfluenza 3 (PCR) Not Detected (NotDetected) Parainfluenza 4 (PCR) Not Detected (NotDetected) RSV (PCR) Not Detected (NotDetected) Entero/Rhino (PCR) Not Detected (NotDetected) Imaging Data Attestation: I personally reviewed and interpreted this imaging study as follows: My Impression: Chest x-ray negative. Airway clear. No pneumothorax. No consolidation. No cardiomegaly or cephalization.. No free air under the diaphragm. No fractures of the skeletal structures. Radiologist's Impression: Chest X-Ray 02/21/24 16:36 XR chest 1V portable HISTORY: 88 years-old Female weakness COMPARISON: 10/14/2023 TECHNIQUE: AP view the chest FINDINGS: Cardiac silhouette is upper limits of normal in size. No pneumothorax, large pleural effusion or overt pulmonary edema. There is unchanged blunting of the costophrenic angles with bibasilar atelectasis versus scarring. Healed chronic right proximal humeral fracture deformity. IMPRESSION: Cardiomegaly without acute process. ACT 112: Negative or not required by law. The above report was generated using voice recognition software. It may contain grammatical, syntax or spelling errors. Electronically signed by: Grupo Wood M.D. 02/21/2024 6:14 PM Abdomen/Pelvis CT 02/21/24 19:01 Exam(s): CT ABDOMEN + PELVIS With Contrast IV Amt: 93 ml optiray 320 EXAM: CT Abdomen and Pelvis With Intravenous Contrast CLINICAL HISTORY: Reason for exam: abd pain. TECHNIQUE: Axial computed tomography images of the abdomen and pelvis with intravenous contrast. CTDI is 26.32 mGy and DLP is 1218.32 mGy-cm. Automated exposure control was utilized for the study. A dose lowering technique was utilized adhering to the principles of ALARA. CONTRAST: Patient received 93 ml optiray 320 of IV contrast COMPARISON: 01/19/2024 FINDINGS: ABDOMEN: Liver: Unremarkable. Gallbladder and bile ducts: Status post cholecystectomy. Pancreas: Unremarkable. Spleen: Unremarkable. Adrenals: Unremarkable. Kidneys and ureters: Unremarkable. No obstructing stones. No hydronephrosis. Stomach and bowel: Sigmoid colonic diverticulosis without acute diverticulitis. PELVIS: Appendix: No findings to suggest acute appendicitis. Bladder: Unremarkable. Reproductive: Unremarkable as visualized. ABDOMEN and PELVIS: Intraperitoneal space: Unremarkable. No free air. No significant fluid collection. Bones/joints: No acute fracture. Soft tissues: Unremarkable. Vasculature: Unremarkable. Lymph nodes: Unremarkable. IMPRESSION: No acute findings in the abdomen or pelvis. Electronically signed by: Cleveland Kruse MD 02/21/24 21:[address] 02/21/24 19:01 Exam(s): CT HEAD Without Contrast EXAM: CT Head Without Intravenous Contrast CLINICAL HISTORY: Reason for exam: ams. TECHNIQUE: Axial computed tomography images of the head/brain without intravenous contrast. CTDI is 37.61 mGy and DLP is 624.41 mGy-cm. Automated exposure control was utilized for the study. A dose lowering technique was utilized adhering to the principles of ALARA. COMPARISON: 12/07/2023 FINDINGS: Brain: No hemorrhage, extra-axial fluid collection, mass effect, or edema. Ventricles: Unremarkable. Bones/joints: Unremarkable. No fracture. Soft tissues: Unremarkable. Sinuses: No acute sinusitis. Mastoid air cells: Unremarkable as visualized. IMPRESSION: 1. No acute intracranial abnormality. Electronically signed by: Cleveland Kruse MD 02/21/24 20:57 PM ECG Data Attestation: I personally reviewed and interpreted this ECG as follows: Rate (beats per minute): 73 Rhythm: + sinus with SA ECG Intervals/blocks: + Normal QRS, + Normal VA and + Normal QT-c ECG ST segments: + Normal ST segments [facility] Narrative 1759: The patient was evaluated in room A3. A complete history and physical exam was performed Cardiac monitoring: An order was placed for continuous cardiac monitoring. The monitor shows a rate of 70 with sinus arrhythmia interpreted by me 2150: Vital signs stable. Labs are significant for a magnesium of 1.3. Otherwise unremarkable. Imaging is unremarkable. Magnesium repletion started in the emergency department. [facility]. Impression & Plan Hypomagnesemia Discharge Plan Visit Data Chief Complaint: Illness Stated Complaint: RASH LOWER ABD, UNSTABLE ON FEET ED Provider: Josiah Restrepo Discharge Problem: Hypomagnesemia Patient Disposition: Admitted As Inpatient Forms Stand Alone Forms: [facility] Prescriptions Prescriptions: No Action levothyroxine 75 mcg tablet 75 mcg PO DAILYBB aspirin 81 mg Tablet,Delayed Release (Dr/Ec) 81 mg PO HS oxybutynin chloride 5 mg tablet extended release 24hr 5 mg PO HS Procrit 10,000 unit/mL solution 10,000 unit subcut MONTHLY PRN (Reason: WHEN NEEDED) Trulicity 0.75 mg/0.5 mL pen injector 0.75 mg SUBCUT WK Rx Instructions: ADMINISTER EVERY MONDAY Veltassa 8.4 gram powder in packet 8.4 g PO .EVERY OTHER NIGHT nitroglycerin [Nitrostat] 0.6 mg Tablet, Sublingual 0.6 mg sublingual DIRECTED PRN (Reason: Chest Pain) biotin 1 mg Capsule 1 mg PO QDL nystatin [Nyamyc] 100,000 unit/gram powder 1 applic TOPICAL TID PRN (Reason: irritation) cholecalciferol (vitamin D3) [Vitamin D3] 25 mcg (1,000 unit) Tablet 25 mcg PO QAM psyllium husk [Metamucil] 0.4 gram Capsule 0.4 g PO .EVERY OTHER NIGHT Saccharomyces boulardii [Florastor] 250 mg capsule 250 mg PO DAILY Rx Instructions: swallow whole amlodipine 2.5 mg tablet 2.5 mg PO DAILY losartan 25 mg tablet 25 mg PO DAILY estradiol 0.01 % (0.1 mg/gram) cream 1 applic VAGINAL UD ondansetron 4 mg tablet,disintegrating 4 mg PO Q8 PRN (Reason: Nausea And Vomiting) Referrals Referrals: Milton Balderas MD [Primary Care Provider] -
[2024-02-21 19:48] LABS: Magnesium 1.3 mg/dl (1.7-2.4)
[2024-02-21 19:56] LABS: Appearance Urine Clear (Clear); Bacteria Urine Automated None Seen (None Seen); Bilirubin Urine Negative (Negative); Blood Urine Negative (Negative); Cast Urine Automated 0-2 /lpf (0-2); Color Urine Yellow; Glucose Urine UA Negative (Negative); Ketones Urine Negative (Negative); Leukocyte Esterase Urine 2+ (Negative); Nitrite Urine Negative (Negative); Protein Urine 2+ (Negative); RBC Urine Automated 0-2 /hpf (0-2); Specific Gravity Urine 1.014 (1.000-1.030); Urobilinogen Urine Negative (Negative)
[2024-02-21 20:19] LABS: Base Excess VBG 1.2 mEq/L; HCO3 VBG 28 mmol/L; Oxygen Saturation VBG < 60.0 %; PCO2 VBG 50 mmHg (38-50); PO2 VBG 33 mmHg; pH VBG 7.35 (7.36-7.41)
--- NOTE | 2024-02-21 20:58 | CT Scan Report ---
Exam(s): CT HEAD Without Contrast EXAM: CT Head Without Intravenous Contrast CLINICAL HISTORY: Reason for exam: ams. TECHNIQUE: Axial computed tomography images of the head/brain without intravenous contrast. CTDI is 37.61 mGy and DLP is 624.41 mGy-cm. Automated exposure control was utilized for the study. A dose lowering technique was utilized adhering to the principles of ALARA. COMPARISON: 12/07/2023 FINDINGS: Brain: No hemorrhage, extra-axial fluid collection, mass effect, or edema. Ventricles: Unremarkable. Bones/joints: Unremarkable. No fracture. Soft tissues: Unremarkable. Sinuses: No acute sinusitis. Mastoid air cells: Unremarkable as visualized. IMPRESSION: 1. No acute intracranial abnormality. Electronically signed by: Cleveland Kruse MD 02/21/24 20:57 PM
--- NOTE | 2024-02-21 21:02 | CT Scan Report ---
Exam(s): CT ABDOMEN + PELVIS With Contrast IV Amt: 93 ml optiray 320 EXAM: CT Abdomen and Pelvis With Intravenous Contrast CLINICAL HISTORY: Reason for exam: abd pain. TECHNIQUE: Axial computed tomography images of the abdomen and pelvis with intravenous contrast. CTDI is 26.32 mGy and DLP is 1218.32 mGy-cm. Automated exposure control was utilized for the study. A dose lowering technique was utilized adhering to the principles of ALARA. CONTRAST: Patient received 93 ml optiray 320 of IV contrast COMPARISON: 01/19/2024 FINDINGS: ABDOMEN: Liver: Unremarkable. Gallbladder and bile ducts: Status post cholecystectomy. Pancreas: Unremarkable. Spleen: Unremarkable. Adrenals: Unremarkable. Kidneys and ureters: Unremarkable. No obstructing stones. No hydronephrosis. Stomach and bowel: Sigmoid colonic diverticulosis without acute diverticulitis. PELVIS: Appendix: No findings to suggest acute appendicitis. Bladder: Unremarkable. Reproductive: Unremarkable as visualized. ABDOMEN and PELVIS: Intraperitoneal space: Unremarkable. No free air. No significant fluid collection. Bones/joints: No acute fracture. Soft tissues: Unremarkable. Vasculature: Unremarkable. Lymph nodes: Unremarkable. IMPRESSION: No acute findings in the abdomen or pelvis. Electronically signed by: Cleveland Kruse MD 02/21/24 21:01 PM
[2024-02-21] MEDS: MAGNESIUM SULFATE / D5W 1 GM/100 ML BAG IV STA (21:06)
[2024-02-21] MEDS: ONDANSETRON INJ 2 MG/ML 2 ML VIAL IV STA (22:06)
--- NOTE | 2024-02-21 22:11 | History & Physical Report ---
Date of Service February 21, 2024 Assessment & Plan (1) Generalized weakness: Plan: Weakness: Plan: Multifactorial Complicated UTI, no sepsis for now, history ESBL UTI as per records Hypomagnesemia Possible deconditioning PSVT hypertension, elevated secondary discomfort DORIS on CPAP DM2 on oral medications, well-controlled as of recent hemoglobin A1c of 6.5 last month hypothyroidism, euthyroid as of today's TSH CRI, at baseline chronic anemia, at baseline hx dementia as per records, mentation at baseline past tobacco abuse Admit to medical telemetry given BP elevation Titrate home BP meds Urine CS, ertapenem given history ESBL E. coli UTI Replace electrolytes ISS BG goal 1 10-1 40, carb count coverage PT OT eval DVT prophylaxis with heparin subcu Full code Patient requesting updates from providers. Mr. Margarito Francisco, contact #[phone]. Text document was generated using [employer] voice recognition software. It may contain grammatical or spelling errors. Kindly contact undersigned for clarification of any documentation item in question. History of Present Illness Chief Complaint: Abdominal pain Primary Care Provider: Milton Balderas MD History obtained from patient and records. Medical history significant for PSVT, hypertension, DORIS on CPAP, GERD, diverticulitis, DM2 on oral medications, hypothyroidism, CRI (baseline creatinine 1.3 to 1.4), chronic anemia (baseline hemoglobin 9-10), dementia as per records, skin cancer as per records ESBL E. coli as per records, past tobacco abuse. Recent confinement last month for sigmoid diverticulitis. Patient discharged on Augmentin course. Patient still unsteady on her feet at time of discharge as per PCP outpatient follow-up note last month. Patient not feeling well the last few weeks. Abdominal discomfort and unsteadiness. Generalized weakness. Patient denies headache, chest pain, SOB. Patient brought to ER for evaluation. Highest SBP of 170s documented at the ER. 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 Allergies Allergy/AdvReac Type Severity Reaction Status Date / Time corn Allergy Severe Diarrhea Unverified 01/27/24 13:47 ciprofloxacin Allergy Intermediate RASH Verified 01/27/24 13:47 BENEDICT Inhibitors AdvReac Intermediate COUGH Verified 01/27/24 13:47 metformin AdvReac Intermediate GI SYMPTOMS Verified 01/27/24 13:47 Home Medications Medication Instructions Recorded Confirmed Type levothyroxine 75 mcg tablet 75 mcg PO DAILYBB 06/11/18 02/21/24 History aspirin 81 mg tablet,delayed 81 mg PO HS 03/27/19 02/21/24 History release dulaglutide 0.75 mg/0.5 mL 0.75 mg subcut WK 03/27/19 02/21/24 History subcutaneous pen injector (Trulicity) epoetin lou 10,000 unit/mL 10,000 unit subcut MONTHLY PRN 03/27/19 02/21/24 History injection solution (Procrit) WHEN NEEDED oxybutynin chloride 5 mg 5 mg PO HS 03/27/19 02/21/24 History tablet,extended release 24 hr biotin 1 mg capsule 1 mg PO QDL 05/26/22 02/21/24 History nitroglycerin 0.6 mg sublingual 0.6 mg sublingual DIRECTED PRN 05/26/22 02/21/24 History tablet (Nitrostat) Chest Pain patiromer calcium sorbitex 8.4 8.4 g PO .EVERY OTHER NIGHT 05/26/22 02/21/24 History gram oral powder packet (Veltassa) cholecalciferol (vitamin D3) 25 25 mcg PO QAM 05/22/23 02/21/24 History mcg (1,000 unit) tablet (Vitamin D3) nystatin 100,000 unit/gram topical 1 applic topical TID PRN irritation 05/22/23 02/21/24 History powder (Nyamyc) Saccharomyces boulardii 250 mg 250 mg PO DAILY 08/13/23 02/21/24 History capsule (Florastor) psyllium husk 0.4 gram capsule 0.4 g PO .EVERY OTHER NIGHT 08/13/23 02/21/24 History (Metamucil) amlodipine 2.5 mg tablet 2.5 mg PO DAILY 02/21/24 02/21/24 History estradiol 0.01% (0.1 mg/gram) 1 applic vaginal UD 02/21/24 02/21/24 History vaginal cream losartan 25 mg tablet 25 mg PO DAILY 02/21/24 02/21/24 History ondansetron 4 mg disintegrating 4 mg PO Q8 PRN Nausea And Vomiting 02/21/24 02/21/24 History tablet Past Med/Surg History Problem List (Updated 02/22/24 @ 10:02 by Evin Adams MD) Generalized weakness Hypomagnesemia (Acute) Diverticulitis (Acute) Diverticulitis of sigmoid colon (Acute) Acute metabolic encephalopathy Acute alteration in mental status (Acute) Urinary tract infection (Acute) Abnormal LFTs (Acute) SOL (acute kidney injury) (Acute) Hypomagnesemia (Acute) Generalized weakness (Acute) Hypomagnesemia (Acute) Generalized weakness (Acute) Elevated troponin (Acute) Chest pain (Acute) Decreased appetite Generalized weakness Elevated troponin Chronic anemia Chest pain (Acute) Abnormal EKG (Acute) Chronic RLQ pain Basal cell carcinoma of skin of ankle (Acute) Left knee DJD (Acute) Lichen sclerosus et atrophicus (Acute) 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 coli infection Hypertensive urgency IgM lambda paraproteinemia Surgical History History of gynecologic surgery anterior colporrhaphy History of hysteroscopy Status post tubal ligation History of total bilateral knee replacement (TKR) History of knee surgery History of appendectomy History of dilation and curettage S/P cholecystectomy Family History Mother , 85 Heart disease Diabetes Father , 65 Pancreatic cancer Sister Uterine cancer Breast cancer Denies family history of Ovarian cancer Colorectal cancer Social History Smoking Status: Never smoker Tobacco Type: Cigarettes Second Hand Exposure: No; Do You Dip or Chew Tobacco: No; Hx Alcohol Use: No Hx Substance Use: No Preferred Language: Icelandic Communication Ability: Effective Travel [employer] Required: No Beliefs That Will Affect Care: None marital status: Current Living Situation: Spouse Current Living Situation Comment: at home current occupational status: retired Other Information That Helps Us Care for You: No Feels Safe at Home: Yes Safety Concerns: Feels Safe At This Time Assistive Devices: Walker Review of Systems Review of Systems: As per HPI, all other systems reviewed and negative Physical Exam 2 Physical Exam: GENERAL: Oriented to year, slightly uncomfortable, slightly hard of hearing, no respiratory distress SKIN: Pallor,, warm HEENT: Bespectacled,pale palpebral conjunctivae, no ptosis, dry buccal mucosa NECK : Supple, no tenderness CHEST : CTA, no tenderness HEART : RRR, no obvious murmurs ABDOMEN: Some distention, minimal hypogastric tenderness EXTREMITIES : Minimal LE swelling, no LE tenderness, no other conspicuous deformities noted NEUROLOGIC : Oriented to year, no facial asymmetry, slightly hard of hearing, gait and stance not assessed Results & Data Results & Data Vital Signs (Past 12 Hours) Vital Signs Temp Pulse Pulse Resp BP BP Pulse Ox 02/21/24 20:21 62 12 172/79 H 95 02/21/24 18:37 60 16 159/84 H 95 02/21/24 18:14 57 L 02/21/24 16:30 36.4 C L 67 18 146/75 H 97 O2 Del Method 02/21/24 20:21 Room Air 02/21/24 18:37 Room Air 02/21/24 18:14 02/21/24 16:30 Room Air Laboratory Results Laboratory Results WBC 8.86 K/ul (4.8-10.8) 02/21/24 16:32 RBC 3.79 M/uL (4.20-5.40) L 02/21/24 16:32 Hgb 11.3 g/dl (12.0-16.0) L 02/21/24 16:32 Hct 34.1 % (37.0-47.0) L 02/21/24 16:32 MCV 90.0 fL (80.0-100.0) 02/21/24 16:32 MCH 29.8 pg (25.0-34.0) 02/21/24 16:32 MCHC 33.1 g/dL (32.0-36.0) 02/21/24 16: RDW Std Deviation 40.9 fL (36.4-46.3) 02/21/24 16: RDW Coeff of Elpidio 12.3 % (11.5-14.5) 02/21/24 16: Plt Count 192 K/uL (130-400) 02/21/24 16: MPV 10.8 fL (9.4-12.4) 02/21/24 16: Immature Gran % (Auto) 0.1 % 02/21/24 16: Neut % (Auto) 57.5 % 02/21/24 16: Lymph % (Auto) 30.5 % 02/21/24: [place] % (Auto) 7.8 % 02/21/24 16: Eos % (Auto) 3.4 % 02/21/24: Baso % (Auto) 0.7 % 02/21/24: Neut # (Auto) 5.10 K/uL (1.40-6.50) 02/21/24 16: Lymph # (Auto) 2.70 K/uL (1.20-3.40) 02/21/24 16:32 [place] # (Auto) 0.69 K/uL (0.11-0.59) H 02/21/24 16:32 Eos # (Auto) 0.30 K/uL (0.00-0.50) 02/21/24 16: Baso # (Auto) 0.06 K/uL (0.00-0.20) 02/21/24 16: Immature Gran # (Auto) 0.01 K/uL (0.01-0.20) 02/21/24 16: VBG pH 7.35 (7.36-7.41) L 02/21/24 20:13 VBG pCO2 50 mmHg (38-50) 02/21/24 20:13 VBG pO2 33 mmHg 02/21/24 20:13 VBG HCO3 28 mmol/L 02/21/24 20:13 VBG O2 Saturation < 60.0 % 02/21/24 20:13 VBG Base Excess 1.2 mEq/L 02/21/24 20:13 Sodium 139 mmol/L (136-145) 02/21/24 16:32 Potassium 4.1 mmol/L (3.5-5.1) 02/21/24 16:32 Chloride 106 mmol/L (98-107) 02/21/24 16:32 Carbon Dioxide 25 mmol/L (21-32) 02/21/24 16:32 Anion Gap 8 (3-11) 02/21/24 16:32 BUN 30 mg/dl (6-23) H 02/21/24 16:32 Creatinine 1.36 mg/dl (0.6-1.2) H 02/21/24 16:32 Est Cr Clr Drug Dosing 29.4 ml/min 02/21/24 16:32 eGFR 37.94 02/21/24 16:32 BUN/Creatinine Ratio 22.1 (10-20) H 02/21/24 16:32 Glucose 177 mg/dl (70-99(Fasting)) H 02/21/24 16:32 Calcium 10.2 mg/dl (8.6-10.3) 02/21/24 16:32 Magnesium 1.3 mg/dl (1.7-2.4) L 02/21/24 16:32 Total Bilirubin 0.8 mg/dl (0.2-1.0) 02/21/24 16:32 AST 38 U/L (13-39) 02/21/24 16:32 ALT 41 U/L (7-52) 02/21/24 16:32 Alkaline Phosphatase 53 U/L (34-104) 02/21/24 16:32 Ammonia 16.0 umol/L (18-72) L 02/21/24 20:13 Total Protein 7.1 gm/dl (6.0-8.3) 02/21/24 16:32 Albumin 4.0 gm/dl (3.4-5.0) 02/21/24 16:32 Globulin 3.1 gm/dl (2.5-4.0) 02/21/24 16:32 Albumin/Globulin Ratio 1.3 (0.9-2) 02/21/24 16:32 Lipase 38 U/L (11-82) 02/21/24 16:32 Urine Color Yellow 02/21/24 19:20 Urine Appearance Clear (Clear) 02/21/24 19:20 Urine pH 5.0 (4.5-7.5) 02/21/24 19:20 Ur Specific [place] 1.014 (1.000-1.030) 02/21/24 19:20 Urine Protein 2+ (Negative) H 02/21/24 19:20 Urine Glucose (UA) Negative (Negative) 02/21/24 19:20 Urine Ketones Negative (Negative) 02/21/24 19:20 Urine Blood Negative (Negative) 02/21/24 19:20 Urine Nitrite Negative (Negative) 02/21/24 19:20 Urine Bilirubin Negative (Negative) 02/21/24 19:20 Urine Urobilinogen Negative (Negative) 02/21/24 19:20 Ur Leukocyte Esterase 2+ (Negative) H 02/21/24 19:20 Urine WBC (Auto) 11-20 /hpf (0-5) H 02/21/24 19:20 Urine RBC (Auto) 0-2 /hpf (0-2) 02/21/24 19:20 U Hyaline Cast (Auto) 0-2 /lpf (0-2) 02/21/24 19:20 U Epithel Cells (Auto) 3-5 /hpf (0-2) H 02/21/24 19:20 Urine Bacteria (Auto) None Seen (None Seen) 02/21/24 19:20 Adenovirus (PCR) Not Detected (NotDetected) 02/21/24 16:32 B. pertussis DNA (PCR) Not Detected (NotDetected) 02/21/24 16:32 B.parapertussis DNA PCR Not Detected (NotDetected) 02/21/24 16:32 C. pneumoniae DNA (PCR) Not Detected (NotDetected) 02/21/24 16:32 Coronavirus OC43 (PCR) Not Detected (NotDetected) 02/21/24 16:32 Coronavirus HKU1 (PCR) Not Detected (NotDetected) 02/21/24 16:32 Coronavirus 229E (PCR) Not Detected (NotDetected) 02/21/24 16:32 SARS-CoV-2 (PCR) Not Detected (NotDetected) 02/21/24 16:32 Coronavirus NL63 (PCR) Not Detected (NotDetected) 02/21/24 16:32 Human Metapneumovir PCR Not Detected (NotDetected) 02/21/24 16:32 Influenza Type A (PCR) Not Detected (NotDetected) 02/21/24 16:32 Influenza Type B (PCR) Not Detected (NotDetected) 02/21/24 16:32 M. pneumoniae (PCR) Not Detected (NotDetected) 02/21/24 16:32 Parainfluenza 1 (PCR) Not Detected (NotDetected) 02/21/24 16:32 Parainfluenza 2 (PCR) Not Detected (NotDetected) 02/21/24 16:32 Parainfluenza 3 (PCR) Not Detected (NotDetected) 02/21/24 16:32 Parainfluenza 4 (PCR) Not Detected (NotDetected) 02/21/24 16:32 RSV (PCR) Not Detected (NotDetected) 02/21/24 16:32 Entero/Rhino (PCR) Not Detected (NotDetected) 02/21/24 16:32 Impressions Chest X-Ray 02/21/24 16:36 XR chest 1V portable HISTORY: 88 years-old Female weakness COMPARISON: 10/14/2023 TECHNIQUE: AP view the chest FINDINGS: Cardiac silhouette is upper limits of normal in size. No pneumothorax, large pleural effusion or overt pulmonary edema. There is unchanged blunting of the costophrenic angles with bibasilar atelectasis versus scarring. Healed chronic right proximal humeral fracture deformity. IMPRESSION: Cardiomegaly without acute process. ACT 112: Negative or not required by law. The above report was generated using voice recognition software. It may contain grammatical, syntax or spelling errors. Electronically signed by: Grupo Wood M.D. 02/21/2024 6:14 PM Abdomen/Pelvis CT 02/21/24 19:01 Exam(s): CT ABDOMEN + PELVIS With Contrast IV Amt: 93 ml optiray 320 EXAM: CT Abdomen and Pelvis With Intravenous Contrast CLINICAL HISTORY: Reason for exam: abd pain. TECHNIQUE: Axial computed tomography images of the abdomen and pelvis with intravenous contrast. CTDI is 26.32 mGy and DLP is 1218.32 mGy-cm. Automated exposure control was utilized for the study. A dose lowering technique was utilized adhering to the principles of ALARA. CONTRAST: Patient received 93 ml optiray 320 of IV contrast COMPARISON: 01/19/2024 FINDINGS: ABDOMEN: Liver: Unremarkable. Gallbladder and bile ducts: Status post cholecystectomy. Pancreas: Unremarkable. Spleen: Unremarkable. Adrenals: Unremarkable. Kidneys and ureters: Unremarkable. No obstructing stones. No hydronephrosis. Stomach and bowel: Sigmoid colonic diverticulosis without acute diverticulitis. PELVIS: Appendix: No findings to suggest acute appendicitis. Bladder: Unremarkable. Reproductive: Unremarkable as visualized. ABDOMEN and PELVIS: Intraperitoneal space: Unremarkable. No free air. No significant fluid collection. Bones/joints: No acute fracture. Soft tissues: Unremarkable. Vasculature: Unremarkable. Lymph nodes: Unremarkable. IMPRESSION: No acute findings in the abdomen or pelvis. Electronically signed by: Cleveland Kruse MD 02/21/24 21:[address] 02/21/24 19:01 Exam(s): CT HEAD Without Contrast EXAM: CT Head Without Intravenous Contrast CLINICAL HISTORY: Reason for exam: ams. TECHNIQUE: Axial computed tomography images of the head/brain without intravenous contrast. CTDI is 37.61 mGy and DLP is 624.41 mGy-cm. Automated exposure control was utilized for the study. A dose lowering technique was utilized adhering to the principles of ALARA. COMPARISON: 12/07/2023 FINDINGS: Brain: No hemorrhage, extra-axial fluid collection, mass effect, or edema. Ventricles: Unremarkable. Bones/joints: Unremarkable. No fracture. Soft tissues: Unremarkable. Sinuses: No acute sinusitis. Mastoid air cells: Unremarkable as visualized. IMPRESSION: 1. No acute intracranial abnormality. Electronically signed by: Cleveland Kruse MD 02/21/24 20:57 PM Diagnostic Findings EKG as per my interpretation :Rate 75, NSR, normal axis, T wave inversions anterolateral leads
[2024-02-21 22:45] LABS: Thyroid Stimulating Hormone 3.702 uIu/ml (0.300-4.500)
[2024-02-21] MEDS ORDERED: ACETAMINOPHEN 325 MG TAB PO PRN (22:51)
[2024-02-21] MEDS ORDERED: PROMETHAZINE 6.25 MG/50.25 ML BAG IV PRN (22:51)
[2024-02-21] MEDS ORDERED: traMADol HCL 50 MG TABLET PO PRN (22:52)
[2024-02-21] MEDS: amLODIPine BESYLATE 5 MG TAB PO ONE (22:53)
[2024-02-21] MEDS: MAGNESIUM SULFATE / D5W 1 GM/100 ML BAG IV SCH (22:53)
[2024-02-21] MEDS: ACETAMINOPHEN 325 MG TAB PO STA (23:58)
[2024-02-22] MEDS: ERTAPENEM 1000MG 1,000 MG/10 ML SYR IV STA
[2024-02-22] MEDS: hydrALAZINE HCL 20 MG/ML VIAL IV STA (00:08)
[2024-02-22] MEDS ORDERED: DEXTROSE 50% 50 ML SYRINGE IV PRN (00:57)
[2024-02-22] MEDS ORDERED: GLUCOSE 40% GEL 15 GM TUBE PO PRN (00:57)
[2024-02-22] MEDS ORDERED: GLUCAGON FOR INJ 1 MG VIAL SQ PRN (00:57)
[2024-02-22] MEDS ORDERED: CARBOHYDRATES FOR HYPOGLYCEMIA PO PRN (00:57)
[2024-02-22] MEDS ORDERED: GLUCOSE 10 TAB/TUBE PO PRN (00:57)
[2024-02-22] MEDS: SODIUM CHLORIDE 0.9% 1,000 ML IV STA (01:18)
[2024-02-22] MEDS: INSULIN ASPART PER UNIT CHARGE SC SCH (01:19)
[2024-02-22] MEDS: PATIROMER CALCIUM SORBITEX 8.4 GM PACK PO SCH (01:20)
[2024-02-22] MEDS: HEPARIN SOD 5,000 UNIT/0.5 ML VIAL SQ SCH (05:54)
[2024-02-22] MEDS: LEVOTHYROXINE SODIUM 75 MCG TABLET PO SCH (05:54)
[2024-02-22 08:05] LABS: Basophils # (auto) 0.02 K/uL (0.00-0.20); Basophils % (auto) 0.3 %; Eosinophils # (auto) 0.06 K/uL (0.00-0.50); Eosinophils % (auto) 0.9 %; Hematocrit (blood only) 30.7 % (37.0-47.0); Hemoglobin 10.2 g/dl (12.0-16.0); Immature Granulocytes # (auto) 0.02 K/uL (0.01-0.20); Immature Granulocytes % (auto) 0.3 %; Lymphocytes # (auto) 1.68 K/uL (1.20-3.40); Mean Corpuscular Hemoglobin 29.6 pg (25.0-34.0); Mean Corpuscular Hgb Conc 33.2 g/dL (32.0-36.0); Mean Platelet Volume 10.9 fL (9.4-12.4); Monocytes # (auto) 0.38 K/uL (0.11-0.59); Monocytes % (auto) 5.4 %; Neutrophils # (auto) 4.83 K/uL (1.40-6.50); Neutrophils % (auto) 69.1 %; Platelet Count 172 K/uL (130-400); RDW Coefficient of Variation 12.6 % (11.5-14.5); RDW Standard Deviation 41.1 fL (36.4-46.3); Red Blood Count 3.45 M/uL (4.20-5.40); White Blood Count 6.99 K/ul (4.8-10.8)
[2024-02-22] MEDS: SACCHAROMYCES BOULARDII 250 MG CAP PO SCH (08:06)
[2024-02-22] MEDS: LOSARTAN POTASSIUM 25 MG TAB PO SCH (08:07)
[2024-02-22] MEDS: amLODIPine BESYLATE 5 MG TAB PO SCH (08:07)
[2024-02-22 08:16] LABS: BUN Creatinine Ratio 19.1 (10-20); Calcium 9.3 mg/dl (8.6-10.3); Creatinine Clr Calc Pharmacy 28.3 ml/min; Magnesium 2.2 mg/dl (1.7-2.4); Potassium 4.1 mmol/L (3.5-5.1)
--- NOTE | 2024-02-22 08:35 | Electrocardiogram Report ---
Test Reason : Blood Pressure : */* mmHG Vent. Rate : 73 BPM Atrial Rate : 73 BPM P-R Int : 138 ms QRS Dur : 86 ms QT Int : 366 ms P-R-T Axes : 63 19 148 degrees QTcB Int : 403 ms Sinus rhythm with marked sinus arrhythmia Diffuse Nonspecific ST and T wave abnormality Abnormal ECG When compared with ECG of 16-Jan-2024 05:09, Nonspecific T wave abnormality, improved in Inferior leads T wave inversion less evident in Anterior leads Confirmed by Se Garcia ([id number]) on 02/22/2024 8:34:59 AM Referred By: Confirmed By: Se Garcia
[2024-02-22] MEDS: MAGNESIUM CHLORIDE W/CALCIUM 64MG DELAYED REL TAB PO SCH (10:23)
--- OUTSIDE RECORDS SUMMARY | 2024-02-22 12:37 | External Medical Summary | Summary of Care ---
Author Name Unknown Organization [facility] Address [address] [place] [address] Phone [phone] Care Team Providers Care Professional Bass Fisherman Name Role Phone Milton Balderas MD Primary Care Provider + Reason for Visit * Reason Onset Date Comments Oxygen Assessment 01/30/2024 Nocturnal oxim etry done Fall 2022 - [facility] Encounter Details Date Type Department Care Team (Late st Contact Info) Description 01/30/2024 Telephone Sleep Disorders Ctr [facility] [address] [place] [phone] Lucila Flanagan CRNP [address] [place] [address] Oxygen Assessment (Nocturnal oximetry done... Allergies Active Allergy Reactions Criticality Noted Date Comments Neville Inhibitors Cough 09/29/2010 Lisinopril causes cough Ciprofloxacin Rash Medium 05/03/2014 Rash with first IV dose in hospital Metformin Diarrhea 09/29/2010 documented as of this encounter (statuses as of 02/12/2024) Medications Medication Sig Dispensed Refills Start Date [...] CHEW) 90 Tablet 3 3 Active Nystatin 252296 UNIT/GM External Powder (Nystop)Indication s:Tinea corporis Apply topically to affected area 3 times a day. Apply to under breasts and belly 60 g 1 3 Active Boost Oral Liquid Take by mouth daily. Active Vitamin D3 25 MCG (1000 UT) Oral Tablet (Vitamin D3)Indications:Vit cordova D deficiency Take 1 Tablet by mouth in the morning. 3 Active CPAP every night at bedtime. Active Procrit 31564 UNIT/ML Injection SolutionIndication s:Anemia of chronic renal failure, unspecified stage Inject 10,000 units subcutaneous every 4 weeks, 84-day supply. 3 mL 3 3 Active BD TB Syringe 27G X 1/2" 1 ML (Tuberculin Syringe) Use to inject Procrit monthly or as directed 3 Each 1 3 Active OneTouch Verio In Vitro [...] the morning. 16 g 1 4 Active Trulicity 0.75 MG/0.5ML Subcutaneous Solution Pen-injector (Dulaglutide)Indic ations:Type 2 diabetes mellitus with stage 4 chronic kidney disease, without long-term current use of insulin (HCC) INJECT 1 PEN WEEKLY 6 mL 1 4 Active Estradiol 0.1 MG/GM Vaginal Cream (Estrace)Indicatio ns:Recurrent UTI Use 1gm nightly -rub around vaginal opening and use inside , for 2 weeks. Then use twice weekly. 42.5 g 3 4 Active Ferrous Sulfate 325 (65 Fe) MG Oral Tablet (Feosol) Take 1 Tablet by mouth daily. 90 Tablet 1 4 Active Ondansetron 4 MG Oral Tablet Disintegrating (Zofran) Place 1 Tablet on tongue every 8 hours as needed for Nausea. dissolve on tongue. 30 Tablet 1 4 Active Veltassa 8.4 GM Oral Packet (Patiromer Sorbitex Calcium)Indication s:End stage renal disease (HCC) take 1 packet every other day 30 Each 3 3 02/01/20 24 Discontinued Levothyroxine Sodium 75 MCG Oral Tablet (Levoxyl) TAKE 1 TABLET DAILY FIRST THING IN THE MORNING 90 Tablet 3 3 02/08/20 24 Discontinued documented as of this encounter (statuses as of 02/12/2024) Active Problems Problem Noted Date Diagnosed Date [...] as of this encounter (statuses as of 02/12/2024) Resolved Problems Problem Noted Date Diagnosed Date [...] as of this encounter (statuses as of 02/12/2024) Immunizations Name Administration Dates Next Due COVID-19 mRNA, LNP-s, No Pre serve, 2-Dose Series (Pfizer) 03/15/2021,07/15/2020,06/17/2020 Pneumococcal Conjugate Vacc, 13 Valent (Prevnar) 08/13/2014 Pneumococcal Polysaccharide PPV23 (Pneumovax) 09/29/2010 RSV Vac., Recomb, Adjuvant, PF,0.5 Ml (Arexvy) 06/05/2023 Seasonal Influenza Vac., MDV , IM, 0.5 mL (Fluzone) 02/10/2014,02/05/2013,01/25/2012,01/06,03/15/2010 Seasonal Influenza, PF, 6 M & above, IM , (FluLaval or Fluzone) 01/06/2020,01/30/2018,02/02/2017 Seasonal Influenza, Quadriva lent Hd (Fluzone Hd) 01/17/2023,03/24/2022,01/26/2021 Seasonal Influenza, Quadriva lent Hd, 65+ Yrs 01/06/2020 Seasonal Influenza, Quadriva lent, No Preserve, IM 03/03/2016,02/12/2015 03/03/2017 Seasonal Influenza, Trivalen t, Adjuvanted, 65+ YRS, PF, (Fluad) 01/18/2019 TDAP (age 10 and older)(Boostrix) 10/14/2018,12/2014 [...] encounter Miscellaneous Notes * Telephone Encounter - Netta Nettles LPN - 02/12/2024 10:27 AM EDT Order has been sent to * Telephone Encounter - Lucila Flanagan CRNP - 02/09/2024 4:43 PM EDT Order placed. * Telephone Encounter - Emelia Llamas LPN - 02/09/2024 8:31 AM EDT I spoke with Ekta, who doesn't remember ever doing the testing. She is willing to have it done. * Telephone Encounter - Lucila Flanagan CRNP - 02/09/2024 7:09 AM EDT Please let Ekta know. I can place another order if she would like to have the test repeated. * Telephone Encounter - Emelia Llamas LPN - 01/31/2024 10:48 AM EDT Dorina from [facility] called-this result was never uploaded, so either she didn't complete the testing, or for some reason the office didn't upload the results. 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 * Telephone Encounter - Emelia Llamas LPN - 01/30/2024 11:45 AM EDT Called Sherice at [facility] and requested results. She will look into it and get back to us. * Telephone Encounter - Lucila Flanagan CRNP - 01/30/2024 8:55 AM EDT Please contact [facility] regarding overnight oximetry test that was done fall. Results were neverreceived. documented in this encounter Plan of Treatment Upcoming Encounters Date Type Department Care Team (Late st Contact Info) Description 02/12/2024 1:00 PM EDT [facility] [address] [place] [address] Neelam Hilliard MD [address] [place] [address] Arrived 02/26/2024 9:50 AM EDT Laboratory Laboratory, [place] [address] [place] [phone] [place], Laboratory [address] [place] [address] 02/27/2024 9:30 AM EDT Pharmacy Pharmacy, [address] [address] 02/29/2024 10:20 AM EDT Office Visit [facility] [address] [place] [address] Joyce Miner CRNP [address] [place] [address] 07/03/2024 3:20 PM EST Office Visit [facility] [address] [place] [address] Milton Balderas MD [address] [place] [address] 01/30/2025 10:00 AM EDT Office Visit Sleep Disorders Ctr [facility] [address] [place] [phone] Lucila Flanagan CRNP [address] [place] [address] Scheduled Orders Name Type Priority Associated Diagnoses Orde r Schedule NOCTURNAL HOME OXIMETRY (OP) Procedures Routine DORIS on CPAP Nocturnal hypoxemia Ordered: 02/09/2024 Health Maintenance Due Date Last Done Comments Adult Wellness Visit 12/25/2021 12/25/2020 COVID-19 Vaccine ( season) 2024 03/15/2021, 07/15/2020, 06/17/2020 Influenza Vaccine (FLU shot) (#1) 2024 01/17/2023, 03/24/2022, 01/26/2021, Additional history exists Diabetic Foot Exam 05/25/2024 05/25/2023, 0 08/18/2021, 08/27/2020, Additional history exists HbA1c 06/05/2024 12/04/2023, 12/2 05/2022, 07/26/2022, Additional history exists Depression Screening 08/22/2024 08/23/2023 Albumin/Creatinine Ratio 12/03/2024 024, 08/31/2023, 07/26/2023, Additional history exists Diabetic Eye Exam 12/27/2024 12/28/2023, (Done elsewhere), 12/23/2020, Additional history exists TSH 01/17/2025 01/18/2024, 11/06, 12/04/2023, Additional history exists DTap/Tdap Vaccines (3 - [...] as of this encounter Visit Diagnoses Diagnosis DORIS on CPAP- Primary Obstructive sleep apnea (adult) (pediatric) Nocturnal hypoxemia Hypoxemia documented in this encounter Additional Health Concerns Infection Onset Date Last Indicated Resolved Time ESBL 12/07/2023 12/07/2023 02/05/2024 12:2 1 AM EDT documented as of this encounter Care Teams Professional Bass Fisherman Relationship Specialty Start Date End Date Milton Balderas MD [address] [place] [address] PCP - General Family Medicine 10/13/20 documented as of this encounter
--- OUTSIDE RECORDS SUMMARY | 2024-02-22 12:37 | External Medical Summary | Summary of Care ---
Author Name Unknown Organization [facility] Address [address] [place] [address] Phone [phone] Care Team Providers Care Small Parts Assembler Name Role Phone Milton De Luna MD Primary Care Provider + Reason for Visit * Reason Comments eRx-Medication Refill Encounter Details Date Type Department Care Team (Late st Contact Info) Description 02/07/2024 Refill Family Practice [facility] [address] [place] [address] Milton De Luna MD [address] [place] [address] Allergies Active Allergy Reactions Criticality Noted Date Comments Neville Inhibitors Cough 09/29/2010 Lisinopril causes cough Ciprofloxacin Rash Medium 05/03/2014 Rash with first IV dose in hospital Metformin Diarrhea 09/29/2010 documented as of this encounter (statuses as of 02/08/2024) Medications Medication Sig Dispensed Refills Start Date [...] CHEW) 90 Tablet 3 3 Active Nystatin 234675 UNIT/GM External Powder (Nystop)Indication s:Tinea corporis Apply [...] CPAP every night at bedtime. Active Procrit 11509 UNIT/ML Injection SolutionIndication s:Anemia of chronic renal [...] Sorbitex Calcium)Indication s:End stage renal disease (HCC) Take 1 Packet by mouth every other day. 30 Each 3 4 Active Levothyroxine Sodium 75 MCG Oral Tablet (Levoxyl) TAKE 1 TABLET DAILY FIRST THING IN THE MORNING 90 Tablet 3 4 Active Levothyroxine Sodium 75 MCG Oral Tablet (Levoxyl) TAKE 1 TABLET DAILY FIRST THING IN THE MORNING 90 Tablet 3 3 02/08/20 24 Discontinued documented as of this encounter (statuses as of 02/08/2024) Active Problems Problem Noted Date Diagnosed Date [...] as of this encounter (statuses as of 02/08/2024) Resolved Problems Problem Noted Date Diagnosed Date [...] as of this encounter (statuses as of 02/08/2024) Immunizations Name Administration Dates Next Due COVID-19 mRNA, LNP-s, No Pre serve, 2-Dose Series (Blendin) 03/15/2021,07/15/2020,06/17/2020 Pneumococcal Conjugate Vacc, 13 Valent (Prevnar) [...] encounter Miscellaneous Notes * Telephone Encounter - Carol Thomas RPh - 02/08/2024 10:52 AM EDT Signed Prescriptions: Disp Refills Levothyroxine Sodium 75 MCG Oral Tablet (L*90 Tab*3 Sig: TAKE 1 TABLET DAILY FIRST THING IN THE MORNINGAuthorizing Provider: MILTON DE LUNA User: CAROL THOMAS documented in this encounter Plan of Treatment Upcoming Encounters Date Type Department Care Team (Late st Contact Info) Description 02/12/2024 1:00 PM EDT Office Visit Nephrology, [facility] [address] [place] [address] Neelam Hilliard MD [address] [place] [address] 02/26/2024 9:50 AM EDT [facility] [place] [address] [facility] [phone] [place], [facility] [address] [facility] [place] [id number] 02/27/2024 9:30 AM EDT Pharmacy Pharmacy, [place] [address] [place] [address] Clinic, [facility] [address] [place] [address] 02/29/2024 10:20 AM EDT Office Visit [facility] [address] [place] [address] Joyce Miner CRNP [address] [place] [address] 07/03/2024 3:20 PM EST Office Visit [facility] [address] [place] [address] Milton De Luna MD [address] [place] [address] 01/30/2025 10:00 AM EDT Office Visit Sleep Disorders Ctr [facility] [address] [facility] [place] [phone] Lucila Flanagan CRNP [address] [place] [address] Health Maintenance Due Date Last Done Comments [...] filedocumented as of this encounter Care Teams Small Parts Assembler Relationship Specialty Start Date End Date Milton De Luna MD [address] [place] [address] PCP - General Family Medicine 10/13/20 documented as of this encounter
--- OUTSIDE RECORDS SUMMARY | 2024-02-22 12:37 | External Medical Summary | Summary of Care ---
Author Name Unknown Organization [facility] Address [address] [place] [address] Phone [phone] Care Team Providers Care Butcher Helper Name Role Phone Milton Balderas MD Primary Care Provider + Reason for Visit * Reason Onset Date Comments Appointment 02/14/2024 Encounter Details Date Type Department Care Team (Late st Contact Info) Description 02/14/2024 Telephone Nephrology, [facility] [address] [place] [address] Neelam Hilliard MD [address] [place] [address] Appointment Allergies Active Allergy Reactions Criticality Noted Date Comments Neville Inhibitors Cough 09/29/2010 Lisinopril causes cough Ciprofloxacin Rash Medium 05/03/2014 Rash with first IV dose in hospital Metformin Diarrhea 09/29/2010 documented as of this encounter (statuses as of 02/14/2024) Medications Medication Sig Dispensed Refills Start Date End Date Status ASPIRIN 81 MG PO TABSIndications:take s at night Take by mouth daily. Indications: [...] Oral Tablet Extended Release 24 Hour (Ditropan XL)Indications:Urina ry frequency TAKE 1 TABLET DAILY (DO NOT CUT, CRUSH OR CHEW) 90 Tablet 3 06/20/2022 Active Nystatin 725278 UNIT/GM External Powder (Nystop)Indications: Tinea corporis Apply topically to affected area 3 times a day. Apply to under breasts and belly 60 g 1 07/13/2022 Active Boost Oral Liquid Take by mouth daily. Active Vitamin D3 25 MCG (1000 UT) Oral Tablet (Vitamin D3)Indications:Vitam in D deficiency Take 1 Tablet by mouth in the morning. 12/22/2022 Active CPAP every night at bedtime. Active Procrit 86507 UNIT/ML Injection SolutionIndications: Anemia of chronic renal failure, unspecified stage Inject [...] Active Trulicity 0.75 MG/0.5ML Subcutaneous Solution Pen-injector (Dulaglutide)Indicat ions:Type 2 diabetes mellitus with stage 4 chronic kidney disease, without long-term current use of insulin (HCC) INJECT 1 PEN WEEKLY 6 mL 1 10/17/2023 Active Estradiol 0.1 MG/GM Vaginal Cream (Estrace)Indications :Recurrent UTI Use 1gm nightly -rub around vaginal opening and use inside , for 2 weeks. Then use twice weekly. 42.5 g 3 10/27/2023 Active Ferrous Sulfate 325 (65 Fe) MG Oral Tablet (Feosol) Take 1 Tablet by mouth daily. 90 Tablet 1 12/28/2023 Active Ondansetron 4 MG Oral Tablet Disintegrating (Zofran) Place 1 Tablet on tongue every 8 hours as needed for Nausea. dissolve on tongue. 30 Tablet 1 01/24/2024 Active Veltassa 8.4 GM Oral Packet (Patiromer Sorbitex Calcium)Indications: End stage renal disease (HCC) Take 1 Packet by mouth every other day. 30 Each 3 02/01/2024 Active Levothyroxine Sodium 75 MCG Oral Tablet (Levoxyl) TAKE 1 TABLET DAILY FIRST THING IN THE MORNING 90 Tablet 3 02/08/2024 Active documented as of this encounter (statuses as of 02/14/2024) Active Problems Problem Noted Date Diagnosed Date [...] swallow, 01/25/2010 at [facility] DORIS on CPAP 11/10/2010 Overview: Sleep study on 12/24/2009, [facility], Cpap 8, flex setting 3 AHP ICD-10 update of inactive term History of basal cell cancer 11/10/2010 Overview: BCC, left neck, 12/24/2009 ICD-10 update of inactive term HTN, goal below 130/80 09/29/2010 Dyslipidemia, goal LDL below 100 09/29/2010 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 Pernicious anemia Hypothyroidism GERD (gastroesophageal reflux disease) documented as of this encounter (statuses as of 02/14/2024) Resolved Problems Problem Noted Date Diagnosed Date [...] as of this encounter (statuses as of 02/14/2024) Immunizations Name Administration Dates Next Due COVID-19 mRNA, LNP-s, No Pre serve, 2-Dose Series (Dragon Law) 03/15/2021,07/15/2020,06/17/2020 Pneumococcal Conjugate Vacc, 13 Valent (Prevnar) [...] Telephone Encounter - Rochelle Saldivar LPN - 02/14/2024 11:52 AM EDT As previous discussed/requested with Pt She is called by nursing staff to confirm apt 02/15/24 @ 1300 * Telephone Encounter - Rochelle Saldivar LPN - 02/14/2024 11:52 AM EDT ----- Message from Rochelle Castrejon sent at 02/13/2024 9:46 AM EDT ----- Regarding: Call patient Call patient with apt time documented in this encounter Plan of Treatment Upcoming Encounters Date Type Department Care Team (Late st Contact Info) Description 02/15/2024 1:00 PM EDT Office Visit Nephrology, [facility] [address] [place] [address] Neelam Hilliard MD [address] [place] [address] 02/26/2024 9:50 AM EDT Laboratory Laboratory, [place] [address] [place] [phone] [place], [facility] [address] [place] [address] 02/27/2024 9:30 AM EDT Pharmacy Pharmacy, [address] [address] Clinic, [place] [address] [place] [address] 02/29/2024 10:20 AM EDT Office Visit [facility] [address] [place] [address] Joyce Miner CRNP [address] [place] [address] 07/03/2024 3:20 PM EST Office Visit [facility] [address] [place] [address] Milton Balderas MD [address] [place] [address] 01/30/2025 10:00 AM EDT Office Visit [facility] Disorders Ctr [facility] [address] [place] [phone] Lucila Flanagan CRNP [address] [place] [address] Health Maintenance Due Date Last Done Comments Adult Wellness Visit 12/25/2021 12/25/2020 COVID-19 Vaccine ( season) 2024 03/15/2021, 07/15/2020, 06/17/2020 Influenza Vaccine (FLU shot) (#1) 2024 01/17/2023, 03/24/2022, 01/26/2021, Additional history exists Diabetic Foot Exam 05/25/2024 05/25/2023, 0 08/18/2021, 08/27/2020, Additional history exists HbA1c 06/05/2024 12/04/2023, 12/05/2022, 07/26/2022, Additional history exists Depression Screening 08/22/2024 [...] filedocumented as of this encounter Care Teams Butcher Helper Relationship Specialty Start Date End Date Milton Balderas MD [address] [place] [address] PCP - General Family Medicine 10/13/20 documented as of this encounter
--- OUTSIDE RECORDS SUMMARY | 2024-02-22 12:37 | External Medical Summary | Summary of Care ---
Author Name Unknown Organization [facility] Address [address] [place] [address] Phone [phone] Care Team Providers Care Singe Winder Name Role Phone Milton Balderas MD Primary Care Provider + Reason for Visit * Reason Onset Date Comments Hospital Follow-Up [facility]-- [facility]-- 01/22 Hospital Follow-Up 01/29/2024 Encounter Details Date Type Department Care Team (Late st Contact Info) Description 01/29/2024 10:00 AM EDT Office Visit Family Practice [facility] [address] [place] [phone] Laurita Engle CRNP [address] [place] [address] Hospital discharge follow-up*; Diverticulitis of colon; Hypertensive urgency; Type 2 diabetes mellitus with hemoglobin A1c goal of less than 8.0% ([facility]); Hypothyroidism, unspecified type; DORIS on CPAP; HTN, goal below 130/80; Gastroesophageal reflux disease, unspecified whether esophagitis present; Mild dementia without behavioral disturbance, psychotic disturbance, mood disturbance, or anxiety, unspecified dementia type ([facility]) Allergies Active Allergy Reactions Criticality Noted Date Comments Neville Inhibitors Cough 09/29/2010 Lisinopril causes cough Ciprofloxacin Rash Medium 05/03/2014 Rash with first IV dose in hospital Metformin Diarrhea 09/29/2010 documented as of this encounter (statuses as of 02/19/2024) Medications Medication Sig Dispensed Refills Start Date End Date Status ASPIRIN 81 MG PO TABSIndications:ta kes at night Take by mouth daily. Indications: takes at night 0 06/08/19 07 Active BD PEN NEEDLE SHORT U/F 31G X 8 MM USE WITH INSULIN UP TO 4 TIMES DAILY FOR DIABETES 1 Box Dosing Unit 11 01/07/20 Active nitroglycerin (NITROSTAT) 0.[address] 1 Tablet under the tongue every 5 minutes as needed. Active Probiotic Product (PROBIOTIC DAILY) Capsule Take 1 Cap by mouth daily. 09/17/19 Active Biotin 1 MG Capsule Take 1 Capsule by mouth in the morning and 1 Capsule at noon and 1 Capsule before bedtime. Active Metamucil 0.36 GM Oral Capsule (Psyllium) Take by mouth every other day . Active FreeStyle Lancets USE TO TEST BLOOD SUGAR 2 TIMES A DAY Dx: E11.9 200 Each 3 06/14/19 Active Oxybutynin Chloride ER 5 MG Oral Tablet Extended Release 24 Hour (Ditropan XL)Indications:Uri nary frequency TAKE 1 TABLET DAILY (DO NOT CUT, CRUSH OR CHEW) 90 Tablet 3 06/20/19 Active Nystatin 220511 UNIT/GM External Powder (Nystop)Indication s:Tinea corporis Apply topically to affected area 3 times a day. Apply to under breasts and belly 60 g 1 07/14/19 Active Boost Oral Liquid Take by mouth daily. Active Vitamin D3 25 MCG (1000 UT) Oral Tablet (Vitamin D3)Indications:Vit cordova D deficiency Take 1 Tablet by mouth in the morning. 12/23/19 Active CPAP every night at bedtime. Active Procrit 04088 UNIT/ML Injection SolutionIndication s:Anemia of chronic renal failure, unspecified stage Inject 10,000 units subcutaneous every 4 weeks, 84-day supply. 3 mL 3 02/24/20 Active BD TB Syringe 27G X 1/2" 1 ML (Tuberculin Syringe) Use to inject Procrit monthly or as directed 3 Each 1 02/24/20 23 Active OneTouch Verio In Vitro Strip (Glucose Blood) Use to test blood sugar 2 times a day. DX E11.9 200 Strip 1 06/09/19 24 Active OneTouch Delica Lancets 30G USE TO CHECK GLUCOSE UP TO 4 TIMES DAILY 400 Each 3 06/09/19 24 Active Fluticasone Propionate 50 MCG/ACT Nasal Suspension (Flonase) Administer 2 Sprays into each nostril in the morning. 16 g 1 07/07/19 24 Active Trulicity 0.75 MG/0.5ML Subcutaneous Solution Pen-injector (Dulaglutide)Indic ations:Type 2 diabetes mellitus with stage 4 chronic kidney disease, without long-term current use of insulin (HCC) INJECT 1 PEN WEEKLY 6 mL 1 10/17/19 24 Active Estradiol 0.1 MG/GM Vaginal Cream (Estrace)Indicatio ns:Recurrent UTI Use 1gm nightly -rub around vaginal opening and use inside , for 2 weeks. Then use twice weekly. 42.5 g 3 10/27/19 24 Active Additional Information Patient not taking.Reported on 02/15/2024 Ferrous Sulfate 325 (65 Fe) MG Oral Tablet (Feosol) Take 1 Tablet by mouth daily. 90 Tablet 1 12/28/19 24 Active Ondansetron 4 MG Oral Tablet Disintegrating (Zofran) Place 1 Tablet on tongue every 8 hours as needed for Nausea. dissolve on tongue. 30 Tablet 1 01/24/20 24 Active Veltassa 8.4 GM Oral Packet (Patiromer Sorbitex Calcium)Indication s:End stage renal disease (HCC) take 1 packet every other day 30 Each 3 12/27/19 23 024 Discontinued Levothyroxine Sodium 75 MCG Oral Tablet (Levoxyl) TAKE 1 TABLET DAILY FIRST THING IN THE MORNING 90 Tablet 3 02/15/20 23 024 Discontinued Sulfamethoxazole-T rimethoprim 800-160 MG Oral Tablet (Bactrim DS) Take 1 Tablet by mouth in the morning and 1 Tablet before bedtime. Do all this for 7 days. Until gone. 14 Tablet 10/12/19 24 024 Discontinued Sulfamethoxazole-T rimethoprim 800-160 MG Oral Tablet (Bactrim DS) Take 1 Tablet by mouth in the morning and 1 Tablet before bedtime. Do all this for 7 days. 14 Tablet 01/23/20 24 024 Discontinued(Al dication List Clean Up) metroNIDAZOLE 500 MG Oral Tablet (Flagyl) Take 1 Tablet by mouth in the morning and 1 Tablet at noon and 1 Tablet before bedtime. Do all this for 7 days. 21 Tablet 01/23/20 24 024 Discontinued documented as of this encounter (statuses as of 02/19/2024) Active Problems Problem Noted Date Diagnosed Date [...] Overview: Found on barium swallow, 01/25/2010 at [facility] DORIS on CPAP 11/10/2010 Overview: Sleep study on 12/24/2009, [facility], Cpap 8, flex setting 3 AHP ICD-10 update of inactive term History of basal cell cancer 11/10/2010 Overview: BCC, left neck, 12/24/2009 ICD-10 update of inactive term HTN, goal below 130/80 09/29/2010 Dyslipidemia, goal LDL below 100 09/29/2010 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 Pernicious anemia Hypothyroidism GERD (gastroesophageal reflux disease) documented as of this encounter (statuses as of 02/19/2024) Resolved Problems Problem Noted Date Diagnosed Date [...] as of this encounter (statuses as of 02/19/2024) Immunizations Name Administration Dates Next Due COVID-19 [...] Sign Reading Time Taken Comments Blood Pressure 144/82 01/29/2024 10:09 AM EDT Pulse 55 01/29/2024 10:09 AM EDT Temperature 36.5 C (97.7 F) 01/29/2024 10:09 AM E DT Respiratory Rate - - Oxygen Saturation 95% 01/29/2024 10:09 AM EDT Inhaled Oxygen Concentration - - Weight 78 kg (171 lb 14.4 oz) 01/29/2024 10:09 A M EDT Height 165.1 cm (5' 5") 01/29/2024 10:09 AM EDT Body Mass Index 28.61 01/29/2024 10:09 AM EDT documented in this encounter Progress Notes * Laurita Engle CRNP - 01/29/2024 10:13 AM EDT SUBJECTIVE: Ekta Francisco is a 88 year old female. Chief Complaint Patient presents with Hospital Follow-Up [facility]-- 03-20 [facility]-- 01/22 Hospital Follow-Up Recent Admission: Patient was recently admitted to [facility]. The date of discharge was 01/18. Discharge report received and reviewed. HPI: She was admitted to [facility] for acute diverticulitis. Discharged home on augmentin after being treated inpatient with IV antibiotics. Had hypertensive urgency with chest pain on and off in hospital- treated with IV labetalol. She returned to [facility] ED on 01/22 because her symptoms were not better (not worse, just not better). She was switched to bactrim and flagyl instead of augmentin. She then went back to [facility] ER on 01/26 because of ongoing nausea and stomach upset. She was concerned that the antibiotics not being coated was the reason for her stomach upset. She was advised to stop the bactrim and flagyl at that time. Today she complains of being unsteady on her feet. No fevers or abdominal pain. No diarrhea or vomiting. Still with low appetite. Trying to drink water. 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 Apply to under breasts and belly 60 g 1 Boost Oral Liquid Take by mouth daily. Vitamin D3 25 MCG (1000 UT) Oral Tablet (Vitamin D3) Take 1 Tablet by mouth in the morning. CPAP every night at bedtime. Procrit 39695 UNIT/ML Injection Solution Inject 10,000 units subcutaneous every 4 weeks, 84-day supply. 3 mL 3 BD TB Syringe 27G X 1/2" 1 ML (Tuberculin Syringe) Use to inject Procrit monthly or as directed 3 Each 1 OneTouch Verio In Vitro Strip (Glucose [...] for 2 weeks. Then use twice weekly. (Patient not taking: Reported on 02/15/2024) 42.5 g 3 Ferrous Sulfate 325 (65 Fe) MG Oral Tablet (Feosol) Take 1 Tablet by mouth daily. 90 Tablet 1 Ondansetron 4 MG Oral Tablet Disintegrating (Zofran) Place 1 Tablet on tongue every 8 hours as needed for Nausea. dissolve on tongue. 30 Tablet 1 Veltassa 8.4 GM Oral Packet (Patiromer Sorbitex Calcium) Take 1 Packet by mouth every other day. 30Each 3 Levothyroxine Sodium 75 MCG Oral Tablet (Levoxyl) TAKE 1 TABLET DAILY FIRST THING IN THE MORNING 90Tablet 3 amLODIPine Besylate 2.5 MG Oral Tablet (Norvasc) Take 1 Tablet by mouth in the morning. 30 Tablet 2 Losartan Potassium 25 MG Oral Tablet (Cozaar) Take 1 Tablet by mouth in the morning. 30 Tablet 2 No current facility-administered medications for this visit. Current and discharge medications have been reconciled. Review of patient's allergies indicates: Allergen Reactions Ciprofloxacin Rash Rash with first IV dose in hospital Neville Inhibitors Cough Lisinopril causes cough Metformin Diarrhea OBJECTIVE: BP 144/82 | Pulse 55 | Temp 36.5 C (97.7 F) | Ht 1.651 m (5' 5") | Wt 78 kg (171 lb 14.4 oz) | SpO2 95% | BMI 28.61 kg/m | BSA 1.89 m Review Of Systems: Skin: pt denies Eyes: negative Ears/Nose/Throat: negative Respiratory: pt denies:, cough, sputum, wheezing, and dyspnea on exertion Cardiovascular: pt denies:, palpitations, and chest pain Gastrointestinal: pt. denies:, abdominal pain, nausea, heartburn, diarrhea Genitourinary: negative Musculoskeletal: pt denies significant joint pain or stiffness Neurologic: slightly unsteady gait Psychiatric: negative Hematologic/Lymphatic/Immunologic: negative Endocrine: negative PHYSICAL EXAM: GENERAL: alert, NAD EYES: PERRL, EOMI, conjunctiva are pink and non-injected, sclera clear EARS: External ears normal NOSE: no mucosal erythema, no mucosal edema, no purulent discharge OROPHARYNX: no exudate, no erythema, lips, buccal mucosa moist and without pallor, tongue normal, dentition normal NECK: supple, no adenopathy, thyroid normal size, non-tender, without nodularity HEART: regular rate & rhythm, no murmurs and no gallops LUNGS: CTAB. No wheezing, crackles, or rhonchi. Inspirations non-labored, no retractions. ABDOMEN: Abdomen soft, non-tender. Bowel sounds present. No masses or organomegaly SKIN: Skin color, texture, turgor are normal, no rashes or significant lesions NEURO: alert & oriented x 3 with fluent speech PSYCH: appropriately dressed, logical thought MSK: Normal Strength ASSESSMENT: Hospital discharge follow-up (Primary) - DISCH MED RECON CUR MED LIS Diverticulitis of colon - BASIC METABOLIC PANEL; Future; Expected date: 01/29/2024 - CBC WITH WBC DIFFERENTIAL; Future; Expected date: 01/29/2024 Hypertensive urgency Type 2 diabetes mellitus with hemoglobin A1c goal of less than 8.0% (HCC) Hypothyroidism, unspecified type DORIS on CPAP HTN, goal below 130/80 Gastroesophageal reflux disease, unspecified whether esophagitis present Mild dementia without behavioral disturbance, psychotic disturbance, mood disturbance, or anxiety, unspecified dementia type (HCC) Follow Up: follow up as needed PLAN: Labs today and hold trulicity x 1 week for nausea (don't take her shot today) Follow up as needed. I spent a total of 30-39 minutes (exact time 30 mins) minutes on the date of service in preparation, delivery, and documentation of the care provided to Ekta Francisco excluding any time spent in performance of separately billed services. JEWEL Pimentel documented in this encounter Nursing Notes * Nataliia Snell LPN - 01/29/2024 10:05 AM EDT The patient has been properly identified by confirmation of name and date of . Chief Complaint Patient presents with Hospital Follow-Up [facility]-- 03-20 [facility]-- 01/22 Pt then went back to [facility] on 01-26. Pt still feeling uneasy, unsteady, fatigued. NO abd pain or diarrhea. documented in this encounter Plan of Treatment Upcoming Encounters Date Type Department Care Team (Late st Contact Info) Description 02/26/2024 9:50 AM EDT Laboratory Laboratory, [place] [address] [place] [address] [facility] [address] [place] [address] 02/27/2024 9:30 AM EDT Pharmacy Pharmacy, [place] [address] [place] [address] Clinic, [place] [address] [place] [address] 02/29/2024 10:20 AM EDT Office Visit [facility] [address] [address] Joyce Miner CRNP [address] [place] [address] 07/03/2024 3:20 PM EST Office Visit [facility] [address] [place] [address] Milton Balderas MD [address] [place] [address] 01/30/2025 10:00 AM EDT Office Visit Sleep Disorders Ctr [facility] [address] [place] [phone] Lucila Flanagan CRNP [address] [place] [address] Health Maintenance Due Date Last Done Comments Adult Wellness Visit 12/25/2021 12/25/2020 COVID-19 Vaccine ( season) 2024 03/15/2021, 07/15/2020, 06/17/2020 Diabetic Foot Exam 05/25/2024 05/25/2023, 0 08/18/2021, [...] history exists Influenza Vaccine (FLU shot) Completed 02/2024, 01/17/2023, 03/24/2022, Additional history exists HPV (Gardasil) Vaccine Aged [...] Not on filedocumented as of this encounter Results * (ABNORMAL) BASIC METABOLIC PANEL (01/29/2024 10:40 AM EDT) BUN 19 6 - 20 mg/dL 01/29/2024 1:47 PM EDT [facility] CREATININE 1.7(H) 0.5 - 1.0 mg/dL 01/29/2024 1:47 PM EDT [facility] EGFR 30(L) >=60 mL/min 01/29/2024 1:47 PM EDT [facility] Comment:eGFR is calculated b ased on the CKD-EPI 2020 equation. SODIUM 140 135 - 146 mmol/L 01/29/2024 1:47 PM EDT [facility] POTASSIUM 4.5 3.5 - 5.1 mmol/L 01/29/2024 1:47 PM EDT [facility] CHLORIDE 103 98 - 107 mmol/L 01/29/2024 1:47 PM EDT [facility] CO2 24 22 - 32 mmol/L 01/29/2024 1:47 PM EDT [facility] ANION GAP 13 7 - 15 mmol/L 01/29/2024 1:47 PM EDT [facility] GLUCOSE 249(H) 70 - 120 mg/dL 01/29/2024 1:47 PM EDT [facility] CALCIUM 9.8 8.4 - 10.2 mg/dL 01/29/2024 1:47 PM EDT [facility] Blood Venous blood specimen / Unknown Venipuncture / Unknown 01/29/2024 10:40 AM EDT 01/29/2024 10:40 AM EDT Laurita HOLLOWAY LAB BLOOD ORDERABL ES [facility] [address] [place] [address] documented in this encounter Visit Diagnoses Diagnosis Hospital discharge follow-up- Primary Other follow-up examination Diverticulitis of colon Diverticulitis of colon (without mention of hemorrhage) Hypertensive urgency Unspecified essential hypertension Type 2 diabetes mellitus with hemoglobin A1c goal of less than 8.0% (HCC) Hypothyroidism, unspecified type DORIS on CPAP Obstructive sleep apnea (adult) (pediatric) HTN, goal below 130/80 Unspecified essential hypertension Gastroesophageal reflux disease, unspecified whether esophagitis present Mild dementia without behavioral disturbance, psychotic disturbance, mood disturbance, or anxiety, unspecified dementia type (HCC) documented in this encounter Additional Health Concerns Infection Onset Date Last Indicated Resolved Time ESBL 12/07/2023 12/07/2023 02/05/2024 12:2 1 AM EDT documented as of this encounter Care Teams Singe Winder Relationship Specialty Start Date End Date Milton Balderas MD [address] [place] [address] PCP - General Family Medicine 10/13/20 documented as of this encounter
--- OUTSIDE RECORDS SUMMARY | 2024-02-22 12:37 | External Medical Summary | Summary of Care ---
Author Name Unknown Organization [facility] Address [address] [place] [address] Phone [phone] Care Team Providers Care Ball Winder Name Role Phone Milton Balderas MD Primary Care Provider + Reason for Visit * Reason Onset Date Comments Appointment 02/12/2024 Encounter Details Date Type Department Care Team (Late st Contact Info) Description 02/12/2024 Telephone Nephrology, [address] [place] [address] Neelam Hilliard MD [address] [facility] [address] Appointment Allergies Active Allergy Reactions Criticality Noted Date Comments Neville Inhibitors Cough 09/29/2010 Lisinopril causes cough Ciprofloxacin Rash Medium 05/03/2014 Rash with first IV dose in hospital Metformin Diarrhea 09/29/2010 documented as of this encounter (statuses as of 02/13/2024) Medications Medication Sig Dispensed Refills Start Date [...] CHEW) 90 Tablet 3 06/20/2022 Active Nystatin 488704 UNIT/GM External Powder (Nystop)Indications: Tinea corporis Apply [...] CPAP every night at bedtime. Active Procrit 00537 UNIT/ML Injection SolutionIndications: Anemia of chronic renal [...] as of this encounter (statuses as of 02/13/2024) Active Problems Problem Noted Date Diagnosed Date [...] Found on barium swallow, 01/25/2010 at [facility] DORIS on CPAP 11/10/2010 Overview: Sleep study on 12/24/2009, [facility], Cpap 8, flex setting 3 AHP ICD-10 update of inactive term History of basal cell cancer 11/10/2010 Overview: BCC, left neck, 12/24/2009 ICD-10 update of inactive term HTN, goal below 130/80 09/29/2010 Dyslipidemia, goal LDL below 100 09/29/2010 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 Pernicious anemia Hypothyroidism GERD (gastroesophageal reflux disease) documented as of this encounter (statuses as of 02/13/2024) Resolved Problems Problem Noted Date Diagnosed Date [...] as of this encounter (statuses as of 02/13/2024) Immunizations Name Administration Dates Next Due COVID-19 mRNA, LNP-s, No Pre serve, 2-Dose Series (Giveter) 03/15/2021,07/15/2020,06/17/2020 Pneumococcal Conjugate Vacc, 13 Valent (Prevnar) [...] Telephone Encounter - Rochelle Saldivar LPN - 02/12/2024 11:56 AM EDT Pt checked in today at 0900 for 1300 apt Spoke with patient and family who states was told 02/09/24 via telephone message that apt was for 1000 Pt not feeling well does not want to wait until 1300 Pt will be rescheduled Raised Printer please arrange follow documented in this encounter Plan of Treatment Upcoming Encounters Date Type Department Care Team (Late st Contact Info) Description 02/15/2024 1:00 PM EDT Office Visit Nephrology, [facility] [address] [place] [address] Neelam Hilliard MD [address] [place] [address] 02/26/2024 9:50 AM EDT Laboratory Laboratory, [address] [phone] [address] 02/27/2024 9:30 AM EDT Pharmacy Pharmacy, [place] [address] [place], [place] [id number] [facility] [address] [place] [address] 02/29/2024 10:20 AM EDT Office Visit Family Practice [facility] [address] [facility] [place] [address] Joyce Miner CRNP [address] [place] [address] 07/03/2024 3:20 PM EST Office Visit Family Practice [facility] [address] [place] [address] Milton Balderas MD [address] [place] [address] 01/30/2025 10:00 AM EDT Office Visit Sleep Disorders Ctr [facility] [address] [place] [phone] Lucila Flanagan CRNP [address] [place] [address] Health Maintenance Due Date Last Done Comments [...] filedocumented as of this encounter Care Teams Ball Winder Relationship Specialty Start Date End Date Milton Balderas MD [address] [place] [address] PCP - General Family Medicine 10/13/20 documented as of this encounter
--- OUTSIDE RECORDS SUMMARY | 2024-02-22 12:38 | External Medical Summary | Summary of Care ---
Author Name Unknown Organization [facility] Address [address] [place] [address] Phone [phone] Care Team Providers Care Fisher Name Role Phone Milton Balderas MD Primary Care Provider + Reason for Visit * Reason Comments Outpatient Testing Encounter Details Date Type Department Care Team (Late st Contact Info) Description 01/29/2024 10:50 AM EDT Laboratory Laboratory, [facility] [address] [place] [phone] [facility] [address] [place] [address] Diverticulitis of colon Allergies Active Allergy Reactions Criticality Noted Date Comments Neville Inhibitors Cough 09/29/2010 Lisinopril causes cough Ciprofloxacin Rash Medium 05/03/2014 Rash with first IV dose in hospital Metformin Diarrhea 09/29/2010 documented as of this encounter (statuses as of 01/29/2024) Medications Medication Sig Dispensed Refills Start Date [...] CHEW) 90 Tablet 3 06/20/2022 Active Nystatin 720044 UNIT/GM External Powder (Nystop)Indications: Tinea corporis Apply [...] Sorbitex Calcium)Indications: End stage renal disease (HCC) take 1 packet every other day 30 Each 3 12/26/2022 Active CPAP every night at bedtime. Active Levothyroxine Sodium 75 MCG Oral Tablet (Levoxyl) TAKE 1 TABLET DAILY FIRST THING IN THE MORNING 90 Tablet 3 02/14/2023 Active Procrit 46955 UNIT/ML Injection SolutionIndications: Anemia of chronic renal [...] on tongue. 30 Tablet 1 01/24/2024 Active documented as of this encounter (statuses as of 01/29/2024) Active Problems Problem Noted Date Diagnosed Date [...] Found on barium swallow, 01/25/2010 at [facility] D[place] on CPAP 11/10/2010 Overview: Sleep study on 12/24/2009, [facility], Cpap 8, flex setting 3 AHP ICD-10 update of inactive term History of basal cell cancer 11/10/2010 Overview: BCC, left neck, 12/24/2009 ICD-10 update of inactive term HTN, goal below 130/80 09/29/2010 Dyslipidemia, goal LDL below 100 09/29/2010 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 Pernicious anemia Hypothyroidism GERD (gastroesophageal reflux disease) documented as of this encounter (statuses as of 01/29/2024) Resolved Problems Problem Noted Date Diagnosed Date [...] as of this encounter (statuses as of 01/29/2024) Immunizations Name Administration Dates Next Due COVID-19 [...] IM 03/03/2016,02/12/2015 03/03/2017 Seasonal Influenza, Trivalen t, (IIV3), with Preserv, (Fluzone) 02/10/2014,02/05/2013,01/25/2012,01/06,03/15/2010 Seasonal Influenza, Trivalen t, Adjuvanted, 65+ YRS, [...] Team (Late st Contact Info) Description 01/30/2024 8:30 AM EDT Office Visit Sleep Disorders Ctr [facility] [address] [place] [phone] Lucila Flanagan CRNP [address] [place] [address] 02/01/2024 2:30 PM EDT Office Visit Nephrology, Alisia Soriano [address] [place] [address] ZemaKamini wolf PA-C [address] [place] [address] 02/26/2024 9:50 AM EDT Laboratory Laboratory, [address] [phone] [place] [address] [place] [address] 02/27/2024 9:30 AM EDT Pharmacy Pharmacy, [place] [address] [place], [place] [id number] Clinic, [place] [address] [place], [place] [phone] 02/29/2024 10:20 AM EDT Office Visit Family Practice [facility] [address] [address] Joyce Miner CRNP [address] [place] [address] 07/03/2024 3:20 PM EST Office Visit Family [facility] [address] [place] [address] Milton Balderas MD [address] [place] [address] Pending Results Name Type Priority Associated Diagnoses Date /Time BASIC METABOLIC PANEL Lab Routine Diverticulitis of colon 01/29/2024 10:40 AM EDT CBC WITH WBC DIFFERENTIAL Lab Routine Diverticulitis of colon 01/29/2024 10:40 AM EDT CBC Lab Routine Diverticulitis of colon 01/29/2024 10:40 AM EDT DIFFERENTIAL, AUTOMATED Lab Routine Diverticulitis of colon 01/29/2024 10:40 AM EDT Health Maintenance Due Date Last [...] as of this encounter Visit Diagnoses Diagnosis Diverticulitis of colon Diverticulitis of colon (without mention of hemorrhage) documented in this encounter Additional Health Concerns Infection Onset Date Last Indicated Resolved Time ESBL 12/07/2023 12/07/2023 documented as of this encounter Care Teams Fisher Relationship Specialty Start Date End Date Milton Balderas MD [address] [place] [address] PCP - General Family Medicine 10/13/20 documented as of this encounter
--- OUTSIDE RECORDS SUMMARY | 2024-02-22 12:38 | External Medical Summary | Summary of Care ---
Author Name Unknown Organization [facility] Address [address] [place] [address] Phone [phone] Care Team Providers Care Belly Dump Driver Name Role Phone Milton Balderas MD Primary Care Provider + Reason for Visit * Reason Comments Follow Up Encounter Details Date Type Department Care Team (Late st Contact Info) Description 01/30/2024 8:30 AM EDT Office Visit Sleep Disorders Ctr [facility] [address] [place] [phone] Lucila Flanagan CRNP [address] [place] [address] DORIS on CPAP* Allergies Active Allergy Reactions Criticality Noted Date Comments Neville Inhibitors Cough 09/29/2010 Lisinopril causes cough Ciprofloxacin Rash Medium 05/03/2014 Rash with first IV dose in hospital Metformin Diarrhea 09/29/2010 documented as of this encounter (statuses as of 01/30/2024) Medications Medication Sig Dispensed Refills Start Date [...] CHEW) 90 Tablet 3 06/20/2022 Active Nystatin 952924 UNIT/GM External Powder (Nystop)Indications: Tinea corporis Apply [...] MORNING 90 Tablet 3 02/14/2023 Active Procrit 11497 UNIT/ML Injection SolutionIndications: Anemia of chronic renal [...] as of this encounter (statuses as of 01/30/2024) Active Problems Problem Noted Date Diagnosed Date [...] Overview: Found on barium swallow, 01/25/2010 at [facility] DORIS on CPAP 11/10/2010 Overview: Sleep study on 12/24/2009, [facility], Cpap 8, flex setting 3 AHP ICD-10 update of inactive term History of basal cell cancer 11/10/2010 Overview: BCC, left neck, 12/24/2009 ICD-10 update of inactive term HTN, goal below 130/80 09/29/2010 Dyslipidemia, goal LDL below 100 09/29/2010 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 Pernicious anemia Hypothyroidism GERD (gastroesophageal reflux disease) documented as of this encounter (statuses as of 01/30/2024) Resolved Problems Problem Noted Date Diagnosed Date [...] as of this encounter (statuses as of 01/30/2024) Immunizations Name Administration Dates Next Due COVID-19 mRNA, LNP-s, No Pre serve, 2-Dose Series ([employer]) 03/15/2021,07/15/2020,06/17/2020 Pneumococcal Conjugate Vacc, 13 Valent (Prevnar) [...] Sign Reading Time Taken Comments Blood Pressure 140/82 01/30/2024 8:42 AM EDT Pulse 68 01/30/2024 8:42 AM EDT Temperature 36.5 C (97.7 F) 01/30/2024 8:42 AM ED T Respiratory Rate 20 01/30/2024 8:42 AM EDT Oxygen Saturation 96% 01/30/2024 8:42 AM EDT ra, rest Inhaled Oxygen Concentration - - Weight 77.1 kg (170 lb) 01/30/2024 8:42 AM EDT Height 165.1 cm (5' 5") 01/30/2024 8:42 AM EDT Body Mass Index 28.29 01/30/2024 8:42 AM EDT documented in this encounter Progress Notes * Lucila Flanagan CRNP - 01/30/2024 8:35 AM EDT [facility] Ekta Francisco is a 88 year old female seen today for yearly follow-up of mild DORIS with hypoxemia. -10/07/2009 PSG (wt 213 lb): AHI 10, SpO2 <91% for more than 60 minutes -09/08/2014 Titration: CPAP 7 cmH2O, 1 LPM -Noct ox CPAP/RA 09/23/2014 (wt 222 lb): SpO2 <89% 3.5 minutes Interim History: CPAP used nightly, noting ongoing benefit with use. Denies issues causing poor tolerance to treatment. Reports good sleep quality, sleeping about 8 hours. Sleep is refreshing. Naps in recliner chair while watching tv or reading about once a day. No longer driving. Completed overnight oximetry last fall. Results never received. Compliance Data: Report date: last 30 days ending 01/25/2024 % total days used: 93 % days used > 4 hours: 90 Average hours per day used: 7 hours 8 mins Large leak: 2 L/min rAHI: 2 p90/95%: 13 cmH2O Equipment: DME Provider: [facility] Device: [id number] Settings: 11-15 cmH20 Interface Type: FFM Humidifier: used Cleaning: By hand routinely Logan Sleepiness Scale Question 01/30/2024 8:44 AM EDT - Filed by Emelia Llamas LPN What is the chance you will doze off in the following situation? Sitting and reading Slight chance of dozing Watching TV Slight chance of dozing Sitting inactive in a public place, such as a theater or meeting Slight chance of dozing As a passenger in a car for an hour without a break No chance of dozing Lying down to rest in the afternoon when circumstances permit Slight chance of dozing When sitting and talking to someone No chance of dozing When sitting quietly after lunch without alcohol No chance of dozing In a car, while stopped for a few minutes in traffic No chance of dozing Score (range: 0 - 24) 4 Review of Systems Constitutional: Weight stable for the past year Respiratory: Negative for shortness of breath. Cardiovascular: Negative for chest pain. Neurological: Negative for headaches. Problem List: Patient Active Problem List Diagnosis Pernicious anemia [...] Well adult exam PSVT (paroxysmal supraventricular tachycardia) (HCC) Mild dementia without behavioral disturbance, psychotic disturbance, mood disturbance, or anxiety (HCC) Memory loss UTI symptoms Acute confusion Current Medications: Current Outpatient Medications Medication Sig Dispense Refill Ondansetron 4 MG Oral Tablet Disintegrating (Zofran) Place 1 Tablet on tongue every 8 hours as needed for Nausea. dissolve on tongue. 30 Tablet 1 Ferrous Sulfate 325 (65 Fe) MG Oral Tablet (Feosol) Take 1 Tablet by mouth daily. 90 Tablet 1 Estradiol 0.1 MG/GM Vaginal Cream (Estrace) [...] a day. DX E11.9 200 Strip 1 BD TB Syringe 27G X 1/2" 1 ML (Tuberculin Syringe) Use to inject Procrit monthly or as directed 3 Each 1 Procrit 19268 UNIT/ML Injection Solution Inject 10,000 units subcutaneous [...] Oral Liquid Take by mouth daily. Nystatin 175359 UNIT/GM External Powder (Nystop) Apply topically to [...] Capsule Take 1 Cap by mouth daily. nitroglycerin (NITROSTAT) 0.[address] 1 Tablet under the tongue every 5 minutes as needed. BD PEN NEEDLE SHORT U/F 31G X 8 MM USE WITH INSULIN UP TO 4 TIMES DAILY FOR DIABETES 1 Box Dosing Unit 11 ASPIRIN 81 MG PO TABS Take by mouth daily. Indications: takes at night 0 No current facility-administered medications for this visit. Physical Exam: BP 140/82 | Pulse 68 | Temp 36.5 C (97.7 F) (Tympanic) | Resp 20 | Ht 1.651 m (5' 5") | Wt 77.1kg (170 lb) | SpO2 96% Comment: ra, rest | BMI 28.29 kg/m | BSA 1.88 m Constitutional: Alert, oriented and in no acute distress, accompanied by Skin: No abnormal mask markings on face Cardio: Regular rate and rhythm, no murmur Chest: Normal respiratory effort at rest Neuro: Fluent speech Psych: Appropriate mood and affect. Assessment & Plan: Encounter Diagnoses Name Primary? DORIS on CPAP Yes -compliant, therapeutic and benefiting with PAP treatment -continue use of CPAP to include all periods of sleep opportunity -routine cleaning and change of supplies as needed was encouraged -nursing to call [facility] to inquire on overnight oximetry completed Fall 2022 while wearing CPAP -continue to avoid engaging in activities that require full alertness when feeling sleepy or tired Follow-up with Sleep Medicine in 1 year. JEWEL [facility] I spent a total of 30-39 minutes (exact time 30 mins) on the date of service in preparation, delivery, and documentation of the care provided to Ekta Francisco excluding any time spent in the performance of separately billed services. documented in this encounter Nursing Notes * Emelia Llamas LPN - 01/30/2024 8:33 AM EDT Pt here for f/u DORIS on CPAP. DME - [facility] Logan Sleepiness Scale Question 01/30/2024 8:44 AM EDT - Filed by Emelia Llamas LPN What is the chance you will doze off in the following situation? Sitting and reading Slight chance of dozing Watching TV Slight chance of dozing Sitting inactive in a public place, such as a theater or meeting Slight chance of dozing As a passenger in a car for an hour without a break No chance of dozing Lying down to rest in the afternoon when circumstances permit Slight chance of dozing When sitting and talking to someone No chance of dozing When sitting quietly after lunch without alcohol No chance of dozing In a car, while stopped for a few minutes in traffic No chance of dozing Score (range: 0 - 24) 4 documented in this encounter Plan of Treatment Upcoming Encounters Date Type Department Care Team (Late st Contact Info) Description 02/01/2024 2:30 PM EDT Office Visit Nephrology, [facility] [place] [address] [facility] [place] [address] Kamini Hyde PA-C [address] [facility] [place] [address] 02/26/2024 9:50 AM EDT Laboratory Laboratory, [address] [phone] [place] [address] [place] [address] 02/27/2024 9:30 AM EDT Pharmacy Pharmacy, [place] [address] [place] [address] [place] [address] [place] [address] 02/29/2024 10:20 AM EDT Office Visit [facility] [address] [place] [address] Joyce Miner CRNP [address] [place] [address] 07/03/2024 3:20 PM EST Office Visit [facility] [address] [place] [address] Milton Balderas MD [address] [place] [address] 01/30/2025 10:00 AM EDT Office Visit Sleep Disorders Ctr [facility] [address] [place] [phone] Lucila Flanagan CRNP [address] [place] [address] Health Maintenance Due Date Last Done Comments [...] CPAP- Primary Obstructive sleep apnea (adult) (pediatric) documented in this encounter Additional Health Concerns Infection Onset Date Last Indicated Resolved Time ESBL 12/07/2023 12/07/2023 documented as of this encounter Care Teams Belly Dump Driver Relationship Specialty Start Date End Date Milton Balderas MD [address] [place] [address] PCP - General Family Medicine 10/13/20 documented as of this encounter
--- OUTSIDE RECORDS SUMMARY | 2024-02-22 12:38 | External Medical Summary ---
Author Name Unknown Address Unknown Organization [facility] [address] [place] [address] Laboratory Report Ordering Provider Test Date Status TATIANA BHARDWAJ 01/29/2024 10:40:50 Final Observation Date Value Abnormality Reference (Units ) Status WBC, Total 01/29/2024 10:40:50 6.85 4.00-10.8 0 (K/uL) Final RBC 01/29/2024 10:40:50 3.18 3.85-5.15 (M/uL) Final Hemoglobin 01/29/2024 10:40:50 9.7 Below low normal 12 .0-15.3 (g/dL) Final HCT 01/29/2024 10:40:50 29.7 Below low normal 36. 0-45.2 (%) Final MCV 01/29/2024 10:40:50 93.4 81.5-97.5 (fL) Final MCH 01/29/2024 10:40:50 30.5 27.0-34.0 (pg) Final MCHC 01/29/2024 10:40:50 32.7 32.0-36.0 (g/dL) Final RDW 01/29/2024 10:40:50 13.5 11.5-15.5 (%) Final Platelets 01/29/2024 10:40:50 245 140-400 (K /uL) Final MPV 01/29/2024 10:40:50 10.9 6.6-11.1 ( fL) Final Performing Location [facility] 0 - [address] [place] [address]
--- OUTSIDE RECORDS SUMMARY | 2024-02-22 12:38 | External Medical Summary ---
Author Name Unknown Address Unknown Organization [facility] [place] [address] - [address] [place] [address] Laboratory Report Ordering Provider Test Date Status TATIANA BHARDWAJ 01/29/2024 10:40:50 Final Observation Date Value Abnormality Reference (Units ) Status BUN 01/29/2024 10:40:50 19 6-20 (mg/dL) Final Creatinine 01/29/2024 10:40:50 1.7 Above high normal 0.5-1.0 (mg/dL) Final Glomerular filtration rate/1.73 sq M.predicted [Volume Rate/Area] in Serum, Plasma or Blood by Creatinine-based formula (CKD-EPI) 01/29/2024 10:40:50 30 Below low normal >=60 (mL/min) Final eGFR is calculated based on the CKD-EPI 2020 equation. Sodium 01/29/2024 10:40:50 140 135-146 (m mol/L) Final Potassium 01/29/2024 10:40:50 4.5 3.5-5.1 (m mol/L) Final Cl 01/29/2024 10:40:50 103 98-107 (mm ol/L) Final CO2 01/29/2024 10:40:50 24 22-32 (mmo l/L) Final Anion gap 01/29/2024 10:40:50 13 7-15 (mmol /L) Final Glucose 01/29/2024 10:40:50 249 Above high normal 70 -120 (mg/dL) Final Calcium 01/29/2024 10:40:50 9.8 8.4-10.2 ( mg/dL) Final Performing Location [facility] [place] [address] [place] [address]
--- OUTSIDE RECORDS SUMMARY | 2024-02-22 12:38 | External Medical Summary | Summary of Care ---
Author Name Unknown Organization [facility] Address [address] [place] [address] Phone [phone] Care Team Providers Care Space And Storage Clerk Name Role Phone Milton Balderas MD Primary Care Provider + Reason for Visit * Reason Onset Date Comments Test Results 01/29/2024 Encounter Details Date Type Department Care Team (Late st Contact Info) Description 01/29/2024 Telephone Family Practice [facility] [address] [facility] [place] [address] Laurita Engle CRNP [address] [place] [address] Test Results Allergies Active Allergy Reactions [...] CHEW) 90 Tablet 3 06/20/2022 Active Nystatin 337746 UNIT/GM External Powder (Nystop)Indications: Tinea corporis Apply [...] MORNING 90 Tablet 3 02/14/2023 Active Procrit 12879 UNIT/ML Injection SolutionIndications: Anemia of chronic renal [...] swallow, 01/25/2010 at [facility] D[place]IS on CPAP 11/10/2010 Overview: Sleep study on 12/24/2009, [facility], Cpap 8, flex setting 3 AHP ICD-10 [...] encounter Miscellaneous Notes * Telephone Encounter - Margaret Smallwood LPN - 01/30/2024 9:42 AM EDT Patient aware and verbalized understanding * Telephone Encounter - Laurita Engle CRNP - 01/29/2024 2:32 PM EDT Kidney function a little worse on her labs today Please keep scheduled follow up with nephrology on Anemia is stable and unchanged from ER visit Recommend focusing on trying to eat and hydrate as we discussed today at her visit documented in this encounter Plan of Treatment Upcoming Encounters Date Type Department Care Team (Late st Contact Info) Description 02/01/2024 2:30 PM EDT Office Visit Nephrology, [facility] So[place] [address] [place] [address] Kamini Hyde PA-C [address] [place] [address] 02/26/2024 9:50 AM EDT Laboratory Laboratory, [place] [address] [place] [phone] [place] [address] [place] [address] 02/27/2024 9:30 AM EDT Pharmacy Pharmacy[address] [address] Clinic, [place] [address] [place] [address] 02/29/2024 10:20 AM EDT Office Visit [facility] [address] [place] [address] Joyce Miner CRNP [address] [place] [address] 07/03/2024 3:20 PM EST Office Visit [facility] [address] [place] [address] Milton Balderas MD [address] [facility] [place] [address] 01/30/2025 10:00 AM EDT Office Visit [facility] Disorders Ctr [facility] [address] [facility] [place] [phone] Lucila Flanagan CRNP [address] [place] [address] Health Maintenance Due Date Last Done Comments [...] documented as of this encounter Care Teams Space And Storage Clerk Relationship Specialty Start Date End Date Milton Balderas MD [address] [place] [address] PCP - General Family Medicine 10/13/20 documented as of this encounter
--- OUTSIDE RECORDS SUMMARY | 2024-02-22 12:38 | External Medical Summary | Summary of Care ---
Author Name Unknown Organization [facility] Address [address] [place] [address] Phone [phone] Care Team Providers Care Implementation Specialist Name Role Phone Milton Balderas MD Primary Care Provider + Reason for Visit * Reason Comments eRx-Medication Refill Encounter Details Date Type Department Care Team (Late st Contact Info) Description 02/01/2024 Refill [facility]rology, [facility] [place] [address] [facility] [place] [address] Jorge Michel MD [address] [facility] [place] [address] End stage renal disease (HCC) Allergies Active Allergy Reactions Criticality Noted Date Comments Neville Inhibitors Cough 09/29/2010 Lisinopril causes cough Ciprofloxacin Rash Medium 05/03/2014 Rash with first IV dose in hospital Metformin Diarrhea 09/29/2010 documented as of this encounter (statuses as of 02/01/2024) Medications Medication Sig Dispensed Refills Start Date [...] CHEW) 90 Tablet 3 3 Active Nystatin 711679 UNIT/GM External Powder (Nystop)Indication s:Tinea corporis Apply [...] MORNING 90 Tablet 3 3 Active Procrit 75460 UNIT/ML Injection SolutionIndication s:Anemia of chronic renal [...] (Patiromer Sorbitex Calcium)Indication s:End stage renal disease ([facility]) TAKE 1 PACKET EVERY OTHER DAY 30 Each 3 4 Active Veltassa 8.4 GM Oral Packet (Patiromer Sorbitex Calcium)Indication s:End stage renal disease ([facility]) take 1 packet every other day 30 Each 3 3 02/01/20 24 Discontinued documented as of this encounter (statuses as of 02/01/2024) Active Problems Problem Noted Date Diagnosed Date [...] Found on barium swallow, 01/25/2010 at [facility] DORIS on CPAP 11/10/2010 Overview: Sleep study on 12/24/2009, [facility], Cpap 8, flex setting 3 AHP ICD-10 update of inactive term History of basal cell cancer 11/10/2010 Overview: BCC, left neck, 12/24/2009 ICD-10 update of inactive term HTN, goal below 130/80 09/29/2010 Dyslipidemia, goal LDL below 100 09/29/2010 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 Pernicious anemia Hypothyroidism GERD (gastroesophageal reflux disease) documented as of this encounter (statuses as of 02/01/2024) Resolved Problems Problem Noted Date Diagnosed Date [...] as of this encounter (statuses as of 02/01/2024) Immunizations Name Administration Dates Next Due COVID-19 mRNA, LNP-s, No Pre serve, 2-Dose Series ([employer]) 03/15/2021,07/15/2020,06/17/2020 Pneumococcal Conjugate Vacc, 13 Valent (Prevnar) [...] encounter Miscellaneous Notes * Telephone Encounter - Jorge Michel MD - 02/01/2024 4:06 PM EDTSigned Prescriptions: Disp Refills Veltassa 8.4 GM Oral Packet (Patiromer Sor*30 Each3 Sig: TAKE 1 PACKET EVERY OTHER DAY Authorizing Provider: JORGE MICHEL * Telephone Encounter - Idalia Smith RN - 02/01/2024 12:31 PM EDTPending Prescriptions: Disp Refills Veltassa 8.4 GM Oral Packet (Patiromer Sor*30 Each3 Sig: TAKE 1 PACKET EVERY OTHER DAY * Telephone Encounter - Idalia Smith RN - 02/01/2024 12:29 PM EDT Prescription request received from pharmacy pending. Please authorize. Last OV 08/31/23 Next OV pt cancelled visit for today. documented in this encounter Plan of Treatment Upcoming Encounters Date Type Department Care Team (Late st Contact Info) Description 02/26/2024 9:50 AM EDT Laboratory Laboratory, [place] [address] [place] [address] [facility] [address] [place] [address] 02/27/2024 9:30 AM EDT Pharmacy Pharmacy, [address] [address] 02/29/2024 10:20 AM EDT Office Visit [facility] [address] [place] [address] [facility]er [facility] [place] [address] 07/03/2024 3:20 PM EST Office Visit [facility] [address] [place] [address] Milton Balderas MD [address] [place] [address] 01/30/2025 10:00 AM EDT Office Visit Sleep Disorders Ctr [facility] [address] [place] [phone] Lucila Flanagan CRNP [address] [place] [address] Health Maintenance Due Date Last Done Comments [...] as of this encounter Visit Diagnoses Diagnosis End stage renal disease (HCC) End stage renal disease documented in this encounter Additional Health Concerns Infection Onset Date Last Indicated Resolved Time ESBL 12/07/2023 12/07/2023 documented as of this encounter Care Teams Implementation Specialist Relationship Specialty Start Date End Date Milton Balderas MD [address] [place] [address] PCP - General Family Medicine 10/13/20 documented as of this encounter
--- OUTSIDE RECORDS SUMMARY | 2024-02-22 12:38 | External Medical Summary | Summary of Care ---
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 Name Role Phone Milton Balderas MD Primary Care Provider + Reason for Visit * Reason Onset Date Comments Durable Medical Equipment 01/30/2024 CPAP s upplies Encounter Details Date Type Department Care Team (Late st Contact Info) Description 01/30/2024 Telephone Sleep Disorders Ctr [facility] [address] [facility] [place] [id number] Lucila Flanagan CRNP [address] [place] [address] Durable Medical Equipment (CPAP supplies ) Allergies Active Allergy Reactions Criticality Noted Date [...] CHEW) 90 Tablet 3 06/20/2022 Active Nystatin 667307 UNIT/GM External Powder (Nystop)Indications: Tinea corporis Apply [...] MORNING 90 Tablet 3 02/14/2023 Active Procrit 23114 UNIT/ML Injection SolutionIndications: Anemia of chronic renal [...] Overview: Found on barium swallow, 01/25/2010 at [facility] DORIS on CPAP 11/10/2010 Overview: Sleep study on 12/24/2009, [facility], Cpap 8, flex setting 3 AHP [...] mRNA, LNP-s, No Pre serve, 2-Dose Series ([employer]Star) 03/15/2021,07/15/2020,06/17/2020 Pneumococcal Conjugate Vacc, 13 Valent (Prevnar) [...] encounter Miscellaneous Notes * Telephone Encounter - Christine Salazar OSA - 01/30/2024 9:43 AM EDT DME order for CPAP Supplies submitted to [email or web address]. documented in this encounter Plan of Treatment Upcoming Encounters Date Type Department Care Team (Late st Contact Info) Description 02/01/2024 2:30 PM EDT Office Visit Nephrology, [facility] [address] [place] [address] Kamini Hyde PA-C [address] [facility] [place] [address] 02/26/2024 9:50 AM EDT Laboratory Laboratory, [address] [phone] [address] 02/27/2024 9:30 AM EDT Pharmacy Pharmacy, [place] [address] [place] [address] Clinic, [place] [address] [place] [address] 02/29/2024 10:20 AM EDT Office Visit Family Practice [facility] [address] [place] [address] Joyce Miner CRNP [address] [place] [address] 07/03/2024 3:20 PM EST Office Visit Family Practice [facility] [address] [place] [address] Milton Balderas MD [address] [place] [address] 01/30/2025 10:00 AM EDT Office Visit Sleep Disorders Ctr [facility] [address] [phone] Lucila Flanagan CRNP [address] [address] Health Maintenance Due Date Last Done Comments [...] documented as of this encounter Care Teams Cake Press Operator Helper Relationship Specialty Start Date End Date Milton Balderas MD [address] [place] [address] PCP - General Family Medicine 10/13/20 documented as of this encounter
[2024-02-22] MEDS: CLOTRIMAZOLE 1% CR 15 GM TUBE EXT SCH (13:45)
--- NOTE | 2024-02-22 15:04 | Hospitalist Progress Note ---
Date of Service February 22, 2024 Assessment & Plan (1) Generalized weakness: Plan: Generalized weakness Likely secondary to UTI H/O ESBL --CT ABD:No acute findings in the abdomen or pelvis. --Urine culture pending Empirically on ertapenem Gentle IV fluids PT OT, fall precautions Hypomagnesemia Replete and monitor Tinea cruris Started on clotrimazole Hypertension Continue amlodipine, losartan Monitor BP Hypothyroidism Continue levothyroxine DORIS on CPAP DM II Last HbA1c 6.5 Hold p.o. medications Continue insulin while hospitalized Monitor BGs CKD III Monitor renal function Avoid nephrotoxic agents as able Chronic anemia Hb at baseline monitor H/O Dementia Past tobacco abuse PSVT Continue home meds DVT Px Heparin SQ Code Status Full code Admission and Anticipated Discharge Date Admission Date: February 21, 2024 Subjective Patient is seen and examined at bedside States having generalized weakness Also reports groin rash Denies any dysuria, hematuria Also denies any chest pain, dyspnea, abdominal pain Family at bedside No other complaints Review of Systems Review of Systems: All systems reviewed & are unremarkable except as noted in Subjective Physical Exam Physical Exam: Physical Exam: Vitals signs as noted above General Appearance:Moderately built and nourished, no apparent distress Head: normocephalic, Atraumatic Eyes: normal inspection, EOMI Neck: supple, Trachea midline Respiratory/Chest: Normal breath sounds, CTA, No accessory muscle use Cardiovascular: S1, S2, No murmur Abdomen/GI:Soft, Non tender, Bowel sounds present+Groin rash Extremities/Musculoskeletal:normal inspection, Trace edema Neurologic/Psych:AAOX3, grossly no focal neurological deficits Skin: normal color, warm Results & Data Results & Data Vital Signs (Past 12 Hours) Vital Signs Temp Pulse Pulse Resp BP Pulse Ox O2 Del Method 02/22/24 14:29 61 02/22/24 11:37 36.5 C 63 16 111/65 95 Room Air 02/22/24 07:24 36.9 C 67 18 126/58 L 94 Room Air 02/22/24 07:16 73 Laboratory Results Short CBC 02/21/24 02/22/24 Range/Units 16:32 07:16 WBC 8.86 6.99 (4.8-10.8) K/ul Hgb 11.3 L 10.2 L (12.0-16.0) g/dl Hct 34.1 L 30.7 L (37.0-47.0) % Plt Count 192 172 (130-400) K/uL BMP 02/21/24 02/22/24 16:32 07:16 Sodium 139 139 Potassium 4.1 4.1 Chloride 106 107 Carbon Dioxide 25 27 BUN 30 H 27 H Creatinine 1.36 H 1.41 H Glucose 177 H 111 H Calcium 10.2 9.3 Liver Function 02/21/24 Range/Units 16:32 Total Bilirubin 0.8 (0.2-1.0) mg/dl AST 38 (13-39) U/L ALT 41 (7-52) U/L Alkaline Phosphatase 53 (34-104) U/L Albumin 4.0 (3.4-5.0) gm/dl Urine 02/21/24 Range/Units 19:20 Urine Color Yellow Urine Appearance Clear (Clear) Urine pH 5.0 (4.5-7.5) Ur Specific [place] 1.014 (1.000-1.030) Urine Protein 2+ H (Negative) Urine Glucose (UA) Negative (Negative)
--- OUTSIDE RECORDS SUMMARY | 2024-02-22 15:44 | External Medical Summary | Summary of Care ---
Author Name Unknown Organization [facility] Address [address] [place] [address] Phone [phone] Care Team Providers Care Unionmelt Operator Name Role Phone Milton De Luna MD Primary Care Provider + Reason for Referral * Evaluate & Treat - Unlimited Visits (Within 10 days (routine)) - Authorized Specialty Diagnoses / Procedures Referred By Contac t Referred To Contact Pharmacist / Pharmacy Diagnoses Uncontrolled hypertension, stage 1 Neelam Hilliard MD [address] [place] [address] Referral ID Status Reason Start Date Expiration Date Visits Requested Visits Authorized [id number] Authorized Specialty Services Required 4 08/13/2024 99 99 Question Answer Referral Priority Within 10 days (routine) Where should this appointment be scheduled? [facility] Referring Provider Role: Specialist Specialty: Nephro Reason for Referral: HTN Goal BP: < 130/80 - follow [facility] too Comments Pharmacist Medication Therapy Management: Minimum frequency patient should be seen in person for medication management: as appropriate per clinical condition and patient status By my signature, I understand that my patient Ekta Francisco will have her medication therapy managed by the [facility] Medication Therapy [facility] ([facility]) per established policies, procedures, and protocols. I also certify that this referral may serve as an initiation of service for the management of drug therapy in the above noted patient. [facility] providers will be responsible for scheduling patient visits, obtaining appropriate laboratory studies, and adjusting medication management therapy per patient's need, in addition to those roles spelled out in the clinic policy, procedures, and drug management protocols. I understand that the service provided by the [facility] is voluntary and have informed patient that they can refuse the service at their discretion. I am aware that the [facility] Clinic will provide me with a copy of the patient encounter via my [employer]. I authorize the [facility] to carry out these activities on my behalf. I consider this program to be a necessary part of the patient's medical care. Neelam Hilliard MD Reason for Visit * Reason Onset Date Comments Chronic Kidney Disease (CKD) Medication Administration 02/15/2024 Flu an d/or Pneumo Inj Encounter Details Date Type Department Care Team (Late st Contact Info) Description 02/15/2024 1:00 PM EDT Office Visit Nephrology, [facility] [address] [facility] [place] [address] Neelam Hilliard MD [address] [place] [address] Uncontrolled hypertension, stage 1*; Need for prophylactic vaccination and inoculation against influenza; Stage 3b chronic kidney disease (HCC); Hypomagnesemia; Albuminuria; Anemia of chronic renal failure, unspecified stage; HTN, goal below 130/80 Allergies Active Allergy Reactions Criticality Noted Date Comments Neville Inhibitors Cough 09/29/2010 Lisinopril causes cough Ciprofloxacin Rash Medium 05/03/2014 Rash with first IV dose in hospital Metformin Diarrhea 09/29/2010 documented as of this encounter (statuses as of 02/21/2024) Medications Medication Sig Dispensed Refills Start Date [...] CHEW) 90 Tablet 3 06/20/2022 Active Nystatin 870283 UNIT/GM External Powder (Nystop)Indications: Tinea corporis Apply [...] CPAP every night at bedtime. Active Procrit 26988 UNIT/ML Injection SolutionIndications: Anemia of chronic renal [...] twice weekly. 42.5 g 3 10/27/2023 Active Additional Information Patient not taking.Reported on [...] THE MORNING 90 Tablet 3 02/08/2024 Active amLODIPine Besylate 2.5 MG Oral Tablet (Norvasc) Take 1 Tablet by mouth in the morning. 30 Tablet 2 02/15/2024 Active Losartan Potassium 25 MG Oral Tablet (Cozaar) Take 1 Tablet by mouth in the morning. 30 Tablet 2 02/15/2024 Active documented as of this encounter (statuses as of 02/21/2024) Active Problems Problem Noted Date Diagnosed Date Memory loss 12/07/2023 UTI symptoms 12/07/2023 Acute confusion 12/07/2023 Mild dementia without behavi oral disturbance, psychotic disturbance, mood disturbance, or anxiety 05/25/2023 PSVT (paroxysmal supraventricular tachycardia) 0 07/15/2022 Well adult exam 07/28/2021 Overview: 02/27 colon-poor prep, f/u not rec given age 2020 colon WNL Stage 3b chronic kidney disease 06/01/2021 History [...] as of this encounter (statuses as of 02/21/2024) Resolved Problems Problem Noted Date Diagnosed Date [...] as of this encounter (statuses as of 02/21/2024) Immunizations Name Administration Dates Next Due COVID-19 mRNA, LNP-s, No Pre serve, 2-Dose Series (BioVentrix) 03/15/2021,07/15/2020,06/17/2020 Pneumococcal Conjugate Vacc, 13 Valent (Prevnar) 08/13/2014 Pneumococcal Polysaccharide PPV23 (Pneumovax) 09/29/2010 RSV Vac., Recomb, Adjuvant, PF,0.5 Ml (Arexvy) 06/05/2023 Seasonal Influenza Vac., MDV , IM, 0.5 mL (Fluzone) 02/10/2014,02/05/2013,01/25/2012,01/06,03/15/2010 Seasonal Influenza, High Dos e, Trivalent, PF, IM (Fluzone HD) 02/15/2024 Seasonal Influenza, PF, 6 M & above, [...] Sign Reading Time Taken Comments Blood Pressure 165/82 02/15/2024 1:13 PM EDT Pulse 70 02/15/2024 1:13 PM EDT Temperature 36.5 C (97.7 F) 02/15/2024 1:06 PM ED T Respiratory Rate 18 02/15/2024 1:06 PM EDT Oxygen Saturation 97% 02/15/2024 1:06 PM EDT Inhaled Oxygen Concentration - - Weight 75.8 kg (167 lb) 02/15/2024 1:06 PM EDT Height - - Body Mass Index 27.79 01/30/2024 8:42 AM EDT documented in this encounter Patient Instructions * Patient Instructions* Neelam Hilliard MD - 02/15/2024 1:12 PM EDT -start losartan 25 mg daily -start amlodipine 2.5 mg daily -no change to other medications today -eat a low sodium diet (less than 2000 mg or 1/2 tsp) daily -do a 3 day BP log using good technique >> check 2X in AM and 2X in PM each about a minute apart; after 3-4 days get the list to me or to your [facility] pharmacist -will get an [facility] pharmacist to work with you on high blood pressure like Will does for anemia -after about 10-14 days on new medicines, check labs ------- -~~PATIENT INSTRUCTIONS FOR FLU SHOT~~ Possible side effects of influenza vaccine, (flu shot), are usually mild and include: 1. Soreness or redness at injection site 2. Low grade fever 3. Body aches You may use Tylenol/Acetaminophen as needed for these symptoms. LET YOUR DOCTOR KNOW IMMEDIATELY IF YOU HAVE DIFFICULTY BREATHING OR SWALLOWING, EXPERIENCE ITCHINGOF FEET OR HANDS, HAVE SWELLING OF EYES, FACE OR INSIDE OF NOSE. 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 History of monoclonal IgG lambda paraproteinemia, - with anemia of ckd on procrit injections. 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 SOL December 2019 after bactrim use from kidney infection- Potassium 6- Started veltassa 01/12 > diarrhea versus just more frequen stools >> cut back to qod. Walks most days. Takes walking stick; no orthostatic sx or falls. Drinks at least : at least 17 oz water daily. Cup of tea and diet pepsi daily Home blood pressure checks: Not often NSAID use: No - baby aspirin Herbals/supplements: Veltassa, Biotin, Probiotic , boost History of stones: No Family history of CKD or ESRD: No admission at [facility] on 08/13/2023 for chest pain over 3 days. High troponin and hypomagnesemia attime of admission. During visit bp was elevated an noted noted hypertensive urgency (was 205/74 on presentation-she reports bp meds had prev been discontinued and she was not taking any at the time. She has since restarted Losartan 50 mg Per labs over the course stay patient with hypokalemia and hypophosphatemia Patient was discharged on 08/15/2023 after f/u testing negative and her BP improved, electrolytes balanced. She was advised to start veltassa 8.4 g every other day . TODAY 02/15/2024: acc by today. 2 ER visits late last month [facility] after admission for diverticulitis. Follows w/ anemia clinic. and pt wondering why no B12 shots. Taking veltassa No falls but some balance concerns says she sometimes loses track of what to take medication nicole; pt states she uses pill box REVIEW OF SYSTEMS General: No fatigue, No change in weight Head: No significant headache Respiratory: No cough,No wheezing, No shortness of breath Cardiovascular:no chest pain No palpitations, and No syncope Gastrointestinal: No nausea, vomiting, diarrhea No blood in stools No abdominal pain; poor appetite> can't eat like she used to thinks d/t age; no recent emesis per her (left clinic early past week with emesis) Urinary: No dysuria, No hematuria. No flank pain Musculoskeletal: No edema Per hsuband pt staggers around and holds onto things and no falls Current Outpatient Medications Medication Sig Dispense Refill ASPIRIN 81 MG PO TABS Take by mouth daily. Indications: takes at night 0 Probiotic Product (PROBIOTIC DAILY) Capsule Take 1 [...] CRUSH OR CHEW) 90 Tablet 3 Nystatin 190628 UNIT/GM External Powder (Nystop) Apply topically to affected area 3 times a day. Apply to under breasts and belly 60 g 1 Boost Oral Liquid Take by mouth daily. Vitamin D3 25 MCG (1000 UT) Oral Tablet (Vitamin D3) Take 1 Tablet by mouth in the morning. CPAP every night at bedtime. Trulicity 0.75 MG/0.5ML Subcutaneous Solution Pen-injector (Dulaglutide) INJECT 1 PEN WEEKLY 6 mL 1 Ferrous Sulfate 325 (65 Fe) MG [...] mouth in the morning. 30 Tablet 2 BD PEN NEEDLE SHORT U/F 31G X 8 MM USE WITH INSULIN UP TO 4 TIMES DAILY FOR DIABETES 1 Box Dosing Unit 11 nitroglycerin (NITROSTAT) 0.[address] 1 Tablet under the tongue every 5 minutes as needed. FreeStyle Lancets USE TO TEST BLOOD SUGAR 2 TIMES A DAY Dx: E11.9 200 Each 3 Procrit 00885 UNIT/ML Injection Solution Inject 10,000 units subcutaneous [...] nostril in the morning. 16 g 1 Estradiol 0.1 MG/GM Vaginal Cream (Estrace) Use 1gm nightly -rub around vaginal opening and use inside , for 2 weeks. Then use twice weekly. (Patient not taking: Reported on 02/15/2024) 42.5 g 3 No current facility-administered medications for this visit. Review of patient's allergies indicates: Allergen Reactions Ciprofloxacin Rash Rash with first IV dose in hospital Neville Inhibitors Cough Lisinopril causes cough Metformin Diarrhea PHYSICAL EXAMINATION: BP Readings from Last 6 Encounters: 02/15/24 165/82 01/30/24 140/82 01/29/24 144/82 01/23/24 187/74 12/28/23 138/90 12/21/23 142/76 Wt Readings from Last 6 Encounters: 02/15/24 75.8 kg (167 lb) 01/30/24 77.1 kg (170 lb) 01/29/24 78 kg (171 lb 14.4 oz) 01/23/24 77.5 kg (170 lb 14.4 oz) 12/07/23 76.4 kg (168 lb 7 oz) 09/11/23 76.8 kg (169 lb 4.8 oz) Pulse Readings from Last 6 Encounters: 02/15/24 70 01/30/24 68 01/29/24 55 01/23/24 59 12/28/23 65 12/21/23 73 165/82 148/82 NAD, oriented x 3, ambulatory w/o asst, gait not assessed Normocephalic, atraumatic, eomi nonicteric sclerae MMM Supple neck RRR w/o m/g/r; no edema CTAB w/ reasonable air mvt NT abd, +BS, soft No cyanosis or clubbing No rash No tremor, focal or global weakness; fluent speech, limited hx LABS: Recent Labs Units 01/29/24 1040 01/23/24 1138 01/18/24 1016 12/04/23 0933 10/27/23 1113 SODIUM - [facility] mmol/L 140 143 -- 142 140 POTASSIUM - [facility] mmol/L 4.5 3.3* -- 4.1 4.5 CHLORIDE - [facility] mmol/L 103 105 -- 105 105 CO2 - [facility] mmol/L 24 27 -- 25 25 ESTIMATED GLOMERULAR FILTRATION RATE - [facility] mL/min 30* 39* 33* 33* 32* BUN - [facility] mg/dL 19 14 -- 32* 29* CREATININE - [facility] mg/dL 1.7* 1.3* 1.5* 1.5* 1.6* Recent Labs Units 01/29/24 1040 01/23/24 1138 01/18/24 1016 12/04/23 0933 10/20/23 1025 09/12/23 1030 HGB g/dL 9.7* 10.2* 10.5* 10.9* 10.7* 11.8* FERRITIN - [facility] ng/mL -- -- 518* 521* 653* 503* TRANSFERRIN SATURATION PERCENT - [facility] % -- -- 74* 51 29 52 Recent Labs Units 01/29/24 1040 01/23/24 1138 12/04/23 0933 10/27/23 1113 08/31/23 0927 01/02/23 1309 12/12/22 0942 10/05/22 1134 08/25/22 1105 CALCIUM - [facility] mg/dL 9.8 8.6 10.0 10.3* 10.1 < > -- < > 9.7 PHOSPHORUS - [facility] mg/dL -- -- -- -- 3.1 -- -- -- 3.3 25-HYDROXY VITAMIN D - [facility] ng/mL -- -- 24 -- -- -- 27 -- -- PTH - [facility] pg/mL -- -- -- -- -- -- 46 -- -- < > = values in this interval not displayed. Recent Labs Units 12/04/23 0933 04/27/23 1113 07/26/22 1525 03/18/22 1020 HEMOGLOBIN A1C - [facility] % 6.4* 6.6* 7.1* 6.8* Recent Labs Units 12/04/23 1138 08/31/23 0931 07/26/23 1435 04/28/23 0915 ALBUMIN / CREATININE RATIO, URINE - [facility] mg/g Creat 666* 577* 852* 478* Recent Labs Units 01/23/24 1312 10/09/23 1549 08/31/23 0931 03/23/23 1439 CLARITY, URINE - [facility] Clear Clear Clear Clear GLUCOSE, URINE - [facility] mg/dL Negative Negative Negative Negative BILIRUBIN, URINE - [facility] Negative Negative Negative Negative KETONE, URINE - [facility] mg/dL Negative Negative Negative Negative SPECIFIC GRAVITY, URINE - [facility] 1.009 1.015 >=1.030 1.012 BLOOD, URINE - [facility] Negative Small* Trace* Negative PH, URINE - [facility] Units 6.0 5.5 5.0 6.0 PROTEIN, URINE - [facility] mg/dL 100* 100* >=300* 30* UROBILINOGEN, URINE - [facility] mg/dL 0.2 0.2 0.2 Normal NITRITE, URINE - [facility] Negative Negative Negative Negative ESTERASE, URINE - [facility] Negative Small* Trace* Trace* BACTERIA, URINE - [facility] /HPF 0-25 0-25 0-25 0-25 WBC, URINE - [facility] /HPF 0-2 50+* 10-19* 6-9* RBC, URINE - [facility] /HPF 0-2 3-5* 0-2 0-2 TTE 2018 60-65% EF mod CLVH No WMA AV sclerosis w/o stenosis ASSESSMENT AND PLAN: Uncontrolled hypertension, stage 1 (Primary) - BASIC METABOLIC PANEL; Future; Expected date: 02/19/2024 - MAGNESIUM; Future; Expected date: 02/19/2024 - PHARMACIST MEDS THERAPY MGMT REFERRAL OP Need for prophylactic vaccination and inoculation against influenza - INFLUENZA VAC., TRIVALENT, HD, PF, 65 AND ABOVE, 0.5 ML IM (FLUZONE HD) Stage 3b chronic kidney disease (HCC) Hypomagnesemia - MAGNESIUM; Future; Expected date: 02/19/2024 Albuminuria Anemia of chronic renal failure, unspecified stage HTN, goal below 130/80 Other orders - amLODIPine Besylate 2.5 MG Oral Tablet (Norvasc); Take 1 Tablet by mouth in the morning. - Losartan Potassium 25 MG Oral Tablet (Cozaar); Take 1 Tablet by mouth in the morning. Blood pressure uncontrolled today. Patient with history of hypertensive urgency admission spring 2023. -start losartan and amlodipine as below; currently not taking any antihypertensives and needs them -low-sodium diet -3 day blood pressure log and MT D M for hypertension -will recheck magnesium since she has had issues with this in the past six- months and is not currently on supplementation; appetite still marginal CKD 3 B with estimated GFR generally in the 30s and at the low end of this range on January Chem panel. Generally with 0.75 g proteinuria, including most recent assay in November -look to maximize losartan with Veltassa on board : This is indicated due to her high-risk proteinuria status -continue Veltassa -recheck labs as above Anemia of chronic renal failure following with Nephrology anemia clinic. Explained to the that the reason she does not get B12 is that her B12 levels have been consistently quite elevated. Noneed to intervene to bring them down but no indication to give more. -continue with anemia clinic Patient Instructions -start losartan 25 mg daily -start amlodipine 2.5 mg daily -no change to other medications today -eat a low sodium diet (less than 2000 mg or 1/2 tsp) daily -do a 3 day BP log using good technique >> check 2X in AM and 2X in PM each about a minute apart; after 3-4 days get the list to me or to your [facility] pharmacist -will get an [facility] pharmacist to work with you on high blood pressure like Will does for anemia -after about 10-14 days on new medicines, check labs ------- -~~PATIENT INSTRUCTIONS FOR FLU SHOT~~ Possible side effects of influenza vaccine, (flu shot), are usually mild and include: 1. Soreness or redness at injection site 2. Low grade fever 3. Body aches You may use Tylenol/Acetaminophen as needed for these symptoms. LET YOUR DOCTOR KNOW IMMEDIATELY IF YOU HAVE DIFFICULTY BREATHING OR SWALLOWING, EXPERIENCE ITCHINGOF FEET OR HANDS, HAVE SWELLING OF EYES, FACE OR INSIDE OF NOSE. Neelam Hilliard MD Nephrology, [address] [address] CC: REF: [facility] LU[facility] [address] [place] [address] (office) [phone] (fax) PCP: [facility] [address] [place] [address] [phone] This chart was completed in part utilizing [employer] Speech Voice Recognition Software. Randomword insertions, pronoun errors, and incomplete sentences are an occasional consequence of this system due to software limitations, and ambient noise. Any questions or concerns about the content, text, or information contained within the body of this dictation should be directly addressed to the provider for clarification. * Idalia Smith RN - 02/15/2024 1:12 PM EDT PRE - ADMINISTRATION DOCUMENTATION Are you experiencing any cold symptoms or fever? No Have you had Guillain-[place] Syndrome (an illness that causes paralysis) within the last 6 weeks? No Have you had the flu shot in the past? YES Have you ever had a reaction to the flu shot? No Idalia Smith RN, 02/15/2024 1:12 PM Immunization Administration Documentation Time Out Procedure Performed: Yes Patient Identified (Ask Name/Date of ): Yes Does the patient have a fever greater than 101 degrees today? No Patient allergic to latex? No VFC Stock: No Immunization(s) verified: Yes, Immunization Name: Flu, VIS Sheet(s) given: Yes Verified Side and Site: Yes Verified Shot(s) with Parent(s)/Patient: Yes documented in this encounter Nursing Notes * Idalia Smith RN - 02/15/2024 1:09 PM EDT Follow up visit today accompanied by . States she was hospitalized about 1 month ago with Diverticulitis. Does take Procrit as directed at home. Has not had recently. documented in this encounter Plan of Treatment Upcoming Encounters Date Type Department Care Team (Late st Contact Info) Description 02/26/2024 9:50 AM EDT Laboratory Laboratory, [facility] [address] [place] [id number] [facility] [address] [place] [address] 02/27/2024 9:30 AM EDT [facility] [address] [place] [address] Clinic, [facility] [address] [place] [address] 02/29/2024 10:20 AM EDT Office Visit [facility] [address] [facility] [place] [address] Joyce Miner CRNP [address] [place] [address] 07/03/2024 3:20 PM EST Office [facility] [address] [facility] [place] [address] Milton De Luna MD [address] [facility] [place] [address] 01/30/2025 10:00 AM EDT Office Visit [facility] [address] [facility] [place] [id number] Lucila Flanagan CRNP [address] [place] [address] Scheduled Orders Name Type Priority Associated Diagnoses Orde r Schedule BASIC METABOLIC PANEL Lab Routine Uncontrolled hypertension, stage 1 Expected: 02/19/2024, Expires: 02/14/2025 MAGNESIUM Lab Routine Hypomagnesemia Uncontrolled hypertension, stage 1 Expected: 02/19/2024, Expires: 02/14/2025 Scheduled Referrals Name Type Priority Associated Diagnoses Orde r Schedule PHARMACIST MEDS THERAPY MGMT REFERRAL OP Referral Within 10 days (routine) Uncontrolled hypertension, stage 1 Ordered: 02/15/2024 Health Maintenance Due Date Last Done Comments [...] as of this encounter Visit Diagnoses Diagnosis Uncontrolled hypertension, stage 1- Primary Unspecified essential hypertension Need for prophylactic vaccination and inoculation against influenza Stage 3b chronic kidney disease (HCC) Hypomagnesemia Disorders of magnesium metabolism Albuminuria Proteinuria Anemia of chronic renal failure, unspecified stage HTN, goal below 130/80 Unspecified essential hypertension documented in this encounter Care Teams Unionmelt Operator Relationship Specialty Start Date End Date Milton De Luna MD [address] [place] [address] PCP - General Family Medicine 10/13/20 documented as of this encounter
[2024-02-22 18:39] LABS: Appearance Urine Clear (Clear); Bacteria Urine Automated None Seen (None Seen); Bilirubin Urine Negative (Negative); Blood Urine Negative (Negative); Cast Urine Automated 0-2 /lpf (0-2); Color Urine Yellow; Epithelial Cell Urine Auto 0-2 /hpf (0-2); Glucose Urine UA Negative (Negative); Ketones Urine Negative (Negative); Leukocyte Esterase Urine Negative (Negative); Nitrite Urine Negative (Negative); Protein Urine 1+ (Negative); RBC Urine Automated 0-2 /hpf (0-2); Specific Gravity Urine 1.015 (1.000-1.030); Urobilinogen Urine Negative (Negative); WBC Urine Automated 0-5 /hpf (0-5)
[2024-02-22 19:12] VITALS: RESP 18
[2024-02-22] MEDS: PSYLLIUM or GUAR GUM FIBER 4GM PACKET PO SCH (21:16)
[2024-02-22] MEDS: ASPIRIN 81 MG ECTAB PO SCH (21:18)
[2024-02-22] MEDS: OXYBUTYNIN CHLORIDE XL 5 MG TABCR PO SCH (21:18)
[2024-02-23] MEDS: ERTAPENEM 1000MG 1,000 MG/10 ML SYR IV SCH (00:29)
[2024-02-23 08:18] LABS: Calcium 9.6 mg/dl (8.6-10.3); Creatinine Clr Calc Pharmacy 29.1 ml/min; Magnesium 1.8 mg/dl (1.7-2.4); Potassium 4.3 mmol/L (3.5-5.1)
[2024-02-23 10:57] VITALS: BP 129/73; TEMP 97.3; O2SAT 96
--- NOTE | 2024-02-23 14:25 | Hospitalist Progress Note ---
Date of Service February 23, 2024 Assessment & Plan (1) Generalized weakness: Plan: Generalized weakness Likely secondary to UTI H/O ESBL --CT ABD:No acute findings in the abdomen or pelvis. --Urine culture: More than 3 types of organisms, all high counts -Repeat urine culture pending Empirically on ertapenem received for 2 days We will give fosfomycin and plan to discharge home given patient asymptomatic Received IV fluids PT OT, fall precautions Plan to discharge home today Hypomagnesemia Replete and monitor Tinea cruris Continue clotrimazole Hypertension Continue amlodipine, losartan Monitor BP Hypothyroidism Continue levothyroxine DORIS on CPAP DM II Last HbA1c 6.5 Hold p.o. medications Continue insulin while hospitalized Monitor BGs CKD III Monitor renal function Avoid nephrotoxic agents as able Chronic anemia Hb at baseline monitor H/O Dementia Past tobacco abuse PSVT Continue home meds DVT Px Heparin SQ Code Status Full code Disposition Home Admission and Anticipated Discharge Date Admission Date: February 21, 2024 Subjective Patient is seen and examined at bedside States feeling well today Offers no complaints Discussed with patient's family at bedside and also over the phone Rash slowly improving Denies any chest pain, dyspnea, abdominal pain, dysuria, hematuria Plan to be discharged home today Review of Systems Review of Systems: All systems reviewed & are unremarkable except as noted in Subjective Physical Exam Physical Exam: Physical Exam: Vitals signs as noted above General Appearance:Moderately built and nourished, no apparent distress Head: normocephalic, Atraumatic Eyes: normal inspection, EOMI Neck: supple, Trachea midline Respiratory/Chest: Normal breath sounds, CTA, No accessory muscle use Cardiovascular: S1, S2, No murmur Abdomen/GI:Soft, Non tender, Bowel sounds present+Groin rash Extremities/Musculoskeletal:normal inspection, Trace edema Neurologic/Psych:AAOX3, grossly no focal neurological deficits Skin: normal color, warm Results & Data Results & Data Vital Signs (Past 12 Hours) Vital Signs Temp Pulse Pulse Resp BP BP Pulse Ox 02/23/24 13:58 65 02/23/24 10:57 36.3 C L 67 18 129/73 96 02/23/24 10:40 02/23/24 07:53 36.9 C 69 18 150/71 H 93 02/23/24 07:20 70 02/23/24 03:12 36.9 C 61 18 126/67 92 O2 Del Method 10/18/24 13:58 02/23/24 10:57 Room Air 02/23/24 10:40 Room Air 02/23/24 07:53 Room Air 02/23/24 07:20 02/23/24 03:12 Room Air Laboratory Results [facility] 02/23/24 07:01 Sodium 140 Potassium 4.3 Chloride 108 H Carbon Dioxide 26 BUN 21 Creatinine 1.40 H Glucose 121 H Calcium 9.6 Urine 02/22/24 Range/Units 18:24 Urine Color Yellow Urine Appearance Clear (Clear) Urine pH 5.0 (4.5-7.5) Ur Specific [place] 1.015 (1.000-1.030) Urine Protein 1+ H (Negative) Urine Glucose (UA) Negative (Negative)
--- NOTE | 2024-02-23 14:31 | Discharge Summary ---
Date of Service February 23, 2024 Admission HPI Per Admitting Provider History obtained from patient and records. Medical history significant for PSVT, hypertension, DORIS on CPAP, GERD, diverticulitis, DM2 on oral medications, hypothyroidism, CRI (baseline creatinine 1.3 to 1.4), chronic anemia (baseline hemoglobin 9-10), dementia as per records, skin cancer as per records ESBL E. coli as per records, past tobacco abuse. Recent confinement last month for sigmoid diverticulitis. Patient discharged on Augmentin course. Patient still unsteady on her feet at time of discharge as per PCP outpatient follow-up note last month. Patient not feeling well the last few weeks. Abdominal discomfort and unsteadiness. Generalized weakness. Patient denies headache, chest pain, SOB. Patient brought to ER for evaluation. Highest SBP of 170s documented at the ER. 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 Diagnosis Generalized weakness Suspected urinary tract infection Hypomagnesemia Tinea cruris Hypertension Discharge Data Allergies Allergy/AdvReac Type Severity Reaction Status Date / Time corn Allergy Severe Diarrhea Unverified 01/27/24 13:47 ciprofloxacin Allergy Intermediate RASH Verified 01/27/24 13:47 BENEDICT Inhibitors AdvReac Intermediate COUGH Verified 01/27/24 13:47 metformin AdvReac Intermediate GI SYMPTOMS Verified 01/27/24 13:47 Consultations 02/21/24 21:47 ED Decision to Admit Stat Procedures Performed Laboratory Results WBC 6.99 K/ul (4.8-10.8) 02/22/24 07:16 RBC 3.45 M/uL (4.20-5.40) L 02/22/24 07:16 Hgb 10.2 g/dl (12.0-16.0) L 02/22/24 07:16 Hct 30.7 % (37.0-47.0) L 02/22/24 07:16 MCV 89.0 fL (80.0-100.0) 02/22/24 07:16 MCH 29.6 pg (25.0-34.0) 02/22/24 07:16 MCHC 33.2 g/dL (32.0-36.0) 02/22/24 07:16 RDW Std Deviation 41.1 fL (36.4-46.3) 02/22/24 07:16 RDW Coeff of Elpidio 12.6 % (11.5-14.5) 02/22/24 07:16 Plt Count 172 K/uL (130-400) 02/22/24 07:16 MPV 10.9 fL (9.4-12.4) 02/22/24 07:16 Immature Gran % (Auto) 0.3 % 02/22/24 07:16 Neut % (Auto) 69.1 % 02/22/24 07:16 Lymph % (Auto) 24.0 % 02/22/24 07:16 [place] % (Auto) 5.4 % 02/22/24 07:16 Eos % (Auto) 0.9 % 02/22/24 07:16 Baso % (Auto) 0.3 % 02/22/24 07:16 Neut # (Auto) 4.83 K/uL (1.40-6.50) 02/22/24 07:16 Lymph # (Auto) 1.68 K/uL (1.20-3.40) 02/22/24 07:16 [place] # (Auto) 0.38 K/uL (0.11-0.59) 02/22/24 07:16 Eos # (Auto) 0.06 K/uL (0.00-0.50) 02/22/24 07:16 Baso # (Auto) 0.02 K/uL (0.00-0.20) 02/22/24 07:16 Immature Gran # (Auto) 0.02 K/uL (0.01-0.20) 02/22/24 07:16 VBG pH 7.35 (7.36-7.41) L 02/21/24 20:13 VBG pCO2 50 mmHg (38-50) 02/21/24 20:13 VBG pO2 33 mmHg 02/21/24 20:13 VBG HCO3 28 mmol/L 02/21/24 20:13 VBG O2 Saturation < 60.0 % 02/21/24 20:13 VBG Base Excess 1.2 mEq/L 02/21/24 20:13 Sodium 140 mmol/L (136-145) 02/23/24 07:01 Potassium 4.3 mmol/L (3.5-5.1) 02/23/24 07:01 Chloride 108 mmol/L (98-107) H 02/23/24 07:01 Carbon Dioxide 26 mmol/L (21-32) 02/23/24 07:01 Anion Gap 6 (3-11) 02/23/24 07:01 BUN 21 mg/dl (6-23) 02/23/24 07:01 Creatinine 1.40 mg/dl (0.6-1.2) H 02/23/24 07:01 Est Cr Clr Drug Dosing 29.1 ml/min 02/23/24 07:01 eGFR 36.64 02/23/24 07:01 BUN/Creatinine Ratio 15.0 (10-20) 02/23/24 07:01 Glucose 121 mg/dl (70-99(Fasting)) H 02/23/24 07:01 POC Glucose 152 mg/dl (70-99) H 02/23/24 12:11 Calcium 9.6 mg/dl (8.6-10.3) 02/23/24 07:01 Magnesium 1.8 mg/dl (1.7-2.4) 02/23/24 07:01 Total Bilirubin 0.8 mg/dl (0.2-1.0) 02/21/24 16:32 AST 38 U/L (13-39) 02/21/24 16:32 ALT 41 U/L (7-52) 02/21/24 16:32 Alkaline Phosphatase 53 U/L (34-104) 02/21/24 16:32 Ammonia 16.0 umol/L (18-72) L 02/21/24 20:13 Total Protein 7.1 gm/dl (6.0-8.3) 02/21/24 16:32 Albumin 4.0 gm/dl (3.4-5.0) 02/21/24 16:32 Globulin 3.1 gm/dl (2.5-4.0) 02/21/24 16:32 Albumin/Globulin Ratio 1.3 (0.9-2) 02/21/24 16:32 Lipase 38 U/L (11-82) 02/21/24 16:32 TSH 3.702 uIu/ml (0.300-4.500) 02/21/24 16:32 Urine Color Yellow 02/22/24 18:24 Urine Appearance Clear (Clear) 02/22/24 18:24 Urine pH 5.0 (4.5-7.5) 02/22/24 18:24 Ur Specific [place] 1.015 (1.000-1.030) 02/22/24 18:24 Urine Protein 1+ (Negative) H 02/22/24 18:24 Urine Glucose (UA) Negative (Negative) 02/22/24 18:24 Urine Ketones Negative (Negative) 02/22/24 18:24 Urine Blood Negative (Negative) 02/22/24 18:24 Urine Nitrite Negative (Negative) 02/22/24 18:24 Urine Bilirubin Negative (Negative) 02/22/24 18:24 Urine Urobilinogen Negative (Negative) 02/22/24 18:24 Ur Leukocyte Esterase Negative (Negative) 02/22/24 18:24 Urine WBC (Auto) 0-5 /hpf (0-5) 02/22/24 18:24 Urine RBC (Auto) 0-2 /hpf (0-2) 02/22/24 18:24 U Hyaline Cast (Auto) 0-2 /lpf (0-2) 02/22/24 18:24 U Epithel Cells (Auto) 0-2 /hpf (0-2) 02/22/24 18:24 Urine Bacteria (Auto) None Seen (None Seen) 02/22/24 18:24 Adenovirus (PCR) Not Detected (NotDetected) 02/21/24 16:32 B. pertussis DNA (PCR) Not Detected (NotDetected) 02/21/24 16:32 B.parapertussis DNA PCR Not Detected (NotDetected) 02/21/24 16:32 Lyme Disease Screen Negative (Negative) 02/21/24 21:51 C. pneumoniae DNA (PCR) Not Detected (NotDetected) 02/21/24 16:32 Coronavirus OC43 (PCR) Not Detected (NotDetected) 02/21/24 16:32 Coronavirus HKU1 (PCR) Not Detected (NotDetected) 02/21/24 16:32 Coronavirus 229E (PCR) Not Detected (NotDetected) 02/21/24 16:32 SARS-CoV-2 (PCR) Not Detected (NotDetected) 02/21/24 16:32 Coronavirus NL63 (PCR) Not Detected (NotDetected) 02/21/24 16:32 Human Metapneumovir PCR Not Detected (NotDetected) 02/21/24 16:32 Influenza Type A (PCR) Not Detected (NotDetected) 02/21/24 16:32 Influenza Type B (PCR) Not Detected (NotDetected) 02/21/24 16:32 M. pneumoniae (PCR) Not Detected (NotDetected) 02/21/24 16:32 Parainfluenza 1 (PCR) Not Detected (NotDetected) 02/21/24 16:32 Parainfluenza 2 (PCR) Not Detected (NotDetected) 02/21/24 16:32 Parainfluenza 3 (PCR) Not Detected (NotDetected) 02/21/24 16:32 Parainfluenza 4 (PCR) Not Detected (NotDetected) 02/21/24 16:32 RSV (PCR) Not Detected (NotDetected) 02/21/24 16:32 Entero/Rhino (PCR) Not Detected (NotDetected) 02/21/24 16:32 Impressions Chest X-Ray 02/21/24 16:36 XR chest 1V portable HISTORY: 88 years-old Female weakness COMPARISON: 10/14/2023 TECHNIQUE: AP view the chest FINDINGS: Cardiac silhouette is upper limits of normal in size. No pneumothorax, large pleural effusion or overt pulmonary edema. There is unchanged blunting of the costophrenic angles with bibasilar atelectasis versus scarring. Healed chronic right proximal humeral fracture deformity. IMPRESSION: Cardiomegaly without acute process. ACT 112: Negative or not required by law. The above report was generated using voice recognition software. It may contain grammatical, syntax or spelling errors. Electronically signed by: Grupo Wood M.D. 02/21/2024 6:14 PM Abdomen/Pelvis CT 02/21/24 19:01 Exam(s): CT ABDOMEN + PELVIS With Contrast IV Amt: 93 ml optiray 320 EXAM: CT Abdomen and Pelvis With Intravenous Contrast CLINICAL HISTORY: Reason for exam: abd pain. TECHNIQUE: Axial computed tomography images of the abdomen and pelvis with intravenous contrast. CTDI is 26.32 mGy and DLP is 1218.32 mGy-cm. Automated exposure control was utilized for the study. A dose lowering technique was utilized adhering to the principles of ALARA. CONTRAST: Patient received 93 ml optiray 320 of IV contrast COMPARISON: 01/19/2024 FINDINGS: ABDOMEN: Liver: Unremarkable. Gallbladder and bile ducts: Status post cholecystectomy. Pancreas: Unremarkable. Spleen: Unremarkable. Adrenals: Unremarkable. Kidneys and ureters: Unremarkable. No obstructing stones. No hydronephrosis. Stomach and bowel: Sigmoid colonic diverticulosis without acute diverticulitis. PELVIS: Appendix: No findings to suggest acute appendicitis. Bladder: Unremarkable. Reproductive: Unremarkable as visualized. ABDOMEN and PELVIS: Intraperitoneal space: Unremarkable. No free air. No significant fluid collection. Bones/joints: No acute fracture. Soft tissues: Unremarkable. Vasculature: Unremarkable. Lymph nodes: Unremarkable. IMPRESSION: No acute findings in the abdomen or pelvis. Electronically signed by: Cleveland Kruse MD 02/21/24 21:[address] 02/21/24 19:01 Exam(s): CT HEAD Without Contrast EXAM: CT Head Without Intravenous Contrast CLINICAL HISTORY: Reason for exam: ams. TECHNIQUE: Axial computed tomography images of the head/brain without intravenous contrast. CTDI is 37.61 mGy and DLP is 624.41 mGy-cm. Automated exposure control was utilized for the study. A dose lowering technique was utilized adhering to the principles of ALARA. COMPARISON: 12/07/2023 FINDINGS: Brain: No hemorrhage, extra-axial fluid collection, mass effect, or edema. Ventricles: Unremarkable. Bones/joints: Unremarkable. No fracture. Soft tissues: Unremarkable. Sinuses: No acute sinusitis. Mastoid air cells: Unremarkable as visualized. IMPRESSION: 1. No acute intracranial abnormality. Electronically signed by: Cleveland Kruse MD 02/21/24 20:57 PM Ordered Studies 02/21/24 19:01 CT abd pelvis IV con only Stat CT head/brain wo con Stat Hospital Course (1) Generalized weakness: Generalized weakness Likely secondary to UTI H/O ESBL --CT ABD:No acute findings in the abdomen or pelvis. --Urine culture: More than 3 types of organisms, all high counts -Repeat urine culture pending Empirically on ertapenem received for 2 days We will give fosfomycin and plan to discharge home given patient asymptomatic Received IV fluids PT OT, fall precautions Plan to discharge home today Hypomagnesemia Replete and monitor Tinea cruris Continue clotrimazole Hypertension Continue amlodipine, losartan Monitor BP Hypothyroidism Continue levothyroxine DORIS on CPAP DM II Last HbA1c 6.5 Hold p.o. medications Continue insulin while hospitalized Monitor BGs CKD III Monitor renal function Avoid nephrotoxic agents as able Chronic anemia Hb at baseline monitor H/O Dementia Past tobacco abuse PSVT Continue home meds DVT Px Heparin SQ Code Status Full code Disposition Home Total Time Total Time Spent Total Time Spent (In Minutes): 45 minutes Discharge Plan Discharge Items Patient Disposition: Home - Self-Care Reason For Visit: HYPOMAG, HTN URG Discharge Diagnosis: Generalized weakness Suspected urinary tract infection Hypomagnesemia Tinea cruris Hypertension Activity: Resume your previous activity Exercise/Sports: Gradually increase as tolerated Non-emergency contact: Primary Care Provider Call non-emergency contact if: you have any medication questions, your symptoms worsen, your pain is concerning for you and you have a fever Follow-up/Referrals: Milton Balderas MD [Primary Care Provider] - Diet: Carb Consistent or DM2 and Heart Healthy Addtl Attending Provider Instructions: Follow-up with your primary care physician in 1 week -- Your urine culture is pending at the time of discharge. Follow-up with your physician for results. --Continue clotrimazole cream twice a day as recommended. -- Your amlodipine dose is increased to 5 mg daily for better control of your blood pressure. --Monitor your blood pressure regularly at home. Discuss with your physician for further adjustment of medications as needed Seek immediate medical attention if your symptoms reoccur or worsen Please take all medications as instructed on discharge list below. Please call if you have any questions or problems. You can reach a [facility] hospitalist on duty at [facility] 24 hours a day by calling [phone] Pending Studies at Discharge: Yes Studies:: Urine culture Stand-Alone Forms: My [facility], Smoking Cessation Medications and DC Order Prescriptions: New amlodipine [Norvasc] 5 mg Tablet 5 mg PO DAILY Qty: 30 1RF clotrimazole 1 % Cream 1 applic EXT BID 12 Days Qty: 45 0RF magnesium chloride [Mag 64] 64 mg Tablet,Delayed Release (Dr/Ec) 64 mg PO BID Qty: 60 0RF Continued levothyroxine 75 mcg tablet 75 mcg PO DAILYBB aspirin 81 mg Tablet,Delayed Release (Dr/Ec) 81 mg PO HS oxybutynin chloride 5 mg tablet extended release 24hr 5 mg PO HS Procrit 10,000 unit/mL solution 10,000 unit subcut MONTHLY PRN (Reason: WHEN NEEDED) Trulicity 0.75 mg/0.5 mL pen injector 0.75 mg SUBCUT WK Rx Instructions: ADMINISTER EVERY MONDAY Veltassa 8.4 gram powder in packet 8.4 g PO .EVERY OTHER NIGHT nitroglycerin [Nitrostat] 0.6 mg Tablet, Sublingual 0.6 mg sublingual DIRECTED PRN (Reason: Chest Pain) biotin 1 mg Capsule 1 mg PO QDL nystatin [Nyamyc] 100,000 unit/gram powder 1 applic TOPICAL TID PRN (Reason: irritation) cholecalciferol (vitamin D3) [Vitamin D3] 25 mcg (1,000 unit) Tablet 25 mcg PO QAM psyllium husk [Metamucil] 0.4 gram Capsule 0.4 g PO .EVERY OTHER NIGHT Saccharomyces boulardii [Florastor] 250 mg capsule 250 mg PO DAILY Rx Instructions: swallow whole losartan 25 mg tablet 25 mg PO DAILY estradiol 0.01 % (0.1 mg/gram) cream 1 applic VAGINAL UD ondansetron 4 mg tablet,disintegrating 4 mg PO Q8 PRN (Reason: Nausea And Vomiting) Discontinued amlodipine 2.5 mg tablet 2.5 mg PO DAILY Discharge Orders: Discharge Order (Routine); Ordered 02/23/24 Ordered By: Destin Olivarez Admission Data Admit Date/Time: 02/21/24 22:12 Attending Provider: Destin Olivarez Admit Provider: Evin Adams Primary Care Provider: Milton Balderas Other Providers: Evin Adams
[2024-02-23 14:52] VITALS: PULSE 103
[2024-02-23] MEDS: FOSFOMYCIN TROMETHAMINE 3 GM PACKET PO ONE (14:56)
[2024-02-23] MEDS ORDERED: ERTAPENEM 500MG 500 MG/5 ML SYR IV SCH (23:00)
== END 2024-02-23 15:15 | disposition home or self-care (01) | DRG 690 ==
LOC: ED 16:27 → 2W 22:12
DX: Z96.653 Presence of artificial knee joint, bilateral; I12.9 Hypertensive chronic kidney disease with stage 1 through stage 4 chronic kidney disease, or unspecified chronic kidney disease; Z79.899 Other long term (current) drug therapy; K21.9 Gastro-esophageal reflux disease without esophagitis; Z83.3 Family history of diabetes mellitus; Z79.84 Long term (current) use of oral hypoglycemic drugs; N39.0 Urinary tract infection, site not specified; E11.22 Type 2 diabetes mellitus with diabetic chronic kidney disease; E83.42 Hypomagnesemia; G47.33 Obstructive sleep apnea (adult) (pediatric); Z90.49 Acquired absence of other specified parts of digestive tract; Z86.16 Personal history of COVID-19; Z88.8 Allergy status to other drugs, medicaments and biological substances; Z79.82 Long term (current) use of aspirin; I47.10 Supraventricular tachycardia, unspecified; Z79.890 Hormone replacement therapy; K57.32 Diverticulitis of large intestine without perforation or abscess without bleeding; Z87.891 Personal history of nicotine dependence; Z87.440 Personal history of urinary (tract) infections; E78.5 Hyperlipidemia, unspecified; Z11.52 Encounter for screening for COVID-19; B35.6 Tinea cruris; Z99.89 Dependence on other enabling machines and devices; Z79.85 Long-term (current) use of injectable non-insulin antidiabetic drugs; E11.40 Type 2 diabetes mellitus with diabetic neuropathy, unspecified; F03.90 Unspecified dementia, unspecified severity, without behavioral disturbance, psychotic disturbance, mood disturbance, and anxiety; N18.30 Chronic kidney disease, stage 3 unspecified; E03.9 Hypothyroidism, unspecified; D63.1 Anemia in chronic kidney disease; Z88.1 Allergy status to other antibiotic agents

== ENCOUNTER 2024-06-19 16:53 | Inpatient (IN) ==
[2024-06-19 17:26] LABS: Basophils # (auto) 0.08 K/uL (0.00-0.20); Basophils % (auto) 0.9 %; Eosinophils # (auto) 0.28 K/uL (0.00-0.50); Eosinophils % (auto) 3.3 %; Hematocrit (blood only) 38.1 % (37.0-47.0); Hemoglobin 12.3 g/dl (12.0-16.0); Immature Granulocytes # (auto) 0.02 K/uL (0.01-0.20); Immature Granulocytes % (auto) 0.2 %; Lymphocytes % (auto) 30.6 %; Mean Corpuscular Hemoglobin 29.3 pg (25.0-34.0); Mean Corpuscular Hgb Conc 32.3 g/dL (32.0-36.0); Mean Corpuscular Volume 90.7 fL (80.0-100.0); Mean Platelet Volume 10.3 fL (9.4-12.4); Monocytes # (auto) 0.66 K/uL (0.11-0.59); Monocytes % (auto) 7.8 %; Neutrophils # (auto) 4.87 K/uL (1.40-6.50); Neutrophils % (auto) 57.2 %; Platelet Count 223 K/uL (130-400); RDW Coefficient of Variation 12.9 % (11.5-14.5); RDW Standard Deviation 42.1 fL (36.4-46.3); White Blood Count 8.51 K/ul (4.8-10.8)
[2024-06-19 17:42] LABS: Albumin Globulin Ratio 1.3 (0.9-2); Albumin Level 4.4 gm/dl (3.4-5.0); BUN Creatinine Ratio 20.4 (10-20); Bilirubin,Total 0.6 mg/dl (0.2-1.0); Calcium 10.3 mg/dl (8.6-10.3); Globulin 3.3 gm/dl (2.5-4.0); Total Protein 7.7 gm/dl (6.0-8.3)
[2024-06-19 19:43] LABS: Appearance Urine Clear (Clear); Bacteria Urine Automated None Seen (None Seen); Bilirubin Urine Negative (Negative); Blood Urine Negative (Negative); Cast Urine Automated 0-2 /lpf (0-2); Color Urine Yellow; Epithelial Cell Urine Auto 0-2 /hpf (0-2); Glucose Urine UA Negative (Negative); Ketones Urine Trace (Negative); Leukocyte Esterase Urine Negative (Negative); Nitrite Urine Negative (Negative); Protein Urine 3+ (Negative); RBC Urine Automated 0-2 /hpf (0-2); Specific Gravity Urine 1.023 (1.000-1.030); Urobilinogen Urine Negative (Negative); WBC Urine Automated 0-5 /hpf (0-5)
[2024-06-19 20:02] LABS: Magnesium 1.5 mg/dl (1.7-2.4)
[2024-06-19] MEDS: ACETAMINOPHEN 1,000 MG/100 ML VIAL IV STA (20:08)
[2024-06-19] MEDS: OPTIRAY 320 100ml IV ONE (20:25)
[2024-06-19] MEDS: cefTRIAXone SODIUM 2,000 MG/50 ML BAG IV STA (20:55)
--- NOTE | 2024-06-19 21:19 | CT Scan Report ---
Exam(s): CT ABDOMEN + PELVIS With Contrast EXAM: CT Abdomen and Pelvis With Intravenous Contrast CLINICAL HISTORY: Reason for exam: abd pain, recent uti. TECHNIQUE: Axial computed tomography images of the abdomen and pelvis with intravenous contrast. CTDI is 26.95 mGy and DLP is 1254.92 mGy-cm. Automated exposure control was utilized for the study. A dose lowering technique was utilized adhering to the principles of ALARA. COMPARISON: No relevant prior studies available. FINDINGS: ABDOMEN: Liver: Unremarkable. Gallbladder and bile ducts: Status post cholecystectomy. Pancreas: Unremarkable. Spleen: Unremarkable. Adrenals: Unremarkable. Kidneys and ureters: Cortical atrophy in the kidneys. A few cortical cysts. No ureteral stone or obstructive uropathy. Stomach and bowel: Colonic diverticulosis without acute diverticulitis. PELVIS: Appendix: No findings to suggest acute appendicitis. Bladder: Unremarkable. Reproductive: Unremarkable as visualized. ABDOMEN and PELVIS: Intraperitoneal space: Unremarkable. No free air. No significant fluid collection. Bones/joints: No acute fracture. Soft tissues: Unremarkable. Vasculature: Unremarkable. Lymph nodes: Unremarkable. IMPRESSION: 1. No acute abnormality within the kidneys, ureters, or bladder. 2. Colonic diverticulosis without acute diverticulitis. Electronically signed by: Cleveland Kruse MD 06/19/24 21:19 PM
[2024-06-19] MEDS: MAGNESIUM SULFATE / D5W 1 GM/100 ML BAG IV STA (21:24)
[2024-06-19] MEDS: SODIUM CHLORIDE 0.9% 1,000 ML IV ONE (21:29)
--- NOTE | 2024-06-19 21:42 | Emergency Department Note ---
Impression & Plan Abdominal discomfort, Hypertension, Abnormal ECG, Elevated troponin ED Provider Note ED Provider Note NAME: KELLI ALBRIGHT AGE:88 SEX: Female : 1935 ARRIVES VIA: Private vehicle INFORMANT: Patient, family ED PROVIDER(s): Isabela John DO CHIEF COMPLAINT: Abdominal discomfort, hypertension, possible recurrent UTI HPI: This is an 88-year-old female who presents emergency room due to concern for abdominal discomfort, concern for high blood pressure, and concern for her urine as she recently had infection. Patient states she presented here last week and was found to have urinary tract infection. She has had these previously. She denies any history of pyelonephritis. Son states remotely she did have a kidney stone. Patient states she was given 1 pill for her urinary tract infection last week but was not discharged home on any antibiotics. She denies fevers or chills, nausea or vomiting. She does admit to not drinking much water which son confirms at bedside. No recent fevers or chills, falls, dizziness, or change in bowel movements. She states her urine is frequently dark, but she has not noticed any blood or any strong odor. She denies any coming cough or cold symptoms. No chest pain or shortness of breath. PAST MEDICAL HISTORY:See Below PAST SURGICAL HISTORY:See Below FAMILY HISTORY:See Below SOCIAL HISTORY:See Below HOME MEDICATIONS:See Below ALLERGIES:See Below VITALS:See Below PHYSICAL EXAMINATION: GENERAL: alert, well appearing, well nourished, no distress, non-toxic EYE EXAM: normal conjunctiva, PERRL and EOM's grossly intact OROPHARYNX: no exudate, no erythema, lips, buccal mucosa, and tongue normal and mucous membranes are moist NECK: supple, no nuchal rigidity, no adenopathy, non-tender LUNGS: Clear to auscultation. Normal chest wall mechanics, no w/r/r HEART: no murmurs, S1 normal and S2 normal ABDOMEN: abdomen soft, non-tender, normo-active bowel sounds, no masses, no rebound or guarding. SKIN: no rashes, petechiae, orbruising UPPER EXTREMITIES: upper extremities are grossly normal. FROM, nml pulses b/l. LOWER EXTREMITIES: No pitting edema. FROM, nml pulses b/l. NEURO EXAM: Normal sensorium, cranial nerves II-XII grossly intact, normal speech, no facial droop,nogross weakness of arms, no gross weakness of legs. Gross sensation intact. No ataxia. Vital Signs: reviewed and remarkable Differential Diagnosis: diverticulitis, UTI, obstruction, mesenteric ischemia, aortic pathology, inflammatory bowel disease, renal colic, PUD, pancreatitis, biliary pathology, hernia, volvulus, constipation, ACS, medication ADR, dehydration, SOL, electrolyte abnormality, anxiety, as well as other pathologies. MEDICAL DECISION MAKING: This is an 88-year-old female who presents to the emergency department due to concern for abdominal discomfort and nausea, and concern for recurrent UTI. Patient with recent urinary tract infection treated last week. Patient was concern for recurrent UTI versus inadequate treatment of the 1 last week. Patient denied any vomiting, fevers, or diarrhea. Patient was afebrile and hemodynamically stable on arrival. Labs drawn and sent, IV established, and patient monitored on telemetry. Urine collected and sent additionally and due to concern for recent urinary tract infection with accompanying nausea and upper abdominal discomfort she was sent for CT of the abdomen and pelvis. Patient was started on IV fluids and given IV Pepcid, IV Zofran, and IV Tylenol initially. Patient found to be mildly hypomagnesemic and was given IV magnesium repletion. UA reassuring. CT did not reveal any acutely concerning pathology. After further review of prior history and reevaluation at bedside, EKG performed at bedside interpreted by me and troponin added to labs. Patient's prior EKG had shown T wave inversions, the inversions noted tonight appeared more severe and patient was noted to have an elevated troponin. Following this we discussed need for further inpatient evaluation as her nausea and upper abdominal discomfort may have been her anginal equivalent. Patient does have risk factors for ACS. She continued to deny chest pain or shortness of breath. I discussed the case with the [facility] who is in agreement with plan for further inpatient evaluation. Heparin drip added after discussion with them, patient given IV Protonix as a precaution and then aspirin added additionally. Patient did have cardiac evaluation last year which I did review with him at bedside as it was reassuring. No evidence for acute vascular emergency on CT. Patient was found to be hypertensive although this did improve with further symptomatic control. Consultation(s): Discussed with Dr. Coello, [facility] team, for additional evaluation and management. ER Treatment Provided: See below Diagnostics Interpreted By Me: -ECG: Normal sinus at 66, normal axis, normal intervals, T wave inversions noted in 1, aVL, V2 through V6 with ST depression in V5 and V6; ST changes slightly worse compared to June 15, 2024 -Cardiac Monitoring: An order was placed for continuous cardiac monitoring. The monitor shows a rate of 70 with normal sinus rhythm. -Laboratory studies: As stated above and show below. -Imaging studies: X-ray Chest: A single view study of the chest was reviewed and was negative for cardiomegaly, focal infiltrate, pulmonary edema, or wide mediastinum. Small left pleural effusion noted. Triage Nursing Note Reviewed Prior/Outside Records Reviewed Critical care: Critical care of 39 min performed to assess and manage high likelihood of life-threatening NSTEMI, involving labs and imaging performed with assessment to evaluate NSTEMI diagnosis with frequent reassessment. This time includes bedside time, treatment discussions with patient/family/consultants, documentation time and excludes procedure time. Past Med/Surg History Problem List (Updated 06/20/24 @ 15:51 by Isabela John DO) Elevated troponin (Acute) Abnormal ECG (Acute) NSTEMI (non-ST elevated myocardial infarction) Hypertension (Acute) Abdominal discomfort (Acute) UTI (urinary tract infection) (Acute) Generalized weakness Hypomagnesemia (Acute) Diverticulitis (Acute) Diverticulitis of sigmoid colon (Acute) Acute metabolic encephalopathy Acute alteration in mental status (Acute) Urinary tract infection (Acute) Abnormal LFTs (Acute) SOL (acute kidney injury) (Acute) Hypomagnesemia (Acute) Generalized weakness (Acute) Hypomagnesemia (Acute) Generalized weakness (Acute) Elevated troponin (Acute) Chest pain (Acute) Decreased appetite Generalized weakness Elevated troponin Chronic anemia Chest pain (Acute) Abnormal EKG (Acute) Chronic RLQ pain Basal cell carcinoma of skin of ankle (Acute) Left knee DJD (Acute) Lichen sclerosus et atrophicus (Acute) 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 coli infection Hypertensive urgency IgM lambda paraproteinemia Surgical History History of gynecologic surgery anterior colporrhaphy History of hysteroscopy Status post tubal ligation History of total bilateral knee replacement (TKR) History of knee surgery History of appendectomy History of dilation and curettage S/P cholecystectomy Family History Mother , 85 Heart disease Diabetes Father , 65 Pancreatic cancer Sister Uterine cancer Breast cancer Denies family history of Ovarian cancer Colorectal cancer Social History Smoking Status: Former smoker Tobacco Type: Cigarettes Second Hand Exposure: No; Do You Dip or Chew Tobacco: No; Hx Alcohol Use: No Hx Substance Use: No Preferred Language: Turkish Communication Ability: Effective Toll Booth Operator Required: No Beliefs That Will Affect Care: None marital status: Current Living Situation: Spouse Current Living Situation Comment: at home current occupational status: retired Other Information That Helps Us Care for You: No Feels Safe at Home: Yes Safety Concerns: Feels Safe At This Time Assistive Devices: Cane and Walker Allergies Allergies Allergy/AdvReac Type Severity Reaction Status Date / Time corn Allergy Severe Diarrhea Unverified 01/27/24 13:47 ciprofloxacin Allergy Intermediate RASH Verified 01/27/24 13:47 BENEDICT Inhibitors AdvReac Intermediate COUGH Verified 01/27/24 13:47 metformin AdvReac Intermediate GI SYMPTOMS Verified 01/27/24 13:47 Home Meds Home Medications Medication Instructions Recorded Confirmed amlodipine 5 mg tablet 5 mg PO DAILY 06/20/24 06/20/24 aspirin 81 mg tablet,delayed 81 mg PO DAILY 06/20/24 06/20/24 release dulaglutide 0.75 mg/0.5 mL 0.75 mg subcut WK 06/20/24 06/20/24 subcutaneous pen injector (Trulicity) ferrous sulfate 325 mg (65 mg 325 mg PO DAILY 06/20/24 06/20/24 iron) tablet levothyroxine 75 mcg tablet 75 mcg PO DAILY 06/20/24 06/20/24 losartan 25 mg tablet 25 mg PO DAILY 06/20/24 06/20/24 magnesium chloride 64 mg 64 mg PO BID 06/20/24 06/20/24 (magnesium chloride) tablet,delayed release nystatin 100,000 unit/gram topical 1 applic topical TID 06/20/24 06/20/24 powder (Nyamyc) patiromer calcium sorbitex 8.4 8.4 g PO Q OTHER DAY 06/20/24 06/20/24 gram oral powder packet (Veltassa) Results & Data (ED) Vital Signs Vital Signs - 24 hr 06/19/24 19:29 06/19/24 19:43 06/19/24 20:53 Pulse Rate 64 Pulse Rate [Left Finger] 69 68 Respiratory Rate 14 20 Blood Pressure [Left Arm] 149/92 H 158/76 H Blood Pressure Mean [Left Arm] 111 103 Pulse Oximetry 97 96 Oxygen Delivery Method 06/19/24 22:25 06/20/24 00:03 06/20/24 02:00 Pulse Rate Pulse Rate [Left Finger] 60 74 66 Respiratory Rate 17 14 22 Blood Pressure [Left Arm] 180/90 H 165/102 H 147/73 H Blood Pressure Mean [Left Arm] 120 123 97 Pulse Oximetry 95 95 94 Oxygen Delivery Method Room Air Laboratory Data 06/20/24 05:25 06/20/24 05:25 Lab Results 06/19/24 06/19/24 Range/Units 17:09 19:28 WBC 8.51 (4.8-10.8) K/ul RBC 4.20 (4.20-5.40) M/uL Hgb 12.3 (12.0-16.0) g/dl Hct 38.1 (37.0-47.0) % MCV 90.7 (80.0-100.0) fL MCH 29.3 (25.0-34.0) pg MCHC 32.3 (32.0-36.0) g/dL RDW Std Deviation 42.1 (36.4-46.3) fL RDW Coeff of Elpidio 12.9 (11.5-14.5) % Plt Count 223 (130-400) K/uL MPV 10.3 (9.4-12.4) fL Immature Gran % (Auto) 0.2 % Neut % (Auto) 57.2 % Lymph % (Auto) 30.6 % Barber % (Auto) 7.8 % Eos % (Auto) 3.3 % Baso % (Auto) 0.9 % Neut # (Auto) 4.87 (1.40-6.50) K/uL Lymph # (Auto) 2.60 (1.20-3.40) K/uL Barber # (Auto) 0.66 H (0.11-0.59) K/uL Eos # (Auto) 0.28 (0.00-0.50) K/uL Baso # (Auto) 0.08 (0.00-0.20) K/uL Immature Gran # (Auto) 0.02 (0.01-0.20) K/uL PT 10.3 (9.0-12.0) Seconds INR 0.9 (0.9-1.1) APTT 24 (21-31) Seconds PTT Ratio 0.9 Sodium 142 (136-145) mmol/L Potassium 4.0 (3.5-5.1) mmol/L Chloride 105 (98-107) mmol/L Carbon Dioxide 29 (21-32) mmol/L Anion Gap 8 (3-11) BUN 31 H (6-23) mg/dl Creatinine 1.52 H (0.6-1.2) mg/dl Est Cr Clr Drug Dosing 28.0 ml/min eGFR 33.20 BUN/Creatinine Ratio 20.4 H (10-20) Glucose 170 H (70-99(Fasting)) mg/dl Calcium 10.3 (8.6-10.3) mg/dl Magnesium 1.5 L (1.7-2.4) mg/dl Total Bilirubin 0.6 (0.2-1.0) mg/dl AST 34 (13-39) U/L ALT 44 (7-52) U/L Alkaline Phosphatase 57 (34-104) U/L Troponin I High Sens 278.9 H* (0-14) pg/ml Total Protein 7.7 (6.0-8.3) gm/dl Albumin 4.4 (3.4-5.0) gm/dl Globulin 3.3 (2.5-4.0) gm/dl Albumin/Globulin Ratio 1.3 (0.9-2) Urine Color Yellow Urine Appearance Clear (Clear) Urine pH 5.0 (4.5-7.5) Ur Specific [place] 1.023 (1.000-1.030) Urine Protein 3+ H (Negative) Urine Glucose (UA) Negative (Negative) Urine Ketones Trace H (Negative) Urine Blood Negative (Negative) Urine Nitrite Negative (Negative) Urine Bilirubin Negative (Negative) Urine Urobilinogen Negative (Negative) Ur Leukocyte Esterase Negative (Negative) Urine WBC (Auto) 0-5 (0-5) /hpf Urine RBC (Auto) 0-2 (0-2) /hpf U Hyaline Cast (Auto) 0-2 (0-2) /lpf U Epithel Cells (Auto) 0-2 (0-2) /hpf Urine Bacteria (Auto) None Seen (None Seen) Administered Medications Amlodipine Besylate (Amlodipine Besylate 5 Mg Tab) 5 mg PO DAILY [facility] Stop: 07/20/24 08:59 Last Admin: 06/20/24 09:32 Dose: 5 mg Documented By: OMAR Aspirin (Aspirin 81 Mg Ectab) 81 mg PO DAILY [facility] Stop: 07/20/24 08:59 Last Admin: 06/20/24 09:31 Dose: 81 mg Documented By: OMAR Atorvastatin Calcium (Atorvastatin 20 Mg Tab) [facility] [place] [facility]: 07/20/24 12:14 Last Admin: 06/20/24 14:06 Dose: 20 mg Documented By: GADIEL Ferrous Sulfate (Ferrous Sulfate 325 Mg Tab) 325 mg PO DAILY [facility] Stop: 07/20/24 08:59 Last Admin: 06/20/24 09:31 Dose: 325 mg Documented By: OMAR Levothyroxine Sodium (Levothyroxine Sodium 75 Mcg Tablet) 75 mcg PO DAILYBB [facility] Stop: 07/20/24 06:29 Last Admin: 06/20/24 06:45 Dose: 75 mcg Documented By: KIERSTEN Losartan Potassium (Losartan Potassium 25 Mg Tab) 25 mg PO DAILY [facility] Stop: 07/20/24 08:59 Last Admin: 06/20/24 09:32 Dose: 25 mg Documented By: OMAR Magnesium Chloride (Magnesium Chloride W/Calcium 64mg Delayed Rel Tab) 64 mg PO BID [facility] Stop: 07/20/24 08:59 Last Admin: 06/20/24 09:31 Dose: 64 mg Documented By: OMAR Nystatin (Nystatin Powder 15gm Btl) 1 appln EXT TID [facility] Stop: 07/20/24 08:59 Last Admin: 06/20/24 14:06 Dose: 1 appln Documented By: Admin: 06/20/24 09:39 Dose: 1 appln Documented By: OMAR Patiromer (Patiromer Calcium Sorbitex 8.4 Gm Pack) 8.4 gm PO Q48H [facility] Stop: 07/20/24 11:59 Last Admin: 06/20/24 12:25 Dose: 8.4 gm Documented By: ZABRINA Discontinued Medications Aspirin (Aspirin 81 Mg Chew) 324 mg PO NOW STA Stop: 06/20/24 00:39 Last Admin: 06/20/24 01:27 Dose: 324 mg Documented By: DANE Heparin Sodium/Dextrose (Heparin Iv Adult Wt-Based Low-Dose *No* Initial Bolus Protocol) 1 each IV ONE STA; Protocol Stop: 06/20/24 00:31 Last Admin: 06/20/24 01:32 Dose: Not Given Documented By: DANE Sodium Chloride (Nss) 1,000 mls @ 999 mls/hr IV .Q1H1M ONE Stop: 06/19/24 20:37 Last Infusion: 06/20/24 01:04 Dose: Infused Documented By: Admin: 06/19/24 21:29 Dose: 999 mls/hr Documented By: DANE Ceftriaxone Sodium (Rocephin) 2,000 mg in 50 mls @ 100 mls/hr IV NOW STA Stop: 06/19/24 20:08 Last Infusion: 06/19/24 21:32 Dose: Infused Documented By: Admin: 06/19/24 20:55 Dose: 100 mls/hr Documented By: DANE Acetaminophen (Ofirmev) 1,000 mg in 100 mls @ 400 mls/hr IV NOW STA Stop: 06/19/24 19:53 Last Infusion: 06/19/24 20:58 Dose: Infused Documented By: Admin: 06/19/24 20:08 Dose: 400 mls/hr Documented By: DANE Magnesium Sulfate/Dextrose (Magnesium Sulfate / D5w) 1 gm in 100 mls @ 100 mls/hr IV NOW STA Stop: 06/19/24 21:36 Last Infusion: 06/19/24 22:43 Dose: Infused Documented By: Admin: 06/19/24 21:24 Dose: 100 mls/hr Documented By: DANE Famotidine (Pepcid 20mg Iv Push) 20 mg in 5 mls @ 2.5 mls/min IV NOW STA Stop: 06/19/24 23:29 Last Admin: 06/20/24 00:04 Dose: 2.5 mls/min Documented By: DANE Heparin Sodium/Dextrose (Heparin 34902 Unit/500 Ml D5w) 25,000 units in 500 mls @ 16 mls/hr IV .Q24H [facility]; Protocol Stop: 07/20/24 00:44 Last Titration: 06/20/24 12:13 Dose: Infused Documented By: ZABRINA Co-signed By: OMAR Admin: 06/20/24 01:56 Dose: 800 units/hr, 16 mls/hr Documented By: CAT Co-signed By: DANE Pantoprazole Sodium (Protonix) 40 mg in 10 mls @ 5 mls/min IV NOW ONE Stop: 06/20/24 00:39 Last Admin: 06/20/24 01:27 Dose: 5 mls/min Documented By: DANE Sodium Chloride (Nss) 1,000 mls @ 125 mls/hr IV .Q8H [facility] Stop: 06/21/24 00:44 Last Infusion: 06/20/24 06:03 Dose: Infused Documented By: Admin: 06/20/24 01:57 Dose: 125 mls/hr Documented By: CAT Magnesium Sulfate/Dextrose (Magnesium Sulfate / D5w) 1 gm in 100 mls @ 50 mls/hr IV ONE ONE Stop: 06/20/24 04:20 Last Infusion: 06/20/24 05:01 Dose: Infused Documented By: Admin: 06/20/24 03:20 Dose: 50 mls/hr Documented By: RENETTA Ioversol (Optiray 320 100ml) 93 ml IV ONCE ONE Stop: 06/19/24 20:25 Last Admin: 06/19/24 20:25 Dose: 93 ml Documented By: JING Nitroglycerin (Nitroglycerin 2% Ointment 30gm Tube) 1 inch EXT NOW ONE Stop: 06/19/24 23:56 Last Admin: 06/20/24 00:04 Dose: 1 inch Documented By: DANE Ondansetron HCl (Ondansetron Inj 2 Mg/Ml 2 Ml Vial) 4 mg IV NOW STA Stop: 06/19/24 23:29 Last Admin: 06/20/24 00:04 Dose: 4 mg Documented By: DANE Patiromer (Patiromer Calcium Sorbitex 8.4 Gm Pack) 8.4 gm PO Q48H [facility] Stop: 07/20/24 08:59 Last Admin: 06/20/24 10:07 Dose: Not Given Documented By: [facility] Imaging Data Radiologist's Impression: Abdomen/Pelvis CT 06/19/24 19:39 Exam(s): CT ABDOMEN + PELVIS With Contrast EXAM: CT Abdomen and Pelvis With Intravenous Contrast CLINICAL HISTORY: Reason for exam: abd pain, recent uti. TECHNIQUE: Axial computed tomography images of the abdomen and pelvis with intravenous contrast. CTDI is 26.95 mGy and DLP is 1254.92 mGy-cm. Automated exposure control was utilized for the study. A dose lowering technique was utilized adhering to the principles of ALARA. COMPARISON: No relevant prior studies available. FINDINGS: ABDOMEN: Liver: Unremarkable. Gallbladder and bile ducts: Status post cholecystectomy. Pancreas: Unremarkable. Spleen: Unremarkable. Adrenals: Unremarkable. Kidneys and ureters: Cortical atrophy in the kidneys. A few cortical cysts. No ureteral stone or obstructive uropathy. Stomach and bowel: Colonic diverticulosis without acute diverticulitis. PELVIS: Appendix: No findings to suggest acute appendicitis. Bladder: Unremarkable. Reproductive: Unremarkable as visualized. ABDOMEN and PELVIS: Intraperitoneal space: Unremarkable. No free air. No significant fluid collection. Bones/joints: No acute fracture. Soft tissues: Unremarkable. Vasculature: Unremarkable. Lymph nodes: Unremarkable. IMPRESSION: 1. No acute abnormality within the kidneys, ureters, or bladder. 2. Colonic diverticulosis without acute diverticulitis. Electronically signed by: Cleveland Kruse MD 06/19/24 21:19 PM Discharge Plan Visit Data Chief Complaint: Urinary Symptoms Stated Complaint: BP HIGH, FATIGUED, UTI, ABD PAIN, ED Provider: Isabela John Discharge Problem: Abdominal discomfort, Hypertension, Abnormal ECG, Elevated troponin Patient Disposition: Admitted As Inpatient Discharge Instructions Interventions: ED Discharge Assessment Last Done: 06/20/24 12:37
[2024-06-19 22:53] LABS: Troponin I High Sensitivity 278.9 pg/ml (0-14)
[2024-06-20] MEDS: ONDANSETRON INJ 2 MG/ML 2 ML VIAL IV STA (00:04)
[2024-06-20] MEDS: FAMOTIDINE 20MG IV PUSH 20 MG/5 ML SYR IV STA (00:04)
[2024-06-20] MEDS: NITROGLYCERIN 2% OINTMENT 30GM TUBE EXT ONE (00:04)
[2024-06-20] MEDS: ASPIRIN 81 MG CHEW PO STA (01:27)
[2024-06-20] MEDS: PANTOprazole 40 MG/10 ML SYR IV ONE (01:27)
[2024-06-20] MEDS: Heparin IV Adult Wt-Based Low-Dose *NO* INITIAL Bolus Protocol IV STA (01:32)
[2024-06-20] MEDS: HEPARIN 25000 UNIT/500 ML D5W 25,000 UNITS/500 ML BAG IV SCH (01:33)
[2024-06-20] MEDS: SODIUM CHLORIDE 0.9% 1,000 ML IV SCH (01:57)
[2024-06-20 02:02] LABS: INR 0.9 (0.9-1.1); Partial Thromboplastin Ratio 0.9; Prothrombin Time 10.3 Seconds (9.0-12.0)
--- NOTE | 2024-06-20 02:15 | XRay Report ---
EXAM: XR chest 1V portable CLINICAL HISTORY: elevated troponin TECHNIQUE: Radiograph of chest was acquired. 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 The lungs are clear and well-expanded with no pulmonary infiltrate . The cardiomediastinal silhouette is within normal limits. No acute osseous abnormality. IMPRESSION: 1. Mild interval increase in left pleural effusion Electronically signed by Drake Veloz 06-20-2024 02:15 AM
--- NOTE | 2024-06-20 02:35 | History & Physical Report ---
Date of Service June 20, 2024 Assessment & Plan (1) NSTEMI (non-ST elevated myocardial infarction): Plan: 88-year-old female with past medical history significant for type 2 diabetes, diabetic neuropathy, hyperlipidemia, hypothyroidism, obstructive sleep apnea on CPAP, CKD stage IV, hypertension, paroxysmal supraventricular tachycardia, GERD, B12 deficiency, kyphosis, mild dementia, anemia of chronic kidney disease, pernicious anemia, history of COVID, history of ESBL UTI presents with abdominal pain and also left lower chest pain and found to elevated troponin. Patient was recently in the ER with urinary symptoms and because she wanted to be discharged from the ER and with history of ESBL she was given a dose of fosfomycin. Patient says today she started developing abdominal pain in the upper abdomen and probably in the left lower chest and as it was not getting better she came to the ER. In the ED UA was okay. CT scan of abdominal pelvis was okay. EKG showed ST depressions in lateral leads and also troponin came back as 278. Currently resting comfortably and hemodynamic stable. Patient states currently pain is improved. Denies any fevers. Currently no headache. No sore throat. No cough. Denies shortness of breath. Normal bowel and bladder movements. Hemodynamics are okay. Non-ST elevated PR Came with abdominal pain and possible left lower chest pain Has some EKG changes Troponin 278 Empirically started on IV heparin Continue home aspirin N.p.o. Will follow serial cardiac enzymes and echo Will follow lipid profile Telemetry Cardiac consult in a.m. for Further recommendations Abdominal pain History of diverticulitis CT scan is okay Currently resolved We will monitor CKD stage IV Baseline creatinine around 1.4 Creatinine 1.5 today Continue Veltassa Will follow labs Diabetes Hold Trulicity Sliding scale Will monitor Obstructive sleep apnea On CPAP nightly Hypertension On amlodipine and losartan Will monitor Hypothyroidism On Synthyroid Hypomagnesia Will replace Continue home magnesium supplement We will follow labs History of anemia of chronic kidney disease Hemoglobin 12.3 DVT prophylaxis On IV heparin Disposition Telemetry Full code History of Present Illness Chief Complaint: Non-ST elevated PR Primary Care Provider: Milton Balderas MD 88-year-old female with past medical history significant for type 2 diabetes, diabetic neuropathy, hyperlipidemia, hypothyroidism, obstructive sleep apnea on CPAP, CKD stage IV, hypertension, paroxysmal supraventricular tachycardia, GERD, B12 deficiency, kyphosis, mild dementia, anemia of chronic kidney disease, pernicious anemia, history of COVID, history of ESBL UTI presents with abdominal pain and also left lower chest pain and found to elevated troponin. Patient was recently in the ER with urinary symptoms and because she wanted to be discharged from the ER and with history of ESBL she was given a dose of fosfomycin. Patient says today she started developing abdominal pain in the upper abdomen and probably in the left lower chest and as it was not getting better she came to the ER. In the ED UA was okay. CT scan of abdominal pelvis was okay. EKG showed ST depressions in lateral leads and also troponin came back as 278. Currently resting comfortably and hemodynamic stable. Patient states currently pain is improved. Denies any fevers. Currently no headache. No sore throat. No cough. Denies shortness of breath. Normal bowel and bladder movements. Hemodynamics are okay. Past medical history. As mentioned above Past surgical history. Bilateral knee arthroplasty. Colonoscopy. Colonoscopy biopsy. Dilatation and curettage. EGD. EGD with biopsy. Appendectomy .cholecystectomy. Social history. . Quit smoking 1979. No alcohol use. No drug use. Family history. Mother had Alzheimer's disease. Father had pancreatic cancer. Brother had throat cancer. Sister had breast cancer Allergies Allergy/AdvReac Type Severity Reaction Status Date / Time corn Allergy Severe Diarrhea Unverified 01/27/24 13:47 ciprofloxacin Allergy Intermediate RASH Verified 01/27/24 13:47 BENEDICT Inhibitors AdvReac Intermediate COUGH Verified 01/27/24 13:47 metformin AdvReac Intermediate GI SYMPTOMS Verified 01/27/24 13:47 Home Medications Medication Instructions Recorded Confirmed Type amlodipine 5 mg tablet 5 mg PO DAILY 06/20/24 06/20/24 History aspirin 81 mg tablet,delayed 81 mg PO DAILY 06/20/24 06/20/24 History release dulaglutide 0.75 mg/0.5 mL 0.75 mg subcut WK 06/20/24 06/20/24 History subcutaneous pen injector (Trulicity) ferrous sulfate 325 mg (65 mg 325 mg PO DAILY 06/20/24 06/20/24 History iron) tablet levothyroxine 75 mcg tablet 75 mcg PO DAILY 06/20/24 06/20/24 History losartan 25 mg tablet 25 mg PO DAILY 06/20/24 06/20/24 History magnesium chloride 64 mg 64 mg PO BID 06/20/24 06/20/24 History (magnesium chloride) tablet,delayed release nystatin 100,000 unit/gram topical 1 applic topical TID 06/20/24 06/20/24 History powder (Nyamyc) patiromer calcium sorbitex 8.4 8.4 g PO Q OTHER DAY 06/20/24 06/20/24 History gram oral powder packet (Veltassa) Past Med/Surg History Problem List (Updated 06/20/24 @ 02:39 by Luis Coello MD) NSTEMI (non-ST elevated myocardial infarction) Hypertension (Acute) Abdominal discomfort (Acute) UTI (urinary tract infection) (Acute) Generalized weakness Hypomagnesemia (Acute) Diverticulitis (Acute) Diverticulitis of sigmoid colon (Acute) Acute metabolic encephalopathy Acute alteration in mental status (Acute) Urinary tract infection (Acute) Abnormal LFTs (Acute) SOL (acute kidney injury) (Acute) Hypomagnesemia (Acute) Generalized weakness (Acute) Hypomagnesemia (Acute) Generalized weakness (Acute) Elevated troponin (Acute) Chest pain (Acute) Decreased appetite Generalized weakness Elevated troponin Chronic anemia Chest pain (Acute) Abnormal EKG (Acute) Chronic RLQ pain Basal cell carcinoma of skin of ankle (Acute) Left knee DJD (Acute) Lichen sclerosus et atrophicus (Acute) 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 coli infection Hypertensive urgency IgM lambda paraproteinemia Surgical History History of gynecologic surgery anterior colporrhaphy History of hysteroscopy Status post tubal ligation History of total bilateral knee replacement (TKR) History of knee surgery History of appendectomy History of dilation and curettage S/P cholecystectomy Family History Mother , 85 Heart disease Diabetes Father , 65 Pancreatic cancer Sister Uterine cancer Breast cancer Denies family history of Ovarian cancer Colorectal cancer Social History Smoking Status: Former smoker Tobacco Type: Cigarettes Second Hand Exposure: No; Do You Dip or Chew Tobacco: No; Hx Alcohol Use: No Hx Substance Use: No Preferred Language: [place] Communication Ability: Effective [employer] Mechanic Required: No Beliefs That Will Affect Care: None marital status: Current Living Situation: Spouse Current Living Situation Comment: at home current occupational status: retired Other Information That Helps Us Care for You: No Feels Safe at Home: Yes Safety Concerns: Feels Safe At This Time Assistive Devices: CPAP, Denture - Upper, Denture - Lower and Glasses Review of Systems Review of Systems: All systems reviewed & are unremarkable except as noted in HPI & below Physical Exam Physical Exam: General- Not in acute distress Head- atraumatic Eyes- PERRL. ENT- oropharynx clear Neck- supple, no JVD. Lungs- clear to auscultation no wheezing or crackles Heart- regular rate and rhythm; no murmur, no gallop. Abdomen- normal bowel sounds, soft, nontender, no distension Extremities- no pretibial edema, no erythema seen Neuro- alert, oriented PERRL, no facial palsy; no dysarthria; moves extremities Results & Data Results & Data Vital Signs (Past 12 Hours) Vital Signs Temp Pulse Pulse Resp BP BP Pulse Ox 06/20/24 00:03 74 14 165/102 H 95 06/19/24 22:25 60 17 180/90 H 95 06/19/24 20:53 68 20 158/76 H 96 06/19/24 19:43 64 06/19/24 19:29 69 14 149/92 H 97 06/19/24 16:56 37 C 70 19 191/79 H 96 O2 Del Method 06/20/24 00:03 06/19/24 22:25 Room Air 06/19/24 20:53 06/19/24 19:43 06/19/24 19:29 06/19/24 16:56 Room Air Diagnostic Findings Laboratory Results WBC 8.51 K/ul (4.8-10.8) 06/19/24 17:09 RBC 4.20 M/uL (4.20-5.40) 06/19/24 17:09 Hgb 12.3 g/dl (12.0-16.0) 06/19/24 17:09 Hct 38.1 % (37.0-47.0) 06/19/24 17:09 MCV 90.7 fL (80.0-100.0) 06/19/24 17:09 MCH 29.3 pg (25.0-34.0) 06/19/24 17:09 MCHC 32.3 g/dL (32.0-36.0) 06/19/24 17:09 RDW Std Deviation 42.1 fL (36.4-46.3) 06/19/24 17:09 RDW Coeff of Elpidio 12.9 % (11.5-14.5) 06/19/24 17:09 Plt Count 223 K/uL (130-400) 06/19/24 17:09 MPV 10.3 fL (9.4-12.4) 06/19/24 17:09 Immature Gran % (Auto) 0.2 % 06/19/24 17:09 Neut % (Auto) 57.2 % 06/19/24 17:09 Lymph % (Auto) 30.6 % 06/19/24 17:09 [place] % (Auto) 7.8 % 06/19/24 17:09 Eos % (Auto) 3.3 % 06/19/24 17:09 Baso % (Auto) 0.9 % 06/19/24 17:09 Neut # (Auto) 4.87 K/uL (1.40-6.50) 06/19/24 17:09 Lymph # (Auto) 2.60 K/uL (1.20-3.40) 06/19/24 17:09 [place] # (Auto) 0.66 K/uL (0.11-0.59) H 06/19/24 17:09 Eos # (Auto) 0.28 K/uL (0.00-0.50) 06/19/24 17:09 Baso # (Auto) 0.08 K/uL (0.00-0.20) 06/19/24 17:09 Immature Gran # (Auto) 0.02 K/uL (0.01-0.20) 06/19/24 17:09 PT 10.3 Seconds (9.0-12.0) 06/19/24 17:09 INR 0.9 (0.9-1.1) 06/19/24 17:09 APTT 24 Seconds (21-31) 06/19/24 17:09 PTT Ratio 0.9 06/19/24 17:09 Sodium 142 mmol/L (136-145) 06/19/24 17:09 Potassium 4.0 mmol/L (3.5-5.1) 06/19/24 17:09 Chloride 105 mmol/L (98-107) 06/19/24 17:09 Carbon Dioxide 29 mmol/L (21-32) 06/19/24 17:09 Anion Gap 8 (3-11) 06/19/24 17:09 BUN 31 mg/dl (6-23) H 06/19/24 17:09 Creatinine 1.52 mg/dl (0.6-1.2) H 06/19/24 17:09 Est Cr Clr Drug Dosing 28.0 ml/min 06/19/24 17:09 eGFR 33.20 06/19/24 17:09 BUN/Creatinine Ratio 20.4 (10-20) H 06/19/24 17:09 Glucose 170 mg/dl (70-99(Fasting)) H 06/19/24 17:09 Calcium 10.3 mg/dl (8.6-10.3) 06/19/24 17:09 Magnesium 1.5 mg/dl (1.7-2.4) L 06/19/24 17:09 Total Bilirubin 0.6 mg/dl (0.2-1.0) 06/19/24 17:09 AST 34 U/L (13-39) 06/19/24 17:09 ALT 44 U/L (7-52) 06/19/24 17:09 Alkaline Phosphatase 57 U/L (34-104) 06/19/24 17:09 Troponin I High Sens 278.9 pg/ml (0-14) H* 06/19/24 17:09 Total Protein 7.7 gm/dl (6.0-8.3) 06/19/24 17:09 Albumin 4.4 gm/dl (3.4-5.0) 06/19/24 17:09 Globulin 3.3 gm/dl (2.5-4.0) 06/19/24 17:09 Albumin/Globulin Ratio 1.3 (0.9-2) 06/19/24 17:09 Urine Color Yellow 06/19/24 19:28 Urine Appearance Clear (Clear) 06/19/24 19: Urine pH 5.0 (4.5-7.5) 06/19/24 19:28 Ur Specific [place] 1.023 (1.000-1.030) 06/19/24 19:28 Urine Protein 3+ (Negative) H 06/19/24 19:28 Urine Glucose (UA) Negative (Negative) 06/19/24: Urine Ketones Trace (Negative) H 06/19/24 19: Urine Blood Negative (Negative) 06/19/24 19: Urine Nitrite Negative (Negative) 06/19/24 19: Urine Bilirubin Negative (Negative) 06/19/24 19: Urine Urobilinogen Negative (Negative) 06/19/24 19:28 Ur Leukocyte Esterase Negative (Negative) 06/19/24 19:28 Urine WBC (Auto) 0-5 /hpf (0-5) 06/19/24 19:28 Urine RBC (Auto) 0-2 /hpf (0-2) 06/19/24 19:28 U Hyaline Cast (Auto) 0-2 /lpf (0-2) 06/19/24 19:28 U Epithel Cells (Auto) 0-2 /hpf (0-2) 06/19/24 19:28 Urine Bacteria (Auto) None Seen (None Seen) 06/19/24 19:28 Impressions Abdomen/Pelvis CT 06/19/24 19:39 Exam(s): CT ABDOMEN + PELVIS With Contrast EXAM: CT Abdomen and Pelvis With Intravenous Contrast CLINICAL HISTORY: Reason for exam: abd pain, recent uti. TECHNIQUE: Axial computed tomography images of the abdomen and pelvis with intravenous contrast. CTDI is 26.95 mGy and DLP is 1254.92 mGy-cm. Automated exposure control was utilized for the study. A dose lowering technique was utilized adhering to the principles of ALARA. COMPARISON: No relevant prior studies available. FINDINGS: ABDOMEN: Liver: Unremarkable. Gallbladder and bile ducts: Status post cholecystectomy. Pancreas: Unremarkable. Spleen: Unremarkable. Adrenals: Unremarkable. Kidneys and ureters: Cortical atrophy in the kidneys. A few cortical cysts. No ureteral stone or obstructive uropathy. Stomach and bowel: Colonic diverticulosis without acute diverticulitis. PELVIS: Appendix: No findings to suggest acute appendicitis. Bladder: Unremarkable. Reproductive: Unremarkable as visualized. ABDOMEN and PELVIS: Intraperitoneal space: Unremarkable. No free air. No significant fluid collection. Bones/joints: No acute fracture. Soft tissues: Unremarkable. Vasculature: Unremarkable. Lymph nodes: Unremarkable. IMPRESSION: 1. No acute abnormality within the kidneys, ureters, or bladder. 2. Colonic diverticulosis without acute diverticulitis. Electronically signed by: Cleveland Kruse MD 06/19/24 21:19 PM Chest X-Ray 06/20/24 00:37 EXAM: XR chest 1V portable CLINICAL HISTORY: elevated troponin TECHNIQUE: Radiograph of chest was acquired. COMPARISON: 06/15/2024 11:25:18 PACK CHANGER FINDINGS: Blunting of left costophrenic angle. The lungs are clear and well-expanded with no pulmonary infiltrate . The cardiomediastinal silhouette is within normal limits. No acute osseous abnormality. IMPRESSION: 1. Mild interval increase in left pleural effusion Electronically signed by Drake Veloz 06-20-2024 02:15 AM ECG Additional Comments: ECG. Sinus rhythm with marked sinus arrhythmia. ST-T wave abnormality inferior leads. ST depression seen anterolateral leads more pronounced than previous. QTc 438 Code Status & VTE Plan VTE Prophylaxis Plan VTE Prophylaxis will be ordered: Yes
[2024-06-20] MEDS: MAGNESIUM SULFATE / D5W 1 GM/100 ML BAG IV ONE (03:20)
[2024-06-20] MEDS ORDERED: NITROGLYCERIN SL 0.4 MG/TAB TAB SL PRN (04:24)
[2024-06-20] MEDS ORDERED: ACETAMINOPHEN 325 MG TAB PO PRN (04:24)
[2024-06-20 05:58] LABS: Basophils # (auto) 0.03 K/uL (0.00-0.20); Basophils % (auto) 0.4 %; Eosinophils % (auto) 1.2 %; Hematocrit (blood only) 30.2 % (37.0-47.0); Hemoglobin 9.8 g/dl (12.0-16.0); Immature Granulocytes # (auto) 0.03 K/uL (0.01-0.20); Immature Granulocytes % (auto) 0.4 %; Lymphocytes # (auto) 1.99 K/uL (1.20-3.40); Lymphocytes % (auto) 23.5 %; Mean Corpuscular Hemoglobin 30.1 pg (25.0-34.0); Mean Corpuscular Hgb Conc 32.5 g/dL (32.0-36.0); Mean Corpuscular Volume 92.6 fL (80.0-100.0); Mean Platelet Volume 10.5 fL (9.4-12.4); Monocytes # (auto) 0.34 K/uL (0.11-0.59); Neutrophils # (auto) 5.99 K/uL (1.40-6.50); Neutrophils % (auto) 70.5 %; Platelet Count 178 K/uL (130-400); RDW Coefficient of Variation 12.8 % (11.5-14.5); RDW Standard Deviation 43.5 fL (36.4-46.3); Red Blood Count 3.26 M/uL (4.20-5.40); White Blood Count 8.48 K/ul (4.8-10.8)
[2024-06-20 06:07] LABS: BUN Creatinine Ratio 20.3 (10-20); Calcium 8.4 mg/dl (8.6-10.3); Creatinine Clr Calc Pharmacy 30.8 ml/min; Magnesium 1.9 mg/dl (1.7-2.4); Potassium 4.1 mmol/L (3.5-5.1)
[2024-06-20 06:18] LABS: Troponin I High Sensitivity 207.1 pg/ml (0-14)
[2024-06-20] MEDS: LEVOTHYROXINE SODIUM 75 MCG TABLET PO SCH (06:45)
[2024-06-20 08:58] LABS: Chol HDL Ratio 3.7 (0-5)
[2024-06-20 09:03] LABS: ANTI-Xa, UFH(UnfractionatedHep 0.37 IU/ml (0.3-0.7)
[2024-06-20 09:29] LABS: Estimated Average Glucose 140 mg/dl; Hemoglobin A1C 6.5 % (4.5-5.6)
[2024-06-20] MEDS: MAGNESIUM CHLORIDE W/CALCIUM 64MG DELAYED REL TAB PO SCH (09:31)
[2024-06-20] MEDS: ASPIRIN 81 MG ECTAB PO SCH (09:31)
[2024-06-20] MEDS: FERROUS SULFATE 325 MG TAB PO SCH (09:31)
[2024-06-20] MEDS: LOSARTAN POTASSIUM 25 MG TAB PO SCH (09:32)
[2024-06-20] MEDS: amLODIPine BESYLATE 5 MG TAB PO SCH (09:32)
[2024-06-20] MEDS: NYSTATIN POWDER 15GM BTL EXT SCH (09:39)
[2024-06-20] MEDS: PATIROMER CALCIUM SORBITEX 8.4 GM PACK PO SCH ×2 (10:07→12:25)
--- NOTE | 2024-06-20 13:26 | Cardiology Consultation ---
Date of Consultation June 20, 2024 Assessment & Plan (1) Abdominal discomfort: (2) Hypertension: (3) Elevated troponin: (4) Chest pain: Plan Patient admitted for "chest pain", however after discussion with the patient, the location of her pain is more epigastric in nature without radiation or associated symptoms. On admission she was found to have elevated creatinine and BUN, suggesting of SOL and dehydration, possibly related to recent UTI and treatment. Creatinine improved this morning and back to baseline. HS troponin minimally elevated at 278 and trending downward. She has a chronically abnormal EKG that is consistent with LVH strain pattern. When compared with past EKG's, findings are stable from prior admissions. She was started on IV heparin upon admission due to complaints and minimally elevated troponin. Her echo this morning demonstrated normal LVEF, no wall motion abnormalities She remains symptom free this morning at time of consult. Hbg dropped from 12.3 to 9.8 overnight. No change in bowels - melena or hematochezia. Would stop IV heparin. Continue ASA, statin, losartan and amlodipine. Case to be discussed with Dr. Stein. Further recommendations after his evaluation I spent a total of 60 minutes on the date of service in preparation, delivery, and documentation of the care provided to this patient, excluding any time spent in the performance of separately billed services. Anjali Jarvis PA-C Department of Cardiology, [facility] This chart was completed in part utilizing Speech Voice Recognition Software. Grammatical errors, random word insertions, pronoun errors, and incomplete sentences are an occasional consequence of this system due to software limitations, ambient noise, and hardware issues. Any formal questions or concerns about the content, text, or information contained within the body of this dictation should be directly addressed to the provider for clarification. Supervising Physician Co-Signing Physician Notes Attending attestation: Case reviewed with the advanced practitioner. I have personally performed a history and physical examination on the patient. I have reviewed the advanced practitioner's documentation on the date of service referenced in note, and I agree with, and take responsibility for the plan of care. Elevated high-sensitivity troponin likely reflective myocardial strain without symptoms to suggest brooke angina. Her is at the bedside. Patient is a poor historian I am not certain if there is some degree of underlying cognitive impairment or if there is a degree of delirium. EKG is abnormal but relatively unchanged compared to previous tracings. Dobutamine stress echocardiogram performed for workup of similar EKG findings in August, was negative for inducible ischemia. Repeat resting echocardiogram performed today is reassuring with findings of mild concentric left atrial hypertrophy, normal LV wall motion without regional wall motion abnormalities, mild mitral regurgitation normal LVEF in the range of 55 to 60%. Given frailty, bleeding risks, I think it is prudent to monitor her off of unfractioned heparin. Continue medical therapy with aspirin, amlodipine, losartan, atorvastatin. I spent a total of 20 minutes coordinating, documenting, and providing care for this patient excluding time spent in the performance of separately billed services or time spent by another provider. Alberto Stein DO History of Present Illness Reason for Consultation: Chest pain; Elevated troponin Requesting Physician: Lauryn Owen Attending Physician: Dr. Stein History of Present Illness Patient is an 88-year-old female hospitalized for weakness and epigastric/chest pain starting last evening. Past medical history notable for hypertension, type 2 diabetes mellitus, obstructive sleep apnea, recurrent urinary tract infections with chronic renal insufficiency. She was previously evaluated by cardiology during past admissions, most recently in Jan 2024 due to abnormal EKG. She has chronically abnormal EKG with findings consistent with LVH/strain pattern. She has had ischemic work up due to abnormal EKG and risk factors, most recently in August 2023 with negative DSE and preserved LVEF. Several days ago, patient was diagnosed with UTI during another ER visit and treated with antibiotics. Last night, patient reported abdominal pain/epigastric pain. She also reported chest pain, but when asked where this pain was located, she referred to the epigastric region. She came to the ER for evaluation. EKG demonstrated NSR with ST/T wave abnormality, consistent with past findings. T waves were more prominent on this EKG compared with last week in the ER, but when compared with prior EKG's over krista last year, all findings were stable. Creatinine was high above baseline around 1.6 and findings of dehydration noted on Urinalysis. No infection noted. HS troponin drawn and minimally elevated at [id number]. She was started on IV heparin as a precaution for possible NSTEMI By the time she was admitted she was chest pain free. Echo this morning revealed normal LVEF, no wall motion abnormalities. At time of consult, patient resting in bed comfortably. She denies recurrent chest pain or epigastric pain. No palpitations. BP has been fairly well controlled since admission. Hbg dropped since admission from 12.3 to 9.8. No melena or hematochezia. Abdominal CT was negative. Allergies Allergy/AdvReac Type Severity Reaction Status Date / Time corn Allergy Severe Diarrhea Unverified 01/27/24 13:47 ciprofloxacin Allergy Intermediate RASH Verified 01/27/24 13:47 BENEDICT Inhibitors AdvReac Intermediate COUGH Verified 01/27/24 13:47 metformin AdvReac Intermediate GI SYMPTOMS Verified 01/27/24 13:47 Home Medications Medication Instructions Recorded Confirmed Type amlodipine 5 mg tablet 5 mg PO DAILY 06/20/24 06/20/24 History aspirin 81 mg tablet,delayed 81 mg PO DAILY 06/20/24 06/20/24 History release dulaglutide 0.75 mg/0.5 mL 0.75 mg subcut WK 06/20/24 06/20/24 History subcutaneous pen injector (Trulicity) ferrous sulfate 325 mg (65 mg 325 mg PO DAILY 06/20/24 06/20/24 History iron) tablet levothyroxine 75 mcg tablet 75 mcg PO DAILY 06/20/24 06/20/24 History losartan 25 mg tablet 25 mg PO DAILY 06/20/24 06/20/24 History magnesium chloride 64 mg 64 mg PO BID 06/20/24 06/20/24 History (magnesium chloride) tablet,delayed release nystatin 100,000 unit/gram topical 1 applic topical TID 06/20/24 06/20/24 History powder (Nyamyc) patiromer calcium sorbitex 8.4 8.4 g PO Q OTHER DAY 06/20/24 06/20/24 History gram oral powder packet (Veltassa) Patient History Medical History Chest pain Abdominal pain, LLQ (left lower quadrant) HTN (hypertension) CKD (chronic kidney disease) Complicated UTI (urinary tract infection) History of ESBL E. coli infection Hypertensive urgency IgM lambda paraproteinemia Surgical History History of gynecologic surgery anterior colporrhaphy History of hysteroscopy Status post tubal ligation History of total bilateral knee replacement (TKR) History of knee surgery History of appendectomy History of dilation and curettage S/P cholecystectomy Family History Mother , 85 Heart disease Diabetes Father , 65 Pancreatic cancer Sister Uterine cancer Breast cancer Denies family history of Ovarian cancer Colorectal cancer Social History Smoking Status: Former smoker Tobacco Type: Cigarettes Second Hand Exposure: No; Do You Dip or Chew Tobacco: No; Hx Alcohol Use: No Hx Substance Use: No Preferred Language: Nepali Communication Ability: Effective Life Enrichment Assistant Required: No Beliefs That Will Affect Care: None marital status: Current Living Situation: Spouse Current Living Situation Comment: at home current occupational status: retired Other Information That Helps Us Care for You: No Feels Safe at Home: Yes Safety Concerns: Feels Safe At This Time Assistive Devices: Cane and Walker Review of Systems Review of Systems: All systems reviewed & are unremarkable except as noted in HPI & below Physical Exam Constitutional: WD/WN, vitals as above well nourished; no acute distress Neck: trachea midline, no thyromegaly Respiratory: normal respiratory effort Auscultation: + diminished lung sounds; no crackles and no rales Cardiovascular: Rate/Rhythm: regular rate and regular rhythm Heart Sounds: normal S1 and normal S2; no murmur Vessels: no JVD Extremities: no edema Gastrointestinal (Abdomen): normal bowel sounds, soft, nontender, no hepatosplenomegaly Neurologic: PERRL, EOMI, accommodation nl, no face palsy, no dysarthria Results & Data Vital Signs (Past 12 Hours) Vital Signs Temp Pulse Pulse Pulse Resp BP BP 06/20/24 13:02 36.4 C L 70 18 153/74 H 06/20/24 12:00 77 20 142/74 H 06/20/24 11:06 63 19 158/94 H 06/20/24 10:03 62 18 159/73 H 06/20/24 09:30 36.5 C 64 15 133/66 06/20/24 09:15 56 L 06/20/24 08:00 58 L 19 122/66 06/20/24 07:51 59 L 16 140/63 06/20/24 07:45 57 L 19 140/63 06/20/24 07:18 59 L 17 06/20/24 06:00 138/72 06/20/24 05:48 62 18 06/20/24 05:45 58 L 16 06/20/24 05:43 59 L 18 140/64 06/20/24 05:30 57 L 15 06/20/24 05:24 59 L 16 06/20/24 05:22 140/64 06/20/24 05:03 71 14 06/20/24 05:00 06/20/24 05:00 69 16 130/65 06/20/24 04:56 130/65 06/20/24 04:48 61 16 06/20/24 04:25 65 91 H 16 129/70 06/20/24 04:24 64 21 06/20/24 04:24 129/70 06/20/24 04:24 129/70 06/20/24 04:24 129/70 06/20/24 04:24 129/70 06/20/24 04:24 06/20/24 04:03 60 21 06/20/24 03:57 66 19 06/20/24 03:33 56 L 31 H 06/20/24 03:24 64 21 06/20/24 03:15 60 19 06/20/24 03:14 60 06/20/24 03:00 74 12 06/20/24 02:00 66 22 147/73 H Pulse Ox Pulse Ox O2 Del Method O2 Del Method O2 Flow Rate O2 Flow Rate 06/20/24 13:02 93 Room Air 06/20/24 12:00 95 Room Air 06/20/24 11:06 95 Room Air 06/20/24 10:03 97 06/20/24 09:30 97 Nasal Cannula 06/20/24 09:15 06/20/24 08:00 97 Nasal Cannula 2 06/20/24 07:51 97 06/20/24 07:45 97 Nasal Cannula 2 06/20/24 07:18 96 06/20/24 06:00 06/20/24 05:48 96 06/20/24 05:45 96 06/20/24 05:43 96 Nasal Cannula 2 06/20/24 05:30 93 06/20/24 05:24 94 Nasal Cannula 2 06/20/24 05:22 06/20/24 05:03 95 06/20/24 05:00 Nasal Cannula 06/20/24 05:00 95 Nasal Cannula 2 06/20/24 04:56 02/13/25 04:48 93 06/20/24 04:25 98 Nasal Cannula 2 06/20/24 04:24 98 06/20/24 04:24 06/20/24 04:24 06/20/24 04:24 06/20/24 04:24 06/20/24 04:24 98 Nasal Cannula 2 06/20/24 04:03 06/20/24 03:57 06/20/24 03:33 06/20/24 03:24 06/20/24 03:15 06/20/24 03:14 06/20/24 03:00 97 06/20/24 02:00 94 Laboratory Results Cardiac Enzymes 06/19/24 06/20/24 06/20/24 Range/Units 17:09 05:25 10:52 AST 34 (13-39) U/L Troponin I High Sens 278.9 H* 207.1 H* D 170.8 H* (0-14) pg/ml Coagulation 06/19/24 Range/Units 17:09 PT 10.3 (9.0-12.0) Seconds APTT 24 (21-31) Seconds Lipids 06/20/24 Range/Units 08:16 Triglycerides 124 (0-150) mg/dl Cholesterol 162 (0-200) mg/dl HDL Cholesterol 44 mg/dl Cholesterol/HDL Ratio 3.7 (0-5) CBC 06/19/24 06/20/24 Range/Units 17:09 05:25 WBC 8.51 8.48 (4.8-10.8) K/ul RBC 4.20 3.26 L (4.20-5.40) M/uL Hgb 12.3 9.8 L (12.0-16.0) g/dl Hct 38.1 30.2 L (37.0-47.0) % Plt Count 223 178 (130-400) K/uL Neut # (Auto) 4.87 5.99 (1.40-6.50) K/uL Lymph # (Auto) 2.60 1.99 (1.20-3.40) K/uL [place] # (Auto) 0.66 H 0.34 (0.11-0.59) K/uL Eos # (Auto) 0.28 0.10 (0.00-0.50) K/uL Baso # (Auto) 0.08 0.03 (0.00-0.20) K/uL Comprehensive Metabolic Panel 06/19/24 06/20/24 Range/Units 17:09 05:25 Sodium 142 139 (136-145) mmol/L Potassium 4.0 4.1 (3.5-5.1) mmol/L Chloride 105 111 H (98-107) mmol/L Carbon Dioxide 29 25 (21-32) mmol/L BUN 31 H 28 H (6-23) mg/dl Creatinine 1.52 H 1.38 H (0.6-1.2) mg/dl Glucose 170 H 152 H (70-99(Fasting)) mg/dl Calcium 10.3 8.4 L (8.6-10.3) mg/dl AST 34 (13-39) U/L ALT 44 (7-52) U/L Alkaline Phosphatase 57 (34-104) U/L Total Protein 7.7 (6.0-8.3) gm/dl Albumin 4.4 (3.4-5.0) gm/dl Intake and Output 06/19/24 06/20/24 06/20/24 22:59 06:59 14:59 Intake Total 250 / 1862.5 1612.5 / 1862.5 164.533 / 164.533 Output Total 200 / 200 Balance 250 / 1862.5 1612.5 / 1862.5 -35.467 / -35.467 Intake: IV 250 / 1862.5 1612.5 / 1862.5 164.533 / 164.533 Acetaminophen 1,000 mg In 100 100 / 100 ml @ 400 mls/hr IV NOW STA Rx#: [id number] Heparin 36879 Unit/500 ml D5w 164.533 / 164.533 25,000 units In 500 ml @ 800 UNITS/HR 16 mls/hr IV .Q24H [facility] Rx#:[id number] Magnesium Sulfate / D5w 1 gm In 100 / 200 100 / 200 100 ml @ 50 mls/hr IV ONE ONE Rx#:[id number] Sodium Chloride 0.9% 1,000 ml @ 1512.5 / 1512.5 125 mls/hr IV .Q8H [facility] Rx#: [id number] cefTRIAXone SODIUM 2,000 mg In 50 / 50 50 ml @ 100 mls/hr IV NOW STA Rx#:[id number] Oral 0 / 0 Output: Urine 200 / 200 Other: Weight 77.9 kg 77.9 kg Weight Measurement Method Chair Scale Built in Bedscale Diagnostic Findings Telemetry reviewed: NSR, occ PVC. No arrhyhtmias EKG reviewed from 06/19/24: NSR with sinus arrhythmia ST/T wave abnormality in inferior and anterolateral leads. This is more pronounced than prior EKG in Jun 2024 HOWEVER, this is very similar to past EKG's in Jan 2024, October 2023, September 2023. Echo report reviewed dated Jun 20, 2024: Mild concentric LVH normal wall motion LVEF 55-60% LA is mildly dilated Mild MR No pulm hypertension Grade I diastolic dysfunction Chest X-Ray 06/20/24 00:37 IMPRESSION: 1. Mild interval increase in left pleural effusion Electronically signed by Drake Veloz 06-20-2024 02:15 AM Medications Administered Current Inpatient Medications Acetaminophen (Acetaminophen 325 Mg Tab) 650 mg PO Q4H PRN PRN Reason: Pain or Fever Stop: 07/20/24 04:23 Amlodipine Besylate (Amlodipine Besylate 5 Mg Tab) 5 mg PO DAILY [facility] Stop: 07/20/24 08:59 Last Admin: 06/20/24 09:32 Dose: 5 mg Aspirin (Aspirin 81 Mg Ectab) 81 mg PO DAILY [facility] Stop: 07/20/24 08:59 Last Admin: 06/20/24 09:31 Dose: 81 mg Atorvastatin Calcium (Atorvastatin 20 Mg Tab) 20 mg PO QAM [facility] Stop: 07/20/24 12:14 Ferrous Sulfate (Ferrous Sulfate 325 Mg Tab) 325 mg PO DAILY [facility] Stop: 07/20/24 08:59 Last Admin: 06/20/24 09:31 Dose: 325 mg Levothyroxine Sodium (Levothyroxine Sodium 75 Mcg Tablet) 75 mcg PO DAILYBB [facility] Stop: 07/20/24 06:29 Last Admin: 06/20/24 06:45 Dose: 75 mcg Losartan Potassium (Losartan Potassium 25 Mg Tab) 25 mg PO DAILY [facility] Stop: 07/20/24 08:59 Last Admin: 06/20/24 09:32 Dose: 25 mg Magnesium Chloride (Magnesium Chloride W/Calcium 64mg Delayed Rel Tab) 64 mg PO BID [facility] Stop: 07/20/24 08:59 Last Admin: 06/20/24 09:31 Dose: 64 mg Nitroglycerin (Nitroglycerin Sl 0.4 Mg/Tab Tab) 0.4 mg SL Q5M PRN PRN Reason: Chest Pain Stop: 07/20/24 04:23 Nystatin (Nystatin Powder 15gm Btl) 1 appln EXT TID [facility] Stop: 07/20/24 08:59 Last Admin: 06/20/24 09:39 Dose: 1 appln Patiromer (Patiromer Calcium Sorbitex 8.4 Gm Pack) 8.4 gm PO Q48H [facility] Stop: 07/20/24 11:59 Last Admin: 06/20/24 12:25 Dose: 8.4 gm (4) Chest pain Chest pain type: unspecified Qualified Code(s): R07.9 - Chest pain, unspecified
--- NOTE | 2024-06-20 13:46 | Communication Note ---
Date of Service: June 20, 2024 Patient seen and examined at bedside She is lying in the bed comfortably; not in distress She denies any chest pain at this time. No complaints of shortness of breath. No significant events overnight On physical examination; Constitutional: Alert oriented x 3; not in distress. Respiratory: normal respiratory effort, lungs clear to auscultation, no wheeze, rales, rhonchi. Normal insp/exp effort, no accessory muscle use Cardiovascular: RRR, no murmur, no edema Vessels: no JVD or carotid bruit Chest: normal inspection of chest Abdomen: normal bowel sounds, soft, nontender, no hepatosplenomegaly Musculoskeletal: no cyanosis or clubbing, extremities motor strength 5/5 Skin: no rashes, warm and dry normal turgor Neurologic: PERRL, EOMI, accommodation nl, no face palsy, no dysarthria CN's II- XI intact bilaterally and moves all extremities Psychiatric: A+Ox3, euthymic affect Assessment/plan NSTEMI Patient presented with left-sided chest pain EKG on admission showed normal sinus rhythm with ST and T wave changes in inferior lateral leads. Comparison with previous EKG shows similar findings. Echocardiogram does not show any wall motion abnormalities High-sensitivity troponin elevated to 278 on admission; down trended Continue on aspirin, statin added. Continue on heparin drip. Also continue on losartan Telemonitoring Type 2 diabetes mellituscontinue Trulicity; HbA1c of 6.5% Continue other home meds Please note the above document was generated using voice recognition software. It may contain grammatical, syntax or spelling errors. Any formal questions or concerns about the content, text or information contained within the body of this dictation should be directly addressed to the provider for clarification
[2024-06-20] MEDS: ATORVASTATIN 20 MG TAB PO SCH (14:06)
--- NOTE | 2024-06-20 14:51 | Electrocardiogram Report ---
Test Reason : Blood Pressure : */* mmHG Vent. Rate : 66 BPM Atrial Rate : 66 BPM P-R Int : 142 ms QRS Dur : 82 ms QT Int : 418 ms P-R-T Axes : 45 28 192 degrees QTcB Int : 438 ms Sinus rhythm with marked sinus arrhythmia Abnormal ECG When compared with ECG of 15-Jun-2024 12:00, Premature ventricular complexes are no longer Present Inverted T waves have replaced nonspecific T wave abnormality in Inferior leads T wave inversion more evident in Anterior leads Confirmed by Gómez Victoria ([id number]) on 06/20/2024 2:50:56 PM Referred By: Confirmed By: Gómez Victoria
[2024-06-20 16:45] LABS: ANTI-Xa, UFH(UnfractionatedHep < 0.10 IU/ml (0.3-0.7)
[2024-06-21 07:17] LABS: Basophils # (auto) 0.03 K/uL (0.00-0.20); Basophils % (auto) 0.5 %; Eosinophils # (auto) 0.29 K/uL (0.00-0.50); Eosinophils % (auto) 4.8 %; Hematocrit (blood only) 30.9 % (37.0-47.0); Hemoglobin 10.1 g/dl (12.0-16.0); Immature Granulocytes # (auto) 0.03 K/uL (0.01-0.20); Immature Granulocytes % (auto) 0.5 %; Lymphocytes # (auto) 1.77 K/uL (1.20-3.40); Lymphocytes % (auto) 29.2 %; Mean Corpuscular Hemoglobin 29.9 pg (25.0-34.0); Mean Corpuscular Hgb Conc 32.7 g/dL (32.0-36.0); Mean Corpuscular Volume 91.4 fL (80.0-100.0); Mean Platelet Volume 10.5 fL (9.4-12.4); Monocytes # (auto) 0.52 K/uL (0.11-0.59); Monocytes % (auto) 8.6 %; Neutrophils # (auto) 3.43 K/uL (1.40-6.50); Neutrophils % (auto) 56.4 %; Platelet Count 186 K/uL (130-400); RDW Coefficient of Variation 12.4 % (11.5-14.5); RDW Standard Deviation 41.5 fL (36.4-46.3); Red Blood Count 3.38 M/uL (4.20-5.40); White Blood Count 6.07 K/ul (4.8-10.8)
[2024-06-21 07:41] LABS: BUN Creatinine Ratio 15.6 (10-20); Calcium 9.2 mg/dl (8.6-10.3); Creatinine Clr Calc Pharmacy 30.4 ml/min; Potassium 4.4 mmol/L (3.5-5.1)
[2024-06-21] MEDS: LOSARTAN POTASSIUM 50 MG TAB PO SCH (09:42)
[2024-06-21 12:22] VITALS: BP 138/97; PULSE 89; RESP 20; TEMP 97.7; O2SAT 98
--- NOTE | 2024-06-21 12:29 | Cardiology Progress Note ---
Date of Service June 21, 2024 Assessment & Plan (1) Abdominal discomfort: (2) Hypertension: (3) Elevated troponin: (4) Chest pain: Plan 06/20/24: Patient admitted for "chest pain", however after discussion with the patient, the location of her pain is more epigastric in nature without radiation or associated symptoms. On admission she was found to have elevated creatinine and BUN, suggesting of SOL and dehydration, possibly related to recent UTI and treatment. Creatinine improved this morning and back to baseline. HS troponin minimally elevated at 278 and trending downward. She has a chronically abnormal EKG that is consistent with LVH strain pattern. When compared with past EKG's, findings are stable from prior admissions. She was started on IV heparin upon admission due to complaints and minimally elevated troponin. Her echo this morning demonstrated normal LVEF, no wall motion abnormalities She remains symptom free this morning at time of consult. Hbg dropped from 12.3 to 9.8 overnight. No change in bowels - melena or hematochezia. Would stop IV heparin. Continue ASA, statin, losartan and amlodipine. 06/21/24: No recurrent chest pain/epigastric pain overnight. Elevated HS troponin consistent with demand ischemic event. Not ACS. Possibly hypertensive induced. Echo with preserved LVEF, no wall motion abnormalities. Losartan increased to 50 mg daily this morning to aid with HTN. Continue amlodipine Continue ASA and statin. No further cardiac testing warranted at this time. Stable for discharge, likely later today. Case discussed with Dr. Stein. I spent a total of 30 minutes on the date of service in preparation, delivery, and documentation of the care provided to this patient, excluding any time spent in the performance of separately billed services. Anjali Jarvis PA-C Department of Cardiology, [facility] This chart was completed in part utilizing Speech Voice Recognition Software. Grammatical errors, random word insertions, pronoun errors, and incomplete sentences are an occasional consequence of this system due to software limitations, ambient noise, and hardware issues. Any formal questions or concerns about the content, text, or information contained within the body of this dictation should be directly addressed to the provider for clarification. Admission and Anticipated Discharge Date Admission Date: June 20, 2024 Supervising Physician Co-Signing Physician Notes Attending attestation: Case reviewed with the advanced practitioner. I have personally performed a history and physical examination on the patient. I have reviewed the advanced practitioner's documentation on the date of service referenced in note, and I agree with, and take responsibility for the plan of care. I spent a total of 20 minutes coordinating, documenting, and providing care for this patient excluding time spent in the performance of separately billed servic es or time spent by another provider. Alberto Stein, Subjective Patient resting in bed. feeling well. No recurrent chest pain/abdominal pain. w ants to go home. Review of Systems Review of Systems: All systems reviewed & are unremarkable except as noted in HPI & below Physical Exam Constitutional: WD/WN, vitals as above well nourished; no acute distress Neck: trachea midline, no thyromegaly Respiratory: normal respiratory effort Auscultation: + diminished lung sounds; no crackles and no rales Cardiovascular: Rate/Rhythm: regular rate and regular rhythm Heart Sounds: normal S1 and normal S2; no murmur Vessels: no JVD Extremities: no edema Gastrointestinal (Abdomen): normal bowel sounds, soft, nontender, no hepatosplenomegaly Neurologic: PERRL, EOMI, accommodation nl, no face palsy, no dysarthria Results & Data Vital Signs (Past 12 Hours) Vital Signs Temp Pulse Pulse Resp BP BP Pulse Ox 06/21/24 10:57 36.7 C 77 18 156/77 H 148/83 H 97 06/21/24 09:13 66 06/21/24 08:00 36.7 C 77 18 148/83 H 97 06/21/24 03:36 36.7 C 62 16 150/74 H 93 O2 Del Method 06/21/24 10:57 06/21/24 09:13 06/21/24 08:00 Room Air 06/21/24 03:36 Room Air Laboratory Results Cardiac Enzymes 06/20/24 Range/Units 17:31 Troponin I High Sens 133.9 H* D (0-14) pg/ml CBC 06/21/24 Range/Units 06:40 WBC 6.07 (4.8-10.8) K/ul RBC 3.38 L (4.20-5.40) M/uL Hgb 10.1 L (12.0-16.0) g/dl Hct 30.9 L (37.0-47.0) % Plt Count 186 (130-400) K/uL Neut # (Auto) 3.43 (1.40-6.50) K/uL Lymph # (Auto) 1.77 (1.20-3.40) K/uL [place] # (Auto) 0.52 (0.11-0.59) K/uL Eos # (Auto) 0.29 (0.00-0.50) K/uL Baso # (Auto) 0.03 (0.00-0.20) K/uL Comprehensive Metabolic Panel 06/21/24 Range/Units 06:40 Sodium 141 (136-145) mmol/L Potassium 4.4 (3.5-5.1) mmol/L Chloride 108 H (98-107) mmol/L Carbon Dioxide 27 (21-32) mmol/L BUN 22 (6-23) mg/dl Creatinine 1.41 H (0.6-1.2) mg/dl Glucose 134 H (70-99(Fasting)) mg/dl Calcium 9.2 (8.6-10.3) mg/dl Intake and Output 06/20/24 06/21/24 06/21/24 22:59 06:59 14:59 Intake Total 50 / 314.533 100 / 314.533 Balance 50 / 114.533 100 / 114.533 Intake: Oral 50 / 150 100 / 150 Other: # Unmeasured Voids 1 2 Weight 79 kg 79 kg Weight Measurement Method Built in [facility] Patient Weight 06/22/24 06:59 Weight 79 kg Diagnostic Findings Telemetry reviewed: NSR, no arrhythmias Medications Administered Current Inpatient Medications Acetaminophen (Acetaminophen 325 Mg Tab) 650 mg PO Q4H PRN PRN Reason: Pain or Fever Stop: 07/20/24 04:23 Amlodipine Besylate (Amlodipine Besylate 5 Mg Tab) 5 mg PO DAILY [facility] Stop: 07/20/24 08:59 Last Admin: 06/21/24 09:41 Dose: 5 mg Aspirin (Aspirin 81 Mg Ectab) 81 mg PO DAILY [facility] Stop: 07/20/24 08:59 Last Admin: 06/21/24 09:41 Dose: 81 mg Atorvastatin Calcium (Atorvastatin 20 Mg Tab) 20 mg PO QAM [facility] Stop: 07/20/24 12:14 Last Admin: 06/21/24 07:43 Dose: 20 mg Ferrous Sulfate (Ferrous Sulfate 325 Mg Tab) 325 mg PO DAILY [facility] Stop: 07/20/24 08:59 Last Admin: 06/21/24 07:43 Dose: 325 mg Levothyroxine Sodium (Levothyroxine Sodium 75 Mcg Tablet) 75 mcg PO DAILYBB [facility] Stop: 07/20/24 06:29 Last Admin: 06/21/24 06:15 Dose: 75 mcg Losartan Potassium (Losartan Potassium 50 Mg Tab) 50 mg PO DAILY [facility] Stop: 07/21/24 08:59 Last Admin: 06/21/24 09:42 Dose: 50 mg Magnesium Chloride (Magnesium Chloride W/Calcium 64mg Delayed Rel Tab) 64 mg PO BID [facility] Stop: 07/20/24 08:59 Last Admin: 06/21/24 07:44 Dose: 64 mg Nitroglycerin (Nitroglycerin Sl 0.4 Mg/Tab Tab) 0.4 mg SL Q5M PRN PRN Reason: Chest Pain Stop: 07/20/24 04:23 Nystatin (Nystatin Powder 15gm Btl) 1 appln EXT TID [facility] Stop: 07/20/24 08:59 Last Admin: 06/21/24 07:44 Dose: 1 appln Patiromer (Patiromer Calcium Sorbitex 8.4 Gm Pack) 8.4 gm PO Q48H [facility] Stop: 07/20/24 11:59 Last Admin: 06/20/24 12:25 Dose: 8.4 gm (4) Chest pain Chest pain type: unspecified Qualified Code(s): R07.9 - Chest pain, unspecified
--- NOTE | 2024-06-21 12:45 | Electrocardiogram Report ---
Test Reason : Blood Pressure : */* mmHG Vent. Rate : 69 BPM Atrial Rate : 69 BPM P-R Int : 154 ms QRS Dur : 88 ms QT Int : 418 ms P-R-T Axes : 33 18 168 degrees QTcB Int : 447 ms Normal sinus rhythm with sinus arrhythmia Abnormal ECG When compared with ECG of 19-Jun-2024 17:05, No significant change was found Confirmed by Gómez Victoria ([id number]) on 06/21/2024 12:45:31 PM Referred By: REFERRED SELF Confirmed By: Gómez Victoria
--- NOTE | 2024-06-21 13:18 | Discharge Summary ---
Date of Service June 21, 2024 Admission HPI Per Admitting Provider 88-year-old female with past medical history significant for type 2 diabetes, diabetic neuropathy, hyperlipidemia, hypothyroidism, obstructive sleep apnea on CPAP, CKD stage IV, hypertension, paroxysmal supraventricular tachycardia, GERD, B12 deficiency, kyphosis, mild dementia, anemia of chronic kidney disease, pernicious anemia, history of COVID, history of ESBL UTI presents with abdominal pain and also left lower chest pain and found to elevated troponin. Patient was recently in the ER with urinary symptoms and because she wanted to be discharged from the ER and with history of ESBL she was given a dose of fosfomycin. Patient says today she started developing abdominal pain in the upper abdomen and probably in the left lower chest and as it was not getting better she came to the ER. In the ED UA was okay. CT scan of abdominal pelvis was okay. EKG showed ST depressions in lateral leads and also troponin came back as 278. Currently resting comfortably and hemodynamic stable. Patient states currently pain is improved. Denies any fevers. Currently no headache. No sore throat. No cough. Denies shortness of breath. Normal bowel and bladder movements. Hemodynamics are okay. Past medical history. As mentioned above Past surgical history. Bilateral knee arthroplasty. Colonoscopy. Colonoscopy biopsy. Dilatation and curettage. EGD. EGD with biopsy. Appendectomy .cholecystectomy. Social history. . Quit smoking 1979. No alcohol use. No drug use. Family history. Mother had Alzheimer's disease. Father had pancreatic cancer. Brother had throat cancer. Sister had breast cancer Admission Exam Per Admitting Provider General- Not in acute distress Head- atraumatic Eyes- PERRL. ENT- oropharynx clear Neck- supple, no JVD. Lungs- clear to auscultation no wheezing or crackles Heart- regular rate and rhythm; no murmur, no gallop. Abdomen- normal bowel sounds, soft, nontender, no distension Extremities- no pretibial edema, no erythema seen Neuro- alert, oriented PERRL, no facial palsy; no dysarthria; moves extremities Principal Diagnosis Elevated troponin Chest pain Discharge Exam Constitutional: WD/WN, vitals as above, NAD, sitting up in bed, pleasant, conversing easily Respiratory: normal respiratory effort, lungs clear to auscultation, no wheeze, rales, rhonchi. Normal insp/exp effort, no accessory muscle use Cardiovascular: RRR, no murmur, no edema Vessels: no JVD or carotid bruit Chest: normal inspection of chest Abdomen: normal bowel sounds, soft, nontender, no hepatosplenomegaly Musculoskeletal: no cyanosis or clubbing, extremities motor strength 5/5 Skin: no rashes, warm and dry normal turgor Neurologic: PERRL, EOMI, accommodation nl, no face palsy, no dysarthria CN's II- XI intact bilaterally and moves all extremities Psychiatric: A+Ox3, euthymic affect Discharge Data Allergies Allergy/AdvReac Type Severity Reaction Status Date / Time corn Allergy Severe Diarrhea Unverified 01/27/24 13:47 ciprofloxacin Allergy Intermediate RASH Verified 01/27/24 13:47 BENEDICT Inhibitors AdvReac Intermediate COUGH Verified 01/27/24 13:47 metformin AdvReac Intermediate GI SYMPTOMS Verified 01/27/24 13:47 Consultations 06/20/24 00:37 ED Decision to Admit Stat 06/20/24 08:00 Consult Cardiology Routine Ordered Studies 06/19/24 19:39 CT abd pelvis IV con only Stat Hospital Course (1) NSTEMI (non-ST elevated myocardial infarction): Plan 88-year-old female with past medical history significant for type 2 diabetes, diabetic neuropathy, hyperlipidemia, hypothyroidism, obstructive sleep apnea on CPAP, CKD stage IV, hypertension, paroxysmal supraventricular tachycardia, GERD, B12 deficiency, kyphosis, mild dementia, anemia of chronic kidney disease, pernicious anemia, history of COVID, history of ESBL UTI presents with abdominal pain and also left lower chest pain and found to elevated troponin. EKG on admission showed normal sinus rhythm with ST and T wave changes in inferior lateral leads. Comparison with previous EKG shows similar findings. Echocardiogram didn't show any wall motion abnormalities High-sensitivity troponin elevated to 278 on admission; down trended Cardiology was consulted for comanagement; Lipitor was added to patient's medication regimen. Patient did not have any recurrence of chest pain throughout the hospitalization. Telemetry did not show any arrhythmia. Patient wanted to go home. Patient was discharged home with instructions to follow-up with PCP Please note the above document was generated using voice recognition software. It may contain grammatical, syntax or spelling errors. Any formal questions or concerns about the content, text or information contained within the body of this dictation should be directly addressed to the provider for clarification Total Time Total Time Spent Total Time Spent (In Minutes): 45 Total Time Includes: Examination of the Patient, Discharge Planning, Medication Reconciliation, Communication With Other Providers and Other Discharge Plan Discharge Items Patient Disposition: Home - Self-Care Reason For Visit: NSTEMI Discharge Diagnosis: Chest pain Activity: Resume your previous activity Non-emergency contact: Primary Care Provider Call non-emergency contact if: you have any medication questions and your symptoms worsen Follow-up/Referrals: Milton Balderas MD [Primary Care Provider] - (Date & Time 06/27/2024 10:40 AM Provider: Milton Balderas MD [facility] ) Diet: Regular Addtl Attending Provider Instructions: You are admitted to the hospital for chest discomfort. Please evaluated you. They recommend continuing current medication in addition of Lipitor. Follow-up with your primary care doctor Pending Studies at Discharge: No Stand-Alone Forms: My [facility] [employer], Smoking Cessation Medications and DC Order Prescriptions: New atorvastatin 20 mg Tablet 20 mg PO QAM 60 Days Qty: 60 0RF Continued amlodipine 5 mg tablet 5 mg PO DAILY aspirin 81 mg Tablet,Delayed Release (Dr/Ec) 81 mg PO DAILY levothyroxine 75 mcg tablet 75 mcg PO DAILY ferrous sulfate 325 mg (65 mg iron) Tablet 325 mg PO DAILY losartan 25 mg tablet 25 mg PO DAILY nystatin [Nyamyc] 100,000 unit/gram powder 1 applic TOPICAL TID Rx Instructions: under breast and abdomen folds magnesium chloride 64 mg Tablet,Delayed Release (Dr/Ec) 64 mg PO BID Trulicity 0.75 mg/0.5 mL pen injector 0.75 mg SUBCUT WK Velt[place] 8.4 gram powder in packet 8.4 g PO Q OTHER DAY Discharge Orders: Discharge Order (Routine); Ordered 06/21/24 Ordered By: Edil Ambriz/Other Patient Handouts: Managing Type 2 Diabetes Admission Data Admit Date/Time: 06/20/24 02:19 Attending Provider: Edil Angel Admit Provider: Luis Coello Primary Care Provider: Milton Balderas Other Providers: Luis Coello; Alberto Stein Other Interventions: Discharge Summary Assessment (RN) Last Done: 06/21/24 10:57
--- OUTSIDE RECORDS SUMMARY | 2024-08-19 10:32 | External Medical Summary | Summary of Care ---
Author Name Unknown Organization [facility] Address [address] [place] [address] Phone [phone] Care Team Providers Care Switchboard Mechanic Name Role Phone Milton Balderas MD Primary Care Provider + Reason for Visit * Reason Onset Date Comments Anemia Follow-Up 08/16/2024 Encounter Details Date Type Department Care Team (Late st Contact Info) Description 08/14/2024 9:30 AM EDT Pharmacy Pharmacy, [place] [address], [place] [phone] Clinic, Anemia [address], [place] [phone] Anemia of chronic renal failure, stage 4 (severe) ([facility])* Allergies Active Allergy Reactions Criticality Noted Date Comments Neville Inhibitors Cough 09/29/2010 Lisinopril causes cough Ciprofloxacin Rash Medium 05/03/2014 Rash with first IV dose in hospital Metformin Diarrhea 09/29/2010 documented as of this encounter (statuses as of 08/16/2024) Medications ASPIRIN 81 MG PO TABSIndications:ta kes at night Take by mouth daily. Indications: takes at night 0 06/08/19 07 Active BD PEN NEEDLE SHORT U/F 31G X 8 MM USE WITH INSULIN UP TO 4 TIMES DAILY FOR DIABETES 1 Box Dosing Unit 11 01/07/20 17 Active nitroglycerin (NITROSTAT) 0.[address] 1 Tablet under the tongue every 5 minutes as needed. Active Probiotic Product (PROBIOTIC DAILY) Capsule Take 1 Cap by mouth daily. 09/17/19 Active Biotin 1 MG Capsule Take 1 Capsule by mouth in the morning. Active Metamucil 0.36 GM Oral Capsule (Psyllium) Take by mouth every other day . Active FreeStyle Lancets USE TO TEST BLOOD SUGAR 2 TIMES A DAY Dx: E11.9 200 Each 3 06/14/19 Active Oxybutynin Chloride ER 5 MG Oral Tablet Extended Release 24 Hour (Ditropan XL)Indications:Uri nary frequency TAKE 1 TABLET DAILY (DO NOT CUT, CRUSH OR CHEW) 90 Tablet 3 06/20/19 23 Active Vitamin D3 25 MCG (1000 UT) Oral Tablet (Vitamin D3)Indications:Vit cordova D deficiency Take 1 Tablet by mouth in the morning. 12/23/19 Active CPAP every night at bedtime. Active Procrit 42974 UNIT/ML Injection SolutionIndication s:Anemia of chronic renal failure, unspecified stage Inject 10,000 units subcutaneous every 4 weeks, 84-day supply. 3 mL 3 02/24/20 Active BD TB Syringe 27G X 1/2" 1 ML (Tuberculin Syringe) Use to inject Procrit monthly or as directed 3 Each 1 02/24/20 Active OneTouch Verio In Vitro Strip (Glucose Blood) Use to test blood sugar 2 times a day. DX E11.9 200 Strip 1 06/09/19 24 Active OneTouch Delica Lancets 30G USE TO CHECK GLUCOSE UP TO 4 TIMES DAILY 400 Each 3 06/09/19 24 Active Estradiol 0.1 MG/GM Vaginal Cream (Estrace)Indicatio ns:Recurrent UTI Use 1gm nightly -rub around vaginal opening and use inside , for 2 weeks. Then use twice weekly. 42.5 g 3 10/27/19 24 Active Additional Information Patient not taking.Reported on 07/30/2024 Ferrous Sulfate 325 (65 Fe) MG Oral Tablet (Feosol) Take 1 Tablet by mouth daily. 90 Tablet 1 12/28/19 24 Active Ondansetron 4 MG Oral Tablet Disintegrating (Zofran) Place 1 Tablet on tongue every 8 hours as needed for Nausea. dissolve on tongue. 30 Tablet 1 01/24/20 24 Active Additional Information Patient not taking.Reported on 07/30/2024 Levothyroxine Sodium 75 MCG Oral Tablet (Levoxyl) TAKE 1 TABLET DAILY FIRST THING IN THE MORNING 90 Tablet 3 02/08/20 24 Active Losartan Potassium 25 MG Oral Tablet (Cozaar) Take 1 Tablet by mouth in the morning. 30 Tablet 2 02/15/20 Active Additional Information Patient taking differently: 50 mgOral Daily(AM), Reported on 07/30/2024 Clotrimazole 1 % External Cream (Lotrimin) Apply topically to affected area 2 times a day. Apply as directed Active Magnesium Chloride 64 MG Oral Tablet Delayed Release (Mag-64) Take 1 Tablet by mouth in the morning and 1 Tablet before bedtime. Active Triamcinolone Acetonide 0.5 % External Cream (Aristocort)Indica tions:Dermatitis, unspecified Apply topically to affected area 2 times a day. Till better 15 g 03/09/20 Active Additional Information Patient not taking.Reported on 07/30/2024 Trulicity 0.75 MG/0.5ML Subcutaneous Solution Auto-injector (Dulaglutide)Indic ations:Type 2 diabetes mellitus with stage 4 chronic kidney disease, without long-term current use of insulin (HCC) INJECT 1 PEN WEEKLY 6 mL 1 04/02/20 24 Active Veltassa 8.4 GM Oral Packet (Patiromer Sorbitex Calcium)Indication s:End stage renal disease (HCC) Take 1 Packet by mouth every other day. 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 90 Tablet 3 07/31/19 25 Active amLODIPine Besylate 5 MG Oral Tablet (Norvasc)Indicatio ns:HTN, goal below 130/80 Take 1 Tablet by mouth in the morning. 90 Tablet 3 07/31/19 25 Active amLODIPine Besylate 5 MG Oral Tablet (Norvasc)Indicatio ns:HTN, goal below 130/80 Take 1 Tablet by mouth in the morning. 30 Tablet 07/31/19 Active documented as of this encounter (statuses as of 08/16/2024) Active Problems Problem Noted Date Diagnosed Date Mild Alzheimer's dementia wi thout behavioral disturbance, psychotic disturbance, mood disturbance, or anxiety 06/27/2024 Type 2 diabetes mellitus wit h stage 3b chronic kidney disease, without long-term current use of insulin 06/27/2024 History of non-ST elevation myocardial infarctio n (NSTEMI) 06/27/2024 Memory loss 12/07/2023 UTI symptoms 12/07/2023 Acute confusion 12/07/2023 Mild dementia without behavi oral disturbance, psychotic disturbance, mood disturbance, or anxiety 05/25/2023 PSVT (paroxysmal supraventricular tachycardia) 0 07/15/2022 Well adult exam 07/28/2021 Overview (06/27/2024): 07/02 TTE [facility] , hx NSTEMI. 02/27 colon-poor prep, f/u not rec given age 2019 colon WNL Stage 3b chronic kidney disease 06/01/2021 History of 2019 novel coronavirus disease (COVID -19) 05/24/2021 Overview (05/24/2021): 05/29 vaccinated. 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 01/21/2021 Overview (01/21/2021): 11/27/2019 Retinal Scan Interpretation: There is mild [...] 06/09/2017 B12 deficiency 08/03/2016 Diaphragmatic hernia 11/10/2010 Overview (11/10/2010): Found on barium swallow, 01/25/[address] [facility] on CPAP 11/10/2010 Overview (02/06/2017): Sleep study on 12/24/2009, [facility], Cpap 8, flex setting 3 AHP ICD-10 update of inactive term History of basal cell cancer 11/10/2010 Overview (08/11/2015): BCC, left neck, 12/24/2009 ICD-10 update of inactive term HTN, goal below 130/80 09/29/2010 Dyslipidemia, goal LDL below 100 09/29/2010 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 Pernicious anemia Hypothyroidism GERD (gastroesophageal reflux disease) documented as of this encounter (statuses as of 08/16/2024) Resolved Problems Problem Noted Date Diagnosed Date [...] goal of less than 7.0% 06/04/2012 09/29/2017 Overview (09/01/2015): ICD-10 update of inactive term HTN, goal [...] as of this encounter (statuses as of 08/16/2024) Immunizations Name Administration Dates Next Due COVID-19 mRNA, LNP-s, No Pre serve, 2-Dose Series ([employer]) 03/15/2021,07/15/2020,06/17/2020 Pneumococcal Conjugate Vacc, 13 Valent (Prevnar) [...] 10 and older)(Boostrix) 10/14/2018,12/2014 Varicella Zoster Vaccine Aj lt (Zostavax) 02/05/2013 Zoster Vaccine Recombinant (Shingrix) ,03/12/2020,01/06/2020,12/08 documented [...] ages 0-17 years) Not on file 08/23/2023 Food Insecurity Answer Date Recorded Within the past 12 months, y ou worried that your food would run out before you got the money to buy more. Never true 08/23/19 24 Within the past 12 months, t he food you bought just didn't last and you didn't have money to get more. Never true 08/23/2023 Do you need food for this week? 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 Hgb is above target range. Iron studies adequate. B12/FA levels within target range. Patient reports she gets tired easily, but otherwise denies signs/symptoms of anemia. Plan: HOLD Procrit 10,000 units SQ m8vmabs. Last dose: Procrit 10,000 units SQ on 05/28/24 Next dose: Procrit 10,000 units SQ on 10/01/24 New or recurrent malignancy? none reported Follow-up [facility] scheduled for 09/23/24 at [facility]. Anemia clinic will continue to follow, thank you for allowing us to participate in the care of thispatient. Capo Treviño, PharmD, [facility] Clinical Pharmacist Anemia Clinic P: [phone] F: [phone] 08/16/2024 4:26 PM Lab Results Component Value Date/Time HGB 11.2 (L) 08/13/2024 09:47 AM HGB 11.7 (L) 07/11/2024 10:50 AM HGB 11.0 (L) 07/01/2024 10:36 AM HGB 10.6 (A) 03/20/2022 12:00 AM HGB 10.2 (L) 05/18/2020 11:02 AM HGB 9.8 (L) 04/13/2020 10:53 AM HGB 10.5 (L) 03/16/2020 10:39 AM No results found for: "HEMOGLOBIN-OUTSIDE LAB" Results for orders placed or performed in visit on 08/13/24 IRON SCREEN, INCLUDING TIBC Result Value Ref Range Iron 176 (H) 33 - 151 ug/dL Iron Binding Capacity 312 250 - 425 ug/dL Transferrin Saturation Percent 56 (H) 15 - 55 % Results for orders placed or performed in visit on 07/01/24 IRON SCREEN, INCLUDING TIBC Result Value Ref Range Iron 178 (H) 33 - 151 ug/dL Iron Binding Capacity 336 250 - 425 ug/dL Transferrin Saturation Percent 53 15 - 55 % Results for orders placed or performed in visit on 05/20/24 IRON SCREEN, INCLUDING TIBC Result Value Ref Range Iron 188 (H) 33 - 151 ug/dL Iron Binding Capacity 316 250 - 425 ug/dL Transferrin Saturation Percent 59 (H) 15 - 55 % No results found for: "TRANSFERRIN SAT %-OUTSIDE LAB" Lab Results Component Value Date/Time [facility] - [facility] 555 (H) 08/13/2024 09:47 AM [facility] - [facility] 428 (H) 07/01/2024 10:36 AM [facility] - [facility] 514 (H) 05/20/2024 11:05 AM [facility] - [facility] 697.3 (H) 05/18/2020 11:02 AM [facility] - [facility] 784.3 (H) 04/13/2020 10:53 AM [facility] - [facility] 729.7 (H) 02/17/2020 10:24 AM No results found for: "FERRITIN-OUTSIDE LAB" documented in this encounter Plan of Treatment Upcoming Encounters Date Type Department Care Team (Late st Contact Info) Description 08/19/2024 10:00 AM EDT Office Visit Cardiology, [address] [place] [address] Magalis Bartholomew MD [address] [facility] [place] [address] 09/23/2024 9:30 AM EDT Laboratory Laboratory, [facility] [address] [place] [address] [facility] [address] [place] [address] 09/24/2024 9:30 AM EDT Pharmacy Pharmacy, [address] [address] 12/27/2024 2:20 PM EDT Office Visit [facility] ([place], [place]) [address] [facility] [place] [address] Milton Balderas MD [address] [place] [address] 12/27/2024 3:00 PM EDT Laboratory Laboratory, [facility] [address] [place] [address] [facility] [address] [place] [address] 01/30/2025 10:00 AM EDT Office Visit [facility] [address] [place] [phone] Lucila Flanagan CRNP [address] [place] [address] 07/29/2025 1:40 PM EDT Office Visit [facility] ([place], [place]) [address] [place] [address] Milton Balderas MD [address] [place] [address] Scheduled Orders Name Type Priority Associated Diagnoses Orde r Schedule CBC WITH WBC DIFFERENTIAL AND ANEMIA REFLEX WORKUP Lab Routine Anemia of chronic renal failure, stage 4 (severe) (HCC) Expected: 09/23/2024 (Approximate), Expires: 09/15/2025 Health Maintenance Due Date Last Done Comments Adult Wellness Visit 12/25/2021 12/25/2020 COVID-19 Vaccine ( season) 2024 03/15/2021, 07/15/2020, 06/17/2020 Diabetic Foot Exam 05/25/2024 05/25/2023, 0 08/18/2021, 08/27/2020, Additional history exists Depression Screening 08/22/2024 08/23/2023 Diabetic Eye Exam 12/27/2024 12/28/2023, (Done elsewhere), 12/23/2020, Additional history exists HbA1c 12/29/2024 07/01/2024, 06/08, 06/20/2024 (Done elsewhere), Additional history exists Albumin/Creatinine Ratio 07/01/2025 025, 12/04/2023, 08/31/2023, Additional history exists TSH 08/13/2025 08/13/2024, 06/09, 05/20/2024, Additional history exists DTap/Tdap Vaccines (3 - Td or Tdap) 10/14/2028 10/14/2018, 08/13/2014 Pneumococcal Vaccine: 50+ Years Completed 08/13/2014, 09/29/2010 Zoster Vaccines Completed [...] on patient's age to complete this topic Meningitis B Vaccine (Bexsero/Trumemba) Aged Out No longer eligible based on patient's age to complete this topic documented as of this encounter Medical Devices Not on filedocumented as of this encounter Visit Diagnoses Diagnosis Anemia of chronic renal failure, stage 4 (severe) (HCC)- Primary documented in this encounter Care Teams Switchboard Mechanic Relationship Specialty Start Date End Date Milton Balderas MD [address] [place] [address] PCP - General Family Medicine 10/13/20 documented as of this encounter
--- OUTSIDE RECORDS SUMMARY | 2024-08-19 10:32 | External Medical Summary ---
Author Name Unknown Address Unknown Organization [id number]:LABORATORY [facility] [place] - [address] [facility] [place] [address] Laboratory Report Ordering Provider Test Date Status STU LANDERS 08/13/2024 09:47:55 Final Observation Date Value Abnormality Reference (Units ) Status SYNC LEUKOCYTES IN BLOOD BY AUTOMATED COUNT 08/13/2024 09:47:55 6.90 4.00-10.80 (K/uL) Final Segs 08/13/2024 09:47:55 47.8 40.0-75.0 (%) Final Lymphs % 08/13/2024 09:47:55 37.1 18.0-42.0 (%) Final Monos 08/13/2024 09:47:55 8.7 1.0-11.0 (%) Final Eosinophils 08/13/2024 09:47:55 4.9 0.0-6.0 (%) Final Basos 08/13/2024 09:47:55 1.2 0.0-2.0 (%) Final Immature Granulocyte, Percent 08/13/2024 09:47:55 0.3 0.0-2.0 (%) Final Absolute Segs 08/13/2024 09:47:55 3.30 1.80-7.70 (K/uL) Final Lymphs, absolute 08/13/2024 09:47:55 2.56 1.00-4.80 (K/ul) Final Monos, Abs 08/13/2024 09:47:55 0.60 0.00-1.10 (K/uL) Final Eos, Abs 08/13/2024 09:47:55 0.34 0.00-0.70 (K/uL) Final Basos, Abs 08/13/2024 09:47:55 0.08 0.00-0.20 (K/uL) Final Immature Granulocytes, Number 08/13/2024 09:47:55 0.02 0.00-0.20 (K/uL) Final Performing Location LABORATORY [facility] [place] - [facility] [address] [facility] [address]
--- OUTSIDE RECORDS SUMMARY | 2024-08-19 10:32 | External Medical Summary | Summary of Care ---
Author Name Unknown Organization [facility] Address [address] [place] [address] Phone [phone] Care Team Providers Care Bead Preparer Name Role Phone Milton Balderas MD Primary Care Provider + Reason for Visit * Reason Onset Date Comments Anemia Follow-Up 08/13/2024 Encounter Details Date Type Department Care Team (Late st Contact Info) Description 08/13/2024 9:30 AM EDT Pharmacy Pharmacy, [place] [address] [place], [place] [phone] Clinic, Anemia [address] [place], [place] [phone] Anemia of chronic renal failure, stage 4 (severe) ([facility])* Allergies Active Allergy Reactions Criticality Noted Date Comments Neville Inhibitors Cough 09/29/2010 Lisinopril causes cough Ciprofloxacin Rash Medium 05/03/2014 Rash with first IV dose in hospital Metformin Diarrhea 09/29/2010 documented as of this encounter (statuses as of 08/13/2024) Medications ASPIRIN 81 MG PO TABSIndications:ta kes [...] CPAP every night at bedtime. 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 30 Tablet 07/31/19 25 Active Atorvastatin Calcium 20 MG Oral Tablet (Lipitor)Indicatio ns:Coronary artery disease involving [place] coronary artery of [place] heart without angina pectoris Take 1 Tablet [...] as of this encounter (statuses as of 08/13/2024) Active Problems Problem Noted Date Diagnosed Date [...] (11/10/2010): Found on barium swallow, 01/25/2010 at [facility] on CPAP 11/10/2010 Overview (02/06/2017): Sleep study on 12/24/2009, [facility], [...] as of this encounter (statuses as of 08/13/2024) Resolved Problems Problem Noted Date Diagnosed Date [...] as of this encounter (statuses as of 08/13/2024) Immunizations Name Administration Dates Next Due COVID-19 mRNA, LNP-s, No Pre serve, 2-Dose Series ([employer]) 03/15/2021,07/15/2020,06/17/2020 Pneumococcal Conjugate Vacc, 13 Valent (Prevnar) [...] 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 Anemia clinic will continue to follow, thank you for allowing us to participate in the care of thispatient. Capo Treviño, PharmD, [facility] Clinical Pharmacist Anemia Clinic P: [phone] F: [phone] 08/13/2024 3:00 PM Lab Results Component Value Date/Time HGB [...] Percent 59 (H) 15 - 55 % Results for orders placed or performed in visit on 04/08/24 IRON SCREEN, INCLUDING TIBC Result Value Ref Range Iron 187 (H) 33 - 151 ug/dL Iron Binding Capacity 307 250 - 425 ug/dL Transferrin Saturation Percent 61 (H) 15 - 55 % No results found for: "TRANSFERRIN SAT %-OUTSIDE LAB" Lab Results Component Value Date/Time [facility] - [facility] 428 (H) 07/01/2024 10:36 AM [facility] - [facility] 514 (H) 05/20/2024 11:05 AM [facility] - [facility] 574 (H) 04/08/2024 11:11 AM [facility] - [facility] 697.3 (H) 05/18/2020 11:02 AM [facility] - [facility] 784.3 (H) 04/13/2020 10:53 AM [facility] - [facility] 729.7 (H) 02/17/2020 10:24 AM No results found for: "FERRITIN-OUTSIDE LAB" documented in this encounter Plan of Treatment Upcoming Encounters Date Type Department Care Team (Late st Contact Info) Description 08/14/2024 9:30 AM EDT Pharmacy Pharmacy, [place] [address] [place] [address] [facility] [address] [facility] [address] 08/19/2024 10:00 AM EDT Office Visit Cardiology, [place] [address] [place] [address] Magalis Bartholomew MD [address] [place] [address] 12/27/2024 2:20 PM EDT Office Visit [facility] [address] [place] [address] Milton Balderas MD [address] [place] [address] 01/30/2025 10:00 AM EDT Office Visit [facility] [address] [place] [phone] Lucila Flanagan CRNP [address] [place] [address] 07/29/2025 1:40 PM EDT Office Visit [facility] [address] [place] [address] Milton Balderas MD [address] [place] [address] Health Maintenance Due Date Last Done Comments [...] 025, 12/04/2023, 08/31/2023, Additional history exists TSH 07/01/2025 08/13/2024, 06/09, 05/20/2024, Additional history exists DTap/Tdap [...] Primary documented in this encounter Care Teams Bead Preparer Relationship Specialty Start Date End Date Milton Balderas MD [address] [place] [address] PCP - General Family Medicine 10/13/20 documented as of this encounter
--- OUTSIDE RECORDS SUMMARY | 2024-08-19 10:32 | External Medical Summary | Summary of Care ---
Author Name Unknown Organization [facility] Address [address] [place] [address] Phone [phone] Care Team Providers Care Shipping Receiving Clerk Name Role Phone Milton Balderas MD Primary Care Provider + Reason for Visit * Reason Comments Appointment Encounter Details Date Type Department Care Team (Late st Contact Info) Description 08/02/2024 11:30 AM EDT Telemedicine Pharmacy, [facility] [address] [place] [address] [facility] [address] [place] [address] HTN, goal below 130/80* Allergies Active Allergy Reactions Criticality Noted Date Comments Neville Inhibitors Cough 09/29/2010 Lisinopril causes cough Ciprofloxacin Rash Medium 05/03/2014 Rash with first IV dose in hospital Metformin Diarrhea 09/29/2010 documented as of this encounter (statuses as of 08/02/2024) Medications ASPIRIN 81 MG PO TABSIndications:ta kes [...] OR CHEW) 90 Tablet 3 06/20/19 Active Vitamin D3 25 MCG (1000 UT) Oral Tablet (Vitamin D3)Indications:Vit cordova D deficiency Take 1 Tablet by mouth in the morning. 12/23/19 Active CPAP every night at bedtime. Active Procrit 61110 UNIT/ML Injection SolutionIndication s:Anemia of chronic renal [...] in the morning. 30 Tablet 2 02/15/20 24 Active Additional Information Patient taking differently: 50 [...] 30 Each 3 05/03/20 24 Active Nyamyc 759245 UNIT/GM External Powder (Nystatin)Indicati ons:Tinea corporis APPLY TOPICALLY TO AFFECTED AREA THREE TIMES A DAY APPLY UNDER BREASTS AND BELLY 60 g 05/06/20 24 Active Atorvastatin Calcium 20 MG Oral Tablet (Lipitor)Indicatio ns:Coronary artery disease involving unga coronary artery of unga heart without angina pectoris Take 1 Tablet by mouth in the morning. 30 Tablet 07/31/19 25 Active Atorvastatin Calcium 20 MG Oral Tablet (Lipitor)Indicatio ns:Coronary artery disease involving unga coronary artery of unga heart without angina pectoris Take 1 Tablet [...] as of this encounter (statuses as of 08/02/2024) Active Problems Problem Noted Date Diagnosed Date [...] (11/10/2010): Found on barium swallow, 01/25/2010 at [facility] on CPAP 11/10/2010 Overview (02/06/2017): Sleep study on 12/24/2009, [facility], Cpap 8, flex setting 3 AHP ICD-10 update of inactive term History of basal cell cancer 11/10/2010 Overview (08/11/2015): BCC, left neck, 12/24/2009 ICD-10 update of inactive term HTN, goal below 130/80 09/29/2010 Dyslipidemia, goal LDL below 100 09/29/2010 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 Pernicious anemia Hypothyroidism GERD (gastroesophageal reflux disease) documented as of this encounter (statuses as of 08/02/2024) Resolved Problems Problem Noted Date Diagnosed Date [...] as of this encounter (statuses as of 08/02/2024) Immunizations Name Administration Dates Next Due COVID-19 mRNA, LNP-s, No Pre serve, 2-Dose Series ([employer]) 03/15/2021,07/15/2020,06/17/2020 Pneumococcal Conjugate Vacc, 13 Valent (Prevnar) [...] (Fluad) 01/18/2019 TDAP (age 10 and older)(Boostrix) 10/14/2018,04/ 12/2014 Varicella Zoster Vaccine (Adult) 02/05/2013 Zoster Vaccine [...] 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 Referred for HTN management by Neelam Hilliard. Blood pressure goal: <130/80 Current Hypertension Medication(s): Amlodipine 5 mg once a day Losartan 50 mg once a day Called patient, no answer, unable to leave voicemail. She has not been able to provide MTM with BP readings for the last 4 visits/telephone calls. MTM will sign off at this time due to inability to make contact with patient/have BP readings to review with patient at time of call, therefore not being able to make reasonable adjustments to medications. Thank you for allowing us to be involved in the care of this patient. Amalia Callejas, PharmD, BCACP Clinical Pharmacist Medication Therapy Disease Management 08/02/2024, 11:36 AM documented in this encounter Plan of Treatment Upcoming Encounters Date Type Department Care Team (Late st Contact Info) Description 08/12/2024 9:50 AM EDT Laboratory Laboratory, [facility] [address] [place] [phone] Ghislaine Barber [address] [place] [address] 08/13/2024 9:30 AM EDT Pharmacy Pharmacy, [facility] [address] [place] [address] Clinic, [place] [address] [place] [address] 08/19/2024 10:00 AM EDT [facility] [place] [facility] [address] Magalis Bartholomew MD [address] [place] [address] 12/27/2024 2:20 PM EDT Office Visit [facility] [address] [place] [address] Milton Balderas MD [address] [place] [address] 01/30/2025 10:00 AM EDT Office Visit Sleep Disorders [facility]tr [facility] [address] [place] [phone] Lucila Flanagan CRNP [address] [place] [address] 07/29/2025 1:40 PM EDT Office Visit [facility] [address] [place] [address] Milton Balderas MD [address] [place] [address] Health Maintenance Due Date Last Done Comments [...] 12/04/2023, 08/31/2023, Additional history exists TSH 07/01/2025 07/01/2024, 05/08, 04/08/2024, Additional history exists DTap/Tdap Vaccines (3 - [...] as of this encounter Visit Diagnoses Diagnosis HTN, goal below 130/80- Primary Unspecified essential hypertension documented in this encounter Care Teams Shipping Receiving Clerk Relationship Specialty Start Date End Date Milton Balderas MD [address] [place] [address] PCP - General Family Medicine 10/13/20 documented as of this encounter
--- OUTSIDE RECORDS SUMMARY | 2024-08-19 10:32 | External Medical Summary ---
Author Name Unknown Address Unknown Organization [id number]:[facility]ORY [facility] [place] [address] [place] [address] Laboratory Report Ordering Provider Test Date Status STU LANDERS 08/13/2024 09:47:55 Final Observation Date Value Abnormality Reference (Units ) Status TSH 08/13/2024 09:47:55 2.84 0.27-4.20 (uIU/mL) Final Performing Location LAB[facility]ATORY [facility] - [address] [place] [address]
--- OUTSIDE RECORDS SUMMARY | 2024-08-19 10:32 | External Medical Summary | Summary of Care ---
Author Name Unknown Organization [facility] Address [address] [place] [address] Phone [phone] Care Team Providers Care Analyst Business Analysis Name Role Phone Milton Balderas MD Primary Care Provider + Reason for Visit * Reason Comments Outpatient Testing Encounter Details Date Type Department Care Team (Late st Contact Info) Description 08/13/2024 9:40 AM EDT Laboratory Laboratory, [facility] [address] [place] [address] [place], Laboratory [address] [place] [address] Anemia of chronic renal failure, stage 4 (severe) ([facility]) Allergies Active Allergy Reactions Criticality Noted [...] CPAP every night at bedtime. Active Procrit 11738 UNIT/ML Injection SolutionIndication s:Anemia of chronic renal failure, unspecified stage Inject 10,000 units subcutaneous every 4 weeks, 84-day supply. 3 mL 02/24/20 Active BD TB Syringe 27G X [...] 30 Each 3 05/03/20 24 Active Nyamyc 348242 UNIT/GM External Powder (Nystatin)Indicati ons:Tinea corporis APPLY TOPICALLY TO AFFECTED AREA THREE TIMES A DAY APPLY UNDER BREASTS AND BELLY 60 g 05/06/20 24 Active Atorvastatin Calcium 20 MG Oral Tablet (Lipitor)Indicatio ns:Coronary artery disease involving [place] coronary artery of [place] heart without angina pectoris Take 1 Tablet by mouth in the morning. 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 Job 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 on file Not on file Not on file documented as of this encounter Plan of Treatment Upcoming Encounters Date Type Department Care Team (Late st Contact Info) Description 08/19/2024 10:00 AM EDT Office Visit Cardiology, [place] [address] [place] [place] [address] Magalis Bartholomew MD [address] [place] [address] 12/27/2024 2:20 PM EDT Office Visit Family Practice [facility] [address] [address] Milton Balderas MD [address] [place] [address] 01/30/2025 10:00 AM EDT Office Visit [facility] Disorders Ctr [facility] [address] [place] [phone] Lucila Flanagan CRNP [address] [place] [address] 07/29/2025 1:40 PM EDT Office Visit [facility] [address] [place] [address] Milton Balderas MD [address] [place] [address] Pending Results Name Type Priority Associated Diagnoses Date /Time CBC WITH WBC DIFFERENTIAL AND ANEMIA REFLEX WORKUP Lab Routine Anemia of chronic renal failure, stage 4 (severe) ([facility]) 08/13/2024 9:47 AM EDT ANEMIA CBC Lab Routine Anemia of chronic renal failure, stage 4 (severe) ([facility]) 08/13/2024 9:47 AM EDT DIFFERENTIAL, AUTOMATED Lab Routine Anemia of chronic renal failure, stage 4 (severe) ([facility]) 08/13/2024 9:47 AM EDT ANEMIA REFLEX CHEMISTRY HOLD Lab Routine Anemia of chronic renal failure, stage 4 (severe) ([facility]) 08/13/2024 9:47 AM EDT Health Maintenance Due Date Last [...] 4 (severe) (HCC) documented in this encounter Care Teams Analyst Business Analysis Relationship Specialty Start Date End Date Milton Balderas MD [address] [place] [address] PCP - General Family Medicine 10/13/20 documented as of this encounter
--- OUTSIDE RECORDS SUMMARY | 2024-08-19 10:32 | External Medical Summary ---
Author Name Unknown Address Unknown Organization [id number]:[facility]ATORY [facility] [place] [address] [place] [address] Laboratory Report Ordering Provider Test Date Status STU LANDERS 08/13/2024 09:47:55 Final Observation Date Value Abnormality Reference (Units ) Status Iron 08/13/2024 09:47:55 176 Above high normal 33-151 (ug/dL) Final Iron-binding capacity 08/13/2024 09:47:55 312 250-425 (ug/dL) Final Transferrin Sat % 08/13/2024 09:47:55 56 Above high normal 15-55 (%) Final Performing Location [facility] [place] - [address] [place] [address]
--- OUTSIDE RECORDS SUMMARY | 2024-08-19 10:32 | External Medical Summary ---
Author Name Unknown Address Unknown Organization [id number]:[place] [facility] [place] [address] [facility] [address] Laboratory Report Ordering Provider Test Date Status STU LANDERS 08/13/2024 09:47:55 Final Observation Date Value Abnormality Reference (Units ) Status WBC, Total 08/13/2024 09:47:55 6.90 4.00-10.8 0 (K/uL) Final RBC 08/13/2024 09:47:55 3.81 3.85-5.15 (M/uL) Final Hemoglobin 08/13/2024 09:47:55 11.2 Below low normal 12 .0-15.3 (g/dL) Final Anemia reflex testing trigge rs on a HGB < 12.0 for Females and HGB < 13.0 for Males in accordance with the WHO Anemia Guidelines
Anemia reflex testing triggers on a HGB < 12.0 for Females and HGB < 13.0 for Males in accordance with the WHO Anemia Guidelines HCT 08/13/2024 09:47:55 35.1 Below low normal 36. 0-45.2 (%) Final MCV 08/13/2024 09:47:55 92.1 81.5-97.5 (fL) Final MCH 08/13/2024 09:47:55 29.4 27.0-34.0 (pg) Final MCHC 08/13/2024 09:47:55 31.9 32.0-36.0 (g/dL) Final RDW 08/13/2024 09:47:55 12.3 11.5-15.5 (%) Final Platelets 08/13/2024 09:47:55 174 140-400 (K /uL) Final MPV 08/13/2024 09:47:55 11.1 6.6-11.1 ( fL) Final Nucleated erythrocytes/100 leukocytes [Ratio] in Blood by Automated count 08/13/2024 09:47:55 0 <=0 (/100 WBCs) Final Performing Location [facility] [place] [facility] [address] [facility] [address]
--- OUTSIDE RECORDS SUMMARY | 2024-08-19 10:32 | External Medical Summary ---
Author Name Unknown Address Unknown Organization [id number][place] [place] [address] [place] [address] Laboratory Report Ordering Provider Test Date Status STU LANDERS 08/13/2024 09:47:55 Final Observation Date Value Abnormality Reference (Units ) Status Creatinine 08/13/2024 09:47:55 1.5 Above high normal 0.5-1.0 (mg/dL) Final Glomerular filtration rate/1.73 sq M.predicted [Volume Rate/Area] in Serum, Plasma or Blood by Creatinine-based formula (CKD-EPI) 08/13/2024 09:47:55 34 Below low normal >=60 (mL/min) Final eGFR is calculated based on the CKD-EPI 2020 equation. Performing Location [facility] [place] [address] [place] [address]
--- OUTSIDE RECORDS SUMMARY | 2024-08-19 10:32 | External Medical Summary ---
Author Name Unknown Address Unknown Organization [id number]:LAB[facility]ATORY [facility] [place] - [address] [place] [address] Laboratory Report Ordering Provider Test Date Status STU LANDERS 08/13/2024 09:47:55 Final Observation Date Value Abnormality Reference (Units ) Status Ferritin 08/13/2024 09:47:55 555 Above high normal 13 -150 (ng/mL) Final Postmenopausal women have hi gher ferritin levels than pre-menopausal women. The above reference interval is based on pre-menopausal women. Performing Location LABORATORY C - [address] [place] [address]
--- OUTSIDE RECORDS SUMMARY | 2024-08-19 10:32 | External Medical Summary ---
Author Name Unknown Address Unknown Organization [id number]:[facility]ORY [facility] [place] - [address] [place] [address] Laboratory Report Ordering Provider Test Date Status STU LANDERS 08/13/2024 09:47:55 Final Observation Date Value Abnormality Reference (Units ) Status Folic Acid 08/13/2024 09:47:55 15.7 >4.5 (ng/ mL) Final Performing Location LAB[facility]ATORY [facility] - [address] [place] [address]
--- OUTSIDE RECORDS SUMMARY | 2024-08-19 10:32 | External Medical Summary | Summary of Care ---
Author Name Unknown Organization [facility] Address [address] [place] [address] Phone [phone] Care Team Providers Care Tar Heat Exchanger Cleaner Name Role Phone Milton Balderas MD Primary Care Provider + Reason for Visit * Reason Onset Date Comments Health Maintenance 08/15/2024 Encounter Details Date Type Department Care Team (Late st Contact Info) Description 08/15/2024 Telephone Family Practice Health system [address] [place] [address] Milton Balderas MD [address] [place] [address] Health Maintenance Allergies Active Allergy Reactions Criticality Noted Date Comments Neville Inhibitors Cough 09/29/2010 Lisinopril causes cough Ciprofloxacin Rash Medium 05/03/2014 Rash with first IV dose in hospital Metformin Diarrhea 09/29/2010 documented as of this encounter (statuses as of 08/15/2024) Medications ASPIRIN 81 MG PO TABSIndications:ta kes [...] Capsule Take 1 Cap by mouth daily. 05/12/20 20 Active Biotin 1 MG Capsule Take 1 Capsule by mouth in the morning. Active Metamucil 0.36 GM Oral Capsule (Psyllium) Take by mouth every other day . Active FreeStyle Lancets USE TO TEST BLOOD SUGAR 2 TIMES A DAY Dx: E11.9 200 Each 3 06/14/19 23 Active Oxybutynin Chloride ER 5 MG Oral Tablet Extended Release 24 Hour (Ditropan XL)Indications:Uri nary frequency TAKE 1 TABLET DAILY (DO NOT CUT, CRUSH OR CHEW) 90 Tablet 3 06/20/19 23 Active Vitamin D3 25 MCG (1000 UT) Oral Tablet (Vitamin D3)Indications:Vit cordova D deficiency Take 1 Tablet by mouth in the morning. 12/23/19 23 Active CPAP every night at bedtime. 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 30 Tablet 07/31/19 25 Active Atorvastatin Calcium 20 MG Oral Tablet (Lipitor)Indicatio ns:Coronary artery disease involving duck[place] coronary artery of duckwater heart without angina pectoris Take 1 Tablet [...] as of this encounter (statuses as of 08/15/2024) Active Problems Problem Noted Date Diagnosed Date [...] (11/10/2010): Found on barium swallow, 01/25/2010 at [facility] on CPAP 11/10/2010 Overview (02/06/2017): Sleep study on 12/24/2009, [facility], Cpap 8, flex setting 3 AHP ICD-10 update of inactive term History of basal cell cancer 11/10/2010 Overview (08/11/2015): BCC, left neck, 12/24/2009 ICD-10 update of inactive term HTN, goal below 130/80 09/29/2010 Dyslipidemia, goal LDL below 100 09/29/2010 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 Pernicious anemia Hypothyroidism GERD (gastroesophageal reflux disease) documented as of this encounter (statuses as of 08/15/2024) Resolved Problems Problem Noted Date Diagnosed Date [...] as of this encounter (statuses as of 08/15/2024) Immunizations Name Administration Dates Next Due COVID-19 mRNA, LNP-s, No Pre serve, 2-Dose Series ([employer]) 03/15/2021,07/15/2020,06/17/2020 Pneumococcal Conjugate Vacc, 13 Valent (Prevnar) [...] Job 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 Job End 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 Not on file Not on file Not on file documented as of this encounter Miscellaneous Notes * Telephone Encounter - Irasema Paula LPN - 08/15/2024 9:15 AM EDT Care Gaps Comprehensive Care Outreach Last Office/Telemedicine Visit: 07/30/2024 (in office), Visit date not found (telemedicine) Next Office Visit: 12/27/2024 Hemoglobin AIC Results: Lab Results Component Value Date/Time HEMOGLOBIN A1C - [facility] 6.5 (H) 07/01/2024 10:36 AM HEMOGLOBIN A1C - [facility] 6.4 (H) 12/04/2023 09:33 AM HEMOGLOBIN A1C - [facility] 6.6 (H) 04/27/2023 11:13 AM HEMOGLOBIN A1C - [facility] 7.4 (H) 02/17/2020 10:23 AM HEMOGLOBIN A1C - [facility] 7.0 (H) 07/29/2019 09:52 AM HEMOGLOBIN A1C - [facility] 6.4 (H) 01/18/2019 01:37 PM BP Readings from Last 1 Encounters: 07/30/24 150/66 Reviewed Health Maintenance below: Health Maintenance Topic Date Due Adult Wellness Visit 12/25/2021 COVID-19 Vaccine ( season) 2024 Diabetic Foot Exam 05/25/2024 Depression Screening 08/22/2024 Diabetic Eye Exam 12/27/2024 HbA1c 12/29/2024 awv Lab dec ordered and scheduled same day [facility] Gap Outreach Action Taken: Spoke to patient documented in this encounter Plan of Treatment Upcoming Encounters Date Type Department Care Team (Late st Contact Info) Description 08/19/2024 10:00 AM EDT Office Visit Cardiology, [place] [address] [place] [address] Magalis Bartholomew MD [address] [place] [address] 12/27/2024 2:20 PM EDT Office Visit [facility] [address] [place] [address] Milton Balderas MD [address] [place] [address] 12/27/2024 3:00 PM EDT Laboratory Laboratory, Health system [address] [place] [address] NicholeYeimi khanna [facility] [address] [place] [address] 01/30/2025 10:00 AM EDT Office Visit Sleep Disorders Ctr [facility] [address] [place] [address] Lucila Flanagan CRNP [address] [place] [address] 07/29/2025 1:40 PM EDT Office Visit [facility] [address] [place] [address] Milton Balderas MD [address] [place] [address] Scheduled Orders Name Type Priority Associated Diagnoses Orde r Schedule HEMOGLOBIN A1C Lab Routine Diabetes mellitus (HCC) Expected: 12/16/2024, Expires: 08/15/2025 Health Maintenance Due Date Last Done Comments [...] as of this encounter Visit Diagnoses Diagnosis Diabetes mellitus (HCC)- Primary Type II or unspecified type diabetes mellitus without mention of complication, not stated as uncontrolled documented in this encounter Care Teams Tar Heat Exchanger Cleaner Relationship Specialty Start Date End Date Milton Balderas MD [address] [place] [address] PCP - General Family Medicine 10/13/20 documented as of this encounter
--- OUTSIDE RECORDS SUMMARY | 2024-08-19 10:32 | External Medical Summary ---
Author Name Unknown Address Unknown Organization K01:[facility]ORY [facility] [place] - [facility] [address] [place] [address] Laboratory Report Ordering Provider Test Date Status STU LANDERS 08/13/2024 09:47:55 Final Observation Date Value Abnormality Reference (Units ) Status Retic, % (auto) 08/13/2024 09:47:55 1.21 0.80-1.90 (%) Final Reticulocytes, Absolute 08/13/2024 09:47:55 44.6 31.3-100.1 (K/uL) Final Reticulocyte fraction, immature 08/13/2024 09:47:55 9.6 2.5-20.6 (%) Final Reticulocyte HGB 08/13/2024 09:47:55 33.0 29.7-37.4 (pg) Final Performing Location LABORATORY [facility] [place] - [address] [place] [address]
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
--- OUTSIDE RECORDS SUMMARY | 2024-08-19 10:33 | External Medical Summary | Summary of Care ---
Author Name Unknown Organization [facility] Address [address] [place] [address] Phone [phone] Care Team Providers Care Chemist Pharmaceutical Name Role Phone Milton Balderas MD Primary Care Provider + Reason for Visit * Reason Onset Date Comments Referral 07/15/2024 Encounter Details Date Type Department Care Team (Late st Contact Info) Description 07/15/2024 New Patient Triage ([employer]OD[employer] USE ONLY) Cardiology, [address] [address] Cornelia Ontiveros, EMPLOYEE RELATIONS CONSULTANT [address] [place] [address] Referral Allergies Active Allergy Reactions Criticality Noted Date Comments Neville Inhibitors Cough 09/29/2010 Lisinopril causes cough Ciprofloxacin Rash Medium 05/03/2014 Rash with first IV dose in hospital Metformin Diarrhea 09/29/2010 documented as of this encounter (statuses as of 07/15/2024) Medications ASPIRIN 81 MG PO TABSIndications:ta kes [...] CHEW) 90 Tablet 3 06/20/19 23 Active Additional Information Patient not taking.Reported on 07/10/2024 Boost Oral Liquid Take by mouth daily. Active Vitamin D3 25 MCG (1000 UT) Oral Tablet (Vitamin D3)Indications:Vit cordova D deficiency Take 1 Tablet by mouth in the morning. 12/23/19 Active CPAP every night at bedtime. Active Procrit 39864 UNIT/ML Injection SolutionIndication s:Anemia of chronic renal [...] morning. 16 g 1 07/07/19 24 Active Additional Information Patient not taking.Reported on 07/10/2024 Estradiol 0.1 MG/GM Vaginal Cream (Estrace)Indicatio ns:Recurrent UTI Use 1gm nightly -rub around vaginal opening and use inside , for 2 weeks. Then use twice weekly. 42.5 g 3 10/27/19 24 Active Additional Information Patient not taking.Reported on 07/10/2024 Ferrous Sulfate 325 (65 Fe) MG Oral Tablet (Feosol) Take 1 Tablet by mouth daily. 90 Tablet 1 12/28/19 24 Active Ondansetron 4 MG Oral Tablet Disintegrating (Zofran) Place 1 Tablet on tongue every 8 hours as needed for Nausea. dissolve on tongue. 30 Tablet 1 01/24/20 24 Active Additional Information Patient not taking.Reported on 07/10/2024 Levothyroxine Sodium 75 MCG Oral Tablet (Levoxyl) TAKE 1 TABLET DAILY FIRST THING IN THE MORNING 90 Tablet 3 02/08/20 24 Active Losartan Potassium 25 MG Oral Tablet (Cozaar) Take 1 Tablet by mouth in the morning. 30 Tablet 2 02/15/20 24 Active Additional Information Patient taking differently: 50 mgOral Daily(AM), Reported on 07/10/2024 amLODIPine Besylate 5 MG Oral Tablet (Norvasc) [...] Active Additional Information Patient not taking.Reported on 07/10/2024 Trulicity 0.75 MG/0.5ML Subcutaneous Solution Auto-injector (Dulaglutide)Indic ations:Type 2 diabetes mellitus with stage 4 chronic kidney disease, without long-term current use of insulin (HCC) INJECT 1 PEN WEEKLY 6 mL 1 04/02/20 24 Active Veltassa 8.4 GM Oral Packet (Patiromer Sorbitex Calcium)Indication s:End stage renal disease (HCC) Take 1 Packet by mouth every other day. 30 Each 3 05/03/20 24 Active Nyamyc 224525 UNIT/GM External Powder (Nystatin)Indicati ons:Tinea corporis APPLY TOPICALLY TO AFFECTED AREA THREE TIMES A DAY APPLY UNDER BREASTS AND BELLY 60 g 05/06/20 24 Active Atorvastatin Calcium 20 MG Oral Tablet (Lipitor) Take 1 Tablet by mouth in the morning. 90 Tablet 3 06/27/19 25 Active Amoxicillin-Pot Clavulanate 875-125 MG Oral Tablet (Augmentin) Take 1 Tablet by mouth in the morning and 1 Tablet before bedtime. 07/02/19 Active documented as of this encounter (statuses as of 07/15/2024) Active Problems Problem Noted Date Diagnosed Date [...] [facility] on CPAP 11/10/2010 Overview (02/06/2017): [facility] [...] as of this encounter (statuses as of 07/15/2024) Resolved Problems Problem Noted Date Diagnosed Date [...] as of this encounter (statuses as of 07/15/2024) Immunizations Name Administration Dates Next Due COVID-19 mRNA, LNP-s, No Pre serve, 2-Dose Series (BlueLithium) 03/15/2021,07/15/2020,06/17/2020 Pneumococcal Conjugate Vacc, 13 Valent (Prevnar) [...] 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 New Patient Triage What is the diagnosis/reason for referral?: Malaise and fatigue [R53.81, R53.83] - Primary History of non-ST elevation myocardial infarction (NSTEMI) [I25.2] Stage 3b chronic kidney disease (HCC) [N18.32] Enter order ID here: [id number] Specialty specific documentation: Other Discussed care plan with patient or proxy?: No n/a pt home #, message left for return call APPOINTMENT INFO: 08/19/24 Puma INFO FROM CARDIAC REFERRAL Referred by Chavo Yanes notes 07/10/24: Acute Weak, no energy States is not feeling well, she is currently on antibiotics for UTI. States did vomit last week. Patient's spouse feels it's her medication, states when she doesn't take all this medication she feels better, but all this medication is not making her feel well. HPI: Patient presents today accompanied by her family member with the symptoms of a persistent fatigue. F/b Riri-, last eval y in June for hospital follow-up status post NSTEMI. Was seen in [facility] ER end of June with nausea vomiting and diarrhea, states workup was negative. Denies any bloody stools or black stools weight up few lb, denies any leg edema. Does not have Cardiology follow-up Labs from June reviewed-stable Malaise and fatigue (Primary) - CARDIOLOGY REFERRAL OP - CBC WITH WBC DIFFERENTIAL; Future; Expected date: 07/10/2024 - BASIC METABOLIC PANEL; Future; Expected date: 07/10/2024 History of non-ST elevation myocardial infarction (NSTEMI) - CARDIOLOGY REFERRAL OP - CBC WITH WBC DIFFERENTIAL; Future; Expected date: 07/10/2024 - BASIC METABOLIC PANEL; Future; Expected date: 07/10/2024 EKG/ECHO/ZIO/CARDIAC TESTING LABS Results for orders placed or performed in visit on 07/11/24 BASIC METABOLIC PANEL Result Value Ref Range BUN 23 (H) 6 - 20 mg/dL CREATININE 1.6 (H) 0.5 - 1.0 mg/dL EGFR 31 (L) >=60 mL/min SODIUM 141 135 - 146 mmol/L POTASSIUM 4.7 3.5 - 5.1 mmol/L CHLORIDE 102 98 - 107 mmol/L CO2 26 22 - 32 mmol/L ANION GAP 13 7 - 15 mmol/L GLUCOSE 235 (H) 70 - 120 mg/dL CALCIUM 9.9 8.4 - 10.2 mg/dL CBC Result Value Ref Range WBC 7.95 4.00 - 10.80 K/uL RBC 3.93 3.85 - 5.15 M/uL HGB 11.7 (L) 12.0 - 15.3 g/dL HCT 36.3 36.0 - 45.2 % MCV 92.4 81.5 - 97.5 fL MCH 29.8 27.0 - 34.0 pg MCHC 32.2 32.0 - 36.0 g/dL RDW 12.1 11.5 - 15.5 % PLT 194 140 - 400 K/uL MPV 11.4 6.6 - 11.1 fL nRBCs 0 <=0 /100 WBCs DIFFERENTIAL, AUTOMATED Result Value Ref Range WBC 7.95 4.00 - 10.80 K/uL Neutrophils % 63.7 40.0 - 75.0 % Lymphocytes % 22.4 18.0 - 42.0 % Monocytes % 8.3 1.0 - 11.0 % Eosinophils % 4.7 0.0 - 6.0 % Basophils % 0.5 0.0 - 2.0 % Immature Granulocytes % 0.4 0.0 - 2.0 % Absolute Neutrophils 5.07 1.80 - 7.70 K/uL Absolute Lymphocytes 1.78 1.00 - 4.80 K/ul Absolute Monocytes 0.66 0.00 - 1.10 K/uL Absolute Eosinophils 0.37 0.00 - 0.70 K/uL Absolute Basophils 0.04 0.00 - 0.20 K/uL Absolute Immature Granulocytes 0.03 0.00 - 0.20 K/uL *Note: Due to a large number of results and/or encounters for the requested time period, some results have not been displayed. A complete set of results can be found in Results Review. MEDICATIONS Current Outpatient Medications Medication Sig Dispense Refill [...] DAILY (DO NOT CUT, CRUSH OR CHEW) (Patient not taking: Reported on 07/10/2024) 90 Tablet 3 Boost Oral Liquid Take by mouth daily. (Patient not taking: Reported on 07/10/2024) Vitamin D3 25 MCG (1000 UT) Oral Tablet (Vitamin D3) Take 1 Tablet by mouth in the morning. CPAP every night at bedtime. Procrit 51302 UNIT/ML Injection Solution Inject 10,000 units subcutaneous [...] Sprays into each nostril in the morning. (Patient not taking: Reported on 07/10/2024) 16 g 1 Estradiol 0.1 MG/GM Vaginal Cream (Estrace) Use 1gm nightly -rub around vaginal opening and use inside , for 2 weeks. Then use twice weekly. (Patient not taking: Reported on 07/10/2024) 42.5 g 3 Ferrous Sulfate 325 (65 Fe) MG Oral Tablet (Feosol) Take 1 Tablet by mouth daily. 90 Tablet 1 Ondansetron 4 MG Oral Tablet Disintegrating (Zofran) Place 1 Tablet on tongue every 8 hours as needed for Nausea. dissolve on tongue. (Patient not taking: Reported on 07/10/2024) 30 Tablet 1 Levothyroxine Sodium 75 MCG Oral Tablet (Levoxyl) TAKE 1 TABLET DAILY FIRST THING IN THE MORNING 90Tablet 3 Losartan Potassium 25 MG Oral Tablet (Cozaar) Take 1 Tablet by mouth in the morning. (Patient taking differently: Take 2 Tablets by mouth in the morning.) 30 Tablet 2 amLODIPine Besylate 5 MG Oral Tablet (Norvasc) Take 1 Tablet by mouth in the morning. Clotrimazole 1 % External Cream (Lotrimin) Apply topically to affected area 2 times a day. Apply asdirected Magnesium Chloride 64 MG Oral Tablet Delayed Release (Mag-64) Take 1 Tablet by mouth in the morningand 1 Tablet before bedtime. Triamcinolone Acetonide 0.5 % External Cream (Aristocort) Apply topically to affected area 2 times a day. Till better (Patient not taking: Reported on 07/10/2024) 15 g 0 Trulicity 0.75 MG/0.5ML Subcutaneous Solution Auto-injector (Dulaglutide) INJECT 1 PEN WEEKLY 6 mL 1 Veltassa 8.4 GM Oral Packet (Patiromer Sorbitex Calcium) Take 1 Packet by mouth every other day. 30Each 3 Nyamyc 143173 UNIT/GM External Powder (Nystatin) APPLY TOPICALLY TO AFFECTED AREA THREE TIMES A DAYAPPLY UNDER BREASTS AND BELLY 60 g 0 Atorvastatin Calcium 20 MG Oral Tablet (Lipitor) Take 1 Tablet by mouth in the morning. 90 Tablet 3 Amoxicillin-Pot Clavulanate 875-125 MG Oral Tablet (Augmentin) Take 1 Tablet by mouth in the morning and 1 Tablet before bedtime. No current facility-administered medications for this visit. documented in this encounter Plan of Treatment Upcoming Encounters Date Type Department Care Team (Late st Contact Info) Description 07/30/2024 6:00 PM EDT Office Visit [facility] [address] [place] [address] Milton Balderas MD [address] [place] [address] 07/30/2024 6:20 PM EDT Office Visit [facility] [address] [place] [address] Milton Balderas MD [address] [facility] [place] [address] 08/02/2024 11:30 AM EDT Telemedicine Pharmacy, [place] [address] [phone] [address] 08/12/2024 9:50 AM EDT Laboratory Laboratory, [place] [address] [place] [phone] [address] [place] [address] 08/13/2024 9:30 AM EDT Pharmacy Pharmacy, [address] [address] 08/19/2024 10:00 AM EDT Office Visit Cardiology, [place] [address] [place] [address] Magalis Bartholomew [facility] [address] [facility] [address] 12/27/2024 2:20 PM EDT Office [facility] [address] [facility] [place] [address] Milton Balderas MD [address] [place] [address] 01/30/2025 10:00 AM EDT Office Visit [facility] [address] [facility] [place] [phone] Lucila Flanagan CRNP [address] [place] [address] 07/29/2025 1:40 PM EDT Office Visit [facility] [address] [place] [address] Milton Balderas MD [address] [place] [address] Health Maintenance Due Date Last Done Comments [...] filedocumented as of this encounter Care Teams Chemist Pharmaceutical Relationship Specialty Start Date End Date Milton Balderas MD [address] [place] [address] PCP - General Family Medicine 10/13/20 documented as of this encounter
--- OUTSIDE RECORDS SUMMARY | 2024-08-19 10:33 | External Medical Summary | Summary of Care ---
Author Name Unknown Organization [facility] Address [address] [place] [address] Phone [phone] Care Team Providers Care Director Smb Sales Name Role Phone Milton Balderas MD Primary Care Provider + Reason for Visit * Reason Comments Outpatient Testing Encounter Details Date Type Department Care Team (Late st Contact Info) Description 07/11/2024 10:50 AM EST Laboratory Laboratory, [facility] [address] [place] [address] [place], Laboratory [address] [place] [address] Malaise and fatigue; History of non-ST elevation myocardial infarction (NSTEMI); Stage 3b chronic kidney disease (HCC) Allergies Active Allergy Reactions Criticality Noted Date Comments Neville Inhibitors Cough 09/29/2010 Lisinopril causes cough Ciprofloxacin Rash Medium 05/03/2014 Rash with first IV dose in hospital Metformin Diarrhea 09/29/2010 documented as of this encounter (statuses as of 07/11/2024) Medications ASPIRIN 81 MG PO TABSIndications:ta kes [...] CPAP every night at bedtime. Active Procrit 71892 UNIT/ML Injection SolutionIndication s:Anemia of chronic renal [...] Till better 15 g 03/09/20 24 Active Additional Information Patient not taking.Reported [...] 30 Each 3 05/03/20 24 Active Nyamyc 358913 UNIT/GM External Powder (Nystatin)Indicati ons:Tinea corporis APPLY [...] as of this encounter (statuses as of 07/11/2024) Active Problems Problem Noted Date Diagnosed Date [...] (11/10/2010): Found on barium swallow, 01/25/2010 at [facility] on CPAP 11/10/2010 Overview (02/06/2017): Sleep study on 12/24/2009, [facility], Cpap 8, flex setting 3 AHP ICD-10 update of inactive term History of basal cell cancer 11/10/2010 Overview (08/11/2015): BCC, left neck, 12/24/2009 ICD-10 update of inactive term HTN, goal below 130/80 09/29/2010 Dyslipidemia, goal LDL below 100 09/29/2010 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 Pernicious anemia Hypothyroidism GERD (gastroesophageal reflux disease) documented as of this encounter (statuses as of 07/11/2024) Resolved Problems Problem Noted Date Diagnosed Date [...] as of this encounter (statuses as of 07/11/2024) Immunizations Name Administration Dates Next Due COVID-19 mRNA, LNP-s, No Pre serve, 2-Dose Series ([employer] 03/15/2021,07/15/2020,06/17/2020 Pneumococcal Conjugate Vacc, 13 Valent [...] 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 on file Not on file Not on file documented as of this encounter Plan of Treatment Upcoming Encounters Date Type Department Care Team (Late st Contact Info) Description 07/30/2024 6:00 PM EDT Office Visit [facility] [address] [place] [address] Milton Balderas MD [address] [place] [address] 07/30/2024 6:20 PM EDT Office Visit [facility] [address] [place] [address] Milton Balderas MD [address] [place] [address] 08/02/2024 11:30 AM EDT Telemedicine Pharmacy, Elisabeth Alanis [address] [place] [phone] Elisabeth [address] [place] [address] 08/12/2024 9:50 AM EDT Laboratory Laboratory, El[facility]abeth Alanis [address] [facility] [place] [phone] [facility] [place] [address] 08/13/2024 9:30 AM EDT Pharmacy Pharmacy, [address] [address] 08/19/2024 10:00 AM EDT Office Visit Cardiology, [place] [address] [place] [address] Magalis Bartholomew MD [address] [place] [address] 12/27/2024 2:20 PM EDT Office Visit [facility] [address] [address] Milton Balderas MD [address] [place] [address] 01/30/2025 10:00 AM EDT Office Visit Sleep Disorders [facility] [address] [address] Lucila Flanagan CRNP [address] [place] [address] 07/29/2025 1:40 PM EDT Office Visit [facility] [address] [place] [address] Milton Balderas MD [address] [address] Pending Results Name Type Priority Associated Diagnoses Date /Time CBC WITH WBC DIFFERENTIAL Lab Routine Malaise and fatigue History of non-ST elevation myocardial infarction (NSTEMI) Stage 3b chronic kidney disease (HCC) 07/11/2024 10:50 AM EST BASIC METABOLIC PANEL Lab Routine Malaise and fatigue History of non-ST elevation myocardial infarction (NSTEMI) Stage 3b chronic kidney disease (HCC) 07/11/2024 10:50 AM EST CBC Lab Routine Malaise and fatigue History of non-ST elevation myocardial infarction (NSTEMI) Stage 3b chronic kidney disease (HCC) 07/11/2024 10:50 AM EST DIFFERENTIAL, AUTOMATED Lab Routine Malaise and fatigue History of non-ST elevation myocardial infarction (NSTEMI) Stage 3b chronic kidney disease (HCC) 07/11/2024 10:50 AM EST Health Maintenance Due Date Last Done [...] as of this encounter Visit Diagnoses Diagnosis Malaise and fatigue Other malaise and fatigue History of non-ST elevation myocardial infarction (NSTEMI) Old myocardial infarction Stage 3b chronic kidney disease (HCC) documented in this encounter Care Teams Director Smb Sales Relationship Specialty Start Date End Date Milton Balderas MD [address] [facility] [place] [address] PCP - General Family Medicine 10/13/20 documented as of this encounter
--- OUTSIDE RECORDS SUMMARY | 2024-08-19 10:33 | External Medical Summary | Summary of Care ---
Author Name Unknown Organization [facility] Address [address] [place] [address] Phone [phone] Care Team Providers Care Estimator Lumber Name Role Phone Milton Balderas MD Primary Care Provider + Reason for Referral * Evaluate & Treat - Unlimited Visits (Within 10 days (routine)) - Authorized Specialty Diagnoses / Procedures Referred By Contact Referred To Contact Cardiovascular Medicine / Cardiology Diagnoses Malaise and fatigue History of non-ST elevation myocardial infarction (NSTEMI) Stage 3b chronic kidney disease (HCC) Citlali Tony MD [address] [place] [address] [place] [address] Phone: tel: fax: Referral ID Status Reason Start Date Expiration Date Visits Requested Visits Authorized [id number] Authorized Specialty Services Required 07/10/2024 999 999 Question Answer Referral Priority Within 10 days (routine) Where should this appointment be scheduled? [facility] For which of the following conditions are you referring? Known CAD/CABG/Stent Reason for Visit * Reason Comments Acute Weak, no energy Encounter Details Date Type Department Care Team (Late st Contact Info) Description 07/10/2024 5:20 PM EST Office Visit General Internal Medicine [employer] [address] [place] [address] Citlali Tony MD [address] [place] [address] Malaise and fatigue*; History of non-ST elevation myocardial infarction (NSTEMI); [...] OR CHEW) 90 Tablet 3 06/20/19 Active Additional Information Patient not taking.Reported on 07/10/2024 Boost Oral Liquid Take by mouth daily. Active Vitamin D3 25 MCG (1000 UT) Oral Tablet (Vitamin D3)Indications:Vit cordova D deficiency Take 1 Tablet by mouth in the morning. 12/23/19 Active CPAP every night at bedtime. Active Procrit 75248 UNIT/ML Injection SolutionIndication s:Anemia of chronic renal failure, unspecified stage Inject 10,000 units subcutaneous every 4 weeks, 84-day supply. 3 mL 3 02/24/20 23 Active BD TB Syringe 27G X 1/2" [...] 30 Each 3 05/03/20 24 Active Nyamyc 878901 UNIT/GM External Powder (Nystatin)Indicati ons:Tinea corporis APPLY TOPICALLY TO AFFECTED AREA THREE TIMES A DAY APPLY UNDER BREASTS AND BELLY 60 g 05/06/20 24 Active Atorvastatin Calcium 20 MG Oral Tablet (Lipitor) Take 1 Tablet by mouth in the morning. 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 Not on file Not on file Not on file documented as of this encounter Last Filed Vital Signs Vital Sign Reading Time Taken Comments Blood Pressure 151/81 07/10/2024 5:20 PM EST Pulse 72 07/10/2024 5:20 PM EST Temperature 37.2 °C (99 °F) 07/10/2024 5:20 PM EST Respiratory Rate - - Oxygen Saturation 96% 07/10/2024 5:20 PM EST Inhaled Oxygen Concentration - - Weight 78.3 kg (172 lb 9.6 oz) 07/10/2024 5:20 P M EST Height - - Body Mass Index 28.72 01/30/2024 8:42 AM EDT documented in this encounter Progress Notes * Citlali Tony MD - 07/10/2024 5:48 PM EST SUBJECTIVE: Ekta Francisco is a 88 year old female. Chief Complaint Patient presents with Acute Weak, no energy Nursing Notes: Gianna Gerardo LPN 07/10/241724 Signed The patient has been properly identified by confirmation of name and date of . Chief Complaint Patient presents with Acute Weak, no energy States is not [...] follow-up status post NSTEMI. Was seen in [facility] ER end of June with nausea vomiting and diarrhea, states workup was negative. Denies any bloody stools or black stools weight up few lb, denies any leg edema. Does not have Cardiology follow-up Labs from June reviewed-stable Wt Readings from Last 4 Encounters: 07/10/24 172 lb 9.6 oz (78.3 kg) 03/09/24 166 lb 9.6 oz (75.6 kg) 02/29/24 168 lb (76.2 kg) 02/15/24 167 lb (75.8 kg) BP Readings from Last 5 Encounters: 07/10/24 151/81 06/27/24 171/86 03/14/24 165/64 03/09/24 126/78 02/29/24 124/50 Hemoglobin Results: Lab Results Component Value Date/Time HGB 11.0 (L) 07/01/2024 10:36 AM HGB 10.7 (L) 05/20/2024 11:05 AM HGB 11.7 (L) 04/08/2024 11:11 AM HGB 10.6 (A) 03/20/2022 12:00 AM HGB 10.2 (L) 05/18/2020 11:02 AM HGB 9.8 (L) 04/13/2020 10:53 AM HGB 10.5 (L) 03/16/2020 10:39 AM Creatinine Results: Lab Results Component Value Date/Time CREATININE - [facility] 1.7 (H) 07/01/2024 10:36 AM CREATININE - [facility] 1.41 (A) 06/20/2024 12:00 AM CREATININE - [facility] 1.5 (H) 05/20/2024 11:05 AM CREATININE - [facility] 1.3 (H) 04/08/2024 11:11 AM CREATININE - [facility] 1.66 (A) 03/20/2022 12:00 AM CREATININE - [facility] 1.4 (H) 05/18/2020 11:02 AM CREATININE - [facility] 1.6 (H) 03/16/2020 10:43 AM CREATININE - [facility] 1.5 (H) 02/17/2020 10:24 AM CREATININE, RANDOM URINE - [facility] 217 07/01/2024 10:36 AM CREATININE, RANDOM URINE - [facility] 179 12/04/2023 11:38 AM CREATININE, RANDOM URINE - [facility] 160 08/31/2023 09:31 AM CREATININE, RANDOM URINE - [facility] 140 06/24/2019 10:02 AM CREATININE, RANDOM URINE - [facility] 107 08/03/2018 12:14 PM CREATININE, RANDOM URINE - [facility] 124 02/26/2018 02:13 PM Patient Active Problem List Diagnosis Pernicious anemia [...] Well adult exam PSVT (paroxysmal supraventricular tachycardia) ([facility]) Mild dementia without behavioral disturbance, psychotic disturbance, mood disturbance, or anxiety ([facility]) Memory loss UTI symptoms Acute confusion 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 behavioral disturbance, psychotic disturbance, mood disturbance, or anxiety ([facility]) Type 2 diabetes mellitus with stage 3b chronic kidney disease, without long-term current use of insulin ([facility]) History of non-ST elevation myocardial infarction (NSTEMI) Current Outpatient Medications Medication Sig Dispense Refill [...] A DAY Dx: E11.9 200 Each 3 Vitamin D3 25 MCG (1000 UT) Oral Tablet (Vitamin D3) Take 1 Tablet by mouth in the morning. CPAP every night at bedtime. Procrit 80797 UNIT/ML Injection Solution Inject 10,000 units subcutaneous [...] TO 4 TIMES DAILY 400 Each 3 Ferrous Sulfate 325 (65 Fe) MG Oral Tablet (Feosol) Take 1 Tablet by mouth daily. 90 Tablet 1 Levothyroxine Sodium 75 MCG Oral [...] in the morningand 1 Tablet before bedtime. Trulicity 0.75 MG/0.5ML Subcutaneous Solution Auto-injector (Dulaglutide) INJECT 1 PEN WEEKLY 6 mL 1 Veltassa 8.4 GM Oral Packet (Patiromer Sorbitex Calcium) Take 1 Packet by mouth every other day. 30Each 3 Nyamyc 642854 UNIT/GM External Powder (Nystatin) APPLY TOPICALLY TO AFFECTED AREA THREE TIMES A DAYAPPLY UNDER BREASTS AND BELLY 60 g 0 Atorvastatin Calcium 20 MG Oral Tablet (Lipitor) Take 1 Tablet by mouth in the morning. 90 Tablet 3 Amoxicillin-Pot Clavulanate 875-125 MG Oral Tablet (Augmentin) Take 1 Tablet by mouth in the morning and 1 Tablet before bedtime. Oxybutynin Chloride ER 5 MG Oral Tablet Extended Release 24 Hour (Ditropan XL) TAKE 1 TABLET DAILY (DO NOT CUT, CRUSH OR CHEW) (Patient not taking: Reported on 07/10/2024) 90 Tablet 3 Boost Oral Liquid Take by mouth daily. (Patient not taking: Reported on 07/10/2024) Fluticasone Propionate 50 MCG/ACT Nasal Suspension (Flonase) Administer 2 Sprays into each nostril in the morning. (Patient not taking: Reported on 07/10/2024) 16 g 1 Estradiol 0.1 MG/GM Vaginal Cream (Estrace) Use 1gm nightly -rub around vaginal opening and use inside , for 2 weeks. Then use twice weekly. (Patient not taking: Reported on 07/10/2024) 42.5 g 3 Ondansetron 4 MG Oral Tablet Disintegrating (Zofran) Place 1 Tablet on tongue every 8 hours as needed for Nausea. dissolve on tongue. (Patient not taking: Reported on 07/10/2024) 30 Tablet 1 Triamcinolone Acetonide 0.5 % External Cream (Aristocort) Apply topically to affected area 2 times a day. Till better (Patient not taking: Reported on 07/10/2024) 15 g 0 No current facility-administered medications for this visit. Review of patient's allergies indicates: Allergen Reactions Ciprofloxacin Rash Rash with first IV dose in hospital Neville Inhibitors Cough Lisinopril causes cough Metformin Diarrhea OBJECTIVE: BP 151/81 | Pulse 72 | Temp 99 °F (37.2 °C) (Tympanic) | Wt 172 lb 9.6 oz (78.3 kg) | SpO2 96% | BMI 28.72 kg/m² | BSA 1.89 m² PHYSICAL EXAM: General: alert, healthy, no distress, well developed OP mm moist Heart: regular rhythm and rate,No murmurs. Lungs: lungs clear to auscultation Extremities: no edema Abdomen: Soft, non-tender, normal bowel sounds, no masses or organomegaly ASSESSMENT/PLAN: Malaise and fatigue (Primary) - CARDIOLOGY REFERRAL OP - CBC WITH WBC DIFFERENTIAL; Future; Expected date: 07/10/2024 - BASIC METABOLIC PANEL; Future; Expected date: 07/10/2024 History of non-ST elevation myocardial infarction (NSTEMI) - CARDIOLOGY REFERRAL OP - CBC WITH WBC DIFFERENTIAL; Future; Expected date: 07/10/2024 - BASIC METABOLIC PANEL; Future; Expected date: 07/10/2024 Stage 3b chronic kidney disease (HCC) - CARDIOLOGY REFERRAL OP - CBC WITH WBC DIFFERENTIAL; Future; Expected date: 07/10/2024 - BASIC METABOLIC PANEL; Future; Expected date: 07/10/2024 -blood pressure at goal for age ;Finishing up Augmentin given in the ER Rech labs Follow-up: Return if symptoms worsen or fail to improve. | Check-out note: 40 min appt PCP 2 ER f/u (This note was completed using the dictation program Fluency Direct. As such, there may be misspellings, word substitutions, or other variations that should not change the essence of the clinical content of this encounter note. If there is need for further clarification, please direct questions to the provider listed above.) Patient and / caregiver verbalize understanding of above instructions and agrees with plan of care. Citlali Tony MD 07/10/2024 documented in this encounter Nursing Notes * Gianna Gerardo LPN - 07/10/2024 5:18 PM EST The patient has been properly identified by confirmation of name and date of . Chief Complaint Patient presents with Acute Weak, no energy States is not feeling well, she is currently on antibiotics for UTI. States did vomit last week. Patient's spouse feels it's her medication, states when she doesn't take all this medication she feels better, but all this medication is not making her feel well. documented in this encounter Plan of Treatment Upcoming Encounters Date Type Department Care Team (Late st Contact Info) Description 07/30/2024 6:00 PM EDT Office Visit [facility] [address] [place] [address] Milton Balderas MD [address] [place] [address] 07/30/2024 6:20 PM EDT Office Visit [facility] [address] [place] [address] [facility] [place] [address] 08/02/2024 11:30 AM EDT Telemedicine Pharmacy, [place] [address] [place] [phone] Elisabeth [address] [address] 08/12/2024 9:50 AM EDT [facility] [place] [facility] [address] [facility] [place] [phone] Elisabeth Laboratory [facility] [place] [address] 08/13/2024 9:30 AM EDT Pharmacy Pharmacy, [address] [place] [address] [address] [place] [address] 08/19/2024 10:00 AM EDT Office Visit Cardiology, [place] [address] [place] [address] Magalis Bartholomew MD [address] [facility] [place] [address] 12/27/2024 2:20 PM EDT Office Visit [facility] [address] [place] [address] Milton Balderas MD [address] [place] [address] 01/30/2025 10:00 AM EDT Office Visit [facility] [address] [facility] [address] Lucila Flanagan CRNP [address] [place] [address] 07/29/2025 1:40 PM EDT Office Visit [facility] [address] [place] [address] Milton Balderas MD [address] [place] [address] Pending Results Name Type Priority Associated Diagnoses Date /Time BASIC METABOLIC PANEL Lab Routine Malaise and fatigue History of non-ST elevation myocardial infarction (NSTEMI) Stage 3b chronic kidney disease (HCC) 07/11/2024 10:50 AM EST Scheduled Orders Name Type Priority Associated Diagnoses Orde r Schedule BASIC METABOLIC PANEL Lab Routine Malaise and fatigue History of non-ST elevation myocardial infarction (NSTEMI) Stage 3b chronic kidney disease (HCC) Expected: 07/10/2024 (Approximate), Expires: 07/10/2025 Scheduled Referrals Name Type Priority Associated Diagnoses Orde r Schedule CARDIOLOGY REFERRAL OP Referral Within 10 days (routine) Malaise and fatigue History of non-ST elevation myocardial infarction (NSTEMI) Stage 3b chronic kidney disease (HCC) Ordered: 07/10/2024 Health Maintenance Due Date Last Done Comments [...] and fatigue- Primary Other malaise and fatigue History of non-ST elevation myocardial infarction (NSTEMI) Old myocardial infarction Stage 3b chronic kidney disease (HCC) documented in this encounter Care Teams Estimator Lumber Relationship Specialty Start Date End Date Milton Balderas MD [address] [place] [address] PCP - General Family Medicine 10/13/20 documented as of this encounter
--- OUTSIDE RECORDS SUMMARY | 2024-08-19 10:33 | External Medical Summary ---
Author Name Unknown Address Unknown Organization [id number]:[facility] - [facility] [address] [place] [address] Laboratory Report Ordering Provider Test Date Status ALEC SORIA 07/11/2024 10:50:56 Final Observation Date Value Abnormality Reference (Units ) Status BUN 07/11/2024 10:50:56 23 Above high normal 6-20 (mg/dL) Final Creatinine 07/11/2024 10:50:56 1.6 Above high normal 0.5-1.0 (mg/dL) Final Glomerular filtration rate/1.73 sq M.predicted [Volume Rate/Area] in Serum, Plasma or Blood by Creatinine-based formula (CKD-EPI) 07/11/2024 10:50:56 31 Below low normal >=60 (mL/min) Final eGFR is calculated based on the CKD-EPI 2020 equation. Sodium 07/11/2024 10:50:56 141 135-146 (m mol/L) Final Potassium 07/11/2024 10:50:56 4.7 3.5-5.1 (m mol/L) Final Cl 07/11/2024 10:50:56 102 98-107 (mm ol/L) Final CO2 07/11/2024 10:50:56 26 22-32 (mmo l/L) Final Anion gap 07/11/2024 10:50:56 13 7-15 (mmol /L) Final Glucose 07/11/2024 10:50:56 235 Above high normal 70 -120 (mg/dL) Final Calcium 07/11/2024 10:50:56 9.9 8.4-10.2 ( mg/dL) Final Performing Location [facility] - [address] [place] [address]
--- OUTSIDE RECORDS SUMMARY | 2024-08-19 10:33 | External Medical Summary ---
Author Name Unknown Address Unknown Organization [id number]:[facility] - [facility] [address] [facility] [place] [address] Laboratory Report Ordering Provider Test Date Status ALEC SORIA 07/11/2024 10:50:56 Final Observation Date Value Abnormality Reference (Units ) Status WBC, Total 07/11/2024 10:50:56 7.95 4.00-10.80 (K/uL) Final RBC 07/11/2024 10:50:56 3.93 3.85-5.15 (M/uL) Final Hemoglobin 07/11/2024 10:50:56 11.7 Below low normal 12.0-15.3 (g/dL) Final HCT 07/11/2024 10:50:56 36.3 36.0-45.2 (%) Final MCV 07/11/2024 10:50:56 92.4 81.5-97.5 (fL) Final MCH 07/11/2024 10:50:56 29.8 27.0-34.0 (pg) Final MCHC 07/11/2024 10:50:56 32.2 32.0-36.0 (g/dL) Final RDW 07/11/2024 10:50:56 12.1 11.5-15.5 (%) Final Platelets 07/11/2024 10:50:56 194 140-400 (K/uL) Final MPV 07/11/2024 10:50:56 11.4 6.6-11.1 (fL) Final Nucleated erythrocytes/100 leukocytes [Ratio] in Blood by Automated count 07/11/2024 10:50:56 0 <=0 (/100 WBCs) Final Performing Location LAB[facility]ATORY [facility] - [address] [place] [address]
--- OUTSIDE RECORDS SUMMARY | 2024-08-19 10:33 | External Medical Summary | Summary of Care ---
Author Name Unknown Organization [facility] Address [address] [place] [address] Phone [phone] Care Team Providers Care Nozzle Operator Name Role Phone Milton Balderas MD Primary Care Provider + Reason for Visit * Reason Onset Date Comments Referral 07/15/2024 Encounter Details Date Type Department Care Team (Late st Contact Info) Description 07/15/2024 New Patient Triage (TIE LAYER USE ONLY) Cardiology, [address] [address] Cornelia Ontiveros, RADIO DIVISION LIEUTENANT [address] [place] [address] Referral Allergies Active Allergy Reactions Criticality Noted Date Comments Neville Inhibitors Cough 09/29/2010 Lisinopril causes cough Ciprofloxacin Rash Medium 05/03/2014 Rash with first IV dose in hospital Metformin Diarrhea 09/29/2010 documented as of this encounter (statuses as of 07/16/2024) Medications ASPIRIN 81 MG PO TABSIndications:ta kes [...] CPAP every night at bedtime. Active Procrit 35890 UNIT/ML Injection SolutionIndication s:Anemia of chronic renal [...] 30 Each 3 05/03/20 24 Active Nyamyc 833813 UNIT/GM External Powder (Nystatin)Indicati ons:Tinea corporis APPLY [...] as of this encounter (statuses as of 07/16/2024) Active Problems Problem Noted Date Diagnosed Date [...] (11/10/2010): Found on barium swallow, 01/25/2010 at [facility] on CPAP 11/10/2010 Overview (02/06/2017): Sleep study on 12/24/2009, [facility], [...] as of this encounter (statuses as of 07/16/2024) Resolved Problems Problem Noted Date Diagnosed Date [...] as of this encounter (statuses as of 07/16/2024) Immunizations Name Administration Dates Next Due COVID-19 mRNA, LNP-s, No Pre serve, 2-Dose Series (COINLAB) 03/15/2021,07/15/2020,06/17/2020 Pneumococcal Conjugate Vacc, 13 Valent (Prevnar) [...] End 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 Hx of NSTEMIin the setting of acute infection and UTI. Echocardiogram shows normal LVEF and no wall motion abnormalities. May keep appt as scheduled to assess symptoms and adjust meds as appropriate. Conservative management was recommended during hospitalization. Thank you, JEEWL Casarez Cardiology [facility] * Sherice Gan LPN - 07/15/2024 9:37 AM EDT Images from the original note were not included. New Patient Triage What is the diagnosis/reason for referral?: Malaise and fatigue [R53.81, R53.83] - Primary History of non-ST elevation myocardial infarction (NSTEMI) [I25.2] Stage 3b chronic kidney disease (HCC) [N18.32] Enter order ID here: [id number] Specialty specific documentation: Other Discussed care plan [...] with the symptoms of a persistent fatigue. F/vivian Menezes-, last eval y in June for hospital follow-up status post NSTEMI. Was seen in [facility] ER end of June with nausea vomiting [...] morning. CPAP every night at bedtime. Procrit 54235 UNIT/ML Injection Solution Inject 10,000 units subcutaneous [...] mouth every other day. 30Each 3 Nyamyc 577809 UNIT/GM External Powder (Nystatin) APPLY TOPICALLY TO [...] Description 07/30/2024 6:00 PM EDT Office Visit [facility] ([place], [place]) [address] [address] Milton Balderas MD [address] [place] [address] 07/30/2024 6:20 PM EDT Office Visit [facility] ([place], [place]) [address] [address] Milton Balderas MD [address] [place] [place] [address] 08/02/2024 11:30 AM EDT Telemedicine Pharmacy, [place] [address] [facility] [place] [address] Elisabeth [facility] [address] [facility] [place] [address] 08/12/2024 9:50 AM EDT Laboratory [facility], [place] [facility] [address] [facility] [phone] Elisabeth, Laboratory [address] [facility] [place] [address] 08/13/2024 9:30 AM EDT Pharmacy Pharmacy, [address] [address] 08/19/2024 10:00 AM EDT Office Visit Cardiology, [address] [place] [address] Magalis Bartholomew MD [address] [place] [address] 12/27/2024 2:20 PM EDT Office Visit [facility] ([place], [place]) [address] [facility] [place] [address] Milton Balderas MD [address] [place] [address] 01/30/2025 10:00 AM EDT Office Visit [facility] [address] [place] [phone] Lucila Flanagan CRNP [address] [place] [address] 07/29/2025 1:40 PM EDT Office Visit [facility] ([place], [place]) [address] [place] [address] Milton Balderas MD [address] [place] [address] Health Maintenance Due Date Last Done Comments [...] filedocumented as of this encounter Care Teams Nozzle Operator Relationship Specialty Start Date End Date Milton Balderas MD [address] [place] [place] [address] PCP - General Family Medicine 10/13/20 documented as of this encounter
--- OUTSIDE RECORDS SUMMARY | 2024-08-19 10:33 | External Medical Summary | Summary of Care ---
Author Name Unknown Organization [facility] Address [address] [place] [address] Phone [phone] Care Team Providers Care Qa Automation Engineer Name Role Phone Milton Balderas MD Primary Care Provider + Encounter Details Date Type Department Care Team (Late st Contact Info) Description 07/15/2024 10:45 AM EDT Scheduled Telephone Care Coordination and Integration [address] [place], [place] [phone] Mari Singh, Community Health Skin Pass Operator [address], [place] [phone] Allergies Active Allergy Reactions Criticality Noted Date [...] CPAP every night at bedtime. Active Procrit 88945 UNIT/ML Injection SolutionIndication s:Anemia of chronic renal [...] 30 Each 3 05/03/20 24 Active Nyamyc 127054 UNIT/GM External Powder (Nystatin)Indicati ons:Tinea corporis APPLY [...] morning and 1 Tablet before bedtime. 07/02/19 25 Active documented as of this encounter [...] adult exam 07/28/2021 Overview (06/27/2024): 07/02 TTE [facility] , hx NSTEMI. 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 Patient did say that she was feeling tiredtoday but no increase in fatigue or weakness. No chest pains or chest tightness and no shortness ofbreath. No s/s of Uti. No falls. Patient did take her BP this am however did not write it down however she thought the top number was a little high but could not remember what it was. Has a lot goingon and just didn't write it down. This CHW suggested that she try to write it down as soon as she takes it on a piece of paper near where she is taking her BP. The same for her blood sugar. Patient said that they have been good. This CHW reviewed red flags with patient and encouraged patient to reach out to CM with any concerns or questions. Mari Singh- Community Health Worker 1 Support Services/[facility] [employer] [facility] [email or web address] documented in this encounter Plan of Treatment Upcoming Encounters Date Type Department Care Team (Late st Contact Info) Description 07/30/2024 6:00 PM EDT Office Visit [facility] [address] [place] [address] Milton Balderas MD [address] [place] [address] 07/30/2024 6:20 PM EDT Office Visit [facility] [address] [place] [address] Milton Balderas MD [address] [place] [address] 08/02/2024 11:30 AM EDT Telemedicine Pharmacy, [place] [address] [place] [phone] Elisabeth [facility] [address] [place] [address] 08/12/2024 9:50 AM EDT Laboratory Laboratory, [place] [address] [place] [phone] [place] [address] 08/13/2024 9:30 AM EDT Pharmacy Pharmacy, [place] [address] [place] [address] [place] [address] [place] [address] 08/19/2024 10:00 AM EDT Office Visit Cardiology, [place] [address] [place] [phone] Magalis Bartholomew MD [address] [facility] [phone] 12/27/2024 2:20 PM EDT Office Visit [facility] [address] [place] [address] Milton Balderas MD [address] [place] [address] 01/30/2025 10:00 AM EDT Office Visit [facility] Disorders Ctr [facility] [address] [place] [phone] Lucila Flanagan CRNP [address] [place] [address] 07/29/2025 1:40 PM EDT Office Visit [facility] [address] [address] Milton Balderas MD [address] [place] [address] Health Maintenance Due Date Last Done Comments [...] filedocumented as of this encounter Care Teams Qa Automation Engineer Relationship Specialty Start Date End Date Milton Balderas MD 132 [facility] [place] [address] PCP - General Family Medicine 10/13/20 documented as of this encounter
--- OUTSIDE RECORDS SUMMARY | 2024-08-19 10:33 | External Medical Summary | Summary of Care ---
Author Name Unknown Organization [facility] Address [address] [place] [address] Phone [phone] Care Team Providers Care Director Of Managed Services Name Role Phone Milton Balderas MD Primary Care Provider + Reason for Visit * Reason Comments Emergency Department Follow-Up ER dis charge 07.04.2024 for Abd pain and vomiting, symptoms have resolved. Pt reports experiencing leg pain. 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 Active Procrit 03630 UNIT/ML Injection SolutionIndication s:Anemia of chronic renal [...] dissolve on tongue. 30 Tablet 1 01/24/20 Active Additional Information Patient not taking.Reported on 07/30/2024 Levothyroxine Sodium 75 MCG Oral Tablet (Levoxyl) TAKE 1 TABLET DAILY FIRST THING IN THE MORNING 90 Tablet 3 02/08/20 Active Losartan Potassium 25 MG Oral Tablet [...] 1 PEN WEEKLY 6 mL 1 04/02/20 Active Veltassa 8.4 GM Oral Packet (Patiromer Sorbitex Calcium)Indication s:End stage renal disease (HCC) Take 1 Packet by mouth every other day. 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 30 Tablet 07/31/19 Active Boost Oral Liquid Take by mouth daily. 025 Discontin ued(Medic ation List Clean Up) Fluticasone Propionate 50 MCG/ACT Nasal Suspension (Flonase) Administer 2 Sprays into each nostril in the morning. 16 g 1 07/07/19 24 025 Discontin ued(Medic ation List Clean Up) amLODIPine Besylate 5 MG Oral Tablet (Norvasc) Take 1 Tablet by mouth in the morning. 025 Discontin ued(Refil l) Atorvastatin Calcium 20 MG Oral Tablet (Lipitor) Take 1 Tablet by mouth in the morning. 90 Tablet 3 06/27/19 25 025 Discontin ued(Refil l) Amoxicillin-Pot Clavulanate 875-125 MG Oral Tablet (Augmentin) Take 1 Tablet by mouth in the morning and 1 Tablet before bedtime. 07/02/19 025 Discontin ued(Medic ation List Clean Up) documented as of this encounter (statuses as of 07/31/2024) Active Problems Problem Noted Date Diagnosed Date Mild Alzheimer's dementia [facility] behavioral disturbance, psychotic disturbance, mood disturbance, or [...] 07/15/2022 Well adult exam 07/28/2021 Overview (06/27/2024): 2/25 TTE [facility] , hx NSTEMI. 02/27 colon-poor [...] (11/10/2010): Found on barium swallow, 01/25/2010 at [facility] on CPAP 11/10/2010 Overview (02/06/2017): Sleep study on 12/24/2009, [facility], Cpap 8, flex setting 3 AHP ICD-10 update of inactive term History of basal cell cancer 11/10/2010 Overview (08/11/2015): BCC, left neck, 12/24/2009 ICD-10 update of inactive term HTN, goal below 130/80 09/29/2010 Dyslipidemia, goal LDL below 100 09/29/2010 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 Pernicious anemia Hypothyroidism GERD (gastroesophageal reflux disease) documented as of this encounter (statuses as of 07/31/2024) Resolved Problems Problem Noted Date Diagnosed Date [...] as of this encounter (statuses as of 07/31/2024) Immunizations Name Administration Dates Next Due COVID-19 [...] 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 Subjective Ekta Francisco is a 88 year old female presenting for Emergency Department Follow-Up ( ER discharge 07.04.2024 for Abd pain and vomiting, symptoms have resolved. Pt reports experiencing leg pain. ) Here for f/u with . History of Present Illness The patient, with a history of heart issues, has had multiple recent hospital visits. Admitted [facility] with NSTEMI. Elev trop. it was suspected that the patient had a minor heart attack.Echo done--no wall motion abnormalities. Caridology consulted. The patient was prescribed Lipitor fo llowing this incident. Had f/u ER visits end of Jun at [facility] for n/v, given zofran, d/c home. Symptoms resolved. The patient has not reported any chest pain since her hospital visits. Reports being out of amlodipine & atorvastatin. Past Medical History: Diagnosis Date GERD (gastroesophageal reflux disease) severe on 2011 swallow study History of 2019 novel coronavirus disease (COVID-19) 05/24/202105/29 vaccinated. History of non-ST elevation myocardial infarction (NSTEMI) 06/27/2024 HTN, goal to be determined Hypothyroidism Mixed dyslipidemia Pernicious anemia Sleep apnea, obstructive Type 2 diabetes mellitus with hemoglobin A1c goal of less than 8.0% ([facility]) 09/29/2017 Past Surgical History: Procedure Laterality Date ARTHROPLASTY KNEE TOTAL Left 08/16/2016 ARTHROPLASTY KNEE TOTAL Right 03/02/2017 Knee replacement COLONOSCOPY THRU STOMA, W/BIOPSY 06/2006 path-normal COLONOSCOPY, DIAGNOSTIC (RECTUM) 06/26/2014 normal bx, diverticulosis, lipoma/COLONOSCOPY FLEXIBLE PROXIMAL DIAGNOSTIC performed by Gómez Ramirez MD at ENDOSCOPY [facility] COLONOSCOPY, DIAGNOSTIC (RECTUM) 05/05/2020 normal / COLONOSCOPY FLEXIBLE PROXIMAL DIAGNOSTIC performed by Kale Johns MD at ENDOSCOPY [facility] COLONOSCOPY, DIAGNOSTIC (RECTUM) 02/01/2023 poor prep/severe diverticulosis, narrowing of colon diverticular opening/COLONOSCOPY FLEXIBLE PROXIMAL DIAGNOSTIC performed by Irena Acosta DO at ENDOSCOPY [facility] DILATION AND CURETTAGE (D&C) 09/06/1999 EGD, FLEXIBLE, DIAGNOSTIC 02/15/2012 UPPER GI ENDOSCOPY DIAGNOSTIC performed by Gómez Ramirez MD at [facility] no h-pylori or barretts changes EGD, FLEXIBLE, W/BIOPSY 07/27/2006 path-normal REMOVAL OF APPENDIX REMOVE GALLBLADDER 1996 Current Outpatient Medications Medication Sig Dispense Refill ASPIRIN 81 MG PO TABS Take by mouth daily. Indications: takes at night 0 BD PEN NEEDLE SHORT U/F 31G X 8 MM USE WITH INSULIN UP TO 4 TIMES DAILY FOR DIABETES 1 Box Dosing Unit 11 Probiotic Product (PROBIOTIC DAILY) Capsule Take 1 Cap by mouth daily. Biotin 1 MG Capsule Take 1 Capsule by mouth in the morning. Metamucil 0.36 GM Oral Capsule (Psyllium) Take by mouth every other day . FreeStyle Lancets USE TO TEST BLOOD SUGAR 2 TIMES A DAY Dx: E11.9 200 Each 3 Oxybutynin Chloride ER 5 MG Oral Tablet Extended Release 24 Hour (Ditropan XL) TAKE 1 TABLET DAILY (DO NOT CUT, CRUSH OR CHEW) 90 Tablet 3 Vitamin D3 25 MCG (1000 UT) Oral Tablet (Vitamin D3) Take 1 Tablet by mouth in the morning. CPAP every night at bedtime. OneTouch Verio In Vitro Strip (Glucose Blood) [...] mouth in the morning.) 30 Tablet 2 Clotrimazole 1 % External Cream (Lotrimin) Apply [...] mouth every other day. 30Each 3 Nyamyc 043662 UNIT/GM External Powder (Nystatin) APPLY TOPICALLY TO AFFECTED AREA THREE TIMES A DAYAPPLY UNDER BREASTS AND BELLY 60 g 0 Atorvastatin Calcium 20 MG Oral Tablet (Lipitor) Take 1 Tablet by mouth in the morning. 30 Tablet 0 Atorvastatin Calcium 20 MG Oral Tablet (Lipitor) Take 1 Tablet by mouth in the morning. 90 Tablet 3 amLODIPine Besylate 5 MG Oral Tablet (Norvasc) Take 1 Tablet by mouth in the morning. 90 Tablet 3 amLODIPine Besylate 5 MG Oral Tablet (Norvasc) Take 1 Tablet by mouth in the morning. 30 Tablet 0 nitroglycerin (NITROSTAT) 0.[address] 1 Tablet under the tongue every 5 minutes as needed. (Patient not taking: Reported on 07/30/2024) Procrit 08003 UNIT/ML Injection Solution Inject 10,000 units subcutaneous every 4 weeks, 84-day supply. 3 mL 3 BD TB Syringe 27G X 1/2" 1 ML (Tuberculin Syringe) Use to inject Procrit monthly or as directed 3 Each 1 Estradiol 0.1 MG/GM Vaginal Cream (Estrace) Use 1gm nightly -rub around vaginal opening and use inside , for 2 weeks. Then use twice weekly. (Patient not taking: Reported on 02/29/2024) 42.5 g 3 Ondansetron 4 MG Oral Tablet Disintegrating (Zofran) Place 1 Tablet on tongue every 8 hours as needed for Nausea. dissolve on tongue. (Patient not taking: Reported on 03/09/2024) 30 Tablet 1 Triamcinolone Acetonide 0.5 % External Cream (Aristocort) Apply topically to affected area 2 times a day. Till better (Patient not taking: Reported on 07/30/2024) 15 g 0 No current facility-administered medications for this visit. Objective BP 150/66 (BP Site: Left Arm, BP Position: Sitting, BP Cuff Size: Regular) | Pulse 64 | Temp 98.4 °F (36.9 °C) (Tympanic) | Wt 170 lb 3.2 oz (77.2 kg) | BMI 28.32 kg/m² | BSA 1.88 m² Physical Exam CARDIOVASCULAR: Heart regular rate and rhythm. Results LABS Troponin: elevated (06/21/2024) Cholesterol: 52 mg/dL LDL on kristin. Assessment and Plan Assessment & Plan Hx NSTEMI (non-ST elevated myocardial infarction) Recent NSTEMI with elevated troponin. No chest pain post-hospitalization. Atorvastatin effective inreducing LDL from 130 to 52. - Refill atorvastatin 20 mg oral daily. One-month supply at [facility], three-month supply through [email or web address] CAD-cont med mgmt as above. Hypertension Hypertension --restart amlodipine. No ankle swelling. - Continue amlodipine 5 mg oral daily. Wrap-Up I spent a total of 30-39 minutes (exact time 33 mins) on the date of service in preparation, delivery, and documentation of the care provided to Ekta Francisco excluding any time spent in the performance of separately billed services. Text in this note was generated using an ambient documentation service. I discussed the use of a device to record and summarize our discussion today. All persons present during the encounter consented to its use. documented in this encounter Nursing Notes * Álvaro Cagle CMA - 07/30/2024 5:57 PM EDT The patient has been properly identified by confirmation of name and date of . Chief Complaint Patient presents with Emergency Department Follow-Up PH ER discharge 07.04.2024 for Abd pain and vomiting, symptoms have resolved. documented in this encounter Plan of Treatment Upcoming Encounters Date Type Department Care Team (Late st Contact Info) Description 08/02/2024 11:30 AM EDT [facility] [place] [facility] [address] [facility] [phone] Elisabeth [facility] [address] [place] [address] 08/12/2024 9:50 AM EDT Laboratory [facility] [place] [facility] [address] [place] [phone] [facility] [address] [place] [address] 08/13/2024 9:30 AM EDT Pharmacy Pharmacy, [address] [address] 08/19/2024 10:00 AM EDT Office Visit Cardiology, [place] [address] [place] [address] Magalis Bartholomew MD [address] [place] [address] 12/27/2024 2:20 PM EDT Office Visit Family Practice [facility] [address] [place] [address] Milton Balderas MD [address] [place] [address] 01/30/2025 10:00 AM EDT Office Visit [facility] Disorders Ctr [facility] [address] [place] [phone] Lucila Flanagan CRNP [address] [place] [address] 07/29/2025 1:40 PM EDT Office Visit Family Practice [facility] [address] [place] [address] Milton Balderas MD [address] [place] [address] Health Maintenance Due Date Last Done Comments [...] as of this encounter Visit Diagnoses Diagnosis 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
--- OUTSIDE RECORDS SUMMARY | 2024-08-19 10:33 | External Medical Summary ---
Author Name Unknown Address Unknown Organization [id number]:[facility] [place] [address] [facility] [place] [address] Laboratory Report Ordering Provider Test Date Status YANGALEC 07/11/2024 10:50:56 Final Observation Date Value Abnormality Reference (Units ) Status SYNC LEUKOCYTES IN BLOOD BY AUTOMATED COUNT 07/11/2024 10:50:56 7.95 4.00-10.80 (K/uL) Final Segs 07/11/2024 10:50:56 63.7 40.0-75.0 (%) Final Lymphs % 07/11/2024 10:50:56 22.4 18.0-42.0 (%) Final Monos 07/11/2024 10:50:56 8.3 1.0-11.0 (%) Final Eosinophils 07/11/2024 10:50:56 4.7 0.0-6.0 (%) Final Basos 07/11/2024 10:50:56 0.5 0.0-2.0 (%) Final Immature Granulocyte, Percent 07/11/2024 10:50:56 0.4 0.0-2.0 (%) Final Absolute Segs 07/11/2024 10:50:56 5.07 1.80-7.70 (K/uL) Final Lymphs, absolute 07/11/2024 10:50:56 1.78 1.00-4.80 (K/ul) Final Monos, Abs 07/11/2024 10:50:56 0.66 0.00-1.10 (K/uL) Final Eos, Abs 07/11/2024 10:50:56 0.37 0.00-0.70 (K/uL) Final Basos, Abs 07/11/2024 10:50:56 0.04 0.00-0.20 (K/uL) Final Immature Granulocytes, Number 07/11/2024 10:50:56 0.03 0.00-0.20 (K/uL) Final Performing Location [facility] [place] [facility] [place] [address]
--- OUTSIDE RECORDS SUMMARY | 2024-08-19 10:34 | External Medical Summary | Summary of Care ---
Author Name Unknown Organization [facility] Address [address] [place] [address] Phone [phone] Care Team Providers Care Teacher Aide Name Role Phone Milton Balderas MD Primary Care Provider + Encounter Details Date Type Department Care Team (Late st Contact Info) Description 07/03/2024 Orders Only Family Practice [facility] [address] [place] [address] Milton Balderas MD [address] [place] [address] Allergies Active Allergy Reactions Criticality Noted Date Comments Neville Inhibitors Cough 09/29/2010 Lisinopril causes cough Ciprofloxacin Rash Medium 05/03/2014 Rash with first IV dose in hospital Metformin Diarrhea 09/29/2010 documented as of this encounter (statuses as of 07/03/2024) Medications ASPIRIN 81 MG PO TABSIndications:ta kes [...] OR CHEW) 90 Tablet 3 06/20/19 Active Boost Oral Liquid Take by mouth daily. Active Vitamin D3 25 MCG (1000 UT) Oral Tablet (Vitamin D3)Indications:Vit cordova D deficiency Take 1 Tablet by mouth in the morning. 12/23/19 Active CPAP every night at bedtime. Active Procrit 77978 UNIT/ML Injection SolutionIndication s:Anemia of chronic renal [...] 30 Each 3 05/03/20 24 Active Nyamyc 055668 UNIT/GM External Powder (Nystatin)Indicati ons:Tinea corporis APPLY TOPICALLY TO AFFECTED AREA THREE TIMES A DAY APPLY UNDER BREASTS AND BELLY 60 g 05/06/20 24 Active Atorvastatin Calcium 20 MG Oral Tablet (Lipitor) Take 1 Tablet by mouth in the morning. 90 Tablet 3 06/27/19 25 Active documented as of this encounter (statuses as of 07/03/2024) Active Problems Problem Noted Date Diagnosed Date [...] exam 07/28/2021 Overview (06/27/2024): 07/02 TTE [facility] , hx NSTEMI. 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 on file Not on file Not on file documented as of this encounter Plan of Treatment Upcoming Encounters Date Type Department Care Team (Late st Contact Info) Description 08/02/2024 11:30 AM EDT [facility] [place] [facility] [address] [facility] [phone] [facility] [address] [facility] [address] 08/12/2024 9:50 AM EDT Laboratory [facility] [place] [facility] [address] [facility] [phone] [facility] [address] [place] [address] 08/13/2024 9:30 AM EDT Pharmacy Pharmacy, [address] [address] 12/27/2024 2:20 PM EDT Office Visit Family Practice [facility] [address] [place] [address] Milton Balderas MD [address] [place] [address] 01/30/2025 10:00 AM EDT Office Visit Sleep Disorders Ctr [facility] [address] [phone] Lucila Flanagan CRNP [address] [place] [address] 07/29/2025 1:40 PM EDT Office Visit Family Practice [facility] [address] [place] [address] Milton Balderas MD [address] [place] [address] Health Maintenance Due Date Last Done Comments [...] Procedure Name Priority Date/Time Associated Diagnosis Comments XR CHEST 1 VIEW Routine 07/02/2024 documented in this encounter Results * XR CHEST 1 VIEW (07/02/2024) Anatomical Region Laterality Modality Chest Other 07/02/2024 us History Per Patient RADIOLOGY (RAD GENERAL) Alida l Result documented in this encounter Care Teams Teacher Aide Relationship Specialty Start Date End Date Milton Balderas MD [address] [facility] [place] [address] PCP - General Family Medicine 10/13/20 documented as of this encounter
--- OUTSIDE RECORDS SUMMARY | 2024-08-19 10:34 | External Medical Summary | Summary of Care ---
Author Name Unknown Organization [facility] Address [address] [place] [address] Phone [phone] Care Team Providers Care Senior Technical Project Manager Name Role Phone Milton Balderas MD Primary Care Provider + Encounter Details Date Type Department Care Team (Late st Contact Info) Description 07/02/2024 Orders Only Family Practice [facility] [address] [place] [address] Milton Balderas MD [address] [place] [address] Allergies Active Allergy Reactions Criticality Noted Date Comments Neville Inhibitors Cough 09/29/2010 Lisinopril causes cough Ciprofloxacin Rash Medium 05/03/2014 Rash with first IV dose in hospital Metformin Diarrhea 09/29/2010 documented as of this encounter (statuses as of 07/02/2024) Medications ASPIRIN 81 MG PO TABSIndications:ta kes [...] CPAP every night at bedtime. Active Procrit 30420 UNIT/ML Injection SolutionIndication s:Anemia of chronic renal [...] day. Till better 15 g 03/09/20 Active Trulicity 0.75 MG/0.5ML Subcutaneous Solution Auto-injector (Dulaglutide)Indic ations:Type 2 diabetes mellitus with stage 4 chronic kidney disease, without long-term current use of insulin (HCC) INJECT 1 PEN WEEKLY 6 mL 1 04/02/20 24 Active Veltassa 8.4 GM Oral Packet (Patiromer Sorbitex Calcium)Indication s:End stage renal disease (HCC) Take 1 Packet by mouth every other day. 30 Each 3 05/03/20 24 Active Nyamyc 086867 UNIT/GM External Powder (Nystatin)Indicati ons:Tinea corporis APPLY TOPICALLY TO AFFECTED AREA THREE TIMES A DAY APPLY UNDER BREASTS AND BELLY 60 g 05/06/20 24 Active Atorvastatin Calcium 20 MG Oral Tablet (Lipitor) Take 1 Tablet by mouth in the morning. 90 Tablet 3 06/27/19 25 Active documented as of this encounter (statuses as of 07/02/2024) Active Problems Problem Noted Date Diagnosed Date [...] adult exam 07/28/2021 Overview (06/27/2024): 07/02 TTE [facility] , hx NSTEMI. 02/27 colon-poor prep, f/u [...] (11/10/2010): Found on barium swallow, 01/25/2010 at [facility] on CPAP 11/10/2010 Overview (02/06/2017): Sleep study on 12/24/2009, [facility], Cpap 8, flex setting 3 AHP ICD-10 update of inactive term History of basal cell cancer 11/10/2010 Overview (08/11/2015): BCC, left neck, 12/24/2009 ICD-10 update of inactive term HTN, goal below 130/80 09/29/2010 Dyslipidemia, goal LDL below 100 09/29/2010 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 Pernicious anemia Hypothyroidism GERD (gastroesophageal reflux disease) documented as of this encounter (statuses as of 07/02/2024) Resolved Problems Problem Noted Date Diagnosed Date [...] as of this encounter (statuses as of 07/02/2024) Immunizations Name Administration Dates Next Due COVID-19 mRNA, LNP-s, No Pre serve, 2-Dose Series (SoundTag) 03/15/2021,07/15/2020,06/17/2020 Pneumococcal Conjugate Vacc, 13 Valent (Prevnar) [...] 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 [address] [facility] [address] 08/12/2024 9:50 AM EDT Laboratory [facility], [place] [facility] [address] [facility] [phone] [facility] [address] [place] [address] 08/13/2024 9:30 AM EDT Pharmacy Pharmacy, [address] [address] 12/27/2024 2:20 PM EDT Office Visit Family Practice [facility] [address] [place] [address] Milton Balderas MD [address] [place] [address] 01/30/2025 10:00 AM EDT Office Visit Sleep Disorders Ctr [facility] [address] [place] [address] [phone] Lucila Flanagan CRNP [address] [place] [address] 07/29/2025 1:40 PM EDT Office Visit Family Practice [facility] [address] [place] [address] Milton Balderas MD [address] [place] [address] Health Maintenance Due Date Last Done Comments [...] Procedure Name Priority Date/Time Associated Diagnosis Comments CHEMISTRY-OUTSIDE Routine 06/20/2024 CHEMISTRY-OUTSIDE Routine 06/20/2024 documented in this encounter Results * (ABNORMAL) CHEMISTRY-OUTSIDE (06/20/2024) Not all results display below - see scan for full detail OUTSIDE LAB (SEE SCANNED REPORT) Comment:SCAN INCLUDES - A1C CREATININE OUTSIDE L AB (SEE SCANNED REPORT) EGFR OUTSIDE LA B (SEE SCANNED REPORT) POTASSIUM OUTSIDE LA B (SEE SCANNED REPORT) GLUCOSE OUTSIDE LA B (SEE SCANNED REPORT) HOURS FASTING OUTSID E LAB (SEE SCANNED REPORT) TRIGLYCERIDES-OUT SIDE LAB OUTSIDE LAB (SEE SCANNED REPORT) CHOLESTEROL-OUTSI DE LAB OUTSIDE LAB (SEE SCANNED REPORT) HDL-OUTSIDE LAB OUTS BJORN LAB (SEE SCANNED REPORT) CHOL/HDL RATIO-OUTSIDE LAB OUTSIDE LA B (SEE SCANNED REPORT) LDL (CALCULATED)-OUTS BJORN LAB OUTSIDE LAB (SEE SCANNED REPORT) LDL (DIRECT MEASURE)-OUTSIDE LAB OUTSIDE LAB (SEE SCANNED REPORT) HEMOGLOBIN, [id number] LAB 6.5(A) 4.5 - 5.6 % OUTSIDE LAB (SEE SCANNED REPORT) PHOSPHORUS-OUTSID E LAB OUTSIDE LAB (SEE SCANNED REPORT) PTH-OUTSIDE LAB OUTS BJORN LAB (SEE SCANNED REPORT) MICROALBUMIN RATIO-OUTSIDE LAB OUTSIDE LA B (SEE SCANNED REPORT) PROTEIN, UA-OUTSIDE LAB OUTSIDE LAB (SEE SCANNED REPORT) HGB OUTSIDE LA B (SEE SCANNED REPORT) 06/20/2024 us Luis Coello MD LABORATORY Final Result OUTSIDE LAB (SEE SCANNED REPORT) * (ABNORMAL) CHEMISTRY-OUTSIDE (06/20/2024) Not all results display below - see scan for full detail OUTSIDE LAB (SEE SCANNED REPORT) Comment:SCAN INCLUDES - BMP CREATININE 1.41(A) 0.6 - 1.2 MG/DL OUTSIDE LAB (SEE SCANNED REPORT) EGFR 36.33 ML/MIN OUTSIDE LA B (SEE SCANNED REPORT) POTASSIUM 4.4 3.5 - 5.1 MMOL/L OUTSIDE LAB (SEE SCANNED REPORT) GLUCOSE 134(A) 70 - 99 MG/DL OUTSIDE LAB (SEE SCANNED REPORT) HOURS FASTING OUTSID E LAB (SEE SCANNED REPORT) TRIGLYCERIDES-OUT SIDE LAB OUTSIDE LAB (SEE SCANNED REPORT) CHOLESTEROL-OUTSI DE LAB OUTSIDE LAB (SEE SCANNED REPORT) HDL-OUTSIDE LAB OUTS BJORN LAB (SEE SCANNED REPORT) CHOL/HDL RATIO-OUTSIDE LAB OUTSIDE LA B (SEE SCANNED REPORT) LDL (CALCULATED)-OUTS BJORN LAB OUTSIDE LAB (SEE SCANNED REPORT) LDL (DIRECT MEASURE)-OUTSIDE LAB OUTSIDE LAB (SEE SCANNED REPORT) HEMOGLOBIN, B0A-[id number] LAB OUTSIDE LAB (SEE SCANNED REPORT) PHOSPHORUS-OUTSID E LAB OUTSIDE LAB (SEE SCANNED REPORT) PTH-OUTSIDE LAB OUTS BJORN LAB (SEE SCANNED REPORT) MICROALBUMIN RATIO-OUTSIDE LAB OUTSIDE LA B (SEE SCANNED REPORT) PROTEIN, UA-OUTSIDE LAB OUTSIDE LAB (SEE SCANNED REPORT) HGB OUTSIDE LA B (SEE SCANNED REPORT) 06/20/2024 us Edil Angel MD LABORATORY Final Result OUTSIDE LAB (SEE SCANNED REPORT) documented in this encounter Care Teams Senior Technical Project Manager Relationship Specialty Start Date End Date Milton Balderas MD [address] [place] [address] PCP - General Family Medicine 10/13/20 documented as of this encounter
--- OUTSIDE RECORDS SUMMARY | 2024-08-19 10:34 | External Medical Summary | Summary of Care ---
Author Name Unknown Organization [facility] Address [address] [place] [address] Phone [phone] Care Team Providers Care Radar Systems Engineer Name Role Phone Milton Balderas MD Primary Care Provider + Encounter Details Date Type Department Care Team (Late st Contact Info) Description 06/20/2024 Result Scan Unspecified Department <No scans attached> Allergies Active Allergy Reactions Criticality Noted Date [...] CPAP every night at bedtime. Active Procrit 51229 UNIT/ML Injection SolutionIndication s:Anemia of chronic renal [...] 30 Each 3 05/03/20 24 Active Nyamyc 839907 UNIT/GM External Powder (Nystatin)Indicati ons:Tinea corporis APPLY TOPICALLY TO AFFECTED AREA THREE TIMES A DAY APPLY UNDER BREASTS AND BELLY 60 g 05/06/20 24 Active documented as of this encounter (statuses as of 07/02/2024) Active Problems Problem Noted Date Diagnosed Date Mild Alzheimer's dementia [facility] behavioral disturbance, psychotic disturbance, mood disturbance, [...] (11/10/2010): Found on barium swallow, 01/25/2010 at [facility] on CPAP 11/10/2010 Overview (02/06/2017): Sleep study on 12/24/2009, [facility], Cpap 8, flex setting 3 [...] mRNA, LNP-s, No Pre serve, 2-Dose Series (OpenRent) 03/15/2021,07/15/2020,06/17/2020 Pneumococcal Conjugate Vacc, 13 Valent (Prevnar) [...] 08/23/2023 Does the household have a re lar source of income? 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 on file Not on file Not on file documented as of this encounter Plan of Treatment Upcoming Encounters Date Type Department Care Team (Late st Contact Info) Description 08/02/2024 11:30 AM EDT Telemedicine Pharmacy, [place] [phone] El[facility]abeth [facility] [address] [facility] [address] 08/12/2024 9:50 AM EDT Laboratory Laboratory, [place] [address] [place] [phone] [facility] [address] [place] [address] 08/13/2024 9:30 AM EDT Pharmacy [facility], [address] [address] 12/27/2024 2:20 PM EDT Office Visit [facility] [address] [place] [address] Milton Balderas MD [address] [place] [address] 01/30/2025 10:00 AM EDT Office Visit Sleep Disorders Ctr [facility] [address] [place] [phone] Lucila Flanagan CRNP [address] [place] [address] 07/29/2025 1:40 PM EDT Office Visit [facility] [address] [place] [address] Milton Balderas MD [address] [place] [address] Health Maintenance Due Date Last Done Comments [...] Procedure Name Priority Date/Time Associated Diagnosis Comments ECHOCARDIOLOGY SCANNED RESULT 06/20/2024 documented in this encounter Results * ECHOCARDIOLOGY SCANNED RESULT (06/20/2024) 06/20/2024 us No Physician Data Unknown ECHOCARDIOLOGY Final Result documented in this encounter Care Teams Radar Systems Engineer Relationship Specialty Start Date End Date Milton Balderas MD [address] [place] [address] PCP - General Family Medicine 10/13/20 documented as of this encounter
--- OUTSIDE RECORDS SUMMARY | 2024-08-19 10:34 | External Medical Summary | Summary of Care ---
Author Name Unknown Organization [facility] Address [address] [place] [address] Phone [phone] Care Team Providers Care Bed Setter Name Role Phone Milton Balderas MD Primary Care Provider + Encounter Details Date Type Department Care Team (Late st Contact Info) Description 07/01/2024 3:00 PM EST Scheduled Telephone Care Coordination and Integration [address], [place] [phone] Mari Singh, Community Health Market Analysis Director [address], [place] [phone] Allergies Active Allergy Reactions Criticality Noted Date Comments Neville Inhibitors Cough 09/29/2010 Lisinopril causes cough Ciprofloxacin Rash Medium 05/03/2014 Rash with first IV dose in hospital Metformin Diarrhea 09/29/2010 documented as of this encounter (statuses as of 07/01/2024) Medications ASPIRIN 81 MG PO TABSIndications:ta kes [...] CPAP every night at bedtime. Active Procrit 26019 UNIT/ML Injection SolutionIndication s:Anemia of chronic renal [...] 30 Each 3 05/03/20 24 Active Nyamyc 767829 UNIT/GM External Powder (Nystatin)Indicati ons:Tinea corporis APPLY TOPICALLY TO AFFECTED AREA THREE TIMES A DAY APPLY UNDER BREASTS AND BELLY 60 g 05/06/20 24 Active Atorvastatin Calcium 20 MG Oral Tablet (Lipitor) Take 1 Tablet by mouth in the morning. 90 Tablet 3 06/27/19 25 Active documented as of this encounter (statuses as of 07/01/2024) Active Problems Problem Noted Date Diagnosed Date [...] adult exam 07/28/2021 Overview (06/27/2024): 07/02 TTE [facility] , hx NSTEMI. 02/27 colon-poor prep, f/u [...] (11/10/2010): Found on barium swallow, 01/25/2010 at [facility] on CPAP 11/10/2010 Overview (02/06/2017): Sleep study on 12/24/2009, [facility], Cpap 8, flex setting 3 AHP ICD-10 update of inactive term History of basal cell cancer 11/10/2010 Overview (08/11/2015): BCC, left neck, 12/24/2009 ICD-10 update of inactive term HTN, goal below 130/80 09/29/2010 Dyslipidemia, goal LDL below 100 09/29/2010 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 Pernicious anemia Hypothyroidism GERD (gastroesophageal reflux disease) documented as of this encounter (statuses as of 07/01/2024) Resolved Problems Problem Noted Date Diagnosed Date [...] as of this encounter (statuses as of 07/01/2024) Immunizations Name Administration Dates Next Due COVID-19 mRNA, LNP-s, No Pre serve, 2-Dose Series (Ludesi) 03/15/2021,07/15/2020,06/17/2020 Pneumococcal Conjugate Vacc, 13 Valent (Prevnar) [...] 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 Patient reported that she went and had blood work today and didn't get the results back yet. Patient told CHW this several times during conversation. Patient's energy level has been fine and no increase in fatigue or weakness to her knowledge. No chest pains or chest tightness. No shortness of breath and no s/s of UTI. No falls. Patient does not check her BP everyday and was not sure of what her last reading was. Patient reported that it stays about the same when she does take it so she usually does not check it all the time. This CHW suggested that she take her BP once a day or at least regularly. Patient did not know what her blood sugar was today as well. Patient said she could not recall what it was and she used to write it down butshe doesn't any more. This CHW also suggested writing down her blood sugars when she does check it.This CHW reviewed red flags with patient. This CHW gave patient CM's contact name and number and encouraged patient to reach out with concerns or questions. Patient was able to find a small piece of paper to write it down on and repeated back to this CHW the info CHW gave her. Mari Singh- Community Health Worker 1 Support Services/[facility] [employer] [facility] Plan documented in this encounter Plan of Treatment Upcoming Encounters Date Type Department Care Team (Late st Contact Info) Description 07/02/2024 9:30 AM EST Pharmacy Pharmacy, [place] [address] [place] [address] Clinic, [facility] [address] [place] [address] 08/02/2024 11:30 AM EDT Telemedicine Pharmacy, [place] [facility] [address] [facility] [place] [phone] [facility] [address] [facility] [address] 12/27/2024 2:20 PM EDT Office [facility] [address] [address] Milton Balderas MD [address] [place] [address] 01/30/2025 10:00 AM EDT Office Visit Sleep Disorders Ctr [facility] [address] [phone] Lucila Flanagan CRNP [address] [place] [address] 07/29/2025 1:40 PM EDT Office Visit [facility] [address] [address] Milton Balderas MD [address] [place] [address] Health Maintenance Due Date Last Done Comments Adult Wellness Visit 12/25/2021 12/25/2020 COVID-19 Vaccine ( season) 2024 03/15/2021, 07/15/2020, 06/17/2020 Diabetic Foot Exam 05/25/2024 05/25/2023, 0 08/18/2021, 08/27/2020, Additional history exists Depression Screening 08/22/2024 08/23/2023 Diabetic Eye Exam 12/27/2024 12/28/2023, (Done elsewhere), 12/23/2020, Additional history exists HbA1c 12/29/2024 07/01/2024, 06/08 (Done elsewhere), 12/04/2023, Additional history exists TSH 05/20/2025 07/01/2024, 05/08, 04/08/2024, Additional history exists Albumin/Creatinine Ratio 07/01/2025 025, 12/04/2023, 08/31/2023, Additional history exists DTap/Tdap Vaccines (3 - [...] filedocumented as of this encounter Care Teams Bed Setter Relationship Specialty Start Date End Date Milton Balderas MD [address] [place] [address] PCP - General Family Medicine 10/13/20 documented as of this encounter
--- OUTSIDE RECORDS SUMMARY | 2024-08-19 10:34 | External Medical Summary | Summary of Care ---
Author Name Unknown Organization [facility] Address [address] [place] [address] Phone [phone] Care Team Providers Care Predictive Maintenance Technician Name Role Phone Milton Balderas MD Primary Care Provider + Reason for Visit * Reason Onset Date Comments Anemia Follow-Up 07/02/2024 Encounter Details Date Type Department Care Team (Late st Contact Info) Description 07/02/2024 9:30 AM [facility] Pharm[facility] Pharmacy, [place] [address], [place] [id number] Clinic, Anemia [address] [place], [place] [phone] Anemia of chronic renal failure, stage 4 (severe) ([facility])* Allergies Active Allergy Reactions Criticality [...] CPAP every night at bedtime. Active Procrit 10866 UNIT/ML Injection SolutionIndication s:Anemia of chronic renal [...] 30 Each 3 05/03/20 24 Active Nyamyc 499446 UNIT/GM External Powder (Nystatin)Indicati ons:Tinea corporis APPLY [...] adult exam 07/28/2021 Overview (06/27/2024): 07/02 TTE [facility] , hx NSTEMI. 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 Hgb is above target range. Iron studies adequate. B12/FA levels within target range. Patient reports she gets tired easily, but otherwise denies signs/symptoms of anemia. Plan: HOLD Procrit 10,000 units SQ [id number]. Last dose: Procrit 10,000 units SQ on 05/28/24 Next dose: Procrit 10,000 units SQ on 08/20/24 New or recurrent malignancy? none reported Follow-up [facility] scheduled for 08/12/24 at [place]. Anemia clinic will continue to follow, thank you for allowing us to participate in the care of thispatient. Capo Treviño, PharmD, [facility] Clinical Pharmacist Anemia Clinic P: [phone] F: [phone] 07/02/2024 10:19 AM Lab Results Component Value Date/Time HGB 11.0 [...] 11:30 AM EDT Telemedicine Pharmacy, [address] [place] [phone] [facility] [address] [facility] [place] [address] 08/12/2024 9:50 AM EDT Laboratory Laboratory, [address] [place] [phone] [facility], Laboratory [address] [place] [address] 08/13/2024 9:30 AM EDT Pharmacy Pharmacy, [place] [address] [place] [address] Clinic, Anemia [address] [place] [address] 12/27/2024 2:20 PM EDT Office Visit [facility] [address] [facility] [place] [address] Milton Balderas MD [address] [place] [address] 01/30/2025 10:00 AM EDT Office Visit [facility] [address] [facility] [place] [phone] Lucila Flanagan CRNP [address] [facility] [place] [address] 07/29/2025 1:40 PM EDT [facility] [place] [address] Milton Balderas MD 132 [facility] [place] [address] Scheduled Orders Name Type Priority Associated Diagnoses Orde r Schedule CBC WITH WBC DIFFERENTIAL AND ANEMIA REFLEX WORKUP Lab Routine Anemia of chronic renal failure, stage 4 (severe) (HCC) Expected: 08/12/2024 (Approximate), Expires: 07/30/2025 Health Maintenance Due Date Last Done Comments Adult Wellness Visit 12/25/2021 12/25/2020 COVID-19 Vaccine ( season) 2024 03/15/2021, 07/15/2020, 06/17/2020 Diabetic Foot Exam 05/25/2024 05/25/2023, 0 08/18/2021, 08/27/2020, Additional history exists Depression Screening 08/22/2024 08/23/2023 Diabetic Eye Exam 12/27/2024 12/28/2023, (Done elsewhere), 12/23/2020, Additional history exists HbA1c 12/29/2024 07/01/2024, 06/08 (Done elsewhere), 12/04/2023, Additional history exists Albumin/Creatinine Ratio 07/01/2025 025, [...] Primary documented in this encounter Care Teams Predictive Maintenance Technician Relationship Specialty Start Date End Date Milton Balderas MD [address] [place] [address] PCP - General Family Medicine 10/13/20 documented as of this encounter
--- OUTSIDE RECORDS SUMMARY | 2024-08-19 10:34 | External Medical Summary | Summary of Care ---
Author Name Unknown Organization [facility] Address [address] [place] [address] Phone [phone] Care Team Providers Care Gum Worker Name Role Phone Milton Balderas MD Primary Care Provider + Encounter Details Date Type Department Care Team (Late st Contact Info) Description 07/03/2024 Orders Only Family Practice [facility] [address] [place] [address] Milton Balderas MD [address] [place] [address] Allergies Active Allergy Reactions Criticality Noted Date [...] CPAP every night at bedtime. Active Procrit 93280 UNIT/ML Injection SolutionIndication s:Anemia of chronic renal [...] 30 Each 3 05/03/20 24 Active Nyamyc 883095 UNIT/GM External Powder (Nystatin)Indicati ons:Tinea corporis APPLY [...] adult exam 07/28/2021 Overview (06/27/2024): 07/02 TTE [facility] , hx NSTEMI. 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 on file Not on file Not on file documented as of this encounter Plan of Treatment Upcoming Encounters Date Type Department Care Team (Late st Contact Info) Description 08/02/2024 11:30 AM EDT [facility] [address] [facility] [phone] [facility] [address] [facility] [address] 08/12/2024 9:50 AM EDT Laboratory Laboratory, [facility] [address] [facility] [phone] [facility] [address] [facility] [place] [address] 08/13/2024 9:30 AM EDT Pharmacy Pharmacy, [address] [address] 12/27/2024 2:20 PM EDT Office Visit Family Practice [facility] [address] [place] [address] Milton Balderas MD [address] [place] [address] 01/30/2025 10:00 AM EDT Office Visit [facility] [address] [place] [phone] Lucila Flanagan CRNP [address] [place] [address] 07/29/2025 1:40 PM EDT Office Visit Family Practice [facility] [address] [place] [address] Milton Balderas MD [address] [place] [address] Health Maintenance Due Date Last Done Comments [...] Procedure Name Priority Date/Time Associated Diagnosis Comments CT CHEST WO CONTRAST Routine 07/02/2024 documented in this encounter Results * CT CHEST WO CONTRAST (07/02/2024) Anatomical Region Laterality Modality Chest, Body, Cardio Other 07/02/2024 us History Per Patient RAD CT Final Result documented in this encounter Care Teams Gum Worker Relationship Specialty Start Date End Date Milton Balderas MD [address] [facility] [place] [address] PCP - General Family Medicine 10/13/20 documented as of this encounter
--- OUTSIDE RECORDS SUMMARY | 2024-08-19 10:34 | External Medical Summary | Summary of Care ---
Author Name Unknown Organization [facility] Address [address] [place] [address] Phone [phone] Care Team Providers Care Lineman Apprentice Name Role Phone Milton Balderas MD Primary Care Provider + Encounter Details Date Type Department Care Team (Late st Contact Info) Description 07/04/2024 Result Scan Unspecified Department <No scans attached> Allergies Active Allergy Reactions Criticality Noted Date Comments Neville Inhibitors Cough 09/29/2010 Lisinopril causes cough Ciprofloxacin Rash Medium 05/03/2014 Rash with first IV dose in hospital Metformin Diarrhea 09/29/2010 documented as of this encounter (statuses as of 07/05/2024) Medications ASPIRIN 81 MG PO TABSIndications:ta kes [...] CPAP every night at bedtime. Active Procrit 59708 UNIT/ML Injection SolutionIndication s:Anemia of chronic renal [...] 30 Each 3 05/03/20 24 Active Nyamyc 444879 UNIT/GM External Powder (Nystatin)Indicati ons:Tinea corporis APPLY TOPICALLY TO AFFECTED AREA THREE TIMES A DAY APPLY UNDER BREASTS AND BELLY 60 g 05/06/20 24 Active Atorvastatin Calcium 20 MG Oral Tablet (Lipitor) Take 1 Tablet by mouth in the morning. 90 Tablet 3 06/27/19 25 Active documented as of this encounter (statuses as of 07/05/2024) Active Problems Problem Noted Date Diagnosed Date Mild Alzheimer's dementia [facility] behavioral disturbance, psychotic disturbance, mood disturbance, [...] exam 07/28/2021 Overview (06/27/2024): 07/02 TTE [facility] , hx NSTEMI. 02/27 colon-poor prep, f/u [...] on barium swallow, 01/25/2010 at [facility] on CPAP 11/10/2010 Overview (02/06/2017): Sleep study on 12/24/2009, [facility], Cpap 8, flex setting 3 AHP ICD-10 update of inactive term History of basal cell cancer 11/10/2010 Overview (08/11/2015): BCC, left neck, 12/24/2009 ICD-10 update of inactive term HTN, goal below 130/80 09/29/2010 Dyslipidemia, goal LDL below 100 09/29/2010 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 Pernicious anemia Hypothyroidism GERD (gastroesophageal reflux disease) documented as of this encounter (statuses as of 07/05/2024) Resolved Problems Problem Noted Date Diagnosed Date [...] as of this encounter (statuses as of 07/05/2024) Immunizations Name Administration Dates Next Due COVID-19 mRNA, LNP-s, No Pre serve, 2-Dose Series (Rad[employer]ics) 03/15/2021,07/15/2020,06/17/2020 Pneumococcal Conjugate Vacc, 13 Valent (Prevnar) [...] 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 Not on file Not on file Not on file documented as of this encounter Plan of Treatment Upcoming Encounters Date Type Department Care Team (Late st Contact Info) Description 08/02/2024 11:30 AM EDT [facility] [address] [facility] [place] [phone] [facility] [address] [facility] [place] [address] 08/12/2024 9:50 AM EDT Laboratory [facility] [address] [place] [phone] [facility] [address] [facility] [place] [address] [address] 08/13/2024 9:30 AM EDT Pharmacy Pharmacy, [address] [address] [place] [address] [place] [address] 12/27/2024 2:20 PM EDT Office Visit [facility] [address] [place] [address] Milton Balderas MD [address] [place] [address] 01/30/2025 10:00 AM EDT Office Visit [facility] [address] [place] [phone] Lucila Flanagan CRNP [address] [place] [address] 07/29/2025 1:40 PM EDT Office Visit [facility] [address] [place] [address] Milton Balderas MD [address] [place] [address] Health Maintenance Due Date Last Done Comments [...] Procedure Name Priority Date/Time Associated Diagnosis Comments RADIOLOGY SCANNED RESULT 07/04/2024 documented in this encounter Results * RADIOLOGY SCANNED RESULT (07/04/2024) 07/04/2024 us No Physician Data Unknown DIAGNOSTIC RADIOLOGY S ERVICES Final Result documented in this encounter Care Teams Lineman Apprentice Relationship Specialty Start Date End Date Milton Balderas MD [address] [place] [address] PCP - General Family Medicine 10/13/20 documented as of this encounter
--- OUTSIDE RECORDS SUMMARY | 2024-08-19 10:35 | External Medical Summary ---
Author Name Unknown Address Unknown Organization K01[facility] [place] [address] [place] [address] Laboratory Report Ordering Provider Test Date Status STU LANDERS 07/01/2024 10:36:17 Final Observation Date Value Abnormality Reference (Units ) Status Retic, % (auto) 07/01/2024 10:36:17 1.64 0.80-1.90 (%) Final Reticulocytes, Absolute 07/01/2024 10:36:17 60.5 31.3-100.1 (K/uL) Final Reticulocyte fraction, immature 07/01/2024 10:36:17 11.6 2.5-20.6 (%) Final Reticulocyte HGB 07/01/2024 10:36:17 33.7 29.7-37.4 (pg) Final Performing Location [facility] [place] [address] [place] [address]
--- OUTSIDE RECORDS SUMMARY | 2024-08-19 10:35 | External Medical Summary | Summary of Care ---
Author Name Unknown Organization [facility] Address [address] [place] [address] Phone [phone] Care Team Providers Care Blueprint Processor Name Role Phone Milton Balderas MD Primary Care Provider + Reason for Visit * Reason Onset Date Comments Hospital Follow-Up [facility] 06/20-06/08 4:NSTEMI Hospital Follow-Up 06/27/2024 Encounter Details Date Type Department Care Team (Late st Contact Info) Description 06/27/2024 10:40 AM EST Office Visit Family Practice [facility] [address] [address] Milton Balderas MD [address] [place] [address] Hospital discharge follow-up*; 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 behavioral disturbance, psychotic disturbance, mood disturbance, or anxiety, unspecified timing of dementia onset ([facility]); Type 2 diabetes mellitus with stage 3b chronic kidney disease, without long-term current use of insulin ([facility]); HTN, goal below 130/80; Acquired hypothyroidism; NSTEMI (non-ST elevated myocardial infarction) ([facility]); B12 deficiency; Type 2 diabetes mellitus with hemoglobin A1c goal of less than 8.0% ([facility]); Vitamin D deficiency Allergies Active Allergy Reactions Criticality Noted Date Comments Neville Inhibitors Cough 09/29/2010 Lisinopril causes cough Ciprofloxacin Rash Medium 05/03/2014 Rash with first IV dose in hospital Metformin Diarrhea 09/29/2010 documented as of this encounter (statuses as of 06/27/2024) Medications ASPIRIN 81 MG PO TABSIndications:ta kes [...] CPAP every night at bedtime. Active Procrit 79408 UNIT/ML Injection SolutionIndication s:Anemia of chronic renal [...] 30 Each 3 05/03/20 24 Active Nyamyc 962465 UNIT/GM External Powder (Nystatin)Indicati ons:Tinea corporis APPLY TOPICALLY TO AFFECTED AREA THREE TIMES A DAY APPLY UNDER BREASTS AND BELLY 60 g 05/06/20 24 Active Atorvastatin Calcium 20 MG Oral Tablet (Lipitor) Take 1 Tablet by mouth in the morning. 90 Tablet 3 06/27/19 25 Active Atorvastatin Calcium 20 MG Oral Tablet (Lipitor) Take 1 Tablet by mouth in the morning. 025 Discontin ued(Refil l) documented as of this encounter (statuses as of 06/27/2024) Active Problems Problem Noted Date Diagnosed Date [...] on barium swallow, 01/25/[address] [facility] on CPAP 11/10/2010 Overview (02/06/2017): Sleep study on 12/24/2009, [facility], Cpap 8, flex setting 3 AHP ICD-10 update of inactive term History of basal cell cancer 11/10/2010 Overview (08/11/2015): BCC, left neck, 12/24/2009 ICD-10 update of inactive term HTN, goal below 130/80 09/29/2010 Dyslipidemia, goal LDL below 100 09/29/2010 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 Pernicious anemia Hypothyroidism GERD (gastroesophageal reflux disease) documented as of this encounter (statuses as of 06/27/2024) Resolved Problems Problem Noted Date Diagnosed Date [...] as of this encounter (statuses as of 06/27/2024) Immunizations Name Administration Dates Next Due COVID-19 mRNA, LNP-s, No Pre serve, 2-Dose Series ([employer]) 03/15/2021,07/15/2020,06/17/2020 Pneumococcal Conjugate Vacc, 13 Valent (Prevnar) [...] 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 Chief Complaint Patient presents with Hospital Follow-Up [facility] 06/20-06/21:NSTEMI Hospital Follow-Up Recent Admission: Patient was recently admitted to [facility] 06/20/24 . The date of discharge was 06/21/24. Discharge reportreceived and reviewed. HPI: History of Present Illness The patient, with a history of NSTEMI, presents for a follow-up visit after hospitalization. She was admitted due to abdominal pain and lower left chest pain. During the hospital stay, she had elevated troponin levels and ST depression in lateral leads on EKG. An echocardiogram did not show any wall motion abnormalities and troponin levels downtrended. The patient was started on atorvastatin 20mgdaily for cholesterol management. Since discharge, the patient reports feeling weak but denies any recurrent chest pain. The patient also reports experiencing stress due to a family dispute. No fever, chills, chest pain, shortness of breath, headache, nausea, vomit, diarrhea, constipation or vision changes Patient Active Problem List Diagnosis Pernicious anemia [...] (HCC) Memory loss UTI symptoms Acute confusion 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 behavioral disturbance, psychotic disturbance, mood disturbance, or anxiety (HCC) Type 2 diabetes mellitus with stage 3b chronic kidney disease, without long-term current use of insulin (HCC) Current Outpatient Medications Medication Sig Dispense Refill [...] CUT, CRUSH OR CHEW) 90 Tablet 3 Boost Oral Liquid Take by mouth daily. Vitamin D3 25 MCG (1000 UT) Oral Tablet (Vitamin D3) Take 1 Tablet by mouth in the morning. CPAP every night at bedtime. Procrit 95013 UNIT/ML Injection Solution Inject 10,000 units subcutaneous [...] taking: Reported on 02/29/2024) 42.5 g 3 Ferrous Sulfate 325 (65 Fe) MG Oral Tablet (Feosol) Take 1 Tablet by mouth daily. 90 Tablet 1 Ondansetron 4 MG Oral Tablet Disintegrating (Zofran) Place 1 Tablet on tongue every 8 hours as needed for Nausea. dissolve on tongue. (Patient not taking: Reported on 03/09/2024) 30 Tablet 1 Levothyroxine Sodium 75 MCG Oral Tablet (Levoxyl) TAKE 1 TABLET DAILY FIRST THING IN THE MORNING 90Tablet 3 Losartan Potassium 25 MG Oral Tablet (Cozaar) Take 1 Tablet by mouth in the morning. 30 Tablet 2 amLODIPine Besylate 5 MG [...] times a day. Till better 15 g 0 Trulicity 0.75 MG/0.5ML Subcutaneous Solution Auto-injector (Dulaglutide) INJECT 1 PEN WEEKLY 6 mL 1 Veltassa 8.4 GM Oral Packet (Patiromer Sorbitex Calcium) Take 1 Packet by mouth every other day. 30Each 3 Nyamyc 692417 UNIT/GM External Powder (Nystatin) APPLY TOPICALLY TO AFFECTED AREA THREE TIMES A DAYAPPLY UNDER BREASTS AND BELLY 60 g 0 Atorvastatin Calcium 20 MG Oral Tablet (Lipitor) Take 1 Tablet by mouth in the morning. No current facility-administered medications for this visit. Current and discharge medications have been reconciled. Review of patient's allergies indicates: Allergen Reactions Ciprofloxacin Rash Rash with first IV dose in hospital Neville Inhibitors Cough Lisinopril causes cough Metformin Diarrhea OBJECTIVE: BP 171/86 | Pulse 83 | Resp 16 | SpO2 97% Review Of Systems: Neg except above PHYSICAL EXAM: Physical: BP 171/86 | Pulse 83 | Resp 16 | SpO2 97% General-No apparent Distress Head, Eyes, Ears, Nose, Throat--Normocephalic, atraumatic Neck-Supple Lymph-no lymphadenopathy Lungs-Clear to Auscultation bilaterally Cardiovascular--Regular rate & Rhythm, +s1, s2, no murmurs Abdomen-soft, nontender, nondistended + bowel sounds Extremities--no edema Neuro-alert & oriented ASSESSMENT: Hospital discharge follow-up (Primary) - DISCH MED RECON CUR MED LIS 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 behavioral disturbance, psychotic disturbance, mood disturbance, or anxiety, unspecified timing of dementia onset (HCC) Type 2 diabetes mellitus with stage 3b chronic kidney disease, without long-term current use of insulin ([facility]) HTN, goal below 130/80 Acquired hypothyroidism NSTEMI (non-ST elevated myocardial infarction) ([facility]) PLAN: Cont current Rx, BP ok in hosp, will monitor Cont added Atorvastatin 20mg Follow up 6mo. I spent a total of 30-39 minutes (exact time 35 mins) minutes on the date of service in preparation, delivery, and documentation of the care provided to Ekta Francisco excluding any time spent in performance of separately billed services. Milton Balderas MD documented in this encounter Nursing Notes * Emily Leos LPN - 06/27/2024 10:52 AM EST The patient has been properly identified by confirmation of name and date of . Chief Complaint Patient presents with Hospital Follow-Up [facility] 06/20-06/21:NSTEMI documented in this encounter Plan of Treatment Upcoming Encounters Date Type Department Care Team (Late st Contact Info) Description 07/01/2024 8:50 AM EST Laboratory Laboratory, Elisabeth [address] [facility] [address] [place] [phone] Elisabeth [facility] [address] [facility] [place] [address] 07/02/2024 9:30 AM EST Pharmacy Pharmacy, [address] [address] 08/02/2024 11:30 AM EDT [facility] [address] [place] [phone] Elisabeth [phone] [place] [address] 12/27/2024 2:20 PM EDT Office Visit Family Practice [facility] [address] [address] Milotn Balderas MD [address] [address] 01/30/2025 10:00 AM EDT Office Visit Sleep Disorders Ctr [facility] [address] [phone] Lucila Flanagan CRNP [address] [place] [place] [address] 07/29/2025 1:40 PM EDT Office Visit [facility] [address] [place] [place] [address] Milton Balderas MD [address] [place] [address] Scheduled Orders Name Type Priority Associated Diagnoses Orde r Schedule HEMOGLOBIN A1C Lab Routine Type 2 diabetes mellitus with stage 3b chronic kidney disease, without long-term current use of insulin (HCC) Expected: 06/27/2024 (Approximate), Expires: 06/27/2025 ALBUMIN / CREATININE RATIO, URINE Lab Routine Type 2 diabetes mellitus with stage 3b chronic kidney disease, without long-term current use of insulin (HCC) Expected: 06/27/2024 (Approximate), Expires: 06/27/2025 BASIC METABOLIC PANEL Lab Routine Type 2 diabetes mellitus with stage 3b chronic kidney disease, without long-term current use of insulin (HCC) Expected: 06/27/2024 (Approximate), Expires: 06/27/2025 LIPID PANEL WITH DIRECT LDL IF TG IS HIGH Lab Routine Type 2 diabetes mellitus with stage 3b chronic kidney disease, without long-term current use of insulin (HCC) Expected: 06/27/2024 (Approximate), Expires: 06/27/2025 TSH WITH FREE T4 IF INDICATED Lab Routine Acquired hypothyroidism Expected: 06/27/2024 (Approximate), Expires: 06/27/2025 VITAMIN B12 Lab Routine B12 deficiency Expected: 06/27/2024 (Approximate), Expires: 06/27/2025 25-HYDROXY VITAMIN D Lab Routine Vitamin D deficiency Expected: 12/24/2024 (Approximate), Expires: 06/27/2025 Health Maintenance Due Date Last Done Comments [...] (Done elsewhere), 12/23/2020, Additional history exists TSH 05/20/2025 05/20/2024, 1206/2023, 02/26/2024, Additional history exists DTap/Tdap Vaccines (3 - [...] as of this encounter Visit Diagnoses Diagnosis Hospital discharge follow-up- Primary Other follow-up examination 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 behavioral disturbance, psychotic disturbance, mood disturbance, or anxiety, unspecified timing of dementia onset (HCC) Type 2 diabetes mellitus with stage 3b chronic kidney disease, without long-term current use of insulin (HCC) HTN, goal below 130/80 Unspecified essential hypertension Acquired hypothyroidism Unspecified hypothyroidism NSTEMI (non-ST elevated myocardial infarction) (HCC) Acute myocardial infarction, subendocardial infarction, episode of care unspecified B12 deficiency Other B-complex deficiencies Type 2 diabetes mellitus with hemoglobin A1c goal of less than 8.0% (HCC) Vitamin D deficiency Unspecified vitamin D deficiency documented in this encounter Care Teams Blueprint Processor Relationship Specialty Start Date End Date Milton Balderas MD [address] [address] PCP - General Family Medicine 10/13/20 documented as of this encounter
--- OUTSIDE RECORDS SUMMARY | 2024-08-19 10:35 | External Medical Summary ---
Author Name Unknown Address Unknown Organization [id number]:[place] [place] [facility] [address] [address] [place] [address] Laboratory Report Ordering Provider Test Date Status ANNAMARIE ROMANO 07/01/2024 10:36:17 Final Observation Date Value Abnormality Reference (Units ) Status BUN 07/01/2024 10:36:17 30 Above high normal 6-20 (mg/dL) Final Creatinine 07/01/2024 10:36:17 1.7 Above high normal 0.5-1.0 (mg/dL) Final Glomerular filtration rate/1.73 sq M.predicted [Volume Rate/Area] in Serum, Plasma or Blood by Creatinine-based formula (CKD-EPI) 07/01/2024 10:36:17 29 Below low normal >=60 (mL/min) Final eGFR is calculated based on the CKD-EPI 2020 equation. Sodium 07/01/2024 10:36:17 139 135-146 (m mol/L) Final Potassium 07/01/2024 10:36:17 4.2 3.5-5.1 (m mol/L) Final Cl 07/01/2024 10:36:17 101 98-107 (mm ol/L) Final CO2 07/01/2024 10:36:17 25 22-32 (mmo l/L) Final Anion gap 07/01/2024 10:36:17 13 7-15 (mmol /L) Final Glucose 07/01/2024 10:36:17 266 Above high normal 70 -120 (mg/dL) Final Calcium 07/01/2024 10:36:17 9.6 8.4-10.2 ( mg/dL) Final Performing Location [facility] [place] [address] [place] [address]
--- OUTSIDE RECORDS SUMMARY | 2024-08-19 10:35 | External Medical Summary ---
Author Name Unknown Address Unknown Organization [id number]:[facility] [place] [address] [facility] [address] Laboratory Report Ordering Provider Test Date Status STU LANDERS 07/01/2024 10:36:17 Final Observation Date Value Abnormality Reference (Units ) Status WBC, Total 07/01/2024 10:36:17 8.02 4.00-10.8 0 (K/uL) Final RBC 07/01/2024 10:36:17 3.74 3.85-5.15 (M/uL) Final Hemoglobin 07/01/2024 10:36:17 11.0 Below low normal 12 .0-15.3 (g/dL) Final Anemia reflex testing trigge rs on a HGB < 12.0 for Females and HGB < 13.0 for Males in accordance with the WHO Anemia Guidelines
Anemia reflex testing triggers on a HGB < 12.0 for Females and HGB < 13.0 for Males in accordance with the WHO Anemia Guidelines HCT 07/01/2024 10:36:17 34.9 Below low normal 36. 0-45.2 (%) Final MCV 07/01/2024 10:36:17 93.3 81.5-97.5 (fL) Final MCH 07/01/2024 10:36:17 29.4 27.0-34.0 (pg) Final MCHC 07/01/2024 10:36:17 31.5 32.0-36.0 (g/dL) Final RDW 07/01/2024 10:36:17 12.1 11.5-15.5 (%) Final Platelets 07/01/2024 10:36:17 206 140-400 (K /uL) Final MPV 07/01/2024 10:36:17 11.4 6.6-11.1 ( fL) Final Nucleated erythrocytes/100 leukocytes [Ratio] in Blood by Automated count 07/01/2024 10:36:17 0 <=0 (/100 WBCs) Final Performing Location [facility] [place] [facility] [address] [facility] [address]
--- OUTSIDE RECORDS SUMMARY | 2024-08-19 10:35 | External Medical Summary ---
Author Name Unknown Address Unknown Organization K01:LABORATORY [facility] - [address] [place] [address] Laboratory Report Ordering Provider Test Date Status ANNAMARIE ROMANO 07/01/2024 10:36:17 Final Observation Date Value Abnormality Reference (Units ) Status T4, Free 07/01/2024 10:36:17 1.2 0.9-1.7 (n g/dL) Final Performing Location LABORATORY [facility] - [address] [place] [address]
--- OUTSIDE RECORDS SUMMARY | 2024-08-19 10:35 | External Medical Summary | Summary of Care ---
Author Name Unknown Organization [facility] Address [address] [place] [address] Phone [phone] Care Team Providers Care Door Worker Name Role Phone Milton Balderas MD Primary Care Provider + Reason for Visit * Reason Onset Date Comments Hospital Follow-Up [facility] 06/20-06/08 4:NSTEMI Hospital Follow-Up 06/27/2024 Encounter Details Date Type Department Care Team (Late st Contact Info) Description 06/27/2024 10:40 AM EST Office Visit Family Practice [facility] [address] [address] Milton Balderas MD [address] [place] [address] Hospital discharge follow-up*; 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 behavioral disturbance, psychotic disturbance, mood disturbance, or anxiety, unspecified timing of dementia onset ([facility]); Type 2 diabetes mellitus with stage 3b chronic kidney disease, without long-term current use of insulin ([facility]); HTN, goal below 130/80; Acquired hypothyroidism; NSTEMI (non-ST elevated myocardial infarction) ([facility]); B12 deficiency; Type 2 diabetes mellitus with hemoglobin A1c goal of less than 8.0% ([facility]); Vitamin D deficiency Allergies Active Allergy Reactions Criticality Noted Date Comments Neville Inhibitors Cough 09/29/2010 Lisinopril causes cough Ciprofloxacin Rash Medium 05/03/2014 Rash with first IV dose in hospital Metformin Diarrhea 09/29/2010 documented as of this encounter (statuses as of 06/28/2024) Medications ASPIRIN 81 MG PO TABSIndications:ta kes [...] CPAP every night at bedtime. Active Procrit 15039 UNIT/ML Injection SolutionIndication s:Anemia of chronic renal [...] 30 Each 3 05/03/20 24 Active Nyamyc [id number] UNIT/GM External Powder (Nystatin)Indicati ons:Tinea corporis APPLY [...] as of this encounter (statuses as of 06/28/2024) Active Problems Problem Noted Date Diagnosed Date [...] (11/10/2010): Found on barium swallow, 01/25/2010 at [facility] on CPAP 11/10/2010 Overview (02/06/2017): Sleep study on 12/24/2009, [facility], Cpap 8, flex setting 3 AHP ICD-10 update of inactive term History of basal cell cancer 11/10/2010 Overview (08/11/2015): BCC, left neck, 12/24/2009 ICD-10 update of inactive term HTN, goal below 130/80 09/29/2010 Dyslipidemia, goal LDL below 100 09/29/2010 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 Pernicious anemia Hypothyroidism GERD (gastroesophageal reflux disease) documented as of this encounter (statuses as of 06/28/2024) Resolved Problems Problem Noted Date Diagnosed Date [...] as of this encounter (statuses as of 06/28/2024) Immunizations Name Administration Dates Next Due COVID-19 mRNA, LNP-s, No Pre serve, 2-Dose Series ([employer]) 03/15/2021,07/15/2020,06/17/2020 Pneumococcal Conjugate Vacc, 13 Valent (Prevnar) [...] 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 The date of discharge [...] morning. CPAP every night at bedtime. Procrit 66317 UNIT/ML Injection Solution Inject 10,000 units subcutaneous [...] mouth every other day. 30Each 3 Nyamyc 741474 UNIT/GM External Powder (Nystatin) APPLY TOPICALLY TO [...] disease, without long-term current use of insulin ([facility]) HTN, goal below 130/80 Acquired hypothyroidism NSTEMI (non-ST elevated myocardial infarction) ([facility]) PLAN: Cont current Rx, BP ok in [...] Chief Complaint Patient presents with Hospital Follow-Up [facility] 06/20-06/21:NSTEMI documented in this encounter Plan of Treatment Upcoming Encounters Date Type Department Care Team (Late st Contact Info) Description 07/01/2024 8:50 AM EST Laboratory Laboratory, Elisabeth [address] [facility] [address] [place] [phone] Elisabeth [facility] [address] [facility] [place] [address] 07/02/2024 9:30 AM EST Pharmacy Pharmacy, [address] [address] 08/02/2024 11:30 AM EDT [facility] [address] [facility] [place] [phone] Elisabeth [phone] [place] [address] 12/27/2024 2:20 PM EDT Office Visit Family Practice [facility] [address] [address] Milton Balderas MD [address] [address] 01/30/2025 10:00 AM EDT Office Visit Sleep Disorders Ctr [facility] [address] [phone] Lucila Flanagan CRNP [address] [place] [address] 07/29/2025 1:40 PM EDT Office Visit [facility] [address] [place] [address] Milton Balderas MD [address] [place] [address] Scheduled Orders Name Type Priority Associated Diagnoses [...] 12/03/2024 024, 08/31/2023, 07/26/2023, Additional history exists HbA1c 12/18/2024 06/20/2024 (Done elsewhere), 12/04/2023, 04/27/2023, Additional history exists Diabetic Eye Exam 12/27/2024 12/28/2023, (Done elsewhere), 12/23/2020, Additional history exists TSH 05/20/2025 05/20/2024, 06/2023, 02/26/2024, Additional history exists DTap/Tdap Vaccines (3 [...] deficiency documented in this encounter Care Teams Door Worker Relationship Specialty Start Date End Date Milton Balderas MD [address] [address] PCP - General Family Medicine 10/13/20 documented as of this encounter
--- OUTSIDE RECORDS SUMMARY | 2024-08-19 10:35 | External Medical Summary ---
Author Name Unknown Address Unknown Organization [id number]:[facility] [place] [address] [place] [address] Laboratory Report Ordering Provider Test Date Status STU LANDERS 07/01/2024 10:36:17 Final Observation Date Value Abnormality Reference (Units ) Status Iron 07/01/2024 10:36:17 178 Above high normal 33-151 (ug/dL) Final Iron-binding capacity 07/01/2024 10:36:17 336 250-425 (ug/dL) Final Transferrin Sat % 07/01/2024 10:36:17 53 15-55 (%) Final Performing Location [facility] [place] [address] [place] [address]
--- OUTSIDE RECORDS SUMMARY | 2024-08-19 10:35 | External Medical Summary ---
Author Name Unknown Address Unknown Organization [id number]:[place] [facility] [place] [address] [facility] [address] Laboratory Report Ordering Provider Test Date Status RIK ROMANOPREET 07/01/2024 10:36:17 Final Observation Date Value Abnormality Reference (Units ) Status HbA1C 07/01/2024 10:36:17 6.5 Above high normal 4. 0-5.6 (%) Final The use of HbA1c to monitor glycemic status is based on normal hemoglobin and HbA composition. This test should not be used in patients with abnormal hemoglobin that affects the half life of the red blood cell or the in vivo glycation rates. Glucose, estimated average 07/01/2024 10:36:17 140 Above high normal <126 (mg/dL) Harjinder be Performing Location [facility] [place] [address] [facility] [address] [facility] [place] [address]
--- OUTSIDE RECORDS SUMMARY | 2024-08-19 10:35 | External Medical Summary ---
Author Name Unknown Address Unknown Organization K01:LABORATORY [facility] [place] - [address] [place] [address] Laboratory Report Ordering Provider Test Date Status ANNAMARIE ROMANO 07/01/2024 10:36:17 Final Deficient: <20 ng/mL
Ins ufficient: 20-29 ng/mL
Recommended/Optimum:30-50 ng/mL

Vitamin D intoxication is rare. If suspicious of Vitamin D toxicity, evaluation of serum Calcium and PTH is recommended. Observation Date Value Abnormality Reference (Units ) Status 25-OH Vitamin D total 07/01/2024 10:36:17 24 >19 (ng/mL) Final Performing Location LABORATORY [facility] [place] - [address] [place] [address]
--- OUTSIDE RECORDS SUMMARY | 2024-08-19 10:35 | External Medical Summary ---
Author Name Unknown Address Unknown Organization K01:LABORATORY [facility] [place] - [address] [facility] [address] Laboratory Report Ordering Provider Test Date Status ANNAMARIE ROMANO 07/01/2024 10:36:17 Final Observation Date Value Abnormality Reference (Units ) Status Triglyceride 07/01/2024 10:36:17 150 <=174 ( mg/dL) Final Triglyceride Reference Range s (mg/dL):
<150 Acceptable
150-174 Borderline high
175-499 High
>=500 Very high Cholesterol 07/01/2024 10:36:17 137 <200 (mg /dL) Final Total Cholesterol Reference Ranges (mg/dL):
<200 Desirable
200-239 Borderline high
>=240 High HDL 07/01/2024 10:36:17 61 >49 (mg/dL ) Final HDL Cholesterol Reference Ra nges (mg/dL):
>=60 High (Desirable)
<50 Low (Undesirable) For Females
<40 Low (Undesirable) For Males NON-HDL CHOLESTEROL 07/01/2024 10:36:17 76 <=159 (mg/dL) Final Non-HDL Cholesterol Referenc e Range (mg/dL):
<100 Target level for high risk ASCVD patient
<130 Optimal for general population
130-159 Near optimal for general population
160-189 Borderline High
190-219 High
>=220 Very High LDL, (calculated) 07/01/2024 10:36:17 46 <= 129 (mg/dL) Final LDL Cholesterol Reference Ra nges (mg/dL):
<70 Target level for high risk ASCVD patient
<100 Optimal for general population
100-129 Near optimal for general population
130-159 Borderline high
160-189 High
>=190 Very high Performing Location LABORATORY [facility] [place] - [address] [facility] [address]
--- OUTSIDE RECORDS SUMMARY | 2024-08-19 10:35 | External Medical Summary ---
Author Name Unknown Address Unknown Organization K01:[place] [facility] [place] [address] [facility] [place] [address] Laboratory Report Ordering Provider Test Date Status STU LANDERS 07/01/2024 10:36:17 Final Observation Date Value Abnormality Reference (Units ) Status SYNC LEUKOCYTES IN BLOOD BY AUTOMATED COUNT 07/01/2024 10:36:17 8.02 4.00-10.80 (K/uL) Final Segs 07/01/2024 10:36:17 62.8 40.0-75.0 (%) Final Lymphs % 07/01/2024 10:36:17 25.6 18.0-42.0 (%) Final Monos 07/01/2024 10:36:17 6.5 1.0-11.0 (%) Final Eosinophils 07/01/2024 10:36:17 3.9 0.0-6.0 (%) Final Basos 07/01/2024 10:36:17 1.0 0.0-2.0 (%) Final Immature Granulocyte, Percent 07/01/2024 10:36:17 0.2 0.0-2.0 (%) Final Absolute Segs 07/01/2024 10:36:17 5.04 1.80-7.70 (K/uL) Final Lymphs, absolute 07/01/2024 10:36:17 2.05 1.00-4.80 (K/ul) Final Monos, Abs 07/01/2024 10:36:17 0.52 0.00-1.10 (K/uL) Final Eos, Abs 07/01/2024 10:36:17 0.31 0.00-0.70 (K/uL) Final Basos, Abs 07/01/2024 10:36:17 0.08 0.00-0.20 (K/uL) Final Immature Granulocytes, Number 07/01/2024 10:36:17 0.02 0.00-0.20 (K/uL) Final Performing Location [place] [place] [facility] [place] [address] [facility] [address]
--- OUTSIDE RECORDS SUMMARY | 2024-08-19 10:35 | External Medical Summary ---
Author Name Unknown Address Unknown Organization K01:[place] [facility] [place] [address] [place] [address] Laboratory Report Ordering Provider Test Date Status ROSALINARIKPREET 07/01/2024 10:36:17 Final Observation Date Value Abnormality Reference (Units ) Status TSH 07/01/2024 10:36:17 5.19 Above high normal 0. 27-4.20 (uIU/mL) Final Performing Location LABORATORY C - [address] [place] [address]
--- OUTSIDE RECORDS SUMMARY | 2024-08-19 10:35 | External Medical Summary ---
Author Name Unknown Address Unknown Organization K01:[place]ORY [facility] [place] [address] [place] [address] Laboratory Report Ordering Provider Test Date Status STU LANDERS 07/01/2024 10:36:17 Final Observation Date Value Abnormality Reference (Units ) Status Folic Acid 07/01/2024 10:36:17 14.0 >4.5 (ng/ mL) Final Performing Location LAB[facility]ATORY [facility] - [address] [place] [address]
--- OUTSIDE RECORDS SUMMARY | 2024-08-19 10:35 | External Medical Summary | Summary of Care ---
Author Name Unknown Organization [facility] Address [address] [place] [address] Phone [phone] Care Team Providers Care [place] Name Role Phone Milton Balderas MD Primary Care Provider + Reason for Visit * Reason Comments Outpatient Testing Encounter Details Date Type Department Care Team (Late st Contact Info) Description 07/01/2024 8:50 AM EST Laboratory Laboratory, [facility] [address] [place] [address] [place], Laboratory [address] [place] [address] Anemia of chronic renal failure, stage 4 (severe) ([facility]); Type 2 diabetes mellitus with stage 3b chronic kidney disease, without long-term current use of insulin ([facility]); Acquired hypothyroidism; B12 deficiency; Vitamin D deficiency Allergies Active Allergy Reactions [...] CPAP every night at bedtime. Active Procrit 15972 UNIT/ML Injection SolutionIndication s:Anemia of chronic renal [...] day. DX E11.9 200 Strip 1 06/09/19 Active OneTouch Delica Lancets 30G USE TO [...] use twice weekly. 42.5 g 3 10/27/19 Active Additional Information Patient not taking.Reported on [...] 30 Each 3 05/03/20 24 Active Nyamyc 233481 UNIT/GM External Powder (Nystatin)Indicati ons:Tinea corporis APPLY [...] adult exam 07/28/2021 Overview (06/27/2024): 07/[address] [facility] , hx NSTEMI. 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 on file Not on file Not on file documented as of this encounter Plan of Treatment Upcoming Encounters Date Type Department Care Team (Late st Contact Info) Description 07/01/2024 3:00 PM EST Scheduled Telephone Care Coordination and Integration [address] [place] [address] [facility] [employer] [address] [place] [address] 07/02/2024 9:30 AM EST Pharmacy Pharmacy, [place] [address] [place] [address] [address] 08/02/2024 11:30 AM EDT Telemedicine Pharmacy, [address] [place] [phone] [facility] [address] [place] [address] 12/27/2024 2:20 PM EDT Office Visit Family Practice [facility] [address] [address] Milton Balderas MD [address] [address] 01/30/2025 10:00 AM EDT Office Visit Sleep Disorders Ctr [facility] [address] [place] [phone] Lucila Flanagan CRNP [address] [place] [address] 07/29/2025 1:40 PM EDT Office Visit Family Practice [facility] [address] [place] [address] Milton Balderas MD [address] [place] [address] Pending Results Name Type Priority Associated Diagnoses Date /Time CBC WITH WBC DIFFERENTIAL AND ANEMIA REFLEX WORKUP Lab Routine Anemia of chronic renal failure, stage 4 (severe) (HCC) 07/01/2024 10:36 AM EST TSH WITH FREE T4 IF INDICATED Lab Routine Acquired hypothyroidism 07/01/2024 10:36 AM EST VITAMIN B12 Lab Routine B12 deficiency 07/01/2024 10:36 AM EST 25-HYDROXY VITAMIN D Lab Routine Vitamin D deficiency 07/01/2024 10:36 AM EST ANEMIA REFLEX CHEMISTRY HOLD Lab Routine Anemia of chronic renal failure, stage 4 (severe) (HCC) 07/01/2024 10:36 AM EST Health Maintenance Due Date Last Done Comments Adult Wellness Visit 12/25/2021 12/25/2020 COVID-19 Vaccine ( season) 2024 03/15/2021, 07/15/2020, 06/17/2020 Diabetic Foot Exam 05/25/2024 05/25/2023, 0 08/18/2021, 08/27/2020, Additional history exists Depression Screening 08/22/2024 08/23/2023 Diabetic Eye Exam 12/27/2024 12/28/2023, (Done elsewhere), 12/23/2020, Additional history exists HbA1c 12/29/2024 07/01/2024, 06/08 (Done elsewhere), 12/04/2023, Additional history exists TSH 05/20/2025 05/20/2024, 12/0 06/2023, 02/26/2024, Additional history exists Albumin/Creatinine Ratio 07/01/2025 025, [...] Procedure Name Priority Date/Time Associated Diagnosis Comments ANEMIA CBC Routine 07/01/2024 10:36 AM EST Anemia of chronic renal failure, stage 4 (severe) (HCC) DIFFERENTIAL, AUTOMATED Routine 07/01/2024 10:36 AM EST Anemia of chronic renal failure, stage 4 (severe) (HCC) RETICULOCYTE PANEL Routine 07/01/2024 10 :36 AM EST Anemia of chronic renal failure, stage 4 (severe) (HCC) LIPID PANEL WITH DIRECT LDL IF TG IS HIGH Routine 07/01/2024 10:36 AM EST Type 2 diabetes mellitus with stage 3b chronic kidney disease, without long-term current use of insulin (HCC) HEMOGLOBIN A1C Routine 07/01/2024 10:36 AM EST Type 2 diabetes mellitus with stage 3b chronic kidney disease, without long-term current use of insulin (HCC) BASIC METABOLIC PANEL Routine 07/01/2024 10:36 AM EST Type 2 diabetes mellitus with stage 3b chronic kidney disease, without long-term current use of insulin (HCC) ALBUMIN / CREATININE RATIO, URINE Routine 07/01/2024 10:36 AM EST Type 2 diabetes mellitus with stage 3b chronic kidney disease, without long-term current use of insulin (HCC) LDL CHOLESTEROL (DIRECT MEASURE) Routine 07/01/2024 10:36 AM EST Type 2 diabetes mellitus with stage 3b chronic kidney disease, without long-term current use of insulin (HCC) documented in this encounter Results * LDL CHOLESTEROL (DIRECT MEASURE) (07/01/2024 10:36 AM EST) LDL Cholesterol (Direct Measure) 52 <=129 mg/dL 07/01/2024 2:52 PM EST LAB[facility]ATORY [facility] Comment: LDL Cholesterol Reference Ranges (mg/dL): <70 Target level for high risk ASCVD patient <100 Optimal for general population 100-129 Near optimal for general population 130-159 Borderline high 160-189 High >=190 Very high Blood Venous blood specimen / Unknown Venipuncture / Unknown 07/01/2024 10:36 AM EST 07/01/2024 10:36 AM EST us Milton Balderas MD LAB BLOOD ORDERABLES Fin al Result Performing Organization Address City/State/[facility] Co de Phone Number [place] [address] [place] [address] * RETICULOCYTE PANEL (07/01/2024 10:36 AM EST) Reticulocyte Percent 1.64 0.80 - 1.90 % 07/01/2024 2:34 PM EST [facility] Absolute Reticulocyte 60.5 31.3 - 100.1 K/uL 07/01/2024 2:34 PM EST [facility] Immature Reticuloctye Fraction 11.6 2.5 - 20.6 % 07/01/2024 2:34 PM EST [facility] Reticulocyte Hemoglobin 33.7 29.7 - 37.4 pg 07/01/2024 2:34 PM EST [facility] Blood Venous blood specimen / Unknown Venipuncture / Unknown 07/01/2024 10:36 AM EST 07/01/2024 10:36 AM EST Capo Linodeandre [facility] LAB BLOOD ORDERABLES Final Result LAB[facility] [address] [place] [address] * DIFFERENTIAL, AUTOMATED (07/01/2024 10:36 AM EST) WBC 8.02 4.00 - 10.80 K/uL 07/01/2024 2:24 PM EST [facility] Neutrophils % 62.8 40.0 - 75.0 % 07/01/2024 2:24 PM EST [facility] Lymphocytes % 25.6 18.0 - 42.0 % 07/01/2024 2:24 PM EST [facility] Monocytes % 6.5 1.0 - 11.0 % 07/01/2024 2:24 PM EST [facility] Eosinophils % 3.9 0.0 - 6.0 % 07/01/2024 2:24 PM EST [facility] Basophils % 1.0 0.0 - 2.0 % 07/01/2024 2:24 PM EST [facility] Immature Granulocytes % 0.2 0.0 - 2.0 % 07/01/2024 2:24 PM EST [facility] Absolute Neutrophils 5.04 1.80 - 7.70 K/uL 07/01/2024 2:24 PM EST [facility] Absolute Lymphocytes 2.05 1.00 - 4.80 K/ul 07/01/2024 2:24 PM EST [facility] Absolute Monocytes 0.52 0.00 - 1.10 K/uL 07/01/2024 2:24 PM EST [facility] Absolute Eosinophils 0.31 0.00 - 0.70 K/uL 07/01/2024 2:24 PM EST [facility] Absolute Basophils 0.08 0.00 - 0.20 K/uL 07/01/2024 2:24 PM EST [facility] Absolute Immature Granulocytes 0.02 0.00 - 0.20 K/uL 07/01/2024 2:24 PM EST [facility] Blood Venous blood specimen / Unknown Venipuncture / Unknown 07/01/2024 10:36 AM EST 07/01/2024 10:36 AM EST Capo Alberto Kamila [facility] LAB BLOOD ORDERABLES Final Result [facility] [address] [place] [address] * (ABNORMAL) ANEMIA CBC (07/01/2024 10:36 AM EST) WBC 8.02 4.00 - 10.80 K/uL 07/01/2024 2:24 PM EST [facility] RBC 3.74 3.85 - 5.15 M/uL 07/01/2024 2:24 PM EST [facility] HGB 11.0(L) 12.0 - 15.3 g/dL 07/01/2024 2:24 PM EST [facility] Comment: Anemia reflex testing triggers on a HGB < 12.0 for Females and HGB < 13.0 for Males in accordance with the WHO Anemia Guidelines Anemia reflex testing triggers on a HGB < 12.0 for Females and HGB < 13.0 for Males in accordance with the WHO Anemia Guidelines HCT 34.9(L) 36.0 - 45.2 % 07/01/2024 2:24 PM EST [facility] MCV 93.3 81.5 - 97.5 fL 07/01/2024 2:24 PM EST [facility] MCH 29.4 27.0 - 34.0 pg 07/01/2024 2:24 PM EST [facility] MCHC 31.5 32.0 - 36.0 g/dL 07/01/2024 2:24 PM EST [facility] RDW 12.1 11.5 - 15.5 % 07/01/2024 2:24 PM EST [facility] PLT 206 140 - 400 K/uL 07/01/2024 2:24 PM EST [facility] MPV 11.4 6.6 - 11.1 fL 07/01/2024 2:24 PM EST [facility] nRBCs 0 <=0 /100 WBCs 07/01/2024 2:24 PM EST [facility] Blood Venous blood specimen / Unknown Venipuncture / Unknown 07/01/2024 10:36 AM EST 07/01/2024 10:36 AM EST Capo Treviño [facility] LAB BLOOD ORDERABLES Final Result [facility]ATORY [facility] [address] [place] [id number] * LIPID PANEL WITH DIRECT LDL IF TG IS HIGH (07/01/2024 10:36 AM EST) Triglycerides 150 <=174 mg/dL 07/01/2024 2:32 PM EST LAB[facility]ATORY [facility] Comment: Triglyceride Reference Ranges (mg/dL): <150 Acceptable 150-174 Borderline high 175-499 High >=500 Very high Cholesterol 137 <200 mg/dL 07/01/2024 2:32 PM EST LAB[facility] Comment: Total Cholesterol Reference Ranges (mg/dL): <200 Desirable 200-239 Borderline high >=240 High HDL Cholesterol 61 >49 mg/dL 2:32 PM EST LAB[facility] Comment: HDL Cholesterol Reference Ranges (mg/dL): >=60 High (Desirable) <50 Low (Undesirable) For Females <40 Low (Undesirable) For Males Non-HDL Cholesterol 76 <=159 mg/dL 07/01/2024 2:32 PM EST LAB[facility] Comment: Non-HDL Cholesterol Reference Range (mg/dL): <100 Target level for high risk ASCVD patient <130 Optimal for general population 130-159 Near optimal for general population 160-189 Borderline High 190-219 High >=220 Very High LDL Cholesterol 46 <=129 mg/dL 07/01/2024 2:32 PM EST LAB[facility] Comment: LDL Cholesterol Reference Ranges (mg/dL): <70 Target level for high risk ASCVD patient <100 Optimal for general population 100-129 Near optimal for general population 130-159 Borderline high 160-189 High >=190 Very high Blood Venous blood specimen / Unknown Venipuncture / Unknown 07/01/2024 10:36 AM EST 07/01/2024 10:36 AM EST Milton Balderas MD LAB BLOOD ORDERABLES Fin al Result [facility] [place] [address] [place] [address] * (ABNORMAL) BASIC METABOLIC PANEL (07/01/2024 10:36 AM EST) BUN 30(H) 6 - 20 mg/dL 07/01/2024 2:32 PM EST [facility] CREATININE 1.7(H) 0.5 - 1.0 mg/dL 07/01/2024 2:32 PM EST [facility] EGFR 29(L) >=60 mL/min 07/01/2024 2:32 PM EST [facility] Comment:eGFR is calculated b ased on the CKD-EPI 2020 equation. SODIUM 139 135 - 146 mmol/L 07/01/2024 2:32 PM EST [facility] POTASSIUM 4.2 3.5 - 5.1 mmol/L 07/01/2024 2:32 PM EST [facility] CHLORIDE 101 98 - 107 mmol/L 07/01/2024 2:32 PM EST [facility] CO2 25 22 - 32 mmol/L 07/01/2024 2:32 PM EST [facility] ANION GAP 13 7 - 15 mmol/L 07/01/2024 2:32 PM EST [facility] GLUCOSE 266(H) 70 - 120 mg/dL 07/01/2024 2:32 PM EST [facility] CALCIUM 9.6 8.4 - 10.2 mg/dL 07/01/2024 2:32 PM EST [facility] Blood Venous blood specimen / Unknown Venipuncture / Unknown 07/01/2024 10:36 AM EST 07/01/2024 10:36 AM EST Milton Balderas MD LAB BLOOD ORDERABLES Fin al Result [facility] [address] [place], [place] [id number] * (ABNORMAL) ALBUMIN / CREATININE RATIO, URINE (07/01/2024 10:36 AM EST) Albumin, Random Urine 169.00 mg/dL 07/01/2024 2:46 PM EST LAB[facility] Creatinine, Random Urine 217 mg/dL 07/01/2024 2:46 PM EST [facility] Albumin / Creatinine Ratio, Urine 779(H) <30 mg/g Creat 07/01/2024 2:46 PM EST [facility] Urine Urine specimen obtained by clean catch procedure / Unknown Non-blood Collection / Unknown 07/01/2024 10:36 AM EST 07/01/2024 10:36 AM EST Narrative LAB[facility] - 07/01/2024 2:46 PM EST Normal: <30 mg/g creatinine High: 30-300 mg/g creatinine Very High: >300 mg/g creatinine Nephrotic: >2200 mg/g creatinine Milton Balderas MD LAB URINE ORDERABLES Fin al Result Performing Organization Address [facility] de Phone Number LABORATORY [address] [address] * (ABNORMAL) HEMOGLOBIN A1C (07/01/2024 10:36 AM EST) Hemoglobin A1C 6.5(H) 4.0 - 5.6 % 07/01/2024 2:31 PM EST [facility] Comment:The use of HbA1c to monitor glycemic status is based on normal hemoglobin and HbA composition. This test should not be used in patients with abnormal hemoglobin that affects the half life of the red blood cell or the in vivo glycation rates. Estimated Average Glucose 140(H) <126 mg/dL 07/01/2024 2:31 PM EST LAB[facility] Blood Venous blood specimen / Unknown Venipuncture / Unknown 07/01/2024 10:36 AM EST 07/01/2024 10:36 AM EST Milton Balderas MD LAB BLOOD ORDERABLES Fin al Result Performing Organization Address City/[facility] Co de Phone Number [facility]ORY [facility] [address] [place] [address] documented in this encounter Visit Diagnoses Diagnosis Anemia of chronic renal failure, stage 4 (severe) ([facility]) Type 2 diabetes mellitus with stage 3b chronic kidney disease, without long-term current use of insulin (HCC) Acquired hypothyroidism Unspecified hypothyroidism B12 deficiency Other B-complex deficiencies Vitamin D deficiency Unspecified vitamin D deficiency documented in this encounter Care Teams [place] [employer] Relationship Specialty Start Date End Date Milton Balderas MD [address] [place] [address] PCP - General Family Medicine 10/13/20 documented as of this encounter
--- OUTSIDE RECORDS SUMMARY | 2024-08-19 10:35 | External Medical Summary ---
Author Name Unknown Address Unknown Organization K01:LABORATORY [facility] [place] [address] [place] [address] Laboratory Report Ordering Provider Test Date Status ANNAMARIE ROMANO 07/01/2024 10:36:17 Final Observation Date Value Abnormality Reference (Units ) Status Vitamin B12 07/01/2024 10:36:17 >2000 Above high normal 232-1245 (pg/mL) Final Performing Location [facility] - [address] [place] [address]
--- OUTSIDE RECORDS SUMMARY | 2024-08-19 10:35 | External Medical Summary ---
Author Name Unknown Address Unknown Organization K01:LABORATORY [facility] [place] - [address] [place] [address] Laboratory Report Ordering Provider Test Date Status ANNAMARIE ROMANO 07/01/2024 10:36:17 Final Observation Date Value Abnormality Reference (Units ) Status LDL, (direct) 07/01/2024 10:36:17 52 <=129 (mg/dL) Final LDL Cholesterol Reference Ra nges (mg/dL):
<70 � � Target level for high risk ASCVD patient
<100 � �Optimal for general population
100-129 Near optimal for general population
130-159 Borderline high
160-189 High
>=190 � Very high Performing Location [facility] - [address] [place] [address]
--- OUTSIDE RECORDS SUMMARY | 2024-08-19 10:35 | External Medical Summary ---
Author Name Unknown Address Unknown Organization K01:[place] [place] [address] [place] [address] Laboratory Report Ordering Provider Test Date Status MAGGIE LANDERSOSIRIS 07/01/2024 10:36:17 Final Observation Date Value Abnormality Reference (Units ) Status Ferritin 07/01/2024 10:36:17 428 Above high normal 13 -150 (ng/mL) Final Postmenopausal women have hi gher ferritin levels than pre-menopausal women. The above reference interval is based on pre-menopausal women. Performing Location [facility] [place] [address] [place] [address]
--- OUTSIDE RECORDS SUMMARY | 2024-08-19 10:35 | External Medical Summary ---
Author Name Unknown Address Unknown Organization K01:LAB[facility]ORY [facility] [place] [facility] [address] [place] [address] Laboratory Report Ordering Provider Test Date Status ANNAMARIE ROMANO 07/01/2024 10:36:17 Final Normal: <30 mg/g creatinine< br/>High: 30-300 mg/g creatinine
Very High: >300 mg/g creatinine
Nephrotic: >2200 mg/g creatinine Observation Date Value Abnormality Reference (Units ) Status Albumin, Urine 07/01/2024 10:36:17 169.00 (mg/dL) Final Creatinine, Urine 07/01/2024 10:36:17 217 (mg/dL) Final Albumin/Creatinine [Mass Ratio] in Urine 07/01/2024 10:36:17 779 Above high normal <30 (mg/g Creat) Final Performing Location LABORATORY [facility] [place] [facility] [address] [place] [address]
== END 2024-06-21 12:50 | disposition home or self-care (01) | DRG 313 ==
LOC: ED 16:53 → OBSVTOIN 06-20 02:19 → INTOOBSV 06-20 02:19 → EDINP 06-20 02:19 → 2S 06-20 12:37

== ENCOUNTER 2024-12-13 10:48 | Inpatient (IN) ==
--- NOTE | 2024-12-13 11:09 | Emergency Department Note ---
Impression & Plan ESBL (extended spectrum beta-lactamase) producing bacteria infection, Weakness, Abdominal pain ED Provider Note NAME: KELLI ALBRIGHT AGE: 89 SEX: F : 1935 ARRIVES VIA: Walk-In INFORMANT: Patient ED PROVIDER(S): Dash Pavon DO CHIEF COMPLAINT: Lower pelvic pressure, UTI HPI: Patient is an 89-year-old female with a past medical history of NSTEMI, hypertension, GERD who presents to the ER for admission for weakness and a UTI which is ESBL susceptible to Zosyn and ertapenem. Per family at bedside she has been weak this week on Monday started with lower abdominal pressure. She was seen at [facility] and had blood work done on Monday including a UA. Culture shows resistance with an ESBL and Zosyn and ertapenem. Referred in for admission. No back pain. ADDITIONAL HISTORY OBTAINED: Per HPI Chronic Medical/Social Conditions Affecting Care: Per HPI PAST MEDICAL HISTORY:See Below PAST SURGICAL HISTORY:See Below FAMILY HISTORY:See Below SOCIAL HISTORY:See Below HOME MEDICATIONS:See Below ALLERGIES:See Below VITALS:See Below PHYSICAL EXAMINATION: GENERAL: Sitting up in bed, alert, well appearing, well nourished, no distress, non-toxic EYE EXAM: normal conjunctiva. OROPHARYNX: mucous membranes are moist NECK: supple, no nuchal rigidity, no adenopathy, non-tender LUNGS: Clear to auscultation. Normal chest wall mechanics HEART: no murmurs, S1 normal and S2 normal ABDOMEN: abdomen soft, non-tender, normo-active bowel sounds, no masses, no rebound or guarding. BACK: Back is symmetrical on inspection and there is no deformity, no midline tenderness, no CVA tenderness. UPPER EXTREMITIES: upper extremities are grossly normal. LOWER EXTREMITIES: No pitting edema. NEURO EXAM: Normal sensorium, cranial nerves II-XII grossly intact, normal speech, no gross weakness of arms, no gross weakness of legs. MEDICAL DECISION MAKING: Patient is an 89-year-old female who presents ER for the above-stated complaint. IV was established and blood work was obtained. Labs show no significant leukocytosis and a mild anemia at 11.3. BMP with a creatinine 1.59. Glucose mildly elevated at 238. LFTs and bilirubin and lipase were fairly unremarkable. UA with leuks whites and plus for bacteria. External records were reviewed from [facility] which shows a urine culture with an ESBL susceptible to Zosyn and ertapenem. Patient was given IV Zosyn here. Updated at bedside. Discussed case with the hospitalist for further evaluation management treatment. Afebrile no back pain. No signs of Pylo. Patient was admitted for further workup to Dr. Montoya. Consults/Care Managements Discussions: Per MDM Triage Nursing notes reviewed. Limited review of prior medical records performed Vital Signs: reviewed and remarkable for no significant abnormalities Differential diagnosis: Differential diagnoses includes but is not limited to gastritis, peptic ulcer disease, GERD, gallbladder disease, pancreatitis, small bowel obstruction, appendicitis, diverticulitis, hernia, urinary tract infection, torsion, perforation, trauma, infectious. ER treatment provided: See below Diagnostics interpreted by me include EKG and cardiac monitoring as listed below: -Cardiac Monitoring: An order was placed for continuous cardiac monitoring. The monitor shows a rate of 80 with sinus rhythm. -ECG: none -Laboratory studies:Interpreted by me as stated above in MDM and shown below. Imaging studies: Xrays: As interpreted by me:none CTs show: none Procedures:none Critical Care: None Past Med/Surg History Problem List (Updated 12/13/24 @ 12:10 by Dash Pavon DO) Abdominal pain (Acute) Weakness (Acute) ESBL (extended spectrum beta-lactamase) producing bacteria infection (Acute) Abnormal ECG (Acute) NSTEMI (non-ST elevated myocardial infarction) Hypertension (Acute) Abdominal discomfort (Acute) Generalized weakness Hypomagnesemia (Acute) Diverticulitis (Acute) Diverticulitis of sigmoid colon (Acute) Acute metabolic encephalopathy Acute alteration in mental status (Acute) Urinary tract infection (Acute) Abnormal LFTs (Acute) SOL (acute kidney injury) (Acute) Hypomagnesemia (Acute) Generalized weakness (Acute) Hypomagnesemia (Acute) Generalized weakness (Acute) Elevated troponin (Acute) Chest pain (Acute) Decreased appetite Generalized weakness Elevated troponin Chronic anemia Chest pain (Acute) Abnormal EKG (Acute) Chronic RLQ pain Basal cell carcinoma of skin of ankle (Acute) Left knee DJD (Acute) Lichen sclerosus et atrophicus (Acute) Myelodysplastic syndrome (Acute) Right knee DJD (Acute) Urge and stress incontinence (Acute) Low back pain DVT prophylaxis Abnormal ECG Pernicious anemia DORIS on CPAP Hypothyroidism GERD (gastroesophageal reflux disease) Dyslipidemia DM type 2 (diabetes mellitus, type 2) (Acute) CKD (chronic kidney disease), stage III (Acute) Anemia due to chronic kidney disease Substernal chest pain (Acute) Chest pain (Acute) Medical History Elevated troponin Chest pain Abdominal pain, LLQ (left lower quadrant) HTN (hypertension) CKD (chronic kidney disease) Complicated UTI (urinary tract infection) History of ESBL E. coli infection Hypertensive urgency IgM lambda paraproteinemia Surgical History History of gynecologic surgery anterior colporrhaphy History of hysteroscopy Status post tubal ligation History of total bilateral knee replacement (TKR) History of knee surgery History of appendectomy History of dilation and curettage S/P cholecystectomy Family History Mother , 85 Heart disease Diabetes Father , 65 Pancreatic cancer Sister Uterine cancer Breast cancer Denies family history of Ovarian cancer Colorectal cancer Social History Smoking Status: Never smoker Tobacco Type: Cigarettes Second Hand Exposure: No; Do You Dip or Chew Tobacco: No; Hx Alcohol Use: No Hx Substance Use: No Preferred Language: Welsh Communication Ability: Effective Multimedia Technician Required: No Beliefs That Will Affect Care: None marital status: Current Living Situation: Spouse Current Living Situation Comment: at home current occupational status: retired Feels Safe at Home: Yes Assistive Devices: Cane and Walker Allergies Allergies Allergy/AdvReac Type Severity Reaction Status Date / Time corn Allergy Severe Diarrhea Verified 11/27/24 10:46 ciprofloxacin Allergy Intermediate RASH Verified 11/27/24 10:46 BENEDICT Inhibitors AdvReac Intermediate COUGH Verified 11/27/24 10:46 metformin AdvReac Intermediate GI SYMPTOMS Verified 11/27/24 10:46 Home Meds Home Medications Medication Instructions Recorded Confirmed aspirin 81 mg tablet,delayed 81 mg PO DAILY 06/20/24 12/13/24 release dulaglutide 0.75 mg/0.5 mL 0.75 mg subcut WK 06/20/24 12/13/24 subcutaneous pen injector ([facility]) ferrous sulfate 325 mg (65 mg 325 mg PO DAILY 06/20/24 12/13/24 iron) tablet levothyroxine 75 mcg tablet 75 mcg PO DAILYBB 06/20/24 12/13/24 Lactobacil.acidophilus-Bifido.animalis 1 cap PO DAILY 09/10/24 12/13/24 5 billion cell sprinkle capsule (Probiotic) biotin 1 mg tablet 1 mg PO DAILY 09/10/24 12/13/24 cholecalciferol (vitamin D3) 25 25 mcg PO DAILY 09/10/24 12/13/24 mcg (1,000 unit) capsule (Vitamin D3) epoetin lou 10,000 unit/mL 10,000 unit subcut MONTHLY PRN IF 09/10/24 12/13/24 injection solution (Procrit) NEEDED PER PT/MD losartan 50 mg tablet 50 mg PO DAILY 09/10/24 12/13/24 psyllium husk 0.4 gram capsule 0.4 g PO Q OTHER DAY 09/10/24 12/13/24 (Metamucil) amlodipine 5 mg tablet 5 mg DAILY 12/13/24 12/13/24 patiromer calcium sorbitex 8.4 8.4 g PO Q OTHER DAY 12/13/24 12/13/24 gram oral powder packet (Veltassa) Results & Data (ED) Vital Signs Vital Signs - 24 hr 12/13/24 10:49 12/13/24 10:49 12/13/24 11:13 Temperature 36.6 C Temperature Source Temporal Artery Scan Pulse Rate 86 Pulse Rate [Left Apical] 81 Respiratory Rate 18 16 15 Respiratory Effort / Characteristics Non-Labored Spontaneous Respiratory Depth Normal Respiratory Pattern Regular Blood Pressure 168/73 H Blood Pressure [Left Arm] 138/62 Blood Pressure Mean 104 Blood Pressure Mean [Left Arm] 87 Pulse Oximetry 95 94 Oxygen Delivery Method Room Air Sepsis Recent Fever Within 48 Hours No Sepsis New/Unexplained Change in Mental Status N/A Sepsis Action Taken by Nursing No Action Required 12/13/24 11:17 Temperature Temperature Source Pulse Rate 80 Pulse Rate [Left Apical] Respiratory Rate Respiratory Effort / Characteristics Respiratory Depth Respiratory Pattern Blood Pressure Blood Pressure [Left Arm] Blood Pressure Mean Blood Pressure Mean [Left Arm] Pulse Oximetry Oxygen Delivery Method Sepsis Recent Fever Within 48 Hours Sepsis New/Unexplained Change in Mental Status Sepsis Action Taken by Nursing Laboratory Data 12/13/24 11:15 12/13/24 11:15 Lab Results 12/13/24 12/13/24 Range/Units 11:14 11:15 WBC 6.26 (4.8-10.8) K/ul RBC 3.82 L (4.20-5.40) M/uL Hgb 11.3 L (12.0-16.0) g/dl Hct 34.2 L (37.0-47.0) % MCV 89.5 (80.0-100.0) fL MCH 29.6 (25.0-34.0) pg MCHC 33.0 (32.0-36.0) g/dL RDW Std Deviation 43.1 (36.4-46.3) fL RDW Coeff of Elpidio 13.2 (11.5-14.5) % Plt Count 211 (130-400) K/uL MPV 10.6 (9.4-12.4) fL Immature Gran % (Auto) 0.2 % Neut % (Auto) 63.5 % Lymph % (Auto) 23.2 % Crowley % (Auto) 8.6 % Eos % (Auto) 3.5 % Baso % (Auto) 1.0 % Neut # (Auto) 3.98 (1.40-6.50) K/uL Lymph # (Auto) 1.45 (1.20-3.40) K/uL Crowley # (Auto) 0.54 (0.11-0.59) K/uL Eos # (Auto) 0.22 (0.00-0.50) K/uL Baso # (Auto) 0.06 (0.00-0.20) K/uL Immature Gran # (Auto) 0.01 (0.01-0.20) K/uL Sodium 138 (136-145) mmol/L Potassium 4.2 (3.5-5.1) mmol/L Chloride 105 (98-107) mmol/L Carbon Dioxide 25 (21-32) mmol/L Anion Gap 8 (3-11) BUN 29 H (6-23) mg/dl Creatinine 1.59 H (0.6-1.2) mg/dl Est Cr Clr Drug Dosing 25.7 ml/min eGFR 31.26 BUN/Creatinine Ratio 18.2 (10-20) Glucose 238 H (70-99(Fasting)) mg/dl Calcium 9.8 (8.6-10.3) mg/dl Total Bilirubin 1.2 H (0.2-1.0) mg/dl AST 45 H (13-39) U/L ALT 50 (7-52) U/L Alkaline Phosphatase 50 (34-104) U/L Total Protein 7.1 (6.0-8.3) gm/dl Albumin 3.8 (3.4-5.0) gm/dl Globulin 3.3 (2.5-4.0) gm/dl Albumin/Globulin Ratio 1.2 (0.9-2) Lipase 45 (11-82) U/L Urine Color Yellow Urine Appearance Cloudy A (Clear) Urine pH 5.0 (4.5-7.5) Ur Specific [place] 1.014 (1.000-1.030) Urine Protein 2+ H (Negative) Urine Glucose (UA) Negative (Negative) Urine Ketones Negative (Negative) Urine Blood Trace H (Negative) Urine Nitrite Negative (Negative) Urine Bilirubin Negative (Negative) Urine Urobilinogen Negative (Negative) Ur Leukocyte Esterase 2+ H (Negative) Urine WBC (Auto) >50 H (0-5) /hpf Urine RBC (Auto) 0-2 (0-2) /hpf U Hyaline Cast (Auto) 0-2 (0-2) /lpf U Epithel Cells (Auto) 0-2 (0-2) /hpf Urine Bacteria (Auto) 4+ H (None Seen) Urine Comment Administered Medications Discontinued Medications Piperacillin Sod/Tazobactam Sod (Zosyn) 4.5 gm in 100 mls @ 200 mls/hr IV NOW ONE; Protocol Stop: 12/13/24 11:33 Last Infusion: 12/13/24 11:54 Dose: Infused Documented By: Admin: 12/13/24 11:24 Dose: 200 mls/hr Documented By: [facility] Discharge Plan Visit Data Chief Complaint: Referred by Doctor Stated Complaint: REFERRED BY DOCTOR ED Provider: Dash Pavon Discharge Problem: ESBL (extended spectrum beta-lactamase) producing bacteria infection, Weakness, Abdominal pain Condition: Fair Forms Stand Alone Forms: My [facility] Prescriptions Prescriptions: No Action aspirin 81 mg Tablet,Delayed Release (Dr/Ec) 81 mg PO DAILY levothyroxine 75 mcg tablet 75 mcg PO DAILYBB ferrous sulfate 325 mg (65 mg iron) Tablet 325 mg PO DAILY Trulicity 0.75 mg/0.5 mL pen injector 0.75 mg SUBCUT WK Rx Instructions: MONDAYS losartan 50 mg tablet 50 mg PO DAILY Procrit 10,000 unit/mL Solution 10,000 unit subcut MONTHLY PRN (Reason: IF NEEDED PER PT/MD) cholecalciferol (vitamin D3) [Vitamin D3] 25 mcg (1,000 unit) Capsule 25 mcg PO DAILY biotin 1 mg Tablet 1 mg PO DAILY Probiotic 5 billion cell Capsule, Sprinkle 1 cap PO DAILY psyllium husk [Metamucil] 0.4 gram Capsule 0.4 g PO Q OTHER DAY amlodipine 5 mg tablet 5 mg DAILY Veltassa 8.4 gram powder in packet 8.4 g PO Q OTHER DAY Referrals Referrals: Milton Balderas MD [Primary Care Provider] - Discharge Problem: Abdominal pain Qualifiers: Abdominal location: unspecified location Qualified Code(s): R10.9 - Unspecified abdominal pain
[2024-12-13] MEDS: PIPERACILLIN/TAZOBACTAM 4.5 GM/100 ML BAG IV ONE (11:24)
--- NOTE | 2024-12-13 11:26 | History & Physical Report ---
Date of Service December 13, 2024 Assessment & Plan (1) ESBL (extended spectrum beta-lactamase) producing bacteria infection: (2) Urinary tract infection: Plan Ms. Francisco is an 89 year old woman with past medical history remarkable for anemia of chronic disease, CKD III, HTN, DMTII, prior ESBL admitted to med/surg for management of ESBL acute cystitis. Culture data per , awaiting records to return Plan to treat with ertapenem for short course #Acute cystitis #History of ESBL given zosyn in ed Will continue with ertapenem qd reportedly culture at [facility] with ESBL susceptible to Zosyn and ertapenem follow infectious work up Contact precautions #Anemia of chronic disease procrit q monthly; last administered 2 weeks ago stable continue iron #HTN continue losartan 50mh continue amlodipine 5mg #CKD III baseline cr 1.4-1.5 1.59, will give small bolus and encourage po intake #abnormal lfts historically presents with initially elevated ast, however, will trend cmp if uptrending for additional eval #Hypothyroidism tsh in 10/2024 3.15 continue synthroid 75mcg daily #DMTII A1C 7.2 11/2024 hold trulicity SSI while admitted #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 Balderas Admission and Anticipated Discharge Date Admission Date: Time spent evaluating patient, direct bedside care, chart review, placing orders, interpretation of diagnostic studies, discussion with consultants, patient, and family members, as well as other required patient management activities is 75 minutes. History of Present Illness Chief Complaint: abnormal OSH lab Primary Care Provider: Milton Balderas MD Ms. Francisco is an 89 year old woman with past medical history remarkable for anemia of chronic disease, CKD III, HTN, DMTII, prior ESBL presented to [facility] ED due to abnormal labs as an outpatient. Patient has presented to [facility] and due to intermittent confusion on going in last week. Work up at [facility] was initially negative, however, at urine culture noted ESBL on culture. Patient was contacted and advised to present to ED. She does report increased urinary frequency and pressure. She reports some slowness in her cognition in the mornings; at bedside and agrees that she has had a few more episodes of confusion in recent days. Patient is alert and oriented to self, city/state/hospital, situation, notes that year is "maybe 2022 or 2023"--otherwise very engaged and observant of surroundings. She denies any bowel issues, fevers, chills, chest pain, nausea, or vomiting. She denies any falls. She ambulates with a walker or cane depending on what her activity is. She denies any etoh use, tobacco use, or illicits. Patient with prior history of esbl infection requiring short course of IV abx in 12/2023 Labs with stable anemia of 11.3, cr. 1.59 (baseline 1.4-1.59) AST 45 (intermittent elevations historicallly), UA suspicious for infection with 4+bacteria, WBC and LE + In the ED, vitals were notable for BP of 130s-160s, HR of 80s, and O2 sat of mid-high 90s on room air and afebrile No imaging indicated ED interventions: junie Patient to be admitted to med surg for further evaluation and management of ESBL UA. Records from have been requested Allergies Allergy/AdvReac Type Severity Reaction Status Date / Time corn Allergy Severe Diarrhea Verified 11/27/24 10:46 ciprofloxacin Allergy Intermediate RASH Verified 11/27/24 10:46 BENEDICT Inhibitors AdvReac Intermediate COUGH Verified 11/27/24 10:46 metformin AdvReac Intermediate GI SYMPTOMS Verified 11/27/24 10:46 Home Medications Medication Instructions Recorded Confirmed Type aspirin 81 mg tablet,delayed 81 mg PO DAILY 06/20/24 12/13/24 History release dulaglutide 0.75 mg/0.5 mL 0.75 mg subcut WK 06/20/24 12/13/24 History subcutaneous pen injector (Trulicity) ferrous sulfate 325 mg (65 mg 325 mg PO DAILY 06/20/24 12/13/24 History iron) tablet levothyroxine 75 mcg tablet 75 mcg PO DAILYBB 06/20/24 12/13/24 History Lactobacil.acidophilus-Bifido.animalis 1 cap PO DAILY 09/10/24 12/13/24 History 5 billion cell sprinkle capsule (Probiotic) biotin 1 mg tablet 1 mg PO DAILY 09/10/24 12/13/24 History cholecalciferol (vitamin D3) 25 25 mcg PO DAILY 09/10/24 12/13/24 History mcg (1,000 unit) capsule (Vitamin D3) epoetin lou 10,000 unit/mL 10,000 unit subcut MONTHLY PRN IF 09/10/24 12/13/24 History injection solution (Procrit) NEEDED PER PT/MD losartan 50 mg tablet 50 mg PO DAILY 09/10/24 12/13/24 History psyllium husk 0.4 gram capsule 0.4 g PO Q OTHER DAY 09/10/24 12/13/24 History (Metamucil) amlodipine 5 mg tablet 5 mg DAILY 12/13/24 12/13/24 History patiromer calcium sorbitex 8.4 8.4 g PO Q OTHER DAY 12/13/24 12/13/24 History gram oral powder packet (Veltassa) Past Med/Surg History Problem List (Updated 12/13/24 @ 12:10 by Dash Pavon DO) Abdominal pain (Acute) Weakness (Acute) ESBL (extended spectrum beta-lactamase) producing bacteria infection (Acute) Abnormal ECG (Acute) NSTEMI (non-ST elevated myocardial infarction) Hypertension (Acute) Abdominal discomfort (Acute) Generalized weakness Hypomagnesemia (Acute) Diverticulitis (Acute) Diverticulitis of sigmoid colon (Acute) Acute metabolic encephalopathy Acute alteration in mental status (Acute) Urinary tract infection (Acute) Abnormal LFTs (Acute) SOL (acute kidney injury) (Acute) Hypomagnesemia (Acute) Generalized weakness (Acute) Hypomagnesemia (Acute) Generalized weakness (Acute) Elevated troponin (Acute) Chest pain (Acute) Decreased appetite Generalized weakness Elevated troponin Chronic anemia Chest pain (Acute) Abnormal EKG (Acute) Chronic RLQ pain Basal cell carcinoma of skin of ankle (Acute) Left knee DJD (Acute) Lichen sclerosus et atrophicus (Acute) Myelodysplastic syndrome (Acute) Right knee DJD (Acute) Urge and stress incontinence (Acute) Low back pain DVT prophylaxis Abnormal ECG Pernicious anemia DORIS on CPAP Hypothyroidism GERD (gastroesophageal reflux disease) Dyslipidemia DM type 2 (diabetes mellitus, type 2) (Acute) CKD (chronic kidney disease), stage III (Acute) Anemia due to chronic kidney disease Substernal chest pain (Acute) Chest pain (Acute) Medical History Elevated troponin Chest pain Abdominal pain, LLQ (left lower quadrant) HTN (hypertension) CKD (chronic kidney disease) Complicated UTI (urinary tract infection) History of ESBL E. coli infection Hypertensive urgency IgM lambda paraproteinemia Surgical History History of gynecologic surgery anterior colporrhaphy History of hysteroscopy Status post tubal ligation History of total bilateral knee replacement (TKR) History of knee surgery History of appendectomy History of dilation and curettage S/P cholecystectomy Family History Mother , 85 Heart disease Diabetes Father , 65 Pancreatic cancer Sister Uterine cancer Breast cancer Denies family history of Ovarian cancer Colorectal cancer Social History Smoking Status: Never smoker Tobacco Type: Cigarettes Second Hand Exposure: No; Do You Dip or Chew Tobacco: No; Hx Alcohol Use: No Hx Substance Use: No Preferred Language: Romansh Communication Ability: Effective Supervisor [employer] Required: No Beliefs That Will Affect Care: None marital status: Current Living Situation: Spouse Current Living Situation Comment: at home current occupational status: retired Feels Safe at Home: Yes Assistive Devices: Cane and Walker Review of Systems Review of Systems: Constitutional: (-) fever/chills, (-) recent loss of weight, (-) appetite changes, (-) night sweats. Head: (-) headache, (-) dizziness. Eye: (-) blurring of vision, (-) double vision, (-) redness. Ear: (-) hearing loss, (-) discharge, (-) vertigo Nose: (-) discharge, (-) bleeding, (-) congestion, (-) post nasal drip. Throat: (-) sore throat, (-) hoarseness of voice, (-) odynophagia. Cardiovascular: (-) chest pain, (-) palpitations, (-) syncope, (-) orthopnea, (- ) PND, (-) leg swelling. Respiratory: (-) shortness of breath, (-) cough, (-) wheezing, (-) hemoptysis. Neuro: (-) weakness in extremities, (-) numbness, (-) tingling, (-) tremor. Gastrointestinal: (-) belly pain, (-) belly distension, (-) nausea, (-) vomiting, (-) diarrhea, (-) constipation Genitourinary: (-) hematuria, (-) dysuria, (-) polyuria, (+) hesitancy, (+) frequency, (-) urinary incontinence. Musculoskeletal: (-) myalgia, (-) arthralgia. Skin: (-) rashes. Endocrine: (-) heat/cold intolerance. Psychiatry: (-) depression, (-) hallucination. Physical Exam Physical Exam: GENERAL APPEARANCE: AxOx2-3, generally well-appearing elderly woman, no acute distress. HEENT: NC, AT. MMM. EOMI, clear conjunctiva, oropharynx clear. NECK: Supple without lymphadenopathy. No stiffness or restricted ROM. HEART: Normal rate and regular rhythm, normal S1/S1, no m/r/g LUNGS: CTAB, moving air well. No crackles or wheezes are heard. ABDOMEN: Soft, nontender, nondistended with good bowel sounds heard. BACK: No CVAT, no obvious deformity. EXTREMITIES: Without cyanosis, clubbing or edema. NEUROLOGICAL: Grossly nonfocal. Alert and oriented, moving all 4 extremities. CN not formally tested but appear grossly intact Skin: Warm and dry without any rash. Results & Data Results & Data Vital Signs (Past 12 Hours) Vital Signs Temp Pulse Pulse Resp BP BP Pulse Ox 12/13/24 11:17 80 12/13/24 11:13 81 15 138/62 94 12/13/24 10:49 16 12/13/24 10:49 36.6 C 86 18 168/73 H 95 O2 Del Method 12/13/24 11:17 12/13/24 11:13 Room Air 12/13/24 10:49 12/13/24 10:49 Laboratory Results Short CBC 12/13/24 Range/Units 11:15 WBC 6.26 (4.8-10.8) K/ul Hgb 11.3 L (12.0-16.0) g/dl Hct 34.2 L (37.0-47.0) % Plt Count 211 (130-400) K/uL BMP 12/13/24 11:15 Sodium 138 Potassium 4.2 Chloride 105 Carbon Dioxide 25 BUN 29 H Creatinine 1.59 H Glucose 238 H Calcium 9.8 Liver Function 12/13/24 Range/Units 11:15 Total Bilirubin 1.2 H (0.2-1.0) mg/dl AST 45 H (13-39) U/L ALT 50 (7-52) U/L Alkaline Phosphatase 50 (34-104) U/L Albumin 3.8 (3.4-5.0) gm/dl Urine 12/13/24 Range/Units 11:14 Urine Color Yellow Urine Appearance Cloudy A (Clear) Urine pH 5.0 (4.5-7.5) Ur Specific [place] 1.014 (1.000-1.030) Urine Protein 2+ H (Negative) Urine Glucose (UA) Negative (Negative) Medications Administered Home Medications Medication Instructions Recorded Confirmed Last Taken aspirin 81 mg tablet,delayed 81 mg PO DAILY 06/20/24 12/13/24 09/18/24 release dulaglutide 0.75 mg/0.5 mL 0.75 mg subcut WK 06/20/24 12/13/24 11/25/24 subcutaneous pen injector (Trulicity) ferrous sulfate 325 mg (65 mg 325 mg PO DAILY 06/20/24 12/13/24 09/10/24 08:00 iron) tablet levothyroxine 75 mcg tablet 75 mcg PO DAILYBB 06/20/24 12/13/24 11/27/24 Lactobacil.acidophilus-Bifido.animalis 1 cap PO DAILY 09/10/24 12/13/24 09/10/24 5 billion cell sprinkle capsule (Probiotic) biotin 1 mg tablet 1 mg PO DAILY 09/10/24 12/13/24 09/18/24 cholecalciferol (vitamin D3) 25 25 mcg PO DAILY 09/10/24 12/13/24 09/18/24 mcg (1,000 unit) capsule (Vitamin D3) epoetin lou 10,000 unit/mL 10,000 unit subcut MONTHLY PRN IF 09/10/24 12/13/24 09/18/24 injection solution (Procrit) NEEDED PER PT/MD losartan 50 mg tablet 50 mg PO DAILY 09/10/24 12/13/24 09/10/24 psyllium husk 0.4 gram capsule 0.4 g PO Q OTHER DAY 09/10/24 12/13/24 09/09/24 (Metamucil) amlodipine 5 mg tablet 5 mg DAILY 12/13/24 12/13/24 Unknown patiromer calcium sorbitex 8.4 8.4 g PO Q OTHER DAY 12/13/24 12/13/24 Unknown gram oral powder packet (Veltassa) (2) Urinary tract infection Hematuria presence: without hematuria Urinary tract infection type: site u nspecified Qualified Code(s): N39.0 - Urinary tract infection, site not specified
[2024-12-13 11:34] LABS: Hematocrit (blood only) 34.2 % (37.0-47.0); Hemoglobin 11.3 g/dl (12.0-16.0); Immature Granulocytes # (auto) 0.01 K/uL (0.01-0.20); Immature Granulocytes % (auto) 0.2 %; Mean Corpuscular Hemoglobin 29.6 pg (25.0-34.0); Mean Corpuscular Volume 89.5 fL (80.0-100.0); Platelet Count 211 K/uL (130-400); RDW Standard Deviation 43.1 fL (36.4-46.3); Red Blood Count 3.82 M/uL (4.20-5.40); White Blood Count 6.26 K/ul (4.8-10.8)
[2024-12-13 11:44] LABS: Appearance Urine Cloudy (Clear); Bacteria Urine Automated 4+ (None Seen); Cast Urine Automated 0-2 /lpf (0-2); Epithelial Cell Urine Auto 0-2 /hpf (0-2); Glucose Urine UA Negative (Negative); RBC Urine Automated 0-2 /hpf (0-2); WBC Urine Automated >50 /hpf (0-5)
[2024-12-13] MEDS ORDERED: DEXTROSE 50% 50 ML SYRINGE IV PRN (11:50)
[2024-12-13] MEDS ORDERED: POLYETHYLENE (MIRALAX) 17 GM PACK PO PRN (11:50)
[2024-12-13] MEDS ORDERED: ACETAMINOPHEN 325 MG TAB PO PRN (11:50)
[2024-12-13] MEDS ORDERED: CARBOHYDRATES FOR HYPOGLYCEMIA PO PRN (11:50)
[2024-12-13] MEDS ORDERED: GLUCOSE 10 TAB/TUBE PO PRN (11:50)
[2024-12-13] MEDS ORDERED: GLUCAGON FOR INJ 1 MG VIAL SQ PRN (11:50)
[2024-12-13] MEDS ORDERED: ONDANSETRON INJ 2 MG/ML 2 ML VIAL IV PRN (11:50)
[2024-12-13] MEDS ORDERED: GLUCOSE 40% GEL 15 GM TUBE PO PRN (11:50)
[2024-12-13 11:51] LABS: Alanine Aminotransferase 50.0 U/L (7-52); Albumin Globulin Ratio 1.2 (0.9-2); Alkaline Phosphatase 50.0 U/L (34-104); Anion Gap 8.0 (3-11); Bilirubin,Total 1.2 mg/dl (0.2-1.0); Blood Urea Nitrogen 29.0 mg/dl (6-23); Calcium 9.8 mg/dl (8.6-10.3); Carbon Dioxide 25.0 mmol/L (21-32); Chloride 105.0 mmol/L (98-107); Creatinine Clr Calc Pharmacy 25.7 ml/min; Globulin 3.3 gm/dl (2.5-4.0); Glucose 238.0 mg/dl (70-99(Fasting)); Lipase 45.0 U/L (11-82); Potassium 4.2 mmol/L (3.5-5.1); Sodium 138.0 mmol/L (136-145); Total Protein 7.1 gm/dl (6.0-8.3)
[2024-12-13] MEDS: ASPIRIN 81 MG ECTAB PO ONE (12:16)
[2024-12-13] MEDS: ERTAPENEM 1000MG 1,000 MG/10 ML SYR IV ONE (12:17)
[2024-12-13] MEDS: SODIUM CHLORIDE 0.9% 500 ML IV ONE (12:25)
[2024-12-13 12:44] LABS: Magnesium 1.6 mg/dl (1.7-2.4)
[2024-12-13 13:04] LABS: Folate (Folic Acid),Ser orPlas 18.39 ng/ml (>5.38)
[2024-12-13 13:05] LABS: Vitamin B12 1037.0 pg/ml (180-914)
[2024-12-13] MEDS ORDERED: LOPERAMIDE HCL 2 MG CAP PO PRN (13:40)
[2024-12-13] MEDS: LOPERAMIDE HCL 2 MG CAP PO STA (14:23)
[2024-12-13] MEDS: ADVANCED PROBIOTIC 625 MG CAPSULE PO ONE (14:23)
[2024-12-13] MEDS: HEPARIN SOD 5,000 UNIT/0.5 ML VIAL SQ SCH (14:23)
[2024-12-13] MEDS: PSYLLIUM HUSK 4GM PACKET PO SCH (16:06)
[2024-12-13 16:13] VITALS: RESP 16
[2024-12-13] MEDS: INSULIN ASPART PER UNIT CHARGE SC SCH (17:28)
[2024-12-14] MEDS: LEVOTHYROXINE SODIUM 75 MCG TABLET PO SCH (05:51)
[2024-12-14 06:14] LABS: Hematocrit (blood only) 29.7 % (37.0-47.0); Hemoglobin 10.1 g/dl (12.0-16.0); Mean Corpuscular Hemoglobin 30.2 pg (25.0-34.0); Mean Corpuscular Volume 88.9 fL (80.0-100.0); Platelet Count 197 K/uL (130-400); RDW Standard Deviation 42.3 fL (36.4-46.3); Red Blood Count 3.34 M/uL (4.20-5.40); White Blood Count 5.89 K/ul (4.8-10.8)
[2024-12-14 06:38] LABS: Alanine Aminotransferase 42.0 U/L (7-52); Albumin Globulin Ratio 1.3 (0.9-2); Alkaline Phosphatase 39.0 U/L (34-104); Anion Gap 7.0 (3-11); Bilirubin,Total 0.6 mg/dl (0.2-1.0); Blood Urea Nitrogen 28.0 mg/dl (6-23); Calcium 9.1 mg/dl (8.6-10.3); Carbon Dioxide 27.0 mmol/L (21-32); Chloride 108.0 mmol/L (98-107); Creatinine Clr Calc Pharmacy 27.3 ml/min; Globulin 2.6 gm/dl (2.5-4.0); Glucose 112.0 mg/dl (70-99(Fasting)); Magnesium 1.6 mg/dl (1.7-2.4); Potassium 4.1 mmol/L (3.5-5.1); Sodium 142.0 mmol/L (136-145); Total Protein 6.0 gm/dl (6.0-8.3)
[2024-12-14] MEDS: ADVANCED PROBIOTIC 625 MG CAPSULE PO SCH (09:07)
[2024-12-14] MEDS: MAGNESIUM OXIDE 400 MG TAB PO SCH (09:07)
[2024-12-14] MEDS: FERROUS SULFATE 325 MG TAB PO SCH (09:07)
[2024-12-14] MEDS: LOSARTAN POTASSIUM 50 MG TAB PO SCH (09:07)
[2024-12-14] MEDS: ASPIRIN 81 MG ECTAB PO SCH (09:07)
--- NOTE | 2024-12-14 11:28 | Hospitalist Progress Note ---
Date of Service December 14, 2024 Assessment & Plan (1) ESBL (extended spectrum beta-lactamase) producing bacteria infection: (2) Urinary tract infection: (3) Hypertension: (4) Hypomagnesemia: (5) Acute metabolic encephalopathy: (6) DM type 2 (diabetes mellitus, type 2): (7) CKD (chronic kidney disease), stage III: Plan Patient 89-year-old female sent to the ED by outside provider due to the fact that she had a urine culture growing ESBL E. coli. Patient reportedly was symptomatic with some weakness and confusion over the last week or so indicating possible need to treat this infection WBCs normal Continue ertapenem Attempt to get sensitivities from outside hospital Replace magnesium Therapies Attempted to contact via phone, no answer Admission and Anticipated Discharge Date Admission Date: December 13, 2024 Subjective Patient denies any specific complaints. States that she is not confused and able to give all correct answers. Up and ambulatory in the room by herself. Physical Exam Physical Exam: Constitutional: Alert, nontoxic HEENT: Mucous membranes moist. Lungs: Clear to auscultation, decreased, no wheezes rales or rhonchi CV: S1-S2, regular Abdomen: Soft, nontender, nondistended Extremities: No significant edema Neuro: No focal deficits Psych: Cooperative, normal mood, oriented x 3 Results & Data Results & Data Vital Signs (Past 12 Hours) Vital Signs Temp Pulse Resp BP Pulse Ox O2 Del Method 12/14/24 08:24 36.6 C 73 16 131/82 92 Room Air Diagnostic Findings Reviewed imaging, laboratory and diagnostic studies. Pertinent findings as below. CBC, stable BMP reviewed, stable Creatinine 1.50, baseline Magnesium 1.6 Urine culture pending (2) Urinary tract infection Hematuria presence: without hematuria Urinary tract infection type: site unspecified Qualified Code(s): N39.0 - Urinary tract infection, site not specified (7) CKD (chronic kidney disease), stage III Chronic kidney disease stage 3 subtype: unspecified whether 3a or 3b Qualified Code(s): N18.30 - Chronic kidney disease, stage 3 unspecified
[2024-12-14] MEDS: ERTAPENEM 1000MG 1,000 MG/10 ML SYR IV SCH (12:51)
[2024-12-14] MEDS: PATIROMER CALCIUM SORBITEX 8.4 GM PACK PO SCH (18:22)
[2024-12-14 22:44] VITALS: O2SAT 94
[2024-12-15 08:31] VITALS: TEMP 98.1
--- NOTE | 2024-12-15 11:04 | Discharge Summary ---
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 coli in her urine. Patient was admitted for IV antibiotics. She was started on ertapenem. The reasoning for treating her was that when she had presented to the outside facility apparently she was having some increased confusion and she had a slightly elevated white blood cell count. Here at [facility] her white blood cell count was normal. She did not appear to be overly encephalopathic. The following day she was oriented x 3. She was tolerating the antibiotics. We are able to get sensitivities from the outside facility. The ESBL E. coli is sensitive to the Bactrim. Patient feels as though she has had this before. There is no history of an allergy to Bactrim. In conversation with the and family at the bedside later on the day prior to discharge it does seem as though the patient has some memory issues. There may be some times where she has some behavioral issues. I got the sense that they are experiencing some early cognitive impairment most likely due to Alzheimer's disease. Nurse on the day of discharge said early this morning she seemed a bit confused, however at time my evaluation she was oriented x 3 addition to knowing the president. Vital signs are stable. Other laboratory studies are stable. She received 3 doses of ertapenem here in the hospital. She continued other 3 days of Bactrim. With that being said I am highly suspicious that the patient may be colonized with the ESBL E. coli. She had this in her urine over a year ago. I am not overly convinced that she was truly symptomatic from this when she presented to an outside facility. However we will complete a course of treatment at this time, however the future need to really consider whether this is chronic colonization and any of her confusion is attributable to anything other than a urinary tract infection most notably waxing and waning of progressing cognitive impairment. During her hospitalization her blood pressure was slightly elevated. Losartan and Norvasc was increased Notes For Next Care Provider High suspicion that patient is having progressive cognitive impairment most likely due to Alzheimer's. Medication Changes From Visit Bactrim for 3 days Norvasc increased for blood pressure control Losartan increased for blood pressure control Admission HPI Per Admitting Provider Ms. Francisco is an 89 year old woman with past medical history remarkable for anemia of chronic disease, CKD III, HTN, DMTII, prior ESBL presented to [facility] ED due to abnormal labs as an outpatient. Patient has presented to [facility] and due to intermittent confusion on going in last week. Work up at [facility] was initially negative, however, at urine culture noted ESBL on culture. Patient was contacted and advised to present to ED. She does report increased urinary frequency and pressure. She reports some slowness in her cognition in the mornings; at bedside and agrees that she has had a few more episodes of confusion in recent days. Patient is alert and oriented to self, city/state/hospital, situation, notes that year is "maybe 2022 or 2023"--otherwise very engaged and observant of surroundings. She denies any bowel issues, fevers, chills, chest pain, nausea, or vomiting. She denies any falls. She ambulates with a walker or cane depending on what her activity is. She denies any etoh use, tobacco use, or illicits. Patient with prior history of esbl infection requiring short course of IV abx in 12/2023 Labs with stable anemia of 11.3, cr. 1.59 (baseline 1.4-1.59) AST 45 (intermittent elevations historicallly), UA suspicious for infection with 4+bacteria, WBC and LE + In the ED, vitals were notable for BP of 130s-160s, HR of 80s, and O2 sat of mid-high 90s on room air and afebrile No imaging indicated ED interventions: junie Patient to be admitted to med surg for further evaluation and management of ESBL UA. Records from have been requested Admission Exam Per Admitting Provider See H&P Discharge Exam Constitutional: Alert, nontoxic HEENT: Mucous membranes moist. Lungs: Clear to auscultation, decreased, no wheezes rales or rhonchi CV: S1-S2, regular Abdomen: Soft, nontender, nondistended Extremities: No significant edema Neuro: No focal deficits Psych: Cooperative, normal mood, oriented to person, place, president, time Updated Medication List Medication Instructions Recorded Confirmed Type aspirin 81 mg tablet,delayed 81 mg PO DAILY 06/20/24 12/13/24 History release dulaglutide 0.75 mg/0.5 mL 0.75 mg subcut WK 06/20/24 12/13/24 History subcutaneous pen injector (Trulicity) ferrous sulfate 325 mg (65 mg 325 mg PO DAILY 06/20/24 12/13/24 History iron) tablet levothyroxine 75 mcg tablet 75 mcg PO DAILYBB 06/20/24 12/13/24 History Lactobacil.acidophilus-Bifido.animalis 1 cap PO DAILY 09/10/24 12/13/24 History 5 billion cell sprinkle capsule (Probiotic) biotin 1 mg tablet 1 mg PO DAILY 09/10/24 12/13/24 History cholecalciferol (vitamin D3) 25 25 mcg PO DAILY 09/10/24 12/13/24 History mcg (1,000 unit) capsule (Vitamin D3) epoetin lou 10,000 unit/mL 10,000 unit subcut MONTHLY PRN IF 09/10/24 12/13/24 History injection solution (Procrit) NEEDED PER PT/MD psyllium husk 0.4 gram capsule 0.4 g PO Q OTHER DAY 09/10/24 12/13/24 History (Metamucil) amlodipine 5 mg tablet 5 mg DAILY 12/13/24 12/13/24 History patiromer calcium sorbitex 8.4 8.4 g PO Q OTHER DAY 12/13/24 12/13/24 History gram oral powder packet (Veltassa) amlodipine 5 mg tablet 10 mg (2 x 5 mg) PO DAILY #30 tabs 12/15/24 Rx losartan 50 mg tablet 100 mg (2 x 50 mg) PO DAILY #60 12/15/24 Rx tabs sulfamethoxazole 400 1 tab PO DAILY #3 tabs 12/15/24 Rx mg-trimethoprim 80 mg tablet (Bactrim) Hospital Stay Data Consultations 12/13/24 11:18 ED Decision to Admit Stat Diagnostic Imagining Performed Reviewed imaging, laboratory and diagnostic studies. Pertinent findings as below. Repeat urine culture grew out ESBL E. coli sensitive to Bactrim and ertapenem Outside hospital urine culture grew the same Magnesium 1.7 WBCs 5.8 Creatinine 1.5 Pending Results Patient Have Any Pending Studies at Discharge: No Discharge Instructions Given to Patient (Per Discharging Provider) Complete course of oral antibiotics Highly suspect he may be colonized with this ESBL, would only consider treating you with antibiotics in the future if you became extremely sick with fever, s everely elevated WBCs, severe weakness or severe encephalopathy. Your blood pressure was running high here, we adjusted some your blood pressure medication dosages. Based on conversation with your family, suspect you are has started to have some issues with memory. This will fluctuate throughout the days. This could explain why some days you feel little bit weaker or feel like you are a little bit more confused. Recommend you discuss with your PCP any further testing or treatments for this. Total Time Total Time Spent Total Time Spent (In Minutes): 33
[2024-12-15 11:35] VITALS: BP 193/97; PULSE 75
== END 2024-12-15 12:19 | disposition home or self-care (01) | DRG 689 ==
LOC: ED 10:48 → SUATTDRO 11:50 → 3E 11:50

== ENCOUNTER 2025-02-20 16:03 | Observation (INO) ==
[2025-02-20 17:34] LABS: Hematocrit (blood only) 33.1 % (37.0-47.0); Hemoglobin 10.9 g/dl (12.0-16.0); Immature Granulocytes # (auto) 0.01 K/uL (0.01-0.20); Immature Granulocytes % (auto) 0.2 %; Mean Corpuscular Hemoglobin 29.2 pg (25.0-34.0); Mean Corpuscular Volume 88.7 fL (80.0-100.0); Platelet Count 197 K/uL (130-400); RDW Standard Deviation 43.8 fL (36.4-46.3); Red Blood Count 3.73 M/uL (4.20-5.40); White Blood Count 6.10 K/ul (4.8-10.8)
[2025-02-20 17:41] LABS: Appearance Urine Clear (Clear); Bacteria Urine Automated None Seen (None Seen); Cast Urine Automated 0-2 /lpf (0-2); Glucose Urine UA Negative (Negative); RBC Urine Automated 0-2 /hpf (0-2); WBC Urine Automated 0-5 /hpf (0-5)
[2025-02-20 17:51] LABS: Alanine Aminotransferase 95.0 U/L (7-52); Albumin Globulin Ratio 1.2 (0.9-2); Albumin Level 4.1 gm/dl (3.4-5.0); Alkaline Phosphatase 66.0 U/L (34-104); Anion Gap 10.0 (3-11); Bilirubin,Total 0.7 mg/dl (0.2-1.0); Blood Urea Nitrogen 31.0 mg/dl (6-23); Calcium 10.2 mg/dl (8.6-10.3); Carbon Dioxide 24.0 mmol/L (21-32); Chloride 104.0 mmol/L (98-107); Creatinine Clr Calc Pharmacy 14.6 ml/min; Globulin 3.5 gm/dl (2.5-4.0); Glucose 111.0 mg/dl (70-99(Fasting)); Potassium 4.4 mmol/L (3.5-5.1); Sodium 138.0 mmol/L (136-145); Total Protein 7.6 gm/dl (6.0-8.3)
[2025-02-20 18:30] LABS: Chlamydia pneumoniae PCR Not Detected (NotDetected); Coronavirus 229E PCR Not Detected (NotDetected); Coronavirus CoV-2 (COVID19)PCR Not Detected (NotDetected); Coronavirus HKU1 PCR Not Detected (NotDetected); Coronavirus NL63 PCR Not Detected (NotDetected); Coronavirus OC43PCR Not Detected (NotDetected); Human Metapneumovirus PCR Not Detected (NotDetected); Parainfluenza Virus 1 PCR Not Detected (NotDetected); Parainfluenza Virus 2 PCR Not Detected (NotDetected); Parainfluenza Virus 3 PCR Not Detected (NotDetected); Parainfluenza Virus 4 PCR Not Detected (NotDetected); Respiratory Syncytial VirusPCR Not Detected (NotDetected); Rhinovirus/Enterovirus PCR Not Detected (NotDetected)
--- NOTE | 2025-02-20 19:27 | Emergency Department Note ---
Impression & Plan Weakness, Acute kidney injury, Flu-like symptoms, Medication reaction ED Provider Note NAME: KELLI ALBRIGHT AGE: 89 SEX: F : 1935 ARRIVES VIA: Walk-In INFORMANT: [Patient][family] ED PROVIDER(S): [Garry Haider MD] CHIEF COMPLAINT: Illness HISTORY OF PRESENT ILLNESS: Patient is an 89-year-old female who a few days ago was diagnosed with a UTI. She was given Bactrim. Since starting the Bactrim, she has been feeling quite a bit worse. She has no appetite, she is quite weak. She feels chilled and nauseated. There has been no vomiting. No urinary burning. No diarrhea. She does not have any chest pain or real abdominal pain, there has been no fever. PMHx/PSHx/Social Hx: See Below PHYSICAL EXAM: GENERAL: Patient is in no acute distress. HEENT: No acute trauma, normocephalic atraumatic, mucous membranes moist, no nasal congestion. NECK: No stridor, no adenopathy, no meningismus, trachea is midline. LUNGS: Clear to auscultation bilaterally, no wheeze, no rhonchi, breath sounds equal. HEART: Without murmurs gallops or rubs, regular rate and rhythm. Heart tones are quite distant. ABDOMEN: Soft, nontender, no peritonitis. EXTREMITIES: No cyanosis, full range of motion of all the joints without pain or difficulty. NEUROLOGIC: Oriented x 3, no acute motor or sensory deficits, no focal weakness. SKIN: No jaundice, no diaphoresis. DIFFERENTIAL DIAGNOSIS: Medication reaction, dehydration, UTI, urinary obstruction, pneumonia, anemia, cardiac ischemia, among others. EMERGENCY DEPARTMENT PROCEDURES: MEDICAL DECISION MAKING: There is no leukocytosis. The patient does have an anemia with a hemoglobin of 10.9. The anemia appears baseline looking back at previous testing. There was a normal platelet count. No bandemia. Creatinine was quite high at 2.8, consistent with acute kidney injury/dehydration. There were some very subtle liver enzyme elevations, the bilirubin was normal. ECG shows a sinus rhythm, no obvious ST elevation. Cardiac enzyme testing x 1 is not consistent with acute cardiac injury. Urinalysis does not show findings of infection. Total CK is not elevated making rhabdomyolysis unlikely. Respiratory BioFire was negative. Chest x-ray does not show pneumonia or CHF. Abdominal and pelvis CT shows some potential cystitis but there was no urinary obstruction or acute surgical pathology. The patient presents with weakness and flulike symptoms. She appears to have acute kidney injury, likely from the Bactrim she was prescribed. The patient was given IV Pepcid, IV Zofran and IV saline. Given her findings, given the acute kidney injury, admission is warranted. I spoke with the patient and the family, I spoke with case management. The on- call hospitalist was consulted. Prior/Outside records/notes reviewed: None ECG per my interpretation: Indication was weakness. The ECG shows a normal sinus rhythm with a rate of 81. There is some subtle ST depression seen in the lateral leads. There is no ST elevation, no PVCs. The QTc is 376 compared to an ECG from 27 November 2024, the ST and T wave changes actually appear improved. Continuous Cardiac Monitoring per my interpretation: An order was placed for continuous cardiac monitoring. The monitor shows a rate of 83 with normal sinus rhythm. Imaging/x-ray results per my interpretation: Chest x-ray shows some left base atelectasis, no CHF or pneumonia. Chronic Medical/Social conditions affecting care: Advanced age. Care/Management discussed with: Case management, the on-call hospitalist. Level of care consideration(s): After review of the information above and other included data: --I believe the patient requires escalation of care to admission DISPOSITION: Admission Past Med/Surg History Problem List Medication reaction (Acute) Flu-like symptoms (Acute) Acute kidney injury (Acute) Weakness (Acute) Mild cognitive impairment (MCI) due to Alzheimer's disease Abdominal pain (Acute) Weakness (Acute) ESBL (extended spectrum beta-lactamase) producing bacteria infection (Acute) Abnormal ECG (Acute) NSTEMI (non-ST elevated myocardial infarction) Hypertension (Acute) Abdominal discomfort (Acute) Generalized weakness Hypomagnesemia (Acute) Diverticulitis (Acute) Diverticulitis of sigmoid colon (Acute) Acute metabolic encephalopathy Acute alteration in mental status (Acute) Urinary tract infection (Acute) Abnormal LFTs (Acute) SOL (acute kidney injury) (Acute) Hypomagnesemia (Acute) Generalized weakness (Acute) Hypomagnesemia (Acute) Generalized weakness (Acute) Elevated troponin (Acute) Chest pain (Acute) Decreased appetite Generalized weakness Elevated troponin Chronic anemia Chest pain (Acute) Abnormal EKG (Acute) Chronic RLQ pain Basal cell carcinoma of skin of ankle (Acute) Left knee DJD (Acute) Lichen sclerosus et atrophicus (Acute) Myelodysplastic syndrome (Acute) Right knee DJD (Acute) Urge and stress incontinence (Acute) Low back pain DVT prophylaxis Abnormal ECG Pernicious anemia DORIS on CPAP Hypothyroidism GERD (gastroesophageal reflux disease) Dyslipidemia DM type 2 (diabetes mellitus, type 2) (Acute) CKD (chronic kidney disease), stage III (Acute) Anemia due to chronic kidney disease Substernal chest pain (Acute) Chest pain (Acute) Medical History Elevated troponin Chest pain Abdominal pain, LLQ (left lower quadrant) HTN (hypertension) CKD (chronic kidney disease) Complicated UTI (urinary tract infection) History of ESBL E. coli infection Hypertensive urgency IgM lambda paraproteinemia Surgical History History of gynecologic surgery anterior colporrhaphy History of hysteroscopy Status post tubal ligation History of total bilateral knee replacement (TKR) History of knee surgery History of appendectomy History of dilation and curettage S/P cholecystectomy Family History Mother , 85 Heart disease Diabetes Father , 65 Pancreatic cancer Sister Uterine cancer Breast cancer Denies family history of Ovarian cancer Colorectal cancer Social History Smoking Status: Former smoker Tobacco Type: Cigarettes Second Hand Exposure: No; Do You Dip or Chew Tobacco: No; Hx Alcohol Use: No Hx Substance Use: No Preferred Language: Mauritian Communication Ability: Effective Turkish Line Attendant Required: No Beliefs That Will Affect Care: None marital status: Current Living Situation: Spouse Current Living Situation Comment: at home current occupational status: retired Feels Safe at Home: Yes Assistive Devices: Cane and Walker Allergies Allergies Allergy/AdvReac Type Severity Reaction Status Date / Time corn Allergy Severe Diarrhea Verified 11/27/24 10:46 ciprofloxacin Allergy Intermediate RASH Verified 11/27/24 10:46 BENEDICT Inhibitors AdvReac Intermediate COUGH Verified 11/27/24 10:46 metformin AdvReac Intermediate GI SYMPTOMS Verified 11/27/24 10:46 sulfamethoxazole AdvReac Intermediate arf ckd Verified 02/20/25 20:45 [From Bactrim] trimethoprim [From Bactrim] AdvReac Intermediate arf ckd Verified 02/20/25 20:45 Home Meds Home Medications Medication Instructions Recorded Confirmed aspirin 81 mg tablet,delayed 81 mg PO DAILY 06/20/24 02/20/25 release dulaglutide 0.75 mg/0.5 mL 0.75 mg subcut WK 06/20/24 02/20/25 subcutaneous pen injector (Trulicity) ferrous sulfate 325 mg (65 mg 325 mg PO DAILY 06/20/24 02/20/25 iron) tablet levothyroxine 75 mcg tablet 75 mcg PO DAILYBB 06/20/24 02/20/25 Lactobacil.acidophilus-Bifido.animalis 1 cap PO DAILY 09/10/24 02/20/25 5 billion cell sprinkle capsule (Probiotic) biotin 1 mg tablet 1 mg PO DAILY 09/10/24 02/20/25 cholecalciferol (vitamin D3) 25 25 mcg PO DAILY 09/10/24 02/20/25 mcg (1,000 unit) capsule (Vitamin D3) epoetin lou 10,000 unit/mL 10,000 unit subcut MONTHLY PRN IF 09/10/24 02/20/25 injection solution (Procrit) NEEDED PER PT/MD psyllium husk 0.4 gram capsule 0.4 g PO Q OTHER DAY 09/10/24 02/20/25 (Metamucil) patiromer calcium sorbitex 8.4 8.4 g PO Q OTHER DAY 12/13/24 02/20/25 gram oral powder packet (Veltassa) triamcinolone acetonide 0.1 % 1 applic topical BID PRN Rash 02/20/25 02/20/25 topical cream Previous Rx's Medication Instructions Recorded amlodipine 5 mg tablet 10 mg (2 x 5 mg) PO DAILY #30 tabs 12/15/24 losartan 50 mg tablet 100 mg (2 x 50 mg) PO DAILY #60 12/15/24 tabs sulfamethoxazole 400 1 tab PO DAILY #3 tabs 12/15/24 mg-trimethoprim 80 mg tablet (Bactrim) Results & Data (ED) Vital Signs Vital Signs - 24 hr 02/20/25 16:30 02/20/25 20:02 Temperature 37 C Temperature Source Temporal Artery Scan Pulse Rate 83 Pulse Rate [Apical] 69 Pulse Rhythm [Apical] Regular Respiratory Rate 18 16 Respiratory Effort / Characteristics Non-Labored Spontaneous Non-Labored Spontaneous Respiratory Depth Normal Normal Respiratory Pattern Regular Regular Blood Pressure 135/72 Blood Pressure [Left Arm] 121/68 Blood Pressure Mean 93 Blood Pressure Mean [Left Arm] 85 Blood Pressure Position [Left Arm] Semi-fowlers Pulse Oximetry 96 96 Oxygen Delivery Method Room Air Room Air Sepsis Recent Fever Within 48 Hours No Sepsis New/Unexplained Change in Mental Status No Sepsis Action Taken by Nursing No Action Required Home Medications Current Medication List: was personally reviewed by me Laboratory Data Attestation: I reviewed the patient's lab results. 02/20/25 17:21 02/20/25 17:21 Lab Results 02/20/25 02/20/25 Range/Units 17:21 17:23 WBC 6.10 (4.8-10.8) K/ul RBC 3.73 L (4.20-5.40) M/uL Hgb 10.9 L (12.0-16.0) g/dl Hct 33.1 L (37.0-47.0) % MCV 88.7 (80.0-100.0) fL MCH 29.2 (25.0-34.0) pg MCHC 32.9 (32.0-36.0) g/dL RDW Std Deviation 43.8 (36.4-46.3) fL RDW Coeff of Elpidio 13.5 (11.5-14.5) % Plt Count 197 (130-400) K/uL MPV 10.2 (9.4-12.4) fL Immature Gran % (Auto) 0.2 % Neut % (Auto) 53.5 % Lymph % (Auto) 28.2 % [place] % (Auto) 13.1 % Eos % (Auto) 3.9 % Baso % (Auto) 1.1 % Neut # (Auto) 3.26 (1.40-6.50) K/uL Lymph # (Auto) 1.72 (1.20-3.40) K/uL [place] # (Auto) 0.80 H (0.11-0.59) K/uL Eos # (Auto) 0.24 (0.00-0.50) K/uL Baso # (Auto) 0.07 (0.00-0.20) K/uL Immature Gran # (Auto) 0.01 (0.01-0.20) K/uL Sodium 138 (136-145) mmol/L Potassium 4.4 (3.5-5.1) mmol/L Chloride 104 (98-107) mmol/L Carbon Dioxide 24 (21-32) mmol/L Anion Gap 10 (3-11) BUN 31 H (6-23) mg/dl Creatinine 2.80 H (0.6-1.2) mg/dl Est Cr Clr Drug Dosing 14.6 ml/min eGFR 15.85 BUN/Creatinine Ratio 11.1 (10-20) Glucose 111 H (70-99(Fasting)) mg/dl Calcium 10.2 (8.6-10.3) mg/dl Magnesium 2.0 (1.7-2.4) mg/dl Total Bilirubin 0.7 (0.2-1.0) mg/dl AST 73 H (13-39) U/L ALT 95 H (7-52) U/L Alkaline Phosphatase 66 (34-104) U/L Total Creatine Kinase 81 (26-192) U/L Troponin I High Sens 11.5 (0-14) pg/ml Total Protein 7.6 (6.0-8.3) gm/dl Albumin 4.1 (3.4-5.0) gm/dl Globulin 3.5 (2.5-4.0) gm/dl Albumin/Globulin Ratio 1.2 (0.9-2) Urine Color Yellow Urine Appearance Clear (Clear) Urine pH 5.5 (4.5-7.5) Ur Specific [place] 1.015 (1.000-1.030) Urine Protein 1+ H (Negative) Urine Glucose (UA) Negative (Negative) Urine Ketones Negative (Negative) Urine Blood Negative (Negative) Urine Nitrite Negative (Negative) Urine Bilirubin Negative (Negative) Urine Urobilinogen Negative (Negative) Ur Leukocyte Esterase Negative (Negative) Urine WBC (Auto) 0-5 (0-5) /hpf Urine RBC (Auto) 0-2 (0-2) /hpf U Hyaline Cast (Auto) 0-2 (0-2) /lpf U Epithel Cells (Auto) 3-5 H (0-2) /hpf Urine Bacteria (Auto) None Seen (None Seen) Urine Comment Adenovirus (PCR) Not Detected (NotDetected) B. pertussis DNA (PCR) Not Detected (NotDetected) B.parapertussis DNA PCR Not Detected (NotDetected) Lyme Disease Screen Negative (Negative) C. pneumoniae DNA (PCR) Not Detected (NotDetected) Coronavirus OC43 (PCR) Not Detected (NotDetected) Coronavirus HKU1 (PCR) Not Detected (NotDetected) Coronavirus 229E (PCR) Not Detected (NotDetected) SARS-CoV-2 (PCR) Not Detected (NotDetected) Coronavirus NL63 (PCR) Not Detected (NotDetected) Human Metapneumovir PCR Not Detected (NotDetected) Influenza Type A (PCR) Not Detected (NotDetected) Influenza Type B (PCR) Not Detected (NotDetected) M. pneumoniae (PCR) Not Detected (NotDetected) Parainfluenza 1 (PCR) Not Detected (NotDetected) Parainfluenza 2 (PCR) Not Detected (NotDetected) Parainfluenza 3 (PCR) Not Detected (NotDetected) Parainfluenza 4 (PCR) Not Detected (NotDetected) RSV (PCR) Not Detected (NotDetected) Entero/Rhino (PCR) Not Detected (NotDetected) Administered Medications Discontinued Medications Sodium Chloride (Nss) 1,000 mls @ 999 mls/hr IV .Q1H1M ONE Stop: 02/20/25 20:24 Last Admin: 02/20/25 19:57 Dose: 999 mls/hr Documented By: JOE Famotidine (Pepcid 20mg Iv Push) 20 mg in 5 mls @ 2.5 mls/min IV NOW STA Stop: 02/20/25 19:25 Last Admin: 02/20/25 19:56 Dose: 2.5 mls/min Documented By: JOE Ondansetron HCl (Ondansetron Inj 2 Mg/Ml 2 Ml Vial) 4 mg IV NOW STA Stop: 02/20/25 19:25 Last Admin: 02/20/25 19:56 Dose: 4 mg Documented By: JOE Imaging Data Radiologist's Impression: Abdomen/Pelvis CT 02/20/25 19:27 CT ABDOMEN and PELVIS without INTRAVENOUS CONTRAST HISTORY: Abdominal pain TECHNIQUE: CT abdomen and pelvis without contrast. IV CONTRAST: None ENTERIC CONTRAST: None. COMPARISON: CT abdomen and pelvis September 10, 2024 FINDINGS: LOWER CHEST: Left basilar atelectasis LIVER: No focal lesion identified in this noncontrast study. GALLBLADDER/BILIARY: Surgically absent gallbladder. No abnormal biliary dilatation. SPLEEN: Unremarkable. PANCREAS: Unremarkable. ADRENALS: Unremarkable. KIDNEYS: Cortical cysts. No stones or hydronephrosis identified. PERITONEUM/RETROPERITONEUM. No lymphadenopathy by size criteria. No aortic aneurysm. Mild atherosclerosis. GASTROINTESTINAL: No obstruction. Colonic diverticulosis without evidence of diverticulitis. REPRODUCTIVE: No suspicious pelvic masses identified. URINARY BLADDER: Mild inflammatory changes with wall thickening BONES: No acute findings. IMPRESSION: No evidence of urinary obstruction. The urinary bladder is decompressed. No urolithiasis, hydronephrosis or hydroureter. There are mild inflammatory changes of the urine the bladder which could be due to cystitis. Electronically signed by Hermann Patel 02-20-2025 8:35 PM Chest X-Ray 02/20/25 19:27 EXAM: X-ray chest one-view portable CLINICAL HISTORY: Abdominal pain PRIORS: 11/27/2024 TECHNIQUE: Frontal view chest FINDINGS: The chest is well-expanded. No airspace consolidation, effusion or congestive changes. Heart size is top normal. No pneumothorax. Trachea is patent. Osseous structures demonstrate no acute abnormality. Chronic appearance of right humeral neck fracture. No radiopaque foreign body. Atherosclerotic disease of the aortic knob. IMPRESSION: No plain film evidence of an acute cardiopulmonary process. Electronically signed by Katharine Angeles 02-20-2025 8:08 PM Discharge Plan Visit Data Chief Complaint: Illness Stated Complaint: ILLNESS, COLD ED Provider: Garry Haider Discharge Problem: Weakness, Acute kidney injury, Flu-like symptoms, Medication reaction Patient Disposition: Admitted As Inpatient Condition: Fair Forms Stand Alone Forms: My [facility] [employer] Prescriptions Prescriptions: No Action aspirin 81 mg Tablet,Delayed Release (Dr/Ec) 81 mg PO DAILY levothyroxine 75 mcg tablet 75 mcg PO DAILYBB ferrous sulfate 325 mg (65 mg iron) Tablet 325 mg PO DAILY Trulicity 0.75 mg/0.5 mL pen injector 0.75 mg SUBCUT WK Rx Instructions: MONDAYS Procrit 10,000 unit/mL Solution 10,000 unit subcut MONTHLY PRN (Reason: IF NEEDED PER PT/MD) cholecalciferol (vitamin D3) [Vitamin D3] 25 mcg (1,000 unit) Capsule 25 mcg PO DAILY biotin 1 mg Tablet 1 mg PO DAILY Probiotic 5 billion cell Capsule, Sprinkle 1 cap PO DAILY psyllium husk [Metamucil] 0.4 gram Capsule 0.4 g PO Q OTHER DAY Veltassa 8.4 gram powder in packet 8.4 g PO Q OTHER DAY amlodipine 5 mg Tablet 10 mg PO DAILY Qty: 30 0RF sulfamethoxazole-trimethoprim [Bactrim] 400-80 mg tablet 1 tab PO DAILY Qty: 3 0RF Rx Instructions: start 12/16/24 losartan 50 mg tablet 100 mg PO DAILY Qty: 60 0RF triamcinolone acetonide 0.1 % cream 1 applic TOPICAL BID PRN (Reason: Rash) Referrals Referrals: Milton Balderas MD [Primary Care Provider] - Discharge Problem: Medication reaction Qualifiers: Encounter type: initial encounter Qualified Code(s): T50.905A - Adverse effect of unspecified drugs, medicaments and biological substances, initial encounter
[2025-02-20] MEDS: ONDANSETRON INJ 2 MG/ML 2 ML VIAL IV STA (19:56)
[2025-02-20] MEDS: FAMOTIDINE 20MG IV PUSH 20 MG/5 ML SYR IV STA (19:56)
[2025-02-20] MEDS: SODIUM CHLORIDE 0.9% 1,000 ML IV ONE ×2 (19:57→22:13)
--- NOTE | 2025-02-20 20:08 | XRay Report ---
EXAM: X-ray chest one-view portable CLINICAL HISTORY: Abdominal pain PRIORS: 11/27/2024 TECHNIQUE: Frontal view chest FINDINGS: The chest is well-expanded. No airspace consolidation, effusion or congestive changes. Heart size is top normal. No pneumothorax. Trachea is patent. Osseous structures demonstrate no acute abnormality. Chronic appearance of right humeral neck fracture. No radiopaque foreign body. Atherosclerotic disease of the aortic knob. IMPRESSION: No plain film evidence of an acute cardiopulmonary process. Electronically signed by Katharine Angeles 02-20-2025 8:08 PM
[2025-02-20 20:14] LABS: Creatine Kinase 81.0 U/L (26-192); Magnesium 2.0 mg/dl (1.7-2.4)
--- NOTE | 2025-02-20 20:36 | CT Scan Report ---
CT ABDOMEN and PELVIS without INTRAVENOUS CONTRAST HISTORY: Abdominal pain TECHNIQUE: CT abdomen and pelvis without contrast. IV CONTRAST: None ENTERIC CONTRAST: None. COMPARISON: CT abdomen and pelvis September 10, 2024 FINDINGS: LOWER CHEST: Left basilar atelectasis LIVER: No focal lesion identified in this noncontrast study. GALLBLADDER/BILIARY: Surgically absent gallbladder. No abnormal biliary dilatation. SPLEEN: Unremarkable. PANCREAS: Unremarkable. ADRENALS: Unremarkable. KIDNEYS: Cortical cysts. No stones or hydronephrosis identified. PERITONEUM/RETROPERITONEUM. No lymphadenopathy by size criteria. No aortic aneurysm. Mild atherosclerosis. GASTROINTESTINAL: No obstruction. Colonic diverticulosis without evidence of diverticulitis. REPRODUCTIVE: No suspicious pelvic masses identified. URINARY BLADDER: Mild inflammatory changes with wall thickening BONES: No acute findings. IMPRESSION: No evidence of urinary obstruction. The urinary bladder is decompressed. No urolithiasis, hydronephrosis or hydroureter. There are mild inflammatory changes of the urine the bladder which could be due to cystitis. Electronically signed by Hermann Patel 02-20-2025 8:35 PM
[2025-02-20] MEDS ORDERED: ACETAMINOPHEN 500 MG TAB PO PRN (20:43)
[2025-02-20] MEDS ORDERED: PROMETHAZINE 6.25 MG/50.25 ML BAG IV PRN (20:43)
[2025-02-20] MEDS: HEPARIN SOD 5,000 UNIT/0.5 ML VIAL SQ SCH (21:25)
--- NOTE | 2025-02-20 21:40 | History & Physical Report ---
Date of Service February 20, 2025 Assessment & Plan (1) Weakness: Plan: Assessment and plan below following discussion of case with ED provider and reviewing patient history/pertinent normal/abnormal diagnostic test results. Generalized weakness ARF on CKD Possible Bactrim adverse reaction in an elderly patient hx PSVT mild MR hypertension, stable DORIS on CPAP MASLD DM2 on oral medications, reasonable control as of recent hemoglobin A1c of 7.2 from November 2024 hypothyroidism, euthyroid as of recent TSH chronic anemia, hemoglobin at baseline dementia, mentation at baseline past tobacco abuse OBS Admit to medical Stop Bactrim and add to ADR list Monitor creatinine response to IVF Nephrology consult if without improvement ISS BG goal 1 10-1 40, carb count coverage PT OT eval DVT prophylaxis with Heparin subcu Full code Patient requesting updates from providers. Mr. Margarito Francisco, contact #[phone]. Text document was generated using [employer] voice recognition software. It may contain grammatical or spelling errors. Kindly contact undersigned for clarification of any documentation item in question. History of Present Illness Chief Complaint: Generalized weakness Primary Care Provider: Milton Balderas MD History obtained from patient and records. Medical history significant for PSVT, mild MR, hypertension, DORIS on CPAP, GERD, diverticulitis, MASLD, DM2 on oral medications, hypothyroidism, CRI (baseline creatinine 1.5), chronic anemia (baseline hemoglobin 9-10), dementia, skin cancer as per records, ESBL E. coli as per records, past tobacco abuse. Recent confinement last month for metabolic encephalopathy secondary to compl icated UTI secondary to ESBL. Patient seen at urgent care center last week for high blood sugar of 300s at home. Denies headache, chest pain, SOB, abdominal pain or urinary symptoms. BSG 250s at clinic. UA grew ESBL E. coli 10,000 200,000 colonies per mL. Patient prescribed outpatient Bactrim course. Patient noted generalized weakness after starting medication. Some nausea symptoms. No fever, no chills. No abdominal pain. Poor appetite. 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 Allergies Allergy/AdvReac Type Severity Reaction Status Date / Time corn Allergy Severe Diarrhea Verified 11/27/24 10:46 ciprofloxacin Allergy Intermediate RASH Verified 11/27/24 10:46 BENEDICT Inhibitors AdvReac Intermediate COUGH Verified 11/27/24 10:46 metformin AdvReac Intermediate GI SYMPTOMS Verified 11/27/24 10:46 sulfamethoxazole AdvReac Intermediate arf ckd Verified 02/20/25 20:45 [From Bactrim] trimethoprim [From Bactrim] AdvReac Intermediate arf ckd Verified 02/20/25 20:45 Home Medications Medication Instructions Recorded Confirmed Type aspirin 81 mg tablet,delayed 81 mg PO DAILY 06/20/24 02/20/25 History release dulaglutide 0.75 mg/0.5 mL 0.75 mg subcut WK 06/20/24 02/20/25 History subcutaneous pen injector (Trulicity) ferrous sulfate 325 mg (65 mg 325 mg PO DAILY 06/20/24 02/20/25 History iron) tablet levothyroxine 75 mcg tablet 75 mcg PO DAILYBB 06/20/24 02/20/25 History Lactobacil.acidophilus-Bifido.animalis 1 cap PO DAILY 09/10/24 02/20/25 History 5 billion cell sprinkle capsule (Probiotic) biotin 1 mg tablet 1 mg PO DAILY 09/10/24 02/20/25 History cholecalciferol (vitamin D3) 25 25 mcg PO DAILY 09/10/24 02/20/25 History mcg (1,000 unit) capsule (Vitamin D3) epoetin lou 10,000 unit/mL 10,000 unit subcut MONTHLY PRN IF 09/10/24 02/20/25 History injection solution (Procrit) NEEDED PER PT/MD psyllium husk 0.4 gram capsule 0.4 g PO Q OTHER DAY 09/10/24 02/20/25 History (Metamucil) patiromer calcium sorbitex 8.4 8.4 g PO Q OTHER DAY 12/13/24 02/20/25 History gram oral powder packet (Veltassa) amlodipine 5 mg tablet 10 mg (2 x 5 mg) PO DAILY #30 tabs 12/15/24 02/20/25 Rx losartan 50 mg tablet 100 mg (2 x 50 mg) PO DAILY #60 12/15/24 02/20/25 Rx tabs sulfamethoxazole 400 1 tab PO DAILY #3 tabs 12/15/24 02/20/25 Rx mg-trimethoprim 80 mg tablet (Bactrim) triamcinolone acetonide 0.1 % 1 applic topical BID PRN Rash 02/20/25 02/20/25 History topical cream Past Med/Surg History Problem List Medication reaction (Acute) Flu-like symptoms (Acute) Acute kidney injury (Acute) Weakness (Acute) Mild cognitive impairment (MCI) due to Alzheimer's disease Abdominal pain (Acute) Weakness (Acute) ESBL (extended spectrum beta-lactamase) producing bacteria infection (Acute) Abnormal ECG (Acute) NSTEMI (non-ST elevated myocardial infarction) Hypertension (Acute) Abdominal discomfort (Acute) Generalized weakness Hypomagnesemia (Acute) Diverticulitis (Acute) Diverticulitis of sigmoid colon (Acute) Acute metabolic encephalopathy Acute alteration in mental status (Acute) Urinary tract infection (Acute) Abnormal LFTs (Acute) SOL (acute kidney injury) (Acute) Hypomagnesemia (Acute) Generalized weakness (Acute) Hypomagnesemia (Acute) Generalized weakness (Acute) Elevated troponin (Acute) Chest pain (Acute) Decreased appetite Generalized weakness Elevated troponin Chronic anemia Chest pain (Acute) Abnormal EKG (Acute) Chronic RLQ pain Basal cell carcinoma of skin of ankle (Acute) Left knee DJD (Acute) Lichen sclerosus et atrophicus (Acute) Myelodysplastic syndrome (Acute) Right knee DJD (Acute) Urge and stress incontinence (Acute) Low back pain DVT prophylaxis Abnormal ECG Pernicious anemia DORIS on CPAP Hypothyroidism GERD (gastroesophageal reflux disease) Dyslipidemia DM type 2 (diabetes mellitus, type 2) (Acute) CKD (chronic kidney disease), stage III (Acute) Anemia due to chronic kidney disease Substernal chest pain (Acute) Chest pain (Acute) Medical History Elevated troponin Chest pain Abdominal pain, LLQ (left lower quadrant) HTN (hypertension) CKD (chronic kidney disease) Complicated UTI (urinary tract infection) History of ESBL E. coli infection Hypertensive urgency IgM lambda paraproteinemia Surgical History History of gynecologic surgery anterior colporrhaphy History of hysteroscopy Status post tubal ligation History of total bilateral knee replacement (TKR) History of knee surgery History of appendectomy History of dilation and curettage S/P cholecystectomy Family History Mother , 85 Heart disease Diabetes Father , 65 Pancreatic cancer Sister Uterine cancer Breast cancer Denies family history of Ovarian cancer Colorectal cancer Social History Smoking Status: Never smoker Tobacco Type: Cigarettes Second Hand Exposure: No; Do You Dip or Chew Tobacco: No; Tobacco Cessation Education Requested by Patient: No Hx Alcohol Use: No Hx Substance Use: No Preferred Language: Occitan Communication Ability: Unable Mathematics 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 Required: No Beliefs That Will Affect Care: None marital status: Current Living Situation: Spouse Current Living Situation Comment: at home current occupational status: retired Other Information That Helps Us Care for You: No Feels Safe at Home: Yes Safety Concerns: Feels Safe At This Time Assistive Devices: CPAP, Denture - Upper, Denture - Lower, Glasses and Walker Review of Systems Review of Systems: Could not be reliably obtained secondary to dementia Physical Exam Physical Exam: GENERAL: Demented, comfortable,, slightly hard of hearing, no respiratory distress SKIN: Pallor, warm HEENT: pale palpebral conjunctivae, no ptosis, dry buccal mucosa NECK : Supple, no tenderness CHEST : CTA, no tenderness HEART : RRR, no obvious murmurs ABDOMEN: Some distention, no hypogastric tenderness EXTREMITIES : Minimal LE swelling, no LE tenderness, no other conspicuous deformities noted NEUROLOGIC : Demented, no facial asymmetry, slightly hard of hearing, gait and stance not assessed Results & Data Results & Data Vital Signs (Past 12 Hours) Vital Signs Temp Pulse Pulse Resp BP BP Pulse Ox 02/20/25 21:29 69 16 120/78 95 02/20/25 21:28 66 02/20/25 20:02 69 16 121/68 96 02/20/25 16:30 37 C 83 18 135/72 96 O2 Del Method 02/20/25 21:29 Room Air 02/20/25 21:28 02/20/25 20:02 Room Air 02/20/25 16:30 Room Air Laboratory Results Laboratory Results WBC 6.10 K/ul (4.8-10.8) 02/20/25 17:21 RBC 3.73 M/uL (4.20-5.40) L 02/20/25 17:21 Hgb 10.9 g/dl (12.0-16.0) L 02/20/25 17:21 Hct 33.1 % (37.0-47.0) L 02/20/25 17:21 MCV 88.7 fL (80.0-100.0) 02/20/25 17:21 MCH 29.2 pg (25.0-34.0) 02/20/25 17:21 MCHC 32.9 g/dL (32.0-36.0) 02/20/25 17:21 RDW Std Deviation 43.8 fL (36.4-46.3) 02/20/25 17:21 RDW Coeff of Elpidio 13.5 % (11.5-14.5) 02/20/25 17:21 Plt Count 197 K/uL (130-400) 02/20/25 17:21 MPV 10.2 fL (9.4-12.4) 02/20/25 17:21 Immature Gran % (Auto) 0.2 % 02/20/25 17:21 Neut % (Auto) 53.5 % 02/20/25 17:21 Lymph % (Auto) 28.2 % 02/20/25 17:21 [place] % (Auto) 13.1 % 02/20/25 17:21 Eos % (Auto) 3.9 % 02/20/25 17:21 Baso % (Auto) 1.1 % 02/20/25 17:21 Neut # (Auto) 3.26 K/uL (1.40-6.50) 02/20/25 17:21 Lymph # (Auto) 1.72 K/uL (1.20-3.40) 02/20/25 17:21 [place] # (Auto) 0.80 K/uL (0.11-0.59) H 02/20/25 17:21 Eos # (Auto) 0.24 K/uL (0.00-0.50) 02/20/25 17:21 Baso # (Auto) 0.07 K/uL (0.00-0.20) 02/20/25 17:21 Immature Gran # (Auto) 0.01 K/uL (0.01-0.20) 02/20/25 17:21 Sodium 138 mmol/L (136-145) 02/20/25 17:21 Potassium 4.4 mmol/L (3.5-5.1) 02/20/25 17:21 Chloride 104 mmol/L (98-107) 02/20/25 17:21 Carbon Dioxide 24 mmol/L (21-32) 02/20/25 17:21 Anion Gap 10 (3-11) 02/20/25 17:21 BUN 31 mg/dl (6-23) H 02/20/25 17:21 Creatinine 2.80 mg/dl (0.6-1.2) H 02/20/25 17:21 Est Cr Clr Drug Dosing 14.6 ml/min 02/20/25 17:21 eGFR 15.85 02/20/25 17:21 BUN/Creatinine Ratio 11.1 (10-20) 02/20/25 17:21 Glucose 111 mg/dl (70-99(Fasting)) H 02/20/25 17:21 Calcium 10.2 mg/dl (8.6-10.3) 02/20/25 17:21 Magnesium 2.0 mg/dl (1.7-2.4) 02/20/25 17:21 Total Bilirubin 0.7 mg/dl (0.2-1.0) 02/20/25 17:21 AST 73 U/L (13-39) H 02/20/25 17:21 ALT 95 U/L (7-52) H 02/20/25 17:21 Alkaline Phosphatase 66 U/L (34-104) 02/20/25 17:21 Total Creatine Kinase 81 U/L (26-192) 02/20/25 17:21 Troponin I High Sens 11.5 pg/ml (0-14) 02/20/25 17:21 Total Protein 7.6 gm/dl (6.0-8.3) 02/20/25 17:21 Albumin 4.1 gm/dl (3.4-5.0) 02/20/25 17:21 Globulin 3.5 gm/dl (2.5-4.0) 02/20/25 17:21 Albumin/Globulin Ratio 1.2 (0.9-2) 02/20/25 17:21 Urine Color Yellow 02/20/25 17:21 Urine Appearance Clear (Clear) 02/20/25 17:21 Urine pH 5.5 (4.5-7.5) 02/20/25 17:21 Ur Specific Mchenry 1.015 (1.000-1.030) 02/20/25 17:21 Urine Protein 1+ (Negative) H 02/20/25 17:21 Urine Glucose (UA) Negative (Negative) 02/20/25 17:21 Urine Ketones Negative (Negative) 02/20/25 17:21 Urine Blood Negative (Negative) 02/20/25 17:21 Urine Nitrite Negative (Negative) 02/20/25 17:21 Urine Bilirubin Negative (Negative) 02/20/25 17:21 Urine Urobilinogen Negative (Negative) 02/20/25 17:21 Ur Leukocyte Esterase Negative (Negative) 02/20/25 17:21 Urine WBC (Auto) 0-5 /hpf (0-5) 02/20/25 17:21 Urine RBC (Auto) 0-2 /hpf (0-2) 02/20/25 17:21 U Hyaline Cast (Auto) 0-2 /lpf (0-2) 02/20/25 17:21 U Epithel Cells (Auto) 3-5 /hpf (0-2) H 02/20/25 17:21 Urine Bacteria (Auto) None Seen (None Seen) 02/20/25 17:21 Urine Comment 02/20/25 17:21 Adenovirus (PCR) Not Detected (NotDetected) 02/20/25 17:23 B. pertussis DNA (PCR) Not Detected (NotDetected) 02/20/25 17:23 B.parapertussis DNA PCR Not Detected (NotDetected) 02/20/25 17:23 Lyme Disease Screen Negative (Negative) 02/20/25 17:21 C. pneumoniae DNA (PCR) Not Detected (NotDetected) 02/20/25 17:23 Coronavirus OC43 (PCR) Not Detected (NotDetected) 02/20/25 17:23 Coronavirus HKU1 (PCR) Not Detected (NotDetected) 02/20/25 17:23 Coronavirus 229E (PCR) Not Detected (NotDetected) 02/20/25 17:23 SARS-CoV-2 (PCR) Not Detected (NotDetected) 02/20/25 17:23 Coronavirus NL63 (PCR) Not Detected (NotDetected) 02/20/25 17:23 Human Metapneumovir PCR Not Detected (NotDetected) 02/20/25 17:23 Influenza Type A (PCR) Not Detected (NotDetected) 02/20/25 17:23 Influenza Type B (PCR) Not Detected (NotDetected) 02/20/25 17:23 M. pneumoniae (PCR) Not Detected (NotDetected) 02/20/25 17:23 Parainfluenza 1 (PCR) Not Detected (NotDetected) 02/20/25 17:23 Parainfluenza 2 (PCR) Not Detected (NotDetected) 02/20/25 17:23 Parainfluenza 3 (PCR) Not Detected (NotDetected) 02/20/25 17:23 Parainfluenza 4 (PCR) Not Detected (NotDetected) 02/20/25 17:23 RSV (PCR) Not Detected (NotDetected) 02/20/25 17:23 Entero/Rhino (PCR) Not Detected (NotDetected) 02/20/25 17:23 Impressions Abdomen/Pelvis CT 02/20/25 19:27 CT ABDOMEN and PELVIS without INTRAVENOUS CONTRAST HISTORY: Abdominal pain TECHNIQUE: CT abdomen and pelvis without contrast. IV CONTRAST: None ENTERIC CONTRAST: None. COMPARISON: CT abdomen and pelvis September 10, 2024 FINDINGS: LOWER CHEST: Left basilar atelectasis LIVER: No focal lesion identified in this noncontrast study. GALLBLADDER/BILIARY: Surgically absent gallbladder. No abnormal biliary dilatation. SPLEEN: Unremarkable. PANCREAS: Unremarkable. ADRENALS: Unremarkable. KIDNEYS: Cortical cysts. No stones or hydronephrosis identified. PERITONEUM/RETROPERITONEUM. No lymphadenopathy by size criteria. No aortic aneurysm. Mild atherosclerosis. GASTROINTESTINAL: No obstruction. Colonic diverticulosis without evidence of diverticulitis. REPRODUCTIVE: No suspicious pelvic masses identified. URINARY BLADDER: Mild inflammatory changes with wall thickening BONES: No acute findings. IMPRESSION: No evidence of urinary obstruction. The urinary bladder is decompressed. No urolithiasis, hydronephrosis or hydroureter. There are mild inflammatory changes of the urine the bladder which could be due to cystitis. Electronically signed by Hermann Patel 02-20-2025 8:35 PM Chest X-Ray 02/20/25 19:27 EXAM: X-ray chest one-view portable CLINICAL HISTORY: Abdominal pain PRIORS: 11/27/2024 TECHNIQUE: Frontal view chest FINDINGS: The chest is well-expanded. No airspace consolidation, effusion or congestive changes. Heart size is top normal. No pneumothorax. Trachea is patent. Osseous structures demonstrate no acute abnormality. Chronic appearance of right humeral neck fracture. No radiopaque foreign body. Atherosclerotic disease of the aortic knob. IMPRESSION: No plain film evidence of an acute cardiopulmonary process. Electronically signed by Katharine Angeles 02-20-2025 8:08 PM Diagnostic Findings EKG as per my interpretation :Rate 80, NSR, normal axis, ST depression lateral leads Code Status & VTE Plan VTE Prophylaxis Plan VTE Prophylaxis will be ordered: Yes
[2025-02-20] MEDS ORDERED: DEXTROSE 50% 50 ML SYRINGE IV PRN (23:19)
[2025-02-20] MEDS ORDERED: GLUCOSE 10 TAB/TUBE PO PRN (23:19)
[2025-02-20] MEDS ORDERED: CARBOHYDRATES FOR HYPOGLYCEMIA PO PRN (23:19)
[2025-02-20] MEDS ORDERED: GLUCOSE 40% GEL 15 GM TUBE PO PRN (23:19)
[2025-02-20] MEDS ORDERED: GLUCAGON FOR INJ 1 MG VIAL SQ PRN (23:19)
[2025-02-20] MEDS: INSULIN ASPART PER UNIT CHARGE SC SCH (23:58)
[2025-02-21 04:56] LABS: Hematocrit (blood only) 26.1 % (37.0-47.0); Hemoglobin 8.7 g/dl (12.0-16.0); Immature Granulocytes # (auto) 0.00 K/uL (0.01-0.20); Immature Granulocytes % (auto) 0.0 %; Mean Corpuscular Hemoglobin 30.1 pg (25.0-34.0); Mean Corpuscular Volume 90.3 fL (80.0-100.0); Platelet Count 163 K/uL (130-400); RDW Standard Deviation 44.6 fL (36.4-46.3); Red Blood Count 2.89 M/uL (4.20-5.40); White Blood Count 4.37 K/ul (4.8-10.8)
[2025-02-21 05:15] LABS: Alanine Aminotransferase 64.0 U/L (7-52); Albumin Globulin Ratio 1.3 (0.9-2); Albumin Level 3.1 gm/dl (3.4-5.0); Alkaline Phosphatase 46.0 U/L (34-104); Anion Gap 4.0 (3-11); Bilirubin,Total 0.6 mg/dl (0.2-1.0); Blood Urea Nitrogen 29.0 mg/dl (6-23); Calcium 8.8 mg/dl (8.6-10.3); Carbon Dioxide 25.0 mmol/L (21-32); Chloride 110.0 mmol/L (98-107); Creatinine Clr Calc Pharmacy 15.3 ml/min; Globulin 2.4 gm/dl (2.5-4.0); Glucose 93.0 mg/dl (70-99(Fasting)); Potassium 4.7 mmol/L (3.5-5.1); Sodium 139.0 mmol/L (136-145); Total Protein 5.5 gm/dl (6.0-8.3)
[2025-02-21] MEDS: LEVOTHYROXINE SODIUM 75 MCG TABLET PO SCH (06:42)
[2025-02-21] MEDS: FERROUS SULFATE 325 MG TAB PO SCH (08:50)
[2025-02-21] MEDS: ASPIRIN 81 MG ECTAB PO SCH (08:50)
[2025-02-21] MEDS: ADVANCED PROBIOTIC 625 MG CAPSULE PO SCH (08:50)
--- NOTE | 2025-02-21 14:35 | Hospitalist Progress Note ---
Date of Service February 21, 2025 Assessment & Plan (1) Weakness: Plan: 89 yo F w/ PMH of PSVT, mild MR, hypertension, DORIS on CPAP, GERD, diverticulitis, MASLD, DM2 on oral medications, hypothyroidism, CRI (baseline creatinine 1.5), chronic anemia (baseline hemoglobin 9-10), dementia, skin cancer as per records, ESBL E. coli as per records, past tobacco abuse who was recently prescribed outpatient Bactrim course for UTI presented w/ worsenign weakness/nausea/poor appetite while on bactrim. No fever or chills. She was noted to have SOL over CKD. She is being managed for the following: Acute kidney injury over CKD stage IIIb: Baseline creatinine around 1.5 . Likely prerenal in setting of recent Bactrim use. Continue with IV fluid, creatinine gradually improving. Avoid nephrotoxic's. Nephrology consult if without improvement Generalized weakness: Likely in the setting of poor p.o. intake due to medication side effect. PT/OT. Other chronic medical conditions: Continue with/resume home meds as when able. hx PSVT mild MR hypertension, stable DORIS on CPAP MASLD DM2 on oral medications, reasonable control as of recent hemoglobin A1c of 7.2 from November 2024 hypothyroidism, euthyroid as of recent TSH chronic anemia, hemoglobin at baseline dementia, mentation at baseline past tobacco abuse PT OT eval DVT prophylaxis with Heparin subcu Full code Text document was generated using [employer] voice recognition software. It may contain grammatical or spelling errors. Kindly contact undersigned for clarification of any documentation item in question. Admission and Anticipated Discharge Date Admission Date: February 20, 2025 Subjective Patient was seen and examined at bedside. Patient was lying in bed, on room air, NAD, resting comfortably. Patient denies any fever/headache/dizziness/chest pain/shortness of breath. Patient reports eating okay and moving bowels okay. Patient reports feeling better. Physical Exam Physical Exam: GENERAL: Demented, comfortable,, slightly hard of hearing, no respiratory distress SKIN: Pallor, warm HEENT: pale palpebral conjunctivae, no ptosis, moist buccal mucosa NECK : Supple, no tenderness CHEST : CTA, no tenderness HEART : RRR, no obvious murmurs ABDOMEN: No distention, no hypogastric tenderness EXTREMITIES : Minimal LE swelling, no LE tenderness, no other conspicuous deformities noted NEUROLOGIC : Demented, no facial asymmetry, slightly hard of hearing, gait and stance not assessed Results & Data Results & Data Vital Signs (Past 12 Hours) Vital Signs Temp Pulse Pulse Resp BP Pulse Ox O2 Del Method 02/21/25 11:17 36.8 C 79 18 110/57 L 93 Room Air 02/21/25 08:50 Room Air 02/21/25 07:49 36.4 C L 80 18 149/65 H 94 Room Air 02/21/25 05:20 Room Air 02/21/25 05:20 36.4 C L 77 18 152/69 H 94 Room Air
[2025-02-21] MEDS: SODIUM CHLORIDE 0.9% 1,000 ML IV SCH (15:45)
[2025-02-21 23:27] VITALS: PULSE 69
[2025-02-22 07:51] VITALS: RESP 18; TEMP 98.1; O2SAT 93
[2025-02-22 07:56] LABS: Hematocrit (blood only) 27.3 % (37.0-47.0); Hemoglobin 8.8 g/dl (12.0-16.0); Mean Corpuscular Hemoglobin 29.3 pg (25.0-34.0); Mean Corpuscular Volume 91.0 fL (80.0-100.0); Platelet Count 167 K/uL (130-400); RDW Standard Deviation 45.0 fL (36.4-46.3); Red Blood Count 3.00 M/uL (4.20-5.40); White Blood Count 4.57 K/ul (4.8-10.8)
[2025-02-22 08:10] LABS: Anion Gap 5.0 (3-11); Blood Urea Nitrogen 25.0 mg/dl (6-23); Calcium 8.9 mg/dl (8.6-10.3); Carbon Dioxide 25.0 mmol/L (21-32); Chloride 111.0 mmol/L (98-107); Creatinine Clr Calc Pharmacy 17.2 ml/min; Glucose 103.0 mg/dl (70-99(Fasting)); Magnesium 1.6 mg/dl (1.7-2.4); Potassium 5.0 mmol/L (3.5-5.1); Sodium 141.0 mmol/L (136-145)
[2025-02-22] MEDS: SODIUM CHLORIDE 0.45 % 1,000 ML IV SCH (09:08)
[2025-02-22] MEDS: MAGNESIUM SULFATE / D5W 1 GM/100 ML BAG IV SCH (09:10)
--- NOTE | 2025-02-22 11:30 | Discharge Summary ---
Date of Service February 22, 2025 Admission HPI Per Admitting Provider History obtained from patient and records. Medical history significant for PSVT, mild MR, hypertension, DORIS on CPAP, GERD, diverticulitis, MASLD, DM2 on oral medications, hypothyroidism, CRI (baseline creatinine 1.5), chronic anemia (baseline hemoglobin 9-10), dementia, skin cancer as per records, ESBL E. coli as per records, past tobacco abuse. Recent confinement last month for metabolic encephalopathy secondary to complicated UTI secondary to ESBL. Patient seen at urgent care center last week for high blood sugar of 300s at home. Denies headache, chest pain, SOB, abdominal pain or urinary symptoms. BSG 250s at clinic. UA grew ESBL E. coli 10,000 200,000 colonies per mL. Patient prescribed outpatient Bactrim course. Patient noted generalized weakness after starting medication. Some nausea symptoms. No fever, no chills. No abdominal pain. Poor appetite. 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 Admission Exam Per Admitting Provider GENERAL: Demented, comfortable,, slightly hard of hearing, no respiratory distress SKIN: Pallor, warm HEENT: pale palpebral conjunctivae, no ptosis, dry buccal mucosa NECK : Supple, no tenderness CHEST : CTA, no tenderness HEART : RRR, no obvious murmurs ABDOMEN: Some distention, no hypogastric tenderness EXTREMITIES : Minimal LE swelling, no LE tenderness, no other conspicuous deformities noted NEUROLOGIC : Demented, no facial asymmetry, slightly hard of hearing, gait and stance not assessed Principal Diagnosis Acute kidney injury over CKD stage IIIb Generalized weakness Discharge Exam GENERAL: Demented, comfortable,, slightly hard of hearing, no respiratory distress SKIN: Pallor, warm HEENT: pale palpebral conjunctivae, no ptosis, moist buccal mucosa NECK : Supple, no tenderness CHEST : CTA, no tenderness HEART : RRR, no obvious murmurs ABDOMEN: No distention, no hypogastric tenderness EXTREMITIES : Minimal LE swelling, no LE tenderness, no other conspicuous deformities noted NEUROLOGIC : Demented, no facial asymmetry, slightly hard of hearing, gait and stance not assessed Discharge Data Allergies Allergy/AdvReac Type Severity Reaction Status Date / Time corn Allergy Severe Diarrhea Verified 11/27/24 10:46 ciprofloxacin Allergy Intermediate RASH Verified 11/27/24 10:46 BENEDICT Inhibitors AdvReac Intermediate COUGH Verified 11/27/24 10:46 metformin AdvReac Intermediate GI SYMPTOMS Verified 11/27/24 10:46 sulfamethoxazole AdvReac Intermediate arf ckd Verified 02/20/25 20:45 [From Bactrim] trimethoprim [From Bactrim] AdvReac Intermediate arf ckd Verified 02/20/25 20:45 Consultations 02/20/25 19:34 ED Decision to Admit Stat Ordered Studies 02/20/25 19:27 CT abd pelvis wo con Stat Hospital Course (1) Weakness: 89 yo F w/ PMH of PSVT, mild MR, hypertension, DORIS on CPAP, GERD, diverticulitis, MASLD, DM2 on oral medications, hypothyroidism, CRI (baseline creatinine 1.5), chronic anemia (baseline hemoglobin 9-10), dementia, skin cancer as per records, ESBL E. coli as per records, past tobacco abuse who was recently prescribed outpatient Bactrim course for UTI presented w/ worsenign weakness/nausea/poor appetite while on bactrim. No fever or chills. She was noted to have SOL over CKD. She was managed for the following: Acute kidney injury over CKD stage IIIb: Baseline creatinine around 1.5 . Likely prerenal and intrarenal in setting of poor PO intake and recent Bactrim use. s/p IV fluid, creatinine in improving trend. Avoid nephrotoxic's. N ephrology eval in 1-2 weeks time, pt and her made aware. Revisited pt later in the morning, pt's was at bedside who states patient is back to her baseline and would like to take her home. Will c/w ivf until 3 pm and dc, pt/her made aware to get BMP in 3-5 days time in coordination w/ PCP office, they voiced understanding. Generalized weakness: Likely in the setting of poor p.o. intake due to medication side effect. PT/OT. Other chronic medical conditions: Continue with/resume home meds as when able. hx PSVT mild MR hypertension, stable DORIS on CPAP MASLD DM2 on oral medications, reasonable control as of recent hemoglobin A1c of 7.2 from November 2024 hypothyroidism, euthyroid as of recent TSH chronic anemia, hemoglobin at baseline dementia, mentation at baseline past tobacco abuse PT OT eval DVT prophylaxis with Heparin subcu Full code Patient is being discharged home with family support with following instructions at the point of discharge: Follow-up with your primary care physician within a week time and likely you will need labs CBC/CMP/magnesium/phosphorus. As discussed at the bedside, it is very important that you maintain adequate hydration and have your kidney function test done at your PCP office in 3 to 5 days time upon discharge. Coordinate with your PCP office to set up the test. Follow-up with your nephrology in about 1 to 2 weeks time upon discharge. Continue to hold your losartan until you get evaluated by your PCP office within a week time upon discharge. Take your medications as prescribed. Please make sure that you are able to get your medications today by calling your pharmacy before you leave the hospital so that your treatment continuity is not broken. Text document was generated using [employer] voice recognition software. It may contain grammatical or spelling errors. Kindly contact undersigned for clarification of any documentation item in que stion. Home Health Attestation I certify that this patient is under my care and that I, or a physicians paralegal assistant working with me, had a face to-face encounter that meets the home health [id number] encounter requirements with this patient. The encounter with the patient was in whole, or in part, for the following medical condition, which is the primary reason for home health care (list medical condition): I certify that, based on my findings, the following services are medically necessary home health services: My clinical findings support the need for the above services because: Further, I certify that my clinical findings support that this patient is homebound (i.e. absences from home require considerable and taxing effort and are for medical reasons or christian services or infrequently or of short duration when for other reasons) because: Certification for Home Health Services: Based on the above findings, I certify that this patient is confined to the home and needs intermittent senior care care, physical therapy and/or speech therapy or continues to need occupational therapy. The patient is under my care, and I have initiated the establishment of the plan of care. This patient will be followed by a physician who will periodically review the plan of care. Total Time Total Time Spent Total Time Spent (In Minutes): 45 Discharge Plan Discharge Items Patient Disposition: Home - Self-Care Reason For Visit: ARF Discharge Diagnosis: Acute kidney injury over CKD stage IIIb Generalized weakness Condition on Discharge: Fair Activity: Resume your previous activity Non-emergency contact: Primary Care Provider Call non-emergency contact if: you have any medication questions Follow-up/Referrals: Milton Balderas MD [Primary Care Provider] - Diet: Carb Consistent or DM2 and Heart Healthy Addtl Attending Provider Instructions: Follow-up with your primary care physician within a week time and likely you will need labs CBC/CMP/magnesium/phosphorus. As discussed at the bedside, it is very important that you maintain adequate hydration and have your kidney function test done at your PCP office in 3 to 5 days time upon discharge. Coordinate with your PCP office to set up the test. Follow-up with your nephrology in about 1 to 2 weeks time upon discharge. Continue to hold your losartan until you get evaluated by your PCP office within a week time upon discharge. Take your medications as prescribed. Please make sure that you are able to get your medications today by calling your pharmacy before you leave the hospital so that your treatment continuity is not broken. Pending Studies at Discharge: No Stand-Alone Forms: My [facility] Team-Match, Smoking Cessation Medications and DC Order Prescriptions: Continued aspirin 81 mg Tablet,Delayed Release (Dr/Ec) 81 mg PO DAILY levothyroxine 75 mcg tablet 75 mcg PO DAILYBB ferrous sulfate 325 mg (65 mg iron) Tablet 325 mg PO DAILY Trulicity 0.75 mg/0.5 mL pen injector 0.75 mg SUBCUT WK Rx Instructions: MONDAYS Procrit 10,000 unit/mL Solution 10,000 unit subcut MONTHLY PRN (Reason: IF NEEDED PER PT/MD) cholecalciferol (vitamin D3) [Vitamin D3] 25 mcg (1,000 unit) Capsule 25 mcg PO DAILY biotin 1 mg Tablet 1 mg PO DAILY Probiotic 5 billion cell Capsule, Sprinkle 1 cap PO DAILY psyllium husk [Metamucil] 0.4 gram Capsule 0.4 g PO Q OTHER DAY Veltassa 8.4 gram powder in packet 8.4 g PO Q OTHER DAY amlodipine 5 mg Tablet 10 mg PO DAILY Qty: 30 0RF triamcinolone acetonide 0.1 % cream 1 applic TOPICAL BID PRN (Reason: Rash) Held losartan 50 mg tablet 100 mg PO DAILY Qty: 60 0RF Hold Instructions: Resume on 03/01/25. Discontinued sulfamethoxazole-trimethoprim [Bactrim] 400-80 mg tablet 1 tab PO DAILY Qty: 3 0RF Rx Instructions: start 12/16/24 Discharge Orders: Discharge Order (Routine); Ordered 02/22/25 Ordered By: Tristan Rodríguez Admission Data Admit Date/Time: 02/20/25 19:57 Attending Provider: Tristan Rodríguez Admit Provider: Evin Adams Primary Care Provider: Milton Balderas Other Providers: Evin Adams
[2025-02-22] MEDS: PATIROMER CALCIUM SORBITEX 8.4 GM PACK PO SCH (12:50)
[2025-02-22 15:19] VITALS: BP 109/56
--- NOTE | 2025-02-23 23:49 | Electrocardiogram Report ---
Test Reason : Blood Pressure : */* mmHG Vent. Rate : 81 BPM Atrial Rate : 81 BPM P-R Int : 146 ms QRS Dur : 82 ms QT Int : 324 ms P-R-T Axes : 37 16 113 degrees QTcB Int : 376 ms Normal sinus rhythm Abnormal ECG When compared with ECG of 27-Nov-2024 08:49, T wave inversion less evident in Anterior leads Confirmed by Rogelio Jorge ([id number]) on 02/23/2025 11:49:26 PM Referred By: REFERRED SELF Confirmed By: Rogelio Jorge
== END 2025-02-22 15:49 | disposition home or self-care (01) ==
LOC: ED 16:03 → EDINP 16:03 → 2W 23:19

== ENCOUNTER 2025-03-10 12:19 | Observation (INO) ==
[2025-03-10 14:09] LABS: Hematocrit (blood only) 31.9 % (37.0-47.0); Hemoglobin 10.7 g/dl (12.0-16.0); Mean Corpuscular Hemoglobin 30.2 pg (25.0-34.0); Mean Corpuscular Volume 90.1 fL (80.0-100.0); RDW Standard Deviation 44.4 fL (36.4-46.3); Red Blood Count 3.54 M/uL (4.20-5.40); White Blood Count 7.31 K/ul (4.8-10.8)
[2025-03-10 14:10] LABS: Immature Granulocytes # (auto) 0.02 K/uL (0.01-0.20); Immature Granulocytes % (auto) 0.3 %; Platelet Count 205 K/uL (130-400)
[2025-03-10 14:12] LABS: Appearance Urine Clear (Clear); Bacteria Urine Automated None Seen (None Seen); Cast Urine Automated 0-2 /lpf (0-2); Glucose Urine UA Negative (Negative); RBC Urine Automated 0-2 /hpf (0-2)
[2025-03-10 14:21] LABS: Alanine Aminotransferase 92.0 U/L (7-52); Albumin Globulin Ratio 1.3 (0.9-2); Albumin Level 4.0 gm/dl (3.4-5.0); Alkaline Phosphatase 49.0 U/L (34-104); Anion Gap 7.0 (3-11); Bilirubin,Total 0.6 mg/dl (0.2-1.0); Blood Urea Nitrogen 26.0 mg/dl (6-23); Calcium 10.0 mg/dl (8.6-10.3); Carbon Dioxide 25.0 mmol/L (21-32); Chloride 108.0 mmol/L (98-107); Creatinine Clr Calc Pharmacy 28.3 ml/min; Globulin 3.2 gm/dl (2.5-4.0); Glucose 132.0 mg/dl (70-99(Fasting)); Magnesium 1.5 mg/dl (1.7-2.4); Potassium 4.7 mmol/L (3.5-5.1); Sodium 140.0 mmol/L (136-145); Total Protein 7.2 gm/dl (6.0-8.3)
--- NOTE | 2025-03-10 14:26 | Emergency Department Note ---
Impression & Plan Weakness, Hypomagnesemia, Elevated troponin, Dizziness ED Provider Note NAME: KELLI ALBRIGHT AGE: 89 SEX: F : 1935 ARRIVES VIA: Walk-In INFORMANT: [Patient][family] ED PROVIDER(S): [Garry Haider MD] CHIEF COMPLAINT: Illness HISTORY OF PRESENT ILLNESS: The patient is an 89-year-old female who has felt lethargic, dizzy and weak for the last 2 days. She was told outpatient that she had a low hemoglobin and was sent to the ED. The patient thinks she may be dehydrated, she does not drink enough fluids. She has not had urinary complaints, no cough or congestion. No chest pain or abdominal pain. No vomiting or diarrhea. She has noticed some pedal edema. Her weakness is generalized, not one-sided. PMHx/PSHx/Social Hx: See Below PHYSICAL EXAM: GENERAL: Patient is in no acute distress. HEENT: No acute trauma, normocephalic atraumatic, mucous membranes moist, no nasal congestion. NECK: No stridor, no adenopathy, no meningismus, trachea is midline. LUNGS: Scattered crackles, slightly worse on the right. No wheezing or respiratory distress. HEART: Without murmurs gallops or rubs, regular rate and rhythm. ABDOMEN: Soft, nontender, no peritonitis. EXTREMITIES: No cyanosis, full range of motion of all the joints without pain or difficulty. Mild bilateral pedal edema NEUROLOGIC: Oriented x 3, no acute motor or sensory deficits, no focal weakness. SKIN: No jaundice, no diaphoresis. Slightly pale DIFFERENTIAL DIAGNOSIS: Renal injury, dehydration, UTI, electrolyte imbalance, anemia, among others. EMERGENCY DEPARTMENT PROCEDURES: MEDICAL DECISION MAKING: There is no leukocytosis. The patient is anemic however, her hemoglobin is improved compared to recent testing. There is a normal platelet count. No bandemia. There was some renal insufficiency but this is baseline looking back at previous testing. Magnesium low at 1.5. There were some subtle liver enzyme elevations although, these have been documented before. The bilirubin was not elevated. The TSH was slightly high however, the T4 was normal. Urinalysis did not show findings of infection but more so contamination. Anaplasmosis and Babesia smears were negative. Lyme disease testing was negative. COVID, influenza and RSV test were negative. Chest x-ray does not show focal infiltrate or CHF. ECG shows a normal sinus rhythm with some biphasic T waves, no ST elevation. Cardiac enzyme testing x 2 is somewhat elevated and, there is a rise to the values, this troponin elevation certainly could be consistent with cardiac injury. On exam, the patient was not toxic or febrile. She was in no distress. No focal neurologic findings. The patient received 1 L of IV saline for hydration. She was given 2 g of IV magnesium. At this point given the troponin findings, given her hypomagnesemia, given her complaints--I do think hospitalization, monitoring and troponin trending would be in order. A cardiology consult may be warranted. I spoke with the patient and her family, I spoke with case management, the on- call hospitalist was consulted. Prior/Outside records/notes reviewed: Discharge summary note from 02/22/2025 describing her presentation, hospital course and outpatient plan. ECG per my interpretation: Indication was weakness. The ECG shows a normal sinus rhythm with a rate of 69. There is some biphasic nonspecific ST change noted in the inferior and lateral leads. There is no ST elevation. No PVCs. The QTc is 420. Continuous Cardiac Monitoring per my interpretation: An order was placed for continuous cardiac monitoring. The monitor shows a rate of 60 with normal sinus rhythm. Imaging/x-ray results per my interpretation: Chest x-ray shows some potential trace pleural effusions, there is no CHF or pneumonia. Chronic Medical/Social conditions affecting care: Advanced age. Care/Management discussed with: Case management and the on-call hospitalist. Level of care consideration(s): After review of the information above and other included data: --I believe the patient requires escalation of care to admission DISPOSITION: Admission Past Med/Surg History Problem List Dizziness (Acute) Elevated troponin (Acute) Hypomagnesemia (Acute) Weakness (Acute) Elevated troponin Medication reaction (Acute) Flu-like symptoms (Acute) Acute kidney injury (Acute) Weakness (Acute) Mild cognitive impairment (MCI) due to Alzheimer's disease Abdominal pain (Acute) Weakness (Acute) ESBL (extended spectrum beta-lactamase) producing bacteria infection (Acute) Abnormal ECG (Acute) NSTEMI (non-ST elevated myocardial infarction) Hypertension (Acute) Abdominal discomfort (Acute) Generalized weakness Hypomagnesemia (Acute) Diverticulitis (Acute) Diverticulitis of sigmoid colon (Acute) Acute metabolic encephalopathy Acute alteration in mental status (Acute) Urinary tract infection (Acute) Abnormal LFTs (Acute) SOL (acute kidney injury) (Acute) Hypomagnesemia (Acute) Generalized weakness (Acute) Hypomagnesemia (Acute) Generalized weakness (Acute) Elevated troponin (Acute) Chest pain (Acute) Decreased appetite Generalized weakness Elevated troponin Chronic anemia Chest pain (Acute) Abnormal EKG (Acute) Chronic RLQ pain Basal cell carcinoma of skin of ankle (Acute) Left knee DJD (Acute) Lichen sclerosus et atrophicus (Acute) Myelodysplastic syndrome (Acute) Right knee DJD (Acute) Urge and stress incontinence (Acute) Low back pain DVT prophylaxis Abnormal ECG Pernicious anemia DORIS on CPAP Hypothyroidism GERD (gastroesophageal reflux disease) Dyslipidemia DM type 2 (diabetes mellitus, type 2) (Acute) CKD (chronic kidney disease), stage III (Acute) Anemia due to chronic kidney disease Substernal chest pain (Acute) Chest pain (Acute) Medical History Elevated troponin Chest pain Abdominal pain, LLQ (left lower quadrant) HTN (hypertension) CKD (chronic kidney disease) Complicated UTI (urinary tract infection) History of ESBL E. coli infection Hypertensive urgency IgM lambda paraproteinemia Surgical History History of gynecologic surgery anterior colporrhaphy History of hysteroscopy Status post tubal ligation History of total bilateral knee replacement (TKR) History of knee surgery History of appendectomy History of dilation and curettage S/P cholecystectomy Family History Mother , 85 Heart disease Diabetes Father , 65 Pancreatic cancer Sister Uterine cancer Breast cancer Denies family history of Ovarian cancer Colorectal cancer Social History Smoking Status: Former smoker Tobacco Type: Cigarettes Second Hand Exposure: No; Do You Dip or Chew Tobacco: No; Tobacco Cessation Education Requested by Patient: No Hx Alcohol Use: No Hx Substance Use: No Preferred Language: Serbian Communication Ability: Effective Seasoner Hand Required: No Beliefs That Will Affect Care: None marital status: Current Living Situation: Spouse Current Living Situation Comment: at home current occupational status: retired Other Information That Helps Us Care for You: No Feels Safe at Home: Yes Safety Concerns: Feels Safe At This Time Assistive Devices: Cane, CPAP, Denture - Upper, Denture - Lower, Glasses and Walker Allergies Allergies Allergy/AdvReac Type Severity Reaction Status Date / Time ciprofloxacin Allergy Intermediate RASH Verified 03/10/25 16:45 corn AdvReac Severe Diarrhea Verified 03/10/25 16:45 BENEDICT Inhibitors AdvReac Intermediate COUGH Verified 03/10/25 16:45 metformin AdvReac Intermediate GI SYMPTOMS Verified 03/10/25 16:45 sulfamethoxazole AdvReac Intermediate arf ckd Verified 03/10/25 16:45 [From Bactrim] trimethoprim [From Bactrim] AdvReac Intermediate arf ckd Verified 03/10/25 16:45 Home Meds Home Medications Medication Instructions Recorded Confirmed aspirin 81 mg tablet,delayed 81 mg PO DAILY 06/20/24 03/10/25 release dulaglutide 0.75 mg/0.5 mL 0.75 mg subcut WK 06/20/24 03/10/25 subcutaneous pen injector (Trulicity) ferrous sulfate 325 mg (65 mg 325 mg PO DAILY 06/20/24 03/10/25 iron) tablet levothyroxine 75 mcg tablet 75 mcg PO DAILYBB 06/20/24 03/10/25 Lactobacil.acidophilus-Bifido.animalis 1 cap PO DAILY 09/10/24 03/10/25 5 billion cell sprinkle capsule (Probiotic) biotin 1 mg tablet 1 mg PO DAILY 09/10/24 03/10/25 cholecalciferol (vitamin D3) 25 25 mcg PO DAILY 09/10/24 03/10/25 mcg (1,000 unit) capsule (Vitamin D3) epoetin lou 10,000 unit/mL 10,000 unit subcut MONTHLY PRN IF 09/10/24 03/10/25 injection solution (Procrit) NEEDED PER PT/MD psyllium husk 0.4 gram capsule 0.4 g PO Q OTHER DAY 09/10/24 03/10/25 (Metamucil) patiromer calcium sorbitex 8.4 8.4 g PO Q OTHER DAY 12/13/24 03/10/25 gram oral powder packet (Veltassa) triamcinolone acetonide 0.1 % 1 applic topical BID PRN Rash 02/20/25 03/10/25 topical cream Previous Rx's Medication Instructions Recorded amlodipine 5 mg tablet 10 mg (2 x 5 mg) PO DAILY #30 tabs 12/15/24 losartan 50 mg tablet 100 mg (2 x 50 mg) PO DAILY #60 12/15/24 tabs Results & Data (ED) Vital Signs Vital Signs - 24 hr 03/10/25 12:24 03/10/25 12:53 03/10/25 12:54 Temperature 36.8 C Temperature Source Temporal Artery Scan Pulse Rate 70 65 Pulse Rate [Left Apical] 63 Pulse Rhythm [Left Apical] Pulse Strength [Left Apical] Respiratory Rate 18 21 Respiratory Effort / Characteristics Non-Labored Spontaneous Non-Labored Spontaneous Respiratory Depth Normal Normal Respiratory Pattern Regular Blood Pressure 153/72 H Blood Pressure [Right Arm] 136/73 Blood Pressure Mean 99 Blood Pressure Mean [Right Arm] 94 Blood Pressure Position Sitting Blood Pressure Position [Right Arm] Pulse Oximetry 97 97 Oxygen Delivery Method Room Air Room Air Sepsis Recent Fever Within 48 Hours No Sepsis New/Unexplained Change in Mental Status No Sepsis Action Taken by Nursing No Action Required 03/10/25 14:00 03/10/25 16:00 03/10/25 18:00 Temperature Temperature Source Pulse Rate Pulse Rate [Left Apical] 60 60 69 Pulse Rhythm [Left Apical] Regular Regular Pulse Strength [Left Apical] Normal Normal Respiratory Rate 18 20 19 Respiratory Effort / Characteristics Non-Labored Spontaneous Non-Labored Spontaneous Respiratory Depth Normal Normal Respiratory Pattern Regular Blood Pressure Blood Pressure [Right Arm] 138/73 144/101 H 164/80 H Blood Pressure Mean Blood Pressure Mean [Right Arm] 94 115 108 Blood Pressure Position Blood Pressure Position [Right Arm] Lying Sitting Pulse Oximetry 97 98 94 Oxygen Delivery Method Room Air Room Air Sepsis Recent Fever Within 48 Hours Sepsis New/Unexplained Change in Mental Status Sepsis Action Taken by Long Term Medications Current Medication List: was personally reviewed by me Laboratory Data Attestation: I reviewed the patient's lab results. 03/10/25 13:05 03/10/25 13:05 Lab Results 03/10/25 03/10/25 03/10/25 Range/Units 13:05 14:00 14:07 WBC 7.31 (4.8-10.8) K/ul RBC 3.54 L (4.20-5.40) M/uL Hgb 10.7 L (12.0-16.0) g/dl Hct 31.9 L (37.0-47.0) % MCV 90.1 (80.0-100.0) fL MCH 30.2 (25.0-34.0) pg MCHC 33.5 (32.0-36.0) g/dL RDW Std Deviation 44.4 (36.4-46.3) fL RDW Coeff of Elpidio 13.4 (11.5-14.5) % Plt Count 205 (130-400) K/uL MPV 11.0 (9.4-12.4) fL Immature Gran % (Auto) 0.3 % Neut % (Auto) 52.5 % Lymph % (Auto) 32.4 % [place] % (Auto) 9.6 % Eos % (Auto) 4.2 % Baso % (Auto) 1.0 % Neut # (Auto) 3.84 (1.40-6.50) K/uL Lymph # (Auto) 2.37 (1.20-3.40) K/uL [place] # (Auto) 0.70 H (0.11-0.59) K/uL Eos # (Auto) 0.31 (0.00-0.50) K/uL Baso # (Auto) 0.07 (0.00-0.20) K/uL Immature Gran # (Auto) 0.02 (0.01-0.20) K/uL Sodium 140 (136-145) mmol/L Potassium 4.7 (3.5-5.1) mmol/L Chloride 108 H (98-107) mmol/L Carbon Dioxide 25 (21-32) mmol/L Anion Gap 7 (3-11) BUN 26 H (6-23) mg/dl Creatinine 1.45 H (0.6-1.2) mg/dl Est Cr Clr Drug Dosing 28.3 ml/min eGFR 34.91 BUN/Creatinine Ratio 17.9 (10-20) Glucose 132 H (70-99(Fasting)) mg/dl Calcium 10.0 (8.6-10.3) mg/dl Magnesium 1.5 L (1.7-2.4) mg/dl Total Bilirubin 0.6 (0.2-1.0) mg/dl AST 70 H (13-39) U/L ALT 92 H (7-52) U/L Alkaline Phosphatase 49 (34-104) U/L Troponin I High Sens 15.9 H (0-14) pg/ml Total Protein 7.2 (6.0-8.3) gm/dl Albumin 4.0 (3.4-5.0) gm/dl Globulin 3.2 (2.5-4.0) gm/dl Albumin/Globulin Ratio 1.3 (0.9-2) TSH 4.817 H (0.300-4.500) uIu/ml Free T4 1.20 (0.61-1.60) ng/dl Urine Color Yellow Urine Appearance Clear (Clear) Urine pH 5.5 (4.5-7.5) Ur Specific [place] 1.007 (1.000-1.030) Urine Protein 1+ H (Negative) Urine Glucose (UA) Negative (Negative) Urine Ketones Negative (Negative) Urine Blood Negative (Negative) Urine Nitrite Negative (Negative) Urine Bilirubin Negative (Negative) Urine Urobilinogen Negative (Negative) Ur Leukocyte Esterase 2+ H (Negative) Urine WBC (Auto) 6-10 H (0-5) /hpf Urine RBC (Auto) 0-2 (0-2) /hpf U Hyaline Cast (Auto) 0-2 (0-2) /lpf U Epithel Cells (Auto) 6-10 H (0-2) /hpf Urine Bacteria (Auto) None Seen (None Seen) Urine Comment Anaplasma Smear See Comment Babesia Smear See Comment Lyme Disease Screen Negative (Negative) SARS-CoV-2 (PCR) NEGATIVE (Negative) Influenza Type A (PCR) Negative (Neg) Influenza Type B (PCR) Negative (Neg) RSV (RT-PCR) Negative (Neg) 03/10/25 Range/Units 17:48 WBC (4.8-10.8) K/ul RBC (4.20-5.40) M/uL Hgb (12.0-16.0) g/dl Hct (37.0-47.0) % MCV (80.0-100.0) fL MCH (25.0-34.0) pg MCHC (32.0-36.0) g/dL RDW Std Deviation (36.4-46.3) fL RDW Coeff of Elpidio (11.5-14.5) % Plt Count (130-400) K/uL MPV (9.4-12.4) fL Immature Gran % (Auto) % Neut % (Auto) % Lymph % (Auto) % [place] % (Auto) % Eos % (Auto) % Baso % (Auto) % Neut # (Auto) (1.40-6.50) K/uL Lymph # (Auto) (1.20-3.40) K/uL [place] # (Auto) (0.11-0.59) K/uL Eos # (Auto) (0.00-0.50) K/uL Baso # (Auto) (0.00-0.20) K/uL Immature Gran # (Auto) (0.01-0.20) K/uL Sodium (136-145) mmol/L Potassium (3.5-5.1) mmol/L Chloride (98-107) mmol/L Carbon Dioxide (21-32) mmol/L Anion Gap (3-11) BUN (6-23) mg/dl Creatinine (0.6-1.2) mg/dl Est Cr Clr Drug Dosing ml/min eGFR BUN/Creatinine Ratio (10-20) Glucose (70-99(Fasting)) mg/dl Calcium (8.6-10.3) mg/dl Magnesium (1.7-2.4) mg/dl Total Bilirubin (0.2-1.0) mg/dl AST (13-39) U/L ALT (7-52) U/L Alkaline Phosphatase (34-104) U/L Troponin I High Sens 26.5 H D (0-14) pg/ml Total Protein (6.0-8.3) gm/dl Albumin (3.4-5.0) gm/dl Globulin (2.5-4.0) gm/dl Albumin/Globulin Ratio (0.9-2) TSH (0.300-4.500) uIu/ml Free T4 (0.61-1.60) ng/dl Urine Color Urine Appearance (Clear) Urine pH (4.5-7.5) Ur Specific [place] (1.000-1.030) Urine Protein (Negative) Urine Glucose (UA) (Negative) Urine Ketones (Negative) Urine Blood (Negative) Urine Nitrite (Negative) Urine Bilirubin (Negative) Urine Urobilinogen (Negative) Ur Leukocyte Esterase (Negative) Urine WBC (Auto) (0-5) /hpf Urine RBC (Auto) (0-2) /hpf U Hyaline Cast (Auto) (0-2) /lpf U Epithel Cells (Auto) (0-2) /hpf Urine Bacteria (Auto) (None Seen) Urine Comment Anaplasma Smear Babesia Smear Lyme Disease Screen (Negative) SARS-CoV-2 (PCR) (Negative) Influenza Type A (PCR) (Neg) Influenza Type B (PCR) (Neg) RSV (RT-PCR) (Neg) Administered Medications Heparin Sodium (Porcine) (Heparin Sod 5,000 Unit/0.5 Ml Vial) 5,000 units SQ Q12 SIGRID Stop: 04/09/25 21:08 Last Admin: 03/10/25 21:33 Dose: 5,000 units Documented By: JAKE Discontinued Medications Sodium Chloride (Nss) 500 mls @ 999 mls/hr IV .Q31M ONE Stop: 03/10/25 14:48 Last Infusion: 03/10/25 15:52 Dose: Infused Documented By: [facility] [place]: 03/10/25 14:27 Dose: 999 mls/hr Documented By: CITLALY Magnesium Sulfate/Dextrose (Magnesium Sulfate / D5w) 1 gm in 100 mls @ 100 mls/hr IV Q1H [facility] Stop: 03/10/25 16:40 Last Infusion: 03/10/25 17:15 Dose: Infused Documented By: [facility] [place]: 03/10/25 16:01 Dose: 100 mls/hr Documented By: marga Infusion: 03/10/25 16:00 Dose: Infused Documented By: [facility] [place] Admin: 03/10/25 14:56 Dose: 100 mls/hr Documented By: marga Sodium Chloride (Nss) 500 mls @ 999 mls/hr IV .Q31M ONE Stop: 03/10/25 16:00 Last Infusion: 03/10/25 17:04 Dose: Infused Documented By: [facility] [place] Admin: 03/10/25 16:02 Dose: 999 mls/hr Documented By: [facility] Imaging Data Radiologist's Impression: Chest X-Ray 03/10/25 13:53 XR chest 1V portable CLINICAL HISTORY: weak COMPARISON STUDY: 02/20/2025 FINDINGS: Heart size and pulmonary vasculature are normal. No consolidation or pleural effusion seen. No pneumothorax. IMPRESSION: No acute findings. ACT 112: Negative or not required by law. Electronically signed by: Valdemar Vaughn M.D. 03/10/2025 2:34 PM Discharge Plan Visit Data Chief Complaint: Illness Stated Complaint: NOT FEELING FEEL AT ALL ED Provider: Garry Haider Discharge Problem: Weakness, Hypomagnesemia, Elevated troponin, Dizziness Patient Disposition: Admitted As Inpatient Condition: Fair Discharge Instructions Interventions: ED Discharge Assessment Last Done: 03/10/25 20:54
[2025-03-10] MEDS: SODIUM CHLORIDE 0.9% 500 ML IV ONE ×2 (14:27→16:02)
--- NOTE | 2025-03-10 14:35 | XRay Report ---
XR chest 1V portable CLINICAL HISTORY: weak COMPARISON STUDY: 02/20/2025 FINDINGS: Heart size and pulmonary vasculature are normal. No consolidation or pleural effusion seen. No pneumothorax. IMPRESSION: No acute findings. ACT 112: Negative or not required by law. Electronically signed by: Valdemar Vaughn M.D. 03/10/2025 2:34 PM
[2025-03-10 14:36] LABS: Thyroid Stimulating Hormone 4.817 uIu/ml (0.300-4.500)
[2025-03-10 14:47] LABS: Influenza A virus by PCR Negative (Neg); Influenza B virus by PCR Negative (Neg); SARS CoV2 RNA(COVID-19) Ceph NEGATIVE (Negative)
[2025-03-10] MEDS: MAGNESIUM SULFATE / D5W 1 GM/100 ML BAG IV SCH (14:56)
[2025-03-10 15:17] LABS: T4 Free Thyroxine 1.2 ng/dl (0.61-1.60)
--- NOTE | 2025-03-10 19:24 | History & Physical Report ---
Date of Service March 10, 2025 Assessment & Plan (1) Elevated troponin: Plan 89F with PMH SVT, HTN, DORIS on CPAP, GERD, NIDDM, hypothyroidism, CKD3, chronic Fe def anemia, mild cognitive impairment who presents with generalized weakness.. SHe was found to have elevated trop #Elevated Trop -Trop 16-->26 in ED -She denies any cardiac symptoms -EKG reviewed, some T wave changes in inferior leads, unchanged from prior. No ST segment changes Plan -Very low suspicion for ACS however given rise, will trend trops -Cardiac monitoring -Continue home ASA -Anticipate DC in AM if trops are stable -If they continue to rise, would check TTE #Gen weakness -She denied any weakness to author and is moving all extremities without weakness -UA + LE but she is asymptomatic without fever or leukocytosis. unlikely to have UTI -TSH acceptable for age. FT4 normal -Labs otherwise benign #Hypomagnesemia -Replace and follow #CKD3 -At baseline #Mild cognitive impairment -Answering questions appropriately -Oriented x 3 to author -Delirium precautions I spent a total of 76minutes coordinating, documenting, and providing care for this patient excluding time spent in the performance of separately billed services. This included personally reviewing all current laboratories and imaging studies, medical reconciliation, outpatient chart review and discussion with specialists History of Present Illness Chief Complaint: weakness Primary Care Provider: Milton Balderas MD Ms. Francisco is a very pleasant 89F with PMH SVT, HTN, DORIS on CPAP, GERD, NIDDM, hypothyroidism, CKD3, chronic Fe def anemia, mild cognitive impairment who presents with generalized weakness. She actually denies weakness to author but endorsed to her who sent her to the ED. not available at bedside. Other than being cold, she denies any complaints to author at this time. Patient denies F/C, BECKER, vision changes, CP, palpitations, SOB, dyspnea, abd pain, N/V/D dysuria polyuria, flank pain. ED vitals stable other htan mild HTN Allergies Allergy/AdvReac Type Severity Reaction Status Date / Time ciprofloxacin Allergy Intermediate RASH Verified 03/10/25 16:45 corn AdvReac Severe Diarrhea Verified 03/10/25 16:45 BENEDICT Inhibitors AdvReac Intermediate COUGH Verified 03/10/25 16:45 metformin AdvReac Intermediate GI SYMPTOMS Verified 03/10/25 16:45 sulfamethoxazole AdvReac Intermediate arf ckd Verified 03/10/25 16:45 [From Bactrim] trimethoprim [From Bactrim] AdvReac Intermediate arf ckd Verified 03/10/25 16:45 Home Medications Medication Instructions Recorded Confirmed Type aspirin 81 mg tablet,delayed 81 mg PO DAILY 06/20/24 03/10/25 History release dulaglutide 0.75 mg/0.5 mL 0.75 mg subcut WK 06/20/24 03/10/25 History subcutaneous pen injector (Trulicity) ferrous sulfate 325 mg (65 mg 325 mg PO DAILY 06/20/24 03/10/25 History iron) tablet levothyroxine 75 mcg tablet 75 mcg PO DAILYBB 06/20/24 03/10/25 History Lactobacil.acidophilus-Bifido.animalis 1 cap PO DAILY 09/10/24 03/10/25 History 5 billion cell sprinkle capsule (Probiotic) biotin 1 mg tablet 1 mg PO DAILY 09/10/24 03/10/25 History cholecalciferol (vitamin D3) 25 25 mcg PO DAILY 09/10/24 03/10/25 History mcg (1,000 unit) capsule (Vitamin D3) epoetin lou 10,000 unit/mL 10,000 unit subcut MONTHLY PRN IF 09/10/24 03/10/25 History injection solution (Procrit) NEEDED PER PT/MD psyllium husk 0.4 gram capsule 0.4 g PO Q OTHER DAY 09/10/24 03/10/25 History (Metamucil) patiromer calcium sorbitex 8.4 8.4 g PO Q OTHER DAY 12/13/24 03/10/25 History gram oral powder packet (Veltassa) amlodipine 5 mg tablet 10 mg (2 x 5 mg) PO DAILY #30 tabs 12/15/24 03/10/25 Rx losartan 50 mg tablet 100 mg (2 x 50 mg) PO DAILY #60 12/15/24 03/10/25 Rx tabs triamcinolone acetonide 0.1 % 1 applic topical BID PRN Rash 02/20/25 03/10/25 History topical cream Past Med/Surg History Problem List (Updated 03/10/25 @ 19:18 by Robert Mcclellan DO) Elevated troponin Medication reaction (Acute) Flu-like symptoms (Acute) Acute kidney injury (Acute) Weakness (Acute) Mild cognitive impairment (MCI) due to Alzheimer's disease Abdominal pain (Acute) Weakness (Acute) ESBL (extended spectrum beta-lactamase) producing bacteria infection (Acute) Abnormal ECG (Acute) NSTEMI (non-ST elevated myocardial infarction) Hypertension (Acute) Abdominal discomfort (Acute) Generalized weakness Hypomagnesemia (Acute) Diverticulitis (Acute) Diverticulitis of sigmoid colon (Acute) Acute metabolic encephalopathy Acute alteration in mental status (Acute) Urinary tract infection (Acute) Abnormal LFTs (Acute) SOL (acute kidney injury) (Acute) Hypomagnesemia (Acute) Generalized weakness (Acute) Hypomagnesemia (Acute) Generalized weakness (Acute) Elevated troponin (Acute) Chest pain (Acute) Decreased appetite Generalized weakness Elevated troponin Chronic anemia Chest pain (Acute) Abnormal EKG (Acute) Chronic RLQ pain Basal cell carcinoma of skin of ankle (Acute) Left knee DJD (Acute) Lichen sclerosus et atrophicus (Acute) Myelodysplastic syndrome (Acute) Right knee DJD (Acute) Urge and stress incontinence (Acute) Low back pain DVT prophylaxis Abnormal ECG Pernicious anemia DORIS on CPAP Hypothyroidism GERD (gastroesophageal reflux disease) Dyslipidemia DM type 2 (diabetes mellitus, type 2) (Acute) CKD (chronic kidney disease), stage III (Acute) Anemia due to chronic kidney disease Substernal chest pain (Acute) Chest pain (Acute) Medical History Elevated troponin Chest pain Abdominal pain, LLQ (left lower quadrant) HTN (hypertension) CKD (chronic kidney disease) Complicated UTI (urinary tract infection) History of ESBL E. coli infection Hypertensive urgency IgM lambda paraproteinemia Surgical History History of gynecologic surgery anterior colporrhaphy History of hysteroscopy Status post tubal ligation History of total bilateral knee replacement (TKR) History of knee surgery History of appendectomy History of dilation and curettage S/P cholecystectomy Family History Mother , 85 Heart disease Diabetes Father , 65 Pancreatic cancer Sister Uterine cancer Breast cancer Denies family history of Ovarian cancer Colorectal cancer Social History (Reviewed 11/03/25 @ 19:17 by ZINA Waite Smoking Status: Former smoker Tobacco Type: Cigarettes Second Hand Exposure: No; Do You Dip or Chew Tobacco: No; Hx Alcohol Use: No Hx Substance Use: No Preferred Language: Albanian Communication Ability: Effective Saxophone Assembler Required: No Beliefs That Will Affect Care: None marital status: Current Living Situation: Spouse Current Living Situation Comment: at home current occupational status: retired Feels Safe at Home: Yes Assistive Devices: CPAP and Glasses Review of Systems Review of Systems: 14 point ROS neg unless stated in HPI Physical Exam Physical Exam: Vitals and labs reviewed General: Well appearing, elderly NAD HEENT: EOMI, PERRLA Neck: Supple Cardiac: RRR no rubs gallops. systolic murmur Lungs: CTA no rhonchi wheezing or rales Abd: S NT ND BS positive : Deffered MSK: Full ROM. No obvious deformities Ext: No Edema cyanosis Skin: Warm, Dry Neuro: AOx3 No focal deficits. Psych: Normal Mood Results & Data Results & Data Vital Signs (Past 12 Hours) Vital Signs Temp Pulse Pulse Resp BP BP Pulse Ox 03/10/25 18:00 69 19 164/80 H 94 03/10/25 16:00 60 20 144/101 H 98 03/10/25 14:00 60 18 138/73 97 03/10/25 12:54 63 21 136/73 97 03/10/25 12:53 65 03/10/25 12:24 36.8 C 70 18 153/72 H 97 O2 Del Method 03/10/25 18:00 Room Air 03/10/25 16:00 Room Air 03/10/25 14:00 03/10/25 12:54 Room Air 03/10/25 12:53 03/10/25 12:24 Room Air Laboratory Results Abnormal lab results 03/10/25 03/10/25 03/10/25 Range/Units 13:05 14:00 17:48 RBC 3.54 L (4.20-5.40) M/uL Hgb 10.7 L (12.0-16.0) g/dl Hct 31.9 L (37.0-47.0) % Caroline # (Auto) 0.70 H (0.11-0.59) K/uL Chloride 108 H (98-107) mmol/L BUN 26 H (6-23) mg/dl Creatinine 1.45 H (0.6-1.2) mg/dl Glucose 132 H (70-99(Fasting)) mg/dl Magnesium 1.5 L (1.7-2.4) mg/dl AST 70 H (13-39) U/L ALT 92 H (7-52) U/L Troponin I High Sens 15.9 H 26.5 H D (0-14) pg/ml TSH 4.817 H (0.300-4.500) uIu/ml Urine Protein 1+ H (Negative) Ur Leukocyte Esterase 2+ H (Negative) Urine WBC (Auto) 6-10 H (0-5) /hpf U Epithel Cells (Auto) 6-10 H (0-2) /hpf Diagnostic Findings Chest X-Ray 03/10/25 13:53 XR chest 1V portable CLINICAL HISTORY: weak COMPARISON STUDY: 02/20/2025 FINDINGS: Heart size and pulmonary vasculature are normal. No consolidation or pleural effusion seen. No pneumothorax. IMPRESSION: No acute findings. ACT 112: Negative or not required by law. Electronically signed by: Valdemar Vaughn M.D. 03/10/2025 2:34 PM Code Status & VTE Plan Code Status full VTE Prophylaxis Plan VTE Prophylaxis will be ordered: Yes
[2025-03-10] MEDS ORDERED: ACETAMINOPHEN 325 MG TAB PO PRN (21:09)
[2025-03-10] MEDS ORDERED: ONDANSETRON INJ 2 MG/ML 2 ML VIAL IV PRN (21:09)
[2025-03-10] MEDS: HEPARIN SOD 5,000 UNIT/0.5 ML VIAL SQ SCH (21:33)
[2025-03-11 00:33] VITALS: RESP 20
[2025-03-11] MEDS: LEVOTHYROXINE SODIUM 75 MCG TABLET PO SCH (06:05)
[2025-03-11 06:32] LABS: Hematocrit (blood only) 29.9 % (37.0-47.0); Hemoglobin 9.6 g/dl (12.0-16.0); Mean Corpuscular Hemoglobin 28.8 pg (25.0-34.0); Mean Corpuscular Volume 89.8 fL (80.0-100.0); Platelet Count 196 K/uL (130-400); RDW Standard Deviation 44.2 fL (36.4-46.3); Red Blood Count 3.33 M/uL (4.20-5.40); White Blood Count 6.62 K/ul (4.8-10.8)
[2025-03-11 07:01] LABS: Anion Gap 6.0 (3-11); Blood Urea Nitrogen 21.0 mg/dl (6-23); Calcium 9.3 mg/dl (8.6-10.3); Carbon Dioxide 26.0 mmol/L (21-32); Chloride 110.0 mmol/L (98-107); Creatinine Clr Calc Pharmacy 30.3 ml/min; Glucose 124.0 mg/dl (70-99(Fasting)); Magnesium 1.8 mg/dl (1.7-2.4); Potassium 4.2 mmol/L (3.5-5.1); Sodium 142.0 mmol/L (136-145)
[2025-03-11 07:40] VITALS: BP 127/65; PULSE 67; TEMP 97.7; O2SAT 93
[2025-03-11] MEDS: LOSARTAN POTASSIUM 50 MG TAB PO SCH (08:39)
[2025-03-11] MEDS: ASPIRIN 81 MG ECTAB PO SCH (08:39)
[2025-03-11] MEDS: FERROUS SULFATE 325 MG TAB PO SCH (08:39)
--- NOTE | 2025-03-11 09:56 | Discharge Summary ---
<Statement entered by Chino Stark, DO - 03/11/25 12:56> I have seen and examined the patient and have discussed the case with the advance practice provider. I have reviewed the advanced practitioner's documentation, and I agree with, and take responsibility for that plan of care. at bedside with patient. Both feel confident that she will do well at home. understands that her dementia may cause some of the symptoms to wax and wane and occur intermittently. Further discharge plans as outlined below I spent a total of 14 minutes coordinating, documenting, and providing care for this patient excluding time spent by another provider/QHP. 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 Generalized weakness, resolved Hypomagnesemia Pt denied any generalized weakness on admission and during eval this AM. Labs grossly benign, UA with 2+ LE however pt is asymptomatic in this regard w/o fever or leukocytosis. RVP negative. Lyme disease screen negative. CXR benign. Per conversation with pt's this AM, he mentions she was c/o some weakness over the weekend. No reported falls or trauma. Did note some hypomagnesemia initially which oral supplementation has been ordered for. -Could be contributing factor to her weakness. -Additional electrolytes all WNL. Pt endorses feeling well this AM, eager to go home. Cannot remember exactly why she came to the hospital >> underlying dementia likely contributing. Independent in room, no major complaints. Lives with her , Van, who is agreeable with taking her home. Declined need for any home services. Elevated troponin Downtrended appropriately, no reported cardiopulmonary complaints. EKG reviewed: some T wave changes in inferior leads (unchanged from prior), no ST segment changes. Telemetry personally reviewed and benign, doubt ACS. Elevated troponin possibly 2/2 chronic renal insufficiency, chronic anemia. Continue ASA 81mg daily. Hypothyroidism TSH slightly elevated but free T4 WNL. TSH considered acceptable range for age, continue levothyroxine. CKD stage IIIb/IV Follows with Dr. Arminda Silverio. Cr stable, baseline Cr around 1.3-1.5 per chart review. Education provided on the importance of avoiding nephrotoxic agents as able. Dementia Lives with her as per above. Mentation appears to be at baseline per d/w her . PCP: Milton Balderas MD Disposition: Patient is being DC'd home in stable condition with PCP f/u next week. Patient seen in collaboration with Dr. Stark. Please see addendum. I spent a total of 65 minutes coordinating, documenting, and providing care for this patient excluding time spent in the performance of separately billed services or time spent by another provider/QHP. This included personally reviewing all current laboratories and imaging studies, medical reconciliation, outpatient chart review and discussion with specialists. This chart was completed in part utilizing Speech Voice Recognition Software. Grammatical errors, random word insertions, pronoun errors, and incomplete sentences are an occasional consequence of this system due to software limitations, ambient noise, and hardware issues. Any formal questions or concerns about the content, text, or information contained within the body of this dictation should be directly addressed to the provider for clarification. Notes For Next Care Provider Recommend repeat serum magnesium level and BMP within the next 2-4 weeks to monitor electrolytes. Medication Changes From Visit Added on magnesium supplementation. Otherwise no other medication changes were made. Admission HPI Per Admitting Provider Ms. Francisco is a very pleasant 89F with PMH SVT, HTN, DORIS on CPAP, GERD, NIDDM, hypothyroidism, CKD3, chronic Fe def anemia, mild cognitive impairment who presents with generalized weakness. She actually denies weakness to author but endorsed to her who sent her to the ED. not available at bedside. Other than being cold, she denies any complaints to author at this time. Patient denies F/C, BECKER, vision changes, CP, palpitations, SOB, dyspnea, abd pain, N/V/D dysuria polyuria, flank pain. ED vitals stable other htan mild HTN Admission Exam Per Admitting Provider Vitals and labs reviewed General: Well appearing, elderly NAD HEENT: EOMI, PERRLA Neck: Supple Cardiac: RRR no rubs gallops. systolic murmur Lungs: CTA no rhonchi wheezing or rales Abd: S NT ND BS positive : Deffered MSK: Full ROM. No obvious deformities Ext: No Edema cyanosis Skin: Warm, Dry Neuro: AOx3 No focal deficits. Psych: Normal Mood Discharge Exam General: Elderly female, NAD. Sitting up in bedside chair. A&Ox3 with direct conversation, periods of forgetfulness in setting of underlying dementia. Pleasant. HEENT: Normocephalic, atraumatic. External ear and nose normal, oropharynx normal. Respiratory: Normal respiratory effort, CTAB. Cardiovascular: RRR, normal peripheral pulses, no BLE edema. Abdomen/GI: Normal bowel sounds, soft, nontender to palpation in all quadrants. Extremities/Musculoskeletal: No cyanosis or clubbing, extremities motor strength intact, moves all extremities. Neurologic: No overt focal deficits, CN's II-XI not formally tested but appear grossly intact bilaterally. Updated Medication List Medication Instructions Recorded Confirmed Type aspirin 81 mg tablet,delayed 81 mg PO DAILY 06/20/24 03/10/25 History release dulaglutide 0.75 mg/0.5 mL 0.75 mg subcut WK 06/20/24 03/10/25 History subcutaneous pen injector (Trulicity) ferrous sulfate 325 mg (65 mg 325 mg PO DAILY 06/20/24 03/10/25 History iron) tablet levothyroxine 75 mcg tablet 75 mcg PO DAILYBB 06/20/24 03/10/25 History Lactobacil.acidophilus-Bifido.animalis 1 cap PO DAILY 09/10/24 03/10/25 History 5 billion cell sprinkle capsule (Probiotic) biotin 1 mg tablet 1 mg PO DAILY 09/10/24 03/10/25 History cholecalciferol (vitamin D3) 25 25 mcg PO DAILY 09/10/24 03/10/25 History mcg (1,000 unit) capsule (Vitamin D3) epoetin lou 10,000 unit/mL 10,000 unit subcut MONTHLY PRN IF 09/10/24 03/10/25 History injection solution (Procrit) NEEDED PER PT/MD psyllium husk 0.4 gram capsule 0.4 g PO Q OTHER DAY 09/10/24 03/10/25 History (Metamucil) patiromer calcium sorbitex 8.4 8.4 g PO Q OTHER DAY 12/13/24 03/10/25 History gram oral powder packet (Veltassa) amlodipine 5 mg tablet 10 mg (2 x 5 mg) PO DAILY #30 tabs 12/15/24 03/10/25 Rx losartan 50 mg tablet 100 mg (2 x 50 mg) PO DAILY #60 12/15/24 03/10/25 Rx tabs triamcinolone acetonide 0.1 % 1 applic topical BID PRN Rash 02/20/25 03/10/25 History topical cream magnesium 200 mg tablet 200 mg PO DAILY #30 tabs 03/11/25 Rx Hospital Stay Data Consultations 03/10/25 18:53 ED Decision to Admit Stat Pending Results Patient Have Any Pending Studies at Discharge: No Discharge Instructions Given to Patient (Per Discharging Provider) Please attend your PCP hospital discharge follow-up appointment as scheduled. Seek medical attention if you have: * temperature above 101F * chest pain or trouble breathing * abdominal pain, nausea, vomiting * diarrhea, dark stools or bloody stools * any unanswered questions or concerns Call 911 if symptoms are severe. Please take good care of yourself. It has been a pleasure taking care of you. If you have any questions regarding your recent hospitalization, please contact [facility] and request a [facility] Hospitalist @ [phone]. Total Time Total Time Spent Total Time Spent (In Minutes): 65
--- NOTE | 2025-03-11 11:50 | Electrocardiogram Report ---
Test Reason : Blood Pressure : */* mmHG Vent. Rate : 69 BPM Atrial Rate : 69 BPM P-R Int : 138 ms QRS Dur : 88 ms QT Int : 392 ms P-R-T Axes : 64 48 211 degrees QTcB Int : 420 ms Normal sinus rhythm Abnormal ECG When compared with ECG of 20-Feb-2025 19:34, Inverted T waves have replaced nonspecific T wave abnormality in Inferior leads Confirmed by Gómez Victoria ([id number]) on 03/11/2025 11:49:43 AM Referred By: Confirmed By: Gómez Victoria
[2025-03-11] MEDS ORDERED: PATIROMER CALCIUM SORBITEX 8.4 GM PACK PO SCH (12:00)
== END 2025-03-11 11:09 | disposition home or self-care (01) ==
LOC: ED 12:19 → INTOOBSV 19:11 → 2N 19:11 → SUATTDRO 19:11 → 2N 20:54